=== PATIENT | male | born 1935 | race Caucasian/White ===

== ENCOUNTER → 2017-02-05 | Outpatient (CLI) | payer BC ==
[~2017-02-05] MED LIST: ASPEC325 PO; CRD30 PO; DILT120C68 PO; GLIP-197 PO; LISI40TA PO; LOSA100T65 PO; METO100T44 PO; METO50TA7 PO; MULT-506 PO; MULT-513 PO; OMEP40CA PO; OMEP40CA41 PO; PANT40TA PO; RANI150T3 PO; RIVA1TAB4 PO; SIMV40TA2 PO; SUCR5SUS PO
[2017-02-05 11:23] LABS: ALT/SGPT 24 U/L (12-78); BLOOD UREA NITROGEN 16 mg/dl (7-18); BUN/CREATININE RATIO 11.1 (10-20); CALCIUM 8.8 mg/dl (8.5-10.1); CARBON DIOXIDE 28 mmol/L (21-32); CHLORIDE 106 mmol/L (98-107); CHOLESTEROL 104 mg/dl (0-200); GLUCOSE 164 mg/dl (70-99); POTASSIUM 4.5 mmol/L (3.5-5.1); SODIUM 141 mmol/L (136-145)
[2017-02-05 11:33] LABS: ALB/GLOB RATIO 1.4 (0.9-2); ALKALINE PHOSPHATASE 65 U/L (45-117); AST/SGOT 12 U/L (15-37); CHOLESTEROL/HDL RATIO 2.9; HDL CHOLESTEROL 36 mg/dl; LDL CHOLESTEROL CALCULATED 27 mg/dl; TRIGLYCERIDES 205 mg/dl (0-150); VERY LOW DENSITY LIPOPROT CALC 41 mg/dl
[2017-02-05 11:36] LABS: ESTIMATED AVERAGE GLUCOSE 163 mg/dl; HA1C FLAG Normal (Normal)
[2017-02-05 11:36] LABS: RATIO 51.6 mcg/mg (0-30.0)
== END | disposition home or self-care (01) ==
LOC: C.LABBC 07:40
PROVIDERS: ATTEND Family Medicine
DX: E11.9 Type 2 diabetes mellitus without complications (principal); I10 Essential (primary) hypertension; I48.92 Unspecified atrial flutter; E78.5 Hyperlipidemia, unspecified

== ENCOUNTER 2017-02-10 12:04 | Inpatient (IN) | payer BC, OTHER ==
[~2017-02-10] VITALS: Ht 180.3 cm; Wt 82.2 kg
[~2017-02-10 12:04] MED LIST changes: -CRD30 PO; -DILT120C68 PO; -LOSA100T65 PO; -METO100T44 PO; -MULT-506 PO; -OMEP40CA41 PO; -PANT40TA PO; -SUCR5SUS PO
[2017-02-10] MEDS ORDERED: SODIUM CHLORIDE 0.9% 1000ML 1,000 ML IV STA (12:20)
[2017-02-10] MEDS ORDERED: SODIUM CHLORIDE 0.9% 500ML 500 ML IV STA (12:20)
[2017-02-10] MEDS ORDERED: FENTANYL CITRATE INJ 50 MCG/1 ML 2 ML VIAL IV STA ×2 (12:20→14:02)
[2017-02-10] MEDS ORDERED: ONDANSETRON INJ 2 MG/ML 2 ML VIAL IV STA ×2 (12:20→14:52)
[2017-02-10] MEDS ORDERED: OPTIRAY 320 IV PRN (12:30)
--- NOTE | 2017-02-10 13:05 | EMERGENCY ROOM VISIT NOTE ---
History Report prepared by Regi: Gillian Walters Under the Supervision of: Dr. Pinky Gonzalez M.D. First contact with patient: 12:15 Chief Complaint: ABDOMINAL PAIN Stated Complaint: ABD. PAIN SINCE 5 AM History of Present Illness The patient is a 81 year old male who presents to the Emergency Room with complaints of worsening epigastric abdominal pain beginning 7 hours prior to arrival. The patient states that he woke up with abdominal pain that felt like bloating and gas. He became very uncomfortable and nauseated. The patient notes he has been vomiting but only dry heaving. He has been on a carb free diet recently and does not know if this is the cause of him going to extreme with the diet. He notes loose stools in his colostomy but denies diarrhea. The patient is on Xarelto for atrial fibrillation. 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 Review of Systems See HPI for pertinent positives & negatives. A total of 10 systems reviewed and were otherwise negative. Past Medical & Surgical Medical Problems: (1) Atrial fibrillation (2) Bowel obstruction (3) Colon cancer Surgical Problems: (1) S/P appendectomy Family History Cancer Hypertension Social History Smoking Status: Former Smoker Smokeless Tobacco Use: No Marital Status: Housing Status: lives with family Occupation Status: retired Current/Historical Medications Scheduled Glipizide (Glipizide Er), 5 MG PO DAILY Losartan Potassium (Cozaar), 100 MG PO DAILY Metoprolol Succ (Toprol Xl) (Toprol-Xl), 100 MG PO DAILY Omeprazole (Prilosec), 40 MG PO DAILY Ranitidine Hcl (Zantac), 150 MG PO PM Rivaroxaban (Xarelto), 20 MG PO DAILY Simvastatin (Zocor), 40 MG PO QPM Allergies Coded Allergies: Tetanus Toxoid (Verified Allergy, Unknown, 02/10/17) Physical Exam Vital Signs Date Time Temp Pulse Resp B/P (MAP) Pulse Ox O2 Delivery O2 Flow Rate FiO2 02/10/17 14:09 81 17 140/98 99 02/10/17 12:37 87 02/10/17 12:11 36.7 122 20 157/115 97 Room Air Physical Exam Vital signs reviewed. General: Well-appearing male, in no significant distress. HEENT: No scleral icterus, PERRLA, neck supple. Atraumatic. Cardiovascular: Regular rate and rhythm, no extra sounds. Pulmonary: Clear to auscultation bilaterally, normal work of breathing. Abdomen: Soft, minimal tenderness, mild distention, positive bowel sounds, positive tympanic. The area surrounding the left colostomy is slightly distended. The colostomy is easily penetrated with a finger. There is no apparent stricture. There is stool in the ostomy bag. Musculoskeletal: Atraumatic, no peripheral edema. Neurologic: Patient awake alert and oriented x 3 Skin: Warm, dry, no rash Medical Decision & Procedures ER Provider Diagnostic Interpretation: CT results as stated below per my review and radiologist interpretation: ABDOMEN AND PELVIS CT WITH IV CONTRAST CT DOSE: 539.05 mGy.cm HISTORY: Bowel distention abd distension, colostomy, h/o rectal cancer TECHNIQUE: Multiaxial CT images of the abdomen and pelvis were performed following the use of intravenous contrast. COMPARISON STUDY: None. This severely compromises the motility of the exam FINDINGS: Mild bibasilar dependent atelectatic change. Heart is enlarged. Mild fatty infiltration of liver. Gallbladder is negative for distention. Small renal cysts. Prior partial sigmoid and rectal resection. Unremarkable postoperative changes to the presacral region. Distended loops of proximal to mid small bowel tapering to a normal caliber small bowel in the mid abdominal region. A well-defined obstructing mass is not seen. Differential considerations include possibility of metastatic disease, developing post treatment stricture, or nonspecific enteritis. Pancreas is unremarkable. There is partial fecal is elevation of the distended loops small bowel. Colonic pattern on a postoperative basis is most likely unremarkable. There is a small component of redundancy of the colon within the subcutaneous tissues deep to the ostomy site. This does not appear to be an obstructive finding. There is a 1.8 cm node anterior to the inferior vena cava transaxial image 48. Several small mesenteric nodes are present. IMPRESSION: 1. Findings of a rectal sigmoid resection and left anterior ostomy. 2. Components of the colon are seen to be redundant within the subcutaneous tissues deep to the ostomy but this does not appear to be an obstructive finding. 3. Findings consistent with developing mid small bowel obstruction with a smoothly tapered narrowing identified in the low central abdominal region. 4. Several scattered abdominal and retroperitoneal nodes measuring up to 1.8 cm. 5. Diagnostic considerations include a developing obstruction due to post therapeutic scarring/fibrosis, versus enteritis and/or metastatic change. Electronically signed by: Jason Khan M.D. 02/10/2017 2:35 PM Dictated Date/Time: 02/10/2017 2:29 PM Laboratory Results 02/10/17 12:45 Red Blood Count 5.50, Mean Corpuscular Volume 90.0, Mean Corpuscular Hemoglobin 31.8, Mean Corpuscular Hemoglobin Concent 35.4, Mean Platelet Volume 9.8, Neutrophils (%) (Auto) 86.1, Lymphocytes (%) (Auto) 7.2, Monocytes (%) (Auto) 5.5, Eosinophils (%) (Auto) 0.4, Basophils (%) (Auto) 0.3, Neutrophils # (Auto) 8.47, Lymphocytes # (Auto) 0.71, Monocytes # (Auto) 0.54, Eosinophils # (Auto) 0.04, Basophils # (Auto) 0.03 02/10/17 12:45 Test 02/10/17 12:45 02/10/17 13:30 02/10/17 14:14 White Blood Count 9.84 K/uL (4.8-10.8) Red Blood Count 5.50 M/uL (4.7-6.1) Hemoglobin 17.5 g/dL (14.0-18.0) Hematocrit 49.5 % (42-52) Mean Corpuscular Volume 90.0 fL (80-100) Mean Corpuscular Hemoglobin 31.8 pg (25-34) Mean Corpuscular Hemoglobin Concent 35.4 g/dl (32-36) Platelet Count 211 K/uL (130-400) Mean Platelet Volume 9.8 fL (7.4-10.4) Neutrophils (%) (Auto) 86.1 % Lymphocytes (%) (Auto) 7.2 % Monocytes (%) (Auto) 5.5 % Eosinophils (%) (Auto) 0.4 % Basophils (%) (Auto) 0.3 % Neutrophils # (Auto) 8.47 K/uL (1.4-6.5) Lymphocytes # (Auto) 0.71 K/uL (1.2-3.4) Monocytes # (Auto) 0.54 K/uL (0.11-0.59) Eosinophils # (Auto) 0.04 K/uL (0-0.5) Basophils # (Auto) 0.03 K/uL (0-0.2) RDW Standard Deviation 42.4 fL (36.4-46.3) RDW Coefficient of Variation 12.9 % (11.5-14.5) Immature Granulocyte % (Auto) 0.5 % Immature Granulocyte # (Auto) 0.05 K/uL (0.00-0.02) Anion Gap 10.0 mmol/L (3-11) Est Creatinine Clear Calc Drug Dose 39.9 ml/min Estimated GFR () 46.8 Estimated GFR (Non- 40.4 BUN/Creatinine Ratio 12.4 (10-20) Calcium Level 9.7 mg/dl (8.5-10.1) Magnesium Level 2.4 mg/dl (1.8-2.4) Total Bilirubin 1.5 mg/dl (0.2-1) Direct Bilirubin 0.3 mg/dl (0-0.2) Aspartate Amino Transf (AST/SGOT) 19 U/L (15-37) Alanine Aminotransferase (ALT/SGPT) 26 U/L (12-78) Alkaline Phosphatase 84 U/L (45-117) Total Protein 8.1 gm/dl (6.4-8.2) Albumin 4.8 gm/dl (3.4-5.0) Lipase 226 U/L (73-393) Urine Color YELLOW Urine Appearance CLEAR (CLEAR) Urine pH 7.0 (4.5-7.5) Urine Specific [place] 1.023 (1.000-1.030) Urine Protein 1+ (NEG) Urine Glucose (UA) 3+ (NEG) Urine Ketones 1+ (NEG) Urine Occult Blood NEG (NEG) Urine Nitrite NEG (NEG) Urine Bilirubin NEG (NEG) Urine Urobilinogen NEG (NEG) Urine Leukocyte Esterase NEG (NEG) Urine WBC (Auto) 0 /hpf (0-5) Urine RBC (Auto) 0-4 /hpf (0-4) Urine Hyaline Casts (Auto) 1-5 /lpf (0-5) Urine Epithelial Cells (Auto) 5-10 /lpf (0-5) Urine Bacteria (Auto) NEG (NEG) Bedside Glucose 200 mg/dl (70-99) Laboratory results per my review. Medications Administered Medications (Trade) Dose Ordered Sig/Oscar Route Start Time Stop Time Status Last Admin Dose Admin Sodium Chloride 500 ml @ 999 mls/hr Q31M STAT IV 02/10/17 12:20 02/10/17 12:50 DC 02/10/17 12:20 999 MLS/HR Sodium Chloride 1,000 ml @ 125 mls/hr Q8H STAT IV 02/10/17 12:20 02/10/17 20:19 02/10/17 12:20 125 MLS/HR Ondansetron HCl (Zofran Inj) 4 mg NOW STAT IV 02/10/17 12:20 02/10/17 12:23 DC 02/10/17 12:41 4 MG Fentanyl Citrate (Fentanyl Inj) 50 mcg NOW STAT IV 02/10/17 12:20 02/10/17 12:23 DC 02/10/17 12:41 50 MCG Fentanyl Citrate (Fentanyl Inj) 50 mcg NOW STAT IV 02/10/17 14:02 02/10/17 14:03 DC 02/10/17 14:11 50 MCG Morphine Sulfate (MoRPHine SULFATE INJ) 4 mg NOW STAT IV 02/10/17 14:52 02/10/17 14:58 DC 02/10/17 15:09 4 MG Ondansetron HCl (Zofran Inj) 4 mg NOW STAT IV 02/10/17 14:52 02/10/17 14:58 DC 02/10/17 15:09 4 MG ECG Indication: abdominal pain Rate (beats per minute): 80 Rhythm: atrial fibrillation Findings: RBBB, other (PVC va Abbarent complex, repolarization abnormalities) Comparison ECG Date: when compared to December 27, 2007 A fib is new (previously documented), criteria for RBBB is once again seen ED Course 1217: Past medical records reviewed. The patient was evaluated in room C5. A complete history and physical examination was performed. 1220: Fentanyl Inj 50 mcg IV, Zofran Inj 4 mg IV, Sodium Chloride 1,000 ml @ 125 mls/hr IV, Sodium Chloride 500 ml @ 999 mls/hr IV. 1402: [id number] Per Unit 6 units SC, Fentanyl Inj 50 mcg IV. 1452: Zofran Inj 4 mg IV, Morphine Sulfate Inj 4 mg IV. 1454: I reviewed the patient's case with Dr. Inder BELCHER. He will evaluate the patient for further management. 1457: Upon reevaluation, the patient is resting comfortably. I discussed laboratory and radiographic results with the patient. She verbalized agreement of the treatment plan. I spoke with Dr. Loving of the [facility] Hospitalist Service. The patient will be evaluated for further management and care. Medical Decision Differential Diagnosis include bowel obstruction, appendicitis, diverticulitis, viral illness, cholecystitis, colitis, UTI. Medication Reconciliation: I attest that I have personally reviewed the patient' s current medication list. Blood Pressure Screening: Patient was found to have an elevated blood pressure and was referred to their primary doctor for recheck and further treatment. This patient was evaluated and appeared to be in no significant distress. IV access was obtained and laboratory work was drawn. Patient was placed on the cardiac catheterization technician and found to be in a rate controlled atrial fibrillation, which is chronic for the patient. He was hydrated with normal saline solution and given several rounds of fentanyl for his pain as well as Zofran for nausea. CT scan of the abdomen and pelvis reveals a developing SBO. Patient's laboratory work reveals a creatinine of 1.7. IV hydration has been continued. Patient required IV morphine for additional pain. Insulin was initially ordered but held as his blood sugar on recheck was 200. The case has been discussed Dr. Wiggins the hospitalist service will evaluate the patient for further management. Patient is aware of the plan and agrees. Consults Time Called: [id number] Consulting Physician: Dr. Inder BELCHER Returned Call: [phone] I reviewed the patient's case with Dr. Inder BELCHER. He will evaluate the patient for further management. Impression Primary Impression: Small bowel obstruction Scribe Attestation The scribe's documentation has been prepared under my direction and personally reviewed by me in its entirety. I confirm that the note above accurately reflects all work, treatment, procedures, and medical decision making performed by me. Departure Information Dispostion Being Evaluated By Hospitalist Referrals Alfonso Ferreira D.O.Int.Med. (PCP)
[2017-02-10] MEDS ORDERED: LOSA100T65 PO (13:08)
[2017-02-10] MEDS ORDERED: OMEP40CA41 PO (13:08)
[2017-02-10 13:16] LABS: BASO % 0.3 %; BASO ABS # 0.03 K/uL (0-0.2); COMPLETE YES; EOS % 0.4 %; HEMATOCRIT 49.5 % (42-52); IG% 0.5 %; LYMPH % 7.2 %; LYMPH ABS # 0.71 K/uL (1.2-3.4); MEAN CORPUSCULAR HEMOGLOBIN 31.8 pg (25-34); MEAN CORPUSCULAR HGB CONC 35.4 g/dl (32-36); MEAN PLATELET VOLUME 9.8 fL (7.4-10.4); MONO % 5.5 %; NEUT % 86.1 %; PLATELET COUNT 211 K/uL (130-400); WHITE BLOOD COUNT 9.84 K/uL (4.8-10.8)
[2017-02-10 13:35] LABS: BUN/CREATININE RATIO 12.4 (10-20); CALCIUM 9.7 mg/dl (8.5-10.1); CREATININE 1.6 mg/dl (0.60-1.40); MAGNESIUM 2.4 mg/dl (1.8-2.4); POTASSIUM 4.3 mmol/L (3.5-5.1)
[2017-02-10] MEDS ORDERED: NovoLIN-R INSULIN PER UNIT CHARGE SC STA (14:02)
[2017-02-10 14:14] LABS: URINE APPEARANCE CLEAR (CLEAR); URINE BILIRUBIN NEG (NEG); URINE COLOR YELLOW; URINE NITRITE NEG (NEG); URINE SPECIFIC GRAVITY 1.023 (1.000-1.030); UROBILINOGEN NEG (NEG); ZZUR CULT IF INDIC CLEAN CATCH NO
[2017-02-10 14:19] LABS: MANUAL MICROSCOPIC REQUIRED? NO; REVIEW REQ? NO
--- NOTE | 2017-02-10 14:37 | DIAGNOSTIC IMAGING REPORT ---
ABDOMEN AND PELVIS CT WITH IV CONTRAST CT DOSE: 539.05 mGy.cm HISTORY: Bowel distention abd distension, colostomy, h/o rectal cancer TECHNIQUE: Multiaxial CT images of the abdomen and pelvis were performed following the use of intravenous contrast. COMPARISON STUDY: None. This severely compromises the motility of the exam FINDINGS: Mild bibasilar dependent atelectatic change. Heart is enlarged. Mild fatty infiltration of liver. Gallbladder is negative for distention. Small renal cysts. Prior partial sigmoid and rectal resection. Unremarkable postoperative changes to the presacral region. Distended loops of proximal to mid small bowel tapering to a normal caliber small bowel in the mid abdominal region. A well-defined obstructing mass is not seen. Differential considerations include possibility of metastatic disease, developing post treatment stricture, or nonspecific enteritis. Pancreas is unremarkable. There is partial fecal is elevation of the distended loops small bowel. Colonic pattern on a postoperative basis is most likely unremarkable. There is a small component of redundancy of the colon within the subcutaneous tissues deep to the ostomy site. This does not appear to be an obstructive finding. There is a 1.8 cm node anterior to the inferior vena cava transaxial image 48. Several small mesenteric nodes are present. IMPRESSION: 1. Findings of a rectal sigmoid resection and left anterior ostomy. 2. Components of the colon are seen to be redundant within the subcutaneous tissues deep to the ostomy but this does not appear to be an obstructive finding. 3. Findings consistent with developing mid small bowel obstruction with a smoothly tapered narrowing identified in the low central abdominal region. 4. Several scattered abdominal and retroperitoneal nodes measuring up to 1.8 cm. 5. Diagnostic considerations include a developing obstruction due to post therapeutic scarring/fibrosis, versus enteritis and/or metastatic change. Electronically signed by: Jason Khan M.D. 02/10/2017 2:35 PM Dictated Date/Time: 02/10/2017 2:29 PM
[2017-02-10] MEDS ORDERED: MoRPHine SULFATE 4 MG/ML 1 ML CARP\\VIAL IV STA (14:52)
[2017-02-10] MEDS ORDERED: MoRPHine SULFATE 2 MG/ML CARP IV PRN (15:45)
[2017-02-10] MEDS ORDERED: METOPROLOL TARTRATE 1 MG/ML VIAL IV PRN (15:45)
[2017-02-10] MEDS ORDERED: OXYCODONE HCL IR 5 MG TAB (IMMEDIATE RELEASE) PO PRN (15:45)
[2017-02-10] MEDS ORDERED: DEXTROSE 50% 50 ML SYR IV PRN (15:45)
[2017-02-10] MEDS ORDERED: GLUCOSE 10 TABS/TUBE PO PRN (15:45)
[2017-02-10] MEDS ORDERED: INSULIN ASPART 100 UNITS/ML 3 ML PEN SC SCH (16:00)
[2017-02-10] MEDS ORDERED: GLUCOSE 40% GEL 15 GM TUBE PO PRN (16:15)
[2017-02-10] MEDS ORDERED: HYDROmorphone INJ 0.5 MG/0.5 ML SYR IV PRN (16:15)
[2017-02-10] MEDS ORDERED: HYDROmorphone INJ 1 MG/ML SYR IV PRN (16:15)
[2017-02-10] MEDS ORDERED: GLUCAGON FOR INJ 1 MG VIAL SQ PRN (16:15)
--- NOTE | 2017-02-10 16:15 | History and Physical ---
History & Physical Date & Time of Service: Feb 10, 2017 at 15:15 Chief Complaint: Abd. Pain Since 5 Am Primary Care Physician: No Doctor, Assigned History of Present Illness Source: patient This is a 81-year-old male with past medical history of hypertension, A. fib on xarelto, hyperlipidemia, diabetes mellitus type 2, colon cancer status post resection and colostomy placement in 1978, remote pipe smoking history ~30 yrs ago x 20 years, who presents to the ER with complaints of severe abdominal pain which started at 0500 today. Patient reports he was up and tolerated breakfast this morning without much abdominal pain or nausea. His pain became worse prior to lunch and developed nausea, so took Pepto-Bismol then developed dry heaves and vomited x 1. He denies hematemesis. Pt does not his ostomy had loose outs this morning. Pain continued to worsen so presented to the ER. Patient reports having a colostomy placed by Dr. Paris ~37 years ago in 1978. He has had multiple revisions of this surgery. Patient also reports surgical history of a left inguinal hernia repair with mesh, and notes that he has a right inguinal hernia currently which has not been surgically repaired. The patient received Morphine 4 mg IV in the ER and reports his pain is improved but still "crampy". Of note the patient does drink 1 glass of red wine daily. He lives at home with his . He does not require supplemental O2 or anything for ambulation assistance. CT was reviewed showing rectosigmoid resection and left anterior ostomy. It appears that there is a mid small bowel obstruction and multiple scattered abdominal and retroperitoneal nodes. Family History Cancer Hypertension Social History Smoking Status: Former Smoker Smokeless Tobacco Use: No Alcohol Use: heavy (1 glass of red wine daily) Drug Use: none Marital Status: Occupational Status: retired Immunizations History of Influenza Vaccine: Yes Influenza Vaccine Date: Jun 24, 2007 History of Tetanus Vaccine?: No History of Pneumococcal: No History of Hepatitis B Vaccine: No Multi-Drug Resistant Organisms History of MDRO: No Allergies Coded Allergies: Tetanus Toxoid (Verified Allergy, Unknown, 02/10/17) Home Medications Scheduled Glipizide (Glipizide Er), 5 MG PO DAILY Losartan Potassium (Cozaar), 100 MG PO DAILY Metoprolol Succ (Toprol Xl) (Toprol-Xl), 100 MG PO DAILY Omeprazole (Prilosec), 40 MG PO DAILY Ranitidine Hcl (Zantac), 150 MG PO PM Rivaroxaban (Xarelto), 20 MG PO DAILY Simvastatin (Zocor), 40 MG PO QPM Review of Systems Constitutional: No fever, sweats or chills Eyes: No diplopia, no worsening or blurred vision ENT: normal hearing, no trouble swallowing Respiratory: No cough, sputum, dyspnea at rest or on exertion Cardiovascular: No chest pain, tightness or palpitations Abdomen: See history of present illness Musculoskeletal: No joint pain, calf pain, swelling Neurologic: No weakness, numbness/tingling, or balance problems Psychiatric: No anxiety or depression Skin: No rash or itch Physical Exam Vital Signs Date Time Temp Pulse Resp B/P (MAP) Pulse Ox O2 Delivery O2 Flow Rate FiO2 02/10/17 14:09 81 17 140/98 99 02/10/17 12:37 87 02/10/17 12:11 36.7 122 20 157/115 97 Room Air General: awake, alert, no apparent distress Head: Normocephalic, atraumatic ENT: PERRL, EOMI, no pharyngeal exudate, mucous membranes moist Chest: on room air, + minor expiratory wheeze, no rales or crackles. Cardiac: Irregularly irregular, no murmur, no JVD, normal peripheral pulses, good capillary refill Abdominal: LLQ colostomy in place, no stool in bag, abdomen appears distended around the area of the ostomy, positive abdominal pain with palpation around the umbilicus, + tympany to percussion. Extremities: Normal inspection, no peripheral edema or erythema, calfs nontender to palpation Psych: Normal mood and affect Neuro: AAO x 3, speech is clear, no peripheral sensory deficits Diagnostics Laboratory Results Results Past 24 Hours Test 02/10/17 12:45 02/10/17 13:30 02/10/17 14:14 Range/Units White Blood Count 9.84 4.8-10.8 K/uL Red Blood Count 5.50 4.7-6.1 M/uL Hemoglobin 17.5 14.0-18.0 g/dL Hematocrit 49.5 42-52 % Mean Corpuscular Volume 90.0 80-100 fL Mean Corpuscular Hemoglobin 31.8 25-34 pg Mean Corpuscular Hemoglobin Concent 35.4 32-36 g/dl Platelet Count 211 130-400 K/uL Mean Platelet Volume 9.8 7.4-10.4 fL Neutrophils (%) (Auto) 86.1 % Lymphocytes (%) (Auto) 7.2 % Monocytes (%) (Auto) 5.5 % Eosinophils (%) (Auto) 0.4 % Basophils (%) (Auto) 0.3 % Neutrophils # (Auto) 8.47 1.4-6.5 K/uL Lymphocytes # (Auto) 0.71 1.2-3.4 K/uL Monocytes # (Auto) 0.54 0.11-0.59 K/uL Eosinophils # (Auto) 0.04 0-0.5 K/uL Basophils # (Auto) 0.03 0-0.2 K/uL RDW Standard Deviation 42.4 36.4-46.3 fL RDW Coefficient of Variation 12.9 11.5-14.5 % Immature Granulocyte % (Auto) 0.5 % Immature Granulocyte # (Auto) 0.05 0.00-0.02 K/uL Sodium Level 134 136-145 mmol/L Potassium Level 4.3 3.5-5.1 mmol/L Chloride Level 101 98-107 mmol/L Carbon Dioxide Level 23 21-32 mmol/L Anion Gap 10.0 3-11 mmol/L Blood Urea Nitrogen 20 7-18 mg/dl Creatinine 1.60 0.60-1.40 mg/dl Est Creatinine Clear Calc Drug Dose 39.9 ml/min Estimated GFR () 46.8 Estimated GFR (Non- 40.4 BUN/Creatinine Ratio 12.4 10-20 Random Glucose 252 70-99 mg/dl Calcium Level 9.7 8.5-10.1 mg/dl Magnesium Level 2.4 1.8-2.4 mg/dl Total Bilirubin 1.5 0.2-1 mg/dl Direct Bilirubin 0.3 0-0.2 mg/dl Aspartate Amino Transf (AST/SGOT) 19 15-37 U/L Alanine Aminotransferase (ALT/SGPT) 26 12-78 U/L Alkaline Phosphatase 84 45-117 U/L Total Protein 8.1 6.4-8.2 gm/dl Albumin 4.8 3.4-5.0 gm/dl Lipase 226 73-393 U/L Urine Color YELLOW Urine Appearance CLEAR CLEAR Urine pH 7.0 4.5-7.5 Urine Specific [place] 1.023 1.000-1.030 Urine Protein 1+ NEG Urine Glucose (UA) 3+ NEG Urine Ketones 1+ NEG Urine Occult Blood NEG NEG Urine Nitrite NEG NEG Urine Bilirubin NEG NEG Urine Urobilinogen NEG NEG Urine Leukocyte Esterase NEG NEG Urine WBC (Auto) 0 0-5 /hpf Urine RBC (Auto) 0-4 0-4 /hpf Urine Hyaline Casts (Auto) 1-5 0-5 /lpf Urine Epithelial Cells (Auto) 5-10 0-5 /lpf Urine Bacteria (Auto) NEG NEG Bedside Glucose 200 70-99 mg/dl Diagnostic Radiology ABDOMEN AND PELVIS CT WITH IV CONTRAST CT DOSE: 539.05 mGy.cm HISTORY: Bowel distention abd distension, colostomy, h/o rectal cancer TECHNIQUE: Multiaxial CT images of the abdomen and pelvis were performed following the use of intravenous contrast. COMPARISON STUDY: None. This severely compromises the motility of the exam FINDINGS: Mild bibasilar dependent atelectatic change. Heart is enlarged. Mild fatty infiltration of liver. Gallbladder is negative for distention. Small renal cysts. Prior partial sigmoid and rectal resection. Unremarkable postoperative changes to the presacral region. Distended loops of proximal to mid small bowel tapering to a normal caliber small bowel in the mid abdominal region. A well-defined obstructing mass is not seen. Differential considerations include possibility of metastatic disease, developing post treatment stricture, or nonspecific enteritis. Pancreas is unremarkable. There is partial fecal is elevation of the distended loops small bowel. Colonic pattern on a postoperative basis is most likely unremarkable. There is a small component of redundancy of the colon within the subcutaneous tissues deep to the ostomy site. This does not appear to be an obstructive finding. There is a 1.8 cm node anterior to the inferior vena cava transaxial image 48. Several small mesenteric nodes are present. IMPRESSION: 1. Findings of a rectal sigmoid resection and left anterior ostomy. 2. Components of the colon are seen to be redundant within the subcutaneous tissues deep to the ostomy but this does not appear to be an obstructive finding. 3. Findings consistent with developing mid small bowel obstruction with a smoothly tapered narrowing identified in the low central abdominal region. 4. Several scattered abdominal and retroperitoneal nodes measuring up to 1.8 cm. 5. Diagnostic considerations include a developing obstruction due to post therapeutic scarring/fibrosis, versus enteritis and/or metastatic change. Electronically signed by: Jason Khan M.D. 02/10/2017 2:35 PM Dictated Date/Time: 02/10/2017 2:29 PM The status of this report is Signed. EKG Vent. rate 80 BPM AR interval * ms QRS duration 152 ms QT/QTc 412/475 ms P-R-T axes * 115 -22 Atrial fibrillation with premature ventricular or aberrantly conducted complexes Right bundle branch block T wave abnormality, consider inferior ischemia Abnormal ECG When compared with ECG of 26-JUN-2016 07:45, Atrial fibrillation has replaced Sinus rhythm Confirmed by ALBERT MCLEAN ([id number]) on 02/10/2017 3:19:52 PM Impression Assessment and Plan This is a 81-year-old male with past medical history of hypertension, A. fib on' s around toe, hyperlipidemia, diabetes mellitus type 2, colon cancer status post resection and colostomy placement, remote smoking history of type tobacco approximately 30 yrs ago x 20 years who presents to the ER with complaints of severe abdominal pain which started at 0500 today. Small bowel obstruction s/p colon mass resection and ostomy placement in 1978 - Admit to MedSurg - Consult with general surgery, Dr. Verdin was spoken to over the phone by the attending. - Nothing by mouth for now, will start maintenance fluids with NSS at 80mL/hr - Pt may require NGT to intermittent suction overnight if his symptoms do not improve or he continues to be nauseous. - No leukocytosis, and VSS. - Will switch meds to IV if possible - PT/OT consults Hypertension - Hold CURRICULUM COACH losartan and metoprolol succinate. Can resume if allowed po meds. - We will order IV Lopressor every 4 when necessary for HR > 120 Afib - Hold xarelto for possibility of surgical intervention CKD stage III - Chronic pts Cr.= 1.6, baseline appears to be ~ 1.4 - Hold nephrotoxins - Will place on IVFs. DM II - Hold CURRICULUM COACH glipizide, will place him on an insulin sliding scale with Accu- Cheks ACHS - Last Hgb A1C checked last week = 7.2 Hyperlipidemia -Continue simvastatin DVT Prophylaxis: Teds, SCDs, hold xarelto for possible surgical intervention CODE STATUS: DO NOT RESUSCITATE Disposition: Patient from home, lives with his , will await surgical eval, likely discharge home within 1-2 days PA Physician Supervision Note: I interviewed and examined the patient. Discussed with Dali Gardner PAC and agree with findings and plan as documented in the note. Any exceptions or clarifications are listed here: None This patient has a chronic colostomy since 1975 he presents with crampy abdominal pain and nausea with dry heaves, CT scan consistent with small bowel obstruction: Exam is concerning for parastomal hernia Vital signs are reviewed and stable Abdomen is with hyperactive bowel sounds A mounding of his abdomen near stomal exit tenderness examination at that point and tympany to examine his abdomen I personally contacted Dr. Verdin, general surgery, he evaluated the patient in the ER attempted to reduce the hernia was unsuccessful he did place an NG tube evaluated in the morning with a KUB and consider surgical correction if no resolution overnight and hydrate and control the patient's pain Documented By: Zhen Loving Level of Care Med/Surg Resuscitation Status DO NOT RESUSCITATE VTE Prophylaxis VTE Risk Assessment Done? Y/N: No Risk Level: Low Given or contraindicated: Other Anticoagulation (holding xarelto), T.E.D. Stockings, SCD's
[2017-02-10 16:47] VITALS: BP 148/91; PULSE 104; TEMP 37.1; O2SAT 92; Ht 180.3 cm; Wt 82.2 kg
[2017-02-10] MEDS ORDERED: LORAZEPAM 2 MG/ML 1 ML VIAL IV PRN (17:15)
[2017-02-10] MEDS ORDERED: NURSING VERBAL MED ORDER ONE ×2 (17:15→19:45)
--- NOTE | 2017-02-10 17:16 | Surgery Consultation ---
Consultation Date of Consultation: Feb 10, 2017. Attending Physician: History of Present Illness pt woke up this am with nausea, dry heaves and some aby-umbilical discomfort...had been feeling fine prior. has hx of colectomy with colostomy since the 1970s. pain has improved since he just vomitted some fluid for first time. Past Medical/Surgical History Medical Problems: (1) Small bowel obstruction Status: Acute Family History Cancer Hypertension Social History Smoking Status: Former Smoker Smokeless Tobacco Use: No Alcohol Use: heavy (1 glass of red wine daily) Drug Use: none Marital Status: Housing Status: lives with family Occupation Status: retired Allergies Coded Allergies: Tetanus Toxoid (Verified Allergy, Unknown, 02/10/17) Home Medications Scheduled Glipizide (Glipizide Er), 5 MG PO DAILY Losartan Potassium (Cozaar), 100 MG PO DAILY Metoprolol Succ (Toprol Xl) (Toprol-Xl), 100 MG PO DAILY Omeprazole (Prilosec), 40 MG PO DAILY Ranitidine Hcl (Zantac), 150 MG PO PM Rivaroxaban (Xarelto), 20 MG PO DAILY Simvastatin (Zocor), 40 MG PO QPM Current Inpatient Medications Current Inpatient Medications Medications (Trade) Dose Ordered Sig/Oscar Route Start Time Stop Time Status Last Admin Dose Admin Sodium Chloride 1,000 ml @ 125 mls/hr Q8H STAT IV 02/10/17 12:20 02/10/17 20:19 02/10/17 12:20 125 MLS/HR Ioversol (Optiray 320) 125 ml UD PRN IV 02/10/17 12:30 02/14/17 12:29 Ondansetron HCl (Zofran Inj) 4 mg Q6H PRN IV 02/10/17 15:45 03/12/17 15:44 Metoprolol Tartrate (Lopressor Iv) 5 mg Q4H PRN IV 02/10/17 15:45 03/12/17 15:44 UNV Insulin Aspart (novoLOG ASPART) SLIDING SCALE If C... ACHS SC 02/10/17 16:00 03/12/17 15:59 Glucose (Glucose Chew Tab) 4-8 Tablets 4 Tabl... UD PRN PO 02/10/17 15:45 03/12/17 15:44 Dextrose (Dextrose 50% 50ML Syringe) 25-50ML OF 50% DW IV FOR... UD PRN IV 02/10/17 15:45 03/12/17 15:44 Oxycodone HCl (Roxicodone Immediate Rel Tab) 5 mg Q4H PRN PO 02/10/17 15:45 02/24/17 15:44 Glucose (Glucose 40% Gel) 15-30 GRAMS 15 GRAMS... UD PRN PO 02/10/17 16:15 03/12/17 16:14 Glucagon (Glucagon Inj) 1 mg UD PRN SQ 02/10/17 16:15 03/12/17 16:14 Hydromorphone HCl (Dilaudid Inj) 0.5 mg Q2H PRN IV 02/10/17 16:15 02/24/17 16:14 Hydromorphone HCl (Dilaudid Inj) 1 mg Q4H PRN IV 02/10/17 16:15 02/24/17 16:14 Miscellaneous Information (Nursing Verbal Med Order) 1 ea ONE ONCE N/A 02/10/17 17:15 02/10/17 17:16 UNV Review of Systems Abdomen: + pain, + nausea, + vomiting Physical Exam Date Time Temp Pulse Resp B/P (MAP) Pulse Ox O2 Delivery O2 Flow Rate FiO2 02/10/17 16:10 90 20 153/95 96 Room Air 02/10/17 14:09 81 17 140/98 99 02/10/17 12:37 87 02/10/17 12:11 36.7 122 20 157/115 97 Room Air General Appearance: + mild distress Head: normocephalic, atraumatic Eyes: normal inspection, EOMI ENT: hearing grossly normal Neck: supple, no JVD Respiratory/Chest: no respiratory distress, no accessory muscle use Abdomen/GI: soft, + tenderness, + distended, + hernia, + pertinent finding ( digitilized stoma without success. also attempted placement of red rubber cath without success. stoma pink. minimal tenderness. + parastomal hernia. non- reducible) Neurologic/Psych: alert, oriented x 3 Skin: normal color, warm/dry Laboratory Results Last 24 Hours Test 02/10/17 12:45 02/10/17 13:30 02/10/17 14:14 White Blood Count 9.84 K/uL Red Blood Count 5.50 M/uL Hemoglobin 17.5 g/dL Hematocrit 49.5 % Mean Corpuscular Volume 90.0 fL Mean Corpuscular Hemoglobin 31.8 pg Mean Corpuscular Hemoglobin Concent 35.4 g/dl Platelet Count 211 K/uL Mean Platelet Volume 9.8 fL Neutrophils (%) (Auto) 86.1 % Lymphocytes (%) (Auto) 7.2 % Monocytes (%) (Auto) 5.5 % Eosinophils (%) (Auto) 0.4 % Basophils (%) (Auto) 0.3 % Neutrophils # (Auto) 8.47 K/uL Lymphocytes # (Auto) 0.71 K/uL Monocytes # (Auto) 0.54 K/uL Eosinophils # (Auto) 0.04 K/uL Basophils # (Auto) 0.03 K/uL RDW Standard Deviation 42.4 fL RDW Coefficient of Variation 12.9 % Immature Granulocyte % (Auto) 0.5 % Immature Granulocyte # (Auto) 0.05 K/uL Sodium Level 134 mmol/L Potassium Level 4.3 mmol/L Chloride Level 101 mmol/L Carbon Dioxide Level 23 mmol/L Anion Gap 10.0 mmol/L Blood Urea Nitrogen 20 mg/dl Creatinine 1.60 mg/dl Est Creatinine Clear Calc Drug Dose 39.9 ml/min Estimated GFR () 46.8 Estimated GFR (Non- 40.4 BUN/Creatinine Ratio 12.4 Random Glucose 252 mg/dl Calcium Level 9.7 mg/dl Magnesium Level 2.4 mg/dl Total Bilirubin 1.5 mg/dl Direct Bilirubin 0.3 mg/dl Aspartate Amino Transf (AST/SGOT) 19 U/L Alanine Aminotransferase (ALT/SGPT) 26 U/L Alkaline Phosphatase 84 U/L Total Protein 8.1 gm/dl Albumin 4.8 gm/dl Lipase 226 U/L Urine Color YELLOW Urine Appearance CLEAR Urine pH 7.0 Urine Specific [place] 1.023 Urine Protein 1+ Urine Glucose (UA) 3+ Urine Ketones 1+ Urine Occult Blood NEG Urine Nitrite NEG Urine Bilirubin NEG Urine Urobilinogen NEG Urine Leukocyte Esterase NEG Urine WBC (Auto) 0 /hpf Urine RBC (Auto) 0-4 /hpf Urine Hyaline Casts (Auto) 1-5 /lpf Urine Epithelial Cells (Auto) 5-10 /lpf Urine Bacteria (Auto) NEG Bedside Glucose 200 mg/dl Assessment & Plan SBO likely secondary to parastomal hernia clinically does not appear to have ischemia feeling somewhat better since he finally had some emesis attempted manual reduction without success. digitilized the stoma with finger and red rubber cath without success pt agreeable now to attempt NGT. discussed with nursing. give ativan and some dilaudid to help accomplish this IVF. repeat KUB in AM. if no considerable improvement may need OR for release SBO and repair parastomal hernia. not urgent at this point. abdomen minimally tender. will follow closely.
[2017-02-10] MEDS ORDERED: LORAZEPAM 2 MG/ML 1 ML VIAL ONE (17:26)
[2017-02-10] MEDS ORDERED: HydrALAZINE HCL 20 MG/ML VIAL IV PRN (18:00)
[2017-02-10] MEDS: INSULIN ASPART 100 UNITS/ML 3 ML PEN SC SCH ×2 (19:05→23:50)
[2017-02-10] MEDS: SODIUM CHLORIDE 0.9% 1000ML 1,000 ML IV SCH (19:58)
[2017-02-10] MEDS: METOPROLOL TARTRATE 25 MG TAB PO SCH (20:44)
[2017-02-10 22:45] VITALS: BP 164/98; PULSE 117; TEMP 36.6; O2SAT 93
[2017-02-10] MEDS: LORAZEPAM INJ 1 MG in SYRINGE 0.5 ML IV PRN (23:47)
[2017-02-11] VITALS (8 sets, daily range): BP systolic 102–134; BP diastolic 64–92; PULSE 90–133; TEMP 36.4–37.3; O2SAT 91–96
[2017-02-11] MEDS: INSULIN ASPART 100 UNITS/ML 3 ML PEN SC SCH ×4 (05:41→23:52)
[2017-02-11 06:40] LABS: BASO % 0.2 %; BASO ABS # 0.02 K/uL (0-0.2); COMPLETE YES; HEMATOCRIT 46.5 % (42-52); IG% 0.1 %; LYMPH % 5.2 %; MEAN CELL VOLUME 89.8 fL (80-100); MEAN CORPUSCULAR HEMOGLOBIN 30.7 pg (25-34); MEAN CORPUSCULAR HGB CONC 34.2 g/dl (32-36); MEAN PLATELET VOLUME 9.1 fL (7.4-10.4); MONO % 11.5 %; PLATELET COUNT 188 K/uL (130-400); RED BLOOD COUNT 5.18 M/uL (4.7-6.1); WHITE BLOOD COUNT 9.53 K/uL (4.8-10.8)
[2017-02-11 07:01] LABS: BUN/CREATININE RATIO 13.8 (10-20); CALCIUM 8.8 mg/dl (8.5-10.1); CREATININE 1.2 mg/dl (0.60-1.40); POTASSIUM 4.4 mmol/L (3.5-5.1)
[2017-02-11] MEDS: SODIUM CHLORIDE 0.9% 1000ML 1,000 ML IV SCH ×3 (07:55→18:46)
--- NOTE | 2017-02-11 08:26 | DIAGNOSTIC IMAGING REPORT ---
KUB CLINICAL HISTORY: Small bowel obstruction. FINDINGS: 2 AP, portable, supine abdominal radiographs are correlated with abdominal CT dated 02/10/2017. An enteric tube has been placed. The tip projects over the proximal stomach. The side holes are located above the diaphragm. There is persistent gaseous distention of the small bowel with loops measuring up to 4 cm. The appearance remains consistent with small bowel obstruction. Fecal retention is noted in the right colon. No evidence of intraperitoneal free air is seen on these supine images. Postoperative change is noted in the pelvis. Excreted contrast fills the bladder. The skeletal structures are osteopenic. A right hip arthroplasty is in place. Lumbosacral spondylosis is noted. The heart is enlarged and the lung bases are clear as visualized. IMPRESSION: 1. An enteric tube has been placed. The tip projects over the proximal stomach with the side holes above the diaphragm. This should be advanced. 2. There is evidence of persistent small bowel obstruction. Electronically signed by: Behzad Bradley M.D. 02/11/2017 8:24 AM Dictated Date/Time: 02/11/2017 8:22 AM
[2017-02-11] MEDS ORDERED: SODIUM CHLORIDE 0.9% 500ML 500 ML IV SCH (08:30)
[2017-02-11 09:14] LABS: INR 1.1 (0.9-1.1); PARTIAL THROMBOPLASTIN RATIO 1.2; PROTHROMBIN TIME (PATIENT) 11.9 SECONDS (9.0-12.0)
[2017-02-11] MEDS: METOPROLOL TARTRATE 25 MG TAB PO SCH ×2 (09:25→21:20)
[2017-02-11] MEDS ORDERED: NEOSTIGMINE METHYLSULFATE 5 MG/5 ML SYR ONE (09:43)
[2017-02-11] MEDS ORDERED: ROCURONIUM BROMIDE 10 MG/ML 5 ML VIAL ONE (09:43)
[2017-02-11] MEDS ORDERED: MIDAZOLAM HCL 1 MG/ML 2ML VIAL ONE (09:43)
[2017-02-11] MEDS ORDERED: PROPOFOL IV EMULSION 10 MG/ML 20 ML VIAL IV ONE (09:43)
[2017-02-11] MEDS ORDERED: ONDANSETRON INJ 2 MG/ML 2 ML VIAL ONE (09:43)
[2017-02-11] MEDS ORDERED: GLYCOPYRROLATE INJ 0.2 MG/ML VIAL ONE (09:43)
[2017-02-11] MEDS ORDERED: FENTANYL CITRATE INJ 50 MCG/1 ML 2 ML VIAL ONE (09:43)
[2017-02-11] MEDS ORDERED: DEXAMETHASONE SOD INJ 4 MG/ML VIAL ONE (09:43)
--- NOTE | 2017-02-11 09:55 | History & Physical Bridge Note ---
H&P Re-Evaluation Bridge Note: I have examined the patient, reviewed the History & Physical and in the interval since the performance of the History & Physical I have noted the following changes of clinical significance: No changes noted reviewed ct scan and examined pt appears to have small bowel obstruction in lower abd with transition point will plan exp discussed with pt since clinically pt have more abd pain
[2017-02-11] MEDS ORDERED: PROMETHAZINE HCL INJ 6.25 MG in SODIUM CHLORIDE 0.9% 50ML 50 ML IV PRN (11:00)
[2017-02-11] MEDS ORDERED: HYDROmorphone INJ 1 MG/ML SYR IV PRN (11:00)
[2017-02-11] MEDS ORDERED: ATROPINE SULFATE 0.1 MG/ML 5ML SYR IV PRN (11:00)
[2017-02-11] MEDS ORDERED: ONDANSETRON INJ 2 MG/ML 2 ML VIAL IV PRN (11:00)
[2017-02-11] MEDS ORDERED: EpHEDrine SULFATE INJ 50 MG/ML AMP IV PRN (11:00)
--- NOTE | 2017-02-11 11:30 | [facility] Operative Report ---
Operative Report Operative Date Feb 11, 2017. Pre-Operative Diagnosis Small bowel obstruction Post-Operative Diagnosis sbo secondary to adhesions Procedure(s) Performed exp lap lyses of adhesion closure small bowel enterotomy Surgeon Dr Cameron Residential Le[employer] Agent Surgeon(s) Baljeet Bob PA-C Estimated Blood Loss 30cc Findings distal jejunum adhesion to left lower quadrant causing near complete obstruction , enterotomy near to obstructing bands Specimens Culture #1 urine catheed for culture and sensitivity Drains 1/4 inch lise sub cut I attest to the content of the Intraoperative Record and any orders documented therein. Any exceptions are noted below.
[2017-02-11] MEDS: FENTANYL CITRATE INJ 50 MCG/1 ML 2 ML VIAL IV PRN ×4 (11:52→12:22)
[2017-02-11] MEDS ORDERED: DILTIAZEM BOLUS / DRIP IV STA (12:02)
[2017-02-11] MEDS ORDERED: DILTIAZEM HCL INJ 125 MG in DEXTROSE 5% 100ML IV PRN (12:15)
[2017-02-11] MEDS ORDERED: DILTIAZEM HCL IV ONE (12:15)
--- NOTE | 2017-02-11 12:23 | Hospitalist Progress Note ---
Hospitalist Progress Note Date of Service Feb 11, 2017. (Melba Martin ., PA-C) Subjective Pt evaluation today including: conversation w/ patient, conversation w/ family (Son- at bedside ), physical exam, chart review, lab review, review of studies, review of inpatient medication list Voiding: pond catheter in place Patient states he is feeling OK postop. Oriented x3, a little groggy. NG tube in place- currently NPO except meds. States he has "bad" acid reflux and concerned because he isn't getting his medications- resume Zantac and Protonix Pain is currently present, but well controlled. Patient denies any fever, chills, sweats, lightheadedness, dizziness, vision changes, CP, palpitations, edema, SOB, wheezing, cough, nausea, vomiting, diarrhea, urinary symptoms, melena, numbness/tingling, weakness, muscle/joint pain, anxiety/depression, active bleeding, or new skin discoloration/changes. (Melba Martin ., PA-C) Medications Current Inpatient Medications Medications (Trade) Dose Ordered Sig/Oscar Route Start Time Stop Time Status Last Admin Dose Admin Ioversol (Optiray 320) 125 ml UD PRN IV 02/10/17 12:30 02/14/17 12:29 Ondansetron HCl (Zofran Inj) 4 mg Q6H PRN IV 02/10/17 15:45 03/12/17 15:44 Glucose (Glucose Chew Tab) 4-8 Tablets 4 Tabl... UD PRN PO 02/10/17 15:45 03/12/17 15:44 Dextrose (Dextrose 50% 50ML Syringe) 25-50ML OF 50% DW IV FOR... UD PRN IV 02/10/17 15:45 03/12/17 15:44 Oxycodone HCl (Roxicodone Immediate Rel Tab) 5 mg Q4H PRN PO 02/10/17 15:45 02/24/17 15:44 Glucose (Glucose 40% Gel) 15-30 GRAMS 15 GRAMS... UD PRN PO 02/10/17 16:15 03/12/17 16:14 Glucagon (Glucagon Inj) 1 mg UD PRN SQ 02/10/17 16:15 03/12/17 16:14 Insulin Aspart (novoLOG ASPART) SLIDING SCALE If C... Q6 SC 02/10/17 18:00 03/12/17 17:59 02/11/17 05:41 1 UNITS Metoprolol Tartrate (Lopressor Tab) 25 mg BID PO 02/10/17 21:00 03/12/17 20:59 02/11/17 09:25 25 MG Hydralazine HCl (HydrALAZINE INJ) 10 mg Q4H PRN IV 02/10/17 18:00 03/12/17 17:59 02/10/17 23:47 10 MG Lorazepam 1 mg/ Syringe 1 ml @ 1 mls/min Q8H PRN IV 02/10/17 18:30 03/12/17 18:29 02/10/17 23:47 1 MLS/MIN Fentanyl Citrate (Fentanyl Inj) 50 mcg Q5M PRN IV 02/11/17 11:00 02/11/17 16:00 02/11/17 12:22 50 MCG Hydromorphone HCl (Dilaudid Inj) 0.5 mg Q5M PRN IV 02/11/17 11:00 02/11/17 16:00 Ondansetron HCl (Zofran Inj) 4 mg ONE PRN IV 02/11/17 11:00 02/11/17 16:00 Promethazine HCl 6.25 mg/Sodium Chloride 50.25 ml @ 202 mls/hr ONE PRN IV 02/11/17 11:00 02/11/17 16:00 Ephedrine Sulfate (EpHEDrine SULFATE INJ) 5 mg Q5M PRN IV 02/11/17 11:00 02/11/17 16:00 Atropine Sulfate (Atropine Sulfate 0.1MG/Ml Inj) 0.5 mg Q1M PRN IV 02/11/17 11:00 02/11/17 16:00 Cefoxitin Sodium 2000 mg/Dextrose 60 ml @ 100 mls/hr Q6H IV 02/11/17 19:00 02/12/17 18:59 Hydromorphone HCl (Dilaudid Inj) 1 mg Q1H PRN IV 02/11/17 11:45 02/25/17 11:44 02/11/17 13:43 1 MG Sodium Chloride 1,000 ml @ 150 mls/hr Q6H40M IV 02/11/17 12:00 03/13/17 11:59 02/11/17 13:42 150 MLS/HR Heparin Sodium (Porcine) (Heparin Sq 5000 Unit/0.5ml) 5,000 unit Q12 SQ 02/11/17 21:00 03/13/17 20:59 Diltiazem HCl 125 mg/Dextrose 125 ml @ 0 mls/hr Q0M PRN IV 02/11/17 12:15 02/11/17 17:15 02/11/17 12:26 10 MLS/HR (Melba Martin PA-C) Objective Vital Signs Date Time Temp Pulse Resp B/P (MAP) Pulse Ox O2 Delivery O2 Flow Rate FiO2 02/11/17 08:50 36.8 125 19 132/92 (105) 95 Room Air 02/11/17 07:30 Room Air 02/11/17 04:15 116 02/11/17 03:58 36.7 133 17 124/77 (93) 93 Room Air 02/10/17 23:15 Room Air 02/10/17 22:45 36.6 117 15 164/98 (120) 93 Room Air 02/10/17 20:00 Room Air 02/10/17 16:47 37.1 104 16 148/91 92 Room Air 02/10/17 16:10 90 20 153/95 96 Room Air 02/10/17 14:09 81 17 140/98 99 02/10/17 12:37 87 02/10/17 12:11 36.7 122 20 157/115 97 Room Air (Melba Martin PA-C) Physical Exam General Appearance: no apparent distress, + pertinent finding (OxyMask; NG tube ) Eyes: normal inspection, PERRL ENT: hearing grossly normal Neck: supple Respiratory/Chest: lungs clear, no respiratory distress, no accessory muscle use Cardiovascular: + irregularly irregular (rate controlled ) Abdomen: normal bowel sounds, + tenderness (around incision site), + pertinent finding (ostomy LLQ- no stool present ) Extremities: no pedal edema, no calf tenderness 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: alert, normal mood/affect, oriented x 3 Skin: normal color, warm/dry, no rash (Melba Martin PA-C) Laboratory Results Last 24 Hours Test 02/10/17 12:45 02/10/17 13:30 02/10/17 14:14 02/10/17 18:23 White Blood Count 9.84 K/uL Red Blood Count 5.50 M/uL Hemoglobin 17.5 g/dL Hematocrit 49.5 % Mean Corpuscular Volume 90.0 fL Mean Corpuscular Hemoglobin 31.8 pg Mean Corpuscular Hemoglobin Concent 35.4 g/dl Platelet Count 211 K/uL Mean Platelet Volume 9.8 fL Neutrophils (%) (Auto) 86.1 % Lymphocytes (%) (Auto) 7.2 % Monocytes (%) (Auto) 5.5 % Eosinophils (%) (Auto) 0.4 % Basophils (%) (Auto) 0.3 % Neutrophils # (Auto) 8.47 K/uL Lymphocytes # (Auto) 0.71 K/uL Monocytes # (Auto) 0.54 K/uL Eosinophils # (Auto) 0.04 K/uL Basophils # (Auto) 0.03 K/uL RDW Standard Deviation 42.4 fL RDW Coefficient of Variation 12.9 % Immature Granulocyte % (Auto) 0.5 % Immature Granulocyte # (Auto) 0.05 K/uL Sodium Level 134 mmol/L Potassium Level 4.3 mmol/L Chloride Level 101 mmol/L Carbon Dioxide Level 23 mmol/L Anion Gap 10.0 mmol/L Blood Urea Nitrogen 20 mg/dl Creatinine 1.60 mg/dl Est Creatinine Clear Calc Drug Dose 39.9 ml/min Estimated GFR () 46.8 Estimated GFR (Non- 40.4 BUN/Creatinine Ratio 12.4 Random Glucose 252 mg/dl Calcium Level 9.7 mg/dl Magnesium Level 2.4 mg/dl Total Bilirubin 1.5 mg/dl Direct Bilirubin 0.3 mg/dl Aspartate Amino Transf (AST/SGOT) 19 U/L Alanine Aminotransferase (ALT/SGPT) 26 U/L Alkaline Phosphatase 84 U/L Total Protein 8.1 gm/dl Albumin 4.8 gm/dl Lipase 226 U/L Urine Color YELLOW Urine Appearance CLEAR Urine pH 7.0 Urine Specific [place] 1.023 Urine Protein 1+ Urine Glucose (UA) 3+ Urine Ketones 1+ Urine Occult Blood NEG Urine Nitrite NEG Urine Bilirubin NEG Urine Urobilinogen NEG Urine Leukocyte Esterase NEG Urine WBC (Auto) 0 /hpf Urine RBC (Auto) 0-4 /hpf Urine Hyaline Casts (Auto) 1-5 /lpf Urine Epithelial Cells (Auto) 5-10 /lpf Urine Bacteria (Auto) NEG Bedside Glucose 200 mg/dl 177 mg/dl Test 02/10/17 18:34 02/10/17 23:39 02/11/17 05:37 02/11/17 06:24 Lactic Acid Level 1.2 mmol/L 1.3 mmol/L Bedside Glucose 182 mg/dl 184 mg/dl White Blood Count 9.53 K/uL Red Blood Count 5.18 M/uL Hemoglobin 15.9 g/dL Hematocrit 46.5 % Mean Corpuscular Volume 89.8 fL Mean Corpuscular Hemoglobin 30.7 pg Mean Corpuscular Hemoglobin Concent 34.2 g/dl Platelet Count 188 K/uL Mean Platelet Volume 9.1 fL Neutrophils (%) (Auto) 83.0 % Lymphocytes (%) (Auto) 5.2 % Monocytes (%) (Auto) 11.5 % Eosinophils (%) (Auto) 0.0 % Basophils (%) (Auto) 0.2 % Neutrophils # (Auto) 7.90 K/uL Lymphocytes # (Auto) 0.50 K/uL Monocytes # (Auto) 1.10 K/uL Eosinophils # (Auto) 0.00 K/uL Basophils # (Auto) 0.02 K/uL RDW Standard Deviation 42.7 fL RDW Coefficient of Variation 13.1 % Immature Granulocyte % (Auto) 0.1 % Immature Granulocyte # (Auto) 0.01 K/uL Sodium Level 138 mmol/L Potassium Level 4.4 mmol/L Chloride Level 107 mmol/L Carbon Dioxide Level 23 mmol/L Anion Gap 8.0 mmol/L Blood Urea Nitrogen 17 mg/dl Creatinine 1.20 mg/dl Est Creatinine Clear Calc Drug Dose 53.1 ml/min Estimated GFR () 66.3 Estimated GFR (Non- 57.2 BUN/Creatinine Ratio 13.8 Random Glucose 206 mg/dl Calcium Level 8.8 mg/dl Test 02/11/17 08:44 Prothrombin Time 11.9 SECONDS Prothromb Time International Ratio 1.1 Activated Partial Thromboplast Time 32.3 SECONDS Partial Thromboplastin Ratio 1.2 (Melba Martin, SENAITC) Assessment and Plan This is a 81-year-old male with past medical history of hypertension, A. fib on' s around toe, hyperlipidemia, diabetes mellitus type 2, colon cancer status post resection and colostomy placement, remote smoking history of type tobacco approximately 30 yrs ago x 20 years who presents to the ER with complaints of severe abdominal pain which started at 0500 today. Small bowel obstruction s/p colon mass resection and ostomy placement in 1978: - Admit to med/surg -- Transferred to tele postop for cardiac monitoring - NPO except meds prior to procedure and treated w/ IV NSS at 80mL/hr- advance diet per GI recommendations - NG tube placed at admission - Consulted General surgery, Dr. Verdin -- exp lap lyses of adhesion closure small bowel enterotomy on 02/11 - IV Cefoxitin - IV Dilaudid and Fentanyl PRN for pain control, Oxycodone PRN - 1 mg IV Ativan PRN anxiety Hypertension: - Held Losartan 100 mg daily and Metoprolol succinate 100 mg daily due to NPO- resume once tolerating PO intake - IV Hydralazine 10 mg q6 hrs PRN hypertension A. fib w/ RVR postop: - Held Xarelto for surgical intervention- resume SHANTELL once OK from surgical standpoint - IV Lopressor q4 hrs PRN for HR > 120 - Cardizem gtt started by surgical team CKD, stage III- STABLE: T2DM, ha1c 7.2%: - Held Glipizide 5 mg daily - Insulin sliding scale with Accu-Cheks ACHS Hyperlipidemia: Continue Simvastatin 40 mg HS GERD: Zantac 150 mg HS and Protonix 40 mg daily- resume Prilosec at discharge DVT Prophylaxis: TEDs/SCDs, Heparin SQ- added by surgical team Code Status: LEVEL V, DNR Disposition: From home, lives w/ - social worker health services consulted - PT/OT pending (Melba Martin, NANCI) I personally examined pt and verified all [place] points w Debbi Martin PA-C only real complaint is incisional pain and notes thathe's feeling a lot better than he was before. no cp no sob. notes he's been told that he has afib but otherwise his heart is strong. relates taht he stays active with golf and gardening, and feels he's doing well for his age all other ROS otherwise negative except for as above vitals noted nad mucous membranes dry, afib w sl tachycardia no distress no accessory muscles no tachypnea afib / RVR - dilt gtt, can augment with amiodarone if rates still uncontrolled as drip gets titrated up; fortunately no sx. likely was provoked by pain/ dehydration from SBO SBO - post op dehydration - ongoing IVF DVT proph - heparin SQ (Jay Riddle D.O.)
--- NOTE | 2017-02-11 13:29 | Anesthesiology Progress Note ---
Anesthesia Post Op Note Date & Time Feb 11, 2017 at 13:27 Vital Signs Pain Intensity: 5 Vital Signs Past 12 Hours Date Time Temp Pulse Resp B/P (MAP) Pulse Ox O2 Delivery O2 Flow Rate FiO2 02/11/17 13:06 37.0 02/11/17 13:04 94 16 92 02/11/17 13:04 91 16 02/11/17 13:01 115/73 02/11/17 12:59 90 17 02/11/17 12:59 93 17 93 02/11/17 12:58 96 18 93 02/11/17 12:58 100 18 02/11/17 12:56 109/75 02/11/17 12:53 88 16 93 02/11/17 12:53 94 16 02/11/17 12:51 114/70 02/11/17 12:48 91 16 93 02/11/17 12:48 92 16 02/11/17 12:47 87 16 93 02/11/17 12:47 90 16 02/11/17 12:46 119/73 02/11/17 12:42 90 20 93 02/11/17 12:42 92 20 02/11/17 12:41 111/70 02/11/17 12:37 97 19 02/11/17 12:37 95 19 91 02/11/17 12:36 113/79 02/11/17 12:32 110 15 94 02/11/17 12:32 110 15 02/11/17 12:31 91/69 02/11/17 12:30 111 16 02/11/17 12:30 107 16 94 02/11/17 12:26 89/69 02/11/17 12:25 109 18 94 02/11/17 12:25 103 18 02/11/17 12:21 122/86 02/11/17 12:20 126 22 95 02/11/17 12:20 122 22 02/11/17 12:16 126/82 02/11/17 12:15 122 24 02/11/17 12:15 134 24 97 02/11/17 12:11 109/87 02/11/17 12:10 127 22 02/11/17 12:10 128 22 97 02/11/17 12:06 145/83 02/11/17 12:05 114 19 98 02/11/17 12:05 119 19 02/11/17 12:01 151/96 02/11/17 12:00 114 21 02/11/17 12:00 102 21 96 02/11/17 11:56 157/107 02/11/17 11:55 126 22 95 02/11/17 11:55 124 22 02/11/17 11:52 145/105 02/11/17 11:50 123 21 96 02/11/17 11:50 119 21 02/11/17 11:47 150/94 02/11/17 11:45 113 21 99 02/11/17 11:45 110 21 02/11/17 11:40 129 23 02/11/17 11:40 37.0 151/118 95 Mask 10 02/11/17 11:40 121 23 151/118 96 02/11/17 08:50 36.8 125 19 132/92 (105) 95 Room Air 02/11/17 07:30 Room Air 02/11/17 04:15 116 02/11/17 03:58 36.7 133 17 124/77 (93) 93 Room Air Notes Mental Status: alert / awake / arousable, participated in evaluation Pt Amnestic to Procedure: Yes Nausea / Vomiting: adequately controlled Pain: adequately controlled Airway Patency, RR, SpO2: stable & adequate BP & HR: stable & adequate Hydration State: stable & adequate Anesthetic Complications: no major complications apparent Patient was in rapid AFib overnight with [id number]. Metorpolol may have been ineffective as given po. Rate controlled prior to induction with esmolol in the OR, and on wakeup the patient was still tachycardic, asymptomatic, with normal to high BP. A drip of cardizem was started and the patient was rate controlled to a rate of approximately 90. I have spoken with the hospitalist who will manage the patient, and have made arrangements for the patient to go to telemetry floor for continued rate management.
[2017-02-11] MEDS: HYDROmorphone INJ 1 MG/ML SYR IV PRN ×3 (13:43→19:58)
[2017-02-11] MEDS ORDERED: NURSING VERBAL MED ORDER ONE (18:30)
[2017-02-11] MEDS: CEFOXITIN IV 2,000 MG in DEXTROSE 5% 50ML 50 ML IV SCH (18:46)
[2017-02-11] MEDS: HEPARIN SOD 5000 UNIT/0.5 ML CARP SQ SCH (21:19)
[2017-02-11] MEDS: DILTIAZEM HCL INJ 125 MG in DEXTROSE 5% 100ML IV PRN (21:20)
[2017-02-11] MEDS: LORAZEPAM 2 MG/ML 1 ML VIAL IV PRN (21:55)
[2017-02-12] VITALS (7 sets, daily range): BP systolic 100–149; BP diastolic 61–84; PULSE 73–98; TEMP 36.4–37.2; O2SAT 92–93
[2017-02-12] MEDS: CEFOXITIN IV 2,000 MG in DEXTROSE 5% 50ML 50 ML IV SCH ×4 (00:06→13:19)
[2017-02-12] MEDS: SODIUM CHLORIDE 0.9% 1000ML 1,000 ML IV SCH ×4 (01:32→21:22)
[2017-02-12] MEDS: DILTIAZEM HCL INJ 125 MG in DEXTROSE 5% 100ML IV PRN (05:22)
[2017-02-12] MEDS: INSULIN ASPART 100 UNITS/ML 3 ML PEN SC SCH ×4 (06:12→23:45)
[2017-02-12 06:16] LABS: COMPLETE YES; HEMATOCRIT 39.2 % (42-52); IG% 0.2 %; LYMPH ABS # 0.46 K/uL (1.2-3.4); MEAN CELL VOLUME 92.5 fL (80-100); MEAN CORPUSCULAR HEMOGLOBIN 31.4 pg (25-34); MEAN CORPUSCULAR HGB CONC 33.9 g/dl (32-36); MEAN PLATELET VOLUME 9.6 fL (7.4-10.4); MONO % 22.4 %; NEUT % 66.4 %; PLATELET COUNT 186 K/uL (130-400); RED BLOOD COUNT 4.24 M/uL (4.7-6.1); WHITE BLOOD COUNT 4.19 K/uL (4.8-10.8)
[2017-02-12 06:20] LABS: BUN/CREATININE RATIO 13.7 (10-20); CALCIUM 7.9 mg/dl (8.5-10.1); CREATININE 1.7 mg/dl (0.60-1.40); POTASSIUM 4.2 mmol/L (3.5-5.1)
--- NOTE | 2017-02-12 07:42 | Surgery Progress Note ---
Surgery Progress Note Date of Service Feb 12, 2017. Subjective Post OP Day: 1 + pain controlled, No flatus, No nausea NG dislodged last night Objective Vital Signs: Date Time Temp Pulse Resp B/P (MAP) Pulse Ox O2 Delivery O2 Flow Rate FiO2 02/12/17 07:30 36.4 85 18 100/61 (74) 93 2.0 02/12/17 04:00 Nasal Cannula 2.0 02/12/17 03:57 37.2 92 22 112/72 (85) 93 Nasal Cannula 2.0 02/12/17 00:00 Nasal Cannula 2.0 02/11/17 23:50 37.1 95 22 102/64 (77) 93 Nasal Cannula 2.0 02/11/17 20:00 Nasal Cannula 2.0 02/11/17 18:56 37.3 98 26 123/76 (92) 91 Nasal Cannula 2.0 02/11/17 16:00 Nasal Cannula 2.0 02/11/17 15:34 36.5 117 20 132/79 (96) 95 Nasal Cannula 4.0 02/11/17 14:04 36.5 107 16 118/75 (89) 96 Oxymask 4.0 02/11/17 13:42 36.4 90 20 134/79 (97) 95 Nasal Cannula 4.0 02/11/17 13:06 37.0 02/11/17 13:04 94 16 92 02/11/17 13:04 91 16 02/11/17 13:01 115/73 02/11/17 12:59 90 17 02/11/17 12:59 93 17 93 02/11/17 12:58 96 18 93 02/11/17 12:58 100 18 02/11/17 12:56 109/75 02/11/17 12:53 88 16 93 02/11/17 12:53 94 16 02/11/17 12:51 114/70 02/11/17 12:48 91 16 93 02/11/17 12:48 92 16 02/11/17 12:47 87 16 93 02/11/17 12:47 90 16 02/11/17 12:46 119/73 02/11/17 12:42 90 20 93 02/11/17 12:42 92 20 02/11/17 12:41 111/70 02/11/17 12:37 97 19 02/11/17 12:37 95 19 91 02/11/17 12:36 113/79 02/11/17 12:32 110 15 94 02/11/17 12:32 110 15 02/11/17 12:31 91/69 02/11/17 12:30 111 16 02/11/17 12:30 107 16 94 02/11/17 12:26 89/69 02/11/17 12:25 109 18 94 02/11/17 12:25 103 18 02/11/17 12:21 122/86 02/11/17 12:20 126 22 95 02/11/17 12:20 122 22 02/11/17 12:16 126/82 02/11/17 12:15 122 24 02/11/17 12:15 134 24 97 02/11/17 12:11 109/87 02/11/17 12:10 127 22 02/11/17 12:10 128 22 97 02/11/17 12:06 145/83 02/11/17 12:05 114 19 98 02/11/17 12:05 119 19 02/11/17 12:01 151/96 02/11/17 12:00 114 21 02/11/17 12:00 102 21 96 02/11/17 11:56 157/107 02/11/17 11:55 126 22 95 02/11/17 11:55 124 22 02/11/17 11:52 145/105 02/11/17 11:50 123 21 96 02/11/17 11:50 119 21 02/11/17 11:47 150/94 02/11/17 11:45 113 21 99 02/11/17 11:45 110 21 02/11/17 11:40 129 23 02/11/17 11:40 37.0 151/118 95 Mask 10 02/11/17 11:40 121 23 151/118 96 02/11/17 08:50 36.8 125 19 132/92 (105) 95 Room Air Abdomen: soft, + distended (less) Incision(s): drainage (minimal lower lise area) Laboratory Results: Results Past 24 Hours Test 02/11/17 08:44 02/11/17 12:29 02/11/17 18:38 02/11/17 23:32 Range/Units Prothrombin Time 11.9 9.0-12.0 SECONDS Prothromb Time International Ratio 1.1 0.9-1.1 Activated Partial Thromboplast Time 32.3 21.0-31.0 SECONDS Partial Thromboplastin Ratio 1.2 Bedside Glucose 187 217 239 70-99 mg/dl Test 02/12/17 05:29 02/12/17 06:04 Range/Units White Blood Count 4.19 4.8-10.8 K/uL Red Blood Count 4.24 4.7-6.1 M/uL Hemoglobin 13.3 14.0-18.0 g/dL Hematocrit 39.2 42-52 % Mean Corpuscular Volume 92.5 80-100 fL Mean Corpuscular Hemoglobin 31.4 25-34 pg Mean Corpuscular Hemoglobin Concent 33.9 32-36 g/dl Platelet Count 186 130-400 K/uL Mean Platelet Volume 9.6 7.4-10.4 fL Neutrophils (%) (Auto) 66.4 % Lymphocytes (%) (Auto) 11.0 % Monocytes (%) (Auto) 22.4 % Eosinophils (%) (Auto) 0.0 % Basophils (%) (Auto) 0.0 % Neutrophils # (Auto) 2.78 1.4-6.5 K/uL Lymphocytes # (Auto) 0.46 1.2-3.4 K/uL Monocytes # (Auto) 0.94 0.11-0.59 K/uL Eosinophils # (Auto) 0.00 0-0.5 K/uL Basophils # (Auto) 0.00 0-0.2 K/uL RDW Standard Deviation 45.3 36.4-46.3 fL RDW Coefficient of Variation 13.5 11.5-14.5 % Immature Granulocyte % (Auto) 0.2 % Immature Granulocyte # (Auto) 0.01 0.00-0.02 K/uL Red Blood Cell Morphology Unremarkable Sodium Level 138 136-145 mmol/L Potassium Level 4.2 3.5-5.1 mmol/L Chloride Level 106 98-107 mmol/L Carbon Dioxide Level 23 21-32 mmol/L Anion Gap 9.0 3-11 mmol/L Blood Urea Nitrogen 23 7-18 mg/dl Creatinine 1.70 0.60-1.40 mg/dl Est Creatinine Clear Calc Drug Dose 40.7 ml/min Estimated GFR () 43.5 Estimated GFR (Non- 37.5 BUN/Creatinine Ratio 13.7 10-20 Random Glucose 232 70-99 mg/dl Calcium Level 7.9 8.5-10.1 mg/dl Bedside Glucose 211 70-99 mg/dl Microbiology Results 02/11/17 Urine Culture, Received Pending Assessment & Plan s/p ex lap, lysis of adhesions for SBO ok to leave NG out can have ice/sips ambulate HR controlled UOP marginal, Creatine up this AM, IVF at 165 total (150 NSS +15 cardizem), will monitor on Protonix, subQ heparin
[2017-02-12] MEDS: PANTOprazole SOD 40 MG TAB PO SCH (08:33)
[2017-02-12] MEDS: RANITIDINE HCL 150 MG TAB PO SCH (08:33)
[2017-02-12] MEDS: METOPROLOL TARTRATE 25 MG TAB PO SCH ×2 (08:33→21:17)
[2017-02-12] MEDS: HEPARIN SOD 5000 UNIT/0.5 ML CARP SQ SCH ×2 (08:34→21:18)
[2017-02-12] MEDS: HYDROmorphone INJ 1 MG/ML SYR IV PRN ×3 (09:42→21:42)
[2017-02-12] MEDS ORDERED: METOPROLOL TARTRATE 1 MG/ML VIAL IV PRN (11:00)
--- NOTE | 2017-02-12 11:06 | Hospitalist Progress Note ---
Hospitalist Progress Note Date of Service Feb 12, 2017. (Melba Martin ., PA-C) Subjective Pt evaluation today including: conversation w/ patient, physical exam, chart review, lab review, review of inpatient medication list Voiding: pond catheter in place (draining concentrated yellow urine ) Patient states he is feeling well. Abdominal pain around incision site is well controlled. Admits to grogginess- attributes to pain medications. Currently NPO except meds- tolerating PO medications. Request d/c of Pond- surgery would like to continue Pond throughout today due to little UO Patient denies any fever, chills, sweats, lightheadedness, dizziness, vision changes, CP, palpitations, edema, SOB, wheezing, cough, nausea, vomiting, diarrhea, urinary symptoms, melena, numbness/tingling, weakness, muscle/joint pain, anxiety/depression, active bleeding, or new skin discoloration/changes. (Melba Martin ., PA-C) Medications Current Inpatient Medications Medications (Trade) Dose Ordered Sig/Oscar Route Start Time Stop Time Status Last Admin Dose Admin Ioversol (Optiray 320) 125 ml UD PRN IV 02/10/17 12:30 02/14/17 12:29 Ondansetron HCl (Zofran Inj) 4 mg Q6H PRN IV 02/10/17 15:45 03/12/17 15:44 Glucose (Glucose Chew Tab) 4-8 Tablets 4 Tabl... UD PRN PO 02/10/17 15:45 03/12/17 15:44 Dextrose (Dextrose 50% 50ML Syringe) 25-50ML OF 50% DW IV FOR... UD PRN IV 02/10/17 15:45 03/12/17 15:44 Oxycodone HCl (Roxicodone Immediate Rel Tab) 5 mg Q4H PRN PO 02/10/17 15:45 02/24/17 15:44 Glucose (Glucose 40% Gel) 15-30 GRAMS 15 GRAMS... UD PRN PO 02/10/17 16:15 03/12/17 16:14 Glucagon (Glucagon Inj) 1 mg UD PRN SQ 02/10/17 16:15 03/12/17 16:14 Insulin Aspart (novoLOG ASPART) SLIDING SCALE If C... Q6 SC 02/10/17 18:00 03/12/17 17:59 02/12/17 06:12 2 UNITS Metoprolol Tartrate (Lopressor Tab) 25 mg BID PO 02/10/17 21:00 03/12/17 20:59 02/12/17 08:33 25 MG Hydralazine HCl (HydrALAZINE INJ) 10 mg Q4H PRN IV 02/10/17 18:00 03/12/17 17:59 02/10/17 23:47 10 MG Lorazepam 1 mg/ Syringe 1 ml @ 1 mls/min Q8H PRN IV 02/10/17 18:30 03/12/17 18:29 02/10/17 23:47 1 MLS/MIN Cefoxitin Sodium 2000 mg/Dextrose 60 ml @ 100 mls/hr Q6H IV 02/11/17 19:00 02/12/17 18:59 02/12/17 06:16 100 MLS/HR Hydromorphone HCl (Dilaudid Inj) 1 mg Q1H PRN IV 02/11/17 11:45 02/25/17 11:44 02/12/17 09:42 1 MG Sodium Chloride 1,000 ml @ 150 mls/hr Q6H40M IV 02/11/17 12:00 03/13/17 11:59 02/12/17 08:36 150 MLS/HR Heparin Sodium (Porcine) (Heparin Sq 5000 Unit/0.5ml) 5,000 unit Q12 SQ 02/11/17 21:00 03/13/17 20:59 02/12/17 08:34 5,000 UNIT Ranitidine HCl (zANTac TAB) 150 mg QAM PO 02/12/17 09:00 03/14/17 08:59 02/12/17 08:33 150 MG Pantoprazole Sodium (Protonix Tab) 40 mg QAM PO 02/12/17 09:00 03/14/17 08:59 02/12/17 08:33 40 MG Diltiazem HCl 125 mg/Dextrose 125 ml @ 10 mls/hr [id number] PRN IV 02/11/17 18:45 03/13/17 18:44 02/12/17 05:22 15 MLS/HR Lorazepam (Ativan Inj) 1 mg Q8H PRN IV 02/11/17 21:45 03/13/17 21:44 02/11/17 21:55 1 MG (Melba Martin, NANCI) Objective Vital Signs Date Time Temp Pulse Resp B/P (MAP) Pulse Ox O2 Delivery O2 Flow Rate FiO2 02/12/17 07:30 36.4 85 18 100/61 (74) 93 2.0 02/12/17 04:00 Nasal Cannula 2.0 02/12/17 03:57 37.2 92 22 112/72 (85) 93 Nasal Cannula 2.0 02/12/17 00:00 Nasal Cannula 2.0 02/11/17 23:50 37.1 95 22 102/64 (77) 93 Nasal Cannula 2.0 02/11/17 20:00 Nasal Cannula 2.0 02/11/17 18:56 37.3 98 26 123/76 (92) 91 Nasal Cannula 2.0 02/11/17 16:00 Nasal Cannula 2.0 02/11/17 15:34 36.5 117 20 132/79 (96) 95 Nasal Cannula 4.0 02/11/17 14:04 36.5 107 16 118/75 (89) 96 Oxymask 4.0 02/11/17 13:42 36.4 90 20 134/79 (97) 95 Nasal Cannula 4.0 02/11/17 13:06 37.0 02/11/17 13:04 94 16 92 02/11/17 13:04 91 16 02/11/17 13:01 115/73 02/11/17 12:59 90 17 02/11/17 12:59 93 17 93 02/11/17 12:58 96 18 93 02/11/17 12:58 100 18 02/11/17 12:56 109/75 02/11/17 12:53 88 16 93 02/11/17 12:53 94 16 02/11/17 12:51 114/70 02/11/17 12:48 91 16 93 02/11/17 12:48 92 16 02/11/17 12:47 87 16 93 02/11/17 12:47 90 16 02/11/17 12:46 119/73 02/11/17 12:42 90 20 93 02/11/17 12:42 92 20 02/11/17 12:41 111/70 02/11/17 12:37 97 19 02/11/17 12:37 95 19 91 02/11/17 12:36 113/79 02/11/17 12:32 110 15 94 02/11/17 12:32 110 15 02/11/17 12:31 91/69 02/11/17 12:30 111 16 02/11/17 12:30 107 16 94 02/11/17 12:26 89/69 02/11/17 12:25 109 18 94 02/11/17 12:25 103 18 02/11/17 12:21 122/86 02/11/17 12:20 126 22 95 02/11/17 12:20 122 22 02/11/17 12:16 126/82 02/11/17 12:15 122 24 02/11/17 12:15 134 24 97 02/11/17 12:11 109/87 02/11/17 12:10 127 22 02/11/17 12:10 128 22 97 02/11/17 12:06 145/83 02/11/17 12:05 114 19 98 02/11/17 12:05 119 19 02/11/17 12:01 151/96 02/11/17 12:00 114 21 02/11/17 12:00 102 21 96 02/11/17 11:56 157/107 02/11/17 11:55 126 22 95 02/11/17 11:55 124 22 02/11/17 11:52 145/105 02/11/17 11:50 123 21 96 02/11/17 11:50 119 21 02/11/17 11:47 150/94 02/11/17 11:45 113 21 99 02/11/17 11:45 110 21 02/11/17 11:40 129 23 02/11/17 11:40 37.0 151/118 95 Mask 10 02/11/17 11:40 121 23 151/118 96 (Melba Martin, SENAITC) Physical Exam General Appearance: no apparent distress, + pertinent finding (02 2L NC ) Eyes: normal inspection, PERRL ENT: hearing grossly normal Neck: supple Respiratory/Chest: lungs clear, no respiratory distress, no accessory muscle use, + pertinent finding (poor inspiratory effort ) Cardiovascular: + irregularly irregular (rate controlled ) Abdomen: normal bowel sounds, + tenderness (around incision site ), + pertinent finding (LLQ ostomy ) Extremities: no pedal edema, no calf tenderness 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: alert, normal mood/affect, oriented x 3 Skin: normal color, warm/dry, no rash (Melba Martin .NANCI) Laboratory Results Last 24 Hours Test 02/11/17 12:29 02/11/17 18:38 02/11/17 23:32 02/12/17 05:29 Bedside Glucose 187 mg/dl 217 mg/dl 239 mg/dl White Blood Count 4.19 K/uL Red Blood Count 4.24 M/uL Hemoglobin 13.3 g/dL Hematocrit 39.2 % Mean Corpuscular Volume 92.5 fL Mean Corpuscular Hemoglobin 31.4 pg Mean Corpuscular Hemoglobin Concent 33.9 g/dl Platelet Count 186 K/uL Mean Platelet Volume 9.6 fL Neutrophils (%) (Auto) 66.4 % Lymphocytes (%) (Auto) 11.0 % Monocytes (%) (Auto) 22.4 % Eosinophils (%) (Auto) 0.0 % Basophils (%) (Auto) 0.0 % Neutrophils # (Auto) 2.78 K/uL Lymphocytes # (Auto) 0.46 K/uL Monocytes # (Auto) 0.94 K/uL Eosinophils # (Auto) 0.00 K/uL Basophils # (Auto) 0.00 K/uL RDW Standard Deviation 45.3 fL RDW Coefficient of Variation 13.5 % Immature Granulocyte % (Auto) 0.2 % Immature Granulocyte # (Auto) 0.01 K/uL Red Blood Cell Morphology Unremarkable Sodium Level 138 mmol/L Potassium Level 4.2 mmol/L Chloride Level 106 mmol/L Carbon Dioxide Level 23 mmol/L Anion Gap 9.0 mmol/L Blood Urea Nitrogen 23 mg/dl Creatinine 1.70 mg/dl Est Creatinine Clear Calc Drug Dose 40.7 ml/min Estimated GFR () 43.5 Estimated GFR (Non- 37.5 BUN/Creatinine Ratio 13.7 Random Glucose 232 mg/dl Calcium Level 7.9 mg/dl Test 02/12/17 06:04 Bedside Glucose 211 mg/dl (Melba Martin PA-C) Assessment and Plan This is a 81-year-old male with past medical history of hypertension, A. fib on' s around toe, hyperlipidemia, diabetes mellitus type 2, colon cancer status post resection and colostomy placement, remote smoking history of type tobacco approximately 30 yrs ago x 20 years who presents to the ER with complaints of severe abdominal pain which started at 0500 today. Small bowel obstruction s/p colon mass resection and ostomy placement in 1978; s /p exp lap lyses of adhesion closure small bowel enterotomy on 02/11: - Admit to med/surg -- Transferred to tele postop due to a.fib w/ RVR postop- rate controlled overnight - NPO except meds prior to procedure and treated w/ IV NSS at 80mL/hr- advance diet per GI recommendations - NG tube placed at admission- pt pulled out overnight on 02/12, no complaints - IV Dilaudid and Fentanyl PRN for pain control, Oxycodone PRN -- Try to limit IV Dilaudid and use PO medications - 1 mg IV Ativan PRN anxiety - O2 protocol, wean as tolerated -- Poor inspiratory effort on exam; encouraged incentive spirometer - Follow CBC- H&H STABLE - General surgery consulted, appreciate recommendations -- Surgical management -- IV Cefoxitin per surgery Hypertension- CONTROLLED: - Held Losartan 100 mg daily at admission due to NPO status - IV Hydralazine 10 mg q6 hrs PRN hypertension A. fib w/ RVR postop- rate now controlled: - Xarelto 20 mg daily to be resumed on 02/13 per surgical team - IV Lopressor q4 hrs PRN for HR > 120 w/ hold parameters - Cardizem gtt started by surgical team -- Rate has been controlled overnight; tolerating Metoprolol 25 mg BID- will hold gtt and watch rate w/ PO medications NICOLLE on CKD, stage III: - Continue IVF - Hold nephrotoxic agents - Follow PRP T2DM, ha1c 7.2%: - Held Glipizide 5 mg daily - Insulin sliding scale with Accu-Cheks ACHS - Currently hyperglycemic while NPO, but acceptable- will likely need to start Lantus once tolerating PO intake Hyperlipidemia: Simvastatin 40 mg HS GERD: Zantac 150 mg HS and Protonix 40 mg daily- resume Prilosec at discharge DVT Prophylaxis: TEDs/SCDs, Heparin SQ- added by surgical team Code Status: LEVEL V, DNR Disposition: From home, lives w/ - social work faculty member consulted - PT/OT pending - Holding Cardizem gtt- if remains rate controlled this afternoon on PO medications, will transfer to med/surg (Melba Martin ., NANCI) I personally examined pt and verified all [place] mala Martin PA-C feeling pretty good overall just some incisional pain, getting out of bed OK thinks could void alright. no afib sx. rate controlled. vitals noted nad breathing unlabored no pallor or icterus SBO - now post op. pain controlled, diet advance by surgery afib - rate now controlled on PO meds. stable for med surg low UO - follow I&O but suspect all just relates to SBO and dehydration - continue IVF, Cr did bump a little corroborating this NICOLLE - IVFs DVT proph - resuming xarelto (Jay Riddle D.Araseli.)
[2017-02-12] MEDS ORDERED: SODIUM CHLORIDE 0.9% 500ML 500 ML IV SCH ×2 (11:45→12:45)
--- NOTE | 2017-02-12 11:45 | Progress Note ---
Progress Note Date of Service Feb 12, 2017. Progress Note Urine continues to be marginal (125 cc past 5 hours) will continue pond for today and give 500 cc NSS bolus can restart Xarelto tomorrow ambulate prn dressing changes seen with Dr. Cameron
[2017-02-12] MEDS ORDERED: NURSING VERBAL MED ORDER ONE (22:45)
[2017-02-12] MEDS ORDERED: SODIUM CHLORIDE 0.9% 500ML 500 ML IV ONE (23:00)
[2017-02-12 23:20] LABS: BUN/CREATININE RATIO 18.5 (10-20); CALCIUM 8.3 mg/dl (8.5-10.1); CREATININE 1.3 mg/dl (0.60-1.40); MAGNESIUM 2.1 mg/dl (1.8-2.4); POTASSIUM 4.2 mmol/L (3.5-5.1)
[2017-02-13] MEDS: LORAZEPAM INJ 1 MG in SYRINGE 0.5 ML IV PRN (00:34)
[2017-02-13] MEDS: ONDANSETRON INJ 2 MG/ML 2 ML VIAL IV PRN ×2 (02:07→15:34)
[2017-02-13 03:10] VITALS: BP 155/76; PULSE 110; O2SAT 91
[2017-02-13] MEDS: HYDROmorphone INJ 1 MG/ML SYR IV PRN ×4 (03:11→22:17)
[2017-02-13] MEDS ORDERED: NURSING VERBAL MED ORDER ONE (03:30)
[2017-02-13] MEDS ORDERED: CALCIUM CARBONATE 500 MG CHEWABLE PO PRN (03:45)
[2017-02-13] MEDS: RANITIDINE HCL 150 MG TAB PO SCH (03:55)
[2017-02-13] MEDS: SODIUM CHLORIDE 0.9% 1000ML 1,000 ML IV SCH ×3 (03:57→17:40)
[2017-02-13] MEDS: INSULIN ASPART 100 UNITS/ML 3 ML PEN SC SCH ×4 (06:00→23:56)
[2017-02-13 06:24] VITALS: PULSE 104
[2017-02-13 06:43] VITALS: BP 150/92; PULSE 112; TEMP 36.9; O2SAT 94
[2017-02-13 07:19] LABS: HEMATOCRIT 40.6 % (42-52); MEAN CELL VOLUME 93.5 fL (80-100); MEAN CORPUSCULAR HEMOGLOBIN 30.2 pg (25-34); MEAN CORPUSCULAR HGB CONC 32.3 g/dl (32-36); MEAN PLATELET VOLUME 9.7 fL (7.4-10.4); PLATELET COUNT 206 K/uL (130-400); RED BLOOD COUNT 4.34 M/uL (4.7-6.1); WHITE BLOOD COUNT 4.51 K/uL (4.8-10.8)
[2017-02-13] MEDS: PANTOprazole SOD 40 MG TAB PO SCH (07:50)
[2017-02-13 08:19] LABS: BASO % 0.2 %; BASO ABS # 0.01 K/uL (0-0.2); COMPLETE YES; EOS % 0.2 %; IG% 0.2 %; LYMPH % 14.2 %; LYMPH ABS # 0.64 K/uL (1.2-3.4); MONO % 23.7 %; NEUT % 61.5 %
[2017-02-13] MEDS ORDERED: RIVAROXABAN 20 MG TAB PO SCH (09:00)
[2017-02-13] MEDS ORDERED: ALUMINUM/MAGNESIUM SUSP 30 ML UDC PO STA (09:47)
--- NOTE | 2017-02-13 09:55 | Surgery Progress Note ---
Surgery Progress Note Date of Service Feb 13, 2017. Subjective Post OP Day: 2 + nausea, No bowel movement (no colostomy output as yet), No vomiting Objective Vital Signs: Date Time Temp Pulse Resp B/P (MAP) Pulse Ox O2 Delivery O2 Flow Rate FiO2 02/13/17 06:43 36.9 112 21 150/92 (111) 94 Room Air 02/13/17 06:24 104 02/13/17 03:10 110 20 155/76 (102) 91 Nasal Cannula 2.0 02/12/17 23:45 Nasal Cannula 02/12/17 23:07 37.1 98 16 119/82 (94) 93 Nasal Cannula 2.0 02/12/17 21:14 86 149/84 (105) 02/12/17 16:00 92 Nasal Cannula 3.0 02/12/17 16:00 37.2 86 16 122/68 (86) 92 Nasal Cannula 3.0 02/12/17 15:10 36.7 85 22 102/65 (77) 93 Nasal Cannula 3.0 02/12/17 12:00 Nasal Cannula 2.0 02/12/17 11:21 36.6 73 16 100/62 (75) 93 2.0 Abdomen: + abnormal bowel sounds (rare), + distended, + tenderness Incision(s): clean, dry, intact Laboratory Results: Results Past 24 Hours Test 02/12/17 11:14 02/12/17 18:05 02/12/17 22:48 02/12/17 23:33 Range/Units Bedside Glucose 185 151 163 70-99 mg/dl Sodium Level 139 136-145 mmol/L Potassium Level 4.2 3.5-5.1 mmol/L Chloride Level 110 98-107 mmol/L Carbon Dioxide Level 24 21-32 mmol/L Anion Gap 5.0 3-11 mmol/L Blood Urea Nitrogen 24 7-18 mg/dl Creatinine 1.30 0.60-1.40 mg/dl Est Creatinine Clear Calc Drug Dose 53.2 ml/min Estimated GFR () 60.1 Estimated GFR (Non- 51.9 BUN/Creatinine Ratio 18.5 10-20 Random Glucose 149 70-99 mg/dl Calcium Level 8.3 8.5-10.1 mg/dl Magnesium Level 2.1 1.8-2.4 mg/dl Test 02/13/17 06:21 7/1/17 06:31 Range/Units Bedside Glucose 153 70-99 mg/dl White Blood Count 4.51 4.8-10.8 K/uL Red Blood Count 4.34 4.7-6.1 M/uL Hemoglobin 13.1 14.0-18.0 g/dL Hematocrit 40.6 42-52 % Mean Corpuscular Volume 93.5 80-100 fL Mean Corpuscular Hemoglobin 30.2 25-34 pg Mean Corpuscular Hemoglobin Concent 32.3 32-36 g/dl Platelet Count 206 130-400 K/uL Mean Platelet Volume 9.7 7.4-10.4 fL Neutrophils (%) (Auto) 61.5 % Lymphocytes (%) (Auto) 14.2 % Monocytes (%) (Auto) 23.7 % Eosinophils (%) (Auto) 0.2 % Basophils (%) (Auto) 0.2 % Neutrophils # (Auto) 2.77 1.4-6.5 K/uL Lymphocytes # (Auto) 0.64 1.2-3.4 K/uL Monocytes # (Auto) 1.07 0.11-0.59 K/uL Eosinophils # (Auto) 0.01 0-0.5 K/uL Basophils # (Auto) 0.01 0-0.2 K/uL RDW Standard Deviation 46.5 36.4-46.3 fL RDW Coefficient of Variation 13.5 11.5-14.5 % Immature Granulocyte % (Auto) 0.2 % Immature Granulocyte # (Auto) 0.01 0.00-0.02 K/uL Assessment & Plan S/p exploratory laparotomy with RAYMUNDO for SBO Suspect ileus If nausea escalates or vomiting begins will need NGT WBC normal No peritonitis
[2017-02-13] MEDS ORDERED: ALUMINUM/MAGNESIUM SUSP 30 ML UDC PO PRN (10:00)
[2017-02-13] MEDS ORDERED: LIDOCAINE HCL 2% VISC SOLN 20 ML UDC PO PRN (10:00)
[2017-02-13] MEDS ORDERED: LIDOCAINE HCL 2% VISC SOLN 20 ML UDC PO ONE (10:00)
[2017-02-13] MEDS: METOPROLOL TARTRATE 50 MG TAB PO SCH ×2 (10:23→22:06)
[2017-02-13 15:00] VITALS: BP 149/94; PULSE 92; TEMP 36.7; O2SAT 93
--- NOTE | 2017-02-13 15:22 | Progress Note ---
Subjective Date of Service: Feb 13, 2017. Subjective Pt evaluation today including: conversation w/ patient, physical exam, chart review, lab review, conversation w/ principal consultant, review of inpatient medication list hiccups, heartburn. abdomen feels about the same - still some periincisional pain no flatus no bm. abdomen distended. d/w surgery - feels likely ileus - input appreciated. no other complaints HR noted Problem List Medical Problems: (1) Small bowel obstruction Status: Acute Review of Systems all other ROS otherwise negative except for as above Objective Vital Signs Date Time Temp Pulse Resp B/P (MAP) Pulse Ox O2 Delivery O2 Flow Rate FiO2 02/13/17 08:30 Room Air 02/13/17 06:43 36.9 112 21 150/92 (111) 94 Room Air 02/13/17 06:24 104 02/13/17 03:10 110 20 155/76 (102) 91 Nasal Cannula 2.0 02/12/17 23:45 Nasal Cannula 02/12/17 23:07 37.1 98 16 119/82 (94) 93 Nasal Cannula 2.0 02/12/17 21:14 86 149/84 (105) 02/12/17 16:00 92 Nasal Cannula 3.0 02/12/17 16:00 37.2 86 16 122/68 (86) 92 Nasal Cannula 3.0 Physical Exam General Appearance: + pertinent finding (appearing mildly uncomforable hiccuping) Eyes: EOMI ENT: hearing grossly normal Neck: trachea midline Respiratory/Chest: no respiratory distress, no accessory muscle use Abdomen: + pertinent finding (moderately distended, RLQ tenderness, remainder of abdomen distended but not rigid, not diffusely tender no guarding or rebound) Extremities: normal range of motion 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: 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, alert, normal mood/affect Skin: normal color, warm/dry Laboratory Results Last 24 Hours Test 02/12/17 18:05 02/12/17 22:48 02/12/17 23:33 02/13/17 06:21 Bedside Glucose 151 mg/dl 163 mg/dl 153 mg/dl Sodium Level 139 mmol/L Potassium Level 4.2 mmol/L Chloride Level 110 mmol/L Carbon Dioxide Level 24 mmol/L Anion Gap 5.0 mmol/L Blood Urea Nitrogen 24 mg/dl Creatinine 1.30 mg/dl Est Creatinine Clear Calc Drug Dose 53.2 ml/min Estimated GFR () 60.1 Estimated GFR (Non- 51.9 BUN/Creatinine Ratio 18.5 Random Glucose 149 mg/dl Calcium Level 8.3 mg/dl Magnesium Level 2.1 mg/dl Test 02/13/17 06:31 02/13/17 11:54 White Blood Count 4.51 K/uL Red Blood Count 4.34 M/uL Hemoglobin 13.1 g/dL Hematocrit 40.6 % Mean Corpuscular Volume 93.5 fL Mean Corpuscular Hemoglobin 30.2 pg Mean Corpuscular Hemoglobin Concent 32.3 g/dl Platelet Count 206 K/uL Mean Platelet Volume 9.7 fL Neutrophils (%) (Auto) 61.5 % Lymphocytes (%) (Auto) 14.2 % Monocytes (%) (Auto) 23.7 % Eosinophils (%) (Auto) 0.2 % Basophils (%) (Auto) 0.2 % Neutrophils # (Auto) 2.77 K/uL Lymphocytes # (Auto) 0.64 K/uL Monocytes # (Auto) 1.07 K/uL Eosinophils # (Auto) 0.01 K/uL Basophils # (Auto) 0.01 K/uL RDW Standard Deviation 46.5 fL RDW Coefficient of Variation 13.5 % Immature Granulocyte % (Auto) 0.2 % Immature Granulocyte # (Auto) 0.01 K/uL Bedside Glucose 158 mg/dl Assessment and Plan SBO - now post op. appears to have ileus. supportive care, hopefully won't worsen but may need NGT again afib - rate now reasonable on PO meds, will have to follow - if ileus precludes PO intake may have to move back to med/surg low UO - follow I&O but suspect all just relates to SBO and dehydration - continue IVF, Cr did bump a little corroborating this NICOLLE - IVFs - improving DVT proph - due to difficulties with PO w ileus - xarelto still on hold - heparin SQ for now
[2017-02-13 16:30] VITALS: O2SAT 95
[2017-02-13] MEDS: HEPARIN SOD 5000 UNIT/0.5 ML CARP SQ SCH (22:11)
[2017-02-13 22:51] VITALS: BP 148/69; PULSE 93; TEMP 36.3; O2SAT 91
[2017-02-14] MEDS: SODIUM CHLORIDE 0.9% 1000ML 1,000 ML IV SCH ×4 (00:09→20:44)
[2017-02-14] MEDS: HYDROmorphone INJ 1 MG/ML SYR IV PRN ×4 (00:58→20:38)
[2017-02-14] MEDS: INSULIN ASPART 100 UNITS/ML 3 ML PEN SC SCH ×3 (06:07→18:00)
[2017-02-14 06:38] LABS: HEMATOCRIT 38.9 % (42-52); MEAN CELL VOLUME 93.7 fL (80-100); MEAN CORPUSCULAR HEMOGLOBIN 30.8 pg (25-34); MEAN CORPUSCULAR HGB CONC 32.9 g/dl (32-36); MEAN PLATELET VOLUME 9.2 fL (7.4-10.4); PLATELET COUNT 202 K/uL (130-400); RED BLOOD COUNT 4.15 M/uL (4.7-6.1); WHITE BLOOD COUNT 4.81 K/uL (4.8-10.8)
[2017-02-14 06:50] VITALS: BP 151/84; PULSE 82; TEMP 36.5; O2SAT 92
[2017-02-14 07:56] LABS: BUN/CREATININE RATIO 19.5 (10-20); CALCIUM 8.2 mg/dl (8.5-10.1); CREATININE 1.2 mg/dl (0.60-1.40); POTASSIUM 4.2 mmol/L (3.5-5.1)
[2017-02-14] MEDS: LORAZEPAM INJ 1 MG in SYRINGE 0.5 ML IV PRN ×2 (07:57→16:15)
[2017-02-14] MEDS: RANITIDINE HCL 150 MG TAB PO SCH (10:06)
[2017-02-14] MEDS: METOPROLOL TARTRATE 50 MG TAB PO SCH ×2 (10:06→20:40)
[2017-02-14] MEDS: PANTOprazole SOD 40 MG TAB PO SCH (10:06)
[2017-02-14] MEDS: HEPARIN SOD 5000 UNIT/0.5 ML CARP SQ SCH ×2 (10:13→20:43)
--- NOTE | 2017-02-14 10:23 | Surgery Progress Note ---
Surgery Progress Note Date of Service Feb 14, 2017. Subjective Post OP Day: 3 Unchanged Still has hiccups Objective Vital Signs: Date Time Temp Pulse Resp B/P (MAP) Pulse Ox O2 Delivery O2 Flow Rate FiO2 02/14/17 06:50 36.5 82 16 151/84 (106) 92 Room Air 02/13/17 23:15 Room Air 02/13/17 22:51 36.3 93 16 148/69 (95) 91 Room Air 02/13/17 16:30 95 Room Air 02/13/17 15:00 36.7 92 17 149/94 (112) 93 Room Air Abdomen: + abnormal bowel sounds (very few sounds), + distended Laboratory Results: Results Past 24 Hours Test 02/13/17 11:54 02/13/17 18:00 02/13/17 23:47 02/14/17 05:59 Range/Units Bedside Glucose 158 176 155 169 70-99 mg/dl Test 02/14/17 06:12 Range/Units White Blood Count 4.81 4.8-10.8 K/uL Red Blood Count 4.15 4.7-6.1 M/uL Hemoglobin 12.8 14.0-18.0 g/dL Hematocrit 38.9 42-52 % Mean Corpuscular Volume 93.7 80-100 fL Mean Corpuscular Hemoglobin 30.8 25-34 pg Mean Corpuscular Hemoglobin Concent 32.9 32-36 g/dl RDW Standard Deviation 46.5 36.4-46.3 fL RDW Coefficient of Variation 13.4 11.5-14.5 % Platelet Count 202 130-400 K/uL Mean Platelet Volume 9.2 7.4-10.4 fL Sodium Level 141 136-145 mmol/L Potassium Level 4.2 3.5-5.1 mmol/L Chloride Level 108 98-107 mmol/L Carbon Dioxide Level 25 21-32 mmol/L Anion Gap 8.0 3-11 mmol/L Blood Urea Nitrogen 23 7-18 mg/dl Creatinine 1.20 0.60-1.40 mg/dl Est Creatinine Clear Calc Drug Dose 57.7 ml/min Estimated GFR () 66.3 Estimated GFR (Non- 57.2 BUN/Creatinine Ratio 19.5 10-20 Random Glucose 168 70-99 mg/dl Calcium Level 8.2 8.5-10.1 mg/dl Assessment & Plan S/P exploratory laparotomy with RAYMUNDO for SBO Ileus continues If nausea escalates or vomiting begins will need NGT WBC normal No peritonitis
[2017-02-14 16:07] VITALS: BP 161/98; PULSE 97; TEMP 36.8; O2SAT 91
[2017-02-14 16:30] VITALS: O2SAT 91
--- NOTE | 2017-02-14 16:59 | Progress Note ---
Subjective Date of Service: Feb 14, 2017. Subjective Pt evaluation today including: conversation w/ patient, physical exam, chart review, lab review, conversation w/ healthcare management consultant (saw at same time as general surgery), review of inpatient medication list feeling about the same - still distended, still pain, still hiccups, still no flatus or stool in ostomy bag. no other new complaints does note that dilauded and ativan at least make symptoms livable while situation ongoing all other ROS otherwise negative except for as above Problem List Medical Problems: (1) Small bowel obstruction Status: Acute Review of Systems all other ROS otherwise negative except for as above Objective Vital Signs Date Time Temp Pulse Resp B/P (MAP) Pulse Ox O2 Delivery O2 Flow Rate FiO2 02/14/17 16:07 36.8 97 16 161/98 (119) 91 Room Air 02/14/17 08:00 Room Air 02/14/17 06:50 36.5 82 16 151/84 (106) 92 Room Air 02/13/17 23:15 Room Air 02/13/17 22:51 36.3 93 16 148/69 (95) 91 Room Air Physical Exam General Appearance: no apparent distress Eyes: EOMI ENT: hearing grossly normal Neck: trachea midline Respiratory/Chest: no respiratory distress, no accessory muscle use Abdomen: soft, + distended (moderately distended hypoactive bowel sounds no gas or stool in bag, mildly tender mostly periincisional no diffuse tenderness no guarding/rebound/rigidity) 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: 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, alert, normal mood/affect Laboratory Results Last 24 Hours Test 02/13/17 18:00 02/13/17 23:47 02/14/17 05:59 02/14/17 06:12 Bedside Glucose 176 mg/dl 155 mg/dl 169 mg/dl White Blood Count 4.81 K/uL Red Blood Count 4.15 M/uL Hemoglobin 12.8 g/dL Hematocrit 38.9 % Mean Corpuscular Volume 93.7 fL Mean Corpuscular Hemoglobin 30.8 pg Mean Corpuscular Hemoglobin Concent 32.9 g/dl RDW Standard Deviation 46.5 fL RDW Coefficient of Variation 13.4 % Platelet Count 202 K/uL Mean Platelet Volume 9.2 fL Sodium Level 141 mmol/L Potassium Level 4.2 mmol/L Chloride Level 108 mmol/L Carbon Dioxide Level 25 mmol/L Anion Gap 8.0 mmol/L Blood Urea Nitrogen 23 mg/dl Creatinine 1.20 mg/dl Est Creatinine Clear Calc Drug Dose 57.7 ml/min Estimated GFR () 66.3 Estimated GFR (Non- 57.2 BUN/Creatinine Ratio 19.5 Random Glucose 168 mg/dl Calcium Level 8.2 mg/dl Test 02/14/17 11:51 Bedside Glucose 146 mg/dl Assessment and Plan SBO - now post op. appears to have ileus. supportive care, not improving yet. no electrolyte disturbances that appear to be provoking - so almost certainly all just post op ileus. with current meds pain is reasonably controlled. no need for TPN yet, continue to follow afib - rate now reasonable on PO meds, will have to follow - if ileus precludes PO intake of meds may have to move back to med/surg; resume xarelto once clearly not needing any future surgeries low UO - suspect all just relates to SBO and dehydration - continue IVF but can reduce to 100/hr NICOLLE - IVFs - improving creatinine - reduce fluids as above DVT proph - due to difficulties with PO w ileus - xarelto still on hold - heparin SQ for now
[2017-02-14 22:12] VITALS: BP 139/81; PULSE 96; TEMP 37; O2SAT 94
[2017-02-15] MEDS: HYDROmorphone INJ 1 MG/ML SYR IV PRN ×3 (00:23→16:52)
[2017-02-15] MEDS: SODIUM CHLORIDE 0.9% 1000ML 1,000 ML IV SCH ×2 (04:55→15:25)
[2017-02-15] MEDS: INSULIN ASPART 100 UNITS/ML 3 ML PEN SC SCH ×4 (05:51→17:59)
[2017-02-15 05:55] LABS: BUN/CREATININE RATIO 22.1 (10-20); CALCIUM 8.1 mg/dl (8.5-10.1); CREATININE 0.98 mg/dl (0.60-1.40); POTASSIUM 4.3 mmol/L (3.5-5.1)
[2017-02-15] MEDS: LORAZEPAM INJ 1 MG in SYRINGE 0.5 ML IV PRN (05:57)
[2017-02-15 07:16] VITALS: BP 153/99; PULSE 99; TEMP 36.8; O2SAT 95
[2017-02-15] MEDS ORDERED: COUGH DROP (SUGAR FREE) LOZ 24 LOZ/1 BOX PO PRN (07:30)
--- NOTE | 2017-02-15 07:36 | Surgery Progress Note ---
Surgery Progress Note Date of Service Feb 15, 2017. Subjective Post OP Day: 4 singultus for few days had ng tibe post op and pt pulled it out 24 hrs later Objective Vital Signs: Date Time Temp Pulse Resp B/P (MAP) Pulse Ox O2 Delivery O2 Flow Rate FiO2 02/15/17 07:16 36.8 99 17 153/99 (117) 95 Room Air 02/14/17 23:15 Room Air 02/14/17 22:12 37.0 96 16 139/81 (100) 94 Room Air 02/14/17 16:30 91 Room Air 02/14/17 16:07 36.8 97 16 161/98 (119) 91 Room Air 02/14/17 08:00 Room Air Abdomen: + distended (,tympanitic incision with minimal drainage from lise) Laboratory Results: Results Past 24 Hours Test 02/14/17 11:51 02/14/17 18:08 02/14/17 23:59 02/15/17 05:03 Range/Units Bedside Glucose 146 150 136 70-99 mg/dl Sodium Level 143 136-145 mmol/L Potassium Level 4.3 3.5-5.1 mmol/L Chloride Level 111 98-107 mmol/L Carbon Dioxide Level 24 21-32 mmol/L Anion Gap 8.0 3-11 mmol/L Blood Urea Nitrogen 22 7-18 mg/dl Creatinine 0.98 0.60-1.40 mg/dl Est Creatinine Clear Calc Drug Dose 70.6 ml/min Estimated GFR () 84.6 Estimated GFR (Non- 73.0 BUN/Creatinine Ratio 22.1 10-20 Random Glucose 157 70-99 mg/dl Calcium Level 8.1 8.5-10.1 mg/dl Test 02/15/17 05:49 Range/Units Bedside Glucose 150 70-99 mg/dl Assessment & Plan insert Ng tube may need pic line and hyper al if not better in 24 hrs
[2017-02-15 09:25] VITALS: BP 134/82; PULSE 92; TEMP 36.8; O2SAT 95
[2017-02-15] MEDS: HEPARIN SOD 5000 UNIT/0.5 ML CARP SQ SCH ×2 (09:37→21:45)
[2017-02-15] MEDS: RANITIDINE IV 50 MG in DEXTROSE 5% 100ML 100 ML IV SCH ×3 (09:38→23:42)
[2017-02-15] MEDS ORDERED: LEVALBUTEROL 0.63MG/3 ML NEB INH PRN (11:30)
[2017-02-15] MEDS: PANTOprazole INJ 40 MG in SYRINGE 0 ML IV SCH (11:38)
[2017-02-15] MEDS: METOPROLOL TARTRATE 1 MG/ML VIAL IV. SCH ×3 (11:38→23:43)
[2017-02-15 11:40] VITALS: BP 146/92; PULSE 97; TEMP 36.3; O2SAT 97
[2017-02-15 15:30] VITALS: BP 156/83; PULSE 100; TEMP 36.6; O2SAT 94
[2017-02-15 19:30] VITALS: BP 145/86; PULSE 102; TEMP 37; O2SAT 97
[2017-02-15 20:30] VITALS: O2SAT 97
[2017-02-15] MEDS: LORAZEPAM 2 MG/ML 1 ML VIAL IV PRN (23:43)
[2017-02-16 00:10] VITALS: BP 147/92; PULSE 110; TEMP 36.7; O2SAT 97
[2017-02-16] MEDS: SODIUM CHLORIDE 0.9% 1000ML 1,000 ML IV SCH ×2 (02:54→13:31)
[2017-02-16 04:00] VITALS: BP 144/93; PULSE 127; TEMP 36.4; O2SAT 94
[2017-02-16] MEDS: METOPROLOL TARTRATE 1 MG/ML VIAL IV. SCH (05:16)
[2017-02-16] MEDS: INSULIN ASPART 100 UNITS/ML 3 ML PEN SC SCH ×5 (06:00→20:55)
--- NOTE | 2017-02-16 06:24 | Surgery Progress Note ---
Surgery Progress Note Date of Service Feb 16, 2017. Subjective Post OP Day: 5 pulled ng tube out again no complaints this morning taking nothing for pain ileostomy with output abd softer will start clear liquids leave sub cut lise in for now Objective Vital Signs: Date Time Temp Pulse Resp B/P (MAP) Pulse Ox O2 Delivery O2 Flow Rate FiO2 02/16/17 05:16 110 147/92 02/16/17 04:00 Room Air 02/16/17 00:10 Room Air 02/16/17 00:10 36.7 110 18 147/92 (110) 97 Room Air 02/15/17 23:43 110 147/92 02/15/17 20:30 97 Room Air 02/15/17 19:30 37.0 102 18 145/86 (105) 97 Room Air 02/15/17 17:59 100 156/83 02/15/17 16:00 Room Air 02/15/17 15:30 36.6 100 24 156/83 (107) 94 Room Air 02/15/17 12:00 Room Air 02/15/17 11:40 36.3 97 20 146/92 (110) 97 Room Air 02/15/17 11:38 96 146/92 02/15/17 09:25 36.8 92 16 134/82 (99) 95 Room Air 02/15/17 07:16 36.8 99 17 153/99 (117) 95 Room Air General Appearance: no apparent distress Laboratory Results: Results Past 24 Hours Test 02/15/17 11:40 02/15/17 17:56 02/15/17 23:59 02/16/17 04:44 Range/Units Bedside Glucose 154 141 141 70-99 mg/dl Assessment & Plan insert Ng tube may need pic line and hyper al if not better in 24 hrs insert Ng tube may need pic line and hyper al if not better in 24 hrs
[2017-02-16 08:00] VITALS: BP 161/104; PULSE 101; TEMP 36.3; O2SAT 96
[2017-02-16 08:01] LABS: BASO % 0.3 %; BASO ABS # 0.02 K/uL (0-0.2); COMPLETE YES; EOS % 0.6 %; HEMATOCRIT 39.8 % (42-52); IG% 2.3 %; LYMPH % 7.5 %; LYMPH ABS # 0.59 K/uL (1.2-3.4); MEAN CELL VOLUME 90.9 fL (80-100); MEAN CORPUSCULAR HEMOGLOBIN 29.7 pg (25-34); MEAN CORPUSCULAR HGB CONC 32.7 g/dl (32-36); MEAN PLATELET VOLUME 8.8 fL (7.4-10.4); MONO % 13.5 %; NEUT % 75.8 %; PLATELET COUNT 222 K/uL (130-400); RED BLOOD COUNT 4.38 M/uL (4.7-6.1); WHITE BLOOD COUNT 7.83 K/uL (4.8-10.8)
[2017-02-16 08:46] LABS: BUN/CREATININE RATIO 15.8 (10-20); CALCIUM 8.4 mg/dl (8.5-10.1); CREATININE 0.96 mg/dl (0.60-1.40); PHOSPHORUS 1.6 mg/dl (2.5-4.9); POTASSIUM 3.3 mmol/L (3.5-5.1); PREALBUMIN 9.6 mg/dl (20-40)
[2017-02-16] MEDS: METOPROLOL TARTRATE 50 MG TAB PO SCH ×2 (08:49→20:56)
[2017-02-16] MEDS: RANITIDINE IV 50 MG in DEXTROSE 5% 100ML 100 ML IV SCH ×3 (08:49→23:38)
[2017-02-16] MEDS: HEPARIN SOD 5000 UNIT/0.5 ML CARP SQ SCH ×2 (09:06→20:55)
[2017-02-16] MEDS ORDERED: POTASSIUM PHOS 3 MMOL/1 ML INFUSION IV STA (09:26)
[2017-02-16] MEDS ORDERED: ACETAMINOPHEN 325 MG TAB PO PRN (09:45)
[2017-02-16] MEDS ORDERED: POTASSIUM PHOSPHATE INJ 15 MMOL in SODIUM CHLORIDE 0.9% 250ML 250 ML IV SCH (09:45)
[2017-02-16] MEDS ORDERED: POTASSIUM CHLR 10 MEQ / WTR 40 MEQ in PREMIXED WATER 100 ML IV SCH (09:45)
[2017-02-16] MEDS: PANTOprazole INJ 40 MG in SYRINGE 0 ML IV SCH (11:00)
[2017-02-16 12:11] VITALS: BP 162/89; PULSE 102; TEMP 36.4; O2SAT 99
[2017-02-16] MEDS: ONDANSETRON INJ 2 MG/ML 2 ML VIAL IV PRN (12:39)
[2017-02-16] MEDS: POTASSIUM CHLR 10 MEQ / WTR 10 MEQ in PREMIXED WATER 100 ML IV SCH ×4 (13:30→18:53)
[2017-02-16] MEDS ORDERED: NURSING VERBAL MED ORDER ONE ×2 (15:00→17:00)
[2017-02-16 16:04] VITALS: BP 153/99; PULSE 68; TEMP 36.8; O2SAT 96
--- NOTE | 2017-02-16 17:19 | Hospitalist Progress Note ---
Hospitalist Progress Note Date of Service Feb 15, 2017. Subjective Pt evaluation today including: conversation w/ patient, conversation w/ family (son) Note from 02/15/17 did not save in EMR--this is a note with DOS 02/15/17. Pt was having a lot more pain this AM and then much improved since NGT insertion. Starting to have some gas and stool in ostomy bag. Was transferred to [facility] [place] [facility] due to A-fib and need for IV lopressor as was NPO All Other Systems: Reviewed and Negative Objective Vital Signs Date Time Temp Pulse Resp B/P (MAP) Pulse Ox O2 Delivery O2 Flow Rate FiO2 02/16/17 16:04 36.8 68 22 153/99 (117) 96 Room Air 02/16/17 12:11 36.4 102 20 162/89 (113) 99 Room Air 02/16/17 12:00 Room Air 02/16/17 08:30 Room Air 02/16/17 08:00 36.3 101 20 161/104 (123) 96 Room Air 02/16/17 05:16 110 147/92 02/16/17 04:00 36.4 127 24 144/93 (110) 94 Room Air 02/16/17 04:00 Room Air 02/16/17 00:10 Room Air 02/16/17 00:10 36.7 110 18 147/92 (110) 97 Room Air 02/15/17 23:43 110 147/92 02/15/17 20:30 97 Room Air 02/15/17 19:30 37.0 102 18 145/86 (105) 97 Room Air 02/15/17 17:59 100 156/83 Physical Exam General Appearance: WD/WN, no apparent distress Eyes: normal inspection, sclerae normal ENT: hearing grossly normal Neck: trachea midline Respiratory/Chest: lungs clear, normal breath sounds, no respiratory distress, no accessory muscle use Cardiovascular: no edema, no gallop, no murmur, + irregularly irregular Abdomen: non tender, + abnormal bowel sounds (hypoactive), + distended (mild), + pertinent finding (ostomy with small amount gas and stool) Extremities: non-tender, no pedal edema, no calf tenderness 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: alert, normal mood/affect Skin: normal color, warm/dry, no rash Laboratory Results Last 24 Hours Test 02/15/17 17:56 02/15/17 23:59 02/16/17 06:08 02/16/17 07:41 Bedside Glucose 141 mg/dl 141 mg/dl 151 mg/dl White Blood Count 7.83 K/uL Red Blood Count 4.38 M/uL Hemoglobin 13.0 g/dL Hematocrit 39.8 % Mean Corpuscular Volume 90.9 fL Mean Corpuscular Hemoglobin 29.7 pg Mean Corpuscular Hemoglobin Concent 32.7 g/dl Platelet Count 222 K/uL Mean Platelet Volume 8.8 fL Neutrophils (%) (Auto) 75.8 % Lymphocytes (%) (Auto) 7.5 % Monocytes (%) (Auto) 13.5 % Eosinophils (%) (Auto) 0.6 % Basophils (%) (Auto) 0.3 % Neutrophils # (Auto) 5.93 K/uL Lymphocytes # (Auto) 0.59 K/uL Monocytes # (Auto) 1.06 K/uL Eosinophils # (Auto) 0.05 K/uL Basophils # (Auto) 0.02 K/uL RDW Standard Deviation 43.3 fL RDW Coefficient of Variation 13.0 % Immature Granulocyte % (Auto) 2.3 % Immature Granulocyte # (Auto) 0.18 K/uL Sodium Level 140 mmol/L Potassium Level 3.3 mmol/L Chloride Level 107 mmol/L Carbon Dioxide Level 21 mmol/L Anion Gap 12.0 mmol/L Blood Urea Nitrogen 15 mg/dl Creatinine 0.96 mg/dl Est Creatinine Clear Calc Drug Dose 72.3 ml/min Estimated GFR () 86.8 Estimated GFR (Non- 74.9 BUN/Creatinine Ratio 15.8 Random Glucose 161 mg/dl Calcium Level 8.4 mg/dl Phosphorus Level 1.6 mg/dl Magnesium Level 2.0 mg/dl Total Bilirubin 1.0 mg/dl Direct Bilirubin 0.3 mg/dl Aspartate Amino Transf (AST/SGOT) 14 U/L Alanine Aminotransferase (ALT/SGPT) 20 U/L Alkaline Phosphatase 50 U/L Total Protein 6.0 gm/dl Albumin 2.7 gm/dl Prealbumin 9.6 mg/dl Triglycerides Level 132 mg/dl Cholesterol Level 101 mg/dl HDL Cholesterol 34 mg/dl LDL Cholesterol, Calculated 41 mg/dl VLDL Cholesterol, Calculated 26 mg/dl Cholesterol/HDL Ratio 3.0 Test 02/16/17 11:15 02/16/17 16:40 Bedside Glucose 158 mg/dl 151 mg/dl Assessment and Plan Pt is a 81 yo male with a h/o colon CA and colostomy since 1978, here with SBO requiring RAYMUNDO. Now with post-op ileus. 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 Continues to have ileus, NGT replaced this AM and much improved. -continue supportive care -follow electrolytes and replace - no need for TPN yet but possibly tomorrow-check lipids, LFTs, phos, mag, PRP, prealbumin in AM -Appreciate Surgical management -continue NGT to LIS -continue pain meds prn Chronic afib - now that is NPO again, will give IV lopressor and keep on tele in case rates go high again -resume xarelto once clearly not needing any future surgeries -resume po metoprolol when taking po HTN, HL-stable -continue lopressor -continue to hold losartan and statin until taking po adequately DMII-on glipizide at home. Controlled with HgbA1C 7.3% here -continue SSI, accuchecks low UO - suspect all just relates to SBO and dehydration--resolved - continue IVF NICOLLE - IVFs - resolved GERD-change to IV Zantac and PPI while NPO DVT proph - due to difficulties with PO w ileus - xarelto still on hold - heparin SQ for now
--- NOTE | 2017-02-16 17:24 | Hospitalist Progress Note ---
Hospitalist Progress Note Date of Service Feb 16, 2017. Subjective Pt evaluation today including: conversation w/ patient Pt accidentally had NGT come out again last night. Today had 2 bites of jello and a few sips of broth fo rlunch, now no appetite for dinner. Is making gas and stool in colostomy bag, no N/V. Says if NGT has to go back in, he wants premedication. Pt reports feeling confused and groggy from pain and antianxiety meds. All Other Systems: Reviewed and Negative Objective Vital Signs Date Time Temp Pulse Resp B/P (MAP) Pulse Ox O2 Delivery O2 Flow Rate FiO2 02/16/17 16:04 36.8 68 22 153/99 (117) 96 Room Air 02/16/17 12:11 36.4 102 20 162/89 (113) 99 Room Air 02/16/17 12:00 Room Air 02/16/17 08:30 Room Air 02/16/17 08:00 36.3 101 20 161/104 (123) 96 Room Air 02/16/17 05:16 110 147/92 02/16/17 04:00 36.4 127 24 144/93 (110) 94 Room Air 02/16/17 04:00 Room Air 02/16/17 00:10 Room Air 02/16/17 00:10 36.7 110 18 147/92 (110) 97 Room Air 02/15/17 23:43 110 147/92 02/15/17 20:30 97 Room Air 02/15/17 19:30 37.0 102 18 145/86 (105) 97 Room Air 02/15/17 17:59 100 156/83 Physical Exam General Appearance: WD/WN, no apparent distress Eyes: normal inspection, sclerae normal ENT: hearing grossly normal Neck: trachea midline Respiratory/Chest: lungs clear, normal breath sounds, no respiratory distress, no accessory muscle use Cardiovascular: no edema, no gallop, no murmur, + irregularly irregular Abdomen: non tender, + abnormal bowel sounds (hypoactive and tympanic BS), + distended (mild-moderate, dressing in place) Extremities: non-tender, normal inspection, no pedal edema, no calf tenderness 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: alert, normal mood/affect Skin: normal color, warm/dry, no rash Laboratory Results Last 24 Hours Test 02/15/17 17:56 7/3/17 23:59 02/16/17 06:08 02/16/17 07:41 Bedside Glucose 141 mg/dl 141 mg/dl 151 mg/dl White Blood Count 7.83 K/uL Red Blood Count 4.38 M/uL Hemoglobin 13.0 g/dL Hematocrit 39.8 % Mean Corpuscular Volume 90.9 fL Mean Corpuscular Hemoglobin 29.7 pg Mean Corpuscular Hemoglobin Concent 32.7 g/dl Platelet Count 222 K/uL Mean Platelet Volume 8.8 fL Neutrophils (%) (Auto) 75.8 % Lymphocytes (%) (Auto) 7.5 % Monocytes (%) (Auto) 13.5 % Eosinophils (%) (Auto) 0.6 % Basophils (%) (Auto) 0.3 % Neutrophils # (Auto) 5.93 K/uL Lymphocytes # (Auto) 0.59 K/uL Monocytes # (Auto) 1.06 K/uL Eosinophils # (Auto) 0.05 K/uL Basophils # (Auto) 0.02 K/uL RDW Standard Deviation 43.3 fL RDW Coefficient of Variation 13.0 % Immature Granulocyte % (Auto) 2.3 % Immature Granulocyte # (Auto) 0.18 K/uL Sodium Level 140 mmol/L Potassium Level 3.3 mmol/L Chloride Level 107 mmol/L Carbon Dioxide Level 21 mmol/L Anion Gap 12.0 mmol/L Blood Urea Nitrogen 15 mg/dl Creatinine 0.96 mg/dl Est Creatinine Clear Calc Drug Dose 72.3 ml/min Estimated GFR () 86.8 Estimated GFR (Non- 74.9 BUN/Creatinine Ratio 15.8 Random Glucose 161 mg/dl Calcium Level 8.4 mg/dl Phosphorus Level 1.6 mg/dl Magnesium Level 2.0 mg/dl Total Bilirubin 1.0 mg/dl Direct Bilirubin 0.3 mg/dl Aspartate Amino Transf (AST/SGOT) 14 U/L Alanine Aminotransferase (ALT/SGPT) 20 U/L Alkaline Phosphatase 50 U/L Total Protein 6.0 gm/dl Albumin 2.7 gm/dl Prealbumin 9.6 mg/dl Triglycerides Level 132 mg/dl Cholesterol Level 101 mg/dl HDL Cholesterol 34 mg/dl LDL Cholesterol, Calculated 41 mg/dl VLDL Cholesterol, Calculated 26 mg/dl Cholesterol/HDL Ratio 3.0 Test 02/16/17 11:15 7/4/17 16:40 Bedside Glucose 158 mg/dl 151 mg/dl Assessment and Plan Pt is a 81 yo male with a h/o colon CA and colostomy since 1978, here with SBO requiring RAYMUNDO. Now with post-op ileus. 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 Continues to have ileus, NGT fell out again last night, now slightly worse again but still with gas and stool in ostomy. Prealbumin low at 9, lyte abnormalities today -continue supportive care -follow electrolytes and replace - no need for TPN yet but possibly tomorrow as not taking much clears diet today -Appreciate Surgical management -discussed replacing NGT to LIS this evening and can premedicate with Fentanyl if needed, if abd pain and distension worsening -continue pain meds prn but avoid benzos and opioids--> reduce dilaudid dose and try toradol prn Chronic afib - now that is NPO again, was on IV lopressor, rates with bursts to 170s at times, mostly in 80s -resume xarelto once clearly not needing any future surgeries -resume po metoprolol today HTN, HL-stable -continue metoprolol -continue to hold losartan and statin until taking po adequately DMII-on glipizide at home. Controlled with HgbA1C 7.3% here -continue SSI, accuchecks low UO - suspect all just relates to SBO and dehydration--resolved - continue IVF but change to D51/2NS + KCL 20 and reduce to 75 mls/hr NICOLLE - IVFs - resolved GERD-change to IV Zantac and PPI while NPO DVT proph - due to difficulties with PO w ileus - xarelto still on hold - heparin SQ for now
[2017-02-16] MEDS: D5W AND 1/2NSS + 20MEQ KCL 1,000 ML IV SCH (17:39)
[2017-02-16] MEDS ORDERED: HYDROmorphone INJ 0.5 MG/0.5 ML SYR IV PRN (17:45)
[2017-02-16 19:04] VITALS: BP 153/88; PULSE 87; TEMP 36.7; O2SAT 95
[2017-02-17] VITALS: BP 128/62; PULSE 88; TEMP 36.7; O2SAT 97
[2017-02-17] MEDS: ONDANSETRON INJ 2 MG/ML 2 ML VIAL IV PRN ×2 (03:44→11:02)
[2017-02-17] MEDS: KETOROLAC TROMETHAMINE 15 MG/ML VIAL IV. PRN ×2 (03:44→17:05)
[2017-02-17 04:03] VITALS: BP 128/57; PULSE 82; TEMP 36.8; O2SAT 96
--- NOTE | 2017-02-17 05:46 | Surgery Progress Note ---
Surgery Progress Note Date of Service Feb 17, 2017. Subjective Post OP Day: 6 + complaints, + bowel movement, + pain controlled Objective Vital Signs: Date Time Temp Pulse Resp B/P (MAP) Pulse Ox O2 Delivery O2 Flow Rate FiO2 02/17/17 04:03 36.8 82 20 128/57 (80) 96 Room Air 02/17/17 04:00 Room Air 02/17/17 00:00 36.7 88 22 128/62 (84) 97 Room Air 02/17/17 00:00 Room Air 02/16/17 20:00 Room Air 02/16/17 19:04 36.7 87 20 153/88 (109) 95 Room Air 02/16/17 16:04 36.8 68 22 153/99 (117) 96 Room Air 02/16/17 16:00 Room Air 02/16/17 12:11 36.4 102 20 162/89 (113) 99 Room Air 02/16/17 12:00 Room Air 02/16/17 08:30 Room Air 02/16/17 08:00 36.3 101 20 161/104 (123) 96 Room Air General Appearance: + obese Abdomen: non tender (slightly distended colostomy bag full semi formed stool, incision with expected drainage non bloody non odorous ) Laboratory Results: Results Past 24 Hours Test 02/16/17 06:08 02/16/17 07:41 02/16/17 11:15 02/16/17 16:40 Range/Units Bedside Glucose 151 158 151 70-99 mg/dl White Blood Count 7.83 4.8-10.8 K/uL Red Blood Count 4.38 4.7-6.1 M/uL Hemoglobin 13.0 14.0-18.0 g/dL Hematocrit 39.8 42-52 % Mean Corpuscular Volume 90.9 80-100 fL Mean Corpuscular Hemoglobin 29.7 25-34 pg Mean Corpuscular Hemoglobin Concent 32.7 32-36 g/dl Platelet Count 222 130-400 K/uL Mean Platelet Volume 8.8 7.4-10.4 fL Neutrophils (%) (Auto) 75.8 % Lymphocytes (%) (Auto) 7.5 % Monocytes (%) (Auto) 13.5 % Eosinophils (%) (Auto) 0.6 % Basophils (%) (Auto) 0.3 % Neutrophils # (Auto) 5.93 1.4-6.5 K/uL Lymphocytes # (Auto) 0.59 1.2-3.4 K/uL Monocytes # (Auto) 1.06 0.11-0.59 K/uL Eosinophils # (Auto) 0.05 0-0.5 K/uL Basophils # (Auto) 0.02 0-0.2 K/uL RDW Standard Deviation 43.3 36.4-46.3 fL RDW Coefficient of Variation 13.0 11.5-14.5 % Immature Granulocyte % (Auto) 2.3 % Immature Granulocyte # (Auto) 0.18 0.00-0.02 K/uL Sodium Level 140 136-145 mmol/L Potassium Level 3.3 3.5-5.1 mmol/L Chloride Level 107 98-107 mmol/L Carbon Dioxide Level 21 21-32 mmol/L Anion Gap 12.0 3-11 mmol/L Blood Urea Nitrogen 15 7-18 mg/dl Creatinine 0.96 0.60-1.40 mg/dl Est Creatinine Clear Calc Drug Dose 72.3 ml/min Estimated GFR () 86.8 Estimated GFR (Non- 74.9 BUN/Creatinine Ratio 15.8 10-20 Random Glucose 161 70-99 mg/dl Calcium Level 8.4 8.5-10.1 mg/dl Phosphorus Level 1.6 2.5-4.9 mg/dl Magnesium Level 2.0 1.8-2.4 mg/dl Total Bilirubin 1.0 0.2-1 mg/dl Direct Bilirubin 0.3 0-0.2 mg/dl Aspartate Amino Transf (AST/SGOT) 14 15-37 U/L Alanine Aminotransferase (ALT/SGPT) 20 12-78 U/L Alkaline Phosphatase 50 45-117 U/L Total Protein 6.0 6.4-8.2 gm/dl Albumin 2.7 3.4-5.0 gm/dl Prealbumin 9.6 20-40 mg/dl Triglycerides Level 132 0-150 mg/dl Cholesterol Level 101 0-200 mg/dl HDL Cholesterol 34 mg/dl LDL Cholesterol, Calculated 41 mg/dl VLDL Cholesterol, Calculated 26 mg/dl Cholesterol/HDL Ratio 3.0 Test 02/16/17 20:16 02/17/17 04:44 Range/Units Bedside Glucose 153 70-99 mg/dl Assessment & Plan insert Ng tube may need pic line and hyper al if not better in 24 hrs will irrigate incision with NSS and red rubber catheter BID increase diet slowly may transfer to reg floor when ok with medicine may shower full liquids insert Ng tube may need pic line and hyper al if not better in 24 hrs
[2017-02-17] MEDS ORDERED: OXYCODONE/ACETAMINOPHEN 5-325 TAB PO PRN (06:00)
[2017-02-17 07:46] VITALS: BP 143/89; PULSE 79; TEMP 36.5; O2SAT 95
[2017-02-17] MEDS: D5W AND 1/2NSS + 20MEQ KCL 1,000 ML IV SCH ×2 (07:56→21:03)
[2017-02-17] MEDS: METOPROLOL TARTRATE 50 MG TAB PO SCH ×2 (07:58→20:58)
[2017-02-17] MEDS: INSULIN ASPART 100 UNITS/ML 3 ML PEN SC SCH ×3 (08:04→17:01)
[2017-02-17] MEDS: HEPARIN SOD 5000 UNIT/0.5 ML CARP SQ SCH ×2 (08:05→21:09)
[2017-02-17 08:12] LABS: HEMATOCRIT 36.7 % (42-52); MEAN CELL VOLUME 89.3 fL (80-100); MEAN CORPUSCULAR HEMOGLOBIN 30.2 pg (25-34); MEAN CORPUSCULAR HGB CONC 33.8 g/dl (32-36); MEAN PLATELET VOLUME 8.6 fL (7.4-10.4); PLATELET COUNT 218 K/uL (130-400); RED BLOOD COUNT 4.11 M/uL (4.7-6.1); WHITE BLOOD COUNT 6.37 K/uL (4.8-10.8)
[2017-02-17 08:45] LABS: BUN/CREATININE RATIO 13.4 (10-20); CALCIUM 8.2 mg/dl (8.5-10.1); CREATININE 0.98 mg/dl (0.60-1.40); MAGNESIUM 1.9 mg/dl (1.8-2.4); PHOSPHORUS 1.8 mg/dl (2.5-4.9); POTASSIUM 3.7 mmol/L (3.5-5.1)
[2017-02-17] MEDS: PANTOprazole INJ 40 MG in SYRINGE 0 ML IV SCH (09:25)
[2017-02-17] MEDS: RANITIDINE IV 50 MG in DEXTROSE 5% 100ML 100 ML IV SCH ×2 (09:25→17:05)
[2017-02-17] MEDS ORDERED: POTASSIUM PHOS 3 MMOL/1 ML INFUSION IV STA (09:29)
[2017-02-17] MEDS ORDERED: POTASSIUM PHOSPHATE INJ 21 MMOL in SODIUM CHLORIDE 0.9% 500ML 500 ML IV ONE (09:45)
[2017-02-17] MEDS ORDERED: MAGNESIUM SULFATE 1GM / D5W 1 GM in PREMIXED IN D5W 100 ML IV ONE (09:45)
[2017-02-17 10:42] VITALS: BP 155/91; PULSE 84; TEMP 36.3; O2SAT 96
[2017-02-17] MEDS ORDERED: FENTANYL CITRATE INJ 50 MCG/1 ML 2 ML VIAL IV PRN (15:15)
--- NOTE | 2017-02-17 15:47 | Hospitalist Progress Note ---
Hospitalist Progress Note Date of Service Feb 17, 2017. Subjective Pt evaluation today including: conversation w/ patient, physical exam, lab review, review of inpatient medication list Pt tried to have clears today and has been vomiting, now abd very distended and very nauseated. Is pursed-lip breathing. Discussed case with Dr. Cameron and will replace NGT. Constitutional: No fever Respiratory: No shortness of breath (denies but is pursed-lip breathing) Cardiovascular: No chest pain Abdomen: + pain (not sharp, but very distended), + nausea, + vomiting Objective Vital Signs Date Time Temp Pulse Resp B/P (MAP) Pulse Ox O2 Delivery O2 Flow Rate FiO2 02/17/17 12:00 Room Air 02/17/17 10:42 36.3 84 20 155/91 (112) 96 Room Air 02/17/17 08:00 Room Air 02/17/17 07:46 36.5 79 20 143/89 (107) 95 Room Air 02/17/17 04:03 36.8 82 20 128/57 (80) 96 Room Air 02/17/17 04:00 Room Air 02/17/17 00:00 36.7 88 22 128/62 (84) 97 Room Air 02/17/17 00:00 Room Air 02/16/17 20:00 Room Air 02/16/17 19:04 36.7 87 20 153/88 (109) 95 Room Air 02/16/17 16:04 36.8 68 22 153/99 (117) 96 Room Air 02/16/17 16:00 Room Air Physical Exam General Appearance: WD/WN, + mild distress Eyes: normal inspection, sclerae normal ENT: hearing grossly normal Neck: trachea midline Respiratory/Chest: lungs clear, normal breath sounds Cardiovascular: no edema, no gallop, no murmur, + irregularly irregular Abdomen: normal bowel sounds (improved from yesterday), + distended (mod- severely distended), + pertinent finding (colostomy bag with gas and small amount stool) Extremities: non-tender, normal inspection, no pedal edema, no calf tenderness 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: alert, normal mood/affect, oriented x 3 Skin: normal color, warm/dry Laboratory Results Last 24 Hours Test 02/16/17 16:40 02/16/17 20:16 02/17/17 06:53 02/17/17 07:52 Bedside Glucose 151 mg/dl 153 mg/dl 157 mg/dl White Blood Count 6.37 K/uL Red Blood Count 4.11 M/uL Hemoglobin 12.4 g/dL Hematocrit 36.7 % Mean Corpuscular Volume 89.3 fL Mean Corpuscular Hemoglobin 30.2 pg Mean Corpuscular Hemoglobin Concent 33.8 g/dl RDW Standard Deviation 42.7 fL RDW Coefficient of Variation 13.0 % Platelet Count 218 K/uL Mean Platelet Volume 8.6 fL Sodium Level 138 mmol/L Potassium Level 3.7 mmol/L Chloride Level 106 mmol/L Carbon Dioxide Level 23 mmol/L Anion Gap 9.0 mmol/L Blood Urea Nitrogen 13 mg/dl Creatinine 0.98 mg/dl Est Creatinine Clear Calc Drug Dose 70.8 ml/min Estimated GFR () 84.6 Estimated GFR (Non- 73.0 BUN/Creatinine Ratio 13.4 Random Glucose 177 mg/dl Calcium Level 8.2 mg/dl Phosphorus Level 1.8 mg/dl Magnesium Level 1.9 mg/dl Test 02/17/17 11:44 Bedside Glucose 192 mg/dl Assessment and Plan Pt is a 81 yo male with a h/o colon CA and colostomy since 1978, here with SBO requiring RAYMUNDO. Now with post-op ileus. 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 , NGT has been placed and fallen out accidentally twice. Trial of clears today resulted in N/V and worsening abd distension despite gas and stool in bag. Prealbumin low at 9, lyte abnormalities today persist and replaced lytes -replace NGT now and premedicate with Fentanyl -check abd xray now -continue supportive care -follow electrolytes and replace - will plan for PICC line placement and TPN to start tomorrow -Appreciate Surgical management -continue pain meds prn but avoid benzos and opioids--> reduce dilaudid dose and try toradol prn Chronic afib - now that is NPO again, keep IV lopressofor prn use, rates improved now but if can't tolerate po metoprolol, give IV lopressor -resume xarelto once clearly not needing any future surgeries HTN, HL-stable -continue metoprolol -continue to hold losartan and statin until taking po adequately DMII-on glipizide at home. Controlled with HgbA1C 7.3% here -continue SSI, accuchecks low UO - suspect all just relates to SBO and dehydration--resolved - continue D51/2NS + KCL 20 and reduce to 75 mls/hr and stop after TPN starts NICOLLE - IVFs - resolved GERD-change to IV Zantac and PPI while NPO DVT proph - due to difficulties with PO w ileus - xarelto still on hold - heparin SQ for now
[2017-02-17 15:57] VITALS: BP 153/93; PULSE 125; TEMP 36.7; O2SAT 95
[2017-02-17] MEDS ORDERED: FENTANYL CITRATE INJ 50 MCG/1 ML 2 ML VIAL IV ONE (16:00)
--- NOTE | 2017-02-17 16:29 | Surgery Progress Note ---
Surgery Progress Note Date of Service Feb 17, 2017. Subjective Post OP Day: 6 + nausea, + vomiting increased abd distention this pt ng tube reinserted, wound probed with q tip proximal incision only fascia not intact no bowel contents felt will place abd bibder may need to be reexplored pending clinical progress for wound dehiscence( now best I can tell defect only size of q tip prox) Objective Vital Signs: Date Time Temp Pulse Resp B/P (MAP) Pulse Ox O2 Delivery O2 Flow Rate FiO2 02/17/17 15:57 36.7 125 22 153/93 (113) 95 Room Air 02/17/17 12:00 Room Air 02/17/17 10:42 36.3 84 20 155/91 (112) 96 Room Air 02/17/17 08:00 Room Air 02/17/17 07:46 36.5 79 20 143/89 (107) 95 Room Air 02/17/17 04:03 36.8 82 20 128/57 (80) 96 Room Air 02/17/17 04:00 Room Air 02/17/17 00:00 36.7 88 22 128/62 (84) 97 Room Air 02/17/17 00:00 Room Air 02/16/17 20:00 Room Air 02/16/17 19:04 36.7 87 20 153/88 (109) 95 Room Air Laboratory Results: Results Past 24 Hours Test 02/16/17 16:40 02/16/17 20:16 02/17/17 06:53 02/17/17 07:52 Range/Units Bedside Glucose 151 153 157 70-99 mg/dl White Blood Count 6.37 4.8-10.8 K/uL Red Blood Count 4.11 4.7-6.1 M/uL Hemoglobin 12.4 14.0-18.0 g/dL Hematocrit 36.7 42-52 % Mean Corpuscular Volume 89.3 80-100 fL Mean Corpuscular Hemoglobin 30.2 25-34 pg Mean Corpuscular Hemoglobin Concent 33.8 32-36 g/dl RDW Standard Deviation 42.7 36.4-46.3 fL RDW Coefficient of Variation 13.0 11.5-14.5 % Platelet Count 218 130-400 K/uL Mean Platelet Volume 8.6 7.4-10.4 fL Sodium Level 138 136-145 mmol/L Potassium Level 3.7 3.5-5.1 mmol/L Chloride Level 106 98-107 mmol/L Carbon Dioxide Level 23 21-32 mmol/L Anion Gap 9.0 3-11 mmol/L Blood Urea Nitrogen 13 7-18 mg/dl Creatinine 0.98 0.60-1.40 mg/dl Est Creatinine Clear Calc Drug Dose 70.8 ml/min Estimated GFR () 84.6 Estimated GFR (Non- 73.0 BUN/Creatinine Ratio 13.4 10-20 Random Glucose 177 70-99 mg/dl Calcium Level 8.2 8.5-10.1 mg/dl Phosphorus Level 1.8 2.5-4.9 mg/dl Magnesium Level 1.9 1.8-2.4 mg/dl Test 02/17/17 11:44 Range/Units Bedside Glucose 192 70-99 mg/dl Assessment & Plan insert Ng tube may need pic line and hyper al if not better in 24 hrs will irrigate incision with NSS and red rubber catheter BID increase diet slowly may transfer to reg floor when ok with medicine may shower insert Ng tube may need pic line and hyper al if not better in 24 hrs will irrigate incision with NSS and red rubber catheter BID increase diet slowly may transfer to reg floor when ok with medicine may shower
--- NOTE | 2017-02-17 17:09 | DIAGNOSTIC IMAGING REPORT ---
AP CHEST WITH ABDOMINAL SERIES CLINICAL HISTORY: Follow-up ileus. FINDINGS: An AP, portable, upright chest radiograph is compared to study dated 06/12/2016. The examination is degraded by patient rotation. An enteric tube is coiled in the distal esophagus. The heart is enlarged and there is atherosclerotic calcification of the thoracic aorta. The pulmonary vascular structures noncongested. There are layering pleural effusions with bibasilar consolidation. No pneumothorax is seen. The skeletal structures are osteopenic. The bony thorax is grossly intact. Supine and erect portable abdominal radiographs are compared to KUB dated 02/11/2017 and correlated with abdominal CT dated 02/10/2017. There are distended and gas-filled loops of small bowel. There is also mild gaseous distention of the colon. Skin clips project over the lower abdomen. Intraperitoneal free air is questioned on the upright view. There are no abnormal abdominal calcifications. The lumbosacral spine and bony pelvis appear intact. A right hip arthroplasty is in place. IMPRESSION: 1. An enteric tube is coiled in the distal esophagus. Repositioning is indicated. 2. Cardiomegaly without radiographic evidence of congestive failure. 3. Layering pleural effusions with bibasilar consolidation. This likely represent atelectasis, and these are new from 02/10/2017. 4. There are skin clips projecting over the pelvis. Additionally, there are numerous distended and gas-filled loops of small bowel. There is also mild gaseous distention of the colon. Given the evidence of recent surgery this likely represents ileus. Small bowel obstruction could have a similar appearance. Clinical correlation will be required. 5. Suspect intraperitoneal free air below the diaphragm. This is nonspecific in the setting recent surgery. If confirmation is required a decubitus view could be obtained. Electronically signed by: Behzad Bradley M.D. 02/17/2017 5:07 PM Dictated Date/Time: 02/17/2017 5:02 PM
[2017-02-17] MEDS ORDERED: LIDOCAINE HCL 2% JELLY 30 ML TUBE EXT ONE (18:04)
--- NOTE | 2017-02-17 18:45 | Procedure Note ---
Procedure Note Date of Service Feb 17, 2017. Procedure Note NG placement: At the request of the hospitalist due to prior NG dislodgement, I placed an 18 Fr NG into the left nare and secured the tube at 76 cm. 500 mL of bilious fluid was drained. A KUB is pending. The patient tolerated the procedure well. Cetacaine spray was applied topically to the posterior pharynx and 4% lidocaine instilled into the Left nare.
--- NOTE | 2017-02-17 19:18 | DIAGNOSTIC IMAGING REPORT ---
KUB CLINICAL HISTORY: Nasogastric tube placement. COMPARISON STUDY: Abdominal series performed earlier today. FINDINGS: The tip of the nasogastric tube projects over the gastroesophageal junction. The tube could be advanced 6 cm. Gaseous distention of small bowel is again noted within visualized portions of the abdomen. IMPRESSION: Tip of nasogastric tube projects over the gastroesophageal junction. The tube could be advanced 6 cm. Electronically signed by: Sami Tinajero M.D. 02/17/2017 7:16 PM Dictated Date/Time: 02/17/2017 7:15 PM
[2017-02-17] MEDS ORDERED: NURSING VERBAL MED ORDER ONE ×3 (20:00→21:30)
[2017-02-17 20:03] VITALS: BP 162/98; PULSE 136; TEMP 36.5; O2SAT 95
[2017-02-17] MEDS: METOPROLOL TARTRATE 1 MG/ML VIAL IV PRN (21:03)
[2017-02-17] MEDS ORDERED: DILTIAZEM BOLUS / DRIP IV STA (21:24)
[2017-02-17] MEDS ORDERED: OXYMETAZOLINE HCL 0.05% NA SPR 15 ML BTL NAE PRN (21:30)
[2017-02-17] MEDS ORDERED: DILTIAZEM HCL 5 MG/ML 5 ML VIAL IV SCH (21:30)
[2017-02-17] MEDS: DILTIAZEM HCL INJ 125 MG in DEXTROSE 5% 100ML IV PRN (21:59)
[2017-02-18] VITALS (7 sets, daily range): BP systolic 132–164; BP diastolic 67–88; PULSE 65–110; TEMP 36.2–36.7; O2SAT 92–95
[2017-02-18] MEDS ORDERED: NURSING VERBAL MED ORDER ONE
[2017-02-18] MEDS: RANITIDINE IV 50 MG in DEXTROSE 5% 100ML 100 ML IV SCH ×3 (00:18→15:49)
[2017-02-18] MEDS: INSULIN ASPART 100 UNITS/ML 3 ML PEN SC SCH ×4 (00:27→18:03)
--- NOTE | 2017-02-18 06:29 | Surgery Progress Note ---
Surgery Progress Note Date of Service Feb 18, 2017. Subjective Post OP Day: 7 Ng tube insertwed by me last Pm curled distal esophagus, Dr Aponte got involved and repositioned it but xray showed distal esophagus, Dr Patel come in and advanced it, pt feels much better this am colostomy with good output, Ng drainage taiwo 1500 since insertion Objective Vital Signs: Date Time Temp Pulse Resp B/P (MAP) Pulse Ox O2 Delivery O2 Flow Rate FiO2 02/18/17 04:00 36.4 108 22 137/88 (104) 95 Room Air 02/18/17 04:00 Room Air 02/18/17 00:00 36.3 105 22 148/85 (106) 95 Room Air 02/17/17 23:59 Room Air 02/17/17 21:03 150 168/86 02/17/17 20:03 36.5 136 21 162/98 (119) 95 Room Air 02/17/17 20:00 Room Air 02/17/17 16:00 Room Air 02/17/17 15:57 36.7 125 22 153/93 (113) 95 Room Air 02/17/17 12:00 Room Air 02/17/17 10:42 36.3 84 20 155/91 (112) 96 Room Air 02/17/17 08:00 Room Air 02/17/17 07:46 36.5 79 20 143/89 (107) 95 Room Air General Appearance: no apparent distress (alert coherent without complaints) Abdomen: + pertinent finding (softer but still bit distende,colostomy bag just emptied, fascia probed with q tip appears intact minimal drainage from incision) Laboratory Results: Results Past 24 Hours Test 02/17/17 06:53 02/17/17 07:52 02/17/17 11:44 02/17/17 18:31 Range/Units Bedside Glucose 157 192 216 70-99 mg/dl White Blood Count 6.37 4.8-10.8 K/uL Red Blood Count 4.11 4.7-6.1 M/uL Hemoglobin 12.4 14.0-18.0 g/dL Hematocrit 36.7 42-52 % Mean Corpuscular Volume 89.3 80-100 fL Mean Corpuscular Hemoglobin 30.2 25-34 pg Mean Corpuscular Hemoglobin Concent 33.8 32-36 g/dl RDW Standard Deviation 42.7 36.4-46.3 fL RDW Coefficient of Variation 13.0 11.5-14.5 % Platelet Count 218 130-400 K/uL Mean Platelet Volume 8.6 7.4-10.4 fL Sodium Level 138 136-145 mmol/L Potassium Level 3.7 3.5-5.1 mmol/L Chloride Level 106 98-107 mmol/L Carbon Dioxide Level 23 21-32 mmol/L Anion Gap 9.0 3-11 mmol/L Blood Urea Nitrogen 13 7-18 mg/dl Creatinine 0.98 0.60-1.40 mg/dl Est Creatinine Clear Calc Drug Dose 70.8 ml/min Estimated GFR () 84.6 Estimated GFR (Non- 73.0 BUN/Creatinine Ratio 13.4 10-20 Random Glucose 177 70-99 mg/dl Calcium Level 8.2 8.5-10.1 mg/dl Phosphorus Level 1.8 2.5-4.9 mg/dl Magnesium Level 1.9 1.8-2.4 mg/dl Test 02/18/17 00:24 02/18/17 04:44 Range/Units Bedside Glucose 246 70-99 mg/dl Assessment & Plan insert Ng tube may need pic line and hyper al if not better in 24 hrs will irrigate incision with NSS and red rubber catheter BID increase diet slowly may transfer to reg floor when ok with medicine may shower insert Ng tube may need pic line and hyper al if not better in 24 hrs will irrigate incision with NSS and red rubber catheter BID increase diet slowly may transfer to reg floor when ok with medicine may shower 02/18/2017 pic line and hyper al to be started today continue with ng tube decompression continue with abd binder watch for wound problems
[2017-02-18] MEDS: DILTIAZEM HCL INJ 125 MG in DEXTROSE 5% 100ML IV PRN ×3 (06:44→21:41)
[2017-02-18 07:07] LABS: BASO % 0.3 %; BASO ABS # 0.03 K/uL (0-0.2); COMPLETE YES; EOS % 0.6 %; IG% 1.4 %; LYMPH % 4.2 %; LYMPH ABS # 0.43 K/uL (1.2-3.4); MEAN CELL VOLUME 89.3 fL (80-100); MEAN CORPUSCULAR HEMOGLOBIN 29.9 pg (25-34); MEAN CORPUSCULAR HGB CONC 33.5 g/dl (32-36); MEAN PLATELET VOLUME 8.9 fL (7.4-10.4); MONO % 7.9 %; NEUT % 85.6 %; PLATELET COUNT 231 K/uL (130-400); RED BLOOD COUNT 4.48 M/uL (4.7-6.1); WHITE BLOOD COUNT 10.26 K/uL (4.8-10.8)
[2017-02-18 07:34] LABS: BUN/CREATININE RATIO 9.6 (10-20); CALCIUM 8.5 mg/dl (8.5-10.1); POTASSIUM 3.6 mmol/L (3.5-5.1)
[2017-02-18 07:37] LABS: PHOSPHORUS 2.1 mg/dl (2.5-4.9)
[2017-02-18] MEDS: METOPROLOL TARTRATE 50 MG TAB PO SCH ×2 (08:29→20:36)
[2017-02-18] MEDS: D5W AND 1/2NSS + 20MEQ KCL 1,000 ML IV SCH (08:29)
[2017-02-18] MEDS: HEPARIN SOD 5000 UNIT/0.5 ML CARP SQ SCH ×2 (08:30→20:39)
[2017-02-18] MEDS: PANTOprazole INJ 40 MG in SYRINGE 0 ML IV SCH (08:31)
--- NOTE | 2017-02-18 08:42 | DIAGNOSTIC IMAGING REPORT ---
CHEST ONE VIEW PORTABLE HISTORY: 81-year-old male presents status post right PICC placement. Atrial fibrillation. COMPARISON: Chest radiograph 06/12/2016. TECHNIQUE: Portable upright AP view of the chest. FINDINGS: There has been interval placement of a right-sided PICC which loops upon itself with distal tip near the right brachiocephalic SVC confluence. No postprocedural pneumothorax identified. Multiple slender leads overlie the chest. Cardiac silhouette is upper limits of normal. There is atherosclerosis of the aorta. There is mild right hemidiaphragmatic elevation with hazy right basilar opacities. No large pneumothorax. Lungs are hypoinflated. Bones appear grossly intact. IMPRESSION: 1. Malpositioned right-sided PICC loops upon itself with distal tip terminating near the right brachiocephalic SVC confluence. Repositioning with follow-up imaging is recommended. 2. Hypoinflated lungs with probable right basilar atelectasis. Electronically signed by: Mayco Rodriguez 02/18/2017 8:41 AM Dictated Date/Time: 02/18/2017 8:36 AM
[2017-02-18] MEDS ORDERED: PIPERACILL/TAZOBAC CONSULT ACTIVE PRN (08:45)
[2017-02-18] MEDS ORDERED: PIPERACILL/TAZOBAC IV 3.375 GM in DEXTROSE 5% 100ML 100 ML IV SCH (09:00)
--- NOTE | 2017-02-18 09:09 | DIAGNOSTIC IMAGING REPORT ---
CHEST ONE VIEW PORTABLE CLINICAL HISTORY: pic placement right arm line position COMPARISON STUDY: 02/18/2017 8:20 AM FINDINGS: Central catheter in good positions in the superior vena cava. No evidence for tube coiling. No evidence pneumothorax. IMPRESSION: PICC catheter in good position in the superior vena cava Electronically signed by: Jason Khan M.D. 02/18/2017 9:08 AM Dictated Date/Time: 02/18/2017 9:07 AM
[2017-02-18] MEDS ORDERED: TPN/PPN CONSULT PHARMACY PRN (09:45)
--- NOTE | 2017-02-18 11:57 | Hospitalist Progress Note ---
Hospitalist Progress Note Date of Service Feb 18, 2017. Subjective Pt evaluation today including: conversation w/ patient Voiding: no voiding problems Pt had very rough day yesterday and I spent over 2 hours with him and multiple attempts to get NGT back into place. had epistaxis from trauma, then NGT continued to coil in his esophagus and in back of throat, gurgling on blood gtt from nose. Had fecal material in emesis, then drained 1250 mL from NGT of brown liquid after Dr. Colmenares got tube int position. Also had ALEXANDRA to the 160s-170s during whole process Feeling much better today overall but very weak. PICC placed today Constitutional: No fever Eyes: No problem reported ENT: + nasal symptoms (congestion and pain) Respiratory: No shortness of breath Cardiovascular: No chest pain All Other Systems: Reviewed and Negative Objective Vital Signs Date Time Temp Pulse Resp B/P (MAP) Pulse Ox O2 Delivery O2 Flow Rate FiO2 02/18/17 08:27 36.6 94 16 164/67 (99) 94 Room Air 02/18/17 08:00 Room Air 02/18/17 04:00 36.4 108 22 137/88 (104) 95 Room Air 02/18/17 04:00 Room Air 02/18/17 00:00 36.3 105 22 148/85 (106) 95 Room Air 02/17/17 23:59 Room Air 02/17/17 21:03 150 168/86 02/17/17 20:03 36.5 136 21 162/98 (119) 95 Room Air 02/17/17 20:00 Room Air 02/17/17 16:00 Room Air 02/17/17 15:57 36.7 125 22 153/93 (113) 95 Room Air 02/17/17 12:00 Room Air Physical Exam General Appearance: no apparent distress (sitting in chair) Eyes: normal inspection, sclerae normal ENT: hearing grossly normal, + pertinent finding (NGT in place) Neck: trachea midline Respiratory/Chest: no respiratory distress, no accessory muscle use, + crackles (at bases) Cardiovascular: no edema, no gallop, no murmur, + irregularly irregular Abdomen: normal bowel sounds, non tender, + distended (mild, much improved from previous, colostomy bag with air and stool) Extremities: non-tender, normal inspection, no calf tenderness 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: alert, normal mood/affect, oriented x 3 Skin: normal color, warm/dry, no rash Laboratory Results Last 24 Hours Test 02/17/17 18:31 02/18/17 00:24 02/18/17 05:56 02/18/17 06:49 Bedside Glucose 216 mg/dl 246 mg/dl 217 mg/dl White Blood Count 10.26 K/uL Red Blood Count 4.48 M/uL Hemoglobin 13.4 g/dL Hematocrit 40.0 % Mean Corpuscular Volume 89.3 fL Mean Corpuscular Hemoglobin 29.9 pg Mean Corpuscular Hemoglobin Concent 33.5 g/dl Platelet Count 231 K/uL Mean Platelet Volume 8.9 fL Neutrophils (%) (Auto) 85.6 % Lymphocytes (%) (Auto) 4.2 % Monocytes (%) (Auto) 7.9 % Eosinophils (%) (Auto) 0.6 % Basophils (%) (Auto) 0.3 % Neutrophils # (Auto) 8.79 K/uL Lymphocytes # (Auto) 0.43 K/uL Monocytes # (Auto) 0.81 K/uL Eosinophils # (Auto) 0.06 K/uL Basophils # (Auto) 0.03 K/uL RDW Standard Deviation 42.8 fL RDW Coefficient of Variation 13.3 % Immature Granulocyte % (Auto) 1.4 % Immature Granulocyte # (Auto) 0.14 K/uL Sodium Level 135 mmol/L Potassium Level 3.6 mmol/L Chloride Level 104 mmol/L Carbon Dioxide Level 23 mmol/L Anion Gap 8.0 mmol/L Blood Urea Nitrogen 10 mg/dl Creatinine 1.00 mg/dl Est Creatinine Clear Calc Drug Dose 69.6 ml/min Estimated GFR () 82.6 Estimated GFR (Non- 71.3 BUN/Creatinine Ratio 9.6 Random Glucose 234 mg/dl Calcium Level 8.5 mg/dl Phosphorus Level 2.1 mg/dl Magnesium Level 2.0 mg/dl Total Bilirubin 0.8 mg/dl Direct Bilirubin 0.3 mg/dl Aspartate Amino Transf (AST/SGOT) 24 U/L Alanine Aminotransferase (ALT/SGPT) 41 U/L Alkaline Phosphatase 56 U/L Total Protein 5.6 gm/dl Albumin 2.5 gm/dl Assessment and Plan Pt is a 81 yo male with a h/o colon CA and colostomy since 1978, here with SBO requiring RAYMUNDO. Now with post-op ileus. 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 , NGT has been placed and fallen out accidentally twice. Trial of clears on 02/17 resulted in N/V and worsening abd distension despite gas and stool in bag. Took numerous attempts and nasal trauma to get NGT back into place over a 6 hour period on 02/17, finally successful and had drainage of 1250 mL brown liquid Prealbumin low at 9, lyte abnormalities NPO for 1 week now AAS with some possible free air under diaphragm but expected given recent surgery Improved today with NGT in place -continue NGT to LIS -continue supportive care -follow electrolytes and replace - PICC line placed and TPN to start tonight -Appreciate Surgical management -continue pain meds prn but avoid benzos and opioids -toradol prn Chronic afib - now that is NPO again, rates went very high during NGT placement problems to the 170s, improved on dilt gtt -continue diltiazem gtt -restart po metoprolol when taking po -resume xarelto once clearly not needing any future surgeries HTN, HL-stable -continue dilt gtt -restart metoprolol when taking po -continue to hold losartan and statin until taking po adequately DMII-on glipizide at home. Controlled with HgbA1C 7.3% here -continue SSI, accuchecks low UO - suspect all just relates to SBO and dehydration--resolved - continue D51/2NS + KCL 20 and reduce to 75 mls/hr and stop after TPN starts NICOLLE - IVFs - resolved GERD-change to IV Zantac and PPI while NPO DVT proph - due to difficulties with PO w ileus - xarelto still on hold - heparin SQ for now Dispo-continue tele while on dilt gtt
[2017-02-18] MEDS ORDERED: DEXTROSE 10% 1,000 ML IV PRN (13:09)
[2017-02-18] MEDS: PIPERACILL/TAZOBAC IV 3.375 GM in DEXTROSE 5% 100ML 100 ML IV SCH ×2 (13:40→20:40)
--- NOTE | 2017-02-18 14:52 | DIAGNOSTIC IMAGING REPORT ---
KUB HISTORY:81 yearsMal[age] NG placement. COMPARISON: KUB radiograph 02/17/2017. TECHNIQUE: Portal supine abdominal radiograph. FINDINGS: Dilated loops of small bowel are again seen within the mid and left abdomen measuring up to 5.1 cm transversely which appears similar from comparison. No gross pneumoperitoneum on this supine view. Enteric tube loops within the stomach with distal tip in the region of the proximal gastric body or fundus. Surgical sander are seen overlying the midline abdomen. Right hip arthroplasty noted. Degenerative changes are seen throughout the spine without definite fracture. IMPRESSION: 1. Looped enteric tube terminates to the left of midline, likely within the proximal gastric body or fundus. 2. Persistent dilated loops of small bowel suggest ongoing obstruction. The above report was generated using voice recognition software. It may contain grammatical, syntax or spelling errors. Electronically signed by: Mayco Rodriguez 02/18/2017 2:50 PM Dictated Date/Time: 02/18/2017 2:48 PM
[2017-02-18] MEDS ORDERED: SODIUM CHLORIDE 0.65% NA SOLN 45 ML (OCEAN) ONE (14:57)
[2017-02-18] MEDS ORDERED: CUSTOM CENTRAL PN 1 BAG IV SCH (16:00)
[2017-02-19] VITALS (7 sets, daily range): BP systolic 105–155; BP diastolic 71–91; PULSE 74–116; TEMP 36.2–36.7; O2SAT 92–95
[2017-02-19] MEDS: RANITIDINE IV 50 MG in DEXTROSE 5% 100ML 100 ML IV SCH ×4 (00:21→23:36)
[2017-02-19] MEDS: INSULIN ASPART 100 UNITS/ML 3 ML PEN SC SCH ×4 (00:24→23:40)
[2017-02-19 04:50] LABS: HEMATOCRIT 37.3 % (42-52); MEAN CELL VOLUME 88.6 fL (80-100); MEAN CORPUSCULAR HEMOGLOBIN 29.9 pg (25-34); MEAN CORPUSCULAR HGB CONC 33.8 g/dl (32-36); MEAN PLATELET VOLUME 9.1 fL (7.4-10.4); PLATELET COUNT 247 K/uL (130-400); RED BLOOD COUNT 4.21 M/uL (4.7-6.1); WHITE BLOOD COUNT 9.97 K/uL (4.8-10.8)
[2017-02-19 05:14] LABS: BASO % 0.1 %; BASO ABS # 0.01 K/uL (0-0.2); COMPLETE YES; DOHLE BODIES 1+; ECHINOCYTES 1+; EOS % 1.1 %; IG% 1.1 %; LYMPH % 6.3 %; LYMPH ABS # 0.63 K/uL (1.2-3.4); NEUT % 83.4 %
[2017-02-19 05:15] LABS: BUN/CREATININE RATIO 11.5 (10-20); CALCIUM 7.9 mg/dl (8.5-10.1); CREATININE 0.96 mg/dl (0.60-1.40); PHOSPHORUS 2.3 mg/dl (2.5-4.9); POTASSIUM 3.4 mmol/L (3.5-5.1)
[2017-02-19] MEDS: PIPERACILL/TAZOBAC IV 3.375 GM in DEXTROSE 5% 100ML 100 ML IV SCH ×3 (05:43→22:25)
[2017-02-19] MEDS: DILTIAZEM HCL INJ 125 MG in DEXTROSE 5% 100ML IV PRN ×3 (05:44→22:32)
[2017-02-19] MEDS: PANTOprazole INJ 40 MG in SYRINGE 0 ML IV SCH (08:01)
[2017-02-19] MEDS: METOPROLOL TARTRATE 50 MG TAB PO SCH ×2 (08:01→21:01)
[2017-02-19] MEDS: HEPARIN SOD 5000 UNIT/0.5 ML CARP SQ SCH ×2 (08:03→21:03)
--- NOTE | 2017-02-19 08:47 | Surgery Progress Note ---
Surgery Progress Note Date of Service Feb 19, 2017. Subjective Post OP Day: 8 colostomy with good output feels better Objective Vital Signs: Date Time Temp Pulse Resp B/P (MAP) Pulse Ox O2 Delivery O2 Flow Rate FiO2 02/19/17 08:10 36.2 101 18 147/71 (96) 92 Room Air 02/19/17 04:39 36.5 79 20 105/78 (87) 92 Room Air 02/19/17 04:00 92 Room Air 02/19/17 00:01 92 Room Air 02/18/17 23:48 36.7 65 22 142/83 (102) 92 Room Air 02/18/17 20:00 Room Air 02/18/17 19:31 36.2 110 19 155/75 (101) 93 02/18/17 16:00 Room Air 02/18/17 15:16 36.6 96 20 151/78 (102) 92 Room Air 02/18/17 12:05 36.4 76 19 132/74 (93) 95 Room Air 02/18/17 12:00 Room Air Abdomen: + pertinent finding (softer incision probed with q tip fascia appears intact no cellulitis ng tube in place) Laboratory Results: Results Past 24 Hours Test 02/18/17 11:58 02/18/17 16:04 02/18/17 17:56 02/18/17 23:59 Range/Units Bedside Glucose 251 243 242 235 70-99 mg/dl Test 02/19/17 04:20 02/19/17 05:46 Range/Units White Blood Count 9.97 4.8-10.8 K/uL Red Blood Count 4.21 4.7-6.1 M/uL Hemoglobin 12.6 14.0-18.0 g/dL Hematocrit 37.3 42-52 % Mean Corpuscular Volume 88.6 80-100 fL Mean Corpuscular Hemoglobin 29.9 25-34 pg Mean Corpuscular Hemoglobin Concent 33.8 32-36 g/dl Platelet Count 247 130-400 K/uL Mean Platelet Volume 9.1 7.4-10.4 fL Neutrophils (%) (Auto) 83.4 % Lymphocytes (%) (Auto) 6.3 % Monocytes (%) (Auto) 8.0 % Eosinophils (%) (Auto) 1.1 % Basophils (%) (Auto) 0.1 % Neutrophils # (Auto) 8.31 1.4-6.5 K/uL Lymphocytes # (Auto) 0.63 1.2-3.4 K/uL Monocytes # (Auto) 0.80 0.11-0.59 K/uL Eosinophils # (Auto) 0.11 0-0.5 K/uL Basophils # (Auto) 0.01 0-0.2 K/uL RDW Standard Deviation 42.4 36.4-46.3 fL RDW Coefficient of Variation 13.1 11.5-14.5 % Immature Granulocyte % (Auto) 1.1 % Immature Granulocyte # (Auto) 0.11 0.00-0.02 K/uL Dohle Bodies 1+ Echinocytes 1+ Sodium Level 136 136-145 mmol/L Potassium Level 3.4 3.5-5.1 mmol/L Chloride Level 104 98-107 mmol/L Carbon Dioxide Level 26 21-32 mmol/L Anion Gap 6.0 3-11 mmol/L Blood Urea Nitrogen 11 7-18 mg/dl Creatinine 0.96 0.60-1.40 mg/dl Est Creatinine Clear Calc Drug Dose 72.5 ml/min Estimated GFR () 86.8 Estimated GFR (Non- 74.9 BUN/Creatinine Ratio 11.5 10-20 Random Glucose 227 70-99 mg/dl Calcium Level 7.9 8.5-10.1 mg/dl Phosphorus Level 2.3 2.5-4.9 mg/dl Magnesium Level 2.0 1.8-2.4 mg/dl Albumin 2.2 3.4-5.0 gm/dl Triglycerides Level 128 0-150 mg/dl Bedside Glucose 219 70-99 mg/dl Assessment & Plan 02/19/2017 continue hyperal and ng tube decom xray shoes excess in stomach but will leave as is since working insert Ng tube may need pic line and hyper al if not better in 24 hrs will irrigate incision with NSS and red rubber catheter BID increase diet slowly may transfer to reg floor when ok with medicine may shower 02/18/2017 pic line and hyper al to be started today continue with ng tube decompression continue with abd binder watch for wound problems
--- NOTE | 2017-02-19 13:05 | Clinical Documentation Query ---
QUERY 1 OF [address] JENKINS, In your clinical opinion is this patient being managed for: ( x ) protein-calorie malnutrition ( ) Other explanation of clinical findings (Please Explain) ( ) Unable to determine (Please Define) ( ) Need to Discuss ( ) Not Agree The medical record reflects the following clinical findings, treatment, and risk factors. Clinical Indicators:81 yo male presenting with a small bowel obstruction requiring an exp lap, lysis of adhesions. Has been NPO since admission on 02/10. Had Clear liq diet x approx 24 hours. Developed an ileus, has required an NGT Treatment: PICC line, dietary consult, initiation of TPN Risk Factors: SBO, ileus QUERY 2 OF 2 The diagnosis of postoperative ileus is noted in the clinical record. This patient presented with a small bowel obstruction and required an exp lap and lysis of adhesions. For accurate coding of this diagnosis, please document one of the following options. In your clinical opinion is this patient being managed for: ( x ) ileus is a complication of surgery ( ) ileus is not a complication of surgery Please clarify and document your clinical opinion in the progress notes and discharge summary. Terms such as "probable", "suspected", "likely", "questionable", "possible", or "still to be ruled out" are acceptable. IF IN AGREEMENT, YOU MUST DOCUMENT ABOVE DIAGNOSTIC STATEMENT IN DAILY PROGRESS NOTES AND DISCHARGE SUMMARY. This document is not part of the patient's record. Thank You, Mary Jane Garcia, JAMA [phone]
[2017-02-19] MEDS ORDERED: CUSTOM CENTRAL PN 1 BAG IV SCH (16:00)
[2017-02-19] MEDS ORDERED: FUROSEMIDE 40 MG/4 ML VIAL ONE (17:45)
[2017-02-19] MEDS ORDERED: FUROSEMIDE INJ 40 MG in SYRINGE 0 ML IV STA (17:50)
--- NOTE | 2017-02-19 18:11 | Hospitalist Progress Note ---
Hospitalist Progress Note Date of Service Feb 19, 2017. Subjective Pt evaluation today including: conversation w/ patient, conversation w/ family , review of inpatient medication list Voiding: no voiding problems Pt still with a lot of secretions in throat, spitting it up, no SOB. He has noticed his scrotum is very swollen and legs swollen today, feeling stiff. He is +13L overall for his hospital stay assuming I/Os are accurate. He is also having a hard time sleeping and a lot of discomfort in his nose due to the NGT All Other Systems: Reviewed and Negative Objective Vital Signs Date Time Temp Pulse Resp B/P (MAP) Pulse Ox O2 Delivery O2 Flow Rate FiO2 02/19/17 16:45 Room Air 02/19/17 15:25 36.7 85 20 147/75 (99) 95 Room Air 02/19/17 12:00 Room Air 02/19/17 11:57 36.3 74 18 155/76 (102) 94 Room Air 02/19/17 08:10 36.2 101 18 147/71 (96) 92 Room Air 02/19/17 08:00 Room Air 02/19/17 04:39 36.5 79 20 105/78 (87) 92 Room Air 02/19/17 04:00 92 Room Air 02/19/17 00:01 92 Room Air 02/18/17 23:48 36.7 65 22 142/83 (102) 92 Room Air 02/18/17 20:00 Room Air 02/18/17 19:31 36.2 110 19 155/75 (101) 93 Physical Exam General Appearance: WD/WN, no apparent distress Eyes: normal inspection, sclerae normal, + pertinent finding (NGT in place) ENT: hearing grossly normal, + pertinent finding (erythema in posterior OP) Neck: trachea midline Respiratory/Chest: no respiratory distress, no accessory muscle use, + crackles (very coarse at bases and middle lung ness bilat, +wheezing in lower lung ness) Cardiovascular: + tachycardia (mild), + irregularly irregular, + pertinent finding (2-3+ pitting edema in legs to knees, 1+ in thighs and scrotum with edema as well) Abdomen: soft (with abd binder in place, colostomy bag with gas in it, no stool or liquid, nontender) Extremities: no calf tenderness, + swelling (as above) 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: alert, normal mood/affect, oriented x 3 Skin: normal color, warm/dry, no rash Laboratory Results Last 24 Hours Test 02/18/17 17:56 02/18/17 23:59 02/19/17 04:20 02/19/17 05:46 Bedside Glucose 242 mg/dl 235 mg/dl 219 mg/dl White Blood Count 9.97 K/uL Red Blood Count 4.21 M/uL Hemoglobin 12.6 g/dL Hematocrit 37.3 % Mean Corpuscular Volume 88.6 fL Mean Corpuscular Hemoglobin 29.9 pg Mean Corpuscular Hemoglobin Concent 33.8 g/dl Platelet Count 247 K/uL Mean Platelet Volume 9.1 fL Neutrophils (%) (Auto) 83.4 % Lymphocytes (%) (Auto) 6.3 % Monocytes (%) (Auto) 8.0 % Eosinophils (%) (Auto) 1.1 % Basophils (%) (Auto) 0.1 % Neutrophils # (Auto) 8.31 K/uL Lymphocytes # (Auto) 0.63 K/uL Monocytes # (Auto) 0.80 K/uL Eosinophils # (Auto) 0.11 K/uL Basophils # (Auto) 0.01 K/uL RDW Standard Deviation 42.4 fL RDW Coefficient of Variation 13.1 % Immature Granulocyte % (Auto) 1.1 % Immature Granulocyte # (Auto) 0.11 K/uL Dohle Bodies 1+ Echinocytes 1+ Sodium Level 136 mmol/L Potassium Level 3.4 mmol/L Chloride Level 104 mmol/L Carbon Dioxide Level 26 mmol/L Anion Gap 6.0 mmol/L Blood Urea Nitrogen 11 mg/dl Creatinine 0.96 mg/dl Est Creatinine Clear Calc Drug Dose 72.5 ml/min Estimated GFR () 86.8 Estimated GFR (Non- 74.9 BUN/Creatinine Ratio 11.5 Random Glucose 227 mg/dl Calcium Level 7.9 mg/dl Phosphorus Level 2.3 mg/dl Magnesium Level 2.0 mg/dl Albumin 2.2 gm/dl Triglycerides Level 128 mg/dl Test 02/19/17 14:15 Bedside Glucose 235 mg/dl Assessment and Plan Pt is a 81 yo male with a h/o colon CA and colostomy since 1978, here with SBO requiring RAYMUNDO. Now with post-op ileus. 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 , NGT has been placed and fallen out accidentally twice. Trial of clears on 02/17 resulted in N/V and worsening abd distension despite gas and stool in bag. Took numerous attempts and nasal trauma to get NGT back into place over a 6 hour period on 02/17, finally successful and had drainage of 1250 mL brown liquid- drainage has slowed down significantly Prealbumin low at 9, lyte abnormalities, started TPN on 02/18 and improved lytes AAS with some possible free air under diaphragm but expected given recent surgery Ileus seems to be resolving but would NOT remove NGT until absolutely sure ileus resolved given great difficulty in placing it -continue NGT to LIS -continue supportive care -follow electrolytes and replace in TPN and separately as needed - PICC line placed and continue TPN -Appreciate Surgical management -continue pain meds prn but avoid benzos and opioids Acute on chronic diastolic CHF- now +13L this stay and with significant rales on exam, LE edema, scrotal edema. This may actually be contributing to the frothy secretions in his throat--> ?pulm edema? Last ECHO 2008 with diastolic dysfunction only, normal EF -lasix 40mg IV x 1 now and then 40mg IV qAM -replace K+ as needed, there is 60 meq in TPN tonight -check routine ECHO Chronic afib - now that is NPO again, rates went very high during NGT placement problems to the 170s, improved on dilt gtt now -continue diltiazem gtt -restart po metoprolol when taking po and then can stop dilt -resume xarelto once clearly not needing any future surgeries and when takin gpo, otherwise can do Heparin gtt when ok with Surgery-still not quite ready to start AC given ongoing ileus HTN, HL-stable -continue dilt gtt -restart metoprolol when taking po -continue to hold losartan and statin until taking po adequately DMII-on glipizide at home. Controlled with HgbA1C 7.3% here -continue SSI, accuchecks low UO - suspect all just relates to SBO and dehydration--resolved - stopped IVFs and now diuresing -follow lithograph designer with diuresis NICOLLE - IVFs - resolved GERD-change to IV Zantac and PPI while NPO DVT proph - due to difficulties with PO w ileus - xarelto still on hold - heparin SQ for now Dispo-continue tele while on dilt gtt
[2017-02-19] MEDS ORDERED: DiphenhydrAMINE HCL 50 MG/ML VIAL IV PRN (21:00)
[2017-02-20] VITALS (8 sets, daily range): BP systolic 113–151; BP diastolic 71–93; PULSE 74–102; TEMP 36.2–36.7; O2SAT 92–96
[2017-02-20] MEDS: INSULIN ASPART 100 UNITS/ML 3 ML PEN SC SCH ×4 (00:11→18:08)
[2017-02-20] MEDS: DILTIAZEM HCL INJ 125 MG in DEXTROSE 5% 100ML IV PRN ×2 (06:09→20:15)
[2017-02-20] MEDS: PIPERACILL/TAZOBAC IV 3.375 GM in DEXTROSE 5% 100ML 100 ML IV SCH ×3 (06:11→21:45)
[2017-02-20 06:27] LABS: HEMATOCRIT 35.2 % (42-52); MEAN CELL VOLUME 88.7 fL (80-100); MEAN CORPUSCULAR HGB CONC 34.9 g/dl (32-36); MEAN PLATELET VOLUME 8.9 fL (7.4-10.4); PLATELET COUNT 247 K/uL (130-400); RED BLOOD COUNT 3.97 M/uL (4.7-6.1); WHITE BLOOD COUNT 8.65 K/uL (4.8-10.8)
[2017-02-20 06:56] LABS: BUN/CREATININE RATIO 14.1 (10-20); CALCIUM 8.2 mg/dl (8.5-10.1); CREATININE 0.95 mg/dl (0.60-1.40); PHOSPHORUS 2.5 mg/dl (2.5-4.9); POTASSIUM 3.2 mmol/L (3.5-5.1)
[2017-02-20] MEDS: PANTOprazole INJ 40 MG in SYRINGE 0 ML IV SCH (08:06)
[2017-02-20] MEDS: HEPARIN SOD 5000 UNIT/0.5 ML CARP SQ SCH ×2 (08:06→20:16)
[2017-02-20] MEDS: RANITIDINE IV 50 MG in DEXTROSE 5% 100ML 100 ML IV SCH ×2 (08:07→15:49)
[2017-02-20] MEDS: FUROSEMIDE INJ 40 MG in SYRINGE 0 ML IV SCH (08:07)
--- NOTE | 2017-02-20 08:07 | Surgery Progress Note ---
Surgery Progress Note Date of Service Feb 20, 2017. Subjective Post OP Day: 9th feeling better Objective Vital Signs: Date Time Temp Pulse Resp B/P (MAP) Pulse Ox O2 Delivery O2 Flow Rate FiO2 02/20/17 07:58 36.7 102 18 151/79 (103) 92 Room Air 02/20/17 04:00 94 Room Air 02/20/17 03:36 36.7 74 20 127/75 (92) 94 Room Air 02/20/17 00:01 Room Air 02/20/17 00:00 36.5 81 20 113/71 (85) 93 Room Air 02/19/17 20:00 Room Air 02/19/17 19:40 36.5 116 20 148/91 (110) 94 Room Air 02/19/17 16:45 Room Air 02/19/17 15:25 36.7 85 20 147/75 (99) 95 Room Air 02/19/17 12:00 Room Air 02/19/17 11:57 36.3 74 18 155/76 (102) 94 Room Air 02/19/17 08:10 36.2 101 18 147/71 (96) 92 Room Air Physical Exam: nasogastric drainage (pulled out again but at 50 cm alon( advanced to 65)) General Appearance: no apparent distress Head: normocephalic Abdomen: + pertinent finding (less distended incision intact fascia intact colostomy with output) Laboratory Results: Results Past 24 Hours Test 02/19/17 14:15 02/19/17 20:25 02/19/17 23:50 02/20/17 06:02 Range/Units Bedside Glucose 235 241 248 209 70-99 mg/dl Test 02/20/17 06:04 Range/Units White Blood Count 8.65 4.8-10.8 K/uL Red Blood Count 3.97 4.7-6.1 M/uL Hemoglobin 12.3 14.0-18.0 g/dL Hematocrit 35.2 42-52 % Mean Corpuscular Volume 88.7 80-100 fL Mean Corpuscular Hemoglobin 31.0 25-34 pg Mean Corpuscular Hemoglobin Concent 34.9 32-36 g/dl RDW Standard Deviation 42.1 36.4-46.3 fL RDW Coefficient of Variation 13.1 11.5-14.5 % Platelet Count 247 130-400 K/uL Mean Platelet Volume 8.9 7.4-10.4 fL Sodium Level 139 136-145 mmol/L Potassium Level 3.2 3.5-5.1 mmol/L Chloride Level 104 98-107 mmol/L Carbon Dioxide Level 25 21-32 mmol/L Anion Gap 10.0 3-11 mmol/L Blood Urea Nitrogen 13 7-18 mg/dl Creatinine 0.95 0.60-1.40 mg/dl Est Creatinine Clear Calc Drug Dose 73.3 ml/min Estimated GFR () 87.9 Estimated GFR (Non- 75.8 BUN/Creatinine Ratio 14.1 10-20 Random Glucose 227 70-99 mg/dl Calcium Level 8.2 8.5-10.1 mg/dl Phosphorus Level 2.5 2.5-4.9 mg/dl Magnesium Level 2.0 1.8-2.4 mg/dl Albumin 2.3 3.4-5.0 gm/dl Assessment & Plan continue with hyper al for now do not clamp ng tube repeat kub in am
[2017-02-20] MEDS: METOPROLOL TARTRATE 50 MG TAB PO SCH ×2 (08:08→20:16)
--- NOTE | 2017-02-20 08:10 | DIAGNOSTIC IMAGING REPORT ---
CHEST ONE VIEW PORTABLE CLINICAL HISTORY: NGT in place, Cough, CHF, Pulm Edema? COMPARISON STUDY: 02/18/2017 FINDINGS: There is a right-sided PICC catheter and nasogastric tube. The cardiac and mediastinal contours remain stable. There is blunting of both lateral costophrenic angles. There are persistent right basal airspace opacities, atelectatic versus inflammatory. There is no current evidence of congestive failure IMPRESSION: 1. Stable right basilar airspace opacities, atelectatic versus inflammatory 2. Blunting of both lateral costophrenic angle suggesting small effusions 3. No current evidence of congestive heart failure. Electronically signed by: Dionicio Montes De Oca M.D. 02/20/2017 8:08 AM Dictated Date/Time: 02/20/2017 8:06 AM
--- NOTE | 2017-02-20 09:31 | ECHOCARDIOGRAM REPORT ---
*NOTICE TO RECEIVING LIBERTARIAN AGENCY This information is strictly Confidential and protected under [place] law. [place] law prohibits you from making any further disclosure of this information unless further disclosure is expressly permitted by the written consent of the person to whom it pertains or is authorized by law. A general authorization for the release of medical or other information is not sufficient for this purpose. Hospital accepts no responsibility if the information is made available to any other person, INCLUDING THE PATIENT. Interpretation Summary * Name: YOEL RAMACHANDRAN Study Date: 02/20/2017 06:51 AM BP: 127/75 mmHg * Patient Location: C.2T\S\E222\S\1 HR: 88 * : 1935 (M/d/yyyy) Gender: Male Height: 71 in * Age: 81 yrs Ethnicity: CA Weight: 207 lb * Ordering Physician: Analilia Martinez * Referring Physician: Self, Referred * Performed By: Stew Vaughn RCS * * Reason For Study: CHF * BSA: 2.1 m2 * -- Conclusions -- * The left ventricle is mildly dilated. * There is normal left ventricular wall thickness. * Ejection Fraction = 60-65%. * Left ventricular systolic function is normal. * I can not exclude hypokinesis of the distal anterior and distal anterolateral moore. * The RV is dilated with normal RV function. * The left atrium is severely dilated. * The right atrium is severely dilated. * Aortic valve sclerosis mild, without significant aortic valvular stenosis. * There is moderate mitral regurgitation. * PA pressure 40 mm/hg * Diastolic dysfunction, Grade II, consistent with elevated left atrial pressure. Procedure Details * Left Ventricle The left ventricle is mildly dilated. There is normal left ventricular wall thickness. Ejection Fraction = 60-65%. Left ventricular systolic function is normal. I can not exclude hypokinesis of the distal anterior and distal anterolateral moore. * Right Ventricle The RV is dilated with normal RV function. * Atria The left atrium is severely dilated. The right atrium is severely dilated. * Mitral Valve There is moderate mitral annular calcification. There is moderate mitral regurgitation. * Tricuspid Valve The tricuspid valve is not well visualized, but is grossly normal. There is mild tricuspid regurgitation. PA pressure 40 mm/hg * Aortic Valve Aortic valve sclerosis mild, without significant aortic valvular stenosis. No aortic regurgitation is present. * Pulmonic Valve The pulmonic valve is not well visualized. * Great Vessels The aortic root is normal size. There is aortic root sclerosis/calcification. * Pericardium/Pleural There is no pericardial effusion. * Great Vessels Normal inferior vena cava size and collapsability with sniff indicates a normal right atrial pressure of 3 mmHg * Left Ventricular Diastolic Function Diastolic dysfunction, Grade II, consistent with elevated left atrial pressure. * * MMode 2D Measurements and Calculations * IVSd 0.93 cm * * LVIDd 5.7 cm * LVIDs 3.7 cm * LVPWd 1.2 cm * * IVS/LVPW 0.79 * FS 35.5 % * EDV(Teich) 158.1 ml * ESV(Teich) 56.4 ml * EF(Teich) 64.3 % * * EDV(cubed) 182.2 ml * ESV(cubed) 48.8 ml * EF(cubed) 73.2 % * * LV mass(C)d 241.3 grams * LV mass(C)dI 112.8 grams/m\S\2 * * SV(Teich) 101.6 ml * SI(Teich) 47.5 ml/m\S\2 * SV(cubed) 133.4 ml * SI(cubed) 62.3 ml/m\S\2 * * Ao root diam 3.4 cm * Ao root area 8.9 cm\S\2 * * LVOT diam 2.2 cm * LVOT area 3.8 cm\S\2 * * LVAd ap4 31.6 cm\S\2 * LVLd ap4 8.2 cm * EDV(MOD-sp4) 101.2 ml * EDV(sp4-el) 103.8 ml * LVAs ap4 16.8 cm\S\2 * LVLs ap4 6.6 cm * ESV(MOD-sp4) 38.7 ml * ESV(sp4-el) 36.3 ml * EF(MOD-sp4) 61.8 % * EF(sp4-el) 65.0 % * * LVAd ap2 30.5 cm\S\2 * LVLd ap2 8.1 cm * EDV(MOD-sp2) 93.8 ml * EDV(sp2-el) 96.7 ml * LVAs ap2 18.3 cm\S\2 * LVLs ap2 6.9 cm * ESV(MOD-sp2) 44.1 ml * ESV(sp2-el) 41.5 ml * EF(MOD-sp2) 53.0 % * EF(sp2-el) 57.1 % * * LVLd %diff -0.55 % * EDV(MOD-bp) 98.4 ml * LVLs %diff 4.6 % * ESV(MOD-bp) 41.9 ml * EF(MOD-bp) 57.4 % * * SV(MOD-sp4) 62.5 ml * SI(MOD-sp4) 29.2 ml/m\S\2 * * SV(MOD-sp2) 49.7 ml * SI(MOD-sp2) 23.2 ml/m\S\2 * * SV(MOD-bp) 56.5 ml * SI(MOD-bp) 26.4 ml/m\S\2 * * SV(sp4-el) 67.5 ml * SI(sp4-el) 31.6 ml/m\S\2 * * SV(sp2-el) 55.2 ml * SI(sp2-el) 25.8 ml/m\S\2 * * * Doppler Measurements and Calculations * MV dec time 0.19 sec * * Ao V2 max 147.2 cm/sec * Ao max PG 8.7 mmHg * Ao max PG (full) 5.6 mmHg * DEB(V,A) 2.2 cm\S\2 * DEB(V,D) 2.2 cm\S\2 * * LV V1 max PG 3.0 mmHg * * LV V1 max 86.1 cm/sec * *
[2017-02-20] MEDS ORDERED: NURSING VERBAL MED ORDER ONE ×2 (10:30)
[2017-02-20] MEDS: POTASSIUM CHLR 10MEQ / WTR IV SCH ×4 (10:57→14:27)
[2017-02-20] MEDS ORDERED: CUSTOM CENTRAL PN 1 BAG IV SCH (16:00)
--- NOTE | 2017-02-20 21:51 | Progress Note ---
Subjective Date of Service: Feb 20, 2017. Subjective Pt evaluation today including: conversation w/ patient, conversation w/ family , physical exam, chart review, lab review, review of studies, conversation w/ outreach consultant, review of inpatient medication list Pain: no pain reported Voiding: pond catheter in place Pt is seen and examined by me. Pt states he feels much better today swelling mprove in the testicular area as well as bilateral legs Pt son is present in the room. Pt sates he is passing gas and some liquid stool in the colostomy. NGT is intact. Pt denies Cp, ob, dizziness, palpitation, fever, chills, rigors and sweats. Problem List Medical Problems: (1) Small bowel obstruction Status: Acute Review of Systems All Other Systems: Reviewed and Negative Medications Medications (Trade) Dose Ordered Sig/Oscar Route Start Time Stop Time Status Last Admin Dose Admin Furosemide 40 mg/ Syringe 4 ml @ 4 mls/min QAM IV 02/20/17 09:00 03/22/17 08:59 02/20/17 08:07 4 MLS/MIN Potassium Chloride 10 meq/ Prmx 100 ml @ 100 mls/hr Q1H IV 02/20/17 10:30 02/20/17 14:29 DC 02/20/17 14:27 100 MLS/HR Nutrition (Parenteral) 0 ml @ 0 mls/hr TODAY@1600 IV 02/20/17 16:00 02/21/17 15:59 02/20/17 15:54 76.3 MLS/HR Objective Vital Signs Date Time Temp Pulse Resp B/P (MAP) Pulse Ox O2 Delivery O2 Flow Rate FiO2 02/20/17 19:29 36.2 94 20 144/93 (110) 96 Room Air 02/20/17 16:00 Room Air 02/20/17 16:00 36.7 93 18 136/84 (101) 94 Room Air 02/20/17 12:00 Room Air 02/20/17 11:30 36.6 74 16 133/74 (93) 95 Room Air 02/20/17 08:00 Room Air 02/20/17 07:58 36.7 102 18 151/79 (103) 92 Room Air 02/20/17 04:00 94 Room Air 02/20/17 03:36 36.7 74 20 127/75 (92) 94 Room Air 02/20/17 00:01 Room Air 02/20/17 00:00 36.5 81 20 113/71 (85) 93 Room Air Physical Exam Comments: General Appearance: WD/WN, no apparent distress Eyes: normal inspection, sclerae normal, + pertinent finding (NGT in place) ENT: hearing grossly normal, + pertinent finding (erythema in posterior OP) Neck: trachea midline Respiratory/Chest: no respiratory distress, no accessory muscle use, + crackles (very coarse at bases and middle lung ness bilat, +wheezing in lower lung ness) Cardiovascular: + tachycardia (mild), + irregularly irregular, + pertinent finding (2-3+ pitting edema in legs to knees, 1+ in thighs and scrotum with edema as well) Abdomen: soft (with abd binder in place, colostomy bag with gas in it, no stool or liquid, nontender) Extremities: no calf tenderness, + swelling (as above) 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: alert, normal mood/affect, oriented x 3 Skin: normal color, warm/dry, no rash Laboratory Results Last 24 Hours Test 02/19/17 23:50 02/20/17 06:02 02/20/17 06:04 02/20/17 11:56 Bedside Glucose 248 mg/dl 209 mg/dl 251 mg/dl White Blood Count 8.65 K/uL Red Blood Count 3.97 M/uL Hemoglobin 12.3 g/dL Hematocrit 35.2 % Mean Corpuscular Volume 88.7 fL Mean Corpuscular Hemoglobin 31.0 pg Mean Corpuscular Hemoglobin Concent 34.9 g/dl RDW Standard Deviation 42.1 fL RDW Coefficient of Variation 13.1 % Platelet Count 247 K/uL Mean Platelet Volume 8.9 fL Sodium Level 139 mmol/L Potassium Level 3.2 mmol/L Chloride Level 104 mmol/L Carbon Dioxide Level 25 mmol/L Anion Gap 10.0 mmol/L Blood Urea Nitrogen 13 mg/dl Creatinine 0.95 mg/dl Est Creatinine Clear Calc Drug Dose 73.3 ml/min Estimated GFR () 87.9 Estimated GFR (Non- 75.8 BUN/Creatinine Ratio 14.1 Random Glucose 227 mg/dl Calcium Level 8.2 mg/dl Phosphorus Level 2.5 mg/dl Magnesium Level 2.0 mg/dl Albumin 2.3 gm/dl Test 02/20/17 17:57 Bedside Glucose 219 mg/dl Assessment and Plan Pt is a 81 yo male with a h/o colon CA and colostomy since 1978, here with SBO requiring RAYMUNDO. Now with post-op ileus. 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 , NGT has been placed and fallen out accidentally multiple time. Trial of clears on 02/17 resulted in N/V and worsening abd distension despite gas and stool in bag. Took numerous attempts and nasal trauma to get NGT back into place over a 6 hour period on 02/17, finally successful and had drainage of 1250 mL brown liquid- drainage has slowed down significantly as of today Prealbumin low at 9, lyte abnormalities, started TPN on 02/18 and continue for now , per surgery no oral feeding. Added potassium to TPN. AAS with some possible free air under diaphragm but expected given recent surgery Ileus seems to be resolving but would NOT remove NGT until absolutely sure ileus resolved given great difficulty in placing it - continue NGT to LIS - continue supportive care - follow electrolytes and replace in TPN and separately as needed - PICC line placed and continue TPN -Appreciate Surgical management -continue pain meds prn but avoid benzos and opioids Acute on chronic diastolic CHF- now +13L this stay and with significant rales on exam, LE edema, scrotal edema. This may actually be contributing to the frothy secretions in his throat--> ?pulm edema? Last ECHO 2008 with diastolic dysfunction only, normal EF -lasix 40mg IV x 1 now and then 40mg IV qAM -replace K+ as needed, 2D-ECHO * The left ventricle is mildly dilated. * There is normal left ventricular wall thickness. * Ejection Fraction = 60-65%. * Left ventricular systolic function is normal. * I can not exclude hypokinesis of the distal anterior and distal anterolateral moore. * The RV is dilated with normal RV function. * The left atrium is severely dilated. * The right atrium is severely dilated. * Aortic valve sclerosis mild, without significant aortic valvular stenosis. * There is moderate mitral regurgitation. * PA pressure 40 mm/hg Diastolic dysfunction, Grade II, consistent with elevated left atrial pressure Chronic afib - now that is NPO again, rates went very high during NGT placement problems to the 170s, improved on dilt gtt now -continue diltiazem gtt -restart po metoprolol when taking po and then can stop dilt -resume xarelto once clearly not needing any future surgeries and when taking po, otherwise can do Heparin gtt when ok with Surgery-still not quite ready to start AC given ongoing ileus HTN, HL-stable -continue dilt gtt -restart metoprolol when taking po -continue to hold losartan and statin until taking po adequately DMII-on glipizide at home. 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
[2017-02-21] VITALS (11 sets, daily range): BP systolic 118–153; BP diastolic 52–89; PULSE 68–104; TEMP 36.2–36.6; O2SAT 93–96
[2017-02-21] MEDS: RANITIDINE IV 50 MG in DEXTROSE 5% 100ML 100 ML IV SCH ×3 (00:13→15:57)
[2017-02-21] MEDS: INSULIN ASPART 100 UNITS/ML 3 ML PEN SC SCH ×4 (00:18→18:17)
[2017-02-21 04:47] LABS: BUN/CREATININE RATIO 19.2 (10-20); CALCIUM 8.3 mg/dl (8.5-10.1); CREATININE 0.9 mg/dl (0.60-1.40); MAGNESIUM 1.9 mg/dl (1.8-2.4); POTASSIUM 3.5 mmol/L (3.5-5.1)
[2017-02-21] MEDS: PIPERACILL/TAZOBAC IV 3.375 GM in DEXTROSE 5% 100ML 100 ML IV SCH ×3 (06:09→23:06)
--- NOTE | 2017-02-21 07:58 | Surgery Progress Note ---
Surgery Progress Note Date of Service Feb 21, 2017. Subjective Post OP Day: 11 th pod s/p lyses of adhesion closure enterotomy feels much better no pain colostomy working ng output dec immobilizing fluids lab noted Objective Vital Signs: Date Time Temp Pulse Resp B/P (MAP) Pulse Ox O2 Delivery O2 Flow Rate FiO2 02/21/17 07:50 36.2 104 16 130/52 (78) 95 Room Air 02/21/17 04:00 Room Air 02/21/17 03:48 36.5 82 20 153/83 (106) 96 Room Air 02/20/17 23:59 Room Air 02/20/17 23:54 36.2 90 18 149/91 (110) 95 Room Air 02/20/17 20:00 Room Air 02/20/17 19:29 36.2 94 20 144/93 (110) 96 Room Air 02/20/17 16:00 Room Air 02/20/17 16:00 36.7 93 18 136/84 (101) 94 Room Air 02/20/17 12:00 Room Air 02/20/17 11:30 36.6 74 16 133/74 (93) 95 Room Air 02/20/17 08:00 Room Air 02/20/17 07:58 36.7 102 18 151/79 (103) 92 Room Air General Appearance: no apparent distress Respiratory/Chest: lungs clear Abdomen: non tender, soft Incision(s): clean, dry Laboratory Results: Results Past 24 Hours Test 02/20/17 11:56 02/20/17 17:57 02/20/17 23:50 02/21/17 04:07 Range/Units Bedside Glucose 251 219 188 70-99 mg/dl Sodium Level 138 136-145 mmol/L Potassium Level 3.5 3.5-5.1 mmol/L Chloride Level 105 98-107 mmol/L Carbon Dioxide Level 28 21-32 mmol/L Anion Gap 5.0 3-11 mmol/L Blood Urea Nitrogen 17 7-18 mg/dl Creatinine 0.90 0.60-1.40 mg/dl Est Creatinine Clear Calc Drug Dose 77.4 ml/min Estimated GFR () 93.8 Estimated GFR (Non- 80.9 BUN/Creatinine Ratio 19.2 10-20 Random Glucose 174 70-99 mg/dl Calcium Level 8.3 8.5-10.1 mg/dl Phosphorus Level 3.0 2.5-4.9 mg/dl Magnesium Level 1.9 1.8-2.4 mg/dl Test 02/21/17 05:38 Range/Units Bedside Glucose 178 70-99 mg/dl Assessment & Plan 02/21/17 will dc ng tube check kub start H2O intake suspect pt has resolved his ileus and will go slow with starting oral intake 02/20/17 continue with hyper al for now do not clamp ng tube repeat kub in am continue with hyper al for now do not clamp ng tube repeat kub in am
[2017-02-21] MEDS: FUROSEMIDE INJ 40 MG in SYRINGE 0 ML IV SCH (08:24)
[2017-02-21] MEDS: METOPROLOL TARTRATE 50 MG TAB PO SCH ×2 (08:24→21:53)
[2017-02-21] MEDS: HEPARIN SOD 5000 UNIT/0.5 ML CARP SQ SCH ×2 (08:36→21:55)
--- NOTE | 2017-02-21 09:16 | DIAGNOSTIC IMAGING REPORT ---
PA CHEST WITH ABDOMINAL SERIES CLINICAL HISTORY: Follow-up bowel obstruction. FINDINGS: A PA chest radiograph is compared to study dated 02/20/2017. The examination is degraded by patient rotation. A right PICC line is unchanged in position. The heart is enlarged and there is atherosclerotic calcification of the thoracic aorta. The pulmonary vasculature is noncongested. There are trace pleural effusions with bibasilar atelectasis. No pneumothorax is seen. The skeletal structures are osteopenic. The bony thorax is grossly intact. Supine and erect abdominal radiographs are compared to study dated 02/17/2017 and correlated with abdominal CT dated 02/10/2017. An enteric tube projects over the proximal stomach. Skin clips project over the pelvis. There are distended and gas-filled loops of small bowel, which appears modestly improved from 02/17/2017. Gas is present within the colon. Skin clips project over the lower abdomen. No intraperitoneal free air is seen. There are no abnormal abdominal calcifications. The lumbosacral spine and bony pelvis appear intact. A right hip arthroplasty is in place. IMPRESSION: 1. Cardiomegaly without radiographic evidence of congestive failure. 2. Small pleural effusions with bibasilar atelectasis. 3. There are mildly distended and gas-filled loops of small bowel which appears modestly improved from previous. This likely represents ileus given recent surgery. Clinical correlation will be required. Electronically signed by: Behzad Bradley M.D. 02/21/2017 9:15 AM Dictated Date/Time: 02/21/2017 9:10 AM
--- NOTE | 2017-02-21 10:19 | Progress Note ---
Subjective Date of Service: Feb 21, 2017. Subjective Pt evaluation today including: conversation w/ patient, physical exam, chart review, lab review, review of inpatient medication list Pain: no pain reported PO Intake: NPo for now, however we will start h2o and liquis as per surgery Voiding: no voiding problems, no incontinence Pt denies cp, sob, dizziness, palpitation , and LOC. Pt states he feel much better. Pt has liquid stool start to formed in colostomy bag.Pt denies fever, chills, rigors and sweats.Pt c/o of fatigue and denies any motor weakness any limbs. Pt denies blurry vision and headache. Problem List Medical Problems: (1) Small bowel obstruction Status: Acute Review of Systems All Other Systems: Reviewed and Negative Medications Medications (Trade) Dose Ordered Sig/Oscar Route Start Time Stop Time Status Last Admin Dose Admin Potassium Chloride 10 meq/ Prmx 100 ml @ 100 mls/hr Q1H IV 02/20/17 10:30 02/20/17 14:29 DC 02/20/17 14:27 100 MLS/HR Nutrition (Parenteral) 0 ml @ 0 mls/hr TODAY@1600 IV 02/20/17 16:00 02/21/17 15:59 02/20/17 15:54 76.3 MLS/HR Objective Vital Signs Date Time Temp Pulse Resp B/P (MAP) Pulse Ox O2 Delivery O2 Flow Rate FiO2 02/21/17 07:50 36.2 104 16 130/52 (78) 95 Room Air 02/21/17 04:00 Room Air 02/21/17 03:48 36.5 82 20 153/83 (106) 96 Room Air 02/20/17 23:59 Room Air 02/20/17 23:54 36.2 90 18 149/91 (110) 95 Room Air 02/20/17 20:00 Room Air 02/20/17 19:29 36.2 94 20 144/93 (110) 96 Room Air 02/20/17 16:00 Room Air 02/20/17 16:00 36.7 93 18 136/84 (101) 94 Room Air 02/20/17 12:00 Room Air 02/20/17 11:30 36.6 74 16 133/74 (93) 95 Room Air Physical Exam Comments: General Appearance: WD/WN, no apparent distress Eyes: normal inspection, sclerae normal, + pertinent finding (NGT in place) ENT: hearing grossly normal, + pertinent finding (erythema in posterior OP) Neck: trachea midline Respiratory/Chest: no respiratory distress, no accessory muscle use, +wheezing in right lower as well as upper lung ness) Cardiovascular: + tachycardia (mild), + irregularly irregular, + pertinent finding (trace pitting edema in legs and feet, thighs and scrotum edema improved ) Abdomen: soft (with abd binder in place, colostomy bag with stool which is liquid, nontender) Extremities: no calf tenderness, + swelling (as above) 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: alert, normal mood/affect, oriented x 3 Skin: normal color, warm/dry, no rash Laboratory Results Last 24 Hours Test 02/20/17 11:56 02/20/17 17:57 02/20/17 23:50 02/21/17 04:07 Bedside Glucose 251 mg/dl 219 mg/dl 188 mg/dl Sodium Level 138 mmol/L Potassium Level 3.5 mmol/L Chloride Level 105 mmol/L Carbon Dioxide Level 28 mmol/L Anion Gap 5.0 mmol/L Blood Urea Nitrogen 17 mg/dl Creatinine 0.90 mg/dl Est Creatinine Clear Calc Drug Dose 77.4 ml/min Estimated GFR () 93.8 Estimated GFR (Non- 80.9 BUN/Creatinine Ratio 19.2 Random Glucose 174 mg/dl Calcium Level 8.3 mg/dl Phosphorus Level 3.0 mg/dl Magnesium Level 1.9 mg/dl Test 02/21/17 05:38 Bedside Glucose 178 mg/dl Assessment and Plan Pt is a 81 yo male with a h/o colon CA and colostomy since 1978, here with SBO requiring RAYMUNDO. Now with post-op ileus. 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 , NGT has been placed and fallen out accidentally multiple time. Trial of clears on 02/17 resulted in N/V and worsening abd distension despite gas and stool in bag. Took numerous attempts and nasal trauma to get NGT back into place over a 6 hour period on 02/17, finally successful and had drainage of 1250 mL brown liquid- drainage has slowed down significantly as of today Prealbumin low at 9, lyte abnormalities, started TPN on 02/18 and continue for now , per surgery no oral feeding. Added potassium to TPN. AAS with some possible free air under diaphragm but expected given recent surgery Ileus seems to be resolving but would NOT remove NGT until absolutely sure ileus resolved given great difficulty in placing it - will DC NGT today, introduce H2o first and than clear liquid diet. KUB showed improved ileus which correlates with clinical findings. - follow electrolytes and replace in TPN and separately as needed - PICC line placed and continue TPN - Appreciate Surgical management - continue pain meds prn but avoid benzos and opioids as well as antihistamines Acute on chronic diastolic CHF- now +13L this stay and with significant rales on exam, LE edema, scrotal edema. This may actually be contributing to the frothy secretions in his throat--> ?pulm edema? Last ECHO 2008 with diastolic dysfunction only, normal EF -lasix 40mg IV x 1 now and then 40mg IV qAM -replace K+ as needed, 2D-ECHO * The left ventricle is mildly dilated. * There is normal left ventricular wall thickness. * Ejection Fraction = 60-65%. * Left ventricular systolic function is normal. * I can not exclude hypokinesis of the distal anterior and distal anterolateral moore. * The RV is dilated with normal RV function. * The left atrium is severely dilated. * The right atrium is severely dilated. * Aortic valve sclerosis mild, without significant aortic valvular stenosis. * There is moderate mitral regurgitation. * PA pressure 40 mm/hg Diastolic dysfunction, Grade II, consistent with elevated left atrial pressure -Chronic afib - now that is NPO again, rates went very high during NGT placement problems to the 170s, improved on dilt gtt now -continue diltiazem gtt, however try to titrate, which was unsuccessful and went back up on 10mg/hr secondary to Rapid rate. -cardiology input appreciated -restart po metoprolol when taking po and then can stop dilt -resume xarelto once clearly not needing any future surgeries and when taking po , otherwise can do Heparin gtt when ok with Surgery-still not quite ready to start AC given ongoing ileus HTN, HL-stable -continue dilt gtt -restart metoprolol when taking po -continue to hold losartan and statin until taking po adequately DMII-on glipizide at home. 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
[2017-02-21 10:46] LABS: BASO % 0.3 %; BASO ABS # 0.03 K/uL (0-0.2); COMPLETE YES; EOS % 2.8 %; HEMATOCRIT 38.7 % (42-52); IG% 1.1 %; LYMPH % 7.6 %; LYMPH ABS # 0.86 K/uL (1.2-3.4); MEAN CORPUSCULAR HEMOGLOBIN 31.5 pg (25-34); MEAN CORPUSCULAR HGB CONC 35.4 g/dl (32-36); MEAN PLATELET VOLUME 8.8 fL (7.4-10.4); MONO % 7.2 %; PLATELET COUNT 290 K/uL (130-400); RED BLOOD COUNT 4.35 M/uL (4.7-6.1); WHITE BLOOD COUNT 11.27 K/uL (4.8-10.8)
--- NOTE | 2017-02-21 11:17 | Cardiology Consultation ---
Cardiology Consultation Date of Consultation: Feb 21, 2017. Requesting Physician: Geovanna Attending Physician: Bee for Dr Patel who is the primary veterinary medical officer Pt evaluation today including: conversation w/ patient, chart review, lab review, review of studies History of Present Illness This is a very pleasant 81-year-old gentleman who was admitted to [facility] on 02/10/2017 with small bowel obstruction. His EKG upon admission revealed atrial flutter with a controlled ventricular response and a chronic right bundle branch block. With his small bowel obstruction he ultimately needed to go to the operating room for lysis of adhesions. He remained on beta blockers with reasonable rate control. Yesterday he had increasing abdominal symptoms and nausea. An NG tube was attempted to be placed. According to the patient took 10 separate tries in order to pass the NG tube. With that he had atrial fibrillation with a rapid ventricular response that has remained more difficult to control. He was placed on a diltiazem drip currently at 10 mg per hour with adequate rate control. Additionally he is remained on metoprolol 50 mg twice a day The NG tube has currently been removed. He will be starting clear liquids today. He is unaware of any palpitations or fluttering wall currently in atrial fibrillation. He describes some mild shortness of breath but does not appear to be visibly dyspneic. He has some mild abdominal distention and he has lower extremity edema. He notes the lower extremity edema is significantly improved compared to the immediate postoperative period. He denies any chest pain chest pressure chest heaviness. He has a lightheadedness dizziness presyncope syncope. He denies any fevers or chills or sweats. He notes with narcotics and anesthesia he had hallucinations and vivid nightmares. Those episodes have resolved. He has been followed chronically for his paroxysmal atrial fibrillation and paroxysmal atrial flutter. In the past he has had increasing shortness of breath associated with periods of atrial flutter and ultimately underwent a cardioversion in May 2016. He has remained on metoprolol and several toe since the procedure. The rest of the complete review of systems is otherwise negative Past Medical/Surgical History (1) Small bowel obstruction (2) Colon cancer (3) Atrial fibrillation 1. Paroxysmal atrial fibrillation and paroxysmal atrial flutter 2. External cardioversion 06/24 2016 3. Chronic right bundle-branch block 4. Dyspnea on exertion associated with atrial flutter 5. Hypertension 6. Diabetes mellitus type 2 7. Hyperlipidemia 8. Chronic anticoagulation with Xarelto Family History Cancer Hypertension Social History Smoking Status: Former Smoker History of Alcohol Use: Yes (1-2 GLASSES OF WINE DAILY) Review of Systems Respiratory: No shortness of breath Cardiac: No chest pain All Other Systems: Reviewed and Negative Allergies Coded Allergies: Tetanus Toxoid (Verified Allergy, Unknown, 02/10/17) Medications Current Inpatient Medications Medications (Trade) Dose Ordered Sig/Oscar Route Start Time Stop Time Status Last Admin Dose Admin Ondansetron HCl (Zofran Inj) 4 mg Q6H PRN IV 02/10/17 15:45 03/12/17 15:44 02/17/17 11:02 4 MG Glucose (Glucose Chew Tab) 4-8 Tablets 4 Tabl... UD PRN PO 02/10/17 15:45 03/12/17 15:44 Dextrose (Dextrose 50% 50ML Syringe) 25-50ML OF 50% DW IV FOR... UD PRN IV 02/10/17 15:45 03/12/17 15:44 Glucose (Glucose 40% Gel) 15-30 GRAMS 15 GRAMS... UD PRN PO 02/10/17 16:15 03/12/17 16:14 Glucagon (Glucagon Inj) 1 mg UD PRN SQ 02/10/17 16:15 03/12/17 16:14 Hydralazine HCl (HydrALAZINE INJ) 10 mg Q4H PRN IV 02/10/17 18:00 03/12/17 17:59 02/10/17 23:47 10 MG Lorazepam (Ativan Inj) 1 mg Q8H PRN IV 02/11/17 21:45 03/13/17 21:44 02/15/17 23:43 1 MG Calcium Carbonate (Tums Chew Tab) 1,000 mg QID PRN PO 02/13/17 03:45 03/15/17 03:44 02/13/17 07:50 1,000 MG Al Hydroxide/Mg Hydroxide (Maalox Susp) 30 ml Q6H PRN PO 02/13/17 10:00 03/15/17 09:59 02/17/17 13:57 30 ML Lidocaine HCl (Viscous Lidocaine 2% Soln) 20 ml Q6 PRN PO 02/13/17 10:00 03/15/17 09:59 Heparin Sodium (Porcine) (Heparin Sq 5000 Unit/0.5ml) 5,000 unit Q12 SQ 02/13/17 21:00 03/15/17 20:59 02/21/17 08:36 5,000 UNIT Menthol (Nice Berkley) 1 berkley PRN PRN PO 02/15/17 07:30 03/17/17 07:29 Pantoprazole Sodium 40 mg/ Syringe 10 ml @ 5 mls/min DAILY@11 IV 02/15/17 11:00 03/17/17 10:59 02/20/17 08:06 5 MLS/MIN Ranitidine HCl 50 mg/Dextrose 102 ml @ 200 mls/hr Q8H IV 02/15/17 08:00 03/17/17 07:59 02/21/17 09:33 200 MLS/HR Levalbuterol (Xopenex 0.63 Mg/ 3 Ml Neb) 0.63 mg Q6R PRN INH 02/15/17 11:30 03/17/17 11:29 Metoprolol Tartrate (Lopressor Iv) 5 mg Q6 PRN IV 02/16/17 08:00 03/17/17 11:59 02/17/17 21:03 5 MG Metoprolol Tartrate (Lopressor Tab) 50 mg BID PO 02/16/17 09:00 03/18/17 08:59 02/21/17 08:24 50 MG Acetaminophen (Tylenol Tab) 650 mg Q6H PRN PO 02/16/17 09:45 03/18/17 09:44 02/16/17 10:31 650 MG Oxycodone/ Acetaminophen (Percocet 5-325mg Tab) 1 tab Q4H PRN PO 02/17/17 06:00 03/03/17 05:59 Fentanyl Citrate (Fentanyl Inj) 50 mcg Q1H PRN IV 02/17/17 15:15 03/03/17 15:14 Insulin Aspart (novoLOG ASPART) SLIDING SCALE If C... Q6 SC 02/18/17 00:00 03/20/17 00:00 02/21/17 06:08 2 UNITS Oxymetazoline HCl (Afrin 0.05% Nasal [place]) 2 sprays Q12H PRN SUNG 02/17/17 21:30 03/19/17 21:29 02/18/17 14:14 2 SPRAYS Piperacillin Sod/ Tazobactam Sod 3.375 gm/Dextrose 115 ml @ 28.75 mls/ hr Q8H IV 02/18/17 14:00 02/28/17 13:59 02/21/17 06:09 28.75 MLS/HR Heparin Sodium (Porcine) (Heparin 10 Unit/ ml 5 ml Flush) 5 ml PRN PRN FLUSH 02/18/17 08:30 03/20/17 08:29 Piperacillin Sod/ Tazobactam Sod (Consult) 1 ea UD PRN N/A 02/18/17 08:45 03/20/17 08:44 Miscellaneous Information (Pharmacy Tpn/ Ppn Consult Active) 1 ea UD PRN N/A 02/18/17 09:45 03/20/17 09:44 Dextrose 1,000 ml @ 0 mls/hr Q0M PRN IV 02/18/17 13:09 03/20/17 13:08 Diphenhydramine HCl (Benadryl Inj) 12.5 mg HS PRN IV 02/19/17 21:00 03/21/17 20:59 02/19/17 23:05 12.5 MG Furosemide 40 mg/ Syringe 4 ml @ 4 mls/min QAM IV 02/20/17 09:00 03/22/17 08:59 02/21/17 08:24 4 MLS/MIN Nutrition (Parenteral) 0 ml @ 0 mls/hr TODAY@1600 IV 02/20/17 16:00 02/21/17 15:59 02/20/17 15:54 76.3 MLS/HR Nutrition (Parenteral) 0 ml @ 0 mls/hr TODAY@1600 IV 02/21/17 16:00 02/22/17 15:59 Physical Exam Vital Signs Past 12 Hours Date Time Temp Pulse Resp B/P (MAP) Pulse Ox O2 Delivery O2 Flow Rate FiO2 02/21/17 08:01 95 Room Air 02/21/17 07:50 36.2 104 16 130/52 (78) 95 Room Air 02/21/17 04:00 Room Air 02/21/17 03:48 36.5 82 20 153/83 (106) 96 Room Air 02/20/17 23:59 Room Air 02/20/17 23:54 36.2 90 18 149/91 (110) 95 Room Air Constitutional: General Apperance: heathly-appearing, well-nourished Level of Distress: acutely ill Psychiatric: Mental Status: active & alert, normal mood Lungs: Respiratory effort: no dyspnea Auscultation: no wheezing, no rales/crackles, no rhonchi, decreased breath sounds (orozco b/l) Cardiovascular: Heart Auscultation: no murmurs, no rubs, irregular rate rhythm Abdomen: Bowel Sounds: diminished Inspection & Palpation: soft, distended (mild diffude tenderness) Extremities: edema Data Laboratory Results: Last 24 Hours Test 02/20/17 11:56 02/20/17 17:57 02/20/17 23:50 02/21/17 04:07 Bedside Glucose 251 mg/dl 219 mg/dl 188 mg/dl Sodium Level 138 mmol/L Potassium Level 3.5 mmol/L Chloride Level 105 mmol/L Carbon Dioxide Level 28 mmol/L Anion Gap 5.0 mmol/L Blood Urea Nitrogen 17 mg/dl Creatinine 0.90 mg/dl Est Creatinine Clear Calc Drug Dose 77.4 ml/min Estimated GFR () 93.8 Estimated GFR (Non- 80.9 BUN/Creatinine Ratio 19.2 Random Glucose 174 mg/dl Calcium Level 8.3 mg/dl Phosphorus Level 3.0 mg/dl Magnesium Level 1.9 mg/dl Test 02/21/17 05:38 02/21/17 10:36 Bedside Glucose 178 mg/dl White Blood Count 11.27 K/uL Red Blood Count 4.35 M/uL Hemoglobin 13.7 g/dL Hematocrit 38.7 % Mean Corpuscular Volume 89.0 fL Mean Corpuscular Hemoglobin 31.5 pg Mean Corpuscular Hemoglobin Concent 35.4 g/dl Platelet Count 290 K/uL Mean Platelet Volume 8.8 fL Neutrophils (%) (Auto) 81.0 % Lymphocytes (%) (Auto) 7.6 % Monocytes (%) (Auto) 7.2 % Eosinophils (%) (Auto) 2.8 % Basophils (%) (Auto) 0.3 % Neutrophils # (Auto) 9.13 K/uL Lymphocytes # (Auto) 0.86 K/uL Monocytes # (Auto) 0.81 K/uL Eosinophils # (Auto) 0.32 K/uL Basophils # (Auto) 0.03 K/uL RDW Standard Deviation 43.0 fL RDW Coefficient of Variation 13.1 % Immature Granulocyte % (Auto) 1.1 % Immature Granulocyte # (Auto) 0.12 K/uL Imaging: Obstruction series reviewed EKG: EKG in 02/17/2017 atrial fibrillation with rapid ventricular response right bundle-branch block and left posterior fascicular block EKG from admission atrial flutter with a controlled ventricular response 80 bpm PVCs right bundle-branch block left posterior fascicular block echo: Echocardiogram normal LV size and function, dilated right ventricle normal RV function, severe biatrial enlargement, type II diastolic dysfunction, Assessment & Plan 1. Paroxysmal atrial fibrillation and paroxysmal atrial flutter 2. External cardioversion 06/24 2016 3. Chronic right bundle-branch block 4. Dyspnea on exertion associated with atrial flutter 5. Hypertension 6. Diabetes mellitus type 2 7. Hyperlipidemia 8. Chronic anticoagulation with Xarelto 9. Volume overloaded next 10. Status post lysis of adhesions for small bowel obstruction this admission I would continue with the diltiazem drip to control his heart rate. He can continue with oral beta blockers although given the swelling he has likely abdominal swelling he has he may not be absorbing oral beta blockers very well. As his heart rate improves the diltiazem drip can be titrated down. At this point I would not reinitiate his Xarelto until his medical status is more stable. His LV and RV function appear normal. He has severe biatrial enlargement which is not surprising given his years of paroxysmal atrial arrhythmias. As he continues to recover we will have to make an assessment as to whether he remains dyspneic with his atrial flutter. Based on his symptoms with appropriate anticoagulation one could then consider cardioversion if necessary with the potential need for antiarrhythmics I would continue with gentle diuresis given his volume overload. I would be careful to not over diuresis him and allow him to equilibrate on his own. Dr. Patel will return tomorrow as the patient follows with him as an outpatient.
[2017-02-21] MEDS ORDERED: NURSING VERBAL MED ORDER ONE (11:30)
[2017-02-21] MEDS ORDERED: POTASSIUM CHLORIDE 20 MEQ TABCR PO ONE (11:45)
[2017-02-21] MEDS: PANTOprazole INJ 40 MG in SYRINGE 0 ML IV SCH (11:55)
[2017-02-21] MEDS ORDERED: CUSTOM CENTRAL PN 1 BAG IV SCH (16:00)
[2017-02-22] VITALS (10 sets, daily range): BP systolic 122–147; BP diastolic 73–93; PULSE 79–93; TEMP 36.3–36.8; O2SAT 78–97
[2017-02-22] MEDS: RANITIDINE IV 50 MG in DEXTROSE 5% 100ML 100 ML IV SCH ×2 (00:16→08:00)
[2017-02-22] MEDS: INSULIN ASPART 100 UNITS/ML 3 ML PEN SC SCH ×5 (00:18→21:15)
[2017-02-22 04:46] LABS: BUN/CREATININE RATIO 25.2 (10-20); CALCIUM 8.2 mg/dl (8.5-10.1); MAGNESIUM 1.8 mg/dl (1.8-2.4); PHOSPHORUS 3.3 mg/dl (2.5-4.9); POTASSIUM 3.9 mmol/L (3.5-5.1)
[2017-02-22] MEDS: PIPERACILL/TAZOBAC IV 3.375 GM in DEXTROSE 5% 100ML 100 ML IV SCH ×3 (06:20→21:26)
--- NOTE | 2017-02-22 07:39 | Surgery Progress Note ---
Surgery Progress Note Date of Service Feb 22, 2017. Subjective Post OP Day: 11 colostomy working, tolerating clears, no nausea Objective Vital Signs: Date Time Temp Pulse Resp B/P (MAP) Pulse Ox O2 Delivery O2 Flow Rate FiO2 02/22/17 07:25 36.6 90 20 147/75 (99) 97 Room Air 02/22/17 04:00 Room Air 02/22/17 03:00 36.3 79 18 144/73 (96) 94 Room Air 02/21/17 23:59 Room Air 02/21/17 23:31 36.4 68 18 119/74 (89) 93 Room Air 02/21/17 20:00 95 Room Air 02/21/17 19:53 36.6 85 20 143/83 (103) 95 Room Air 02/21/17 16:31 95 Room Air 02/21/17 15:37 36.5 85 20 131/84 (100) 96 Room Air 02/21/17 12:19 95 Room Air 02/21/17 11:46 80 96 02/21/17 11:42 36.3 81 18 135/89 (104) 94 Room Air 02/21/17 08:01 95 Room Air 02/21/17 07:50 36.2 104 16 130/52 (78) 95 Room Air Abdomen: soft Incision(s): drainage (scant, serous) Laboratory Results: Results Past 24 Hours Test 02/21/17 10:36 02/21/17 11:45 02/21/17 16:00 02/21/17 17:56 Range/Units White Blood Count 11.27 4.8-10.8 K/uL Red Blood Count 4.35 4.7-6.1 M/uL Hemoglobin 13.7 14.0-18.0 g/dL Hematocrit 38.7 42-52 % Mean Corpuscular Volume 89.0 80-100 fL Mean Corpuscular Hemoglobin 31.5 25-34 pg Mean Corpuscular Hemoglobin Concent 35.4 32-36 g/dl Platelet Count 290 130-400 K/uL Mean Platelet Volume 8.8 7.4-10.4 fL Neutrophils (%) (Auto) 81.0 % Lymphocytes (%) (Auto) 7.6 % Monocytes (%) (Auto) 7.2 % Eosinophils (%) (Auto) 2.8 % Basophils (%) (Auto) 0.3 % Neutrophils # (Auto) 9.13 1.4-6.5 K/uL Lymphocytes # (Auto) 0.86 1.2-3.4 K/uL Monocytes # (Auto) 0.81 0.11-0.59 K/uL Eosinophils # (Auto) 0.32 0-0.5 K/uL Basophils # (Auto) 0.03 0-0.2 K/uL RDW Standard Deviation 43.0 36.4-46.3 fL RDW Coefficient of Variation 13.1 11.5-14.5 % Immature Granulocyte % (Auto) 1.1 % Immature Granulocyte # (Auto) 0.12 0.00-0.02 K/uL Bedside Glucose 231 184 243 70-99 mg/dl Test 02/21/17 23:29 02/22/17 03:58 02/22/17 05:44 Range/Units Bedside Glucose 181 160 70-99 mg/dl Sodium Level 138 136-145 mmol/L Potassium Level 3.9 3.5-5.1 mmol/L Chloride Level 105 98-107 mmol/L Carbon Dioxide Level 28 21-32 mmol/L Anion Gap 5.0 3-11 mmol/L Blood Urea Nitrogen 25 7-18 mg/dl Creatinine 1.00 0.60-1.40 mg/dl Est Creatinine Clear Calc Drug Dose 63.8 ml/min Estimated GFR () 82.6 Estimated GFR (Non- 71.3 BUN/Creatinine Ratio 25.2 10-20 Random Glucose 172 70-99 mg/dl Calcium Level 8.2 8.5-10.1 mg/dl Phosphorus Level 3.3 2.5-4.9 mg/dl Magnesium Level 1.8 1.8-2.4 mg/dl Assessment & Plan s/p ex lap, lysis of adhesions for SBO, post op ileus ok to advance to full liquids cont TPN consider regular diet tomorrow ambulating seen with Dr. Cameron
[2017-02-22] MEDS: HEPARIN SOD 5000 UNIT/0.5 ML CARP SQ SCH ×2 (09:00→21:15)
[2017-02-22] MEDS: METOPROLOL TARTRATE 50 MG TAB PO SCH ×2 (09:00→21:11)
[2017-02-22] MEDS: FUROSEMIDE INJ 40 MG in SYRINGE 0 ML IV SCH (09:00)
[2017-02-22] MEDS: PANTOprazole INJ 40 MG in SYRINGE 0 ML IV SCH (11:50)
--- NOTE | 2017-02-22 14:07 | Hospitalist Progress Note ---
Hospitalist Progress Note Date of Service Feb 22, 2017. (Jennifer Oates .NANCI) Subjective Pt evaluation today including: conversation w/ patient, physical exam, chart review, lab review, review of inpatient medication list Pain: None PO Intake: Tolerating full liquid diet Voiding: no voiding problems Patient reports feeling well. He was able to tolerate a full liquid diet well without any issues. He has a mild, non-productive cough. He does note some intermittent wheezing but is otherwise feeling well. He states he feels somewhat fatigued but denies weakness. The patient denies fevers, chills, sweats, chest pain, palpitations, claudication, shortness of breath, nausea, vomiting, abdominal pain, dysuria, hematuria, urinary retention, paralysis, weakness, numbness and tingling. Additional Comments: See HPI for pertinent positives and negatives. All other systems reviewed and negative. (Jennifer Oates PA-C) Objective Vital Signs Date Time Temp Pulse Resp B/P (MAP) Pulse Ox O2 Delivery O2 Flow Rate FiO2 02/22/17 12:41 95 Room Air 02/22/17 11:15 36.7 80 18 124/89 (101) 94 Room Air 02/22/17 08:31 95 Room Air 02/22/17 07:25 36.6 90 20 147/75 (99) 97 Room Air 02/22/17 04:00 Room Air 02/22/17 03:00 36.3 79 18 144/73 (96) 94 Room Air 02/21/17 23:59 Room Air 02/21/17 23:31 36.4 68 18 119/74 (89) 93 Room Air 02/21/17 20:00 95 Room Air 02/21/17 19:53 36.6 85 20 143/83 (103) 95 Room Air 02/21/17 16:31 95 Room Air 02/21/17 15:37 36.5 85 20 131/84 (100) 96 Room Air (Jennifer Oates PA-C) Physical Exam Notes: General appearance: Well-developed, well-nourished, no apparent distress Head: Normocephalic, atraumatic Eyes: Normal inspection, PERRL, EOMI ENT: Normal ENT inspection, hearing grossly normal, pharynx normal Neck: Supple, no JVD, trachea midline Respiratory/Chest: +Decreased breath sounds. Lungs clear to auscultation, no respiratory distress Cardiovascular: +Irregularly irregular, tachycardic. No gallop, no murmur Abdomen/GI: +Colostomy LLQ. Incision site lower abdomen with serosanguineous drainage. Normal bowel sounds, non-tender, soft Extremities/Musculoskeletal: Normal inspection, no calf tenderness, no pedal edema Neurological/Psych: Alert, normal mood/affect, oriented x 3 Skin: Normal color, warm/dry, no rash (Jennifer Oates ., PA-C) Laboratory Results Last 24 Hours Test 02/21/17 16:00 02/21/17 17:56 02/21/17 23:29 02/22/17 03:58 Bedside Glucose 184 mg/dl 243 mg/dl 181 mg/dl Sodium Level 138 mmol/L Potassium Level 3.9 mmol/L Chloride Level 105 mmol/L Carbon Dioxide Level 28 mmol/L Anion Gap 5.0 mmol/L Blood Urea Nitrogen 25 mg/dl Creatinine 1.00 mg/dl Est Creatinine Clear Calc Drug Dose 63.8 ml/min Estimated GFR () 82.6 Estimated GFR (Non- 71.3 BUN/Creatinine Ratio 25.2 Random Glucose 172 mg/dl Calcium Level 8.2 mg/dl Phosphorus Level 3.3 mg/dl Magnesium Level 1.8 mg/dl Test 02/22/17 05:44 02/22/17 11:21 Bedside Glucose 160 mg/dl 176 mg/dl (Jennifer Oates ., PA-C) Assessment and Plan 81 y/o male with a history of colon CA and colostomy since 1978, chronic diastolic CHF, chronic a-fib, HTN and DM II who presents with SBO requiring RAYMUNDO. 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 POD #11 -Admit to telemetry. Pt in a-fib overnight. Diltiazem drip stopped, and pt HR went up to 140s. HR back down to 80s after morning Lopressor dose, now 100s- 120s -General surgery consulted, appreciate recs: advance to full liquid diet. Continue TPN. If tolerates, can consider advancing to regular diet tomorrow. -NGT d/c'd -TPN started 02/18 due low prealbumin and electrolyte abnormalities. PICC line in place -Chest/abdomen x-ray 02/21 shows improvement of ileus Acute on chronic diastolic CHF--stable/improving -Pt had over 13L gain during this stay -U/O 3425 with net balance -1331 total on 02/21 -Continue Lasix 40 mg IV qd -Echo: * The left ventricle is mildly dilated. * There is normal left ventricular wall thickness. * Ejection Fraction = 60-65%. * Left ventricular systolic function is normal. * I can not exclude hypokinesis of the distal anterior and distal anterolateral moore. * The RV is dilated with normal RV function. * The left atrium is severely dilated. * The right atrium is severely dilated. * Aortic valve sclerosis mild, without significant aortic valvular stenosis. * There is moderate mitral regurgitation. * PA pressure 40 mm/hg Diastolic dysfunction, Grade II, consistent with elevated left atrial pressure Chronic a-fib with RVR--improving -Appreciate cardiology recs -Diltiazem drip stopped overnight -Continue Lopressor 50 mg PO BID for now -Resume Xarelto when okay with surgery and cardio HTN, HLD--stable -Continue Lopressor as above -Continue to hold losartan for now while on IV Lasix as BP is adequately controlled DM II--Last HgbA1c was 7.3 on 02/05/17 -Hold glipizide -Insulin sliding scale -Check BSGs q ac and qhs GERD -Convert Zantac and Protonix back to PO DVT prophylaxis -Heparin 5000 units SC q12h until Xarelto resumed -SCDs Dispo -Plan for [facility] when medically stable, will need insurance authorization (Jennifer Oates ., PA-C) I agree with PA assessment and plan and have seen and examined pt myself Labs and vitals reviewed No abd pain TOlerating TPN Can advance diet if improving Post op ileus improving POD#1 Appreciate surg recs (Carlos Gillis D.O.)
[2017-02-22] MEDS: METOPROLOL TARTRATE 1 MG/ML VIAL IV PRN (14:46)
--- NOTE | 2017-02-22 15:58 | Cardiology Follow-Up ---
Subjective Date of Service: Feb 22, 2017. Pt evaluation today including: conversation w/ patient, physical exam, chart review, lab review, review of studies, review of inpatient medication list History of Present Illness Mr. Morin is a pleasant 81 year old white male with a history of Paroxysmal Atrial Fibrillation / Paroxysmal Atrial Flutter s/p elective electrical cardioversion 06/24/2016, Chronic RBBB, Hypertension, Dyslipidemia, Type 2 Diabetes Mellitus, and Colon Cancer who presented acutely to [facility] ER on 2016 with an acute small bowel obstruction for which he underwent exploratory laparotomy with lysis of adhesions and closure of small bowel enterotomy. He continues to recover from this surgery and is being maintained on IVF's, TPN, and he is on IV antibiotics. Patient was noted to be in Atrial Flutter with a controlled V-rate on admission. His Xarelto has been held due to surgery and tenuous medical status - - but he has been receiving SQ Heparin. As the patient became more ill -- his Ventricular rate increased. Additionally he received copious IVF's and at one point he had a > 12 L positive fluid balance and developed cough and edema. He has subsequently had a brisk diuresis and his body weight is below his typical body weight. Patient remains in A-Fib / Flutter currently and his resting V-rate is reasonably well controlled but he becomes very tachycardic with any activity or exertion. He still has some LE edema, but otherwise is feeling "good". Patient denies any chest pain, heaviness, tightness, or pressure. He denies any SOB, JIMENEZ , orthopnea, or pnd. No palpitations, syncope, or near syncope. Patient denies any signs / symptoms of stroke or mini-stroke. Social History Smoking Status: Former Smoker History of Alcohol Use: Yes (1-2 GLASSES OF WINE DAILY) Review of Systems Respiratory: No shortness of breath Cardiac: No chest pain Patient has been passing flatus. He denies any nausea or vomiting. Surgical pain is controlled. Medications Current Inpatient Medications Medications (Trade) Dose Ordered Sig/Oscar Route Start Time Stop Time Status Last Admin Dose Admin Ondansetron HCl (Zofran Inj) 4 mg Q6H PRN IV 02/10/17 15:45 03/12/17 15:44 02/17/17 11:02 4 MG Glucose (Glucose Chew Tab) 4-8 Tablets 4 Tabl... UD PRN PO 02/10/17 15:45 03/12/17 15:44 Dextrose (Dextrose 50% 50ML Syringe) 25-50ML OF 50% DW IV FOR... UD PRN IV 02/10/17 15:45 03/12/17 15:44 Glucose (Glucose 40% Gel) 15-30 GRAMS 15 GRAMS... UD PRN PO 02/10/17 16:15 03/12/17 16:14 Glucagon (Glucagon Inj) 1 mg UD PRN SQ 02/10/17 16:15 03/12/17 16:14 Hydralazine HCl (HydrALAZINE INJ) 10 mg Q4H PRN IV 02/10/17 18:00 03/12/17 17:59 02/10/17 23:47 10 MG Lorazepam (Ativan Inj) 1 mg Q8H PRN IV 02/11/17 21:45 03/13/17 21:44 02/15/17 23:43 1 MG Calcium Carbonate (Tums Chew Tab) 1,000 mg QID PRN PO 02/13/17 03:45 03/15/17 03:44 02/13/17 07:50 1,000 MG Al Hydroxide/Mg Hydroxide (Maalox Susp) 30 ml Q6H PRN PO 02/13/17 10:00 03/15/17 09:59 02/17/17 13:57 30 ML Lidocaine HCl (Viscous Lidocaine 2% Soln) 20 ml Q6 PRN PO 02/13/17 10:00 03/15/17 09:59 Heparin Sodium (Porcine) (Heparin Sq 5000 Unit/0.5ml) 5,000 unit Q12 SQ 02/13/17 21:00 03/15/17 20:59 02/22/17 09:00 5,000 UNIT Menthol (Nice Berkley) 1 berkley PRN PRN PO 02/15/17 07:30 03/17/17 07:29 Levalbuterol (Xopenex 0.63 Mg/ 3 Ml Neb) 0.63 mg Q6R PRN INH 02/15/17 11:30 03/17/17 11:29 Metoprolol Tartrate (Lopressor Iv) 5 mg Q6 PRN IV 02/16/17 08:00 03/17/17 11:59 02/22/17 14:46 5 MG Metoprolol Tartrate (Lopressor Tab) 50 mg BID PO 02/16/17 09:00 03/18/17 08:59 02/22/17 09:00 50 MG Acetaminophen (Tylenol Tab) 650 mg Q6H PRN PO 02/16/17 09:45 03/18/17 09:44 02/16/17 10:31 650 MG Oxycodone/ Acetaminophen (Percocet 5-325mg Tab) 1 tab Q4H PRN PO 02/17/17 06:00 03/03/17 05:59 Fentanyl Citrate (Fentanyl Inj) 50 mcg Q1H PRN IV 02/17/17 15:15 03/03/17 15:14 Insulin Aspart (novoLOG ASPART) SLIDING SCALE If C... Q6 SC 02/18/17 00:00 03/20/17 00:00 02/22/17 11:55 6 UNITS Oxymetazoline HCl (Afrin 0.05% Nasal [place]) 2 sprays Q12H PRN SUNG 02/17/17 21:30 03/19/17 21:29 02/18/17 14:14 2 SPRAYS Diltiazem HCl 125 mg/Dextrose 125 ml @ 0 mls/hr Q0M PRN IV 02/17/17 21:30 03/19/17 23:59 02/20/17 20:15 5 MLS/HR Piperacillin Sod/ Tazobactam Sod 3.375 gm/Dextrose 115 ml @ 28.75 mls/ hr Q8H IV 02/18/17 14:00 02/28/17 13:59 02/22/17 13:30 28.75 MLS/HR Heparin Sodium (Porcine) (Heparin 10 Unit/ ml 5 ml Flush) 5 ml PRN PRN FLUSH 02/18/17 08:30 03/20/17 08:29 Piperacillin Sod/ Tazobactam Sod (Consult) 1 ea UD PRN N/A 02/18/17 08:45 03/20/17 08:44 Miscellaneous Information (Pharmacy Tpn/ Ppn Consult Active) 1 ea UD PRN N/A 02/18/17 09:45 03/20/17 09:44 Dextrose 1,000 ml @ 0 mls/hr Q0M PRN IV 02/18/17 13:09 03/20/17 13:08 Diphenhydramine HCl (Benadryl Inj) 12.5 mg HS PRN IV 02/19/17 21:00 03/21/17 20:59 02/19/17 23:05 12.5 MG Furosemide 40 mg/ Syringe 4 ml @ 4 mls/min QAM IV 02/20/17 09:00 03/22/17 08:59 02/22/17 09:00 4 MLS/MIN Nutrition (Parenteral) 0 ml @ 0 mls/hr TODAY@1600 IV 02/21/17 16:00 02/22/17 15:59 02/21/17 15:58 0 MLS/HR Nutrition (Parenteral) 0 ml @ 0 mls/hr TODAY@1600 IV 02/22/17 16:00 02/23/17 15:59 Ranitidine HCl (zANTac TAB) 150 mg HS PO 02/22/17 21:00 03/24/17 20:59 Pantoprazole Sodium (Protonix Tab) 40 mg QAM PO 02/23/17 09:00 03/25/17 08:59 Objective Vital Signs Past 12 Hours Date Time Temp Pulse Resp B/P (MAP) Pulse Ox O2 Delivery O2 Flow Rate FiO2 02/22/17 14:46 144 133/78 02/22/17 14:44 84 78 02/22/17 12:41 95 Room Air 02/22/17 11:15 36.7 80 18 124/89 (101) 94 Room Air 02/22/17 08:31 95 Room Air 02/22/17 07:25 36.6 90 20 147/75 (99) 97 Room Air 02/22/17 04:00 Room Air Last Recorded Weight-Kilograms: 85.100 Intake & Output 8-Hour Column 02/22/17 02/23/17 02/23/17 16:00 00:00 08:00 Intake Total 1357 ml Output Total 3200 ml Balance -1843 ml 24-Hour Column 02/23/17 08:00 Intake Total 1357 ml Output Total 3200 ml Balance -1843 ml Physical Exam General: Patient in no acute distress. HEENT: Head is atraumatic, normocephalic. EOMs intact. Sclerae anicteric. Facies symmetric. No perioral cyanosis. Neck: No thyromegaly, adenopathy, or JVD. Carotid upstrokes +2 bilaterally without bruits. JVP is elevated approximately 1[address] to the angle of the jaw. Chest and Lungs: Decreased breath sounds in bilateral bases, scattered wheezes , occasional crackles toward lower lung ness. CVS: S1 and S2 are iregular, tachycardic at a rate of 100 to 110 bpm. No murmurs, gallops, or rubs. PMI is nondisplaced. No lifts, heaves, or thrills. No abdominal aortic or renal bruits. Abdominal Exam: Bowel sounds present. Extremities: No clubbing or cyanosis. +1 pitting edema over distal pretibuial surface, ankles, and feet. Intact posterior tibial and radial pulses bilaterally. Neurologic Exam: Patient is awake, alert, and oriented. Pleasant and cooperative. Answers questions appropriately. Speech is clear. Normal movement in all 4 extremities. Gait pattern not assessed. Data Laboratory Results: Last 24 Hours Test 02/21/17 16:00 02/21/17 17:56 02/21/17 23:29 02/22/17 03:58 Bedside Glucose 184 mg/dl 243 mg/dl 181 mg/dl Sodium Level 138 mmol/L Potassium Level 3.9 mmol/L Chloride Level 105 mmol/L Carbon Dioxide Level 28 mmol/L Anion Gap 5.0 mmol/L Blood Urea Nitrogen 25 mg/dl Creatinine 1.00 mg/dl Est Creatinine Clear Calc Drug Dose 63.8 ml/min Estimated GFR () 82.6 Estimated GFR (Non- 71.3 BUN/Creatinine Ratio 25.2 Random Glucose 172 mg/dl Calcium Level 8.2 mg/dl Phosphorus Level 3.3 mg/dl Magnesium Level 1.8 mg/dl Test 02/22/17 05:44 02/22/17 11:21 Bedside Glucose 160 mg/dl 176 mg/dl Imaging: CXR 02/21/2017 -- Cardiomegaly without evidence of pulmonary edema, small B/L pleural effusions. EKG: Telemetry reviewed: A-Flutter / A-Fib with intermittent RVR , rates up to 170 bpm. ECHOCARDIOGRAM: -- Normal LV size and systolic function. -- Severe bi-atrial enlargement. -- Grade 2 LV Diastolic Dysfunction. -- Dilated RV with normal RV systolic function. Assessment and Plan 1. Paroxysmal Atrial Flutter / Paroxysmal Atrial Fibrillation with intermittent RVR: -- Increase Lopressor to 100 mg po bid. -- Continue Diltiazem drip for now. -- IV Lopressor 5 mg prn for tachycardia. -- Resume Xarelto 20 mg daily when okay with surgeon. -- After being adequately anticoagulated for at least 3 and 1/2 weeks we will arrange an outpatient electrical cardioversion. -- With severe bi-atrial enlargement - may need to consider anti-arrhythmic therapy (Sotalol would be a reasonable option) -- Consider Digoxin if V-rate elevations persist. -- Keep serum K+ and Mg++ levels in the normal range. 2. Iatrogenic Hypervolemia / LV Diastolic Dysfunction: -- Goal is to slow HR and maximize LV diastolic filling time. -- Negative chronotropic medications as above. -- Continue IV Lasix. -- Monitor daily I&O's, body weights. Attending note: I reviewed the documentation above by EVERTON Nunez PA-C. I personally saw and examined the patient. Patient presented with atrial fibrillation. I believe believe this is the most accurate diagnosis of his atrial arrhythmia. He seems to have had some difficulty with rate control recently, but has not been overtly symptomatic. I would agree with the recommendation to continue his metoprolol. I suspect that as he normalizes his volume status rate control will become easier. Unclear whether he would benefit from cardioversion as he likely has longstanding persistent atrial fibrillation. He is not currently anticoagulated to facilitate cardioversion, but this could be entertained if his rates continue to be difficult to control despite aggressive rate control measures. I would continue with his oral beta blockade and diuresis. Will continue to follow during this hospitalization and consider additional measures as required. kaelyn you for asking us to see this patient in consultation -- we will continue to follow.
[2017-02-22] MEDS ORDERED: CUSTOM CENTRAL PN 1 BAG IV SCH (16:00)
[2017-02-22] MEDS ORDERED: NURSING VERBAL MED ORDER ONE ×2 (17:00→18:00)
[2017-02-22] MEDS ORDERED: METOPROLOL TARTRATE 50 MG TAB PO ONE (18:15)
[2017-02-22] MEDS: METOPROLOL TARTRATE 100 MG TAB PO SCH (21:00)
[2017-02-22] MEDS: RANITIDINE HCL 150 MG TAB PO SCH (21:12)
[2017-02-23] VITALS (9 sets, daily range): BP systolic 118–132; BP diastolic 65–89; PULSE 80–112; TEMP 36.4–36.9; O2SAT 92–96
[2017-02-23 05:00] LABS: HEMATOCRIT 40.4 % (42-52); MEAN CELL VOLUME 89.6 fL (80-100); MEAN CORPUSCULAR HEMOGLOBIN 29.9 pg (25-34); MEAN CORPUSCULAR HGB CONC 33.4 g/dl (32-36); MEAN PLATELET VOLUME 8.7 fL (7.4-10.4); PLATELET COUNT 321 K/uL (130-400); RED BLOOD COUNT 4.51 M/uL (4.7-6.1); WHITE BLOOD COUNT 9.48 K/uL (4.8-10.8)
[2017-02-23 05:22] LABS: BUN/CREATININE RATIO 24.5 (10-20); CALCIUM 8.4 mg/dl (8.5-10.1); CREATININE 1.1 mg/dl (0.60-1.40); POTASSIUM 4.2 mmol/L (3.5-5.1)
--- NOTE | 2017-02-23 05:59 | Surgery Progress Note ---
Surgery Progress Note Date of Service Feb 23, 2017. Subjective feels well no pain belly soft good output per ostomy Objective Vital Signs: Date Time Temp Pulse Resp B/P (MAP) Pulse Ox O2 Delivery O2 Flow Rate FiO2 02/23/17 04:22 36.5 112 18 127/79 (95) 96 Room Air 02/23/17 04:00 Room Air 02/23/17 00:06 36.9 80 18 122/77 (92) 95 Room Air 02/22/17 23:59 Room Air 02/22/17 20:00 95 Room Air 02/22/17 19:12 36.8 93 22 130/84 (99) 95 Room Air 02/22/17 16:00 96 Room Air 02/22/17 15:16 36.7 85 23 133/79 (97) 96 Room Air 02/22/17 14:46 144 133/78 02/22/17 14:44 84 78 02/22/17 12:41 95 Room Air 02/22/17 11:15 36.7 80 18 124/89 (101) 94 Room Air 02/22/17 08:31 95 Room Air 02/22/17 07:25 36.6 90 20 147/75 (99) 97 Room Air General Appearance: WD/WN, no apparent distress Abdomen: + pertinent finding (soft no loc tenderness) Incision(s): clean (minimal drainage from lise site) Laboratory Results: Results Past 24 Hours Test 02/22/17 11:21 02/22/17 16:08 02/22/17 20:12 02/23/17 04:49 Range/Units Bedside Glucose 176 138 263 70-99 mg/dl White Blood Count 9.48 4.8-10.8 K/uL Red Blood Count 4.51 4.7-6.1 M/uL Hemoglobin 13.5 14.0-18.0 g/dL Hematocrit 40.4 42-52 % Mean Corpuscular Volume 89.6 80-100 fL Mean Corpuscular Hemoglobin 29.9 25-34 pg Mean Corpuscular Hemoglobin Concent 33.4 32-36 g/dl RDW Standard Deviation 42.6 36.4-46.3 fL RDW Coefficient of Variation 13.0 11.5-14.5 % Platelet Count 321 130-400 K/uL Mean Platelet Volume 8.7 7.4-10.4 fL Sodium Level 137 136-145 mmol/L Potassium Level 4.2 3.5-5.1 mmol/L Chloride Level 105 98-107 mmol/L Carbon Dioxide Level 27 21-32 mmol/L Anion Gap 5.0 3-11 mmol/L Blood Urea Nitrogen 27 7-18 mg/dl Creatinine 1.10 0.60-1.40 mg/dl Est Creatinine Clear Calc Drug Dose 58.0 ml/min Estimated GFR () 73.6 Estimated GFR (Non- 63.5 BUN/Creatinine Ratio 24.5 10-20 Random Glucose 178 70-99 mg/dl Calcium Level 8.4 8.5-10.1 mg/dl Assessment & Plan 02/23/17 plan increase diet d/c hyper al keep here for today may go to reg floor if ok with medical service 02/21/17 will dc ng tube check kub start H2O intake suspect pt has resolved his ileus and will go slow with starting oral intake 02/20/17 continue with hyper al for now do not clamp ng tube repeat kub in am 02/21/17 will dc ng tube check kub start H2O intake suspect pt has resolved his ileus and will go slow with starting oral intake 02/20/17 continue with hyper al for now do not clamp ng tube repeat kub in am
[2017-02-23] MEDS: PIPERACILL/TAZOBAC IV 3.375 GM in DEXTROSE 5% 100ML 100 ML IV SCH ×3 (06:01→21:13)
[2017-02-23] MEDS: METOPROLOL TARTRATE 100 MG TAB PO SCH (07:06)
[2017-02-23] MEDS: PANTOprazole SOD 40 MG TAB PO SCH (07:07)
[2017-02-23] MEDS: FUROSEMIDE INJ 40 MG in SYRINGE 0 ML IV SCH (07:54)
[2017-02-23] MEDS: HEPARIN SOD 5000 UNIT/0.5 ML CARP SQ SCH (08:00)
[2017-02-23] MEDS: INSULIN ASPART 100 UNITS/ML 3 ML PEN SC SCH ×4 (08:00→21:16)
--- NOTE | 2017-02-23 09:28 | Cardiology Follow-Up ---
Subjective Date of Service: Feb 23, 2017. Pt evaluation today including: conversation w/ patient, physical exam, chart review, lab review, review of studies History of Present Illness Patient reports feeling well today. Denies any significant abdominal discomfort. He did tolerate a normal diet this morning. He was ambulatory yesterday without symptoms even at high heart rates. He has been ambulatory around his room this morning but not extensively. He denied any significant dizziness, lightheadedness or dyspnea. Social History Smoking Status: Former Smoker History of Alcohol Use: Yes (1-2 GLASSES OF WINE DAILY) Review of Systems Respiratory: + see HPI, No shortness of breath Cardiac: No chest pain Patient has been passing flatus. He denies any nausea or vomiting. Surgical pain is controlled. Objective Vital Signs Past 12 Hours Date Time Temp Pulse Resp B/P (MAP) Pulse Ox O2 Delivery O2 Flow Rate FiO2 02/23/17 07:36 36.7 92 18 132/89 (103) 94 Room Air 02/23/17 04:22 36.5 112 18 127/79 (95) 96 Room Air 02/23/17 04:00 Room Air 02/23/17 00:06 36.9 80 18 122/77 (92) 95 Room Air 02/22/17 23:59 Room Air Last Recorded Weight-Kilograms: 82.100 Physical Exam General: Patient in no acute distress. HEENT: Head is atraumatic, normocephalic. EOMs intact. Sclerae anicteric. Facies symmetric. No perioral cyanosis. Neck: No thyromegaly, adenopathy, or JVD. Carotid upstrokes +2 bilaterally without bruits. JVP is elevated approximately 1/[address] to the angle of the jaw. Chest and Lungs: Decreased breath sounds in bilateral bases, scattered wheezes , occasional crackles toward lower lung ness. CVS: S1 and S2 are iregular, tachycardic at a rate of 100 to 110 bpm. No murmurs, gallops, or rubs. PMI is nondisplaced. No lifts, heaves, or thrills. No abdominal aortic or renal bruits. Abdominal Exam: Bowel sounds present. Extremities: No clubbing or cyanosis. +1 pitting edema over distal pretibuial surface, ankles, and feet. Intact posterior tibial and radial pulses bilaterally. Neurologic Exam: Patient is awake, alert, and oriented. Pleasant and cooperative. Answers questions appropriately. Speech is clear. Normal movement in all 4 extremities. Gait pattern not assessed. Data Laboratory Results: Last 24 Hours Test 02/22/17 11:21 02/22/17 16:08 02/22/17 20:12 02/23/17 04:49 Bedside Glucose 176 mg/dl 138 mg/dl 263 mg/dl White Blood Count 9.48 K/uL Red Blood Count 4.51 M/uL Hemoglobin 13.5 g/dL Hematocrit 40.4 % Mean Corpuscular Volume 89.6 fL Mean Corpuscular Hemoglobin 29.9 pg Mean Corpuscular Hemoglobin Concent 33.4 g/dl RDW Standard Deviation 42.6 fL RDW Coefficient of Variation 13.0 % Platelet Count 321 K/uL Mean Platelet Volume 8.7 fL Sodium Level 137 mmol/L Potassium Level 4.2 mmol/L Chloride Level 105 mmol/L Carbon Dioxide Level 27 mmol/L Anion Gap 5.0 mmol/L Blood Urea Nitrogen 27 mg/dl Creatinine 1.10 mg/dl Est Creatinine Clear Calc Drug Dose 58.0 ml/min Estimated GFR () 73.6 Estimated GFR (Non- 63.5 BUN/Creatinine Ratio 24.5 Random Glucose 178 mg/dl Calcium Level 8.4 mg/dl Test 02/23/17 07:07 Bedside Glucose 192 mg/dl Imaging: EKG: Telemetry reviewed: Atrial fibrillation with a controlled ventricular response this morning Assessment and Plan 1. Atrial fibrillation: The patient's overall rate control appears to have improved on a higher dose of metoprolol. He has not been ambulatory today but we will monitor his rates when he is up and about later. He had adequate control on a lower dose at the time of admission and I would expect him to have good control of his arrhythmia at the time of discharge with a single agent. Continue to titrate this as required. He should be restarted on his Xarelto when cleared by the surgical service. 2. Volume status: Patient continues to have an aggressive diuresis. His current weight is lower than the admission weight. I would caution the use of continued intravenous diuretics as he may encounter an element of hypovolemia. This may drive his heart rate higher
--- NOTE | 2017-02-23 10:15 | Hospitalist Progress Note ---
Hospitalist Progress Note Date of Service Feb 23, 2017. Subjective Pt evaluation today including: conversation w/ patient, physical exam, chart review, lab review, conversation w/ quality improvement consultant (spoke with Dr. Patel and Dr. Cameron), review of inpatient medication list Pain: None PO Intake: Tolerating low fiber diet Voiding: no voiding problems Patient reports feeling well. He does reports some fatigue and states he hasn' t been sleeping very well in the hospital. He also still complains of a non- productive cough that has remained unchanged from yesterday. He denies wheezing today. He was able to tolerate a low fiber diet this morning without difficulty. The patient denies fevers, chills, sweats, chest pain, palpitations , claudication, wheezing, shortness of breath, nausea, vomiting, abdominal pain , dysuria, hematuria, urinary retention, paralysis, weakness, numbness and tingling. Additional Comments: See HPI for pertinent positives and negatives. All other systems reviewed and negative. Objective Vital Signs Date Time Temp Pulse Resp B/P (MAP) Pulse Ox O2 Delivery O2 Flow Rate FiO2 02/23/17 07:36 36.7 92 18 132/89 (103) 94 Room Air 02/23/17 04:22 36.5 112 18 127/79 (95) 96 Room Air 02/23/17 04:00 Room Air 02/23/17 00:06 36.9 80 18 122/77 (92) 95 Room Air 02/22/17 23:59 Room Air 02/22/17 20:00 95 Room Air 02/22/17 19:12 36.8 93 22 130/84 (99) 95 Room Air 02/22/17 16:00 96 Room Air 02/22/17 15:16 36.7 85 23 133/79 (97) 96 Room Air 02/22/17 14:46 144 133/78 02/22/17 14:44 84 78 02/22/17 12:41 95 Room Air 02/22/17 11:15 36.7 80 18 124/89 (101) 94 Room Air Physical Exam Notes: General appearance: Well-developed, well-nourished, no apparent distress Head: Normocephalic, atraumatic Eyes: Normal inspection, PERRL, EOMI ENT: Normal ENT inspection, hearing grossly normal, pharynx normal Neck: Supple, no JVD, trachea midline Respiratory/Chest: Lungs clear to auscultation, normal breath sounds, no respiratory distress Cardiovascular: +Irregularly irregular, rate controlled. No gallop, no murmur Abdomen/GI: +Colostomy LLQ. Incision w/sander suprapubic area with serosanguineous drainage. Normal bowel sounds, non-tender, soft Extremities/Musculoskeletal: +Trace pitting edema. Normal inspection, no calf tenderness Neurological/Psych: Alert, normal mood/affect, oriented x 3 Skin: Normal color, warm/dry, no rash Laboratory Results Last 24 Hours Test 02/22/17 11:21 02/22/17 16:08 02/22/17 20:12 02/23/17 04:49 Bedside Glucose 176 mg/dl 138 mg/dl 263 mg/dl White Blood Count 9.48 K/uL Red Blood Count 4.51 M/uL Hemoglobin 13.5 g/dL Hematocrit 40.4 % Mean Corpuscular Volume 89.6 fL Mean Corpuscular Hemoglobin 29.9 pg Mean Corpuscular Hemoglobin Concent 33.4 g/dl RDW Standard Deviation 42.6 fL RDW Coefficient of Variation 13.0 % Platelet Count 321 K/uL Mean Platelet Volume 8.7 fL Sodium Level 137 mmol/L Potassium Level 4.2 mmol/L Chloride Level 105 mmol/L Carbon Dioxide Level 27 mmol/L Anion Gap 5.0 mmol/L Blood Urea Nitrogen 27 mg/dl Creatinine 1.10 mg/dl Est Creatinine Clear Calc Drug Dose 58.0 ml/min Estimated GFR () 73.6 Estimated GFR (Non- 63.5 BUN/Creatinine Ratio 24.5 Random Glucose 178 mg/dl Calcium Level 8.4 mg/dl Test 02/23/17 07:07 Bedside Glucose 192 mg/dl Assessment and Plan 81 y/o male with a history of colon CA and colostomy since 1978, chronic diastolic CHF, chronic a-fib, HTN and DM II who presents with SBO requiring RAYMUNDO. 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 POD #11 -Admit to telemetry. Pt in a-fib overnight with HR mostly in 90s to low 100s. HR up to 180s in 3p-11p shift. -General surgery consulted, appreciate recs: advance to low fiber diet, keep one more day. D/C TPN. -NGT d/c'd -TPN started 02/18 due low prealbumin and electrolyte abnormalities. D/C'd on -Chest/abdomen x-ray 02/21 shows improvement of ileus Acute on chronic diastolic CHF--stable/improving -Pt had over 13L gain during this stay -U/O 4375 with net balance -1941 total on 02/22 -Switch to Lasix 40 mg PO -Echo: * The left ventricle is mildly dilated. * There is normal left ventricular wall thickness. * Ejection Fraction = 60-65%. * Left ventricular systolic function is normal. * I can not exclude hypokinesis of the distal anterior and distal anterolateral moore. * The RV is dilated with normal RV function. * The left atrium is severely dilated. * The right atrium is severely dilated. * Aortic valve sclerosis mild, without significant aortic valvular stenosis. * There is moderate mitral regurgitation. * PA pressure 40 mm/hg Diastolic dysfunction, Grade II, consistent with elevated left atrial pressure Chronic a-fib with RVR--improving -Appreciate cardiology recs: increase Lopressor to 100 mg PO BID. Caution with aggressive IV diuresis as may result in hypovolemia and worsening of HR. -Lopressor increased to 100 mg PO BID. Pt did not tolerate 100 mg tablets, reporting increased shortness of breath and anxiety -Change to Lopressor 50 mg PO TID after speaking to Dr. Patel. -Resume Xarelto 20 mg PO qd, spoke with Dr. Cameron HTN, HLD--stable -Continue Lopressor as above -Continue to hold losartan for now while on IV Lasix as BP is adequately controlled DM II--Last HgbA1c was 7.3 on 02/05/17 -Hold glipizide -Insulin sliding scale -Check BSGs q ac and qhs GERD -Convert Zantac and Protonix back to PO DVT prophylaxis -Xarelto -SCDs Dispo -New PT evals recommend returning home with home health services
[2017-02-23] MEDS: METOPROLOL TARTRATE 50 MG TAB PO SCH ×2 (15:04→21:16)
[2017-02-23] MEDS ORDERED: RIVAROXABAN 20 MG TAB PO ONE (16:00)
[2017-02-23] MEDS: RANITIDINE HCL 150 MG TAB PO SCH (21:16)
[2017-02-24] VITALS (7 sets, daily range): BP systolic 104–147; BP diastolic 59–82; PULSE 86–107; TEMP 36.3–36.5; O2SAT 93–98
[2017-02-24] MEDS: PIPERACILL/TAZOBAC IV 3.375 GM in DEXTROSE 5% 100ML 100 ML IV SCH ×2 (05:43→13:49)
[2017-02-24 05:46] LABS: HEMATOCRIT 41.1 % (42-52); MEAN CELL VOLUME 90.7 fL (80-100); MEAN CORPUSCULAR HEMOGLOBIN 30.9 pg (25-34); MEAN CORPUSCULAR HGB CONC 34.1 g/dl (32-36); MEAN PLATELET VOLUME 9.7 fL (7.4-10.4); PLATELET COUNT 338 K/uL (130-400); RED BLOOD COUNT 4.53 M/uL (4.7-6.1); WHITE BLOOD COUNT 9.48 K/uL (4.8-10.8)
[2017-02-24 06:16] LABS: BUN/CREATININE RATIO 22.1 (10-20); CALCIUM 8.3 mg/dl (8.5-10.1); CREATININE 1.2 mg/dl (0.60-1.40)
--- NOTE | 2017-02-24 06:55 | Surgery Progress Note ---
Surgery Progress Note Date of Service Feb 24, 2017. Subjective feels fine,tolerating diet colostomy working no nausea nothing for pain Objective Vital Signs: Date Time Temp Pulse Resp B/P (MAP) Pulse Ox O2 Delivery O2 Flow Rate FiO2 02/24/17 04:26 36.4 91 18 122/82 (95) 95 Room Air 02/24/17 04:00 Room Air 02/24/17 00:12 36.3 86 18 111/77 (88) 97 Nasal Cannula 1.0 02/23/17 23:59 Room Air 02/23/17 20:19 36.4 85 20 121/65 (83) 92 Room Air 02/23/17 20:00 Room Air 02/23/17 16:00 Room Air 02/23/17 15:07 36.5 80 22 119/77 (91) 94 Room Air 02/23/17 13:23 36.6 82 20 125/76 (92) 95 02/23/17 12:08 95 Room Air 02/23/17 10:54 36.5 90 18 118/82 (94) 96 Room Air 02/23/17 08:01 95 Room Air 02/23/17 07:36 36.7 92 18 132/89 (103) 94 Room Air Abdomen: + pertinent finding (soft incision fine intact without drainage) Laboratory Results: Results Past 24 Hours Test 02/23/17 07:07 02/23/17 11:11 02/23/17 16:34 02/23/17 20:40 Range/Units Bedside Glucose 192 213 204 202 70-99 mg/dl Test 02/24/17 04:52 Range/Units White Blood Count 9.48 4.8-10.8 K/uL Red Blood Count 4.53 4.7-6.1 M/uL Hemoglobin 14.0 14.0-18.0 g/dL Hematocrit 41.1 42-52 % Mean Corpuscular Volume 90.7 80-100 fL Mean Corpuscular Hemoglobin 30.9 25-34 pg Mean Corpuscular Hemoglobin Concent 34.1 32-36 g/dl RDW Standard Deviation 44.3 36.4-46.3 fL RDW Coefficient of Variation 13.3 11.5-14.5 % Platelet Count 338 130-400 K/uL Mean Platelet Volume 9.7 7.4-10.4 fL Sodium Level 138 136-145 mmol/L Potassium Level 4.0 3.5-5.1 mmol/L Chloride Level 102 98-107 mmol/L Carbon Dioxide Level 28 21-32 mmol/L Anion Gap 8.0 3-11 mmol/L Blood Urea Nitrogen 26 7-18 mg/dl Creatinine 1.20 0.60-1.40 mg/dl Est Creatinine Clear Calc Drug Dose 53.2 ml/min Estimated GFR () 66.3 Estimated GFR (Non- 57.2 BUN/Creatinine Ratio 22.1 10-20 Random Glucose 198 70-99 mg/dl Calcium Level 8.3 8.5-10.1 mg/dl Assessment & Plan 02/23/17 plan increase diet d/c hyper al keep here for today may go to reg floor if ok with medical service 02/21/17 will dc ng tube check kub start H2O intake suspect pt has resolved his ileus and will go slow with starting oral intake 02/20/17 continue with hyper al for now do not clamp ng tube repeat kub in am 02/24/17 plan d/c if ok with medical service no need for antibiotics f/u office 1 week no lifting greater than 10 lbs may shower and drive no need for rx analgesics 02/23/17 plan increase diet d/c hyper al keep here for today may go to reg floor if ok with medical service 02/21/17 will dc ng tube check kub start H2O intake suspect pt has resolved his ileus and will go slow with starting oral intake 02/20/17 continue with hyper al for now do not clamp ng tube repeat kub in am
[2017-02-24] MEDS: METOPROLOL TARTRATE 50 MG TAB PO SCH (07:46)
[2017-02-24] MEDS: PANTOprazole SOD 40 MG TAB PO SCH (07:46)
[2017-02-24] MEDS: INSULIN ASPART 100 UNITS/ML 3 ML PEN SC SCH ×2 (07:50→12:20)
[2017-02-24] MEDS ORDERED: FUROSEMIDE 40 MG TAB PO SCH (09:00)
--- NOTE | 2017-02-24 09:39 | Cardiology Follow-Up ---
Subjective Date of Service: Feb 24, 2017. Pt evaluation today including: conversation w/ patient, physical exam, chart review, conversation w/ attending History of Present Illness This morning the patient complains primarily of overnight insomnia and hallucinations. He has has not had very restful sleep since his operation. He is somewhat frustrated with his inability to sleep, the associated fatigue and hallucinations. He was ambulatory to some degree yesterday. He was noted to have high heart rates. He denies any sense of palpitations. He has not had any significant dizziness or lightheadedness. He had a element of mild dyspnea. Social History Smoking Status: Former Smoker History of Alcohol Use: Yes (1-2 GLASSES OF WINE DAILY) Review of Systems Respiratory: + see HPI, No shortness of breath Cardiac: No chest pain Patient has been passing flatus. He denies any nausea or vomiting. Surgical pain is controlled. Objective Vital Signs Past 12 Hours Date Time Temp Pulse Resp B/P (MAP) Pulse Ox O2 Delivery O2 Flow Rate FiO2 02/24/17 08:30 95 Room Air 02/24/17 07:40 36.4 105 18 147/77 (100) 98 Room Air 02/24/17 04:26 36.4 91 18 122/82 (95) 95 Room Air 02/24/17 04:00 Room Air 02/24/17 00:12 36.3 86 18 111/77 (88) 97 Nasal Cannula 1.0 02/23/17 23:59 Room Air Last Recorded Weight-Kilograms: 82.200 Physical Exam General: Patient in no acute distress. HEENT: Head is atraumatic, normocephalic. EOMs intact. Sclerae anicteric. Facies symmetric. No perioral cyanosis. Neck: No thyromegaly, adenopathy, or JVD. Carotid upstrokes +2 bilaterally without bruits. JVP is elevated approximately [address] the angle of the jaw. Chest and Lungs: Decreased breath sounds in bilateral bases, scattered wheezes , occasional crackles toward lower lung ness. CVS: S1 and S2 are iregular, tachycardic at a rate of 100 to 110 bpm. No murmurs, gallops, or rubs. PMI is nondisplaced. No lifts, heaves, or thrills. No abdominal aortic or renal bruits. Abdominal Exam: Bowel sounds present. Extremities: No clubbing or cyanosis. +1 pitting edema over distal pretibuial surface, ankles, and feet. Intact posterior tibial and radial pulses bilaterally. Neurologic Exam: Patient is awake, alert, and oriented. Pleasant and cooperative. Answers questions appropriately. Speech is clear. Normal movement in all 4 extremities. Gait pattern not assessed. Data Laboratory Results: Last 24 Hours Test 02/23/17 11:11 02/23/17 16:34 02/23/17 20:40 02/24/17 04:52 Bedside Glucose 213 mg/dl 204 mg/dl 202 mg/dl White Blood Count 9.48 K/uL Red Blood Count 4.53 M/uL Hemoglobin 14.0 g/dL Hematocrit 41.1 % Mean Corpuscular Volume 90.7 fL Mean Corpuscular Hemoglobin 30.9 pg Mean Corpuscular Hemoglobin Concent 34.1 g/dl RDW Standard Deviation 44.3 fL RDW Coefficient of Variation 13.3 % Platelet Count 338 K/uL Mean Platelet Volume 9.7 fL Sodium Level 138 mmol/L Potassium Level 4.0 mmol/L Chloride Level 102 mmol/L Carbon Dioxide Level 28 mmol/L Anion Gap 8.0 mmol/L Blood Urea Nitrogen 26 mg/dl Creatinine 1.20 mg/dl Est Creatinine Clear Calc Drug Dose 53.2 ml/min Estimated GFR () 66.3 Estimated GFR (Non- 57.2 BUN/Creatinine Ratio 22.1 Random Glucose 198 mg/dl Calcium Level 8.3 mg/dl Test 02/24/17 06:50 Bedside Glucose 183 mg/dl Imaging: EKG: Telemetry reviewed: At rest heart rates 80s to 90s. With activity heart rate up to 150. Assessment and Plan 1. Atrial fibrillation: Patient continues to have high heart rates primarily with activity or agitation. This is despite escalating doses of beta-nadine. And may continue to be some contribution from changes in his volume status and his recent surgery. He may also have an element of deconditioning after being in the hospital for over 2 weeks. Fortunately, he is not symptomatic from the high heart rates. I think we can try more aggressive rate control with the addition of a calcium channel nadine. He is known to have preserved LV systolic function would likely tolerate this well given his current vital signs. He also seems to do better assisted on metoprolol succinate. I would advocate a change to metoprolol succinate 100 milligrams daily with initiation of low-dose diltiazem scheduled 3 times daily. He should continue on Xarelto indefinitely. I suspect that as the patient gets home, gets more rest and resumed his usual activity which may actually see improvement in the heart rates in the absence of additional rate control measures.
[2017-02-24] MEDS: DILTIAZEM HCL 30 MG TAB PO SCH ×2 (10:21→13:50)
[2017-02-24] MEDS ORDERED: METOPROLOL SUCC 50MG EXT REL TAB PO SCH (12:00)
[2017-02-24] MEDS ORDERED: CRD30 PO (12:02)
--- NOTE | 2017-02-24 12:23 | Discharge Instructions ---
Discharge Instructions Date of Service Feb 24, 2017. Admission Reason for Admission: Bowel Obstruction Discharge Discharge Diagnosis / Problem: Small bowel obstruction, atrial fibrillation w/ rapid ventricular response Discharge Goals Goal(s): Decrease discomfort, Improve function, Diagnostic testing, Therapeutic intervention Activity Recommendations Activity Limitations: as noted below Lifting Limitations: no more than 10 pounds Exercise/Sports Limitations: as tolerated Shower/Bathe: no limitations Driving or Machine Use: may resume driving when nighttime delirium resolves . Instructions / Follow-Up Instructions / Follow-Up You were admitted to the hospital with a small bowel obstruction that was caused by adhesions that had formed. A nasogastric tube was placed at admission to help alleviate the obstruction, and you then underwent a surgical procedure to lyse the adhesions causing the obstruction. You unfortunately developed a post operative ileus which eventually required re-insertion of the nasogastric tube and institution of parenteral nutrition. The ileus also did eventually resolve, and the nasogastric tube was removed again. Your diet was slowly advanced, which you tolerated well without any further postoperative complications. During your hospital stay, you did develop atrial fibrillation with rapid ventricular response, in which your heart rate was very rapid and difficult to control. Your metoprolol dose was initially increased in an attempt to better control your heart rate, and you were eventually placed on an IV drip of another medication called diltiazem. The diltiazem did help to better control you rate. The IV drip was stopped, and we attempted to control your rate with metoprolol alone once again. Dr. Patel, your legal word processor, was also following your case. It was decided to discharge you back on your home dose of metoprolol and add a low dose of diltiazem to take as well to help control your rate. You will need close follow up with cardiology to ensure proper rate control, and Dr. Patel can further adjust your medications as needed as an outpatient. Once leaving the hospital and getting some more sleep, you may also find improvement in your heart rate. Recommendations: *Per Dr. Cameron, you may shower and drive; however I would recommend that you do not drive again until your nighttime delirium/hallucinations have resolved. *Do not lift more than 10 pounds. *You may take over the counter Tylenol as needed for pain. Medications: *Please take diltiazem 30 mg by mouth three times a day in addition to your metoprolol succinate ER 100 mg daily. *STOP losartan for now, as your blood pressure has become borderline low with the addition of the diltiazem. When following up with your primary care provider and cardiology, this medication may be restarted at a later date. *Continue your other home medications as prescribed. Follow up: *You have been scheduled for a follow up appointment with Paola Gillespie PA-C on March 03 at 11:00 am regarding your hospitalization and changes to your medications. *Someone will be in touch with you in regards to your rescheduled colonoscopy. *You will need to follow up with Dr. Patel within a week regarding your atrial fibrillation. *You will also need to follow up with Dr. Cameron in about a week to have your sander removed. Please seek medical attention if you experience fevers, chills, sweats, dizziness/lightheadedness, loss of consciousness, chest pain, shortness of breath, nausea, vomiting, numbness, tingling, or if you are unable to pass stool. Current Hospital Diet Patient's current hospital diet: Low Fiber Diet Discharge Diet Recommended Diet: Low Fiber Diet Procedures Procedures Performed: Exploratory Laparotomy, Lysis of Adhesions, Small Bowel Enterotomy Closure Pending Studies Studies pending at discharge: no Laboratory Results Hemoglobin A1c Test 02/05/17 07:43 Range/Units Estimated Average Glucose 163 mg/dl Hemoglobin A1c 7.3 H 4.5-5.6 % Lipid Panel Test 02/16/17 07:41 02/19/17 04:20 Range/Units Triglycerides Level 132 128 0-150 mg/dl Cholesterol Level 101 0-200 mg/dl HDL Cholesterol 34 mg/dl Cholesterol/HDL Ratio 3.0 LDL Cholesterol, Calculated 41 mg/dl Medical Emergencies . Who to Call and When: Medical Emergencies: If at any time you feel your situation is an emergency, please call 911 immediately. . Non-Emergent Contact Non-Emergency issues call your: Primary Care Provider, Procedure Rn, Surgeon Call Non-Emergent contact if: you have a fever, your pain is not controlled, your pain is worsening, your pain is unusual for you, wound has increased drainage, wound has increased redness, wound has increased pain, you have any medication questions . Past History Medical & Surgical History: (1) Small bowel obstruction (2) Atrial fibrillation . "Provider Documentation" section prepared by Jennifer Oates. . VTE Core Measure Inpt VTE Proph given/why not?: Other Anticoagulation (Xarelto), T.EDada Stockings, SCD's
--- NOTE | 2017-02-24 14:54 | Discharge Summary ---
Discharge Summary Date of Service Feb 24, 2017. (Jennifer Oates, NANCI) Discharge Summary Admission Date: Feb 10, 2017 at 15:52 Discharge Date: Feb 24, 2017 Discharge Disposition: Home with services Principal Diagnosis: Small bowel obstruction, atrial fibrillation with RVR Immunizations: Have You Had Influenza Vaccine: Yes Influenza Vaccine Date: Jun 24, 2007 History of Tetanus Vaccine?: No History of Pneumococcal: No History of Hepatitis B Vaccine: No Procedures: Operative Report Operative Date Feb 11, 2017. Pre-Operative Diagnosis Small bowel obstruction Post-Operative Diagnosis sbo secondary to adhesions Procedure(s) Performed exp lap lyses of adhesion closure small bowel enterotomy Surgeon Dr Cameron Forest Fire Equipment Operator Surgeon(s) Baljeet Bob PA-C Estimated Blood Loss 30cc Findings distal jejunum adhesion to left lower quadrant causing near complete obstruction , enterotomy near to obstructing bands Specimens Culture #1 urine catheed for culture and sensitivity Drains 1/4 inch lise sub cut I attest to the content of the Intraoperative Record and any orders documented therein. Any exceptions are noted below. Procedure Note Date of Service Feb 17, 2017. Procedure Note NG placement: At the request of the hospitalist due to prior NG dislodgement, I placed an 18 Fr NG into the left nare and secured the tube at 76 cm. 500 mL of bilious fluid was drained. A KUB is pending. The patient tolerated the procedure well. Cetacaine spray was applied topically to the posterior pharynx and 4% lidocaine instilled into the Left nare. Echo: Interpretation Summary * Name: YOEL RAMACHANDRAN Study Date: 02/20/2017 06:51 AM BP: 127/75 mmHg * Patient Location: [facility]S\\1 HR: 88 * : 1935 (M/d/yyyy) Gender: Male Height: 71 in * Age: 81 yrs Ethnicity: CA Weight: 207 lb * Ordering Physician: Analilia Martinez * Referring Physician: Self, Referred * Performed By: Stew Vaughn RCS * * Reason For Study: CHF * BSA: 2.1 m2 * -- Conclusions -- * The left ventricle is mildly dilated. * There is normal left ventricular wall thickness. * Ejection Fraction = 60-65%. * Left ventricular systolic function is normal. * I can not exclude hypokinesis of the distal anterior and distal anterolateral moore. * The RV is dilated with normal RV function. * The left atrium is severely dilated. * The right atrium is severely dilated. * Aortic valve sclerosis mild, without significant aortic valvular stenosis. * There is moderate mitral regurgitation. * PA pressure 40 mm/hg * Diastolic dysfunction, Grade II, consistent with elevated left atrial pressure. Procedure Details * Left Ventricle The left ventricle is mildly dilated. There is normal left ventricular wall thickness. Ejection Fraction = 60-65%. Left ventricular systolic function is normal. I can not exclude hypokinesis of the distal anterior and distal anterolateral moore. * Right Ventricle The RV is dilated with normal RV function. * Atria The left atrium is severely dilated. The right atrium is severely dilated. * Mitral Valve There is moderate mitral annular calcification. There is moderate mitral regurgitation. * Tricuspid Valve The tricuspid valve is not well visualized, but is grossly normal. There is mild tricuspid regurgitation. PA pressure 40 mm/hg * Aortic Valve Aortic valve sclerosis mild, without significant aortic valvular stenosis. No aortic regurgitation is present. * Pulmonic Valve The pulmonic valve is not well visualized. * Great Vessels The aortic root is normal size. There is aortic root sclerosis/calcification. * Pericardium/Pleural There is no pericardial effusion. * Great Vessels Normal inferior vena cava size and collapsability with sniff indicates a normal right atrial pressure of 3 mmHg * Left Ventricular Diastolic Function Diastolic dysfunction, Grade II, consistent with elevated left atrial pressure. Consultations: General surgery--Dr. Cameron Cardiology--Dr. Patel (Jennifer Oates ., PA-C) Medication Reconciliation New Medications: Diltiazem HCl (Diltiazem HCl) 30 Mg Tab 30 MG PO TID for 30 Days, #90 TAB Take 1 tablet by mouth three times a day. Continued Medications: Glipizide (Glipizide Er) 5 Mg Tab 5 MG PO DAILY Metoprolol Succ (Toprol Xl) (Toprol-Xl) 50 Mg Tabcr 100 MG PO DAILY, 0 Refills Omeprazole (Prilosec) 40 Mg Cap 40 MG PO DAILY, CAP Ranitidine Hcl (Zantac) 150 Mg Tab 150 MG PO PM, TAB Rivaroxaban (Xarelto) 20 Mg Tab 20 MG PO DAILY, TAB Simvastatin (Zocor) 40 Mg Tab 40 MG PO QPM, 0 Refills Discontinued Medications: Losartan Potassium (Cozaar) 100 Mg Tab 100 MG PO DAILY, TAB Referrals At Discharge Follow up Referrals: Flat Bed Knitter Referral - First Available with Tad Patel MD Surgery Referral - Within 1 Week with Antonio Cameron M.D. Discharge Exam Patient reports having a "bad night" last night. He admits to have trouble sleeping throughout the entire hospital stay, and states that after the surgery he had been having hallucinations at nighttime. More recently he is no longer having hallucinations but seems to be having very vivid dreams after which he wakes up feeling confused and disoriented. The delirium resolves quickly after waking up. He attributes this to sleep deprivation/fatigue as he has not been sleeping well at all in the 2 weeks he has been hospitalized. The patient states that is tolerating a PO diet well and denies any abdominal pain, nausea, or vomiting. He is able to ambulate well without dyspnea on exertion or chest pain and denies any palpitations. He still complains of a mild non-productive cough. The patient denies fevers, chills, sweats, chest pain, palpitations, claudication, wheezing, shortness of breath, nausea, vomiting, abdominal pain, dysuria, hematuria, urinary retention, paralysis, weakness, numbness and tingling. Review of Systems: Constitutional: + fatigue, No fever, No chills, No sweats Eyes: No worsening of vision, No eye pain, No diplopia ENT: No hearing loss, No sore throat, No trouble swallowing Respiratory: + cough, No sputum, No wheezing, No shortness of breath Cardiovascular: No chest pain, No claudication, No palpitations Abdomen: No pain, No nausea, No vomiting Musculoskeletal: No joint pain, No muscle pain, No swelling Genitourinary - Male: No hematuria, No dysuria, No urinary retention Neurologic: + problem reported (nighttime delirium), No paralysis, No weakness, No numbness/tingling Integumentary: No rash, No itch, No color change Physical Exam: General Appearance: WD/WN, no apparent distress Eyes: normal inspection, PERRL, EOMI ENT: normal ENT inspection, hearing grossly normal, pharynx normal Neck: supple, no JVD, trachea midline Respiratory/Chest: lungs clear, normal breath sounds, no respiratory distress Cardiovascular: no gallop, no murmur, + tachycardia, + irregularly irregular Abdomen / GI: normal bowel sounds, non tender, soft, + pertinent finding ( colostomy LLQ. Incision suprapubic area with some minimal serosanguineous drainage) Extremities: normal inspection, no calf tenderness, no pedal edema 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: alert, normal mood/affect, oriented x 3 Skin: normal color, warm/dry, no rash (Jennifer Oates ., PA-C) Hospital Course 81 y/o male with a history of colon CA and colostomy since 1978, chronic diastolic CHF, chronic a-fib, HTN and DM II who presents with SBO requiring RAYMUNDO. 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 POD #13 -Admit to telemetry. Pt in a-fib overnight with HR mostly in 90s to 110s. HR up to 150s-160s with activity this morning -General surgery consulted, appreciate recs: can discontinue abx. Clear for discharge from surgical standpoint. Follow up in 1 week. No lifting over 10 pounds. May shower and drive. Tylenol prn for pain. -NGT d/c'd -TPN started 02/18 due low prealbumin and electrolyte abnormalities. D/C'd on . D/C PICC line -Chest/abdomen x-ray 02/21 shows improvement of ileus Acute on chronic diastolic CHF--resolved -Pt had over 13L gain during this stay -U/O 3450 with net balance -1691 total on 02/23 -Switch to Lasix 40 mg PO 02/23. D/c Lasix on discharge -Echo: * The left ventricle is mildly dilated. * There is normal left ventricular wall thickness. * Ejection Fraction = 60-65%. * Left ventricular systolic function is normal. * I can not exclude hypokinesis of the distal anterior and distal anterolateral moore. * The RV is dilated with normal RV function. * The left atrium is severely dilated. * The right atrium is severely dilated. * Aortic valve sclerosis mild, without significant aortic valvular stenosis. * There is moderate mitral regurgitation. * PA pressure 40 mm/hg Diastolic dysfunction, Grade II, consistent with elevated left atrial pressure Chronic a-fib with RVR--improving -Appreciate cardiology recs: switch Lopressor to metoprolol succinate 100 mg PO qd, add diltiazem 30 mg PO TID -Resume home Toprol 100 mg PO qd -Add diltiazem 30 mg PO TID. Pt observed for several hours after first dose of diltiazem prior to discharge, tolerated well -Resume Xarelto 20 mg PO qd, spoke with Dr. Cameron HTN, HLD--stable -Continue Lopressor as above -Continue to hold losartan as BP is low normal after addition of diltiazem. May possibly resume later as outpt DM II--Last HgbA1c was 7.3 on 02/05/17 -Hold glipizide, resume on discharge -Insulin sliding scale -Check BSGs q ac and qhs GERD -Convert Zantac and Protonix back to PO DVT prophylaxis -Xarelto -SCDs Dispo -New PT evals recommend returning home with home health services. Pt does not want outpt PT, but agreeable to home health to help monitor his medications, HR and BP Total Time Spent: Greater than 30 minutes This includes examination of the patient, discharge planning, medication reconciliation, and communication with other providers. (Jennifer Oates ., PA-C) I agree with PA assessment and plan and have seen and examined pt myself Resting comfortably in bed Labs and vitals reviewed No acute incidents overnight Tolerating new dose of metoprolol in addition to diltiazem Tolerating diet OK for DC home (Carlos Gillis, D.OIke) Discharge Instructions Please refer to the electronic Patient Visit Report (Discharge Instructions) for additional information. (Jennifer Oates ., PA-C) Additional Copies To Paola Gillespie P.A.
[2017-02-24] MEDS ORDERED: LIDOCAINE 4% W/AFRIN NASAL SOLN 4ML ONE (15:44)
[2017-02-24] MEDS ORDERED: BENZOCAIN/TETRACA/BUTAM SPRAY 200 APPLN/20 GM SPRY EXT ONE (15:44)
[2017-02-24] MEDS ORDERED: RIVAROXABAN 20 MG TAB PO SCH (16:45)
--- NOTE | 2017-03-08 08:55 | OPERATIVE REPORT ---
DATE OF OPERATION: 02/11/2017 PREOPERATIVE DIAGNOSIS: Small bowel obstruction. POSTOPERATIVE DIAGNOSIS: Same secondary to adhesions. PROCEDURES: Exploratory lap, lysis of adhesions and small bowel enterotomy closure. SURGEON: Antonio Cameron MD DESCRIPTION OF PROCEDURE: The patient was brought into the operating room theater. Deleon catheter had been inserted. The abdomen was prepped with Betadine scrubbing solution and properly draped. Systemic antibiotics were given. The colostomy site bag was removed and we had prepped and flushed it off the operative field. At this point, we made a midline incision deepened through subcutaneous tissue through the old scar. The incision was mostly infraumbilically. Once we entered the abdomen, we were met with significant adhesions of which we took down and identified the dilated small bowel proximally. We followed it down and it seemed to have a really tight adhesive band nearly completely obstructing in its mid portion of between the jejunum and ileum. Once we had noted this, there was a small enterotomy that we had closed with interrupted 3-0 silk sutures. This seemed to be the only area of obstruction since distal to this adhesive band, the rest of the bowel was decompressed. There was no evidence that there was any hernia that of significance obstruction around the colostomy site. The area was then checked for hemostasis and appeared satisfactory. We closed with interrupted #1 PDS [id number] and then we basically closed the subcutaneous tissue over a Tania drain, a quarter inch and sander for skin edges. Dressing was applied. The procedure was tolerated well by the patient and was taken to recovery room in good condition. I attest to the content of the Intraoperative Record and any orders documented therein. Any exception s are noted below.
[2017-04-08] MEDS ORDERED: PANT40TA PO (11:49)
[2017-04-08] MEDS ORDERED: MULT-506 PO (11:49)
[2017-04-08] MEDS ORDERED: CRD30 PO (11:49)
[2017-04-08] MEDS ORDERED: SUCR5SUS PO (11:49)
[2017-04-08] MEDS ORDERED: METO1TAB69 PO (11:49)
--- NOTE | 2017-05-07 12:32 | EDITING REQUIRED CODING QUERY ---
Dear Dr. Gillis, Your help is needed for correct coding of this account; please clarify if the patients Post-operative Ileus was: (X ) expected out of the surgery ( ) unexpected complication from the surgery ( )other please specify Thank you for your time. Ann Marie Mackenzie, RETORT FURNACE OPERATOR
== END 2017-02-24 15:45 | disposition home health service (06) | DRG 335 ==
LOC: C.EDB 12:06 → C.MSW 15:52 → ENRESERV 16:19 → C.2T 02-11 11:50 → ENRESERV 02-11 12:09 → C.MSW 02-12 14:39 → ENRESERV 02-12 14:59 → C.2T 02-15 09:37
PROVIDERS: ADMIT Internal Medicine; ATTEND Hospitalist
PROC: 0DNW4ZZ Release Peritoneum, Percutaneous Endoscopic Approach (ICD-10-PCS; principal; 2017-02-17)
PROC: 0D9670Z Drainage of Stomach with Drainage Device, Via Natural or Artificial Opening (ICD-10-PCS; 2017-02-18)
PROC: 02HV33Z Insertion of Infusion Device into Superior Vena Cava, Percutaneous Approach (ICD-10-PCS; 2017-02-18)
DX: K56.5 Intestinal adhesions [bands] with obstruction (postinfection) (principal); I50.33 Acute on chronic diastolic (congestive) heart failure; I48.92 Unspecified atrial flutter; N17.9 Acute kidney failure, unspecified; I13.0 Hypertensive heart and chronic kidney disease with heart failure and stage 1 through stage 4 chronic kidney disease, or unspecified chronic kidney disease; I48.91 Unspecified atrial fibrillation; K21.9 Gastro-esophageal reflux disease without esophagitis; N18.3 Chronic kidney disease, stage 3 (moderate); E66.9 Obesity, unspecified; E86.0 Dehydration; K56.7 Ileus, unspecified; E78.00 Pure hypercholesterolemia, unspecified; K44.9 Diaphragmatic hernia without obstruction or gangrene; E11.22 Type 2 diabetes mellitus with diabetic chronic kidney disease; E87.70 Fluid overload, unspecified; I45.19 Other right bundle-branch block; Z66 Do not resuscitate; Z87.891 Personal history of nicotine dependence; Z85.038 Personal history of other malignant neoplasm of large intestine; Z93.3 Colostomy status; Z68.25 Body mass index [BMI] 25.0-25.9, adult; Z79.899 Other long term (current) drug therapy; Z79.84 Long term (current) use of oral hypoglycemic drugs; Z79.01 Long term (current) use of anticoagulants

== ENCOUNTER → 2017-02-26 | Outpatient (CLI) | payer BC ==
[~2017-02-26] MED LIST changes: -ASPEC325 PO; +CRD30 PO; +DILT120C68 PO; -LISI40TA PO; +METO1TAB69 PO; +MULT-506 PO; -MULT-513 PO; -OMEP40CA PO; +OMEP40CA41 PO; +PANT40TA PO; +SUCR5SUS PO
--- NOTE | 2017-02-26 13:49 | DIAGNOSTIC IMAGING REPORT ---
RIGHT LOWER EXTREMITY VENOUS DOPPLER CLINICAL HISTORY: Right knee pain and numbness. COMPARISON STUDY: No previous studies for comparison. TECHNIQUE: Sonography of the deep venous system of the right lower extremity was performed. Compression and augmentation were evaluated. FINDINGS: The right common femoral, superficial femoral and popliteal veins were compressible. Augmentation was normal. Flow was shown within the deep calf vessels. IMPRESSION: No evidence of deep venous thrombus within the right lower extremity. Electronically signed by: Sami Tinajero M.D. 02/26/2017 1:47 PM Dictated Date/Time: 02/26/2017 1:47 PM
--- NOTE | 2017-03-04 12:58 | CODING QUERY MEDICAL NECESSITY ---
SUPPORTING DIAGNOSIS NEEDED A supporting diagnosis is required for the test/procedure performed on this patient in order for us to be reimbursed by the patient's insurance. Please provide a supporting diagnosis for the following test/procedure listed below next to the test name along with your signature. *If there is no additional diagnosis for this patient that would support the following test/procedure please document that below next to the test/procedure. Test(s)/Procedure(s) that require a supporting diagnosis: * US VENOUS UNIL LWR EXT DOPPLER DIAGNOSIS: Provider Signature: Date: Thank you Roshni Bryant [employer] Once completed, please kindly fax back to [phone] For questions please call [phone]
== END | disposition home or self-care (01) ==
PROVIDERS: ATTEND Internal Medicine
DX: M25.561 Pain in right knee (principal); R20.0 Anesthesia of skin

== ENCOUNTER → 2017-03-15 | Outpatient (CLI) | payer BC | END | disposition home or self-care (01) | LOC: C.RDSM 16:04 | PROVIDERS: ATTEND Physical Medicine & Rehabilitation Sports Medicine | DX: Z47.1 Aftercare following joint replacement surgery (principal); Z96.641 Presence of right artificial hip joint; M51.26 Other intervertebral disc displacement, lumbar region; M79.651 Pain in right thigh; M25.561 Pain in right knee ==

== ENCOUNTER 2017-05-19 17:59 | Emergency (ER) | payer BC ==
[~2017-05-19] VITALS: Ht 180.3 cm; Wt 85.0 kg
[~2017-05-19 17:59] MED LIST changes: -DILT120C68 PO; -METO50TA7 PO; -OMEP40CA41 PO
[2017-05-19 18:23] VITALS: TEMP 36.4; Ht 180.3 cm; Wt 85.0 kg
[2017-05-19] MEDS ORDERED: ONDANSETRON INJ 2 MG/ML 2 ML VIAL IV STA (19:19)
[2017-05-19] MEDS ORDERED: SODIUM CHLORIDE 0.9% 1000ML 1,000 ML IV STA (19:19)
--- NOTE | 2017-05-19 20:11 | DIAGNOSTIC IMAGING REPORT ---
ABD/PELVIS NO IV OR ORAL CONT HISTORY: 81 years-old Male ABDOMINAL PAIN/GI acute generalized abdominal pain. Initial exam. COMPARISON: CT abdomen and pelvis 02/10/2017 TECHNIQUE: Multiple axial CT images of the abdomen and pelvis were obtained without contrast. A dose lowering technique was used consistent with the principals of NATACHA. FINDINGS: Mild subpleural bibasilar reticulation within the lung bases suggest areas of pleural-parenchymal scarring. There is no pneumoperitoneum identified. Imaged inferior cardiac chambers are moderately enlarged with coronary arterial calcifications. The liver, spleen, gallbladder and adrenal glands are unremarkable. There is moderate diffuse pancreatic atrophy. Low attenuating lesions of the kidneys bilaterally suggests cysts, largest of which involves the superior pole left kidney, 2.5 cm. No renal calculi or hydronephrosis. The ureters and urinary bladder are unremarkable. The structures are somewhat subvisualized secondary to streak artifact from right hip arthroplasty. There is moderate atherosclerotic plaquing of the abdominal aorta. Pericaval 1.4 x 1.5 cm lymph node seen on image 232 of series 3 is unchanged from comparison study, again nonspecific. No new adenopathy is identified. Small sliding-type hiatal hernia. Small duodenal diverticulum. Multiple loops of small bowel throughout the central and lower abdomen are dilated with air-fluid levels measuring up to proximal 3.5 cm. Several loops demonstrate fecal material. Interloop edema is noted within the lower abdomen and pelvis with mild free fluid within the dependent pelvis. Tapering collapsed loops of small bowel are seen within the right lower quadrant. The distalmost ileum is collapsed. The findings appear to be similar to mildly progressed from comparison study dated 02/10/2017. The appendix appears normal. Colonic diverticulosis without diverticulitis. Air-fluid levels are seen within the cecum and ascending colon. Postsurgical changes are again seen compatible with rectosigmoid resection and left lower quadrant colostomy. Fat filled peristomal hernia is noted. Soft tissues are unremarkable. Bones appear to be intact. Right hip arthroplasty noted. Severe intervertebral disc space narrowing and facet arthropathy at L5-S1. IMPRESSION: 1. Persistent dilated loops of small bowel throughout the mid and lower abdomen with air-fluid levels, fecalized loops and tapered collapsed distal small bowel appears similar to slightly progressed from comparison study 02/10/2017, suspicious for low-grade small bowel obstruction. Follow-up study with a small bowel follow-through may be beneficial. 2. No pneumoperitoneum. 3. Postsurgical changes of prior rectosigmoid resection and left lower quadrant diverting colostomy. 4. Unchanged nonspecific enlarged pericaval lymph node without new adenopathy identified. Attention at follow-up recommended. 5. Colonic diverticulosis without diverticulitis. 6. Small sliding-type hiatal hernia. The above report was generated using voice recognition software. It may contain grammatical, syntax or spelling errors. Electronically signed by: Mayco Rodriguez M.D. 05/19/2017 8:10 PM Dictated Date/Time: 05/19/2017 7:59 PM
[2017-05-19 20:19] LABS: BASO % 0.3 %; BASO ABS # 0.03 K/uL (0-0.2); COMPLETE YES; EOS % 0.8 %; HEMATOCRIT 43.6 % (42-52); IG% 0.2 %; LYMPH % 7.4 %; LYMPH ABS # 0.76 K/uL (1.2-3.4); MEAN CELL VOLUME 87.6 fL (80-100); MEAN CORPUSCULAR HEMOGLOBIN 29.9 pg (25-34); MEAN CORPUSCULAR HGB CONC 34.2 g/dl (32-36); MEAN PLATELET VOLUME 9.2 fL (7.4-10.4); MONO % 8.8 %; NEUT % 82.5 %; PLATELET COUNT 181 K/uL (130-400); RED BLOOD COUNT 4.98 M/uL (4.7-6.1); WHITE BLOOD COUNT 10.26 K/uL (4.8-10.8)
[2017-05-19] MEDS ORDERED: DILT120C68 PO (20:25)
--- NOTE | 2017-05-19 20:34 | DIAGNOSTIC IMAGING REPORT ---
CHEST ONE VIEW PORTABLE HISTORY: 81 years-old Male ABDOMINAL PAIN/GI acute generalized abdominal pain COMPARISON: Acute abdominal series radiographs 02/21/2017 TECHNIQUE: Portable upright AP view of the chest FINDINGS: Cardiac silhouette is upper limits of normal. There is atherosclerosis of the aorta. No pneumothorax, pleural effusion or focal airspace consolidation. No overt pulmonary edema. The bones appear grossly intact. IMPRESSION: No acute cardiopulmonary process. The above report was generated using voice recognition software. It may contain grammatical, syntax or spelling errors. Electronically signed by: Mayco Rodriguez M.D. 05/19/2017 8:33 PM Dictated Date/Time: 05/19/2017 8:32 PM
[2017-05-19 20:36] LABS: BUN/CREATININE RATIO 7.9 (10-20); CALCIUM 9.5 mg/dl (8.5-10.1); CREATININE 1.4 mg/dl (0.60-1.40); POTASSIUM 4.1 mmol/L (3.5-5.1)
[2017-05-19 20:50] LABS: INR 1.2 (0.9-1.1); PARTIAL THROMBOPLASTIN RATIO 1.5; PROTHROMBIN TIME (PATIENT) 13.4 SECONDS (9.0-12.0)
[2017-05-19 21:04] LABS: URINE APPEARANCE CLEAR (CLEAR); URINE BILIRUBIN NEG (NEG); URINE COLOR YELLOW; URINE EPITHELIAL CELL AUTO 0-5 /lpf (0-5); URINE NITRITE NEG (NEG); URINE PH 8.5 (4.5-7.5); URINE SPECIFIC GRAVITY 1.012 (1.000-1.030); UROBILINOGEN NEG (NEG); ZZUR CULT IF INDIC CLEAN CATCH NO
[2017-05-19 21:05] LABS: MANUAL MICROSCOPIC REQUIRED? NO; REVIEW REQ? NO; SULFASALICYLIC ACID NEG (NEG)
--- NOTE | 2017-05-19 21:08 | EMERGENCY ROOM VISIT NOTE ---
History Report prepared by eRgi: Talat Brown Under the Supervision of: Dr. Barak King D.O. First contact with patient: 19:15 Chief Complaint: GI ASSESSMENT Stated Complaint: POSSIBLE BLOCKAGE OF BOWEL Nursing Triage Summary: Patient has history of bowel obstruction with resection in January of this year. Today having abd pain states colostomy is not functioning and he is having nausea. History of Present Illness The patient is a 81 year old male with a history of a bowel obstruction with resection in January who presents to the Emergency Room with complaints of persistent abdominal pain that started last night. He says that his resection was performed by Dr. Cameron, and he had multiple complications that caused him to be in the ICU for 2 weeks. He states that he has been recovering well from the operation, but last night, he started having abdominal pain. The patient says that he made the mistake of eating ángel slaw and beans for dinner last night, which causes him to have a lot of gas. The patient notes that he has a colostomy from a cancer operation many years ago, and for the past 2 hours , he feels that nothing is going through the colostomy. He adds that every few minutes, he gets a bad pain in his abdomen that feels like a contraction. The patient says that he has been dry heaving with nausea today, and vomited once. Source of History: patient Onset: Last night Position: abdomen Quality: other (pain - contraction-like ) Timing: other (persistent) Associated Symptoms: + nausea, + vomiting (and dry heaving) Note: Associated symptoms: Feels like colostomy not functioning right for past 2 hours. Review of Systems See HPI for pertinent positives & negatives. A total of 10 systems reviewed and were otherwise negative. Past Medical & Surgical Medical Problems: (1) Atrial fibrillation (2) Atrial fibrillation with RVR (3) Bowel obstruction (4) Colon cancer Surgical Problems: (1) S/P appendectomy Family History Cancer Hypertension Social History Smoking Status: Never Smoker Drug Use: none Marital Status: Housing Status: lives with family Occupation Status: retired Current/Historical Medications Scheduled Diltiazem Hcl Ext Rel (Tiazac), 120 MG PO DAILY Glipizide (Glipizide Er), 5 MG PO QAM Metoprolol Succ (Toprol Xl) (Toprol-Xl ), 100 MG PO QAM Multivitamin (Multivitamin), 1 TAB PO HS Pantoprazole (Protonix), 40 MG PO QAM Ranitidine Hcl (Zantac), 150 MG PO HS Rivaroxaban (Xarelto), 20 MG PO QAM Simvastatin (Zocor), 40 MG PO QPM Allergies Coded Allergies: Hydromorphone (Verified Allergy, Unknown, HALLUCINATIONS, 05/19/17) Lorazepam (Verified Allergy, Unknown, HALLUCINATIONS, 05/19/17) Tetanus Toxoid (Verified Allergy, Unknown, BLISTERS AND EYES SWELLING, 05/19/17) WAS GIVEN HORSE-SERUM TYPE TETANUS Physical Exam Vital Signs Date Time Temp Pulse Resp B/P (MAP) Pulse Ox O2 Delivery O2 Flow Rate FiO2 05/19/17 20:21 83 20 138/93 99 Room Air 05/19/17 18:23 36.4 99 18 153/83 95 Room Air Physical Exam CONSTITUTIONAL/VITAL SIGNS: Reviewed / noted above. GENERAL: Non-toxic in appearance. INTEGUMENTARY: Warm, dry, and [place]. HEAD: Normocephalic. EYES: without scleral icterus or trauma. ENT/OROPHARYNX: clear and moist. LYMPHADENOPATHY/NECK: Is supple without lymphadenopathy or meningismus. RESPIRATORY: Lungs clear and equal. CARDIOVASCULAR: Regular rate and rhythm. GI/ABDOMEN: Tenderness to palpation to left abdominal region in both the upper and lower quadrants. Colostomy noted with stool in the bag. EXTREMITIES: Warm and well perfused. BACK: No CVA tenderness. NEUROLOGICAL: Intact without focal deficits. PSYCHIATRIC: normal affect. MUSCULOSKELETAL: Normally developed with good muscle tone. Medical Decision & Procedures ER Provider Diagnostic Interpretation: Radiology results as stated below per my review and radiologist interpretation: ABD/PELVIS NO IV OR ORAL CONT HISTORY: 81 years-old Male ABDOMINAL PAIN/GI acute generalized abdominal pain. Initial exam. COMPARISON: CT abdomen and pelvis 02/10/2017 TECHNIQUE: Multiple axial CT images of the abdomen and pelvis were obtained without contrast. A dose lowering technique was used consistent with the principals of DEIONRA. FINDINGS: Mild subpleural bibasilar reticulation within the lung bases suggest areas of pleural-parenchymal scarring. There is no pneumoperitoneum identified. Imaged inferior cardiac chambers are moderately enlarged with coronary arterial calcifications. The liver, spleen, gallbladder and adrenal glands are unremarkable. There is moderate diffuse pancreatic atrophy. Low attenuating lesions of the kidneys bilaterally suggests cysts, largest of which involves the superior pole left kidney, 2.5 cm. No renal calculi or hydronephrosis. The ureters and urinary bladder are unremarkable. The structures are somewhat subvisualized secondary to streak artifact from right hip arthroplasty. There is moderate atherosclerotic plaquing of the abdominal aorta. Pericaval 1.4 x 1.5 cm lymph node seen on image 232 of series 3 is unchanged from comparison study, again nonspecific. No new adenopathy is identified. Small sliding-type hiatal hernia. Small duodenal diverticulum. Multiple loops of small bowel throughout the central and lower abdomen are dilated with air-fluid levels measuring up to proximal 3.5 cm. Several loops demonstrate fecal material. Interloop edema is noted within the lower abdomen and pelvis with mild free fluid within the dependent pelvis. Tapering collapsed loops of small bowel are seen within the right lower quadrant. The distalmost ileum is collapsed. The findings appear to be similar to mildly progressed from comparison study dated 02/10/2017. The appendix appears normal. Colonic diverticulosis without diverticulitis. Air-fluid levels are seen within the cecum and ascending colon. Postsurgical changes are again seen compatible with rectosigmoid resection and left lower quadrant colostomy. Fat filled peristomal hernia is noted. Soft tissues are unremarkable. Bones appear to be intact. Right hip arthroplasty noted. Severe intervertebral disc space narrowing and facet arthropathy at L5-S1. IMPRESSION: 1. Persistent dilated loops of small bowel throughout the mid and lower abdomen with air-fluid levels, fecalized loops and tapered collapsed distal small bowel appears similar to slightly progressed from comparison study 02/10/2017, suspicious for low-grade small bowel obstruction. Follow-up study with a small bowel follow-through may be beneficial. 2. No pneumoperitoneum. 3. Postsurgical changes of prior rectosigmoid resection and left lower quadrant diverting colostomy. 4. Unchanged nonspecific enlarged pericaval lymph node without new adenopathy identified. Attention at follow-up recommended. 5. Colonic diverticulosis without diverticulitis. 6. Small sliding-type hiatal hernia. The above report was generated using voice recognition software. It may contain grammatical, syntax or spelling errors. Electronically signed by: Mayco Rodriguez M.D. 05/19/2017 8:10 PM Dictated Date/Time: 05/19/2017 7:59 PM Chest x-ray:per my interpretation is negative for acute disease Laboratory Results 05/19/17 20:05 Red Blood Count 4.98, Mean Corpuscular Volume 87.6, Mean Corpuscular Hemoglobin 29.9, Mean Corpuscular Hemoglobin Concent 34.2, Mean Platelet Volume 9.2, Neutrophils (%) (Auto) 82.5, Lymphocytes (%) (Auto) 7.4, Monocytes (%) (Auto) 8.8, Eosinophils (%) (Auto) 0.8, Basophils (%) (Auto) 0.3, Neutrophils # (Auto) 8.47, Lymphocytes # (Auto) 0.76, Monocytes # (Auto) 0.90, Eosinophils # (Auto) 0.08, Basophils # (Auto) 0.03 05/19/17 20:05 Test 05/19/17 20:05 05/19/17 20:45 White Blood Count 10.26 K/uL (4.8-10.8) Red Blood Count 4.98 M/uL (4.7-6.1) Hemoglobin 14.9 g/dL (14.0-18.0) Hematocrit 43.6 % (42-52) Mean Corpuscular Volume 87.6 fL (80-100) Mean Corpuscular Hemoglobin 29.9 pg (25-34) Mean Corpuscular Hemoglobin Concent 34.2 g/dl (32-36) Platelet Count 181 K/uL (130-400) Mean Platelet Volume 9.2 fL (7.4-10.4) Neutrophils (%) (Auto) 82.5 % Lymphocytes (%) (Auto) 7.4 % Monocytes (%) (Auto) 8.8 % Eosinophils (%) (Auto) 0.8 % Basophils (%) (Auto) 0.3 % Neutrophils # (Auto) 8.47 K/uL (1.4-6.5) Lymphocytes # (Auto) 0.76 K/uL (1.2-3.4) Monocytes # (Auto) 0.90 K/uL (0.11-0.59) Eosinophils # (Auto) 0.08 K/uL (0-0.5) Basophils # (Auto) 0.03 K/uL (0-0.2) RDW Standard Deviation 45.1 fL (36.4-46.3) RDW Coefficient of Variation 14.3 % (11.5-14.5) Immature Granulocyte % (Auto) 0.2 % Immature Granulocyte # (Auto) 0.02 K/uL (0.00-0.02) Prothrombin Time 13.4 SECONDS (9.0-12.0) Prothromb Time International Ratio 1.2 (0.9-1.1) Activated Partial Thromboplast Time 38.3 SECONDS (21.0-31.0) Partial Thromboplastin Ratio 1.5 Anion Gap 8.0 mmol/L (3-11) Est Creatinine Clear Calc Drug Dose 45.5 ml/min Estimated GFR () 55.0 Estimated GFR (Non- 47.5 BUN/Creatinine Ratio 7.9 (10-20) Calcium Level 9.5 mg/dl (8.5-10.1) Total Bilirubin 1.0 mg/dl (0.2-1) Direct Bilirubin 0.2 mg/dl (0-0.2) Aspartate Amino Transf (AST/SGOT) 18 U/L (15-37) Alanine Aminotransferase (ALT/SGPT) 23 U/L (12-78) Alkaline Phosphatase 81 U/L (45-117) Total Protein 7.2 gm/dl (6.4-8.2) Albumin 4.0 gm/dl (3.4-5.0) Lipase 124 U/L (73-393) Laboratory results as stated above per my review. Medications Administered Medications (Trade) Dose Ordered Sig/Oscar Route Start Time Stop Time Status Last Admin Dose Admin Sodium Chloride 1,000 ml @ 999 mls/hr Q1H1M STAT IV 05/19/17 19:19 05/19/17 20:19 DC 05/19/17 20:06 999 MLS/HR Ondansetron HCl (Zofran Inj) 4 mg NOW STAT IV 05/19/17 19:19 05/19/17 19:21 DC 05/19/17 20:06 4 MG ED Course 1917: Previous medical records were reviewed. The patient was evaluated in room A4B. A complete history and physical examination was performed. 1918: Ordered Zofran Inj 4 mg IV, NSS 1000 ml @ 999 mls/hr IV. Medical Decision Differential considered: pancreatitis, hepatitis, or acute cholecystitis, AAA, UTI, pyelonephritis, kidney stones, appendicitis, diverticulitis, shingles, bowel obstruction mesenteric ischemia, intussusception,hernia, testicular torsion. This is a 81-year-old male who presents to the ED with a chief complaint of concerns for small bowel obstruction. The patient states that over the past 2 hours he has had decreased output from his colostomy as well as some crampy abdominal pain that comes in waves. The patient had one episode of vomiting tonight. The patient denies any other significant symptoms. He reports a history of colostomy. The patient's exam is noted above. He has a colostomy in place. There is some tenderness to palpation of the abdomen in the left upper and lower quadrants. There is stool in the colostomy and there appears to be some air. A CT scan of the abdomen pelvis was noted above. CBC, complete metabolic panel was unremarkable. Lipase is negative. The patient was told the results. He did not want pain medication. He was given IV fluids. He states that his bowels seem to be moving a little better now and his pain seems to be subsiding. He is getting some gas in his colostomy bag. The patient was advised of the findings on the CT scan. Because his symptoms seem to be improving in his bowels appear to be moving, he was given the option of either being observed overnight for going home to see how things go. He elected to go home. He will follow-up with his surgeon, Dr. Izaguirre in 1-2 days for recheck. He will return if his symptoms worsen. Medication Reconcilliation Current Medication List: was personally reviewed by me Blood Pressure Screening Patient's blood pressure: Elevated blood pressure Blood pressure disposition: Elevated BP felt to be situational Impression Primary Impression: Partial small bowel obstruction Scribe Attestation The scribe's documentation has been prepared under my direction and personally reviewed by me in its entirety. I confirm that the note above accurately reflects all work, treatment, procedures, and medical decision making performed by me. Departure Information Dispostion Home / Self-Care Referrals No Doctor, Assigned (PCP) Antonio Cameron M.D. Patient Instructions My [facility] Additional Instructions Return for increased pain, vomiting, fevers, no output of air or stool into her colostomy bag. Follow up with Dr. Cameron for recheck in 1-2 days. Drink plenty of fluids.
[2017-05-19 21:49] VITALS: BP 133/89; PULSE 76; O2SAT 96
== END 2017-05-19 21:50 | disposition home or self-care (01) ==
LOC: C.EDB 18:00 → C.EDA 21:50
DX: K56.600 Partial intestinal obstruction, unspecified as to cause (principal); Z90.49 Acquired absence of other specified parts of digestive tract; Z93.3 Colostomy status; I48.91 Unspecified atrial fibrillation; Z85.038 Personal history of other malignant neoplasm of large intestine; Z80.9 Family history of malignant neoplasm, unspecified; Z82.49 Family history of ischemic heart disease and other diseases of the circulatory system; Z79.899 Other long term (current) drug therapy

== ENCOUNTER → 2017-05-25 | Outpatient (CLI) | payer BC ==
[~2017-05-25] MED LIST changes: -CRD30 PO; +DILT120C68 PO; -SUCR5SUS PO
--- NOTE | 2017-05-25 09:19 | DIAGNOSTIC IMAGING REPORT ---
ULTRASOUND RIGHT UPPER QUADRANT ABDOMEN CLINICAL HISTORY: Right upper quadrant abdominal pain. COMPARISON STUDY: Abdominal CT dated 05/19/2017. TECHNIQUE: Real-time, grayscale, and color flow sonography of the right upper quadrant of the abdomen was performed. Images are reviewed in the transverse and longitudinal planes. FINDINGS: Liver: The liver is top normal in size and normal in echotexture. There is no intrahepatic biliary ductal dilatation. The main portal vein is patent. Gallbladder: A 3 mm gallbladder polyp is incidentally noted. The gallbladder is otherwise normal in appearance. No gallstones are identified. There is no gallbladder wall thickening or pericholecystic fluid. A sonographic Funez's sign is reportedly absent. The common bile duct measures up to 0.4 cm in diameter. Pancreas: Visualized portions of the pancreatic head and body are normal in appearance. Right kidney: Survey images of the right kidney demonstrate cortical atrophy. There is no hydronephrosis. A 1.1 cm cyst is incidentally noted. Ascites: None. IMPRESSION: No acute sonographic abnormality is identified in the right upper quadrant. No gallstones are seen. Electronically signed by: Behzad Bradley M.D. 05/25/2017 9:17 AM Dictated Date/Time: 05/25/2017 9:16 AM
== END | disposition home or self-care (01) ==
LOC: C.ULTR 07:47
PROVIDERS: ATTEND Physician Assistant
DX: R10.9 Unspecified abdominal pain (principal)

== ENCOUNTER → 2017-05-28 | Outpatient (CLI) | payer BC ==
[2017-05-28 11:43] LABS: ESTIMATED AVERAGE GLUCOSE 140 mg/dl; HA1C FLAG Normal (Normal)
== END | disposition home or self-care (01) ==
LOC: C.LABBC 07:54
PROVIDERS: ATTEND Physician Assistant Medical
DX: E11.9 Type 2 diabetes mellitus without complications (principal)

== ENCOUNTER → 2017-12-14 | Outpatient (CLI) | payer BC ==
[~2017-12-14] MED LIST changes: +METO100T44 PO; -METO1TAB69 PO
[2017-12-14 11:15] LABS: HEMOGLOBIN A1C 7.5 % (4.5-5.6)
[2017-12-14 11:41] LABS: ALBUMIN 3.9 gm/dl (3.4-5.0); ALT/SGPT 24 U/L (12-78); AST/SGOT 16 U/L (15-37); BLOOD UREA NITROGEN 18 mg/dl (7-18); CALCIUM 8.9 mg/dl (8.5-10.1); CARBON DIOXIDE 28 mmol/L (21-32); CREATININE 1.39 mg/dl (0.60-1.40); GLUCOSE 174 mg/dl (70-99); POTASSIUM 4.3 mmol/L (3.5-5.1); SODIUM 137 mmol/L (136-145)
[2017-12-14 11:43] LABS: ALKALINE PHOSPHATASE 70 U/L (45-117); CHOLESTEROL 106 mg/dl (0-200); LDL CHOLESTEROL CALCULATED 26 mg/dl
== END | disposition home or self-care (01) ==
LOC: C.LABBC 07:32
PROVIDERS: ATTEND Physician Assistant Medical
DX: I10 Essential (primary) hypertension (principal); E11.9 Type 2 diabetes mellitus without complications

== ENCOUNTER → 2017-12-27 | Outpatient (CLI) | payer BC ==
[~2017-12-27] MED LIST changes: -MULT-506 PO
--- NOTE | 2017-12-27 11:38 | DIAGNOSTIC IMAGING REPORT ---
CHEST 2 VIEWS ROUTINE CLINICAL HISTORY: Cough. COMPARISON STUDY: Chest radiograph May 19, 2017. FINDINGS: There is no pneumothorax or pleural effusion. Pulmonary vascularity is normal. Mild left lower lung opacity is present. Mild cardiomegaly is noted without evidence for pulmonary edema. IMPRESSION: Minimal left lower lung opacity. Atelectasis is favored however a small focus of pneumonia could appear similar. Radiographic follow up is recommended to ensure resolution. Electronically signed by: Sami Tinajero M.D. 12/27/2017 11:37 AM Dictated Date/Time: 12/27/2017 11:35 AM
== END | disposition home or self-care (01) ==
LOC: C.RADBC 11:09
PROVIDERS: ATTEND Nurse Practitioner Adult Health
DX: R05 Cough (principal); R09.89 Other specified symptoms and signs involving the circulatory and respiratory systems

== ENCOUNTER 2018-02-27 21:44 | Inpatient (IN) | payer BC, OTHER ==
[~2018-02-27] VITALS: Ht 177.8 cm; Wt 84.8 kg
[2018-02-27] MEDS ORDERED: SODIUM CHLORIDE 0.9% 1000ML 1,000 ML IV SCH (21:58)
--- NOTE | 2018-02-27 22:06 | DIAGNOSTIC IMAGING REPORT ---
HEAD WITHOUT CONTRAST (CT) CT DOSE: 601.98 mGy.cm HISTORY: Mental status change Stroke TECHNIQUE: Multiaxial CT images of the head were performed without the use of intravenous contrast. A dose lowering technique was utilized adhering to the principles of ALARA. Comparison: None. Findings: The paranasal sinuses and mastoid air cells are clear. The calvarium and skull base are intact. The ventricles and sulci are within normal limits. There is no mass, hematoma, midline shift, or acute infarct. Mild age-related chronic small vessel change Impression: No acute intracranial abnormality. The above report was generated using voice recognition software. It may contain grammatical, syntax or spelling errors. Electronically signed by: Jason Khan M.D. 02/27/2018 10:05 PM Dictated Date/Time: 02/27/2018 10:04 PM
[2018-02-27 22:13] LABS: BASO % 0.4 %; BASO ABS # 0.04 K/uL (0-0.2); EOS % 1.3 %; EOS ABS # 0.12 K/uL (0-0.5); HEMATOCRIT 44.9 % (42-52); HEMOGLOBIN 15.6 g/dL (14.0-18.0); IG# 0.04 K/uL (0.00-0.02); LYMPH % 16.9 %; LYMPH ABS # 1.54 K/uL (1.2-3.4); MEAN CELL VOLUME 86.5 fL (80-100); MEAN CORPUSCULAR HEMOGLOBIN 30.1 pg (25-34); MEAN CORPUSCULAR HGB CONC 34.7 g/dl (32-36); MEAN PLATELET VOLUME 9.8 fL (7.4-10.4); MONO % 9.6 %; MONO ABS # 0.88 K/uL (0.11-0.59); NEUT % 71.4 %; PLATELET COUNT 176 K/uL (130-400); RED CELL DISTRIBUTION WIDTH CV 13.5 % (11.5-14.5); RED CELL DISTRIBUTION WIDTH SD 42.5 fL (36.4-46.3); WHITE BLOOD COUNT 9.12 K/uL (4.8-10.8)
--- NOTE | 2018-02-27 22:16 | DIAGNOSTIC IMAGING REPORT ---
CHEST ONE VIEW PORTABLE CLINICAL HISTORY: Stroke mental status change COMPARISON STUDY: 01/26/2018 FINDINGS: Mild stable cardiomegaly. The diaphragms are smooth. The lungs are clear. IMPRESSION: No acute process. The above report was generated using voice recognition software. It may contain grammatical, syntax or spelling errors. Electronically signed by: Jason Khan M.D. 02/27/2018 10:15 PM Dictated Date/Time: 02/27/2018 10:14 PM
[2018-02-27 22:25] LABS: PTT PATIENT 27.1 SECONDS (21.0-31.0)
[2018-02-27] MEDS ORDERED: FRCT/ PO (22:25)
[2018-02-27] MEDS ORDERED: OPTIRAY 320 IV PRN (22:30)
[2018-02-27 22:36] LABS: BLOOD UREA NITROGEN 16 mg/dl (7-18); CALCIUM 9.4 mg/dl (8.5-10.1); CARBON DIOXIDE 26 mmol/L (21-32); CKMB 1.1 ng/ml (0.5-3.6); CREATININE 1.73 mg/dl (0.60-1.40); GLUCOSE 197 mg/dl (70-99); POTASSIUM 4.3 mmol/L (3.5-5.1); SODIUM 138 mmol/L (136-145)
[2018-02-28] VITALS (8 sets, daily range): BP systolic 130–159; BP diastolic 80–99; PULSE 79–97; TEMP 36.4–37.2; O2SAT 95–100; Ht 177.8 cm; Wt 84.8 kg
[2018-02-28] MEDS ORDERED: ASPIRIN 324 MG CHEW PO STA (00:50)
--- NOTE | 2018-02-28 01:32 | EMERGENCY ROOM VISIT NOTE ---
History Report prepared by Regi: Kelvin Ortega Under the Supervision of: Dr. Jay Rojas D.O. First contact with patient: 21:51 Chief Complaint: STROKE SYMPTOMS Stated Complaint: CONFUSION, BABBLING, ARM NUMBNESS History of Present Illness The patient is an 82 year old male who presents to the Emergency Room with complaints of stroke-like symptoms. The patient's son at bedside notes that his mother states the patient started to exhibit "garbled speech" at around 1800, 3 hours and 50 minutes prior to arrival. The patient's son notes that the speech confusion worsened as they drove to the emergency department. The patient is complaining of a headache at this time. he denies headache, change in vision, fevers, chest pain, shortness of breath, nausea, vomiting, diarrhea, pain with urination. Source of History: patient, family Onset: 3 hrs 50 minutes CRITICAL CARE TRANSPORT NURSE Position: head Quality: ache, other (garbble speech) Timing: worsening Associated Symptoms: + headache, No chest pain, No SOB, No nausea, No vomiting Review of Systems See HPI for pertinent positives & negatives. A total of 10 systems reviewed and were otherwise negative. Past Medical & Surgical Medical Problems: (1) Atrial fibrillation (2) Atrial fibrillation with RVR (3) Bowel obstruction (4) Colon cancer Surgical Problems: (1) S/P appendectomy Family History Cancer Hypertension Social History Smoking Status: Former Smoker Drug Use: none Marital Status: Housing Status: lives with family Occupation Status: retired Current/Historical Medications Scheduled Diltiazem Hcl Ext Rel (Tiazac), 120 MG PO DAILY Glipizide (Glipizide Er), 5 MG PO QAM Metoprolol Succ (Toprol Xl) (Toprol-Xl ), 100 MG PO QAM Pantoprazole (Protonix), 40 MG PO QAM Ranitidine Hcl (Zantac), 150 MG PO HS Rivaroxaban (Xarelto), 20 MG PO QAM Simvastatin (Zocor), 40 MG PO QPM Scheduled PRN Acetamin/Butalbital/Caffeine (Fioricet), 1 TAB PO UD PRN for Migraine Allergies Coded Allergies: Hydromorphone (Verified Allergy, Unknown, HALLUCINATIONS, 12/22/17) Lorazepam (Verified Allergy, Unknown, HALLUCINATIONS, 12/22/17) Tetanus Toxoid (Verified Allergy, Unknown, BLISTERS AND EYES SWELLING, 12/22) WAS GIVEN HORSE-SERUM TYPE TETANUS Physical Exam Vital Signs Date Time Temp Pulse Resp B/P (MAP) Pulse Ox O2 Delivery O2 Flow Rate FiO2 02/28/18 01:17 94 20 144/95 98 Room Air 02/27/18 23:40 94 20 172/105 98 Room Air 02/27/18 22:35 85 22 155/99 96 Room Air 02/27/18 22:15 81 32 149/113 96 Room Air 02/27/18 22:06 95 02/27/18 21:49 96 Room Air 02/27/18 21:46 36.6 97 32 165/102 99 Room Air Physical Exam GENERAL: Sitting up in bed, anxious, disheveled, non-toxic EYE EXAM: normal conjunctiva. PERRL and EOM's intact. OROPHARYNX: no exudate, no erythema, lips, buccal mucosa, and tongue normal and mucous membranes are moist NECK: supple, no nuchal rigidity, no adenopathy, non-tender LUNGS: Clear to auscultation. Normal chest wall mechanics HEART: no murmurs, S1 normal and S2 normal ABDOMEN: abdomen soft, non-tender, normo-active bowel sounds, no masses, no rebound or guarding. BACK: Back is symmetrical on inspection and there is no deformity, no midline tenderness, no CVA tenderness. SKIN: no rashes and no bruising UPPER EXTREMITIES: upper extremities are grossly normal. LOWER EXTREMITIES: No pitting edema. NEURO EXAM: Alert intermittently following commands, cranial nerves II-XII intact, no weakness of arms, no weakness of legs. No drift. Gross sensation intact. Awake and alert. Word finding and stuttering. Medical Decision & Procedures ER Provider Diagnostic Interpretation: Radiology results as stated below per my review and the radiologist's interpretation: CHEST ONE VIEW PORTABLE CLINICAL HISTORY: Stroke mental status change COMPARISON STUDY: 01/26/2018 FINDINGS: Mild stable cardiomegaly. The diaphragms are smooth. The lungs are clear. IMPRESSION: No acute process. The above report was generated using voice recognition software. It may contain grammatical, syntax or spelling errors. Electronically signed by: Jason Khan M.D. 02/27/2018 10:15 PM Dictated Date/Time: 02/27/2018 10:14 PM HEAD WITHOUT CONTRAST (CT) CT DOSE: 601.98 mGy.cm HISTORY: Mental status change Stroke TECHNIQUE: Multiaxial CT images of the head were performed without the use of intravenous contrast. A dose lowering technique was utilized adhering to the principles of ALARA. Comparison: None. Findings: The paranasal sinuses and mastoid air cells are clear. The calvarium and skull base are intact. The ventricles and sulci are within normal limits. There is no mass, hematoma, midline shift, or acute infarct. Mild age-related chronic small vessel change Impression: No acute intracranial abnormality. The above report was generated using voice recognition software. It may contain grammatical, syntax or spelling errors. Electronically signed by: Jason Khan M.D. 02/27/2018 10:05 PM Dictated Date/Time: 02/27/2018 10:04 PM CTA HEAD: No evidence for intracranial arterial occlusion or high-grade stenosis stenosis. No visualized aneurysm. Radiologist: Guillermo Hennessy MD CTA NECK: No evidence for arterial occlusion or significant stenosis. Linear filling defect along the periphery of the right proximal internal carotid artery which could represent intimal flap of a short segment dissection. No significant luminal narrowing. No evidence for vertebral dissection. Aortic ectasia, caliber approximately 3.5 cm at the arch. Radiologist: Guillermo Hennessy MD. Laboratory Results 02/27/18 22:00 Red Blood Count 5.19, Mean Corpuscular Volume 86.5, Mean Corpuscular Hemoglobin 30.1, Mean Corpuscular Hemoglobin Concent 34.7, Mean Platelet Volume 9.8, Neutrophils (%) (Auto) 71.4, Lymphocytes (%) (Auto) 16.9, Monocytes (%) (Auto) 9.6, Eosinophils (%) (Auto) 1.3, Basophils (%) (Auto) 0.4, Neutrophils # (Auto) 6.50, Lymphocytes # (Auto) 1.54, Monocytes # (Auto) 0.88, Eosinophils # (Auto) 0.12, Basophils # (Auto) 0.04 02/27/18 22:00 Test 02/27/18 21:56 02/27/18 22:00 Bedside Glucose 184 mg/dl (70-99) White Blood Count 9.12 K/uL (4.8-10.8) Red Blood Count 5.19 M/uL (4.7-6.1) Hemoglobin 15.6 g/dL (14.0-18.0) Hematocrit 44.9 % (42-52) Mean Corpuscular Volume 86.5 fL (80-100) Mean Corpuscular Hemoglobin 30.1 pg (25-34) Mean Corpuscular Hemoglobin Concent 34.7 g/dl (32-36) Platelet Count 176 K/uL (130-400) Mean Platelet Volume 9.8 fL (7.4-10.4) Neutrophils (%) (Auto) 71.4 % Lymphocytes (%) (Auto) 16.9 % Monocytes (%) (Auto) 9.6 % Eosinophils (%) (Auto) 1.3 % Basophils (%) (Auto) 0.4 % Neutrophils # (Auto) 6.50 K/uL (1.4-6.5) Lymphocytes # (Auto) 1.54 K/uL (1.2-3.4) Monocytes # (Auto) 0.88 K/uL (0.11-0.59) Eosinophils # (Auto) 0.12 K/uL (0-0.5) Basophils # (Auto) 0.04 K/uL (0-0.2) RDW Standard Deviation 42.5 fL (36.4-46.3) RDW Coefficient of Variation 13.5 % (11.5-14.5) Immature Granulocyte % (Auto) 0.4 % Immature Granulocyte # (Auto) 0.04 K/uL (0.00-0.02) Prothrombin Time 10.7 SECONDS (9.0-12.0) Prothromb Time International Ratio 1.0 (0.9-1.1) Activated Partial Thromboplast Time 27.1 SECONDS (21.0-31.0) Partial Thromboplastin Ratio 1.0 Anion Gap 7.0 mmol/L (3-11) Est Creatinine Clear Calc Drug Dose 35.2 ml/min Estimated GFR () 42.3 Estimated GFR (Non- 36.5 BUN/Creatinine Ratio 9.2 (10-20) Calcium Level 9.4 mg/dl (8.5-10.1) Magnesium Level 2.3 mg/dl (1.8-2.4) Total Creatine Kinase 65 U/L (39-308) Creatine Kinase MB 1.1 ng/ml (0.5-3.6) Creatine Kinase MB Ratio 1.7 (0-3.0) Troponin I < 0.015 ng/ml (0-0.045) Laboratory results per my review. Medications Administered Medications (Trade) Dose Ordered Sig/Oscar Route Start Time Stop Time Status Last Admin Dose Admin Sodium Chloride 1,000 ml @ 50 mls/hr Q20H IV 02/27/18 21:58 03/29/18 21:57 02/27/18 22:15 50 MLS/HR Aspirin (Aspirin Chew) 324 mg NOW STAT PO 02/28/18 00:50 02/28/18 00:52 DC 02/28/18 01:16 324 MG ECG Per My Interpretation Indication: altered mental status (stroke-like sx) Rate (beats per minute): 108 Rhythm: atrial fibrillation (with RVR) Findings: RBBB Comparison ECG Date: 02/17/2017 Change: no significant change ED Course ED COURSE: Vital signs were reviewed and showed hypertensive vitals. The patients medical record was reviewed The above diagnostic studies were performed and reviewed. ED treatments and interventions as stated above. 2151: The patient was evaluated in room B1. A complete history and physical examination was performed. 2218: I discussed the case with Dr. Bazzi - Neurology. He states do not administer TPA. 2158: Ordered Sodium Chloride 1000 mL @ 50 mL/hr IV. 2320: I confirmed with the family that the patient has no contrast allergy at this time. 0044: [facility] suggests full dose aspirin and admitting the patient to medicine. 0052: I discussed the case with Dr. Richar Murray [facility]. He will evaluate for further intervention. []: Upon reevaluation, the patient is []. I discussed my findings with the [ patient] and [] understands and agrees with the treatment plan. Based on the patients age, coexisting illnesses, exam and lab findings the decision to treat as an [inpatient][outpatient] was made. The patient remained stable while under my care. [The patient appeared well at the time of discharge.] [The patient will be evaluated for further management.] Medical Decision Differential Diagnosis includes but is not limited to ischemic Stroke, hemorrhagic stroke, bells palsy, mass, neoplasm, migraine headache, seizure, subarachnoid hemorrhage, TIA, and transient global amnesia. Patient is an 82-year-old male that presents to ER for slurred speech and stuttering which started at 6 PM tonight. He presented around 10 PM. He has clear aphasia. He is otherwise neurologically intact. CT head was negative. Stroke alert was called. He is on a 10 A inhibitor. Discussed with Dr. Alicja beach who recommended CTAs and he is clearly not a candidate for TPA at this time. CTA of the neck shows questionable small carotid dissection. This was discussed with [place] neurology via telephone. They recommended a full dose aspirin currently and adding an additional 81 mg daily from thereon after. He is already on simvastatin. Discussed with her hospitalist who was agreeable to admitting the patient with the stroke and dissection. Patient is otherwise neurologically intact and appears to be slightly improving. Medication Reconcilliation Current Medication List: was personally reviewed by me Blood Pressure Screening Patient's blood pressure: Elevated blood pressure Blood pressure disposition: Elevated BP felt to be situational Consults Time Called: 2214 Consulting Physician: Dr. Bazzi - Neurology Returned Call: [phone] I discussed the case with Dr. [place]. He states do not administer TPA. Additional Consults: Time Called: 33 Consulted Physician: [facility] Returned Call: 44 Additional Comments: [facility] Neurology suggests full dose aspirin and admitting the patient to medicine. Time Called: 51 Consulted Physician: Dr. Richar BELCHER Returned Call: 51 Additional Comments: I discussed the case with Dr. Richar BELCHER. He will evaluate for further intervention. Impression Primary Impression: CVA (cerebral vascular accident) Additional Impressions: Stroke Carotid artery dissection Scribe Attestation The scribe's documentation has been prepared under my direction and personally reviewed by me in its entirety. I confirm that the note above accurately reflects all work, treatment, procedures, and medical decision making performed by me. Departure Information Dispostion Being Evaluated By Hospitalist Referrals Meli Pruett ., MELONIE (PCP) Patient Instructions My [facility] Stroke History Time Last Known Well 1800 3 hours and 50 minutes CRITICAL CARE TRANSPORT NURSE Stroke t-PA Criteria Reviewed Does NOT meet criteria for t-PA Reason t-PA Not Given Treatment not indicated Problem Qualifiers Primary Impression: CVA (cerebral vascular accident) CVA mechanism: unspecified Qualified Codes: I63.9 - Cerebral infarction, unspecified Additional Impressions: Stroke CVA mechanism: unspecified Qualified Codes: I63.9 - Cerebral infarction, unspecified
[2018-02-28] MEDS ORDERED: ALUMINUM/MAGNESIUM/SIMETH (MAALOX MAX) 30 ML UDC PO PRN (02:30)
[2018-02-28] MEDS ORDERED: POLYETHYLENE (MIRALAX) 17 GM PACK PO PRN (02:30)
[2018-02-28] MEDS ORDERED: MAGNESIUM HYDROXIDE SUSP 30 ML UDC PO PRN (02:30)
[2018-02-28] MEDS ORDERED: ONDANSETRON INJ 2 MG/ML 2 ML VIAL IV PRN (02:30)
[2018-02-28] MEDS ORDERED: ACETAMINOPHEN 325 MG TAB PO PRN (02:30)
[2018-02-28] MEDS ORDERED: NITROGLYCERIN 0.4 MG SL PER TAB CHARGE SL PRN (02:30)
[2018-02-28] MEDS ORDERED: PHARMACIST DISCHARGE MED REC CONSULT PRN (02:30)
--- NOTE | 2018-02-28 02:50 | History and Physical ---
History & Physical Date & Time of Service: Feb 28, 2018 at 02:49 Chief Complaint: Confusion, Babbling, Arm Numbness Primary Care Physician: Meli Pruett CRNP History of Present Illness Source: patient 82 year old male who presents with stroke-like symptoms. History is per chart due to lack of family present during patient's aphasia. PER ED note, patient' s son reports the patient had "garbled speech" at around 6 PM. This continued through to his arrival int the ED. The patient also reports headache. ED Physician discussed case with Dr. Helm neurology. CTA of the neck shows possible small carotid dissection. This was discussed with [place] neurology via telephone. He Per Neurology recommendation, he was given Aspirin Past Medical/Surgical History Medical Problems: (1) Atrial fibrillation (2) Atrial fibrillation with RVR (3) Bowel obstruction (4) Colon cancer (5) Partial small bowel obstruction (6) Small bowel obstruction Surgical Problems: (1) S/P appendectomy PastMedHx: HTN Afib ( on xarelto) HLD T2DM Colon cancer (s/p resection ) GERD SurgHx: Left inguinal hernia repair Family History Cancer Hypertension Social History Smoking Status: Former Smoker Smokeless Tobacco Use: No Alcohol Use: none Drug Use: none Marital Status: Housing status: lives with family Occupational Status: retired Immunizations History of Influenza Vaccine: Yes Influenza Vaccine Date: Jun 24, 2007 History of Tetanus Vaccine?: No History of Pneumococcal: No History of Hepatitis B Vaccine: No Allergies Coded Allergies: Hydromorphone (Verified Allergy, Unknown, HALLUCINATIONS, 12/22/17) Lorazepam (Verified Allergy, Unknown, HALLUCINATIONS, 12/22/17) Tetanus Toxoid (Verified Allergy, Unknown, BLISTERS AND EYES SWELLING, 12/22) WAS GIVEN HORSE-SERUM TYPE TETANUS Home Medications Scheduled Aspirin (Aspirin), 81 MG PO QAM Diltiazem Hcl Ext Rel (Tiazac), 120 MG PO DAILY Glipizide (Glipizide Er), 5 MG PO QAM Metoprolol Succ (Toprol Xl) (Toprol-Xl ), 100 MG PO QAM Pantoprazole (Protonix), 40 MG PO QAM Ranitidine Hcl (Zantac), 150 MG PO HS Rivaroxaban (Xarelto), 20 MG PO QAM Simvastatin (Zocor), 40 MG PO QPM Scheduled PRN Acetamin/Butalbital/Caffeine (Fioricet), 1 TAB PO UD PRN for Migraine Review of Systems could not assess due to aphasia Physical Exam Vital Signs Date Time Temp Pulse Resp B/P (MAP) Pulse Ox O2 Delivery O2 Flow Rate FiO2 02/28/18 02:07 80 02/28/18 01:17 94 20 144/95 98 Room Air 02/27/18 23:40 94 20 172/105 98 Room Air 02/27/18 22:35 85 22 155/99 96 Room Air 02/27/18 22:15 81 32 149/113 96 Room Air 02/27/18 22:06 95 02/27/18 21:49 96 Room Air 02/27/18 21:46 36.6 97 32 165/102 99 Room Air GENERAL: alert, no distress, non-toxic EYE EXAM: normal conjunctiva, PERRL and EOM's grossly intact OROPHARYNX: no exudate, no erythema, lips, buccal mucosa, and tongue normal and mucous membranes are moist NECK: supple, no nuchal rigidity, no adenopathy, non-tender LUNGS: Clear to auscultation. Normal chest wall mechanics HEART: no murmurs, S1 normal and S2 normal ABDOMEN: abdomen soft, non-tender, normo-active bowel sounds, no masses, no rebound or guarding. BACK: Back is symmetrical on inspection and there is no deformity SKIN: no rashes and no bruising UPPER EXTREMITIES: upper extremities are grossly normal. LOWER EXTREMITIES: No pitting edema. NEURO EXAM: Aphasic, cranial nerves II-XII s intact, normal speech, no weakness of arms, no weakness of legs. Diagnostics Laboratory Results Results Past 24 Hours Test 02/27/18 21:56 02/27/18 22:00 02/28/18 02:30 Range/Units Bedside Glucose 184 70-99 mg/dl White Blood Count 9.12 4.8-10.8 K/uL Red Blood Count 5.19 4.7-6.1 M/uL Hemoglobin 15.6 14.0-18.0 g/dL Hematocrit 44.9 42-52 % Mean Corpuscular Volume 86.5 80-100 fL Mean Corpuscular Hemoglobin 30.1 25-34 pg Mean Corpuscular Hemoglobin Concent 34.7 32-36 g/dl Platelet Count 176 130-400 K/uL Mean Platelet Volume 9.8 7.4-10.4 fL Neutrophils (%) (Auto) 71.4 % Lymphocytes (%) (Auto) 16.9 % Monocytes (%) (Auto) 9.6 % Eosinophils (%) (Auto) 1.3 % Basophils (%) (Auto) 0.4 % Neutrophils # (Auto) 6.50 1.4-6.5 K/uL Lymphocytes # (Auto) 1.54 1.2-3.4 K/uL Monocytes # (Auto) 0.88 0.11-0.59 K/uL Eosinophils # (Auto) 0.12 0-0.5 K/uL Basophils # (Auto) 0.04 0-0.2 K/uL RDW Standard Deviation 42.5 36.4-46.3 fL RDW Coefficient of Variation 13.5 11.5-14.5 % Immature Granulocyte % (Auto) 0.4 % Immature Granulocyte # (Auto) 0.04 0.00-0.02 K/uL Prothrombin Time 10.7 9.0-12.0 SECONDS Prothromb Time International Ratio 1.0 0.9-1.1 Activated Partial Thromboplast Time 27.1 21.0-31.0 SECONDS Partial Thromboplastin Ratio 1.0 Sodium Level 138 136-145 mmol/L Potassium Level 4.3 3.5-5.1 mmol/L Chloride Level 105 98-107 mmol/L Carbon Dioxide Level 26 21-32 mmol/L Anion Gap 7.0 3-11 mmol/L Blood Urea Nitrogen 16 7-18 mg/dl Creatinine 1.73 0.60-1.40 mg/dl Est Creatinine Clear Calc Drug Dose 35.2 ml/min Estimated GFR () 42.3 Estimated GFR (Non- 36.5 BUN/Creatinine Ratio 9.2 10-20 Random Glucose 197 70-99 mg/dl Calcium Level 9.4 8.5-10.1 mg/dl Magnesium Level 2.3 1.8-2.4 mg/dl Total Creatine Kinase 65 39-308 U/L Creatine Kinase MB 1.1 0.5-3.6 ng/ml Creatine Kinase MB Ratio 1.7 0-3.0 Troponin I < 0.015 0-0.045 ng/ml Diagnostic Radiology HEAD WITHOUT CONTRAST (CT) CT DOSE: 601.98 mGy.cm HISTORY: Mental status change Stroke TECHNIQUE: Multiaxial CT images of the head were performed without the use of intravenous contrast. A dose lowering technique was utilized adhering to the principles of ALARA. Comparison: None. Findings: The paranasal sinuses and mastoid air cells are clear. The calvarium and skull base are intact. The ventricles and sulci are within normal limits. There is no mass, hematoma, midline shift, or acute infarct. Mild age-related chronic small vessel change Impression: No acute intracranial abnormality. CHEST ONE VIEW PORTABLE CLINICAL HISTORY: Stroke mental status change COMPARISON STUDY: 01/26/2018 FINDINGS: Mild stable cardiomegaly. The diaphragms are smooth. The lungs are clear. IMPRESSION: No acute process. The above report was generated using voice recognition software. It may contain grammatical, syntax or spelling errors. Electronically signed by: Jason Khan M.D. 02/27/2018 10:15 PM Dictated Date/Time: 02/27/2018 10:14 PM Impression Assessment and Plan 82 yo M with PMHx of HTN, Afib ( on Xarelto), HLD, T2DM, Colon cancer (s/p resection ') presenting with acute aphasia episode Aphasia - likely secondary to CVA - CT Head negative , - CTA head, neck showed possible carotid dissection thought unclear - Stroke alert called, ED Physician Discussed with Dr. Helm (Neurology) - MRI Brain ordered, F/u to confirm CVA - Consider Vascular surgery if carotid dissection suspected HTN - Holding antihypertensives(Metoprolol) given possible CVA - allow for permissive hypertension Afib - hold Metoprolol, Xarelto given possible carotid dissection T2DM - Glipizide held - ISS GERD - Ranitidine, Protonix DVT PPX - SCD Code status: Full Resuscitation PT OT Attending addendum: I have physically seen this patient, have supervised the medical residents activities, and agree with the H&P unless as otherwise noted. Assessment and Plan: Aphasia/CVA/hypertension/atrial fibrillation-- The patient will be admitted to telemetry for serial cardiac enzymes, serial EKG's, cardiac rhythm monitoring and a 2-D echocardiogram with Dopplers. CT head negative. CTA head neck questioned possible carotid dissection. Stroke alert called with [facility] [place]. MRI brain without contrast for follow-up. For now hold metoprolol and Xarelto. If anticoagulation to continue place on heparin. TIA admission plan protocol. Consult PT/OT/social media content specialist/neurology. Diabetes mellitus-- Hold glipizide. Place on Accu-Cheks before meals and at bedtime with NovoLog coverage per scale. Remainder of orders and notations as above Resuscitation Status VTE Prophylaxis Will order VTE Prophylaxis: Yes Note Total Time: Critical Care 30 - 74 minutes Resident Tracking Resident Involvement: Resident Care Provided Care Provided: Adult Hospital Medicine
[2018-02-28] MEDS ORDERED: GLUCAGON FOR INJ 1 MG VIAL IM PRN (03:45)
[2018-02-28] MEDS ORDERED: GLUCOSE 40% GEL 15 GM TUBE PO PRN (03:45)
[2018-02-28] MEDS ORDERED: CARBOHYDRATES FOR HYPOGLYCEMIA PO PRN (03:45)
[2018-02-28] MEDS ORDERED: GLUCOSE 10 TABS/TUBE PO PRN (03:45)
[2018-02-28] MEDS ORDERED: DEXTROSE 50% 50 ML SYR IV PRN (03:45)
[2018-02-28] MEDS ORDERED: INSULIN ASPART 100 UNITS/ML 3 ML PEN SC SCH (06:00)
--- NOTE | 2018-02-28 06:57 | DIAGNOSTIC IMAGING REPORT ---
CT ANGIOGRAPHY OF THE NECK WITH CONTRAST CLINICAL HISTORY: Stroke symptoms. Arm numbness. Confusion. Speech difficulty. COMPARISON STUDY: No previous studies for comparison. Technique: CT angiography of the carotid and vertebral arteries was obtained using [employer] 320 IV and 3D reconstruction on an independent workstation. NASCET criteria was utilized. A dose lowering technique was utilized adhering to the principles of ALARA. Findings: The bilateral common carotid, internal carotid and vertebral arteries are patent. There is no significant stenosis within these vessels. There is no significant atherosclerotic plaque. There is a apparent linear filling defect within the proximal right internal carotid artery shown on image [id number]. Otherwise, the vessels within the neck are within normal limits. There is no cervical lymphadenopathy. No suspicious osseous lesions are noted. The CTA of the head will be reported separately. IMPRESSION: 1. Apparent linear filling defect within the proximal right internal carotid artery. Although this could be artifactual, an intimal flap/short segment dissection is favored. 2. No stenosis within the major vessels of the neck. No significant atherosclerotic plaque. Electronically signed by: Sami Tinajero M.D. 02/28/2018 6:56 AM Dictated Date/Time: 02/28/2018 6:47 AM
--- NOTE | 2018-02-28 07:12 | DIAGNOSTIC IMAGING REPORT ---
HEAD CTA HISTORY: Mental status change. Stroke symptoms. TECHNIQUE: Multiaxial CT images of the head were performed after the intravenous administration of contrast to evaluate the major cerebral vessels. Maximum intensity projection images were also obtained. A dose lowering technique was utilized adhering to the principles of ALARA. COMPARISON: Head CT 02/27/2018. FINDINGS: There is no mass, hematoma, midline shift, or acute infarct. Visualized intracranial internal carotid arteries, distal vertebral arteries, and basilar artery are widely patent. There is no significant stenosis, occlusion, or aneurysm seen within the bilateral ACAs, MCAs, or outpatient case manager. IMPRESSION: No significant stenosis, occlusion, or aneurysm within the [place]. Electronically signed by: Guillermo Mccollum M.D. 02/28/2018 7:11 AM Dictated Date/Time: 02/28/2018 7:06 AM
[2018-02-28] MEDS: ASPIRIN 81 MG ECTAB PO SCH (08:16)
[2018-02-28] MEDS: PANTOprazole SOD 40 MG TAB PO SCH (08:16)
[2018-02-28] MEDS ORDERED: RIVAROXABAN 10 MG TAB PO SCH (09:00)
[2018-02-28] MEDS ORDERED: ASPIRIN 81 MG ECTAB PO SCH (09:00)
--- NOTE | 2018-02-28 09:08 | Neurology Consultation ---
Neurology Consultation Date of Consultation: Feb 28, 2018. Attending Physician: Ashish العراقي MD, PhD Primary Care Physician: Meli Pruett CRNP Reason for Consultation: Stroke History of Present Illness Source: patient, hospital records The patient is an 82-year-old male with a chief complaint of garbled speech that began acutely yesterday evening at around 6 p.m., about 3 and half hours prior to arrival in the emergency department. The symptoms worsened en route to the emergency department. He complains of experiencing an associated headache and blurry vision around the time of symptom onset as well, although denies any associated weakness or sensory loss. His headaches and vision disturbance have resolved. His speech difficulty has significantly improved although he continues to be aware of some subtle difficulty with word finding and speech fluency. The patient denies a past medical history of stroke or TIA. However, he does report a history of migraine with aura that began in his 20s or 30s. He has not experienced a migrainous episode in several years, however. Past medical history notable for atrial fibrillation for which he is currently taking Xarelto. He is also prescribed metoprolol and diltiazem. Past medical history also notable for hypertension, type 2 diabetes mellitus, hyperlipidemia, and colon cancer. A tele Stroke consultation was obtained in the emergency department. TPA was not administered. Patient was given full dose aspirin. I reviewed the images as well as the radiologist's interpretation of the CT of the head completed in the emergency department. This study reveals mild age related chronic small vessel ischemic disease. No evidence of hemorrhage or acute process. CT angiography of the head and neck have also been completed. CTA of the head is unremarkable. CTA of the neck reveals a proximal right carotid linear filling defect suggestive of an intimal flap verses a short segment dissection. Electrocardiogram reveals a heart rate of 108 beats per minute, atrial fibrillation with rapid ventricular response. 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 Smoking Status: Former smoker Drug Use: none Marital Status: Housing Status: lives with family Occupation Status: retired Allergies Coded Allergies: Hydromorphone (Verified Allergy, Unknown, HALLUCINATIONS, 12/22/17) Lorazepam (Verified Allergy, Unknown, HALLUCINATIONS, 12/22/17) Tetanus Toxoid (Verified Allergy, Unknown, BLISTERS AND EYES SWELLING, 12/22) WAS GIVEN HORSE-SERUM TYPE TETANUS Current Inpatient Medications Current Inpatient Medications Medications (Trade) Dose Ordered Sig/Oscar Route Start Time Stop Time Status Last Admin Dose Admin Ioversol (Optiray 320) 100 ml UD PRN IV 02/27/18 22:30 03/03/18 22:29 Acetaminophen (Tylenol Tab) 650 mg Q4H PRN PO 02/28/18 02:30 03/30/18 02:29 Al Hydrox/Mg Hydrox/Simethicone (Maalox Max Susp) 15 ml Q4H PRN PO 02/28/18 02:30 03/30/18 02:29 Magnesium Hydroxide (Milk Of Magnesia Susp) 30 ml Q12H PRN PO 02/28/18 02:30 03/30/18 02:29 Ondansetron HCl (Zofran Inj) 4 mg Q6H PRN IV 02/28/18 02:30 03/30/18 02:29 Nitroglycerin (Nitrostat Tab) 0.4 mg UD PRN SL 02/28/18 02:30 03/30/18 02:29 Aspirin (Ecotrin Tab) 81 mg QAM PO 02/28/18 09:00 03/30/18 08:59 02/28/18 08:16 81 MG Polyethylene (Miralax Powder Packet) 17 gm DAILY PRN PO 02/28/18 02:30 03/30/18 02:29 Miscellaneous Information (Pharmacist Discharge Med Rec Consult) 1 ea UD PRN N/A 02/28/18 02:30 03/30/18 02:29 Pantoprazole Sodium (Protonix Tab) 40 mg QAM PO 02/28/18 09:00 03/30/18 08:59 02/28/18 08:16 40 MG Ranitidine HCl (zANTac TAB) 150 mg HS PO 02/28/18 21:00 03/30/18 20:59 Simvastatin (Zocor Tab) 40 mg QPM PO 02/28/18 21:00 03/30/18 20:59 Insulin Aspart (novoLOG ASPART) SLIDING SCALE G... Q6 SC 02/28/18 06:00 03/30/18 05:59 Glucose (Glucose 40% Gel) 15-30 GRAMS 15 GRAMS... UD PRN PO 02/28/18 03:45 03/30/18 03:44 Glucose (Glucose Chew Tab) 4-8 Tablets 4 Tabl... UD PRN PO 02/28/18 03:45 03/30/18 03:44 Dextrose (Dextrose 50% 50ML Syringe) 25-50ML 25ML FOR ... UD PRN IV 02/28/18 03:45 03/30/18 03:44 Glucagon (Glucagon Inj) 1 mg UD PRN IM 02/28/18 03:45 03/30/18 03:44 Carbohydrates (Carbohydrates For Hypoglycemia) 15-30 GRAMS 15 grams if BSG 54-69... UD PRN PO 02/28/18 03:45 03/30/18 03:44 Review of Systems Constitutional: No fever chills Eyes: Transient blurry vision as per HPI. Currently no vision loss or diplopia ENT: No vertigo or hearing loss Cardiovascular: No chest pain or palpitations Respiratory: No cough or shortness of breath Neurological: As per history of present illness Musculoskeletal: No myalgia Skin: No rash A full 10 point review of systems was obtained from this patient with pertinent positives and negatives described in history of present illness and otherwise listed above. All remaining systems were reviewed and are negative. Physical Exam Vital Signs (Past 24 Hrs): Date Time Temp Pulse Resp B/P (MAP) Pulse Ox O2 Delivery O2 Flow Rate FiO2 02/28/18 07:30 37.0 81 16 130/88 (102) 97 Room Air 02/28/18 03:32 37.2 85 18 159/99 (119) 96 Room Air 02/28/18 03:10 37.2 85 18 159/99 Room Air 02/28/18 02:59 77 20 145/90 98 Room Air 02/28/18 02:07 80 02/28/18 01:17 94 20 144/95 98 Room Air 02/27/18 23:40 94 20 172/105 98 Room Air 02/27/18 22:35 85 22 155/99 96 Room Air 02/27/18 22:15 81 32 149/113 96 Room Air 02/27/18 22:06 95 02/27/18 21:49 96 Room Air 02/27/18 21:46 36.6 97 32 165/102 99 Room Air The patient is a well-developed elderly male. He is lying comfortably in bed. The patient is alert and fully oriented. Recent and remote memory intact. Attention and concentration normal. Patient does exhibit some speech hesitancy. He has mild difficulty with object naming, in particular small parts of objects such as the tip of the pen and clip. He also exhibited subtle difficulty with repetition and reading had lines from the newspaper out loud with. He made a few word substitutions and paraphasic errors. Speech comprehension is intact. Patient exhibits an age-appropriate fund of knowledge a normal vocabulary. Visual ness full to confrontation. Visual acuity normal. Pupils equal round react to light and accommodation. Eye movements normal. There is no nystagmus. Facial sensation intact. There is normal facial symmetry and strength. Hearing intact to finger rub bilaterally. Palate elevates to midline. Shoulder shrug intact. Tongue protrudes to midline. Sensation intact to all modalities in all 4 limbs. Deep tendon reflexes intact and symmetrical for the arms and legs bilaterally. Plantar responses downgoing bilaterally. There is no dysmetria with [id number] or heel to patino bilaterally. Ophthalmoscopic examination reveals normal-appearing optic discs and posterior segments. No papilledema or hemorrhages. Carotid pulses normal bilaterally, no bruits to auscultation. Gait and station not tested due to safety concerns. Patient exhibits normal muscle strength and tone for all 4 limbs. No atrophy. No abnormal movements observed. Laboratory Results Past 24 Hours: Test 02/27/18 22:00 02/27/18 22:12 02/28/18 05:44 02/28/18 07:16 RDW Standard Deviation 42.5 fL (36.4-46.3) RDW Coefficient of Variation 13.5 % (11.5-14.5) White Blood Count 9.12 K/uL (4.8-10.8) Red Blood Count 5.19 M/uL (4.7-6.1) Hemoglobin 15.6 g/dL (14.0-18.0) Hematocrit 44.9 % (42-52) Mean Corpuscular Volume 86.5 fL (80-100) Mean Corpuscular Hemoglobin 30.1 pg (25-34) Mean Corpuscular Hemoglobin Concent 34.7 g/dl (32-36) Platelet Count 176 K/uL (130-400) Mean Platelet Volume 9.8 fL (7.4-10.4) Neutrophils (%) (Auto) 71.4 % Lymphocytes (%) (Auto) 16.9 % Monocytes (%) (Auto) 9.6 % Eosinophils (%) (Auto) 1.3 % Basophils (%) (Auto) 0.4 % Neutrophils # (Auto) 6.50 K/uL (1.4-6.5) Lymphocytes # (Auto) 1.54 K/uL (1.2-3.4) Monocytes # (Auto) 0.88 K/uL (0.11-0.59) Eosinophils # (Auto) 0.12 K/uL (0-0.5) Basophils # (Auto) 0.04 K/uL (0-0.2) Immature Granulocyte % (Auto) 0.4 % Immature Granulocyte # (Auto) 0.04 K/uL (0.00-0.02) Prothrombin Time 10.7 SECONDS (9.0-12.0) Prothromb Time International Ratio 1.0 (0.9-1.1) Activated Partial Thromboplast Time 27.1 SECONDS (21.0-31.0) Partial Thromboplastin Ratio 1.0 Est Creatinine Clear Calc Drug Dose 35.2 ml/min Magnesium Level 2.3 mg/dl (1.8-2.4) Total Creatine Kinase 65 U/L (39-308) Creatine Kinase MB 1.1 ng/ml (0.5-3.6) Creatine Kinase MB Ratio 1.7 (0-3.0) Troponin I < 0.015 ng/ml (0-0.045) Bedside Glucose 136 mg/dl (70-99) Impression Suspected small left hemispheric stroke resulting in aphasia which has considerably improved this morning. No associated hemiparesis. Etiology not entirely clear although cardioembolism would seem probable in light of this patient's history of atrial fibrillation with rapid ventricular response, in spite of reported compliance with Xarelto. The small intimal flap versus short segment dissection of the proximal right carotid would not likely be clinically significant as aphasia typically localizes to the left cerebral hemisphere. Complex migraine phenomena also possible but probably unlikely. Plan Agree with aspirin 81 milligrams per day. Patient should also continue with Xarelto as well in light of his history of atrial fibrillation. Agree with MRI of the brain. Carotid dissections are typically managed conservatively with either antiplatelet or anticoagulant medication to reduce risk of artery to artery embolism. Additional imaging of the carotids will likely be recommended by vascular surgery as I see that a consultation has been ordered. Gradually reintroducing this patient's antihypertensive regimen would be reasonable. I will review the results of the brain MRI when available and make further recommendations at that time if necessary. This patient will probably need some speech therapy to address his improving aphasia. Please contact me if I may be of further assistance.
[2018-02-28 09:15] LABS: HEMOGLOBIN A1C 7.5 % (4.5-5.6)
[2018-02-28 09:51] LABS: HEMATOCRIT 42.4 % (42-52); HEMOGLOBIN 14.5 g/dL (14.0-18.0); MEAN CORPUSCULAR HEMOGLOBIN 29.4 pg (25-34); MEAN PLATELET VOLUME 9.4 fL (7.4-10.4); PLATELET COUNT 169 K/uL (130-400); RED CELL DISTRIBUTION WIDTH CV 13.7 % (11.5-14.5); RED CELL DISTRIBUTION WIDTH SD 42.7 fL (36.4-46.3); WHITE BLOOD COUNT 9.11 K/uL (4.8-10.8)
[2018-02-28 10:08] LABS: MEAN CORPUSCULAR HGB CONC 34.2 g/dl (32-36)
[2018-02-28 10:24] LABS: CALCIUM 8.3 mg/dl (8.5-10.1); CREATININE 1.41 mg/dl (0.60-1.40); POTASSIUM 3.8 mmol/L (3.5-5.1)
--- NOTE | 2018-02-28 11:34 | Progress Note ---
Progress Note Date of Service Feb 28, 2018. Progress Note Patient admitted after midnight, seen and examined by me this morning. Patient reports feeling improved. He is still having some trouble with his speech and word finding, but feels this is much improved from admission. He states that at the onset of his aphasia, he had bilateral tingling in his hands , but this is now resolved today. He does have some intermittent shortness of breath but denies chest pain. The patient denies fevers, chills, sweats, chest pain, palpitations, claudication, cough, wheezing, nausea, vomiting, abdominal pain, dysuria, hematuria, urinary retention, paralysis, weakness, numbness and tingling. Heart rhythm is irregularly irregular but rate controlled. Patient has colostomy in [facility], currently no output. Abdomen very mildly tender around his ostomy. Patient still with mild aphasia but there is no facial droop or slurred speech. Patient has 5/5 motor strength in all extremities and no sensation deficits. No dysmetria, no pronator drift. Pt is alert and oriented. Physical exam otherwise unremarkable. A/P: Aphasia, likely due to CVA -MRI brain pending -Head CT negative -Head CTA negative -Neck CTA with possible intimal flap/short segment dissection of right internal carotid artery -Consult vascular surgery, appreciate recs -Neurology consulted, appreciate recs: Would recommend resuming Xarelto as carotid dissections usually treated conservatively and with antiplatelet or anticoagulation to prevent emboli. Can gradually reintroduce antihypertensive regimen. Further recommendations following MRI results. -Resume Xarelto -Lipid panel WNL -HgbA1c 7.5 on 02/27 -PT/OT, speech therapy -Diet ordered
--- NOTE | 2018-02-28 11:36 | ECHOCARDIOGRAM REPORT ---
*NOTICE TO RECEIVING LIBERTARIAN AGENCY This information is strictly Confidential and protected under [place] law. [place] law prohibits you from making any further disclosure of this information unless further disclosure is expressly permitted by the written consent of the person to whom it pertains or is authorized by law. A general authorization for the release of medical or other information is not sufficient for this purpose. Hospital accepts no responsibility if the information is made available to any other person, INCLUDING THE PATIENT. DATE: 02/28/2017 Interpretation Summary * Conclusions -- * Left ventricular systolic function is normal. * Regional wall motion abnormalities cannot be excluded due to limited visualization. * The right ventricle is mildly dilated. * The left atrium is severely dilated. * The right atrium is moderate to severely dilated. * There is mild to moderate mitral regurgitation. * There is mild to moderate tricuspid regurgitation. * Right ventricular systolic pressure is normal. * Compared to a study from 2017, there is minimal change Procedure Details * A complete two-dimensional transthoracic echocardiogram was performed (2D, M-mode, Doppler and color flow Doppler). * A saline contrast injection was performed to assess for cardiac shunting. * The injection was performed through an intravenous line in the left arm. * The attending nurse who injected the saline contrast was Walter Huerta RN. * A total of 20 cc of agitated saline was given. Left Ventricle * The left ventricle is normal in size. * There is normal left ventricular wall thickness. * Ejection Fraction = 55-60%. * Left ventricular systolic function is normal. * Regional wall motion abnormalities cannot be excluded due to limited visualization. * Mild hypokinesis of the apical anterolateral segement Right Ventricle * The right ventricle is mildly dilated. * The right ventricular systolic function is normal. * The right ventricular systolic function is normal as assessed by tricuspid annular plane systolic excursion (TAPSE) (normal >1.5 cm). Atria * The left atrium is severely dilated. * The right atrium is moderate to severely dilated. Mitral Valve * The mitral valve is grossly normal. * There is mild to moderate mitral regurgitation. Tricuspid Valve * The tricuspid valve is not well visualized, but is grossly normal. * There is mild to moderate tricuspid regurgitation. * Right ventricular systolic pressure is normal. Aortic Valve * The aortic valve is normal in structure and function. * The aortic valve is trileaflet. * No hemodynamically significant valvular aortic stenosis. * There is no significant aortic regurgitation. Pulmonic Valve * The pulmonic valve is not well seen, but is grossly normal. * Trace pulmonic valvular regurgitation. Great Vessels * The aortic root is normal size. Pericardium/Pleural * There is no pericardial effusion. MMode 2D Measurements and Calculations IVSd 1.0 cm IVSs 1.3 cm LVIDd 3.5 cm LVIDs 2.2 cm LVPWd 1.1 cm LVPWs 1.3 cm IVS/LVPW 0.90 FS 36.3 % EDV(Teich) 50.7 ml ESV(Teich) 16.7 ml EF(Teich) 67.1 % EDV(cubed) 42.7 ml ESV(cubed) 11.0 ml EF(cubed) 74.2 % % IVS thick 25.3 % % LVPW thick 16.8 % LV mass(C)d 114.4 grams LV mass(C)dI 56.6 grams/m\S\2 LV mass(C)s 84.5 grams LV mass(C)sI 41.8 grams/m\S\2 SV(Teich) 34.0 ml SI(Teich) 16.9 ml/m\S\2 SV(cubed) 31.7 ml SI(cubed) 15.7 ml/m\S\2 Ao root diam 3.6 cm Ao root area 10.1 cm\S\2 ACS 1.8 cm LA dimension 4.3 cm asc Aorta Diam 3.3 cm LA/Ao 1.2 EDV(MOD-sp4) 81.0 ml ESV(MOD-sp4) 35.0 ml EF(MOD-sp4) 56.8 % EDV(MOD-sp2) 85.0 ml ESV(MOD-sp2) 38.0 ml EF(MOD-sp2) 55.3 % SV(MOD-sp4) 46.0 ml SI(MOD-sp4) 22.8 ml/m\S\2 SV(MOD-sp2) 47.0 ml SI(MOD-sp2) 23.3 ml/m\S\2 Doppler Measurements and Calculations MV E max kailee 92.1 cm/sec MV A max kailee 33.6 cm/sec MV E/A 2.7 MV P1/2t max kailee 114.5 cm/sec MV P1/2t 57.8 msec MVA(P1/2t) 3.8 cm\S\2 MV dec slope 580.6 cm/sec\S\2 MV dec time 0.21 sec Ao V2 max 102.1 cm/sec Ao max PG 4.2 mmHg Ao max PG (full) 2.2 mmHg LV V1 max PG 2.0 mmHg LV V1 max 70.0 cm/sec PA V2 max 65.9 cm/sec PA max PG 1.8 mmHg PI max kailee 175.4 cm/sec PI max PG 12.3 mmHg PI dec slope 86.1 cm/sec\S\2 PI P1/2t 596.7 msec TR max kailee 231.6 cm/sec
--- NOTE | 2018-02-28 11:41 | Surgery Consultation ---
Consultation Date of Service Feb 28, 2018. Chief Complaint possible carotid dissection R History of Present Illness The patient is a 82 year old male with hx of a fib on xarelto, GERD, DMII, admitted with TIA/CVA, seen in consultation today for possible R carotid dissection noted on CTA. Pt states aphasia and R hand and foot numbness began last evening around 1800, and has resolved presently. States mild problem with word finding remains(not noticable on exam). Admits associated WHITFIELD, but is improved. Did have some R eye blurry vision as well, but states this was similar to migraines he used to experience in past. Denies vision changes now, fever, chills, recent illness, cough, chest pain, SOB, abd pain, N/V, rest pain , claudication, other complaints. Of note, pt did take last dose of xarelto on Wednesday in preparation for a colonoscopy that was scheduled today. CTA neck demonstrates possible R internal artery short segment dissection vs artifact vs tortuous vessel vs plaque. L ICA widely patent. Vitals Vital Signs Past 12 Hours Date Time Temp Pulse Resp B/P (MAP) Pulse Ox O2 Delivery O2 Flow Rate FiO2 02/28/18 11:00 36.5 79 16 146/95 (112) 96 Room Air 02/28/18 08:00 Room Air 02/28/18 07:30 37.0 81 16 130/88 (102) 97 Room Air 02/28/18 03:32 37.2 85 18 159/99 (119) 96 Room Air 02/28/18 03:10 37.2 85 18 159/99 Room Air 02/28/18 02:59 77 20 145/90 98 Room Air 02/28/18 02:07 80 02/28/18 01:17 94 20 144/95 98 Room Air 02/27/18 23:40 94 20 172/105 98 Room Air Allergies Coded Allergies: Hydromorphone (Verified Allergy, Unknown, HALLUCINATIONS, 12/22/17) Lorazepam (Verified Allergy, Unknown, HALLUCINATIONS, 12/22/17) Tetanus Toxoid (Verified Allergy, Unknown, BLISTERS AND EYES SWELLING, 12/22) WAS GIVEN HORSE-SERUM TYPE TETANUS Home Medications Scheduled Diltiazem Hcl Ext Rel (Tiazac), 120 MG PO DAILY Glipizide (Glipizide Er), 5 MG PO QAM Metoprolol Succ (Toprol Xl) (Toprol-Xl ), 100 MG PO QAM Pantoprazole (Protonix), 40 MG PO QAM Ranitidine Hcl (Zantac), 150 MG PO HS Rivaroxaban (Xarelto), 20 MG PO QAM Simvastatin (Zocor), 40 MG PO QPM Scheduled PRN Acetamin/Butalbital/Caffeine (Fioricet), 1 TAB PO UD PRN for Migraine Problem List Medical Problems: (1) Atrial fibrillation (2) Atrial fibrillation with RVR (3) Bowel obstruction (4) Colon cancer Surgical Problems: (1) S/P appendectomy Surgical / Medical History Hx Cardiac Surgery: Yes (CARDIOVERSION X2) Hx Abdominal Surgery: Yes (BOWEL BLOCKAGE REPAIR, HERNIA REPAIR) Hx Cancer Surgery: Yes (COLON RESECTION WITH COLOSTOMY, MOHS FOR BCC) Hx Thoracic Surgery: No Hx Orthopedic: Yes (RT YAZ) Hx Urinary Tract Surgery: Yes (VASECTOMY) Past Medical/Surgical History: Diabetes, Other (a fib) Family History Cancer Hypertension Social History Smoking Status: Former Smoker Hx Tobacco Use In Past Year?: No (quit 20 years ago ) Hx Alcohol Use - Type & Amnt: Yes (2 GLASSES RED WINE DAILY) Hx Substance Use -Type & Amnt: No Review of Systems Constitutional: No chills, No fever Skin: No change in color Eyes: + visual changes (resolved) ENMT: No sore throat Respiratory: No cough, No JIMENEZ, No hemoptysis Cardiovascular: No chest pain, No palpitations, No syncope, No edema, No intermittent claudication Gastrointestinal: No abdominal pain, No nausea, No vomiting Neurologic: + numbness, + tingling, No dizziness, No weakness, No headache Physical Exam Constitutional: General Apperance: heathly-appearing, well-nourished, well-developed Level of Distress: NAD Psychiatric: Mental Status: active & alert, normal mood, normal affect Orientation: oriented except where noted, to time, to place, to person Memory: recent memory normal, remote memory normal Head: normocephalic, atraumatic Eyes: EOM: EOMI ENMT: normal ENT inspection, hearing grossly normal Neck: supple, trachea midline Lungs: Respiratory effort: no dyspnea Auscultation: breath sounds normal, no rales/crackles, no rhonchi Cardiovascular: Apical Impulse: not displaced Heart Auscultation: no rubs, no gallops, pertinent finding (irregular) Peripheral Pulses: Pulses: full and equal, in all extremities except if noted Bruits: none appreciated Carotid Pulse: normal on the left, normal on the right Brachial Pulses: normal on the left, normal on the right Radial Pulse: normal on the left, normal on the right Femoral Pulse: normal on the left, normal on the right Posterior Tibialis Pulse: decreased on the left, decreased on the right Dorsalis Pedis Pulse: decreased on the left, decreased on the right Abdomen: Bowel Sounds: normal Inspection & Palpation: soft, non-distended, no tenderness, guarding & rebound Musculoskeletal: normal strength (5/5 throughout), normal tone Extremities: Upper Right: no cyanosis, no edema, no varicosities Upper Left: no cyanosis, no edema, no varicosities Lower Right: no cyanosis, no edema, no varicosities Lower Left: no cyanosis, no edema, no varicosities Neurologic: Cranial Nerves: grossly intact Sensation: grossly intact Assessment and Plan ASSESSMENT and PLAN: Possible R ICA dissection L hemispheric TIA Pt discussed with Dr Jones, recommends MRA neck to better eval R ICA. Discussed with pt and family, they are agreeable. Reassured pt that his sx would be associated with a L hemispheric event and not likely associated with any R ICA abnormality.
[2018-02-28] MEDS: INSULIN ASPART 100 UNITS/ML 3 ML PEN SC SCH ×3 (11:44→21:07)
[2018-02-28] MEDS ORDERED: GADAVIST IV PRN (20:45)
[2018-02-28] MEDS ORDERED: RANITIDINE HCL 150 MG TAB PO SCH (21:00)
[2018-02-28] MEDS ORDERED: SIMVASTATIN 40 MG TAB PO SCH (21:00)
--- NOTE | 2018-02-28 21:10 | DIAGNOSTIC IMAGING REPORT ---
BRAIN COMBO CLINICAL HISTORY: 82 years-old Male presenting with Stroke, episode of confusion yesterday, overnight right arm numbness radiating into the hand, history of migraine, symptoms now resolved. TECHNIQUE: Multisequence, multiplanar MR imaging of the brain was performed before and after the administration of intravenous contrast. IV contrast: 8 mL of Gadavist. COMPARISON: Noncontrast CT head from 02/27/2018. FINDINGS: Localizer images: Unremarkable. Proportional ventricular and sulcal prominence, likely age-related parenchymal volume loss. Minimal periventricular and subcortical white matter T2/FLAIR hyperintensity, nonspecific but likely indicative of chronic small vessel ischemic change. No mass effect or midline shift. No restricted diffusion to suggest acute ischemia. No hemorrhage. No extra-axial fluid collection. T2 skull base flow voids preserved. Tortuosity of the cavernous segments of the internal carotid arteries noted bilaterally. No abnormal parenchymal enhancement. Bone marrow signal intensity within the calvarium within normal limits. 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 Bilateral lytton lenses are absent. IMPRESSION: 1. No acute intracranial pathology. No abnormal enhancement. Electronically signed by: Pollo Ochoa M.D. 02/28/2018 9:08 PM Dictated Date/Time: 02/28/2018 9:04 PM
--- NOTE | 2018-02-28 21:23 | DIAGNOSTIC IMAGING REPORT ---
MRA NECK COMBO CLINICAL HISTORY: 82 years-old Male presenting with history of confusion yesterday, overnight right arm numbness radiating into the hand, history of migraines, symptoms now resolved. TECHNIQUE: MR angiography of the neck was performed before and after the administration of intravenous contrast. 3-D volumetric and/or maximum intensity projection (MIP) images were subsequently reconstructed for review. IV contrast: 8 mL of Gadavist. Stenosis measurements were based on NASCET-like criteria. COMPARISON: CTA neck from 02/27/2018. FINDINGS: Localizer images: Unremarkable. Aortic arch: Atherosclerosis of the three-vessel aortic arch. Innominate artery: Patent. Right common carotid artery: Patent. Right internal and external carotid arteries: Redemonstration of the short segment irregularity of the proximal internal carotid artery. The length of this abnormality measures 5 mm (series 1701 image 28; series 13 image 33). This abnormality is identical to the abnormality seen on yesterday's CTA. The right external carotid artery is patent. Left common carotid artery: Patent. Left internal and external carotid arteries: Left carotid bifurcation patent. Left internal and external carotid arteries widely patent. Left subclavian artery: Patent. Vertebral arteries: Left dominant vertebral artery. Origins and courses of the bilateral vertebral arteries patent. Other: Limited intracranial evaluation within normal limits. Soft tissues of the neck normal allowing for the phase of contrast. IMPRESSION: 1. 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 No change since yesterday's CTA. Electronically signed by: Pollo Ochoa M.D. 02/28/2018 9:22 PM Dictated Date/Time: 02/28/2018 9:12 PM
[2018-03-01 03:45] VITALS: BP 137/67; PULSE 81; TEMP 36.6; O2SAT 97
[2018-03-01 06:10] VITALS: BP 145/91; PULSE 88; TEMP 36.4; O2SAT 98
[2018-03-01 06:43] LABS: BASO % 0.9 %; BASO ABS # 0.05 K/uL (0-0.2); EOS % 1.8 %; HEMATOCRIT 42.4 % (42-52); HEMOGLOBIN 14.5 g/dL (14.0-18.0); IG# 0.02 K/uL (0.00-0.02); LYMPH % 17.8 %; LYMPH ABS # 0.99 K/uL (1.2-3.4); MEAN CELL VOLUME 86.4 fL (80-100); MEAN CORPUSCULAR HEMOGLOBIN 29.5 pg (25-34); MEAN CORPUSCULAR HGB CONC 34.2 g/dl (32-36); MEAN PLATELET VOLUME 9.2 fL (7.4-10.4); MONO % 12.6 %; NEUT % 66.5 %; NEUT ABS # 3.69 K/uL (1.4-6.5); PLATELET COUNT 137 K/uL (130-400); RED CELL DISTRIBUTION WIDTH CV 13.7 % (11.5-14.5); RED CELL DISTRIBUTION WIDTH SD 42.6 fL (36.4-46.3); WHITE BLOOD COUNT 5.55 K/uL (4.8-10.8)
[2018-03-01 07:18] LABS: CALCIUM 8.4 mg/dl (8.5-10.1); CREATININE 1.32 mg/dl (0.60-1.40); POTASSIUM 4.3 mmol/L (3.5-5.1)
--- NOTE | 2018-03-01 07:31 | Clinical Documentation Query ---
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 Admission BUN and creatinine were 16 mg/dl and 1.73 mg/dl with improvement to 13 mg/dl and 1.41 mg/dl with IVF. No documentation regarding these abnormalities. Creatinine of 1.73 mg/dl the highest in our historical EMR. As appropriate, consider documentation as suggested below. Thank you. In your clinical opinion is this patient being managed for: ( x) NICOLLE on CKD stage 3 ( ) Not Agree ( ) Other explanation of clinical findings (No explanation is considered a No Response) ( ) Unable to determine ( ) Need to Discuss (Phone CDS or qliq) (No discussion is considered a No Response) The medical record reflects the following clinical findings, treatment, and risk factors. Clinical Indicators: As above Treatment: IVF, serial chemistries Risk Factors: Age, poor intake Please clarify and document your clinical opinion in the progress notes and discharge summary. Terms such as "probable", "suspected", "likely", "questionable", "possible", or "still to be ruled out" are acceptable. IF IN AGREEMENT, YOU MUST DOCUMENT ABOVE DIAGNOSTIC STATEMENT IN DAILY PROGRESS NOTES AND DISCHARGE SUMMARY. This document is not part of the patient's record. Thank You, Romulo Isaac RN [phone]
--- NOTE | 2018-03-01 07:32 | Clinical Documentation Query ---
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 Admission BUN and creatinine were 16 mg/dl and 1.73 mg/dl with improvement to 13 mg/dl and 1.41 mg/dl with IVF. No documentation regarding these abnormalities. Creatinine of 1.73 mg/dl the highest in our historical EMR. As appropriate, consider documentation as suggested below. Thank you. In your clinical opinion is this patient being managed for: ( x ) NICOLLE on CKD stage 3 ( ) Not Agree ( ) Other explanation of clinical findings (No explanation is considered a No Response) ( ) Unable to determine ( ) Need to Discuss (Phone CDS or qliq) (No discussion is considered a No Response) The medical record reflects the following clinical findings, treatment, and risk factors. Clinical Indicators: As above Treatment: IVF, serial chemistries Risk Factors: Age, poor intake Please clarify and document your clinical opinion in the progress notes and discharge summary. Terms such as "probable", "suspected", "likely", "questionable", "possible", or "still to be ruled out" are acceptable. IF IN AGREEMENT, YOU MUST DOCUMENT ABOVE DIAGNOSTIC STATEMENT IN DAILY PROGRESS NOTES AND DISCHARGE SUMMARY. This document is not part of the patient's record. Thank You, Romulo Isaac RN [phone]
--- NOTE | 2018-03-01 08:24 | Neurology Progress Notes ---
Neurology Progress Note Date of Service Mar 01, 2018. Subjective Follow-up for stroke-like episode/TIA The patient is an 82-year-old male who presented with an episode of aphasia. He has a history of atrial fibrillation and had been taking Xarelto although reportedly held this medication for 1 day in anticipation of a colonoscopy. He did have some mild residual aphasia yesterday morning although indicates that his speech continues to improve. No associated weakness or sensory loss. Of note, this patient has a past medical history of infrequent complex migraine. He does recall having a similar presentation in the past. Initial evaluation including CT angiography of the head and neck revealed a very small dissection of the proximal right internal carotid artery. This finding was confirmed on a follow-up MRA of the neck completed yesterday. An MRI of the brain was also performed. This study was negative for acute or subacute stroke. I reviewed the images as well as the radiologist's interpretation of both of these tests. The patient currently denies headache, vision loss, weakness, or problems with balance or walking. Objective Date Time Temp Pulse Resp B/P (MAP) Pulse Ox O2 Delivery O2 Flow Rate FiO2 03/01/18 06:10 36.4 88 24 145/91 (109) 98 Room Air 03/01/18 03:45 36.6 81 18 137/67 (90) 97 Room Air 02/28/18 23:51 36.4 97 22 150/80 (103) 95 Room Air 02/28/18 20:55 36.5 97 18 145/92 (109) 100 Room Air 02/28/18 20:00 Room Air 02/28/18 15:42 36.9 89 18 132/86 (101) 96 Room Air 02/28/18 11:00 36.5 79 16 146/95 (112) 96 Room Air Last 24 Hours Test 02/28/18 09:39 02/28/18 11:11 02/28/18 16:19 02/28/18 21:04 White Blood Count 9.11 K/uL Red Blood Count 4.93 M/uL Hemoglobin 14.5 g/dL Hematocrit 42.4 % Mean Corpuscular Volume 86.0 fL Mean Corpuscular Hemoglobin 29.4 pg Mean Corpuscular Hemoglobin Concent 34.2 g/dl RDW Standard Deviation 42.7 fL RDW Coefficient of Variation 13.7 % Platelet Count 169 K/uL Mean Platelet Volume 9.4 fL Sodium Level 138 mmol/L Potassium Level 3.8 mmol/L Chloride Level 106 mmol/L Carbon Dioxide Level 24 mmol/L Anion Gap 8.0 mmol/L Blood Urea Nitrogen 13 mg/dl Creatinine 1.41 mg/dl Est Creatinine Clear Calc Drug Dose 43.1 ml/min Estimated GFR () 54.1 Estimated GFR (Non- 46.7 BUN/Creatinine Ratio 8.9 Random Glucose 136 mg/dl Calcium Level 8.3 mg/dl Triglycerides Level 144 mg/dl Cholesterol Level 96 mg/dl HDL Cholesterol 44 mg/dl LDL Cholesterol, Calculated 23 mg/dl VLDL Cholesterol, Calculated 29 mg/dl Cholesterol/HDL Ratio 2.2 Bedside Glucose 136 mg/dl 110 mg/dl 188 mg/dl Test 03/01/18 06:34 White Blood Count 5.55 K/uL Red Blood Count 4.91 M/uL Hemoglobin 14.5 g/dL Hematocrit 42.4 % Mean Corpuscular Volume 86.4 fL Mean Corpuscular Hemoglobin 29.5 pg Mean Corpuscular Hemoglobin Concent 34.2 g/dl Platelet Count 137 K/uL Mean Platelet Volume 9.2 fL Neutrophils (%) (Auto) 66.5 % Lymphocytes (%) (Auto) 17.8 % Monocytes (%) (Auto) 12.6 % Eosinophils (%) (Auto) 1.8 % Basophils (%) (Auto) 0.9 % Neutrophils # (Auto) 3.69 K/uL Lymphocytes # (Auto) 0.99 K/uL Monocytes # (Auto) 0.70 K/uL Eosinophils # (Auto) 0.10 K/uL Basophils # (Auto) 0.05 K/uL RDW Standard Deviation 42.6 fL RDW Coefficient of Variation 13.7 % Immature Granulocyte % (Auto) 0.4 % Immature Granulocyte # (Auto) 0.02 K/uL Sodium Level 138 mmol/L Potassium Level 4.3 mmol/L Chloride Level 106 mmol/L Carbon Dioxide Level 25 mmol/L Anion Gap 7.0 mmol/L Blood Urea Nitrogen 14 mg/dl Creatinine 1.32 mg/dl Est Creatinine Clear Calc Drug Dose 46.1 ml/min Estimated GFR () 58.6 Estimated GFR (Non- 50.6 BUN/Creatinine Ratio 10.6 Random Glucose 154 mg/dl Calcium Level 8.4 mg/dl Exam: The patient is alert and fully oriented. He is pleasant and cooperative. Attention and concentration are normal. He is able to name objects and repeat phrases without difficulty. No problems with finger naming, discriminating left from right, and following commands. No problems with simple calculations. Visual ness full to confrontation. Pupils equal round reactive to light and accommodation. Eye movements normal. There is normal facial symmetry and strength. Tongue and palate move well and are midline. There is no pronator drift. There is no ataxia with [id number] or heel to patino. Strength full in all 4 limbs. Current Inpatient Medications Medications (Trade) Dose Ordered Sig/Oscar Route Start Time Stop Time Status Last Admin Dose Admin Ioversol (Optiray 320) 100 ml UD PRN IV 02/27/18 22:30 03/03/18 22:29 Acetaminophen (Tylenol Tab) 650 mg Q4H PRN PO 02/28/18 02:30 03/30/18 02:29 Al Hydrox/Mg Hydrox/Simethicone (Maalox Max Susp) 15 ml Q4H PRN PO 02/28/18 02:30 03/30/18 02:29 Magnesium Hydroxide (Milk Of Magnesia Susp) 30 ml Q12H PRN PO 02/28/18 02:30 03/30/18 02:29 Ondansetron HCl (Zofran Inj) 4 mg Q6H PRN IV 02/28/18 02:30 03/30/18 02:29 Nitroglycerin (Nitrostat Tab) 0.4 mg UD PRN SL 02/28/18 02:30 03/30/18 02:29 Aspirin (Ecotrin Tab) 81 mg QAM PO 02/28/18 09:00 03/30/18 08:59 02/28/18 08:16 81 MG Polyethylene (Miralax Powder Packet) 17 gm DAILY PRN PO 02/28/18 02:30 03/30/18 02:29 Miscellaneous Information (Pharmacist Discharge Med Rec Consult) 1 ea UD PRN N/A 02/28/18 02:30 03/30/18 02:29 Pantoprazole Sodium (Protonix Tab) 40 mg QAM PO 02/28/18 09:00 03/30/18 08:59 02/28/18 08:16 40 MG Ranitidine HCl (zANTac TAB) 150 mg HS PO 02/28/18 21:00 03/30/18 20:59 02/28/18 20:58 150 MG Simvastatin (Zocor Tab) 40 mg QPM PO 02/28/18 21:00 03/30/18 20:59 02/28/18 20:58 40 MG Glucose (Glucose 40% Gel) 15-30 GRAMS 15 GRAMS... UD PRN PO 02/28/18 03:45 03/30/18 03:44 Glucose (Glucose Chew Tab) 4-8 Tablets 4 Tabl... UD PRN PO 02/28/18 03:45 03/30/18 03:44 Dextrose (Dextrose 50% 50ML Syringe) 25-50ML 25ML FOR ... UD PRN IV 02/28/18 03:45 03/30/18 03:44 Glucagon (Glucagon Inj) 1 mg UD PRN IM 02/28/18 03:45 03/30/18 03:44 Carbohydrates (Carbohydrates For Hypoglycemia) 15-30 GRAMS 15 grams if BSG 54-69... UD PRN PO 02/28/18 03:45 03/30/18 03:44 Insulin Aspart (novoLOG ASPART) SLIDING SCALE G... ACHS SC 02/28/18 11:00 03/30/18 10:59 02/28/18 21:07 1 UNITS Rivaroxaban (Xarelto Tab) 20 mg DAILY PO 03/01/18 09:00 03/31/18 08:59 Gadobutrol (Gadavist) 8 mmol UD PRN IV 02/28/18 20:45 03/04/18 20:44 Impression Probable TIA localizing to the left cerebral hemisphere and presenting with transient aphasia, currently resolved. No associated weakness. Differential diagnosis would also include complex migraine in this patient. Incidental, short segment, proximal right internal carotid artery dissection. Plan Continue Xarelto and aspirin 81 milligrams per day. This patient does not appear to have any specific rehabilitation needs at this time. Continue medical management of hypertension and diabetes mellitus. Patient will need to delay his colonoscopy given the recent neurologic event. Outpatient follow-up with gastroenterology. No further immediate neurological recommendations.
[2018-03-01] MEDS ORDERED: RIVAROXABAN 20 MG TAB PO SCH (09:00)
[2018-03-01] MEDS: ASPIRIN 81 MG ECTAB PO SCH (09:22)
[2018-03-01] MEDS: PANTOprazole SOD 40 MG TAB PO SCH (09:22)
[2018-03-01] MEDS: INSULIN ASPART 100 UNITS/ML 3 ML PEN SC SCH ×2 (09:24→11:57)
--- NOTE | 2018-03-01 12:21 | Progress Note ---
Progress Note Date of Service Mar 01, 2018. Progress Note Pt's MRA reviewed by Dr Jones, does see a small, focal dissection of R ICA, has not worsened. No indications for vascular intervention at this time. Per pt , his sx are resolved. Pt reassured that his L hemispheric sx are unrelated. Advised pt that Dr Jones recommends pt have a f/u in office with a carotid US in 6 months for monitoring. Pt expresses understanding. Please call if needed.
[2018-03-01] MEDS ORDERED: ASPI-461 PO (12:46)
--- NOTE | 2018-03-01 12:56 | Discharge Instructions ---
Discharge Instructions Date of Service Mar 01, 2018. Admission Reason for Admission: Stroke Discharge Discharge Diagnosis / Problem: Transient ischemic attack vs complex migraine Discharge Goals Goal(s): Decrease discomfort, Improve function, Diagnostic testing, Therapeutic intervention Activity Recommendations Activity Limitations: resume your previous activity (as tolerated) . Instructions / Follow-Up Instructions / Follow-Up You were admitted to the hospital with difficulty speaking and word finding, as well as tingling in your hands that was concerning for a possible stroke, especially given that you were off your Xarelto for a few days in preparation for a colonoscopy. Your work up included imaging of the head, neck and brain as well as an ultrasound of your heart and evaluation by neurology. The MRI of your brain was negative for a stroke. As your symptoms have already resolved, this may represent either a transient ischemic attack (TIA) or "mini stroke", or could be a complex migraine. Imaging of your neck was concerning for a small tear in your right internal carotid artery. You were evaluated by vascular surgery who did not recommend any intervention at this time, but they did recommend a follow up ultrasound in 6 months. As your neurological symptoms are resolved and you are not showing any deficits, you are now medically stable for discharge. Medications: *Please take aspirin 81 mg daily as recommended by neurology. This has been sent electronically to your pharmacy. Take this in addition to your Xarelto. *Continue your home medications as prescribed. Follow up: *You will be scheduled to follow up with your primary care provider. *Dr. Jones's office (vascular surgery) will be in contact with you to schedule a follow up outpatient visit, as well as to schedule your follow up neck ultrasound in 6 months. Please seek medical attention if you experience fevers, chills, sweats, dizziness/lightheadedness, loss of consciousness, vision changes, difficulty speaking, confusion, sudden/severe neck pain or neck trauma, chest pain, shortness of breath, nausea, vomiting, motor weakness, numbness or tingling. Activation of Emergency Medical System: Call 911, immediately, if you experience any of the following: Warning Signs and Symptoms of Stroke: * Sudden numbness or weakness of the face, arm or leg, especially on one side of the body * Sudden confusion, trouble speaking or understanding * Sudden trouble seeing in one or both eyes * Sudden trouble walking, dizziness, loss of balance or coordination * Sudden severe headache with no cause Do not delay calling 911 if you experience any warning signs or symptoms of a stroke. Delay in seeking medical attention may affect what treatments can be given to you. Risk Factors for Stroke: You can reduce your chances of stroke by working with your medical provider to adopt a healthy lifestyle. Some specific ways to lower your chance of stroke are: * If you are a smoker, now is the time to stop smoking cigarettes * If you are diabetic, improve the control of your blood sugars * Avoid excessive amounts of alcohol * Control high blood pressure * Lose weight if you are overweight * Be sure to lead an active lifestyle * Eat a healthy diet low in salt, cholesterol and fat You should know about other risk factors for stroke that you are unable to control. These include: * Age 55 years or older * Male gender * Certain racial groups: , or / * Family History of Stroke, Mini stroke or Heart Attack * Sickle Cell Disease Follow Up: It is important for you to keep your follow up appointments with your medical provider. Current Hospital Diet Patient's current hospital diet: AHA Diet (Heart Healthy) Discharge Diet Recommended Diet: AHA Diet (Heart Healthy), Diabetes Type 2 Diet Pending Studies Studies pending at discharge: no Laboratory Results Hemoglobin A1c Test 02/27/18 22:12 Range/Units Estimated Average Glucose 169 mg/dl Hemoglobin A1c 7.5 H 4.5-5.6 % Lipid Panel Test 02/28/18 09:39 Range/Units Triglycerides Level 144 0-150 mg/dl Cholesterol Level 96 0-200 mg/dl HDL Cholesterol 44 mg/dl Cholesterol/HDL Ratio 2.2 LDL Cholesterol, Calculated 23 mg/dl Medical Emergencies . Who to Call and When: Medical Emergencies: If at any time you feel your situation is an emergency, please call 911 immediately. . Non-Emergent Contact Non-Emergency issues call your: Primary Care Provider, Surgeon (vascular surgery) Call Non-Emergent contact if: you have a fever, you have any medication questions . Past History Medical & Surgical History: (1) TIA (transient ischemic attack) . "Provider Documentation" section prepared by Jennifer Oates. .
--- NOTE | 2018-03-01 13:28 | Discharge Summary ---
Discharge Summary Date of Service Mar 01, 2018. Discharge Summary Admission Date: Feb 28, 2018 at 02:44 Discharge Date: Mar 01, 2018 Discharge Disposition: Home Principal Diagnosis: TIA, transient aphasia Problems/Secondary Diagnoses: A-fib, HTN, HLD, DM II, h/o colon cancer s/p resection and colostomy 1979, migraines, gout, neuropathy, GERD Immunizations: Have You Had Influenza Vaccine: Yes Influenza Vaccine Date: Jun 24, 2007 History of Tetanus Vaccine?: No History of Pneumococcal: No History of Hepatitis B Vaccine: No Procedures: BRAIN COMBO IMPRESSION: 1. No acute intracranial pathology. No abnormal enhancement. CT ANGIOGRAPHY OF THE NECK WITH CONTRAST IMPRESSION: 1. Apparent linear filling defect within the proximal right internal carotid artery. Although this could be artifactual, an intimal flap/short segment dissection is favored. 2. No stenosis within the major vessels of the neck. No significant atherosclerotic plaque. MRA NECK COMBO IMPRESSION: 1. 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 No change since yesterday's CTA. Echocardiogram: Interpretation Summary * Conclusions -- * Left ventricular systolic function is normal. * Regional wall motion abnormalities cannot be excluded due to limited visualization. * The right ventricle is mildly dilated. * The left atrium is severely dilated. * The right atrium is moderate to severely dilated. * There is mild to moderate mitral regurgitation. * There is mild to moderate tricuspid regurgitation. * Right ventricular systolic pressure is normal. * Compared to a study from 2017, there is minimal change Procedure Details * A complete two-dimensional transthoracic echocardiogram was performed ( 2D, M-mode, Doppler and color flow Doppler). * A saline contrast injection was performed to assess for cardiac shunting. * The injection was performed through an intravenous line in the left arm. * The attending nurse who injected the saline contrast was Walter Huerta RN. * A total of 20 cc of agitated saline was given. Left Ventricle * The left ventricle is normal in size. * There is normal left ventricular wall thickness. * Ejection Fraction = 55-60%. * Left ventricular systolic function is normal. * Regional wall motion abnormalities cannot be excluded due to limited visualization. * Mild hypokinesis of the apical anterolateral segement Right Ventricle * The right ventricle is mildly dilated. * The right ventricular systolic function is normal. * The right ventricular systolic function is normal as assessed by tricuspid annular plane systolic excursion (TAPSE) (normal >1.5 cm). Atria * The left atrium is severely dilated. * The right atrium is moderate to severely dilated. Mitral Valve * The mitral valve is grossly normal. * There is mild to moderate mitral regurgitation. Tricuspid Valve * The tricuspid valve is not well visualized, but is grossly normal. * There is mild to moderate tricuspid regurgitation. * Right ventricular systolic pressure is normal. Aortic Valve * The aortic valve is normal in structure and function. * The aortic valve is trileaflet. * No hemodynamically significant valvular aortic stenosis. * There is no significant aortic regurgitation. Pulmonic Valve * The pulmonic valve is not well seen, but is grossly normal. * Trace pulmonic valvular regurgitation. Great Vessels * The aortic root is normal size. Pericardium/Pleural * There is no pericardial effusion. Consultations: Neurology Vascular surgery Medication Reconciliation New Medications: Aspirin (Aspirin) 81 Mg Tab 81 MG PO QAM for 30 Days, #30 TAB Continued Medications: Acetamin/Butalbital/Caffeine (Fioricet) 1 Ea Tab 1 TAB PO UD PRN for Migraine, TAB Diltiazem Hcl Ext Rel (Tiazac) 120 Mg Capcr 120 MG PO DAILY, CAP Glipizide (Glipizide Er) 5 Mg Tab 5 MG PO QAM Metoprolol Succ (Toprol Xl) (Toprol-Xl ) 100 Mg Tabcr 100 MG PO QAM Pantoprazole (Protonix) 40 Mg Tab 40 MG PO QAM Ranitidine Hcl (Zantac) 150 Mg Tab 150 MG PO HS Rivaroxaban (Xarelto) 20 Mg Tab 20 MG PO QAM Simvastatin (Zocor) 40 Mg Tab 40 MG PO QPM Discharge Exam The patient reports feeling much better. His aphasia has resolved and he has had no further recurrence of numbness or tingling. The patient does note that about 30 years ago he had neurological symptoms that had been initially concerning for a stroke had then resolved, and this was contributed to a complex migraine. He states he has had a mild 2/10 headache for the last 2 days , but denies anything that feels like his usual migraines. The patient denies fevers, chills, sweats, chest pain, palpitations, claudication, cough, wheezing , shortness of breath, nausea, vomiting, abdominal pain, dysuria, hematuria, urinary retention, paralysis, weakness, numbness and tingling. Constitutional: No fever, No chills, No sweats Eyes: No worsening of vision, No eye pain, No diplopia ENT: No hearing loss, No nasal symptoms, No trouble swallowing Respiratory: No cough, No wheezing, No shortness of breath Cardiovascular: No chest pain, No claudication, No palpitations Abdomen: No pain, No nausea, No vomiting Musculoskeletal: No joint pain, No muscle pain, No swelling Genitourinary - Male: No dysuria, No urinary retention, No hematuria Neurologic: No paralysis, No weakness, No numbness/tingling Integumentary: No rash, No itch, No color change General appearance: Well-developed, well-nourished, no apparent distress Head: Normocephalic, atraumatic Eyes: Normal inspection, PERRL, EOMI ENT: Normal ENT inspection, hearing grossly normal, pharynx normal Neck: Supple, no JVD, trachea midline Respiratory/Chest: Lungs clear to auscultation, normal breath sounds, no respiratory distress Cardiovascular: +Irregularly irregular, rate controlled. No gallop, no murmur Abdomen/GI: +Colostomy LLQ. Normal bowel sounds, non-tender, soft Extremities/Musculoskeletal: Normal inspection, no calf tenderness, no pedal edema Neurological/Psych: +Aphasia resolved. Alert, normal mood/affect, oriented x 3 Skin: Normal color, warm/dry, no rash Hospital Course 82 y/o male with a history of a-fib on Xarelto, HTN, HLD, DM II, h/o colon cancer s/p resection and colostomy (1978), migraines, gout, neuropathy, and GERD who presents to the ED with aphasia and hand tingling. Transient aphasia--resolved. Due to TIA vs complex migraine -Admitted to telemetry. No acute events overnight. Pt in rate controlled a- fib with HR 80s to low 100s. -Head CT negative -Head CTA negative -Neck CTA with possible intimal flap/short segment dissection of right internal carotid artery -Brain MRI negative for stroke -Echo shows EF 55-60%. Hypokinesis of apical anterolateral segment. Cannot exclude further WMA due to limited visualization. Left atrium severely dilated. Mild to moderate mitral regurgitation. -Neurology consulted, appreciate recs: Probable TIA but differential diagnosis also includes complex migraine. Continue Xarelto and ASA 81 mg. Continue medical management of hypertension and diabetes mellitus. Patient will need to delay his colonoscopy given the recent neurologic event. Outpatient follow-up with gastroenterology. -Pt has remote history of previous complex migraine vs possible TIA -Pt had also stopped Xarelto on 02/26 due to colonoscopy that had been scheduled for this week (canceled) -Pt started on ASA 81 mg PO qd due to concern for CVA, will continue at discharge -Continue Xarelto, statin -Lipid panel WNL -HgbA1c 7.5 on 02/27 -PT/OT, speech therapy--no needs identified, ok to return to home as pt is at baseline functioning ?Right internal carotid artery dissection -MRA neck shows unchanged short segment suspected dissection in the proximal right internal carotid artery, unchanged from previous CTA. This may be chronic. -Vascular surgery consulted, appreciate recs: Spoke to Susan Dominique. No intervention necessary at this time, but will follow up as outpatient and recommend f/u ultrasound in 6 months -Dr. Jones's office will contact pt regarding follow up appt/ultrasound NICOLLE on CKD stage III--resolved -Creatinine back to baseline A-fib, HTN--stable, a-fib rate controlled -Continue diltiazem 120 mg PO qd, Toprol XL 100 mg PO qd, Xarelto 20 mg PO qd HLD--stable, well controlled -Continue Zocor 40 mg PO qd DM II--HgbA1c 7.5 here -Glipizide held while inpt, can resume at discharge -Insulin sliding scale -Check BSGs q ac and qhs H/o colon cancer s/p resection and colostomy--noted -Pt will need to f/u with GI regarding rescheduling colonoscopy Migraines--pt states only mild 2/10 headache starting 2 days ago. States only gets about 1 migraine/year now -Continue Fioricet prn -Possible previous complex migraine about 30 years ago GERD -Continue Protonix 40 mg PO qam and Zantac 150 mg PO hs DVT prophylaxis -Xarelto Code Status -Level I, FULL RESUSCITATION STATUS Total Time Spent: Greater than 30 minutes This includes examination of the patient, discharge planning, medication reconciliation, and communication with other providers. Discharge Instructions Please refer to the electronic Patient Visit Report (Discharge Instructions) for additional information. Follow-Up PCP GI Vascular surgery Additional Copies To Meli Pruett ., [employer]
[2018-03-01 13:40] VITALS: BP 145/91; PULSE 88; TEMP 36.4; O2SAT 98
== END 2018-03-01 15:00 | disposition home or self-care (01) | DRG 102 ==
LOC: C.EDB 21:46 → C.2T 02-28 02:44 → ENRESERV 02-28 02:54
PROVIDERS: ADMIT Hospitalist; ATTEND Hospitalist
DX: G43.109 Migraine with aura, not intractable, without status migrainosus (principal); I77.71 Dissection of carotid artery; G45.9 Transient cerebral ischemic attack, unspecified; R29.701 NIHSS score 1; I48.91 Unspecified atrial fibrillation; E11.22 Type 2 diabetes mellitus with diabetic chronic kidney disease; I13.10 Hypertensive heart and chronic kidney disease without heart failure, with stage 1 through stage 4 chronic kidney disease, or unspecified chronic kidney disease; N18.3 Chronic kidney disease, stage 3 (moderate); K21.9 Gastro-esophageal reflux disease without esophagitis; E11.40 Type 2 diabetes mellitus with diabetic neuropathy, unspecified; Z79.899 Other long term (current) drug therapy; Z79.01 Long term (current) use of anticoagulants; Z79.84 Long term (current) use of oral hypoglycemic drugs; Z85.038 Personal history of other malignant neoplasm of large intestine; Z87.891 Personal history of nicotine dependence; Z88.5 Allergy status to narcotic agent; Z88.8 Allergy status to other drugs, medicaments and biological substances; Z88.7 Allergy status to serum and vaccine; Z82.49 Family history of ischemic heart disease and other diseases of the circulatory system

== ENCOUNTER 2019-01-15 19:45 | Inpatient (IN) ==
[2019-01-15 20:04] LABS: Base Excess VBG -0.6 mEq/L; HCO3 VBG 21 mmol/L; Oxygen Saturation VBG < 60.0 %; PCO2 VBG 28 mmHg (38-50); PO2 VBG 25 mmHg
[2019-01-15] MEDS ORDERED: SODIUM CHLORIDE 0.9% 1000ML 500 ML IV ONE (20:04)
[2019-01-15 20:08] LABS: Basophils # (auto) 0.05 K/uL (0-0.2); Basophils % (auto) 0.6 %; Eosinophils # (auto) 0.06 K/uL (0-0.5); Eosinophils % (auto) 0.8 %; Hematocrit (blood only) 38.1 % (42-52); Hemoglobin 12.6 g/dL (14.0-18.0); Immature Granulocytes # (auto) 0.02 K/uL (0.00-0.02); Immature Granulocytes % (auto) 0.3 %; Lymphocytes # (auto) 1.05 K/uL (1.2-3.4); Lymphocytes % (auto) 13.3 %; Mean Corpuscular Hgb Conc 33.1 g/dL (32-36); Mean Corpuscular Volume 80.5 fL (80-100); Mean Platelet Volume 8.9 fL (7.4-10.4); Monocytes # (auto) 0.73 K/uL (0.11-0.59); Monocytes % (auto) 9.2 %; Neutrophils % (auto) 75.8 %; Platelet Count 204 K/uL (130-400); RDW Coefficient of Variation 14.1 % (11.5-14.5); RDW Standard Deviation 41.3 fL (36.4-46.3); Red Blood Count 4.73 M/uL (4.7-6.1); White Blood Count 7.91 K/uL (4.8-10.8)
[2019-01-15 20:12] LABS: iSTAT Creatinine 1.4 mg/dl (0.6-1.3); iSTAT Hemoglobin 12.9 g/dl (14.0-18.0); iSTAT Ionized Calcium 1.14 mmol/l (1.12-1.32); iSTAT Potassium 4.4 mEq/L (3.3-5.0)
[2019-01-15] MEDS ORDERED: OPTIRAY 320 125ml IV PRN (20:13)
[2019-01-15 20:24] LABS: Alanine Aminotransferase 17 U/L (12-78); Albumin Level 3.9 gm/dl (3.4-5.0); Aspartate Aminotransferase 14 U/L (15-37); BUN Creatinine Ratio 12.1 (10-20); Blood Urea Nitrogen 19 mg/dl (7-18); Calcium 9.3 mg/dl (8.5-10.1); Carbon Dioxide 24 mmol/L (21-32); Chloride 105 mmol/L (98-107); Creatinine Clr Calc Pharmacy 40.7 ml/min; Est GFR (African American) 47.9; Est GFR (Non-African American) 41.4; Glucose 144 mg/dl (70-99); Potassium 4.3 mmol/L (3.5-5.1); Sodium 140 mmol/L (136-145)
--- NOTE | 2019-01-15 20:24 | CT Scan Report ---
UNENHANCED CT OF THE BRAIN; CT ANGIOGRAM OF THE BRAIN; CT ANGIOGRAM OF THE NECK CLINICAL HISTORY: Headache. Dysarthria. Aphasia. COMPARISON STUDY: CT of the brain, CT angiogram of the brain, and CT angiogram of the neck dated 02/13. TECHNIQUE: Unenhanced axial CT scan of the brain is performed. Subsequently, following the IV adminis tration of 115 of [address] 320, CT angiogram of the head and neck was performed from the aortic arch t o the vertex. Images are reviewed in the axial, sagittal, and coronal planes. 3-D MIPS images are cre ated and assessed. IV contrast was administered without complication. All measurements were calculate d based on NASCET criteria. A dose lowering technique was utilized adhering to the principles of ALA RA. CT DOSE: 1290.61 mGy.cm FINDINGS: Brain parenchyma: There is age-related involutional change noting minimal subcortical and periventric ular microangiopathic disease. There is no hemorrhage, mass effect, or evidence of acute territorial ischemia by CT criteria. There is no evidence of enhancing mass lesion on the angiogram phase images. The ventricles, sulci, and cisterns are prominent secondary to involutional change. Arredondo-white matte r differentiation is preserved. No extra-axial fluid collection is seen. Thoracic aorta: Visualized portions of the thoracic aorta are normal in caliber. The aortic arch demo nstrates standard 3-vessel anatomy. Right carotid arterial system: The right common carotid artery is widely patent, as are the right int ernal and external carotid arteries. A small focal dissection is again questioned the proximal right internal carotid artery on image #[id number]. Left carotid arterial system: The left common carotid artery is widely patent, as are the left risk management internship al and external carotid arteries. Vertebral arteries: The vertebral arteries are widely patent bilaterally and codominant in the neck. Subclavian arteries: Widely patent bilaterally. Intracranial vasculature: There is atherosclerotic calcification of the cavernous carotid and vertebr al arteries. The internal carotid arteries are patent at the skull base, as are the anterior and midd le cerebral arteries bilaterally. The vertebrobasilar system and posterior cerebral arteries are wide ly patent. The left vertebral artery is dominant. There is no aneurysm, high-grade stenosis, or focal vessel cut off seen throughout the intracranial circulation. Jugular veins: Widely patent bilaterally. Dural sinuses: Patent. Lung apices: Partially visualized upper lobe lung parenchyma appears clear. Soft tissues: The visualized pharyngeal soft tissues are normal in appearance noting angiographic pha se technique. The oropharyngeal airway appears widely patent. The salivary and thyroid glands are nor mal in appearance. No cervical lymphadenopathy is seen. Skeletal structures: The skeletal structures are osteopenic. The calvarium appears intact. The cervic al spine is maintained noting multilevel spondylosis. Orbits: The bony orbits are intact. There are bilateral ocular lens implants. Sinuses and mastoids: The paranasal sinuses are clear. There is a small right mastoid effusion. The l eft mastoid air cells are well pneumatized. IMPRESSION: 1. There is no hemorrhage, mass effect, or evidence of acute territorial ischemia by CT criteria. 2. Unremarkable CT angiogram of the brain. 3. 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 This i s unchanged from 02/27/2018. 4. Otherwise unremarkable CT angiogram of the neck. Electronically signed by: Behzad Bradley M.D. 01/15/2019 8:22 PM
[2019-01-15 20:25] LABS: Partial Thromboplastin Ratio 0.9; Partial Thromboplastin Time 24.2 Seconds (21.0-31.0); Prothrombin Time 10.5 Seconds (9.0-12.0)
[2019-01-15 20:29] LABS: Albumin Globulin Ratio 1.2 (0.9-2); Alkaline Phosphatase 72 U/L (45-117); Globulin 3.3 gm/dl (2.5-4.0); Total Protein 7.2 gm/dl (6.4-8.2); Troponin I < 0.015 ng/ml (0-0.045)
--- NOTE | 2019-01-15 20:55 | XRay Report ---
SINGLE VIEW CHEST CLINICAL HISTORY: Change in mental status. FINDINGS: An AP, portable, upright chest radiograph is compared to study dated 02/27/2018. The examina tion is degraded by portable technique and patient rotation. The heart is enlarged and there is athe rosclerotic calcification of the thoracic aorta. The pulmonary vasculature is noncongested. Chronic i nterstitial thickening is similar to previous. No airspace consolidation or large pleural effusion is identified. No pneumothorax is seen. The skeletal structures are osteopenic. The bony thorax is tino sly intact. IMPRESSION: Cardiomegaly with no acute cardiopulmonary abnormality. Electronically signed by: Behzad Bradley M.D. 01/15/2019 8:54 PM
[2019-01-15 21:08] LABS: Appearance Urine Clear (Clear); Bilirubin Urine Negative (Negative); Blood Urine Negative (Negative); Color Urine Yellow; Glucose Urine UA Negative (Negative); Ketones Urine 1+ (Negative); Leukocyte Esterase Urine Negative (Negative); Nitrite Urine Negative (Negative); Protein Urine Negative (Negative); Specific Gravity Urine 1.023 (1.000-1.030); Urobilinogen Urine Negative (Negative)
[2019-01-15 21:13] LABS: Phosphorus 2.1 mg/dl (2.5-4.9)
[2019-01-15 21:26] LABS: T4 Free Thyroxine 0.95 ng/dl (0.8-1.6)
--- NOTE | 2019-01-15 22:07 | Emergency Department Note ---
Entered by Molly Caldwell acting as a scribe for Ac Espinoza MD History of Present Illness General Chief complaint: Shortness of Breath/Dyspnea Stated complaint: CONFUSION, CVA SX Time Seen by Provider: 01/15/19 19:46 Source: patient Limitations: no limitations History of Present Illness Onset (ago): hour(s) (2.5) Location: head Severity: similar to prior episodes Pain Consistency: + constant Current Pain Intensity: 0 Quality: + other (neurological symptoms) Associated symptoms: + confusion and + other ("difficulty getting his words out" ); no chest pain and no shortness of breath The patient is an 83 year old male who presents to the ED complaining of constant neurological symptoms that began FOUNDER. The patient's , at bedside, states that she noticed he was confused while working on the computer by himself at 15:30. She states that he was normal before then. The son, at bedside, states that he believes his father became confused around 17:30. The patient reports that this is similar to the symptoms that he experienced the last time he stopped taking his Xarelto. His son reports that the patient's last episode wasn't definitive, but it is thought to be a "tear in the artery of his neck." The patient states that he has been off of his Xarelto for 2 days for a colonoscopy. He complains of "feeling like a Buzzard's crotch." The patient complains of confusion and "difficulty getting his words out." He denies any chest pain, SOB, and pain. The patient states that he is not on oxygen normally. He notes a history of smoking cigarettes, but he states that he quit over 30 years go. The patient denies any history of asthma, COPD, and cardiac stent placement. He notes a history of A-fib. Home Medications Home Medications Medication Instructions Recorded Confirmed Type diltiazem HCl 120 mg PO QPM 12/29/18 01/15/19 History glipizide 5 mg PO QAM 12/29/18 01/15/19 History metformin 500 mg PO QDD 12/29/18 01/15/19 History metoprolol succinate 100 mg PO QAM 12/29/18 01/15/19 History pantoprazole 40 mg PO QAM 12/29/18 01/15/19 History rivaroxaban [Xarelto] 20 mg PO QAM 12/29/18 01/15/19 History simvastatin 40 mg PO PM 12/29/18 01/15/19 History Allergies Allergy/AdvReac Type Severity Reaction Status Date / Time hydromorphone Allergy Intermediate HALLUCINATI Verified 01/15/19 20:14 ONS lorazepam Allergy Intermediate HALLUCINATI Verified 01/15/19 20:14 ONS tetanus toxoid, adsorbed Allergy Intermediate BLISTERS Verified 01/15/19 20:14 AND EYES SWELLING Past Med/Surg History Medical History Atrial fibrillation follows with Dr. Patel Basal cell carcinoma (BCC) of face Basal cell carcinoma, arm Diabetes mellitus, type 2 Hiatal hernia History of anesthesia reaction had hallucination when having tonsils removed History of colon cancer 1979 History of yellow fever Hyperlipidemia Hypertension Migraine On anticoagulant therapy xarelto daily Osteoarthritis Squamous cell carcinoma skin of arm Surgical History History of bowel resection for colon cancer History of cardioversion x2 History of colonoscopy History of colostomy History of esophagogastroduodenoscopy (EGD) History of phacoemulsification of cataract of both eyes with intraocular lens implantation History of root canal procedure History of tonsillectomy and adenoidectomy History of total right hip replacement History of wisdom tooth extraction Hx of abdominal surgery bowel obstruction Hx of vasectomy Status post Mohs surgery for basal cell carcinoma Family History Father Family history of diabetes mellitus Other No family history of adverse response to anesthesia Social History Preferred Language: Dominican Communication Ability: Effective 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 and A total of 10 systems reviewed and were otherwise negative Physical Exam Vital Signs Vital Signs - 24 hr 01/15/19 19:47 01/15/19 19:51 01/15/19 19:52 Temperature 36.8 C Temperature Source Oral Sepsis Recent Fever Within 48 Hours No Sepsis New/Unexplained Change in Mental Status No Sepsis Action Taken by Nursing No Action Required Pulse Rate 103 H Pulse Rate from SpO2 Sensor Respiratory Rate 28 H Respiratory Depth Normal Respiratory Pattern Tachypnea Blood Pressure 165/91 H Blood Pressure Mean 115 Pulse Oximetry 100 100 Oxygen Delivery Method Nasal Cannula Nasal Cannula Oxygen Flow Rate 2 2 01/15/19 20:15 01/15/19 20:29 01/15/19 20:30 Temperature Temperature Source Sepsis Recent Fever Within 48 Hours Sepsis New/Unexplained Change in Mental Status Sepsis Action Taken by Nursing Pulse Rate 84 86 93 H Pulse Rate from SpO2 Sensor 102 H 90 Respiratory Rate 21 24 33 H Respiratory Depth Respiratory Pattern Blood Pressure 166/94 H Blood Pressure Mean 118 Pulse Oximetry 85 L 95 Oxygen Delivery Method Oxygen Flow Rate 01/15/19 20:31 01/15/19 20:45 01/15/19 20:46 Temperature Temperature Source Sepsis Recent Fever Within 48 Hours Sepsis New/Unexplained Change in Mental Status Sepsis Action Taken by Nursing Pulse Rate 90 102 H 95 H Pulse Rate from SpO2 Sensor 88 Respiratory Rate 23 23 20 Respiratory Depth Respiratory Pattern Blood Pressure 162/92 H 162/114 H Blood Pressure Mean 115 130 Pulse Oximetry 92 Oxygen Delivery Method Oxygen Flow Rate 01/15/19 21:01 01/15/19 21:31 01/15/19 21:46 Temperature Temperature Source Sepsis Recent Fever Within 48 Hours Sepsis New/Unexplained Change in Mental Status Sepsis Action Taken by Nursing Pulse Rate 84 82 122 H Pulse Rate from SpO2 Sensor 86 Respiratory Rate 18 20 24 Respiratory Depth Respiratory Pattern Blood Pressure 173/89 H 158/86 H Blood Pressure Mean 117 110 Pulse Oximetry 97 Oxygen Delivery Method Oxygen Flow Rate 01/15/19 22:00 01/15/19 22:19 01/15/19 22:48 Temperature Temperature Source Sepsis Recent Fever Within 48 Hours Sepsis New/Unexplained Change in Mental Status Sepsis Action Taken by Nursing Pulse Rate 88 103 H 94 H Pulse Rate from SpO2 Sensor Respiratory Rate 21 22 20 Respiratory Depth Respiratory Pattern Blood Pressure 161/97 H 136/71 146/100 H Blood Pressure Mean 118 92 115 Pulse Oximetry Oxygen Delivery Method Oxygen Flow Rate GENERAL: Awake, alert, fatigued-appearing, in no distress HENT: Normocephalic, atraumatic. Oropharynx with dry mucous membranes and otherwise unremarkable. EYES: Normal conjunctiva. Sclera non-icteric. NECK: Supple. No nuchal rigidity. FROM. No JVD. RESPIRATORY: CTAB. CARDIAC: Regular rate, irregular rhythm. Extremities warm and well perfused. Pulses equal. ABDOMEN: Soft, non-distended. No tenderness to palpation. No rebound or guarding. No masses. RECTAL: Deferred. MUSCULOSKELETAL: Chest examination reveals no tenderness. The back is symmetrical on inspection without obvious abnormality. There is no CVA tenderness to palpation. No joint edema. LOWER EXTREMITIES: Calves are equal size bilaterally and non-tender. No edema. No discoloration. NEURO: Normal sensorium. No sensory or motor deficits noted. Severe aphasia. No dysarthria. 5/5 strength and SILT x4 extremities. SKIN: No rash or jaundice noted. Course 1946: The patient was evaluated in room B01. A complete history and physical ex am was performed. The patient denied any recent bleeding, abnormal kidney function, or abnormal blood tests. 2015: I spoke with Dr. Bazzi, [facility] neurology, about the patient's case. 2018: I spoke with the patient's , at bedside, and she stated that she noticed that he was confused while working on the computer at 15:30. She states that he was normal before then. 2019: I updated Dr. Bazzi about the new last well known time. 2053: I spoke with Dr. Mcqueen, [facility] hospitalist, about the patients case. He will further evaluate the patient. Consultations Consultation #1: I spoke with Dr. Bazzi, [facility] neurology, about the patient's case. Time: 20:15 Consultation #2: I spoke with Dr. Mcqueen, [facility] hospitalist, about the patients case. He will further evaluate the patient. Time: 20:54 Administered Medications Heparin Sodium/Dextrose (Heparin Sodium/Dextrose) 25,000 units in 500 mls @ 18 mls/hr IV .Q24H RACHEL; Protocol Stop: 02/14/19 22:44 Last Admin: 01/15/19 22:57 Dose: Not Given Documented by: [id number] Potassium Chloride/Sodium Chloride (Normal Saline W/20 Meq Kcl) 20 meq in 1,000 mls @ 100 mls/hr IV .Q10H RACHEL Stop: 02/15/19 00:10 Last Admin: 01/16/19 00:54 Dose: 100 mls/hr Documented by: [id number] Ioversol (Optiray 320 125ml) 115 ml IV ONCE PRN PRN Reason: Interaction Checking Stop: 01/19/19 20:12 Last Admin: 01/15/19 20:13 Dose: 115 ml Documented by: [id number] Metoprolol Tartrate (Lopressor) 5 mg IV Q4 RACHEL Stop: 02/15/19 00:10 Last Admin: 01/16/19 05:02 Dose: 5 mg Documented by: [id number] Admin: 01/16/19 00:55 Dose: 5 mg Documented by: [id number] Discontinued Medications Heparin Sodium/Dextrose (Heparin Sodium/Dextrose) Confirm Administered Dose 25,000 units IV .STK-MED ONE Stop: 01/15/19 22:37 Last Admin: 01/15/19 22:52 Dose: 900 units Documented by: [id number] Cosigned by: [id number] Sodium Chloride (Nss 1000ml) 500 mls @ 999 mls/hr IV .Q31M ONE Stop: 01/15/19 20:34 Last Infusion: 01/15/19 21:15 Dose: 0 mls/hr Documented by: [id number] Admin: 01/15/19 20:47 Dose: 999 mls/hr Documented by: [id number] Medical Decision Making Differential Diagnosis Differential includes acute coronary syndrome, myocardial infarction, CVA, TIA, anemia, infection, pneumonia, UTI, pyelonephritis, poor nutrition, dehydration, electrolyte disturbance,hypoglycemia. Medical Records Attestation: I reviewed the patient's medical records. Home Medications Current Medication List: was personally reviewed by me Laboratory Data Attestation: I reviewed the patient's lab results. Result diagrams: 01/15/19 19:59 01/15/19 19:59 Lab Results 01/15/19 01/15/19 01/15/19 Range/Units 19:51 19:54 19:54 WBC (4.8-10.8) K/uL RBC (4.7-6.1) M/uL Hgb (14.0-18.0) g/dL POC Hgb (14.0-18.0) g/dl Hct (42-52) % POC Hct (42-52) % MCV (80-100) fL MCH (25-34) pg MCHC (32-36) g/dL RDW Std Deviation (36.4-46.3) fL RDW Coeff of Parisa (11.5-14.5) % Plt Count (130-400) K/uL MPV (7.4-10.4) fL Immature Gran % (Auto) % Neut % (Auto) % Lymph % (Auto) % Whitman % (Auto) % Eos % (Auto) % Baso % (Auto) % Immature Gran # (Auto) (0.00-0.02) K/uL Neut # (Auto) (1.4-6.5) K/uL Lymph # (Auto) (1.2-3.4) K/uL Whitman # (Auto) (0.11-0.59) K/uL Eos # (Auto) (0-0.5) K/uL Baso # (Auto) (0-0.2) K/uL PT (9.0-12.0) Seconds INR (0.9-1.1) APTT (21.0-31.0) Seconds PTT Ratio VBG pH 7.50 H (7.36-7.41) VBG pCO2 28 L (38-50) mmHg VBG pO2 25 mmHg VBG HCO3 21 mmol/L VBG O2 Saturation < 60.0 % VBG Base Excess -0.6 mEq/L Barometric Pressure 727.0 mm/Hg POC Sodium (135-144) mEq/L Sodium (136-145) mmol/L POC Potassium (3.3-5.0) mEq/L Potassium (3.5-5.1) mmol/L POC Chloride (101-112) mEq/L Chloride (98-107) mmol/L Carbon Dioxide (21-32) mmol/L POC Total CO2 (24-31) mEq/l Anion Gap (3-11) POC Anion Gap (16-25) mmol/L POC BUN (7-18) mg/dl BUN (7-18) mg/dl Creatinine (0.6-1.4) mg/dl POC Creatinine (0.6-1.3) mg/dl Est Cr Clr Drug Dosing ml/min Est GFR ( Amer) Est GFR (Non-Af Amer) BUN/Creatinine Ratio (10-20) Glucose (70-99) mg/dl POC Glucose 145 H (70-99) POC Glucose (other) (70-99) mg/dl Lactate 2.3 H* (0.4-2.0) mmol/L Calcium (8.5-10.1) mg/dl POC Ioniz Calcium Rochelle (1.12-1.32) mmol/l Phosphorus (2.5-4.9) mg/dl Magnesium (1.8-2.4) mg/dl Total Bilirubin (0.2-1) mg/dl AST (15-37) U/L ALT (12-78) U/L Alkaline Phosphatase (45-117) U/L POC Troponin I (0-0.045) ng/ml Troponin I (0-0.045) ng/ml Total Protein (6.4-8.2) gm/dl Albumin (3.4-5.0) gm/dl Globulin (2.5-4.0) gm/dl Albumin/Globulin Ratio (0.9-2) TSH (0.300-4.500) uIu/ml Free T4 (0.8-1.6) ng/dl Urine Color Urine Appearance (Clear) Urine pH (4.5-7.5) Ur Specific [place] (1.000-1.030) Urine Protein (Negative) Urine Glucose (UA) (Negative) Urine Ketones (Negative) Urine Blood (Negative) Urine Nitrite (Negative) Urine Bilirubin (Negative) Urine Urobilinogen (Negative) Ur Leukocyte Esterase (Negative) Blood Type Antibody Screen 01/15/19 01/15/19 01/15/19 Range/Units 19:57 19:58 19:59 WBC 7.91 (4.8-10.8) K/uL RBC 4.73 (4.7-6.1) M/uL Hgb 12.6 L (14.0-18.0) g/dL POC Hgb 12.9 L (14.0-18.0) g/dl Hct 38.1 L (42-52) % POC Hct 38 L (42-52) % MCV 80.5 (80-100) fL MCH 26.6 (25-34) pg MCHC 33.1 (32-36) g/dL RDW Std Deviation 41.3 (36.4-46.3) fL RDW Coeff of Parisa 14.1 (11.5-14.5) % Plt Count 204 (130-400) K/uL MPV 8.9 (7.4-10.4) fL Immature Gran % (Auto) 0.3 % Neut % (Auto) 75.8 % Lymph % (Auto) 13.3 % Whitman % (Auto) 9.2 % Eos % (Auto) 0.8 % Baso % (Auto) 0.6 % Immature Gran # (Auto) 0.02 (0.00-0.02) K/uL Neut # (Auto) 6.00 (1.4-6.5) K/uL Lymph # (Auto) 1.05 L (1.2-3.4) K/uL Whitman # (Auto) 0.73 H (0.11-0.59) K/uL Eos # (Auto) 0.06 (0-0.5) K/uL Baso # (Auto) 0.05 (0-0.2) K/uL PT (9.0-12.0) Seconds INR (0.9-1.1) APTT (21.0-31.0) Seconds PTT Ratio VBG pH (7.36-7.41) VBG pCO2 (38-50) mmHg VBG pO2 mmHg VBG HCO3 mmol/L VBG O2 Saturation % VBG Base Excess mEq/L Barometric Pressure mm/Hg POC Sodium 138 (135-144) mEq/L Sodium (136-145) mmol/L POC Potassium 4.4 (3.3-5.0) mEq/L Potassium (3.5-5.1) mmol/L POC Chloride 104 (101-112) mEq/L Chloride (98-107) mmol/L Carbon Dioxide (21-32) mmol/L POC Total CO2 21 L (24-31) mEq/l Anion Gap (3-11) POC Anion Gap 19.0 (16-25) mmol/L POC BUN 18 (7-18) mg/dl BUN (7-18) mg/dl Creatinine (0.6-1.4) mg/dl POC Creatinine 1.4 H (0.6-1.3) mg/dl Est Cr Clr Drug Dosing ml/min Est GFR ( Amer) Est GFR (Non-Af Amer) BUN/Creatinine Ratio (10-20) Glucose (70-99) mg/dl POC Glucose (70-99) POC Glucose (other) 148 H (70-99) mg/dl Lactate (0.4-2.0) mmol/L Calcium (8.5-10.1) mg/dl POC Ioniz Calcium Rochelle 1.14 (1.12-1.32) mmol/l Phosphorus (2.5-4.9) mg/dl Magnesium (1.8-2.4) mg/dl Total Bilirubin (0.2-1) mg/dl AST (15-37) U/L ALT (12-78) U/L Alkaline Phosphatase (45-117) U/L POC Troponin I < 0.03 (0-0.045) ng/ml Troponin I (0-0.045) ng/ml Total Protein (6.4-8.2) gm/dl Albumin (3.4-5.0) gm/dl Globulin (2.5-4.0) gm/dl Albumin/Globulin Ratio (0.9-2) TSH (0.300-4.500) uIu/ml Free T4 (0.8-1.6) ng/dl Urine Color Urine Appearance (Clear) Urine pH (4.5-7.5) Ur Specific [place] (1.000-1.030) Urine Protein (Negative) Urine Glucose (UA) (Negative) Urine Ketones (Negative) Urine Blood (Negative) Urine Nitrite (Negative) Urine Bilirubin (Negative) Urine Urobilinogen (Negative) Ur Leukocyte Esterase (Negative) Blood Type Antibody Screen 01/15/19 01/15/19 01/15/19 Range/Units 19:59 19:59 19:59 WBC (4.8-10.8) K/uL RBC (4.7-6.1) M/uL Hgb (14.0-18.0) g/dL POC Hgb (14.0-18.0) g/dl Hct (42-52) % POC Hct (42-52) % MCV (80-100) fL MCH (25-34) pg MCHC (32-36) g/dL RDW Std Deviation (36.4-46.3) fL RDW Coeff of Parisa (11.5-14.5) % Plt Count (130-400) K/uL MPV (7.4-10.4) fL Immature Gran % (Auto) % Neut % (Auto) % Lymph % (Auto) % Whitman % (Auto) % Eos % (Auto) % Baso % (Auto) % Immature Gran # (Auto) (0.00-0.02) K/uL Neut # (Auto) (1.4-6.5) K/uL Lymph # (Auto) (1.2-3.4) K/uL Whitman # (Auto) (0.11-0.59) K/uL Eos # (Auto) (0-0.5) K/uL Baso # (Auto) (0-0.2) K/uL PT 10.5 (9.0-12.0) Seconds INR 1.0 (0.9-1.1) APTT 24.2 (21.0-31.0) Seconds PTT Ratio 0.9 VBG pH (7.36-7.41) VBG pCO2 (38-50) mmHg VBG pO2 mmHg VBG HCO3 mmol/L VBG O2 Saturation % VBG Base Excess mEq/L Barometric Pressure mm/Hg POC Sodium (135-144) mEq/L Sodium 140 (136-145) mmol/L POC Potassium (3.3-5.0) mEq/L Potassium 4.3 (3.5-5.1) mmol/L POC Chloride (101-112) mEq/L Chloride 105 (98-107) mmol/L Carbon Dioxide 24 (21-32) mmol/L POC Total CO2 (24-31) mEq/l Anion Gap 11.0 (3-11) POC Anion Gap (16-25) mmol/L POC BUN (7-18) mg/dl BUN 19 H (7-18) mg/dl Creatinine 1.55 H (0.6-1.4) mg/dl POC Creatinine (0.6-1.3) mg/dl Est Cr Clr Drug Dosing 40.7 ml/min Est GFR ( Amer) 47.9 Est GFR (Non-Af Amer) 41.4 BUN/Creatinine Ratio 12.1 (10-20) Glucose 144 H (70-99) mg/dl POC Glucose (70-99) POC Glucose (other) (70-99) mg/dl Lactate (0.4-2.0) mmol/L Calcium 9.3 (8.5-10.1) mg/dl POC Ioniz Calcium Rochelle (1.12-1.32) mmol/l Phosphorus (2.5-4.9) mg/dl Magnesium 2.0 (1.8-2.4) mg/dl Total Bilirubin 1.0 (0.2-1) mg/dl AST 14 L (15-37) U/L ALT 17 (12-78) U/L Alkaline Phosphatase 72 (45-117) U/L POC Troponin I (0-0.045) ng/ml Troponin I < 0.015 (0-0.045) ng/ml Total Protein 7.2 (6.4-8.2) gm/dl Albumin 3.9 (3.4-5.0) gm/dl Globulin 3.3 (2.5-4.0) gm/dl Albumin/Globulin Ratio 1.2 (0.9-2) TSH (0.300-4.500) uIu/ml Free T4 (0.8-1.6) ng/dl Urine Color Urine Appearance (Clear) Urine pH (4.5-7.5) Ur Specific [place] (1.000-1.030) Urine Protein (Negative) Urine Glucose (UA) (Negative) Urine Ketones (Negative) Urine Blood (Negative) Urine Nitrite (Negative) Urine Bilirubin (Negative) Urine Urobilinogen (Negative) Ur Leukocyte Esterase (Negative) Blood Type A Positive Antibody Screen NEGATIVE 01/15/19 01/15/19 Range/Units 20:50 20:51 WBC (4.8-10.8) K/uL RBC (4.7-6.1) M/uL Hgb (14.0-18.0) g/dL POC Hgb (14.0-18.0) g/dl Hct (42-52) % POC Hct (42-52) % MCV (80-100) fL MCH (25-34) pg MCHC (32-36) g/dL RDW Std Deviation (36.4-46.3) fL RDW Coeff of Parisa (11.5-14.5) % Plt Count (130-400) K/uL MPV (7.4-10.4) fL Immature Gran % (Auto) % Neut % (Auto) % Lymph % (Auto) % Whitman % (Auto) % Eos % (Auto) % Baso % (Auto) % Immature Gran # (Auto) (0.00-0.02) K/uL Neut # (Auto) (1.4-6.5) K/uL Lymph # (Auto) (1.2-3.4) K/uL Whitman # (Auto) (0.11-0.59) K/uL Eos # (Auto) (0-0.5) K/uL Baso # (Auto) (0-0.2) K/uL PT (9.0-12.0) Seconds INR (0.9-1.1) APTT (21.0-31.0) Seconds PTT Ratio VBG pH (7.36-7.41) VBG pCO2 (38-50) mmHg VBG pO2 mmHg VBG HCO3 mmol/L VBG O2 Saturation % VBG Base Excess mEq/L Barometric Pressure mm/Hg POC Sodium (135-144) mEq/L Sodium (136-145) mmol/L POC Potassium (3.3-5.0) mEq/L Potassium (3.5-5.1) mmol/L POC Chloride (101-112) mEq/L Chloride (98-107) mmol/L Carbon Dioxide (21-32) mmol/L POC Total CO2 (24-31) mEq/l Anion Gap (3-11) POC Anion Gap (16-25) mmol/L POC BUN (7-18) mg/dl BUN (7-18) mg/dl Creatinine (0.6-1.4) mg/dl POC Creatinine (0.6-1.3) mg/dl Est Cr Clr Drug Dosing ml/min Est GFR ( Amer) Est GFR (Non-Af Amer) BUN/Creatinine Ratio (10-20) Glucose (70-99) mg/dl POC Glucose (70-99) POC Glucose (other) (70-99) mg/dl Lactate (0.4-2.0) mmol/L Calcium (8.5-10.1) mg/dl POC Ioniz Calcium Rochelle (1.12-1.32) mmol/l Phosphorus 2.1 L (2.5-4.9) mg/dl Magnesium (1.8-2.4) mg/dl Total Bilirubin (0.2-1) mg/dl AST (15-37) U/L ALT (12-78) U/L Alkaline Phosphatase (45-117) U/L POC Troponin I (0-0.045) ng/ml Troponin I (0-0.045) ng/ml Total Protein (6.4-8.2) gm/dl Albumin (3.4-5.0) gm/dl Globulin (2.5-4.0) gm/dl Albumin/Globulin Ratio (0.9-2) TSH 4.990 H (0.300-4.500) uIu/ml Free T4 0.95 (0.8-1.6) ng/dl Urine Color Yellow Urine Appearance Clear (Clear) Urine pH 8.0 H (4.5-7.5) Ur Specific [place] 1.023 (1.000-1.030) Urine Protein Negative (Negative) Urine Glucose (UA) Negative (Negative) Urine Ketones 1+ H (Negative) Urine Blood Negative (Negative) Urine Nitrite Negative (Negative) Urine Bilirubin Negative (Negative) Urine Urobilinogen Negative (Negative) Ur Leukocyte Esterase Negative (Negative) Blood Type Antibody Screen Imaging Data Radiologist's Impression: Radiology results as stated below per my review and the radiologist's interpretation: UNENHANCED CT OF THE BRAIN; CT ANGIOGRAM OF THE BRAIN; CT ANGIOGRAM OF THE NECK CLINICAL HISTORY: Headache. Dysarthria. Aphasia. COMPARISON STUDY: CT of the brain, CT angiogram of the brain, and CT angiogram of the neck dated 02/27/2018. TECHNIQUE: Unenhanced axial CT scan of the brain is performed. Subsequently, following the IV administration of 115 of Optiray 320, CT angiogram of the head and neck was performed from the aortic arch to the vertex. Images are reviewed in the axial, sagittal, and coronal planes. 3-D MIPS images are created and assessed. IV contrast was administered without complication. All measurements were calculated based on NASCET criteria. A dose lowering technique was utilized adhering to the principles of ALARA. CT DOSE: 1290.61 mGy.cm FINDINGS: Brain parenchyma: There is age-related involutional change noting minimal subcortical and periventricular microangiopathic disease. There is no hemorrhage, mass effect, or evidence of acute territorial ischemia by CT criteria. There is no evidence of enhancing mass lesion on the angiogram phase images. The ventricles, sulci, and cisterns are prominent secondary to involutional change. Arredondo-white matter differentiation is preserved. No extra- axial fluid collection is seen. Thoracic aorta: Visualized portions of the thoracic aorta are normal in caliber. The aortic arch demonstrates standard 3-vessel anatomy. Right carotid arterial system: The right common carotid artery is widely patent, as are the right internal and external carotid arteries. A small focal dissection is again questioned the proximal right internal carotid artery on image #[id number]. Left carotid arterial system: The left common carotid artery is widely patent, as are the left internal and external carotid arteries. Vertebral arteries: The vertebral arteries are widely patent bilaterally and codominant in the neck. Subclavian arteries: Widely patent bilaterally. Intracranial vasculature: There is atherosclerotic calcification of the cavernous carotid and vertebral arteries. The internal carotid arteries are patent at the skull base, as are the anterior and middle cerebral arteries bilaterally. The vertebrobasilar system and posterior cerebral arteries are widely patent. The left vertebral artery is dominant. There is no aneurysm, high-grade stenosis, or focal vessel cut off seen throughout the intracranial circulation. Jugular veins: Widely patent bilaterally. Dural sinuses: Patent. Lung apices: Partially visualized upper lobe lung parenchyma appears clear. Soft tissues: The visualized pharyngeal soft tissues are normal in appearance noting angiographic phase technique. The oropharyngeal airway appears widely patent. The salivary and thyroid glands are normal in appearance. No cervical lymphadenopathy is seen. Skeletal structures: The skeletal structures are osteopenic. The calvarium appears intact. The cervical spine is maintained noting multilevel spondylosis. Orbits: The bony orbits are intact. There are bilateral ocular lens implants. Sinuses and mastoids: The paranasal sinuses are clear. There is a small right mastoid effusion. The left mastoid air cells are well pneumatized. IMPRESSION: 1. There is no hemorrhage, mass effect, or evidence of acute territorial ischemia by CT criteria. 2. Unremarkable CT angiogram of the brain. 3. 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 This is unchanged from 02/27/2018. 4. Otherwise unremarkable CT angiogram of the neck. Electronically signed by: Behzad Bradley M.D. 01/15/2019 8:22 PM SINGLE VIEW CHEST CLINICAL HISTORY: Change in mental status. FINDINGS: An AP, portable, upright chest radiograph is compared to study dated 02/27/2018. The examination is degraded by portable technique and patient rotation. The heart is enlarged and there is atherosclerotic calcification of the thoracic aorta. The pulmonary vasculature is noncongested. Chronic interstitial thickening is similar to previous. No airspace consolidation or large pleural effusion is identified. No pneumothorax is seen. The skeletal structures are osteopenic. The bony thorax is grossly intact. IMPRESSION: Cardiomegaly with no acute cardiopulmonary abnormality. Electronically signed by: Behzad Bradley M.D. 01/15/2019 8:54 PM ECG Data Attestation: I personally reviewed and interpreted this ECG as follows: Indication: other (neurological symptoms) Rate (beats per minute): 109 Rhythm: atrial fibrillation (with RVR) Findings: + other (ST and T wave abnormalities, no over ischemia) and + RBBB Comparison ECG Date: from (02/27/2018) Change: no significant change Blood Pressure Blood Pressure Findings: Elevated blood pressure Blood Pressure Disposition: further management by hospitalist STEPHANIE Narrative The patient is a pleasant 83 y/o gentleman with a pmhx of complex migraine, TIA, chronic carotid dissection, afib on xarelto, remote colon cancer s/p colectomy/colostomy who presents to the emergency department with episode of confusion and difficulty with speech in the setting of having stopped his Xarelto for the past 2 days in preparation for outpatient colonoscopy per HPI. Fingerstick glucose within normal limits. Establishing last known well was unclear however initial report was symptoms were noticed at 5:30 PM but later it was identified that the patient was noticed to be confused at 330 when he was working at the computer and was seen by his . Prior to 330 the patient was working alone on his computer and so definitive last known well is unclear. Of note, patient had a similar episode to this under similar circumstances in 2018 when he had stopped his Xarelto in preparation for a colonoscopy. Diagnosis from that episode was unclear given his MRI was negative but suspected TIA versus complex migraine. The patient's chronic carotid dissection was observed at that time as well. On arrival the patient is fatigued appearing but in NAD, AFVSS. On exam the patient has severe aphasia unable to name simple objects such as watch or clock and repeatedly calls them "a pen" despite given the patient multiple attempts. EKG demonstrates A. fib with ST and T wave ab normalities that are similar to his prior EKG. Chest x-ray negative. WBC and platelets wnl. H/H is similar to prior value. Creatinine 1.55 slightly increased from recent but within prior range of values. Lactate 2.3 however chemistry without acidosis. Phosphorus 2.1 and otherwise LFTs and electrolytes unremarkable. Troponin negative. UA negative for infection but 1+ ketones c/w patient's clinically dry appearance. Given the patient's initial unclear last known well stroke alert was activated and CTA was probably obtained though given his low NIH score of 2 symptoms it appeared to be resolving unlikely to be a TPA candidate. Case was discussed [place]. Bazzi, [facility] who evaluated the patient via tele-stroke monitor. Given the patient last normal ultimately was outside the window and is improving symptoms with low NIH score the patient was not a TPA candidate. Moreover the patient's CTA did not show any findings to indicate intervention. Recommend that if plan is to continue with colonoscopy that heparin could be initiated without bolus and stopped 5 hours prior to procedure. Otherwise, recommends admission for MRI and additional monitoring. Case was discussed with Dr. Mcqueen, [facility] [place], who evaluate the patient for admission. Impression & Plan Aphasia Discharge Plan Visit Data *Final* Discharge Date/Time: 01/15/19 23:15 Chief Complaint: Shortness of Breath/Dyspnea Stated Complaint: CONFUSION, CVA SX ED Provider: Ac Espinoza Discharge Problem: Aphasia Patient Disposition: Admitted As Inpatient Discharge Instructions Interventions: ED Discharge Assessment Last Done: 01/15/19 23:15 The scribe's documentation has been prepared under my direction and personally reviewed by me in its entirety. I confirm that the note above accurately reflects all work, treatment, procedures, and medical decision making performed by me.
[2019-01-15] MEDS ORDERED: Heparin IV Low Dose *NO* Bolus ONE (22:31)
[2019-01-15] MEDS ORDERED: HEPARIN 25000 UNIT/500 ML D5W IV ONE (22:36)
[2019-01-15] MEDS: Heparin Adult LOW DOSE Wt-Based Dextrose 5% 25,000 units/500 mL IV SCH ×2 (22:57→23:45)
[2019-01-16] MEDS ORDERED: GLUCAGON FOR INJ 1 MG VIAL SQ PRN (00:11)
[2019-01-16] MEDS ORDERED: CARBOHYDRATES FOR HYPOGLYCEMIA PO PRN (00:11)
[2019-01-16] MEDS ORDERED: GLUCOSE 10 TABS/TUBE PO PRN (00:11)
[2019-01-16] MEDS ORDERED: ONDANSETRON INJ 2 MG/ML 2 ML VIAL IV PRN (00:11)
[2019-01-16] MEDS ORDERED: PHARMACIST DISCHARGE MED REC CONSULT PRN (00:11)
[2019-01-16] MEDS ORDERED: GLUCOSE 40% GEL 15 GM TUBE PO PRN (00:11)
[2019-01-16] MEDS ORDERED: DEXTROSE 50% 50 ML SYRINGE IV PRN (00:11)
[2019-01-16] MEDS: NSS + 20MEQ KCL 20 MEQ/1,000 ML BAG IV SCH ×2 (00:54→11:40)
[2019-01-16] MEDS: METOPROLOL TARTRATE 1 MG/ML VIAL IV SCH ×3 (00:55→07:34)
--- NOTE | 2019-01-16 03:51 | History & Physical Report ---
Date of Service January 16, 2019 Was seen and admitted on January 15, 2019 Assessment & Plan (1) TIA (transient ischemic attack): (2) Aphasia: Present on Admission?: Yes (3) Atrial fibrillation: Atrial fibrillation/hypertension continue diltiazem 120 mg p.o. in the evening, and metoprolol succinate 100 mg p.o. every morning. Patient has been on Xarelto chronically for anticoagulation for stroke prevention. Per his history, this is the second year in a row where the patient has had neurologic symptoms when the Xarelto has been held. Xarelto will be held at this time. We will place patient on heparin IV low-dose without bolus overnight, and have patient seen by his mortgage loan closer Dr. Patel, his clinical rehabilitation specialist and neurology. Nurses do report, that the stroke neurology recommendation from was for the same plan. It can be determined tomorrow whether the patient should continue that plans to undergo colonoscopy. He will be continued on heparin infusion as noted in the meantime for flexibility of discontinuing effect at shorter interval if needed. Present on Admission?: Yes (4) Hypertension: See above Present on Admission?: Yes (5) Diabetes mellitus: Hold metformin 500 mg p.o. daily and glipizide 5 [address] every morning Place on Accu-Cheks before meals and at bedtime with NovoLog coverage per scale Present on Admission?: Yes (6) Hyperlipidemia: Continue simvastatin 40 mg p.o. in evening. Check a fasting lipid panel. (7) Colon cancer: The patient has been undergoing more rigorous colonoscopies due to his history of colon cancer. As noted above, will have cardiology, GI and neurology further discuss risk- benefit ratio with patient. Present on Admission?: Yes History of Present Illness Chief Complaint: The patient presents to the emergency department with confusion that was noted by family members earlier in the day prior to arrival. Primary Care Provider: MELONIE Ceja The patient is an 83-year-old male who presents emergency department with confusion and difficulty getting his words out, the began around 330 this afternoon prior to arrival. Patient had stopped his Xarelto for a colonoscopy was to be done tomorrow, and he notes that he had similar symptoms develop last year at this time when he was asked to stop Xarelto for colonoscopy at that time as well. Symptoms last year did completely resolve but he reports that they took several weeks. He did come into the emergency department as a stroke alert, and it was determined that the patient was not a TPA candidate due to time of onset. His son who is with him now, reports that the patient symptoms are significantly improving, but not yet gotten back to baseline. Allergies Allergy/AdvReac Type Severity Reaction Status Date / Time hydromorphone Allergy Intermediate HALLUCINATI Verified 01/15/19 20:14 ONS lorazepam Allergy Intermediate HALLUCINATI Verified 01/15/19 20:14 ONS tetanus toxoid, adsorbed Allergy Intermediate BLISTERS Verified 01/15/19 20:14 AND EYES SWELLING Home Medications Home Medications Medication Instructions Recorded Confirmed Type diltiazem HCl 120 mg PO QPM 12/29/18 01/15/19 History glipizide 5 mg PO QAM 12/29/18 01/15/19 History metformin 500 mg PO QDD 12/29/18 01/15/19 History metoprolol succinate 100 mg PO QAM 12/29/18 01/15/19 History pantoprazole 40 mg PO QAM 12/29/18 01/15/19 History rivaroxaban [Xarelto] 20 mg PO QAM 12/29/18 01/15/19 History simvastatin 40 mg PO PM 12/29/18 01/15/19 History Past Med/Surg History Medical History Atrial fibrillation follows with Dr. Patel Basal cell carcinoma (BCC) of face Basal cell carcinoma, arm Diabetes mellitus, type 2 Hiatal hernia History of anesthesia reaction had hallucination when having tonsils removed History of colon cancer 1978 History of yellow fever Hyperlipidemia Hypertension Migraine On anticoagulant therapy xarelto daily Osteoarthritis Squamous cell carcinoma skin of arm Surgical History History of bowel resection for colon cancer History of cardioversion x2 History of colonoscopy History of colostomy History of esophagogastroduodenoscopy (EGD) History of phacoemulsification of cataract of both eyes with intraocular lens implantation History of root canal procedure History of tonsillectomy and adenoidectomy History of total right hip replacement History of wisdom tooth extraction Hx of abdominal surgery bowel obstruction Hx of vasectomy Status post Mohs surgery for basal cell carcinoma Family History Father Family history of diabetes mellitus Other No family history of adverse response to anesthesia Social History Preferred Language: Tuvaluan Communication Ability: Effective Supervisor [place] Department Required: No Beliefs That Will Affect Care: None Current Living Situation: Spouse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 That Helps Us Care for You: No Feels Safe at Home: Yes Safety Concerns: Feels Safe At This Time Smoking Status: Former smoker Do You Dip or Chew Tobacco: No Second Hand Exposure: Yes ( smoked) Hx Alcohol Use: Yes Alcohol type: wine Hx Substance Use: No Review of Systems Review of Systems: The patient denies chest pain, palpitations, shortness of breath, dyspnea on exertion, cough, lower extremity swelling, sore throat, fevers, chills, sweats, weight change, nausea, vomiting, diarrhea , constipation, abdominal pain, pelvic pain, blood in urine or stool, dysuria, urinary frequency or urgency, loss of consciousness, rash, abnormal bruising or bleeding, imbalance, focal weakness, numbness or tingling in arms or legs, generalized arthralgias or myalgias, back or neck pain, or night sweats. The review of systems is otherwise negative other than for that already noted above, and at least 10 systems have been reviewed. Physical Exam Physical Exam: The patient is awake, alert and oriented 3, well developed and well nourished, normocephalic and atraumatic, lying in bed and in no acute distress. HEENT--PERRL, EOMI, mucous membranes and oropharynx dry. Neck--supple. No JVD. No bruits. Thyroid normal, trachea midline, no adenopathy. Heart--normal S1 and S2. No murmurs, rubs or gallops. Lungs--clear bilaterally, no respiratory distress, no accessory muscle use. Abdomen--normal bowel sounds and soft. Nontender. Nondistended, no hernias or masses, no organomegaly. Extremities--no cyanosis or clubbing. No edema. There are good distal pulses b/l. Dermatologic--normal skin turgor, normal color, no abnormal lymph nodes, no rash. Neurologic--cranial nerves II through XII grossly intact. Rheumatologic--normal range of motion. Psychiatric--normal affect. Results & Data Vital Signs (Past 12 Hours) Vital Signs Temp Pulse Pulse Resp BP BP BP 01/16/19 00:55 97 H 01/16/19 00:39 87 125/79 01/15/19 23:35 98.4 F 85 18 151/88 H 01/15/19 22:48 94 H 20 146/100 H 01/15/19 22:19 103 H 22 136/71 01/15/19 22:00 88 21 161/97 H 01/15/19 21:46 122 H 24 01/15/19 21:31 82 20 158/86 H 01/15/19 21:01 84 18 173/89 H 01/15/19 20:46 95 H 20 162/114 H 01/15/19 20:45 102 H 23 01/15/19 20:31 90 23 162/92 H 01/15/19 20:30 93 H 33 H 01/15/19 20:29 86 24 01/15/19 20:15 84 21 166/94 H 01/15/19 19:52 01/15/19 19:51 165/91 H 01/15/19 19:47 98.2 F 103 H 28 H Pulse Ox 01/16/19 00:55 01/16/19 00:39 01/15/19 23:35 95 01/15/19 22:48 01/15/19 22:19 01/15/19 22:00 01/15/19 21:46 01/15/19 21:31 01/15/19 21:01 97 01/15/19 20:46 01/15/19 20:45 01/15/19 20:31 92 01/15/19 20:30 95 01/15/19 20:29 85 L 01/15/19 20:15 01/15/19 19:52 100 01/15/19 19:51 01/15/19 19:47 100 Laboratory Results Laboratory Results WBC 7.91 K/uL (4.8-10.8) 01/15/19 19:59 RBC 4.73 M/uL (4.7-6.1) 01/15/19 19:59 Hgb 12.6 g/dL (14.0-18.0) L 01/15/19 19:59 POC Hgb 12.9 g/dl (14.0-18.0) L 01/15/19 19:58 Hct 38.1 % (42-52) L 01/15/19 19:59 POC Hct 38 % (42-52) L 01/15/19 19:58 MCV 80.5 fL (80-100) 01/15/19 19:59 MCH 26.6 pg (25-34) 01/15/19 19:59 MCHC 33.1 g/dL (32-36) 01/15/19 19:59 RDW Std Deviation 41.3 fL (36.4-46.3) 01/15/19:59 RDW Coeff of Parisa 14.1 % (11.5-14.5) 01/15/19:59 Plt Count 204 K/uL (130-400) 01/15/19 19: MPV 8.9 fL (7.4-10.4) 01/15/19 19:59 Immature Gran % (Auto) 0.3 % 01/15/19 19:59 Neut % (Auto) 75.8 % 01/15/19 19:59 Lymph % (Auto) 13.3 % 01/15/19 19:59 Hardy % (Auto) 9.2 % 01/15/19 19:59 Eos % (Auto) 0.8 % 01/15/19 19:59 Baso % (Auto) 0.6 % 01/15/19 19:59 Immature Gran # (Auto) 0.02 K/uL (0.00-0.02) 01/15/19:59 Neut # (Auto) 6.00 K/uL (1.4-6.5) 01/15/19 19:59 Lymph # (Auto) 1.05 K/uL (1.2-3.4) L 01/15/19 19:59 Hardy # (Auto) 0.73 K/uL (0.11-0.59) H 01/15/19 19:59 Eos # (Auto) 0.06 K/uL (0-0.5) 01/15/19 19:59 Baso # (Auto) 0.05 K/uL (0-0.2) 01/15/19 19:59 PT 10.5 Seconds (9.0-12.0) 01/15/19 19:59 INR 1.0 (0.9-1.1) 01/15/19 19:59 APTT 24.2 Seconds (21.0-31.0) 01/15/19 19:59 PTT Ratio 0.9 01/15/19 19:59 VBG pH 7.50 (7.36-7.41) H 01/15/19 19:54 VBG pCO2 28 mmHg (38-50) L 01/15/19 19:54 VBG pO2 25 mmHg 01/15/19 19:54 VBG HCO3 21 mmol/L 01/15/19 19:54 VBG O2 Saturation < 60.0 % 01/15/19 19:54 VBG Base Excess -0.6 mEq/L 01/15/19 19:54 Barometric Pressure 727.0 mm/Hg 01/15/19 19:54 POC Sodium 138 mEq/L (135-144) 01/15/19 19:58 Sodium 140 mmol/L (136-145) 01/15/19 19:59 POC Potassium 4.4 mEq/L (3.3-5.0) 01/15/19 19:58 Potassium 4.3 mmol/L (3.5-5.1) 01/15/19 19:59 POC Chloride 104 mEq/L (101-112) 01/15/19 19:58 Chloride 105 mmol/L (98-107) 01/15/19 19:59 Carbon Dioxide 24 mmol/L (21-32) 01/15/19 19:59 POC Total CO2 21 mEq/l (24-31) L 01/15/19 19:58 11.0 (3-11) 01/15/19 19:59 POC Anion Gap 19.0 mmol/L (16-25) 01/15/19 19:58 POC BUN 18 mg/dl (7-18) 01/15/19 19:58 BUN 19 mg/dl (7-18) H 01/15/19 19:59 1.55 mg/dl (0.6-1.4) H 01/15/19 19:59 POC Creatinine 1.4 mg/dl (0.6-1.3) H 01/15/19 19:58 Est Cr Clr Drug Dosing 40.7 ml/min 01/15/19 19:59 Est GFR ( Amer) 47.9 01/15/19 19:59 Est GFR (Non-Af Amer) 41.4 01/15/19 19:59 12.1 (10-20) 01/15/19 19:59 Glucose 144 mg/dl (70-99) H 01/15/19 19:59 POC Glucose 145 (70-99) H 01/15/19 19:51 POC Glucose (other) 148 mg/dl (70-99) H 01/15/19 19:58 2.3 mmol/L (0.4-2.0) H* 01/15/19 19:54 Calcium 9.3 mg/dl (8.5-10.1) 01/15/19 19:59 POC Ioniz Calcium Rochelle 1.14 mmol/l (1.12-1.32) 01/15/19 19:58 Phosphorus 2.1 mg/dl (2.5-4.9) L 01/15/19 20:51 Magnesium 2.0 mg/dl (1.8-2.4) 01/15/19 19:59 1.0 mg/dl (0.2-1) 01/15/19 19:59 AST 14 U/L (15-37) L 01/15/19 19:59 ALT 17 U/L (12-78) 01/15/19 19:59 72 U/L (45-117) 01/15/19 19:59 POC Troponin I < 0.03 ng/ml (0-0.045) 01/15/19 19:57 < 0.015 ng/ml (0-0.045) 01/15/19 19:59 7.2 gm/dl (6.4-8.2) 01/15/19 19:59 3.9 gm/dl (3.4-5.0) 01/15/19 19:59 3.3 gm/dl (2.5-4.0) 01/15/19 19:59 1.2 (0.9-2) 01/15/19 19:59 TSH 4.990 uIu/ml (0.300-4.500) H 01/15/19 20:51 Free T4 0.95 ng/dl (0.8-1.6) 01/15/19 20:51 Yellow 01/15/19 20:50 Clear (Clear) 01/15/19 20:50 8.0 (4.5-7.5) H 01/15/19 20:50 Ur Specific Bowie 1.023 (1.000-1.030) 01/15/19 20:50 Negative (Negative) 01/15/19 20:50 Negative (Negative) 01/15/19 20:50 1+ (Negative) H 01/15/19 20:50 Negative (Negative) 01/15/19 20:50 Negative (Negative) 01/15/19 20:50 Negative (Negative) 01/15/19 20:50 Negative (Negative) 01/15/19 20:50 Ur Leukocyte Esterase Negative (Negative) 01/15/19 20:50 Blood Type A Positive 01/15/19 19:59 Antibody Screen NEGATIVE 01/15/19 19:59 Diagnostic Findings [place], [place] [phone] CT Scan Report Patient: YOEL RAMACHANDRAN Date: 01/15/19 MR#: [id number]: [address] [facility] Acct ID:[id number]: Date: 1935[facility] Zip: [place] [address] Age: 83Location: ED Sex: M Room/Bed: Att Phy: Diagnosis: CONFUSION, CVA SX Mackenzie Phy: Meli Vergara CRNPService Date: 01/15/19 Fam Phy: Interpreting Phy: Behzad Bradley MD Admit Phy: Ordering Phy: Ac Espinoza M.D. cc: ~ UNENHANCED CT OF THE BRAIN; CT ANGIOGRAM OF THE BRAIN; CT ANGIOGRAM OF THE NECK CLINICAL HISTORY: Headache. Dysarthria. Aphasia. COMPARISON STUDY: CT of the brain, CT angiogram of the brain, and CT angiogram of the neck dated 02/27/2018. TECHNIQUE: Unenhanced axial CT scan of the brain is performed. Subsequently, following the IV administration of 115 of Optiray 320, CT angiogram of the head and neck was performed from the aortic arch to the vertex. Images are reviewed in the axial, sagittal, and coronal planes. 3-D MIPS images are created and assessed. IV contrast was administered without complication. All measurements were calculated based on NASCET criteria. A dose lowering technique was utilized adhering to the principles of ALARA. CT DOSE: 1290.61 mGy.cm FINDINGS: Brain parenchyma: There is age-related involutional change noting minimal subcortical and periventricular microangiopathic disease. There is no hemorrhage, mass effect, or evidence of acute territorial ischemia by CT criteria. There is no evidence of enhancing mass lesion on the angiogram phase images. The ventricles, sulci, and cisterns are prominent secondary to involutional change. Arredondo-white matter differentiation is preserved. No extra- axial fluid collection is seen. Thoracic aorta: Visualized portions of the thoracic aorta are normal in caliber. The aortic arch demonstrates standard 3-vessel anatomy. Right carotid arterial system: The right common carotid artery is widely patent, as are the right internal and external carotid arteries. A small focal dissection is again questioned the proximal right internal carotid artery on image #[id number]. Left carotid arterial system: The left common carotid artery is widely patent, as are the left internal and external carotid arteries. Vertebral arteries: The vertebral arteries are widely patent bilaterally and codominant in the neck. Subclavian arteries: Widely patent bilaterally. Intracranial vasculature: There is atherosclerotic calcification of the cavernous carotid and vertebral arteries. The internal carotid arteries are patent at the skull base, as are the anterior and middle cerebral arteries bilaterally. The vertebrobasilar system and posterior cerebral arteries are widely patent. The left vertebral artery is dominant. There is no aneurysm, high-grade stenosis, or focal vessel cut off seen throughout the intracranial circulation. Jugular veins: Widely patent bilaterally. Dural sinuses: Patent. Lung apices: Partially visualized upper lobe lung parenchyma appears clear. Soft tissues: The visualized pharyngeal soft tissues are normal in appearance noting angiographic phase technique. The oropharyngeal airway appears widely patent. The salivary and thyroid glands are normal in appearance. No cervical lymphadenopathy is seen. Skeletal structures: The skeletal structures are osteopenic. The calvarium appears intact. The cervical spine is maintained noting multilevel spondylosis. Orbits: The bony orbits are intact. There are bilateral ocular lens implants. Sinuses and mastoids: The paranasal sinuses are clear. There is a small right mastoid effusion. The left mastoid air cells are well pneumatized. IMPRESSION: 1. There is no hemorrhage, mass effect, or evidence of acute territorial ischemia by CT criteria. 2. Unremarkable CT angiogram of the brain. 3. 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 This is unchanged from 02/27/2018. 4. Otherwise unremarkable CT angiogram of the neck. Electronically signed by: Behzad Bradley M.D. 01/15/2019 8:22 PM Dictated: 01/15/192007 Transcribed: 01/15/192016 [facility], [place] [phone] XRay Report Patient: YOEL RAMACHANDRAN Date: 01/15/19 MR#: [id number]: [address] [facility] Acct ID:[id number]: Date: 1935City [facility] [address] Age: 83Location: ED Sex: M Room/Bed: Att Phy: Diagnosis: CONFUSION, CVA SX [place]enzie Phy: Meli Vergara CRNPService Date: 01/15/19 Fam Phy: Interpreting Phy: Behzad Bradley MD Admit Phy: Ordering Phy: Ac Espinoza M.D. cc: ~ SINGLE VIEW CHEST CLINICAL HISTORY: Change in mental status. FINDINGS: An AP, portable, upright chest radiograph is compared to study dated 02/27/2018. The examination is degraded by portable technique and patient rot ation. The heart is enlarged and there is atherosclerotic calcification of the thoracic aorta. The pulmonary vasculature is noncongested. Chronic interstitial thickening is similar to previous. No airspace consolidation or large pleural effusion is identified. No pneumothorax is seen. The skeletal structures are osteopenic. The bony thorax is grossly intact. IMPRESSION: Cardiomegaly with no acute cardiopulmonary abnormality. Electronically signed by: Behzad Bradley M.D. 01/15/2019 8:54 PM Dictated: 01/15/192052 Transcribed: 01/15/192052 Code Status & VTE Plan Code Status Full code VTE Prophylaxis Plan VTE Prophylaxis will be ordered: Yes
[2019-01-16 06:21] LABS: Basophils # (auto) 0.02 K/uL (0-0.2); Basophils % (auto) 0.3 %; Eosinophils # (auto) 0.01 K/uL (0-0.5); Eosinophils % (auto) 0.2 %; Hematocrit (blood only) 33.5 % (42-52); Hemoglobin 11.1 g/dL (14.0-18.0); Immature Granulocytes # (auto) 0.01 K/uL (0.00-0.02); Immature Granulocytes % (auto) 0.2 %; Lymphocytes # (auto) 1.22 K/uL (1.2-3.4); Lymphocytes % (auto) 19.1 %; Mean Corpuscular Hgb Conc 33.1 g/dL (32-36); Mean Corpuscular Volume 80.3 fL (80-100); Mean Platelet Volume 8.7 fL (7.4-10.4); Monocytes # (auto) 0.71 K/uL (0.11-0.59); Monocytes % (auto) 11.1 %; Neutrophils # (auto) 4.42 K/uL (1.4-6.5); Neutrophils % (auto) 69.1 %; Platelet Count 179 K/uL (130-400); RDW Coefficient of Variation 14.5 % (11.5-14.5); RDW Standard Deviation 42.4 fL (36.4-46.3); Red Blood Count 4.17 M/uL (4.7-6.1); White Blood Count 6.39 K/uL (4.8-10.8)
[2019-01-16 06:37] LABS: INR 1.1 (0.9-1.1); Partial Thromboplastin Ratio 1.3; Partial Thromboplastin Time 34.4 Seconds (21.0-31.0); Prothrombin Time 11.1 Seconds (9.0-12.0)
[2019-01-16 06:42] LABS: Estimated Average Glucose 169 mg/dl; Hemoglobin A1C 7.5 % (4.5-5.6)
[2019-01-16 06:56] LABS: Albumin Level 3.6 gm/dl (3.4-5.0); BUN Creatinine Ratio 12.3 (10-20); Calcium 8.1 mg/dl (8.5-10.1); Creatinine Clr Calc Pharmacy 43.7 ml/min; Est GFR (African American) 55.7; Potassium 3.8 mmol/L (3.5-5.1)
[2019-01-16 06:59] LABS: Albumin Globulin Ratio 1.4 (0.9-2); Bilirubin,Total 0.9 mg/dl (0.2-1); Globulin 2.5 gm/dl (2.5-4.0); Total Protein 6.1 gm/dl (6.4-8.2)
[2019-01-16] MEDS ORDERED: HEPARIN IV BOLUS 4,500 UNITS in SYRINGE 0 ML IV ONE (07:00)
--- NOTE | 2019-01-16 07:21 | Magnetic Resonance Report ---
MR brain wo con HISTORY: 83 years-old Male TIA acutely altered mental status with confusion COMPARISON: MRI the brain 02/28/2018 TECHNIQUE: Multiplanar multisequence MRI of the brain was obtained without the use of IV contrast. FINDINGS: Manufacturing Machine Operator localizer images demonstrate no gross extracranial abnormality. There is no restricted diffusio n to suggest acute or subacute infarction. Mildly motion degraded exam. Midline structures including the corpus callosum, brainstem, optic chiasm, pineal and pituitary glands appear unremarkable on the sagittal T1 series. No cerebellar tonsillar herniation. Degenerative changes noted about the imaged c ervical spine. Age-related involutional changes. Mild to moderate T2/FLAIR hyperintensities about the subcortical an d periventricular white matter are suggestive of chronic microvascular ischemic disease. No acute int racranial hemorrhage, midline shift, abnormal extra-axial collections, hydrocephalus or intracranial mass. Major flow voids at the level the skull base appear patent. Trace right mastoid effusion. Left mastoid air cells are clear. Mild mucosal thickening of the ethmoid air cells. Hypoplasia of the fron nima sinuses. Skull, soft tissues and orbits are unremarkable. Prior bilateral cataract repair. IMPRESSION: 1. No acute intracranial abnormality. 2. Age-related involutional changes with chronic microvascular ischemic disease. 3. Trace right mastoid effusion. The above report was generated using voice recognition software. It may contain grammatical, syntax o r spelling errors. Electronically signed by: Mayco Rodriguez M.D. 01/16/2019 7:19 AM
[2019-01-16] MEDS: INSULIN ASPART 100 UNITS/ML 3 ML PEN SC SCH ×2 (07:33→12:01)
--- NOTE | 2019-01-16 09:00 | Neurology Consultation ---
Date of Consultation January 16, 2019 Assessment & Plan (1) Aphasia: Patient had an episode of expressive aphasia accompanied by some blurry vision without headache. This was associated with the discontinuation of Xarelto 3 days prior to admission. Clinically he is back to baseline and has no focal neurologic deficits, speech problems, meningeal signs, or encephalopathy. Certainly I cannot exclude a TIA, but there was no evidence of acute CVA on MRI. Overall, I suspect this is vasospasm/migraine phenomenon explaining his symptoms. I do not have a good explanation as to the timing as Xarelto should not affect the frequency or severity of migraines. There is no evidence to suggest new thromboembolic cerebral vascular disease. The episode prior to admission is very similar to the episode in February of 2018 under similar circumstances. There was concern in February of 2018 of a right carotid dissection. There is no evidence of carotid dissection currently and the change seen on CT angiography is identical to that seen in February of 2018 is likely artifact versus some irregularity of the lumen. (2) Classic migraine: Patient has a history of classic migraine headaches. These have resolved but he still gets vasospastic events. I note that he has had mild vasospasm/aura daily for the last 3 days prior to admission. I am uncertain how this connects to the discontinuation of Xarelto, however. (3) Atrial fibrillation: Patient has chronic atrial fibrillation/flutter. He needs to be anticoagulated and this will be restarted when able. Heparin will be used a bridge. (4) Hypertension: Patient has a history of hypertension. It was somewhat elevated on admission but has spontaneously come down. Hypertension could trigger vasospasm and migraine as well. Recommendations: 1. Control blood pressure as you are doing. 2. Continue heparin bridge and obtain colonoscopy. Then he can go back on Xarelto. 3. Control glucose. 4. This patient given his age and condition, as well as very low total cholesterol, is not a high-dose statin candidate. Cholesterol can be managed with diet and exercise. 5. Increase activity as able. 6. Note elevated TSH. Consider levothyroxine. 7. I see no need for additional neurologic testing or treatment at this time. Please contact me if I can be of further assistance on this case. Overall, I spent a total of 85 minutes with this case, including review of records, review of MRI films, direct evaluation the patient at bedside, and discussion of the case with the patient at bedside as well as Dr. Patel and Dr. Juan blanchard including differential diagnosis and treatment options. History of Present Illness Reason for Consultation: Patient is a 83-year-old was asked to see the request of Dr. Mcqueen, for neurologic consultation regarding TIA versus other Requesting Physician: Dr. Mcqueen Attending Physician: Analilia Martinez MD History of Present Illness Patient has a longstanding history of atrial fibrillation, hypertension, dyslipidemia, and type 2 diabetes for 10 or more years. He has a longstanding history of migraine headaches starting in his 20s becoming severe in his 30s and 40s and fading away in his 50s. He would have a classic aura followed by migraine. In recent years, he would have episodes of blurry vision, numbness of his right arm, and speech problems (difficulty getting words out) lasting up to 2 hours and then resolving. He typically would have very minimal or no headache with these spells. In February of 2018 he discontinued Xarelto (for an upcoming colonoscopy procedure) and 2-3 days later had an episode of blurry vision and difficulty getting words out/garbled speech for 24-36 hours. He had a minimal headache with this at charly es. He could understand well but could not get the words out correctly. At that time, an MRI of the brain showed no acute CVA. He was seen by Dr. Castro consultation and was felt that he had had a migraine headache. Interestingly, CT angiography showed a possible right carotid dissection. He was put on aspirin and back on Xarelto. Clinically he has symptoms resolved and he was back to baseline. In July of 2018, he saw a vascular surgeon who did follow-up studies and felt that there was no dissection. Aspirin was discontinued. Patient did very well up until recently. Three days ago he discontinued Xarelto for an upcoming colonoscopy procedure. For 3 days in a row he noticed episodes of blurry vision left greater than right side possibly some word-finding difficulties. He would go in lay down and within 15 minutes this would resolve. He had minimal to no headache with these events (before, during, or after). Sometime in the afternoon of January 15, working on his computer, he became confused. He was not understanding what he was doing on the computer and he noticed this. He felt the beginning of this was around 230 in the afternoon. According to his chart, his wondered if the onset was around 330 and his son around 530. He was having blurry vision off to the left. He lay down in his eyes improved but his speech problem was noted any could not get words out. He knew what he wanted to say and thought he was speaking correctly but apparently was garbled and not same correct words. He had no headache or pain. He had no numbness or tingling of the limbs, and no incontinence. He arrived at the emergency room at 1947 hours with a temperature 36.8, pulse 103, respiratory rate 28, blood pressure 165/91, and O2 saturation 100 percent. He was described as having no focal neurologic deficits but he could not get words out and was felt to be aphasic. CT scan of the head was unremarkable with no acute changes. CT angiography of the head was unremarkable. CT angiography of the neck showed the same lesion in the right carotid as in February of 2018 but was unchanged. This is likely artifact versus a small intimal irregularity which is stable. CBC showed mild anemia. Chem profile initially showed some mild dehydration this was normal with subsequent labs this morning. Urinalysis was unremarkable. TSH was elevated at 4.99 Total cholesterol was 91, triglycerides 105 MRI of the brain showed no acute stroke. There was mild diffuse old small vessel ischemia and generalized atrophy similar to the previous study of February 2018. I reviewed these films. This morning, the patient is at baseline with no speech or vision problems, no headache, confusion, weakness, or numbness. Allergies Allergy/AdvReac Type Severity Reaction Status Date / Time hydromorphone Allergy Intermediate HALLUCINATI Verified 01/15/19 20:14 ONS lorazepam Allergy Intermediate HALLUCINATI Verified 01/15/19 20:14 ONS tetanus toxoid, adsorbed Allergy Intermediate BLISTERS Verified 01/15/19 20:14 AND EYES SWELLING Home Medications Home Medications Medication Instructions Recorded Confirmed Type diltiazem HCl 120 mg PO QPM 12/29/18 01/15/19 History glipizide 5 mg PO QAM 12/29/18 01/15/19 History metformin 500 mg PO QDD 12/29/18 01/15/19 History metoprolol succinate 100 mg PO QAM 12/29/18 01/15/19 History pantoprazole 40 mg PO QAM 12/29/18 01/15/19 History rivaroxaban [Xarelto] 20 mg PO QAM 12/29/18 01/15/19 History simvastatin 40 mg PO PM 12/29/18 01/15/19 History Patient History Medical History Atrial fibrillation follows with Dr. Patel Basal cell carcinoma (BCC) of face Basal cell carcinoma, arm Diabetes mellitus, type 2 Hiatal hernia History of anesthesia reaction had hallucination when having tonsils removed History of colon cancer 1978 History of yellow fever Hyperlipidemia Hypertension Migraine On anticoagulant therapy xarelto daily Osteoarthritis Squamous cell carcinoma skin of arm Surgical History History of bowel resection for colon cancer History of cardioversion x2 History of colonoscopy History of colostomy History of esophagogastroduodenoscopy (EGD) History of phacoemulsification of cataract of both eyes with intraocular lens implantation History of root canal procedure History of tonsillectomy and adenoidectomy History of total right hip replacement History of wisdom tooth extraction Hx of abdominal surgery bowel obstruction Hx of vasectomy Status post Mohs surgery for basal cell carcinoma Family History Father , age 91 Family history of diabetes mellitus Hypertension Mother , age 64 metastatic breast cancer Breast cancer Other No family history of adverse response to anesthesia Social History Preferred Language: Liberian Communication Ability: Effective Employee Relations Manager Required: No Beliefs That Will Affect Care: None Current Living Situation: Spouse current occupational 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, [employer]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 That Helps Us Care for You: No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 Feels Safe at Home: Yes Safety Concerns: Feels Safe At This Time Smoking Status: Former smoker Do You Dip or Chew Tobacco: No Second Hand Exposure: Yes ( smoked) Hx Alcohol Use: Yes Alcohol type: wine Hx Substance Use: No Review of Systems Constitutional: no fever, no fatigue and no weakness Eyes: no diplopia, no eye pain, no loss of peripheral vision and no worsening vision Ear, Nose, Mouth, Throat: no ear pain, no tinnitus, no hearing loss and no dysphagia Respiratory: no cough and no dyspnea Cardiovascular: no chest pain, no dyspnea and no palpitations Gastrointestinal: no abdominal pain, no nausea and no vomiting Genitourinary: no dysuria, no urinary frequency and no urinary incontinence Musculoskeletal: no back pain, no neck pain, no radicular pain, no myalgia, no muscle weakness and no muscle atrophy Integumentary: no rash and no lesions Neurologic: no gait abnormality, no falls, no localized weakness, no generalized weakness, no tingling, no numbness, no tremor(s), no abnormal movements, no dizziness, no headache(s), no abnormal speech, no behavioral changes, no confusion and no memory loss Psychiatric: no depression, no abnormal sleep pattern, no anxiety, no difficulty concentrating, no confusion and no hallucinations Endocrine: no fatigue and no flushing Hematologic / Lymphatic: no easy bleeding and no easy bruising Allergy / Immunological: no urticaria Physical Exam Physical Exam: The patient is right-handed. The patient is awake, alert, and attentive. Speech is normal without any aphasia or dysarthria. Mentation and thought processes are intact, with full orientation and normal fund of knowledge. Attention and concentration are normal. Mood and affect are normal and appropriate. General appearance and grooming are normal. Short and long-term memory are intact. The discs are sharp with positive venous pulsations bilaterally. There are no exudates, hemorrhages, or blood vessel changes seen. Pupils are 3 mm bilaterally and reactive to light. Extraocular eye muscles are intact without nystagmus. Visual acuity and visual ness seem normal grossly to confrontation. There are no deficits to sensation in the face in all 3 distributions of the fifth cranial nerve bilaterally. Corneal reflexes are positive bilaterally. Facial strength and symmetry was normal bilaterally. Hearing seems intact grossly to voice and finger rub bilaterally. Palate moves well without asymmetry. There is normal sternocleidomastoid and trapezius (shoulder shrug) strength bilaterally. Tongue is midline with good strength bilaterally. Neck has a full range of motion without discomfort. There are no cervical bruits bilaterally. There are no cranial or ocular bruits. Heart is without murmur. There is a regular rhythm and rate. Cervical, thoracic, and lumbar spine are nontender to palpation. Gait is was not tested but stance sitting up in bed is normal With outstretched arms there is no drift. There are no resting, postural, or action tremors. There is no ataxia with finger to nose testing. There is good facility in the hands. No other abnormal involuntary movements are noted. Motor strength is 5/5 diffusely in the arms bilaterally including deltoids, biceps, triceps, brachioradialis, wrist flexors and extensors, environmental officer, and intrinsic hand muscles. Motor strength is 5/5 diffusely in the legs bilaterally including hip flexors, quadriceps, hamstrings, gastrocnemius, tibialis anterior, tibialis posterior, and Peroneii muscles bilaterally. Toe extensors are normal and there is good bulk in the extensor digitorum brevis muscles bilaterally. The limbs have good tone without rigidity or spasticity. There is no atrophy noted in the muscles. Muscle bulk is normal, there is no tenderness to palpation, no myotonia to percussion, and no fasciculations seen. Sensory examination is intact to touch and pin throughout all 4 limbs diffusely. Vibratory and position sense testing is normal bilaterally as well. There is normal sensation to temperature. Reflexes are 1/4 in the biceps, triceps, brachioradialis, quadriceps, and Achilles tendons bilaterally. Toes are downgoing with plantar stimulation bilaterally. Peripheral pulses are present and of normal quality distally in all 4 limbs. There is no peripheral edema noted in the limbs. Results & Data Vital Signs (Past 12 Hours) Vital Signs Temp Pulse Pulse Resp BP BP BP 01/16/19 07:34 79 118/73 01/16/19 07:14 36.6 C 79 18 118/73 01/16/19 05:02 37.4 C 87 22 135/74 01/16/19 00:55 97 H 01/16/19 00:39 87 125/79 01/15/19 23:35 36.9 C 85 18 151/88 H 01/15/19 22:48 94 H 20 146/100 H 01/15/19 22:19 103 H 22 136/71 01/15/19 22:00 88 21 161/97 H 01/15/19 21:46 122 H 24 01/15/19 21:31 82 20 158/86 H 01/15/19 21:01 84 18 173/89 H Pulse Ox 01/16/19 07:34 01/16/19 07:14 01/16/19 05:02 97 01/16/19 00:55 01/16/19 00:39 01/15/19 23:35 95 01/15/19 22:48 01/15/19 22:19 01/15/19 22:00 01/15/19 21:46 01/15/19 21:31 01/15/19 21:01 97 Diagnostic Findings MR brain wo con HISTORY: 83 years-old Male TIA acutely altered mental status with confusion COMPARISON: MRI the brain 02/28/2018 TECHNIQUE: Multiplanar multisequence MRI of the brain was obtained without the use of IV contrast. FINDINGS: Medical Records Coder localizer images demonstrate no gross extracranial abnormality. There is no restricted diffusion to suggest acute or subacute infarction. Mildly motion degraded exam. Midline structures including the corpus callosum, brainstem, optic chiasm, pineal and pituitary glands appear unremarkable on the sagittal T1 series. No cerebellar tonsillar herniation. Degenerative changes noted about the imaged cervical spine. Age-related involutional changes. Mild to moderate T2/FLAIR hyperintensities about the subcortical and periventricular white matter are suggestive of chronic microvascular ischemic disease. No acute intracranial hemorrhage, midline shift, abnormal extra-axial collections, hydrocephalus or intracranial mass. Major flow voids at the level the skull base appear patent. Trace right mastoid effusion. Left mastoid air cells are clear. Mild mucosal thickening of the ethmoid air cells. Hypoplasia of the frontal sinuses. Skull, soft tissues and orbits are unremarkable. Prior bilateral cataract repair. IMPRESSION: 1. No acute intracranial abnormality. 2. Age-related involutional changes with chronic microvascular ischemic disease. 3. Trace right mastoid effusion. The above report was generated using voice recognition software. It may contain grammatical, syntax or spelling errors. Electronically signed by: Mayco Rodriguez M.D. 01/16/2019 7:19 AM
--- NOTE | 2019-01-16 10:12 | Gastrointestinal Consultation ---
Date of Consultation January 16, 2019 Assessment & Plan (1) Aphasia: (2) Colon cancer: Patient is a pleasant 83 year-old male with a remote history of colon cancer as well as colon polyps admitted with TIA symptoms while off Xarelto in preparation of colonoscopy. Dr. Power and Dr. Martinez discussed this patient. I also discussed with the patient and son the risks vs benefits of colonoscopy. All parties are in agreement with not performing and invasive GI evaluation given the potential neurologic concerns. Will consider a CT a/p with PO and IV contrast for surveillance. The timing of this testing to be determined. We will follow the patient's clinical course and make further recommendations as appropriate. Supervising Physician Co-Signing Physician Notes Agree with MELONIE Walters as above Abd: Soft, NT CT Scan reviewed, and looks unremarkable. Patient is in agreement with not proceeding with colonoscopy. The risk of being off anticoagulation outweighs the benefit of proceeding with colonoscopy. He is to contact our office if he develops any symptoms, as he is currently asymptomatic from a GI standpoint. History of Present Illness Reason for Consultation: TIA symptoms prior to colonoscopy Requesting Physician: Dr. Martinez Attending Physician: Analilia Martinez MD History of Present Illness Patient is a pleasant 83 year-old male with a history of rectal cancer diagnosed in 1978 as well as colon polyps and GERD admitted with symptoms of aphasia and confusion which prompted ER evaluation. Patient was scheduled for a surveillance colonoscopy today and had been off Xarelto for two days prior to the onset of his neurologic symptoms. Patient has had complete resolution of symptoms at this point. Dr. Zarate of neurology and has considered TIA vs vasospasm or migraine as an explanation to his acute mental status changes. Brain MRI excluded any true CVA. The role of the patient's held Xarelto is unclear. He did not consume a bowel preparation last evening. Tolerating a regular diet now. Denies any chest pain, palpitations, shortness of breath, JIMENEZ, abdominal pain, melena or hematochezia. Patient reports a normal stool from his colostomy this morning. Allergies Allergy/AdvReac Type Severity Reaction Status Date / Time hydromorphone Allergy Intermediate HALLUCINATI Verified 01/15/19 20:14 ONS lorazepam Allergy Intermediate HALLUCINATI Verified 01/15/19 20:14 ONS tetanus toxoid, adsorbed Allergy Intermediate BLISTERS Verified 01/15/19 20:14 AND EYES SWELLING Home Medications Home Medications Medication Instructions Recorded Confirmed Type diltiazem HCl 120 mg PO QPM 12/29/18 01/15/19 History glipizide 5 mg PO QAM 12/29/18 01/15/19 History metoprolol succinate 100 mg PO QAM 12/29/18 01/15/19 History pantoprazole 40 mg PO QAM 12/29/18 01/15/19 History rivaroxaban [Xarelto] 20 mg PO QAM 12/29/18 01/15/19 History simvastatin 40 mg PO PM 12/29/18 01/15/19 History metformin 500 mg PO QDD #0 tab 01/16/19 01/15/19 Rx Patient History Medical History Atrial fibrillation follows with Dr. Patel Basal cell carcinoma (BCC) of face Basal cell carcinoma, arm Diabetes mellitus, type 2 Hiatal hernia History of anesthesia reaction had hallucination when having tonsils removed History of colon cancer 1979 History of yellow fever Hyperlipidemia Hypertension Migraine On anticoagulant therapy xarelto daily Osteoarthritis Squamous cell carcinoma skin of arm Surgical History History of bowel resection for colon cancer History of cardioversion x2 History of colonoscopy History of colostomy History of esophagogastroduodenoscopy (EGD) History of phacoemulsification of cataract of both eyes with intraocular lens implantation History of root canal procedure History of tonsillectomy and adenoidectomy History of total right hip replacement History of wisdom tooth extraction Hx of abdominal surgery bowel obstruction Hx of vasectomy Status post Mohs surgery for basal cell carcinoma Family History Father , age 91 Family history of diabetes mellitus Hypertension Mother , age 64 metastatic breast cancer Breast cancer Other No family history of adverse response to anesthesia Social History Preferred Language: Occitan Communication Ability: Effective Beliefs That Will Affect Care: None Current Living Situation: Spouse current occupational 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[employer], [employer]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 Feels Safe at Home: Yes Smoking Status: Former smoker Second Hand Exposure: Yes ( smoked) Hx Alcohol Use: Yes Alcohol type: wine Hx Substance Use: No Review of Systems Review of Systems: All systems reviewed & are unremarkable except as noted in HPI & below Physical Exam Constitutional: WD/WN, vitals as above Eyes: EOM intact bilaterally Neck: normal appearance Respiratory: normal respiratory effort, lungs clear to auscultation Cardiovascular: Rate/Rhythm: regular rate and regular rhythm Gastrointestinal (Abdomen): Inspection/Auscultation: normal bowel sounds Percussion/Palpation: abdomen soft; abdomen nontender colostomy LLQ Musculoskeletal: Gait: normal gait Skin: no rashes, warm and dry Neurologic: speech normal Psychiatric: A+Ox3, euthymic affect Results & Data Vital Signs (Past 12 Hours) Vital Signs Temp Pulse Pulse Resp BP BP BP 01/16/19 07:34 79 118/73 01/16/19 07:14 36.6 C 79 18 118/73 01/16/19 05:02 37.4 C 87 22 135/74 01/16/19 00:55 97 H 01/16/19 00:39 87 125/79 01/15/19 23:35 36.9 C 85 18 151/88 H 01/15/19 22:48 94 H 20 146/100 H 01/15/19 22:19 103 H 22 136/71 Pulse Ox 01/16/19 07:34 01/16/19 07:14 01/16/19 05:02 97 01/16/19 00:55 01/16/19 00:39 01/15/19 23:35 95 01/15/19 22:48 01/15/19 22:19 Laboratory Results Abnormal lab results 01/15/19 01/15/19 01/15/19 Range/Units 19:51 19:54 19:54 RBC (4.7-6.1) M/uL Hgb (14.0-18.0) g/dL POC Hgb (14.0-18.0) g/dl Hct (42-52) % POC Hct (42-52) % Lymph # (Auto) (1.2-3.4) K/uL [place] # (Auto) (0.11-0.59) K/uL APTT (21.0-31.0) Seconds VBG pH 7.50 H (7.36-7.41) VBG pCO2 28 L (38-50) mmHg POC Total CO2 (24-31) mEq/l BUN (7-18) mg/dl Creatinine (0.6-1.4) mg/dl POC Creatinine (0.6-1.3) mg/dl Glucose (70-99) mg/dl POC Glucose 145 H (70-99) POC Glucose (other) (70-99) mg/dl Hemoglobin A1c (4.5-5.6) % Lactate 2.3 H* (0.4-2.0) mmol/L Calcium (8.5-10.1) mg/dl Phosphorus (2.5-4.9) mg/dl AST (15-37) U/L Total Protein (6.4-8.2) gm/dl TSH (0.300-4.500) uIu/ml Urine pH (4.5-7.5) Urine Ketones (Negative) 01/15/19 01/15/19 01/15/19 Range/Units 19:58 19:59 19:59 RBC (4.7-6.1) M/uL Hgb 12.6 L (14.0-18.0) g/dL POC Hgb 12.9 L (14.0-18.0) g/dl Hct 38.1 L (42-52) % POC Hct 38 L (42-52) % Lymph # (Auto) 1.05 L (1.2-3.4) K/uL [place] # (Auto) 0.73 H (0.11-0.59) K/uL APTT (21.0-31.0) Seconds VBG pH (7.36-7.41) VBG pCO2 (38-50) mmHg POC Total CO2 21 L (24-31) mEq/l BUN 19 H (7-18) mg/dl Creatinine 1.55 H (0.6-1.4) mg/dl POC Creatinine 1.4 H (0.6-1.3) mg/dl Glucose 144 H (70-99) mg/dl POC Glucose (70-99) POC Glucose (other) 148 H (70-99) mg/dl Hemoglobin A1c (4.5-5.6) % Lactate (0.4-2.0) mmol/L Calcium (8.5-10.1) mg/dl Phosphorus (2.5-4.9) mg/dl AST 14 L (15-37) U/L Total Protein (6.4-8.2) gm/dl TSH (0.300-4.500) uIu/ml Urine pH (4.5-7.5) Urine Ketones (Negative) 01/15/19 01/15/19 01/16/19 Range/Units 20:50 20:51 05:56 RBC 4.17 L (4.7-6.1) M/uL Hgb 11.1 L (14.0-18.0) g/dL POC Hgb (14.0-18.0) g/dl Hct 33.5 L (42-52) % POC Hct (42-52) % Lymph # (Auto) (1.2-3.4) K/uL [place] # (Auto) 0.71 H (0.11-0.59) K/uL APTT (21.0-31.0) Seconds VBG pH (7.36-7.41) VBG pCO2 (38-50) mmHg POC Total CO2 (24-31) mEq/l BUN (7-18) mg/dl Creatinine (0.6-1.4) mg/dl POC Creatinine (0.6-1.3) mg/dl Glucose (70-99) mg/dl POC Glucose (70-99) POC Glucose (other) (70-99) mg/dl Hemoglobin A1c (4.5-5.6) % Lactate (0.4-2.0) mmol/L Calcium (8.5-10.1) mg/dl Phosphorus 2.1 L (2.5-4.9) mg/dl AST (15-37) U/L Total Protein (6.4-8.2) gm/dl TSH 4.990 H (0.300-4.500) uIu/ml Urine pH 8.0 H (4.5-7.5) Urine Ketones 1+ H (Negative) 01/16/19 01/16/19 01/16/19 Range/Units 05:56 05:56 05:56 RBC (4.7-6.1) M/uL Hgb (14.0-18.0) g/dL POC Hgb (14.0-18.0) g/dl Hct (42-52) % POC Hct (42-52) % Lymph # (Auto) (1.2-3.4) K/uL [place] # (Auto) (0.11-0.59) K/uL APTT 34.4 H (21.0-31.0) Seconds VBG pH (7.36-7.41) VBG pCO2 (38-50) mmHg POC Total CO2 (24-31) mEq/l BUN (7-18) mg/dl Creatinine (0.6-1.4) mg/dl POC Creatinine (0.6-1.3) mg/dl Glucose (70-99) mg/dl POC Glucose (70-99) POC Glucose (other) (70-99) mg/dl Hemoglobin A1c 7.5 H (4.5-5.6) % Lactate (0.4-2.0) mmol/L Calcium 8.1 L (8.5-10.1) mg/dl Phosphorus (2.5-4.9) mg/dl AST 14 L (15-37) U/L Total Protein 6.1 L (6.4-8.2) gm/dl TSH (0.300-4.500) uIu/ml Urine pH (4.5-7.5) Urine Ketones (Negative)
[2019-01-16] MEDS ORDERED: METOPROLOL SUCC 50MG EXT REL TAB PO SCH (11:00)
[2019-01-16] MEDS ORDERED: PANTOprazole 40 MG TAB PO SCH (11:00)
[2019-01-16] MEDS ORDERED: RIVAROXABAN 15 MG TAB PO SCH (11:30)
[2019-01-16] MEDS ORDERED: IOVERSOL 100ml IV PRN (13:28)
--- NOTE | 2019-01-16 14:17 | CT Scan Report ---
CT SCAN OF THE ABDOMEN AND PELVIS WITH IV CONTRAST CLINICAL HISTORY: Colon cancer surveillance. COMPARISON STUDY: Abdominal CT dated 05/19/2017. TECHNIQUE: Following the IV administration of 93 cc of Optiray 320, CT scan of the abdomen and pelvi s is performed from the lung bases to the proximal femora. Images are reviewed in the axial, sagittal , and coronal planes. IV contrast was administered without complication. Oral contrast was utilized. A dose lowering technique was utilized adhering to the principles of ALARA. CT DOSE: 574.08 mGy.cm FINDINGS: Lung bases: The heart is enlarged and without pericardial effusion. The coronary arteries are densely calcified. There is bibasilar scarring/atelectasis. There are trace pleural effusions. No airspace c onsolidation is seen typical for pneumonia. There is a small hiatal hernia. Liver: The contrast-enhanced liver is normal in size, contour, and attenuation. There is no intrahepa tic biliary ductal dilatation. The hepatic veins and portal veins are patent. Gallbladder: Unremarkable. Spleen: Normal in size and attenuation. Pancreas: The pancreas is moderately atrophic and grossly unremarkable. Adrenal glands: Unremarkable. Kidneys: The contrast enhanced kidneys are atrophic and without hydronephrosis. The kidneys enhance s ymmetrically. Renal cysts measure up to 2.9 cm. Additional subcentimeter cortical hypodensities also likely represent cysts but are too small for definitive characterization. Small parapelvic cysts are noted on the left. Abdominal vasculature: There is advanced atherosclerotic calcification and mild ectasia of the abdomi nal aorta. Bowel: There are postoperative changes from rectosigmoid resection with a diverting left lower quadra nt colostomy. There is a small parastomal hernia. No bowel obstruction is seen. Fecal retention is no blanca in the right colon. There is mild to moderate diverticulosis of the right colon without CT eviden ce of acute diverticulitis. Enteric contrast reaches the distal small bowel. The appendix is well-vi sualized and normal. There is a duodenal diverticulum. Peritoneum: There is no intraperitoneal free air or abdominal ascites. A 2.1 cm lobulated simple appe aring cystic structure is again seen in the right retroperitoneal space below the duodenum on image # [id number]. This is unchanged from previous and likely represents a small lymphangioma or inclusion cyst. Lymphadenopathy: None. Pelvic viscera: Evaluation of the pelvis is directed by streak artifact from a right hip arthroplasty . The prostate gland is not identified and presumed surgically absent. The bladder is filled with exc reted IV contrast. The bladder wall is thickened and trabeculated indicating chronic outlet obstructi on. There is a small fat-containing right inguinal hernia. Surgical clips are noted in the presacral region. Skeletal structures: The skeletal structures are osteopenic. There is moderate lumbosacral spondylosi s. No lytic or blastic lesions are seen. A right hip arthroplasty is in place. Arthritic change is no blanca in the left hip. IMPRESSION: 1. There is no evidence of metastatic disease in the abdomen or pelvis. 2. There are postoperative changes from rectosigmoid colon resection with left lower quadrant colosto my. No bowel obstruction is seen. 3. Cardiomegaly and trace pleural effusions. 4. There is mild to moderate diverticulosis of the right colon without CT evidence of acute diverticu litis. 5. 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 6. Additional findings as above. Electronically signed by: Behzad Bradley M.D. 01/16/2019 2:16 PM
--- NOTE | 2019-01-16 16:08 | Discharge Summary ---
Date of Service January 16, 2019 Admission HPI Per Admitting Provider The patient is an 83-year-old male who presents emergency department with confusion and difficulty getting his words out, the began around 330 this afternoon prior to arrival. Patient had stopped his Xarelto for a colonoscopy was to be done tomorrow, and he notes that he had similar symptoms develop last year at this time when he was asked to stop Xarelto for colonoscopy at that time as well. Symptoms last year did completely resolve but he reports that they took several weeks. He did come into the emergency department as a stroke alert, and it was determined that the patient was not a TPA candidate due to time of onset. His son who is with him now, reports that the patient symptoms are significantly improving, but not yet gotten back to baseline. Principal Diagnosis Complex migraine Discharge Exam Constitutional WD/WN, vitals as above Eyes PERRL, conjunctivae normal, anicteric sclerae ENMT external ear and nose normal, oropharynx normal Neck trachea midline, no thyromegaly Respiratory normal respiratory effort, lungs clear to auscultation Cardiovascular Rate/Rhythm: regular rate and + irregularly irregular Gastrointestinal (Abdomen) normal bowel sounds, soft, nontender, no hepatosplenomegaly Musculoskeletal Extremities: extremities normal to inspection; no cyanosis and no clubbing Skin no rashes, warm and dry Neurologic moves all extremities and awake; no focal motor deficits Speech / Cognition: no expressive aphasia Motor/Sensory: no tremor Cranial Nerves: EOM intact bilaterally Psychiatric A+Ox3, euthymic affect Discharge Data Allergies Allergy/AdvReac Type Severity Reaction Status Date / Time hydromorphone Allergy Intermediate HALLUCINATI Verified 01/17/19 12:08 ONS lorazepam Allergy Intermediate HALLUCINATI Verified 01/17/19 12:08 ONS tetanus toxoid, adsorbed Allergy Intermediate BLISTERS Verified 01/17/19 12:08 AND EYES SWELLING Consultations 01/15/19 20:54 ED Decision to Admit Stat 01/16/19 00:11 Consult Case Management - Discharge Planning Routine Consult Case Management - Discharge Planning Routine Consult Neurology Routine 01/16/19 08:31 Consult Cardiology Routine 01/16/19 09:17 Consult Gastroenterology Routine Ordered Studies 01/15/19 19:54 CT angio head w con Stat CT angio neck with con Stat CT head/brain wo con Stat 01/16/19 00:11 MR brain wo con Routine 01/16/19 10:48 CT abd pelvis oral and IV con Routine CXR ECHO Hospital Course (1) Aphasia: Presented with expressive aphasia for a few hours and intermittent visual aura x 3 days Work up for TIA/CVA all negative MRI brain negative, CTA head and neck with 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 So difficult to say if was related He was converted back to his usual dose of Xarelto and the heparin gtt was st opped prior to discharge (2) Classic migraine: as above, long history, now does not get the headache portion -advised routine sleep, meals, etc. for migraine prevention (3) Atrial fibrillation: Permanent Atrial fibrillation -continue diltiazem 120 mg p.o. in the evening, and metoprolol succinate 100 mg p.o. every morning. Patient has been on Xarelto chronically for anticoagulation for stroke prevention. Appreciate Cardiology consultation-does not think he would be likely to have an embolic event with being off Xarelto for this brief of a period of time -stable to continue usual doses of other meds (4) Hypertension: Controlled -continue home meds (5) Diabetes mellitus: Held home meds of metformin 500 mg p.o. daily and glipizide 5 mg p.o. every morning -gave NovoLog coverage per scale while here -can restart home meds with exception of metformin being held for one more day due to dye load (6) Hyperlipidemia: Continue simvastatin 40 mg p.o. in evening. (7) Colon cancer: The patient has been undergoing more rigorous colonoscopies due to his history of colon cancer. Appreciate GI consultation-recommended not doing a colonoscopy given acute medical issue Instead, had CT abd/pel with po/IV contrast and had no evidence of CA-this will suffice for his screenin gpurposes as per GI -f/u with GI routinely as outpt (8) Mitral regurgitation: moderate, seen on ECHO this admission Follow as outpt (9) DVT prophylaxis: heparin gtt, converted back to home Xarelto Dispo-stable for dc to home Total Time Total Time Spent Total Time Spent (In Minutes): >30 min Total Time Includes: Examination of the Patient, Discharge Planning, Medication Reconciliation and Communication With Other Providers (Neurology, GI, Cardiology) Discharge Plan Discharge Items Patient Disposition: Home - Self-Care Reason For Visit: TIA, DYSARTHRIA Discharge Diagnosis: Complex migraine Condition: Good Discharge Goals: Diagnostic testing and Learn about illness Activity: Resume your previous activity Lifting: Gradually increase as tolerated Bathing: No limitations Exercise/Sports: Gradually increase as tolerated Driving/Machine Use: No limitations Non-emergency contact: Primary Care Provider Call non-emergency contact if: you have any medication questions and your symptoms worsen Follow-up/Referrals: Meli Vergara CRNP [Primary Care Provider] - 01/19/19 11:00 am (A follow up appointment has been made for you with MELONIE Pulliam on January 19 at 11:00am.) Diet: Heart Healthy Addtl Provider Instructions: You were admitted for speech issues and had a work up for stroke. Your brain MRI did NOT show a stroke. The Neurologist thinks you had a complex migraine and NOT a stroke. You were restarted on your Xarelto and should continue this. You had a CT scan of the abdomen and pelvis instead of a colonoscopy and this was read as negative for any kind of cancer. Please follow up with your PCP as scheduled for you. Prescriptions: Continued metformin 500 mg Tablet Extended Release 24 Hr 500 mg PO QDD Qty: 0 RF: 0 No Action diltiazem HCl 120 mg tablet extended release 24 hr 120 mg PO QPM Qty: 30 RF: 5 glipizide 5 mg tablet extended release 24hr 5 mg PO QAM Qty: 30 RF: 5 metoprolol succinate 100 mg tablet extended release 24 hr 100 mg PO QAM Qty: 30 RF: 5 pantoprazole 40 mg tablet,delayed release (DR/EC) 40 mg PO QAM Qty: 30 RF: 5 Xarelto 20 mg tablet 20 mg PO QAM Qty: 30 RF: 5 simvastatin 40 mg tablet 40 mg PO PM Qty: 30 RF: 5 Stand-Alone Forms: My [employer]/Other Patient Handouts: Hypertension Control, Diabetes Type 2 Coping, Headaches Migraine and Tension, Migraine Stages Tx, Migraine Headache Triggers Prevent Discharge Orders: Discharge Order (Routine); Ordered 01/16/19 Ordered By: Analilia Martinez Admission Data Admit Date/Time: 01/15/19 22:49 Attending Provider: Analilia Martinez Admit Provider: Jluis Mcqueen Primary Care Provider: Meli Vergara I Other Providers: Addi Patel ; Jacky Power ; Nish Zarate III Service: Telemetry Other Interventions: Discharge Summary Assessment (RN) Last Done: 01/16/19 16:20 Pending Studies at Discharge: No DC Date/Time DO NOT enter until pt leaves facility: 01/16/19 17:13
--- NOTE | 2019-01-16 17:04 | Cardiology Consultation ---
Date of Consultation January 16, 2019 Assessment & Plan (1) Atrial fibrillation: Patient has history of permanent atrial fibrillation for which he has not been symptomatic. Generally speaking he has good rate control on his outpatient regimen to consist of metoprolol and diltiazem. He is on chronic anticoagulation and should remain on chronic anticoagulation. This was interrupted temporarily in order to facilitate a colonoscopy which currently has been deferred. It is unclear whether he suffered an embolic event. The current thinking is that this is less likely to have been an embolic event more likely to be related to migraines. The risk of an embolic event immediately after stopping Xarelto is exceedingly low. He began have symptoms almost immediately after stopping the medication. It seems to be restarted on the Xarelto. For any additional episode which requires interruption of his anticoagulation we could consider bridging or at the very least minimizing the period in which he stops his anticoagulation. This is not likely required to Burger to concerns over embolic phenomena, but I think the patient would be very hesitant to discontinue anticoagulation again given 2 episodes which occurred under similar circumstances History of Present Illness Reason for Consultation: Possible stroke Requesting Physician: Tony Attending Physician: Analilia Martinez MD History of Present Illness The patient is a 3-year-old gentleman with a history of permanent atrial fibrillation who was admitted to the hospital for visual disturbance and expressive aphasia. Patient has a history of similar symptoms dating back to July of 2018. At that time there was some concern that he suffered a TIA. However, there was no definitive infarct on MRI scanning and there was some debate regarding whether this could been an atypical migraine. Patient does have a long history of migraines and more recently has been having brief episodes of ocular symptoms. The patient also has a history of colon cancer and was scheduled for routine surveillance colonoscopy. In order to facilitate colonoscopy and possible biopsy the patient discontinued his Xarelto approximately 3 days ago. He states that on the day after he stopped his Xarelto he began to feel poorly. The following day he felt even worse. He characterizes primarily as some ocular disturbance, fatigue and eventual difficulty with word finding. His son felt that he should contact EMS and based on the symptoms he was brought to the hospital for further evaluation. Currently he is feeling well. He states that all the symptoms have resolved entirely. Allergies Allergy/AdvReac Type Severity Reaction Status Date / Time hydromorphone Allergy Intermediate HALLUCINATI Verified 01/15/19 20:14 ONS lorazepam Allergy Intermediate HALLUCINATI Verified 01/15/19 20:14 ONS tetanus toxoid, adsorbed Allergy Intermediate BLISTERS Verified 01/15/19 20:14 AND EYES SWELLING Home Medications Home Medications Medication Instructions Recorded Confirmed Type Xarelto 20 mg PO QAM 12/29/18 01/15/19 History diltiazem HCl 120 mg PO QPM 12/29/18 01/15/19 History glipizide 5 mg PO QAM 12/29/18 01/15/19 History metoprolol succinate 100 mg PO QAM 12/29/18 01/15/19 History pantoprazole 40 mg PO QAM 12/29/18 01/15/19 History simvastatin 40 mg PO PM 12/29/18 01/15/19 History metformin 500 mg PO QDD #0 tab 01/16/19 01/15/19 Rx Patient History Medical History Atrial fibrillation follows with Dr. Patel Basal cell carcinoma (BCC) of face Basal cell carcinoma, arm Diabetes mellitus, type 2 Hiatal hernia History of anesthesia reaction had hallucination when having tonsils removed History of colon cancer 1979 History of yellow fever Hyperlipidemia Hypertension Migraine On anticoagulant therapy xarelto daily Osteoarthritis Squamous cell carcinoma skin of arm Surgical History History of bowel resection for colon cancer History of cardioversion x2 History of colonoscopy History of colostomy History of esophagogastroduodenoscopy (EGD) History of phacoemulsification of cataract of both eyes with intraocular lens implantation History of root canal procedure History of tonsillectomy and adenoidectomy History of total right hip replacement History of wisdom tooth extraction Hx of abdominal surgery bowel obstruction Hx of vasectomy Status post Mohs surgery for basal cell carcinoma Family History Father , age 91 Family history of diabetes mellitus Hypertension Mother , age 64 metastatic breast cancer Breast cancer Other No family history of adverse response to anesthesia Social History Preferred Language: Belgian Communication Ability: Effective Beliefs That Will Affect Care: None Current Living Situation: Spouse current occupational 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 No recent abdominal complaints. Physical Exam Physical Exam: The patient is alert and oriented. Mood and affect appeared normal. He answered all questions appropriately. HEENT: Pupils are equal and reactive to light and accommodation. Extraocular movements are intact. The sclerae are anicteric. Neuro: Cranial nerves intact Neck: Patient's neck is supple. There is no evidence of jugular venous distention. The thyroid is not enlarged. Extremities: There was no evidence of hypoperfusion. There is no cyanosis or clubbing. There is no edema. Skin: I did not appreciate any rashes on examination today. Results & Data Vital Signs (Past 12 Hours) Vital Signs Temp Pulse Pulse Resp BP BP BP 01/16/19 16:20 36.5 C 77 18 134/82 126/73 01/16/19 15:30 36.5 C 77 18 126/73 01/16/19 10:53 36.6 C 104 H 23 134/82 01/16/19 09:47 01/16/19 07:34 79 118/73 01/16/19 07:14 36.6 C 79 18 118/73 01/16/19 05:02 37.4 C 87 22 135/74 Pulse Ox 01/16/19 16:20 96 01/16/19 15:30 96 01/16/19 10:53 96 01/16/19 09:47 97 01/16/19 07:34 01/16/19 07:14 01/16/19 05:02 97 Laboratory Results Abnormal Lab Results 01/15/19 01/15/19 01/15/19 19:51 19:54 19:54 WBC RBC Hgb POC Hgb Hct POC Hct MCV MCH MCHC RDW Std Deviation RDW Coeff of [place] Plt Count MPV Immature Gran % (Auto) Neut % (Auto) Lymph % (Auto) [place] % (Auto) Eos % (Auto) Baso % (Auto) Immature Gran # (Auto) Neut # (Auto) Lymph # (Auto) [place] # (Auto) Eos # (Auto) Baso # (Auto) PT INR APTT PTT Ratio VBG pH 7.50 H VBG pCO2 28 L VBG pO2 25 VBG HCO3 21 VBG O2 Saturation < 60.0 VBG Base Excess -0.6 Barometric Pressure 727.0 POC Sodium Sodium POC Potassium Potassium POC Chloride Chloride Carbon Dioxide POC Total CO2 Anion Gap POC Anion Gap POC BUN BUN Creatinine POC Creatinine Est Cr Clr Drug Dosing Est GFR ( Amer) Est GFR (Non-Af Amer) BUN/Creatinine Ratio Glucose POC Glucose 145 H POC Glucose (other) Estimat Average Glucose Hemoglobin A1c Lactate 2.3 H* Calcium POC Ioniz Calcium [place] Phosphorus Magnesium Total Bilirubin AST ALT Alkaline Phosphatase POC Troponin I Troponin I Total Protein Albumin Globulin Albumin/Globulin Ratio Triglycerides Cholesterol LDL Cholesterol, Calc VLDL Cholesterol, Calc HDL Cholesterol Cholesterol/HDL Ratio TSH Free T4 Urine Color Urine Appearance Urine pH Ur Specific [place] Urine Protein Urine Glucose (UA) Urine Ketones Urine Blood Urine Nitrite Urine Bilirubin Urine Urobilinogen Ur Leukocyte Esterase Blood Type Antibody Screen 01/15/19 01/15/19 01/15/19 19:57 19:58 19:59 WBC 7.91 RBC 4.73 Hgb 12.6 L POC Hgb 12.9 L Hct 38.1 L POC Hct 38 L MCV 80.5 MCH 26.6 MCHC 33.1 RDW Std Deviation 41.3 RDW Coeff of [place] 14.1 Plt Count 204 MPV 8.9 Immature Gran % (Auto) 0.3 Neut % (Auto) 75.8 Lymph % (Auto) 13.3 [place] % (Auto) 9.2 Eos % (Auto) 0.8 Baso % (Auto) 0.6 Immature Gran # (Auto) 0.02 Neut # (Auto) 6.00 Lymph # (Auto) 1.05 L [place] # (Auto) 0.73 H Eos # (Auto) 0.06 Baso # (Auto) 0.05 PT INR APTT PTT Ratio VBG pH VBG pCO2 VBG pO2 VBG HCO3 VBG O2 Saturation VBG Base Excess Barometric Pressure POC Sodium 138 Sodium POC Potassium 4.4 Potassium POC Chloride 104 Chloride Carbon Dioxide POC Total CO2 21 L Anion Gap POC Anion Gap 19.0 POC BUN 18 BUN Creatinine POC Creatinine 1.4 H Est Cr Clr Drug Dosing Est GFR ( Amer) Est GFR (Non-Af Amer) BUN/Creatinine Ratio Glucose POC Glucose POC Glucose (other) 148 H Estimat Average Glucose Hemoglobin A1c Lactate Calcium POC Ioniz Calcium [place] 1.14 Phosphorus Magnesium Total Bilirubin AST ALT Alkaline Phosphatase POC Troponin I < 0.03 Troponin I Total Protein Albumin Globulin Albumin/Globulin Ratio Triglycerides Cholesterol LDL Cholesterol, Calc VLDL Cholesterol, Calc HDL Cholesterol Cholesterol/HDL Ratio TSH Free T4 Urine Color Urine Appearance Urine pH Ur Specific [place] Urine Protein Urine Glucose (UA) Urine Ketones Urine Blood Urine Nitrite Urine Bilirubin Urine Urobilinogen Ur Leukocyte Esterase Blood Type Antibody Screen 01/15/19 01/15/19 01/15/19 19:59 19:59 19:59 WBC RBC Hgb POC Hgb Hct POC Hct MCV MCH MCHC RDW Std Deviation RDW Coeff of [place] Plt Count MPV Immature Gran % (Auto) Neut % (Auto) Lymph % (Auto) [place] % (Auto) Eos % (Auto) Baso % (Auto) Immature Gran # (Auto) Neut # (Auto) Lymph # (Auto) [place] # (Auto) Eos # (Auto) Baso # (Auto) PT 10.5 INR 1.0 APTT 24.2 PTT Ratio 0.9 VBG pH VBG pCO2 VBG pO2 VBG HCO3 VBG O2 Saturation VBG Base Excess Barometric Pressure POC Sodium Sodium 140 POC Potassium Potassium 4.3 POC Chloride Chloride 105 Carbon Dioxide 24 POC Total CO2 Anion Gap 11.0 POC Anion Gap POC BUN BUN 19 H Creatinine 1.55 H POC Creatinine Est Cr Clr Drug Dosing 40.7 Est GFR ( Amer) 47.9 Est GFR (Non-Af Amer) 41.4 BUN/Creatinine Ratio 12.1 Glucose 144 H POC Glucose POC Glucose (other) Estimat Average Glucose Hemoglobin A1c Lactate Calcium 9.3 POC Ioniz Calcium [place] Phosphorus Magnesium 2.0 Total Bilirubin 1.0 AST 14 L ALT 17 Alkaline Phosphatase 72 POC Troponin I Troponin I < 0.015 Total Protein 7.2 Albumin 3.9 Globulin 3.3 Albumin/Globulin Ratio 1.2 Triglycerides Cholesterol LDL Cholesterol, Calc VLDL Cholesterol, Calc HDL Cholesterol Cholesterol/HDL Ratio TSH Free T4 Urine Color Urine Appearance Urine pH Ur Specific [place] Urine Protein Urine Glucose (UA) Urine Ketones Urine Blood Urine Nitrite Urine Bilirubin Urine Urobilinogen Ur Leukocyte Esterase Blood Type A Positive Antibody Screen NEGATIVE 01/15/19 01/15/19 01/16/19 20:50 20:51 05:56 WBC 6.39 RBC 4.17 L Hgb 11.1 L POC Hgb Hct 33.5 L POC Hct MCV 80.3 MCH 26.6 MCHC 33.1 RDW Std Deviation 42.4 RDW Coeff of [place] 14.5 Plt Count 179 MPV 8.7 Immature Gran % (Auto) 0.2 Neut % (Auto) 69.1 Lymph % (Auto) 19.1 [place] % (Auto) 11.1 Eos % (Auto) 0.2 Baso % (Auto) 0.3 Immature Gran # (Auto) 0.01 Neut # (Auto) 4.42 Lymph # (Auto) 1.22 [place] # (Auto) 0.71 H Eos # (Auto) 0.01 Baso # (Auto) 0.02 PT INR APTT PTT Ratio VBG pH VBG pCO2 VBG pO2 VBG HCO3 VBG O2 Saturation VBG Base Excess Barometric Pressure POC Sodium Sodium POC Potassium Potassium POC Chloride Chloride Carbon Dioxide POC Total CO2 Anion Gap POC Anion Gap POC BUN BUN Creatinine POC Creatinine Est Cr Clr Drug Dosing Est GFR ( Amer) Est GFR (Non-Af Amer) BUN/Creatinine Ratio Glucose POC Glucose POC Glucose (other) Estimat Average Glucose Hemoglobin A1c Lactate Calcium POC Ioniz Calcium [place] Phosphorus 2.1 L Magnesium Total Bilirubin AST ALT Alkaline Phosphatase POC Troponin I Troponin I Total Protein Albumin Globulin Albumin/Globulin Ratio Triglycerides Cholesterol LDL Cholesterol, Calc VLDL Cholesterol, Calc HDL Cholesterol Cholesterol/HDL Ratio TSH 4.990 H Free T4 0.95 Urine Color Yellow Urine Appearance Clear Urine pH 8.0 H Ur Specific [place] 1.023 Urine Protein Negative Urine Glucose (UA) Negative Urine Ketones 1+ H Urine Blood Negative Urine Nitrite Negative Urine Bilirubin Negative Urine Urobilinogen Negative Ur Leukocyte Esterase Negative Blood Type Antibody Screen 01/16/19 01/16/19 01/16/19 05:56 05:56 05:56 WBC RBC Hgb POC Hgb Hct POC Hct MCV MCH MCHC RDW Std Deviation RDW Coeff of [place] Plt Count MPV Immature Gran % (Auto) Neut % (Auto) Lymph % (Auto) [place] % (Auto) Eos % (Auto) Baso % (Auto) Immature Gran # (Auto) Neut # (Auto) Lymph # (Auto) [place] # (Auto) Eos # (Auto) Baso # (Auto) PT 11.1 INR 1.1 APTT 34.4 H PTT Ratio 1.3 VBG pH VBG pCO2 VBG pO2 VBG HCO3 VBG O2 Saturation VBG Base Excess Barometric Pressure POC Sodium Sodium 137 POC Potassium Potassium 3.8 POC Chloride Chloride 107 Carbon Dioxide 21 POC Total CO2 Anion Gap 9.0 POC Anion Gap POC BUN BUN 17 Creatinine 1.37 POC Creatinine Est Cr Clr Drug Dosing 43.7 Est GFR ( Amer) 55.7 Est GFR (Non-Af Amer) 48.0 BUN/Creatinine Ratio 12.3 Glucose 95 POC Glucose POC Glucose (other) Estimat Average Glucose 169 Hemoglobin A1c 7.5 H Lactate Calcium 8.1 L POC Ioniz Calcium [place] Phosphorus Magnesium Total Bilirubin 0.9 AST 14 L ALT 15 Alkaline Phosphatase 62 POC Troponin I Troponin I Total Protein 6.1 L Albumin 3.6 Globulin 2.5 Albumin/Globulin Ratio 1.4 Triglycerides 105 Cholesterol 91 LDL Cholesterol, Calc 32 VLDL Cholesterol, Calc 21 HDL Cholesterol 38 Cholesterol/HDL Ratio 2 TSH Free T4 Urine Color Urine Appearance Urine pH Ur Specific [place] Urine Protein Urine Glucose (UA) Urine Ketones Urine Blood Urine Nitrite Urine Bilirubin Urine Urobilinogen Ur Leukocyte Esterase Blood Type Antibody Screen 01/16/19 01/16/19 07:18 11:00 WBC RBC Hgb POC Hgb Hct POC Hct MCV MCH MCHC RDW Std Deviation RDW Coeff of [place] Plt Count MPV Immature Gran % (Auto) Neut % (Auto) Lymph % (Auto) [place] % (Auto) Eos % (Auto) Baso % (Auto) Immature Gran # (Auto) Neut # (Auto) Lymph # (Auto) [place] # (Auto) Eos # (Auto) Baso # (Auto) PT INR APTT PTT Ratio VBG pH VBG pCO2 VBG pO2 VBG HCO3 VBG O2 Saturation VBG Base Excess Barometric Pressure POC Sodium Sodium POC Potassium Potassium POC Chloride Chloride Carbon Dioxide POC Total CO2 Anion Gap POC Anion Gap POC BUN BUN Creatinine POC Creatinine Est Cr Clr Drug Dosing Est GFR ( Amer) Est GFR (Non-Af Amer) BUN/Creatinine Ratio Glucose POC Glucose 94 104 H POC Glucose (other) Estimat Average Glucose Hemoglobin A1c Lactate Calcium POC Ioniz Calcium [place] Phosphorus Magnesium Total Bilirubin AST ALT Alkaline Phosphatase POC Troponin I Troponin I Total Protein Albumin Globulin Albumin/Globulin Ratio Triglycerides Cholesterol LDL Cholesterol, Calc VLDL Cholesterol, Calc HDL Cholesterol Cholesterol/HDL Ratio TSH Free T4 Urine Color Urine Appearance Urine pH Ur Specific [place] Urine Protein Urine Glucose (UA) Urine Ketones Urine Blood Urine Nitrite Urine Bilirubin Urine Urobilinogen Ur Leukocyte Esterase Blood Type Antibody Screen Diagnostic Findings CT scan of the time admission every any acute intracranial process ECG Additional Comments: Atrial fibrillation with controlled ventricular rate
[2019-01-16] MEDS ORDERED: SIMVASTATIN 40 MG TAB PO SCH (21:00)
[2019-01-16] MEDS ORDERED: dilTIAZem HCL 120 MG CAPCR PO SCH (21:00)
--- NOTE | 2019-01-27 09:15 | Coding Query ---
To promote full compliance with coding requirements relating to patient care, provider participation is requested in all cases of printing gray cloth tender uncertainty. Please assist us with the question(s) below: Coding Question: On the discharge summary, TIA was listed under hospital course but Complex Migraine was documented as the discharge diagnosis. Please clarify if the patient was treated for a TIA during his stay or ruled-out. Thanks so much for your help with this! TIA ( ) Diagnosed and POA ( ) Diagnosed and not POA ( x ) Ruled out ( ) Other (please specify) MTDD
== END 2019-01-16 17:13 | disposition home or self-care (01) | DRG 103 ==
LOC: ED 19:45 → SUATTDRO 22:49 → 2E 22:49
DX: Z79.84 Long term (current) use of oral hypoglycemic drugs; Z79.01 Long term (current) use of anticoagulants; E11.9 Type 2 diabetes mellitus without complications; Z85.038 Personal history of other malignant neoplasm of large intestine; E78.5 Hyperlipidemia, unspecified; R47.01 Aphasia; Z79.899 Other long term (current) drug therapy; G43.109 Migraine with aura, not intractable, without status migrainosus; I10 Essential (primary) hypertension; I48.91 Unspecified atrial fibrillation

== ENCOUNTER 2020-06-14 16:07 | Observation (INO) ==
[2020-06-14] MEDS ORDERED: ONDANSETRON INJ 2 MG/ML 2 ML VIAL IV STA (16:36)
[2020-06-14] MEDS ORDERED: LORazepam 0.25 MG/0.5 ML VIAL IV STA (16:40)
--- NOTE | 2020-06-14 16:48 | Emergency Department Note ---
History of Present Illness General Chief Complaint: Abdominal Pain Stated Complaint: Abdominal Pain, not able to eat Time Seen by Provider: 06/14/20 16:21 History of Present Illness Provider Complaint: abdominal pain Onset (ago): 1 day(s) Pain Consistency: constant Location: diffuse Severity: similar to previous episodes (Similar to previous SBO's) Quality: + sharp Relieved By: + nothing Exacerbated By: + eating Context: + history of similar episodes (Similar to previous SBO's. States he ate chocolate covered almonds last night and states when he eats knots he frequently gets SBOS.) Associated Symptoms: + nausea and + vomiting (3 episodes); no diarrhea, no fever, no chills, no constipation, no dysuria, no hematemesis, no hematochezia, no melena, no hematuria and no chest pain Patient states he had a colostomy done 40 years ago. He states 3 to 4 years ago he had to have a surgery done by Dr. Redd Canela for small bowel obstruction. He states since then he has had 3-4 small bowel obstructions. He states his small bowel obstructions usually happen after he eats something wrong such as knots. Patient reports he ate chocolate covered almonds last night. He states he has had decreased flatus, decreased stool from his colostomy bag, and increasing abdominal pain similar to his previous small bowel obstructions. Patient states there is no bilious vomiting or coffee-ground emesis. Patient is on Xarelto. Patient states he wants to avoid surgery unless absolutely n ecessary. He states he has had trouble with NG tube in the past having removed them multiple times having hallucinations after receiving Dilaudid. Home Medications Home Medications Medication Instructions Recorded Confirmed Type rivaroxaban 20 mg tablet 20 mg PO QAM #90 tab 09/15/19 06/14/20 Rx cyanocobalamin (vitamin B-12) 1,000 mcg IM MONTHLY #4 ml 01/01/20 06/14/20 Rx 1,000 mcg/mL injection solution metoprolol succinate 100 mg 100 mg PO QAM #30 tab 01/01/20 06/14/20 Rx tablet,extended release 24 hr simvastatin 40 mg tablet 40 mg PO PM #30 tab 01/02/20 06/14/20 Rx famotidine 20 mg tablet 20 mg PO DAILY #90 tab 01/03/20 06/14/20 Rx glipizide 5 mg tablet, extended 5 mg PO QAM #90 tab 01/22/20 06/14/20 Rx release 24 hr metformin 500 mg tablet,extended 500 mg PO DAILY #90 tab 02/20/20 06/14/20 Rx release 24 hr diltiazem HCl 120 mg 120 mg PO QPM #90 tab 03/28/20 06/14/20 Rx tablet,extended release 24 hr ferrous sulfate 325 mg PO DAILY 06/14/20 06/14/20 History menthol-colloidal oatmeal [Eucerin 1 ea TOPICAL UD PRN 06/14/20 06/14/20 History Calming Itch-Relief] pantoprazole 40 mg PO BID 06/14/20 06/14/20 History Allergies Allergy/AdvReac Type Severity Reaction Status Date / Time hydromorphone Allergy Intermediate HALLUCINATI Verified 06/14/20 13:36 ONS lorazepam Allergy Intermediate HALLUCINATI Verified 06/14/20 13:36 ONS tetanus toxoid, adsorbed Allergy Intermediate BLISTERS Verified 06/14/20 13:36 AND EYES SWELLING Past Med/Surg History Medical History Atrial fibrillation follows with Dr. Patel B12 deficiency Basal cell carcinoma (BCC) of face Classic migraine Diabetes mellitus, type 2 Hiatal hernia History of anesthesia reaction had hallucination when having tonsils removed History of colon cancer 1979 History of yellow fever Hyperlipidemia Hypertension Mitral regurgitation On anticoagulant therapy xarelto daily Osteoarthritis Squamous cell carcinoma skin of arm Surgical History H/O hernia repair History of bowel resection for colon cancer History of cardioversion x2 History of colonoscopy History of colostomy History of esophagogastroduodenoscopy (EGD) History of phacoemulsification of cataract of both eyes with intraocular lens implantation History of root canal procedure History of tonsillectomy and adenoidectomy History of total right hip replacement History of wisdom tooth extraction Hx of abdominal surgery bowel obstruction Hx of vasectomy Status post Mohs surgery for basal cell carcinoma Family History Father , age 91 Hypertension Diabetes Mother , age 64 metastatic breast cancer Breast cancer Ovarian cancer Brother Colorectal cancer Other Coronary heart disease No family history of adverse response to anesthesia Denies family history of Prostate cancer Crohn's disease Inflammatory bowel disease Social History Smoking Status: Never smoker Second Hand Exposure: Yes ( smoked); Hx Alcohol Use: No Hx Substance Use: No Preferred Language: Amharic Communication Ability: Effective Visual Impairment: No Limitations Hearing Ability: Normal [employer] [place] Required: No Beliefs That Will Affect Care: None marital status: Current Living Situation: Spouse current occupational 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 Feels Safe at Home: Yes Physical Activity Frequency: 3-4 Times per Week Seatbelt Use: always Sunscreen Use: Yes Assistive Devices: None Review of Systems A total of 10 systems reviewed and were otherwise negative Physical Exam Vital Signs: Vital Signs - 24 hr 06/14/20 16:18 06/14/20 18:31 Temperature 36.5 C Temperature Source Oral Pulse Rate 58 L Pulse Rate [Right Finger] 77 Pulse Rhythm Regular Pulse Strength Normal Respiratory Rate 20 16 Blood Pressure 148/76 H Blood Pressure [Ri ght Arm] 121/90 Blood Pressure Ros n 100 Blood Pressure Ros n [Right Arm] 100 Blood Pressure Pos ition Sitting Pulse Oximetry 98 98 Sepsis Recent Feve r Within 48 Hours No Sepsis New/Unexpla ined Change in Men nima Status No Sepsis Action Take n by Nursing No Action Required Physical Exam: Physical Exam GENERAL: He is oriented to person, place, and time. He appears well-developed and well-nourished. He does not appear distressed. HENT: Exam performed. - Head: Normocephalic and atraumatic. - Right Ear: External ear normal. No mastoid tenderness. - Left Ear: External ear normal. No mastoid tenderness. - Mouth/Throat: The oropharynx is clear and moist. No trismus in the jaw. No dental abscesses or uvula swelling. No oropharyngeal exudate or tonsillar abscesses. EYES: Conjunctivae and EOM are normal. Pupils are equal, round, and reactive to light. Right eye exhibits no discharge. Left eye exhibits no discharge. No scleral icterus. NECK: Normal range of motion. Neck supple. No JVD present. No spinous process tenderness present. No carotid bruit present. No rigidity. No tracheal deviation and normal range of motion present. No Brudzinski's sign and no Kernig's sign noted. CV: Normal rate, regular rhythm, normal heart sounds and intact distal pulses. There is no peripheral edema. Palpable radial pulses bue. PULM/CHEST: Effort normal and breath sounds normal. No respiratory distress. No stridor. He has no wheezes. He has no rales. - Chest Wall: He exhibits no tenderness. ABD: The abdomen is soft. Colostomy bag present. Bowel sounds are normal. He has no distension. No mass is present. There diffuse tenderness to palpation. There is no rebound, no guarding, no Funez's sign and no tenderness at McBurney 's point. Rovsig negative. MUSC/SKEL: Normal range of motion. There is no peripheral edema, tenderness or deformity. LYMPH: No cervical adenopathy. NEURO: He is alert and oriented to person, place, and time. He has normal strength. No cranial nerve deficit or sensory deficit. Coordination and gait n ormal. GCS eye subscore is 4. GCS verbal subscore is 5. GCS motor subscore is 6. Cerebellar tests wnl. SKIN: Skin is warm and dry. He is not diaphoretic. PSYCH: He has a normal mood and affect. Behavior is normal. Judgment and thought content normal. Course Course 1621: The patient was evaluated in room B5. A complete history and physical exam was performed. EMR reviewed. Patient had an x-ray done outpatient today which showed developing bowel obstruction in the left upper quadrant. I did discuss with the patient and son at bedside. We will attempt NG tube and plan on admitting the patient to the hospital. Patient states he will try to get receive an NG tube but states he is not happy about receiving 1. He did ask for an antianxiety medication be given prior to NG tube placement. Patient has a listed allergy to Ativan causing hallucinations but the patient states it was more from the Dilaudid and less from the Ativan. Patient is okay with a small dose of Ativan. Patient be given Ativan 0.25 mg IV push. [facility] the [facility] who states he will evaluate the pat ient for admission. Both he and I feel there is no need for CT of the abdomen at this time given the patient has a long history of bowel obstructions and his x-ray done earlier today does show bowel obstruction. Administered Medications Sodium Chloride (Nss 1000ml) 1,000 mls @ 125 mls/hr IV .Q8H RACHEL Stop: 07/14/20 16:44 Last Admin: 06/14/20 17:06 Dose: 125 mls/hr Documented by: [id number] Discontinued Medications Lorazepam (Ativan) 0.25 mg in 0.5 mls @ 0.5 mls/min IV NOW STA Stop: 06/14/20 16:41 Last Admin: 06/14/20 17:06 Dose: 0.5 mls/min Documented by: [id number] Ondansetron HCl (Ondansetron Inj 2 Mg/Ml 2 Ml Vial) 4 mg IV NOW STA Stop: 06/14/20 16:37 Last Admin: 06/14/20 17:06 Dose: 4 mg Documented by: [id number] Medical Decision Making Laboratory Data Result diagrams: 06/14/20 16:41 06/14/20 16:41 Lab Results 06/14/20 06/14/20 Range/Units 16:41 16:41 WBC 10.32 (4.8-10.8) K/uL RBC 5.06 (4.7-6.1) M/uL Hgb 15.8 (14.0-18.0) g/dL Hct 45.6 (42-52) % MCV 90.1 (80-100) fL MCH 31.2 (25-34) pg MCHC 34.6 (32-36) g/dL RDW Std Deviation 43.5 (36.4-46.3) fL RDW Coeff of [place] 13.4 (11.5-14.5) % Plt Count 225 (130-400) K/uL MPV 9.8 (7.4-10.4) fL Immature Gran % (Auto) 0.3 % Neut % (Auto) 79.6 % Lymph % (Auto) 9.4 % [place] % (Auto) 10.3 % Eos % (Auto) 0.2 % Baso % (Auto) 0.2 % Neut # (Auto) 8.22 H (1.4-6.5) K/uL Lymph # (Auto) 0.97 L (1.2-3.4) K/uL [place] # (Auto) 1.06 H (0.11-0.59) K/uL Eos # (Auto) 0.02 (0-0.5) K/uL Baso # (Auto) 0.02 (0-0.2) K/uL Immature Gran # (Auto) 0.03 H (0.00-0.02) K/uL Sodium 136 (136-145) mmol/L Potassium 4.7 (3.5-5.1) mmol/L Chloride 105 (98-107) mmol/L Carbon Dioxide 25 (21-32) mmol/L Anion Gap 6.0 (3-11) BUN 18 (7-18) mg/dl Creatinine 1.65 H (0.6-1.4) mg/dl Est Cr Clr Drug Dosing 35.6 ml/min Est GFR ( Amer) 44.1 Est GFR (Non-Af Amer) 38.1 BUN/Creatinine Ratio 11.1 (10-20) Glucose 246 H (70-99) mg/dl Calcium 9.1 (8.5-10.1) mg/dl Total Bilirubin 1.0 (0.2-1) mg/dl Direct Bilirubin 0.3 H (0-0.2) mg/dl AST 12 L (15-37) U/L ALT 18 (12-78) U/L Alkaline Phosphatase 83 (45-117) U/L Total Protein 7.3 (6.4-8.2) gm/dl Albumin 3.9 (3.4-5.0) gm/dl Lipase 114 (73-393) U/L Specimen Hemolysis MDM Narrative The patient was evaluated in room B5. A complete history and physical exam was performed. EMR reviewed. Patient had an x-ray done outpatient today which showed developing bowel obstruction in the left upper quadrant. I did discuss with the patient and son at bedside. We will attempt NG tube and plan on admitting the patient to the hospital. Patient states he will try to get receive an NG tube but states he is not happy about receiving 1. He did ask for an antianxiety medication be given prior to NG tube placement. Patient has a listed allergy to Ativan causing hallucinations but the patient states it was more from the Dilaudid and less from the Ativan. Patient is okay with a small dose of Ativan. Patient be given Ativan 0.25 mg IV push. Discussed the case with Dr. [facility] hospitalist who states he will evaluate the pa tient for admission. Both he and I feel there is no need for CT of the abdomen at this time given the patient has a long history of bowel obstructions and his x-ray done earlier today does show bowel obstruction. Impression & Plan Small bowel obstruction Discharge Plan Visit Data Chief Complaint: Abdominal Pain Stated Complaint: Abdominal Pain, not able to eat ED Provider: Rigo Tinsley Discharge Problem: Small bowel obstruction Patient Disposition: Admitted As Inpatient Forms Stand Alone Forms: My [facility] Prescriptions Prescriptions: No Action Xarelto 20 mg tablet 20 mg PO QAM Qty: 90 RF: 3 metoprolol succinate 100 mg tablet extended release 24 hr 100 mg PO QAM Qty: 30 RF: 5 cyanocobalamin (vitamin B-12) 1,000 mcg/mL solution 1,000 mcg IM MONTHLY Qty: 4 RF: 0 simvastatin 40 mg tablet 40 mg PO PM Qty: 30 RF: 5 famotidine [Pepcid] 20 mg tablet 20 mg PO DAILY Qty: 90 RF: 1 glipizide 5 mg tablet extended release 24hr 5 mg PO QAM Qty: 90 RF: 3 metformin 500 mg tablet extended release 24 hr 500 mg PO DAILY Qty: 90 RF: 3 diltiazem HCl 120 mg tablet extended release 24 hr 120 mg PO QPM Qty: 90 RF: 3 ferrous sulfate 325 mg (65 mg iron) Capsule, Extended Release 325 mg PO DAILY RF: 0 Eucerin Calming Itch-Relief 0.1 % Lotion 1 ea TOPICAL UD PRN (Reason: Itching) RF: 0 pantoprazole 40 mg tablet,delayed release (DR/EC) 40 mg PO BID RF: 0 Referrals Referrals: Romulo Barker DO [Primary Care Provider] -
[2020-06-14 17:06] LABS: Basophils # (auto) 0.02 K/uL (0-0.2); Basophils % (auto) 0.2 %; Eosinophils # (auto) 0.02 K/uL (0-0.5); Eosinophils % (auto) 0.2 %; Hematocrit (blood only) 45.6 % (42-52); Hemoglobin 15.8 g/dL (14.0-18.0); Immature Granulocytes # (auto) 0.03 K/uL (0.00-0.02); Immature Granulocytes % (auto) 0.3 %; Lymphocytes # (auto) 0.97 K/uL (1.2-3.4); Lymphocytes % (auto) 9.4 %; Mean Corpuscular Hemoglobin 31.2 pg (25-34); Mean Corpuscular Hgb Conc 34.6 g/dL (32-36); Mean Corpuscular Volume 90.1 fL (80-100); Mean Platelet Volume 9.8 fL (7.4-10.4); Monocytes # (auto) 1.06 K/uL (0.11-0.59); Monocytes % (auto) 10.3 %; Neutrophils # (auto) 8.22 K/uL (1.4-6.5); Neutrophils % (auto) 79.6 %; Platelet Count 225 K/uL (130-400); RDW Coefficient of Variation 13.4 % (11.5-14.5); RDW Standard Deviation 43.5 fL (36.4-46.3); Red Blood Count 5.06 M/uL (4.7-6.1); White Blood Count 10.32 K/uL (4.8-10.8)
[2020-06-14] MEDS: SODIUM CHLORIDE 0.9% 1000ML 1,000 ML IV SCH (17:06)
[2020-06-14 17:29] LABS: Albumin Level 3.9 gm/dl (3.4-5.0); BUN Creatinine Ratio 11.1 (10-20); Bilirubin Direct 0.3 mg/dl (0-0.2); Calcium 9.1 mg/dl (8.5-10.1); Creatinine Clr Calc Pharmacy 35.6 ml/min; Est GFR (African American) 44.1; Est GFR (Non-African American) 38.1; Potassium 4.7 mmol/L (3.5-5.1); Total Protein 7.3 gm/dl (6.4-8.2)
--- NOTE | 2020-06-14 18:31 | History & Physical Report ---
Date of Service June 14, 2020 Assessment & Plan (1) Small bowel obstruction: Suspected clinically and on abdominal x-ray; no need for CT scan unless he was to symptomatically get worse. Unable to place NG tube in ER. Given nausea and vomiting have vastly improved no need to reattempt this. NPO EXCEPT MEDS. Ok to take diltiazem and metoprolol for rate control in atrial fibrillation but will convert other medications to IV. NSS @ 125 ml/hr (2) Atrial fibrillation: Continue diltiazem ER 120 mg every afternoon and metoprolol succinate 100 mg every morning for rate control Initially hold Xarelto however this can likely be restarted in the morning if he is stable at the time. (3) Diabetes mellitus, type 2: HbA1c 7.2 [03/04]. Will repeat with a.m. labs. Hold glipizide and Metformin. 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 Consider restarting Xarelto as above in a.m. Admission and Anticipated Discharge Date Admission Date: 06/14/2020 History of Present Illness Chief Complaint: Abdominal pain, nausea, vomiting. Primary Care Provider: Romulo Barker DO Amilcar Morin is an 84-year-old male who presents to the ER with abdominal pain, nausea, vomiting and diarrhea output from his colostomy yesterday. He was seen by his gastroenterology office today with concerns for small bowel obstruction given significant history of this (2 prior surgeries no relieve obstructions from adhesions per patient recollection). Seen by Dr Lopez as an outpatient. Outpatient abdominal x-ray was concerning for distended and gas filled loops of small bowel in left upper quadrant concerning for developing obstruction. In the ER CBC was relatively unremarkable, electrolytes WNL, creatinine 1.65 above baseline 1.31, glucose 246, otherwise labs relatively unremarkable. The patient reports his abdominal pain is improved since coming to the ER, he is having normal output in his colostomy bag today, no current nausea or vomiting after ondansetron and lorazepam given in the ER. NG tube was attempted in the ER however unsuccessful. Allergies Allergy/AdvReac Type Severity Reaction Status Date / Time hydromorphone Allergy Intermediate HALLUCINATI Verified 06/14/20 13:36 ONS lorazepam Allergy Intermediate HALLUCINATI Verified 06/14/20 13:36 ONS tetanus toxoid, adsorbed Allergy Intermediate BLISTERS Verified 06/14/20 13:36 AND EYES SWELLING Home Medications Home Medications Medication Instructions Recorded Confirmed Type rivaroxaban 20 mg tablet 20 mg PO QAM #90 tab 09/15/19 06/14/20 Rx cyanocobalamin (vitamin B-12) 1,000 mcg IM MONTHLY #4 ml 01/01/20 06/14/20 Rx 1,000 mcg/mL injection solution metoprolol succinate 100 mg 100 mg PO QAM #30 tab 01/01/20 06/14/20 Rx tablet,extended release 24 hr simvastatin 40 mg tablet 40 mg PO PM #30 tab 01/02/20 06/14/20 Rx famotidine 20 mg tablet 20 mg PO DAILY #90 tab 01/03/20 06/14/20 Rx glipizide 5 mg tablet, extended 5 mg PO QAM #90 tab 01/22/20 06/14/20 Rx release 24 hr metformin 500 mg tablet,extended 500 mg PO DAILY #90 tab 02/20/20 06/14/20 Rx release 24 hr diltiazem HCl 120 mg 120 mg PO QPM #90 tab 03/28/20 06/14/20 Rx tablet,extended release 24 hr ferrous sulfate 325 mg PO DAILY 06/14/20 06/14/20 History menthol-colloidal oatmeal [Eucerin 1 ea TOPICAL UD PRN 06/14/20 06/14/20 History Calming Itch-Relief] pantoprazole 40 mg PO BID 06/14/20 06/14/20 History Past Med/Surg History Medical History Atrial fibrillation follows with Dr. Patel B12 deficiency Basal cell carcinoma (BCC) of face Classic migraine Diabetes mellitus, type 2 Hiatal hernia History of anesthesia reaction had hallucination when having tonsils removed History of colon cancer 1978 History of yellow fever Hyperlipidemia Hypertension Mitral regurgitation On anticoagulant therapy xarelto daily Osteoarthritis Squamous cell carcinoma skin of arm Surgical History H/O hernia repair History of bowel resection for colon cancer History of cardioversion x2 History of colonoscopy History of colostomy History of esophagogastroduodenoscopy (EGD) History of phacoemulsification of cataract of both eyes with intraocular lens implantation History of root canal procedure History of tonsillectomy and adenoidectomy History of total right hip replacement History of wisdom tooth extraction Hx of abdominal surgery bowel obstruction Hx of vasectomy Status post Mohs surgery for basal cell carcinoma Family History Father , age 91 Hypertension Diabetes Mother , age 64 metastatic breast cancer Breast cancer Ovarian cancer Brother Colorectal cancer Other Coronary heart disease No family history of adverse response to anesthesia Denies family history of Prostate cancer Crohn's disease Inflammatory bowel disease Social History Smoking Status: Never smoker Second Hand Exposure: Yes ( smoked); Hx Alcohol Use: No Hx Substance Use: No Preferred Language: Faroese Communication Ability: Effective Visual Impairment: No Limitations Hearing Ability: Normal [employer] Faculty Member Required: No Beliefs That Will Affect Care: None marital status: Current Living Situation: Alone 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 occupational 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[employer]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 That Helps Us Care for You: No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 Feels Safe at Home: Yes Safety Concerns: Feels Safe At This Time Physical Activity Frequency: 3-4 Times per Week Seatbelt Use: always Sunscreen Use: Yes Assistive Devices: None Assistive Devices Comment: glasses only for driving at night Review of Systems Review of Systems: All systems reviewed & are unremarkable except as noted in HPI & below Physical Exam Constitutional: well developed and well nourished; no acute distress Eyes: + anicteric sclerae; normal pupil size ENMT: Ears: no external ear abnormality Nose: no external nose abnormality Neck: trachea midline, no thyromegaly Respiratory: normal respiratory effort, lungs clear to auscultation Cardiovascular: Rate/Rhythm: regular rate and + irregularly irregular Heart Sounds: no murmur Extremities: normal capillary refill; no calf tenderness and no pedal edema Gastrointestinal (Abdomen): Inspection/Auscultation: normal bowel sounds; + abdomen abnormal to inspection (Colostomy bag in place with soft brown/green stool) Percussion/Palpation: + abdomen tender (Generalized abdominal tenderness most pronounced inferior to colostomy) and abdomen soft; no guarding and abdomen not rigid Musculoskeletal: no cyanosis or clubbing, extremities motor strength 5/5 Skin: no rashes, warm and dry Neurologic: moves all extremities and awake; not confused Psychiatric: A+Ox3, euthymic affect Genitourinary: no CVA tenderness Results & Data Results & Data ([facility]) Vital Signs (Past 12 Hours) Vital Signs Temp Pulse Resp BP Pulse Ox 06/14/20 16:18 36.5 C 58 L 20 148/76 H 98 Diagnostic Findings PA CHEST WITH ABDOMINAL SERIES IMPRESSION: 1. Cardiomegaly with no acute cardiopulmonary abnormality. 2. There are distended and gas-filled loops of small bowel left upper quadrant. Correlate clinically for evidence of developing obstruction. Consider short-term radiographic follow-up for reassessment. Code Status & VTE Plan Code Status Full as discussed with the patient VTE Prophylaxis Plan VTE Prophylaxis will be ordered: Yes PG Care Time/CCT Total # of Minutes Spent Total Time Spent with Patient: Total time spent is greater than 50% in coordination of care (as documented) at patient's floor/unit and/or counseling patient: Coding Level of Care Code 68779 Initial Inpt Care Lvl 2 Diagnoses Small bowel obstruction K56.609 Atrial fibrillation I48.91 Diabetes mellitus, type [address] Z93.3 Hypertension I10 DVT prophylaxis Z29.9
[2020-06-14] MEDS ORDERED: GLUCOSE 40% GEL 15 GM TUBE PO PRN (20:10)
[2020-06-14] MEDS ORDERED: ONDANSETRON INJ 2 MG/ML 2 ML VIAL IV PRN (20:10)
[2020-06-14] MEDS ORDERED: CARBOHYDRATES FOR HYPOGLYCEMIA PO PRN (20:10)
[2020-06-14] MEDS ORDERED: DEXTROSE 50% 50 ML SYRINGE IV PRN (20:10)
[2020-06-14] MEDS ORDERED: GLUCAGON FOR INJ 1 MG VIAL SQ PRN (20:10)
[2020-06-14] MEDS ORDERED: GLUCOSE 10 TABS/TUBE PO PRN (20:10)
[2020-06-14] MEDS ORDERED: fentaNYL citrate 100 MCG/2 ML VIAL IV PRN (20:10)
[2020-06-14] MEDS ORDERED: PROMETHAZINE HCL 6.25 MG in SODIUM CHLORIDE 0.9% 50 ML IV PRN (21:16)
--- NOTE | 2020-06-14 21:51 | Surgery Consultation ---
Date of Consultation June 14, 2020 Assessment & Plan (1) Small bowel obstruction: -as pt. has not vomited since 3 am this morning, will continue conservative measures with NPO status and IVF for hydration -I informed him that if N/V ensues he will require NGT for decompression (this was attempted in ED and was not successful) -will repeat KUB in am to assess bowel gas pattern -if pt. does not improved clinically in next 24-48 hours, will consider CT scan of the abdomen with oral contrast History of Present Illness Attending Physician: Richard Campbell MD History of Present Illness 84 year old male presented to the ED due to abdominal pain as well as N/V that started yesterday. He notes no provocative factors and feels his pain improved slightly after vomiting. He reports a hx. of colorectal cancer over 40 years ago, for which he had a resection and colostomy. He has since had SBO on 3-4 occasions. About 4-5 years ago he required surgery for one of his SBOs, but the most recent 2 times were successfully treated in a conservative manner. In the ED, he had an obstruction series that showed concern for a possible SBO. Since admission, he notes he has been having gas and stool passage from his colostomy. He was in no distress at the time of my exam. Allergies Allergy/AdvReac Type Severity Reaction Status Date / Time hydromorphone Allergy Intermediate HALLUCINATI Verified 06/14/20 13:36 ONS lorazepam Allergy Intermediate HALLUCINATI Verified 06/14/20 13:36 ONS tetanus toxoid, adsorbed Allergy Intermediate BLISTERS Verified 06/14/20 13:36 AND EYES SWELLING Home Medications Home Medications Medication Instructions Recorded Confirmed Type rivaroxaban 20 mg tablet 20 mg PO QAM #90 tab 09/15/19 06/14/20 Rx cyanocobalamin (vitamin B-12) 1,000 mcg IM MONTHLY #4 ml 01/01/20 06/14/20 Rx 1,000 mcg/mL injection solution metoprolol succinate 100 mg 100 mg PO QAM #30 tab 01/01/20 06/14/20 Rx tablet,extended release 24 hr simvastatin 40 mg tablet 40 mg PO PM #30 tab 01/02/20 06/14/20 Rx famotidine 20 mg tablet 20 mg PO DAILY #90 tab 01/03/20 06/14/20 Rx glipizide 5 mg tablet, extended 5 mg PO QAM #90 tab 01/22/20 06/14/20 Rx release 24 hr metformin 500 mg tablet,extended 500 mg PO DAILY #90 tab 02/20/20 06/14/20 Rx release 24 hr diltiazem HCl 120 mg 120 mg PO QPM #90 tab 03/28/20 06/14/20 Rx tablet,extended release 24 hr ferrous sulfate 325 mg PO DAILY 06/14/20 06/14/20 History menthol-colloidal oatmeal [Eucerin 1 ea TOPICAL UD PRN 06/14/20 06/14/20 History Calming Itch-Relief] pantoprazole 40 mg PO BID 06/14/20 06/14/20 History Patient History Medical History Atrial fibrillation follows with Dr. Patel B12 deficiency Basal cell carcinoma (BCC) of face Classic migraine Diabetes mellitus, type 2 Hiatal hernia History of anesthesia reaction had hallucination when having tonsils removed History of colon cancer 1979 History of yellow fever Hyperlipidemia Hypertension Mitral regurgitation On anticoagulant therapy xarelto daily Osteoarthritis Squamous cell carcinoma skin of arm Surgical History H/O hernia repair History of bowel resection for colon cancer History of cardioversion x2 History of colonoscopy History of colostomy History of esophagogastroduodenoscopy (EGD) History of phacoemulsification of cataract of both eyes with intraocular lens implantation History of root canal procedure History of tonsillectomy and adenoidectomy History of total right hip replacement History of wisdom tooth extraction Hx of abdominal surgery bowel obstruction Hx of vasectomy Status post Mohs surgery for basal cell carcinoma Family History Father , age 91 Hypertension Diabetes Mother , age 64 metastatic breast cancer Breast cancer Ovarian cancer Brother Colorectal cancer Other Coronary heart disease No family history of adverse response to anesthesia Denies family history of Prostate cancer Crohn's disease Inflammatory bowel disease Social History Smoking Status: Never smoker Second Hand Exposure: Yes ( smoked); Hx Alcohol Use: No Hx Substance Use: No Preferred Language: Hebrew Communication Ability: Effective Visual Impairment: No Limitations Hearing Ability: Normal Sql Report Writer Required: No Beliefs That Will Affect Care: None marital status: Current Living Situation: Alone current occupational 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[employer], [employer]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 That Helps Us Care for You: No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 Feels Safe at Home: Yes Safety Concerns: Feels Safe At This Time Physical Activity Frequency: 3-4 Times per Week Seatbelt Use: always Sunscreen Use: Yes Assistive Devices: None Assistive Devices Comment: glasses only for driving at night Review of Systems Constitutional: no fever and no chills Eyes: no diplopia Ear, Nose, Mouth, Throat: no ear pain Respiratory: no cough and no dyspnea Cardiovascular: no chest pain Gastrointestinal: + abdominal pain, + nausea and + vomiting Genitourinary: no dysuria Musculoskeletal: no back pain Integumentary: no rash Neurologic: no localized weakness Physical Exam Constitutional: well developed and well nourished; no acute distress Eyes: no conjunctival abnormality ENMT: Ears: no hearing impairment Respiratory: normal respiratory effort, lungs clear to auscultation Cardiovascular: Rate/Rhythm: regular rate and regular rhythm Vessels: posterior tibial pulses present Gastrointestinal (Abdomen): Inspection/Auscultation: + hypoactive bowel sounds Percussion/Palpation: abdomen soft; abdomen nontender minimal distention noted; colostomy in LLQ is pink and viable; brown stool and gas noted in collection bag Musculoskeletal: no calf pain Skin: no rashes, warm and dry Neurologic: moves all extremities Results & Data ([facility]) Vital Signs (Past 12 Hours) Vital Signs Temp Pulse Pulse Resp BP BP BP 06/14/20 20:12 36.9 C 87 16 138/87 06/14/20 19:40 72 19 143/88 H 06/14/20 18:31 77 16 121/90 06/14/20 16:18 36.5 C 58 L 20 148/76 H Pulse Ox 06/14/20 20:12 96 06/14/20 19:40 98 06/14/20 18:31 98 06/14/20 16:18 98 PG Care Time/CCT Total # of Minutes Spent Total Time Spent with Patient: Total time spent is greater than 50% in coordin ation of care (as documented) at patient's floor/unit and/or counseling patient: Coding Level of Care Code 32932 Inpt Consult Level 4 Diagnoses Small bowel obstruction K56.609
[2020-06-14] MEDS: ACETAMINOPHEN 1,000 MG/100 ML VIAL IV SCH (22:19)
[2020-06-14] MEDS: dilTIAZem HCL 120 MG CAPCR PO SCH (22:20)
[2020-06-14] MEDS: SIMVASTATIN 40 MG TAB PO SCH (22:20)
[2020-06-14] MEDS: PANTOprazole 40 MG in SYRINGE 0 ML IV SCH (22:21)
[2020-06-14] MEDS: INSULIN GLARGINE SOLOSTAR 100 UNITS/ML 3 ML PEN SC SCH (22:26)
[2020-06-14] MEDS: INSULIN ASPART 100 UNITS/ML 3 ML PEN SC SCH (22:26)
[2020-06-15] MEDS: SODIUM CHLORIDE 0.9% 1000ML 1,000 ML IV SCH ×3 (01:00→16:40)
[2020-06-15] MEDS: ACETAMINOPHEN 1,000 MG/100 ML VIAL IV SCH ×3 (05:37→23:16)
--- NOTE | 2020-06-15 06:46 | Surgery Progress Note ---
Date of Service June 15, 2020 Assessment & Plan (1) Small bowel obstruction: -pt. has clinically improved with conservative measures -will repeat KUB this am to assess bowel gas pattern -may consider a trial of clears later today as above. feeling much better. no pain or nausea today. xray looks better. will start clears...sould try full liquids later today Admission and Anticipated Discharge Date Admission Date: June 14, 2020 Subjective Pt. denies N/V or worsening pain since my visit last night. He notes small amount of stool but considerable amount of gas in collection bag. Physical Exam Constitutional: well developed and well nourished; no acute distress Respiratory: normal respiratory effort; no respiratory distress and no labored breathing Gastrointestinal (Abdomen): Percussion/Palpation: abdomen soft; abdomen nontender ostomy is pink and viable; small amount of stool in bag Results & Data ([facility]) Vital Signs (Past 12 Hours) Vital Signs Temp Pulse Pulse Resp BP BP Pulse Ox 06/14/20 23:50 36.3 C L 87 18 135/84 96 06/14/20 20:12 36.9 C 87 16 138/87 96 06/14/20 19:40 72 19 143/88 H 98 PG Care Time/CCT Total # of Minutes Spent Total Time Spent with Patient: Total time spent is greater than 50% in coordination of care (as documented) at patient's floor/unit and/or counseling patient: Coding Level of Care Code 61129 Subseq Hosp Care Lvl 1 Diagnoses Small bowel obstruction K56.609
--- NOTE | 2020-06-15 07:19 | XRay Report ---
KUB CLINICAL HISTORY: Small bowel obstruction. FINDINGS: 2 AP, portable, supine abdominal radiographs are compared to study dated 06/14/2020 and cor related with abdominal CT dated 01/16/2019. There is a nonobstructed abdominal bowel gas pattern. Diste nded loops of small bowel seen on yesterday's examination have resolved. [id number] fecal reten tion is seen throughout the colon. There are no abnormal abdominal calcifications. Surgical clips are seen in the pelvis. The skeletal structures are osteopenic and appear intact. Lumbosacral spondylosi s is observed. A right hip arthroplasty is in place. IMPRESSION: Nonobstructed abdominal bowel gas pattern. Distended loops of small bowel seen yesterday have resolved. Electronically signed by: Behzad Bradley M.D. 06/15/2020 7:18 AM
[2020-06-15] MEDS: INSULIN ASPART 100 UNITS/ML 3 ML PEN SC SCH ×4 (08:30→20:22)
[2020-06-15] MEDS: PANTOprazole 40 MG in SYRINGE 0 ML IV SCH ×2 (08:57→20:21)
[2020-06-15] MEDS: METOPROLOL SUCC 50MG EXT REL TAB PO SCH (08:57)
[2020-06-15 10:19] LABS: Basophils # (auto) 0.01 K/uL (0-0.2); Basophils % (auto) 0.2 %; Eosinophils # (auto) 0.12 K/uL (0-0.5); Eosinophils % (auto) 1.9 %; Hematocrit (blood only) 40.7 % (42-52); Hemoglobin 13.8 g/dL (14.0-18.0); Immature Granulocytes # (auto) 0.02 K/uL (0.00-0.02); Immature Granulocytes % (auto) 0.3 %; Lymphocytes # (auto) 1.07 K/uL (1.2-3.4); Lymphocytes % (auto) 17.3 %; Mean Corpuscular Hemoglobin 31.1 pg (25-34); Mean Corpuscular Hgb Conc 33.9 g/dL (32-36); Mean Corpuscular Volume 91.7 fL (80-100); Mean Platelet Volume 9.4 fL (7.4-10.4); Monocytes # (auto) 0.54 K/uL (0.11-0.59); Monocytes % (auto) 8.7 %; Neutrophils # (auto) 4.44 K/uL (1.4-6.5); Neutrophils % (auto) 71.6 %; Platelet Count 164 K/uL (130-400); RDW Coefficient of Variation 13.6 % (11.5-14.5); RDW Standard Deviation 45.2 fL (36.4-46.3); Red Blood Count 4.44 M/uL (4.7-6.1)
[2020-06-15 10:44] LABS: Estimated Average Glucose 171 mg/dl; Hemoglobin A1C 7.6 % (4.5-5.6)
[2020-06-15 11:25] LABS: BUN Creatinine Ratio 12.6 (10-20); Calcium 8.2 mg/dl (8.5-10.1); Creatinine Clr Calc Pharmacy 46.3 ml/min; Est GFR (African American) 60.6; Est GFR (Non-African American) 52.3; Potassium 3.9 mmol/L (3.5-5.1)
[2020-06-15] MEDS: INSULIN GLARGINE SOLOSTAR 100 UNITS/ML 3 ML PEN SC SCH ×2 (12:07→20:21)
[2020-06-15] MEDS: FAMOTIDINE 20 MG in SYRINGE 3 ML IV SCH (12:07)
--- NOTE | 2020-06-15 14:19 | Gastrointestinal Consultation ---
Date of Consultation June 15, 2020 Assessment & Plan (1) Small bowel obstruction: (2) Abdominal discomfort: resolving SBO as shown on KUB today Recs: --continue to advance diet as tolerated --supportive care, replete lytes prn --can follow up in the GI office in 1-2 weeks Thank you for allowing me to participate in the care of this patient History of Present Illness Attending Physician: Duke Severino 84 yo male who presented with abd pains, nausea and vomiting, concerns for bowel obstruction. KUB on admission showed possible developing SBO. His pain improved while hospitalized and this morning is currently having good output from his colostomy bag. Repeat KUB today shows resolving SBO. Had some clear liquids with some mild discomfort today. Otherwise no significant issues. VSS, no fevers. labs reviewed. Allergies Allergy/AdvReac Type Severity Reaction Status Date / Time hydromorphone Allergy Intermediate HALLUCINATI Verified 06/14/20 13:36 ONS lorazepam Allergy Intermediate HALLUCINATI Verified 06/14/20 13:36 ONS tetanus toxoid, adsorbed Allergy Intermediate BLISTERS Verified 06/14/20 13:36 AND EYES SWELLING Home Medications Home Medications Medication Instructions Recorded Confirmed Type rivaroxaban 20 mg tablet 20 mg PO QAM #90 tab 09/15/19 06/14/20 Rx cyanocobalamin (vitamin B-12) 1,000 mcg IM MONTHLY #4 ml 01/01/20 06/14/20 Rx 1,000 mcg/mL injection solution metoprolol succinate 100 mg 100 mg PO QAM #30 tab 01/01/20 06/14/20 Rx tablet,extended release 24 hr simvastatin 40 mg tablet 40 mg PO PM #30 tab 01/02/20 06/14/20 Rx famotidine 20 mg tablet 20 mg PO DAILY #90 tab 01/03/20 06/14/20 Rx glipizide 5 mg tablet, extended 5 mg PO QAM #90 tab 01/22/20 06/14/20 Rx release 24 hr metformin 500 mg tablet,extended 500 mg PO DAILY #90 tab 02/20/20 06/14/20 Rx release 24 hr diltiazem HCl 120 mg 120 mg PO QPM #90 tab 03/28/20 06/14/20 Rx tablet,extended release 24 hr ferrous sulfate 325 mg PO DAILY 10/30/20 10/30/20 History menthol-colloidal oatmeal [Eucerin 1 ea TOPICAL UD PRN 06/14/20 06/14/20 History Calming Itch-Relief] pantoprazole 40 mg PO BID 06/14/20 06/14/20 History Patient History Medical History Atrial fibrillation follows with Dr. Patel B12 deficiency Basal cell carcinoma (BCC) of face Classic migraine Diabetes mellitus, type 2 Hiatal hernia History of anesthesia reaction had hallucination when having tonsils removed History of colon cancer 1978 History of yellow fever Hyperlipidemia Hypertension Mitral regurgitation On anticoagulant therapy xarelto daily Osteoarthritis Squamous cell carcinoma skin of arm Surgical History H/O hernia repair History of bowel resection for colon cancer History of cardioversion x2 History of colonoscopy History of colostomy History of esophagogastroduodenoscopy (EGD) History of phacoemulsification of cataract of both eyes with intraocular lens implantation History of root canal procedure History of tonsillectomy and adenoidectomy History of total right hip replacement History of wisdom tooth extraction Hx of abdominal surgery bowel obstruction Hx of vasectomy Status post Mohs surgery for basal cell carcinoma Family History Father , age 91 Hypertension Diabetes Mother , age 64 metastatic breast cancer Breast cancer Ovarian cancer Brother Colorectal cancer Other Coronary heart disease No family history of adverse response to anesthesia Denies family history of Prostate cancer Crohn's disease Inflammatory bowel disease Social History Smoking Status: Never smoker Second Hand Exposure: Yes ( smoked); Hx Alcohol Use: No Hx Substance Use: No Preferred Language: Polish Communication Ability: Effective Visual Impairment: No Limitations Hearing Ability: Normal Tools Developer Required: No Beliefs That Will Affect Care: None marital status: Current Living Situation: Alone 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 occupational 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[employer], [employer]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 That Helps Us Care for You: No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 Feels Safe at Home: Yes Safety Concerns: Feels Safe At This Time Physical Activity Frequency: 3-4 Times per Week Seatbelt Use: always Sunscreen Use: Yes Assistive Devices: None Assistive Devices Comment: glasses only for driving at night Review of Systems Constitutional: no fever, no chills and no weight loss Eyes: as per Subjective / HPI Ear, Nose, Mouth, Throat: as per Subjective / HPI Respiratory: no dyspnea and no dyspnea on exertion Cardiovascular: no chest pain and no palpitations Gastrointestinal: as per Subjective / HPI Musculoskeletal: no joint pain and no swelling Integumentary: no rash and no lesions Neurologic: no numbness and no paresthesia Psychiatric: no depression and no anxiety Endocrine: no fatigue Hematologic / Lymphatic: no easy bleeding and no easy bruising Physical Exam Constitutional: WD/WN, vitals as above Eyes: EOM intact bilaterally Neck: normal visual inspection Respiratory: normal respiratory effort, lungs clear to auscultation Cardiovascular: RRR, no murmur, no edema Gastrointestinal (Abdomen): Inspection/Auscultation: abdomen normal to inspection; abdomen not distended Percussion/Palpation: abdomen soft; abdomen nontender and no hepatosplenomegaly Musculoskeletal: Extremities: no cyanosis Gait: normal gait Skin: no rashes, warm and dry Neurologic: moves all extremities Psychiatric: A+Ox3, euthymic affect Results & Data ([facility]) Vital Signs (Past 12 Hours) Vital Signs Temp Pulse Resp BP Pulse Ox 06/15/20 07:44 36.4 C L 70 16 125/71 96 PG Care Time/CCT Total # of Minutes Spent Total Time Spent with Patient: Total time spent is greater than 50% in coordination of care (as documented) at patient's floor/unit and/or counseling patient: Coding Level of Care Code 75812 Initial Inpt Care Lvl 3 Diagnoses Small bowel obstruction K56.609 Abdominal discomfort R10.9
--- NOTE | 2020-06-15 16:31 | Hospitalist Progress Note ---
Date of Service June 15, 2020 Assessment & Plan (1) Small bowel obstruction: Patient with history of obstruction or consistently over the last 5 years This time KUB today shows loops of bowel that were concerned yesterday were resolved Patient still has gas-filled appearance Diet advanced to clear liquids today and tolerating well. Will move to full liquid diet this afternoon Patient now with stool in colostomy bag Continue to follow (2) History of colon cancer: Colon resection initially in 1978 secondary to adenocarcinoma Several years ago the patient also had resection with colostomy with Dr. Anand Cameron At that time patient was told by Dr. Cameron that he most likely would have recurrent bowel obstruction because of the amount of adhesions No recurrence of malignancy Outpatient management (3) Nausea and vomiting: Resolved (4) Colostomy in place: Ostomy box present. No need for ostomy nurse at this time Appears sealed with stool in bag (5) Diabetes mellitus, type 2: Glipizide and Metformin at home Sliding scale insulin while inpatient with basal Lantus Hemoglobin A1c is 7.6 Further outpatient management (6) Atrial fibrillation: Continue diltiazem and Toprol-XL Ectopic beats noted. Rate controlled in the 70s Continue anticoagulation with rivaroxaban (7) Iron deficiency: Continue ferrous sulfate Hemoglobin 13.8 (8) Hypertension: Hemodynamically stable Continue amlodipine and Toprol-XL Follow vital signs per protocol (9) Transient ischemic attack (TIA): No residual effects Continue aspirin Patient anticoagulated for atrial fibrillation with rivaroxaban (10) Peripheral neuropathy: Seems to be controlled No outpatient gabapentin prescribed Follow expectantly Suspect secondary to diabetes mellitus type 2 as above (11) DVT prophylaxis: Anticoagulated for atrial fibrillation with rivaroxaban Ambulate as tolerated in hallways Encouraged activity with patient during my visit. Admission and Anticipated Discharge Date Admission Date: June 14, 2020 Subjective Attending: Dr. Severino Mr. Morin is a very pleasant 84-year-old male who hails from [place] and looks younger than his stated age. He had adenocarcinoma of the colon 37 years ago and had a colostomy at that time. He continues with a colostomy due to the resection of the sigmoid colon. He presented with a small bowel obstruction and states that he gets an obstruction approximately once a year for the last 5 years. Usually, it will resolve on its own. At the time of my examination patient was feeling better and had no abdominal pain. There was formed soft stool in his colostomy bag. He is just beginning to advance his diet with a clear liquid diet and tolerating that well. He denies any fever or chills. He has no further nausea or vomiting or abdominal pain. Overall, he is feeling improved. Review of Systems Review of Systems: All systems reviewed & are unremarkable except as noted in Subjective Physical Exam Physical Exam: GENERAL : No acute distress EYES: No icterus, gaze conjugate NOSE: No evidence of epistaxis MOUTH: No lesions or candidiasis NECK: Supple LUNGS: CTA B/L, no wheezes, rales or rhonchi HEART: Regular, rate controlled ABDOMEN: Minimal tenderness to abdominal palpation. There is no guarding. Colostomy bag is in place with no leakage around the seal. There is soft formed stool that is brown with no evidence of bleeding or mucus. The os is retracted and not protruding. Colostomy looks intact and well. EXTREMITIES: No LE edema, pedal pulses intact NEURO: A&OX3 Results & Data Results & Data ([facility]) Vital Signs (Past 12 Hours) Vital Signs Temp Pulse Resp BP Pulse Ox 06/15/20 14:29 36.4 C L 75 16 127/69 96 06/15/20 07:44 36.4 C L 70 16 125/71 96 Laboratory Results 06/15/20 09:50 06/15/20 09:50 Diagnostic Findings KUB CLINICAL HISTORY: Small bowel obstruction. FINDINGS: 2 AP, portable, supine abdominal radiographs are compared to study dated 06/14/2020 and correlated with abdominal CT dated 01/16/2019. There is a nonobstructed abdominal bowel gas pattern. Distended loops of small bowel seen on yesterday's examination have resolved. [id number]-[id number] fecal retention is seen throughout the colon. There are no abnormal abdominal calcifications. Surgical clips are seen in the pelvis. The skeletal structures are osteopenic and appear intact. Lumbosacral spondylosis is observed. A right hip arthroplasty is in place. IMPRESSION: Nonobstructed abdominal bowel gas pattern. Distended loops of small bowel seen yesterday have resolved. Electronically signed by: Behzad Bradley M.D. 06/15/2020 7:18 AM PG Care Time/CCT Total # of Minutes Spent Total Time Spent with Patient: Total time spent is greater than 50% in coordination of care (as documented) at patient's floor/unit and/or counseling patient: 35 minutes including chart review and discussion with patient and attending Coding Level of Care Code 50216 Subseq Hosp Care Lvl 2 Diagnoses Small bowel obstruction K56.609 History of colon cancer Z85.038 Nausea and vomiting R11.[address] Z93.3 Diabetes mellitus, type 2 E11.9 Atrial fibrillation I48.91 Iron deficiency E61.1 Hypertension I10 Transient ischemic attack (TIA) G45.9 Peripheral neuropathy G62.9 DVT prophylaxis Z29.9 Time Spent (min) 35
[2020-06-15] MEDS: SIMVASTATIN 40 MG TAB PO SCH (20:20)
[2020-06-15] MEDS: dilTIAZem HCL 120 MG CAPCR PO SCH (20:20)
[2020-06-16] MEDS: SODIUM CHLORIDE 0.9% 1000ML 1,000 ML IV SCH (00:42)
[2020-06-16] MEDS: ACETAMINOPHEN 1,000 MG/100 ML VIAL IV SCH (01:15)
--- NOTE | 2020-06-16 06:21 | Surgery Progress Note ---
Date of Service June 16, 2020 Assessment & Plan (1) Small bowel obstruction: -pt. continues to clinically improve with conservative measures -will advance diet furhter today and if tolerated can be d/c hoe from surgery standpoint as above. feeling well. large bm through stoma. no pain. no nausea. will advance diet. d/c planning y Admission and Anticipated Discharge Date Admission Date: June 14, 2020 Subjective Pt. reports large BM with large passage of gas as well. No N/V with full liquids. He denies worsening abdominal pain. Physical Exam Constitutional: well developed and well nourished; no acute distress Gastrointestinal (Abdomen): Percussion/Palpation: abdomen soft; abdomen nontender ostomy is pink and viable; large amount of stool in collection bag (mostly liquid) Results & Data ([facility]) Vital Signs (Past 12 Hours) Vital Signs Temp Pulse Resp BP Pulse Ox 06/15/20 23:10 36.3 C L 65 18 134/83 99 06/15/20 20:25 79 145/82 H PG Care Time/CCT Total # of Minutes Spent Total Time Spent with Patient: Total time spent is greater than 50% in coordination of care (as documented) at patient's floor/unit and/or counseling patient: Coding Level of Care Code 82198 Subseq Hosp Care Lvl 2 Diagnoses Small bowel obstruction K56.609
[2020-06-16 07:41] VITALS: PULSE 84; TEMP 97.9; O2SAT 96
[2020-06-16] MEDS ORDERED: FERROUS SULFATE 325 MG TAB PO SCH (09:00)
[2020-06-16] MEDS ORDERED: RIVAROXABAN 20 MG TAB PO SCH (09:00)
[2020-06-16] MEDS: INSULIN ASPART 100 UNITS/ML 3 ML PEN SC SCH (09:44)
[2020-06-16] MEDS: METOPROLOL SUCC 50MG EXT REL TAB PO SCH (09:46)
[2020-06-16] MEDS: PANTOprazole 40 MG in SYRINGE 0 ML IV SCH (09:46)
[2020-06-16] MEDS: INSULIN GLARGINE SOLOSTAR 100 UNITS/ML 3 ML PEN SC SCH (09:46)
[2020-06-16] MEDS: FAMOTIDINE 20 MG in SYRINGE 3 ML IV SCH (09:46)
--- NOTE | 2020-06-16 12:29 | Discharge Summary ---
Date of Service June 16, 2020 Admission HPI Per Admitting Provider Amilcar Morin is an 84-year-old male who presents to the ER with abdominal pain, nausea, vomiting and diarrhea output from his colostomy yesterday. He was seen by his gastroenterology office today with concerns for small bowel obstruction given significant history of this (2 prior surgeries no relieve obstructions from adhesions per patient recollection). Seen by Dr Lopez as an outpatient. Outpatient abdominal x-ray was concerning for distended and gas filled loops of small bowel in left upper quadrant concerning for developing obstruction. In the ER CBC was relatively unremarkable, electrolytes WNL, creatinine 1.65 above baseline 1.31, glucose 246, otherwise labs relatively unremarkable. The patient reports his abdominal pain is improved since coming to the ER, he is having normal output in his colostomy bag today, no current nausea or vomiting after ondansetron and lorazepam given in the ER. NG tube was attempted in the ER however unsuccessful. Admission Exam Per Admitting Provider See H&P Principal Diagnosis Small Bowel Obstruction Discharge Exam Temp Pulse Resp BP Pulse Ox 36.6 C 84 16 151/89 H 96 06/16/20 07:39 06/16/20 07:39 06/16/20 07:39 06/16/20 07:39 06/16/20 07:39 Patient is afebrile. He is hypertensive at 151/89, but is asymptomatic. Constitutional average body habitus; no acute distress ENMT Ears: no hearing impairment Neck normal visual inspection Respiratory normal respiratory effort, lungs clear to auscultation Cardiovascular RRR, no murmur, no edema Gastrointestinal (Abdomen) Inspection/Auscultation: normal bowel sounds Percussion/Palpation: abdomen soft; abdomen nontender Ostomy erythematous and viable Psychiatric A+Ox3, euthymic affect Discharge Data Allergies Allergy/AdvReac Type Severity Reaction Status Date / Time hydromorphone Allergy Intermediate HALLUCINATI Verified 06/14/20 13:36 ONS lorazepam Allergy Intermediate HALLUCINATI Verified 06/14/20 13:36 ONS tetanus toxoid, adsorbed Allergy Intermediate BLISTERS Verified 06/14/20 13:36 AND EYES SWELLING Consultations 06/14/20 16:41 ED Decision to Admit Stat 06/14/20 20:10 Consult General Surgery Routine 06/16/20 11:26 Consult [facility] transit manager Routine Hospital Course (1) Small bowel obstruction: Recurrent SBO. Now resolved. Patient is tolerating a soft diet this morning. Denies n/v. He reports normal stool output filling his colostomy bag earlier today. (2) History of colon cancer: Hx of colon resection in 1978 secondary to adenocarcinoma and repeat resection with colostomy with Dr. Cameron several years ago. (3) Nausea and vomiting: Resolved. (4) Colostomy in place: [place] and viable with output resumed to normal. (5) Diabetes mellitus, type 2: Resume Glipizide and Metformin at home. Last HgbA1C noted to be 7.6% (6) Hypertension: Last BP of 151/89. Patient is asymptomatic and hemodynamically stable. Continue diltiazem and Toprol XL upon discharge. (7) Transient ischemic attack (TIA): Patient with hx of TIA and migraines. Patient developed confusion with a headache overnight. ? migraine vs sundowning. Symptoms resolved with Tylenol shortly. The patient does have a history of A-fib for which he takes Xarelto. Patient states he has multiple episodes similar to this over the past several years which he feels are often related to migraine headaches or when he is NPO for colonoscopy. He has seen Dr. Zarate in the past for this issue, and reports he has been evaluated for CVA in the past. Symptoms have completely resolved, and the patient is requesting referral to neurology upon discharge for further evaluation. He would like to be discharged home today. The patient does live with his , and son feels comfortable taking him home at this time. (8) DVT prophylaxis: Currently anticoagulated with rivaroxaban. (9) Iron deficiency: Continue ferrous sulfate. Total Time Total Time Spent Total Time Spent (In Minutes): >30 minutes Total Time Includes: Examination of the Patient, Discharge Planning, Medication Reconciliation and Communication With Other Providers Discharge Plan Discharge Items Patient Disposition: Home - Self-Care Reason For Visit: SMALL BOWEL OBSTRUCTION Discharge Diagnosis: Small Bowel Obstruction Activity: Resume your previous activity Lifting: Gradually increase as tolerated Bathing: No limitations Sexual Activity: After one week Exercise/Sports: Gradually increase as tolerated Driving/Machine Use: No limitations Weightbearing: Full weightbearing Non-emergency contact: Primary Care Provider Call non-emergency contact if: your symptoms worsen, your pain is worsening and you have a fever Follow-up/Referrals: Nish Zarate MD [Physician] - 08/21/20 10:45 am (An appointment has been made for you with Dr. Alcazar on August 21 at 10:45. This is the first available appt.) Romulo Barker DO [Primary Care Provider] - 06/25/20 11:00 am Diet: Carb Consistent or DM2 Addtl Attending Provider Instructions: Follow-up with Primary care in 1 week. Follow-up with [facility] in 1-2 weeks. Pending Studies at Discharge: No Stand-Alone Forms: [facility] Medications and DC Order Prescriptions: Continued Xarelto 20 mg tablet 20 mg PO QAM Qty: 90 RF: 3 metoprolol succinate 100 mg tablet extended release 24 hr 100 mg PO QAM Qty: 30 RF: 5 cyanocobalamin (vitamin B-12) 1,000 mcg/mL solution 1,000 mcg IM MONTHLY Qty: 4 RF: 0 simvastatin 40 mg tablet 40 mg PO PM Qty: 30 RF: 5 famotidine [Pepcid] 20 mg tablet 20 mg PO DAILY Qty: 90 RF: 1 glipizide 5 mg tablet extended release 24hr 5 mg PO QAM Qty: 90 RF: 3 metformin 500 mg tablet extended release 24 hr 500 mg PO DAILY Qty: 90 RF: 3 diltiazem HCl 120 mg tablet extended release 24 hr 120 mg PO QPM Qty: 90 RF: 3 ferrous sulfate 325 mg (65 mg iron) Capsule, Extended Release 325 mg PO DAILY RF: 0 Eucerin Calming Itch-Relief 0.1 % Lotion 1 ea TOPICAL UD PRN (Reason: Itching) RF: 0 pantoprazole 40 mg tablet,delayed release (DR/EC) 40 mg PO BID RF: 0 Discharge Orders: Discharge Order (Routine); Ordered 06/16/20 Ordered By: Whitney Garcia/Other Patient Handouts: Small Bowel Obstruction, High Blood Sugar (Hyperglycemia), Hypoglycemia (Low Blood Sugar), Managing Type 2 Diabetes Admission Data Admit Date/Time: 06/14/20 18:28 Attending Provider: Duke Severino Admit Provider: Richard Campbell Primary Care Provider: Romulo Barker Other Providers: Richard Campbell ; Talat Verdin Other Interventions: Discharge Summary Assessment (RN) Last Done: 06/16/20 13:06 Supervising Physician Co-Signing Physician Notes Patient is seen and examined at bedside. During face to face encounter, obtained a history of today's symptoms and physical examination. I reviewed above note and agree with it. I discussed discharge plan with patient and [facility] Kietr. Patient is here for a SBO, and this has resolved. Ok for discharge. Will resume colostomy bag. Discharge instructions below. Coding Level of Care Code Established Pt D/C Day Management >30 mins Patient Type Established Medical Decision Making Moderate Complexity Diagnoses Small bowel obstruction K56.609 History of colon cancer Z85.038 Nausea and vomiting R11.[address] Z93.3 Diabetes mellitus, type 2 E11.9 Hypertension I10 Transient ischemic attack (TIA) G45.9 DVT prophylaxis Z29.9 Iron deficiency E61.1 Time Spent (min) 60
[2020-06-16 13:08] VITALS: BP 121/90
== END 2020-06-16 13:58 | disposition home or self-care (01) ==
LOC: ED 16:07 → 3N 18:28 → INTOOBSV 18:28 → SUATTDRO 18:28 → 3N 19:40

== ENCOUNTER 2022-05-28 08:17 | Observation (INO) ==
--- NOTE | 2022-05-28 08:40 | Emergency Department Note ---
Impression & Plan Expressive aphasia ADMIT ED Provider Note HPI: The patient is an 86-year-old male with history of atrial fibrillation, currently on anticoagulation with Xarelto, presents the emergency department with a chief complaint of slurred speech and expressive aphasia type symptoms since 8:30 PM (approximately 12 hours ago). The symptoms were noted by the patient's , he presents this morning with his son at the bedside through triage with continued symptoms of expressive aphasia and slurred speech. He does not have any other focal deficits. Patient's son states that he does have a history of atypical migraine headaches and he has had similar symptoms in the past associated with migraine. On arrival here to the ED the patient slightly tachycardic but otherwise hemodynamically stable, he is saturating well on room air, he is able to follow most of my commands appropriately but he is unable to speak coherently back to me and seems to be suffering from some expressive aphasia. ROS: -Neuro: Speech problems *10 point review systems was conducted and is otherwise negative unless stated above *Outpatient medications and allergy history reviewed PE: General: Alert HEENT: Normocephalic, trachea midline Eyes: Extraocular eye movement is intact, no scleral erythema Pulmonary: Clear to auscultation bilaterally, no wheezing Cardio: Regular rate and rhythm GI: Abdomen is soft, nontender : No suprapubic tenderness MSK: No evidence of trauma or malformation of the extremities, no edema Skin: No evidence of rash Neuro: Alert, there is no drift of the upper extremities or lower extremities with testing against gravity, equal bilateral knit tubing dyer strength, symmetrical facial movements are appreciated, patient is noted to have apparent expressive aphasia Psychiatric: Cooperative dyer and washer: - An order was placed for continuous cardiac monitoring - Patient was noted to be in atrial fibrillation with a rate of 105 EKG: Rate: 109 Rhythm: Atrial fibrillation Intervals: QTC 517 ms, QRS 146 ms, CA indeterminate ST changes: No ST elevation Time: 0841 NIH STROKE SCALE: 1A: Level of consciousness Alert; keenly responsive 0 1B: Ask month and age Aphasic +2 1C: 'Blink eyes' & 'squeeze hands' Performs both tasks 0 2: Horizontal extraocular movements Normal 0 3: Visual ness No visual loss 0 4: Facial palsy Normal symmetry 0 5A: Left arm motor drift No drift for 10 seconds 0 5B: Right arm motor drift No drift for 10 seconds 0 6A: Left leg motor drift No drift for 5 seconds 0 6B: Right leg motor drift No drift for 5 seconds 0 7: Limb Ataxia 0 -patient unable to follow instructions for ataxia testing 8: Sensation Normal; no sensory loss 0 9: Language/aphasia Severe aphasia: fragmentary expression, inference needed, cannot identify materials +2 10: Dysarthria Mild-moderate dysarthria: slurring but can be understood +1 11: Extinction/inattention No abnormality 0 TOTAL NIH SCORE =5 Interventions provided in ED: - Medical Decision Making: Patient presented to the emergency department with symptoms of dysarthria and expressive aphasia. Stroke alert was initiated from triage as the patient arrived by private vehicle. Patient's symptoms were noted to have onset 12 hours prior to arrival therefore he was not considered a candidate for tnK. On arrival to the ED the patient is stable and alert, he does exhibit issues with expressive aphasia on my examination. Otherwise no focal deficits are noted. IV was established, patient was placed on oil driller, patient was initially taken immediately to CT imaging without contrast that does not show any evidence of intracranial bleeding. 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 I discussed all the above with on-call stroke neurology at [facility], Dr. Benítez, who did review imaging and assessed the patient via telestroke cart, and at this time recommending aspirin be given and the patient can be admitted for secondary stroke work-up and MRI. He is in agreement that the patient likely had an ischemic stroke which likely occurred last evening when his symptoms began. Lab work otherwise shows evidence of hyperglycemia, slight reduction in serum bicarbonate level to 19, however the patient is not acidotic on VBG and actually is slightly alkalotic. Low suspicion for DKA. Chest x-ray does not show any e vidence of infection/pneumonia. Lab work is otherwise without critical findings. I discussed the above findings with the patient and his son at the bedside, they are in agreement for admission and for further management, case was discussed with the on-call hospitalist for [facility] and the patient was admitted in stable condition for further care. Diagnosis: 1. Strokelike episode 2. Expressive aphasia 3. Hyperglycemia Disposition: Admission Jason Bialas, DO Emergency Medicine Past Med/Surg History Medical History Atrial fibrillation B12 deficiency Basal cell carcinoma (BCC) of face Classic migraine Diabetes mellitus, type 2 Hiatal hernia History of anesthesia reaction History of yellow fever Hyperlipidemia Hypertension Hypothyroidism Mitral regurgitation On anticoagulant therapy Osteoarthritis Rotator cuff tear Small bowel obstruction Squamous cell carcinoma skin of arm Transient ischemic attack (TIA) Surgical History H/O hernia repair History of bowel resection History of cardioversion History of colonoscopy History of colostomy History of esophagogastroduodenoscopy (EGD) History of phacoemulsification of cataract of both eyes with intraocular lens implantation History of root canal procedure History of tonsillectomy and adenoidectomy History of total right hip replacement History of wisdom tooth extraction Hx of abdominal surgery Hx of vasectomy Status post Mohs surgery for basal cell carcinoma Family History Father Hypertension Diabetes Mother Breast cancer Ovarian cancer Brother Colorectal cancer Other Coronary heart disease No family history of adverse response to anesthesia Denies family history of Prostate cancer Crohn's disease Myocardial infarction Lung cancer Inflammatory bowel disease Social History Smoking Status: Former smoker Tobacco Type: Pipe Age Started Using Tobacco: 22; Age Quit Using Tobacco: 52; Second Hand Exposure: No ( smoked); Hx Alcohol Use: No Hx Substance Use: No Preferred Language: Macedonian Communication Ability: Effective Visual Impairment: Diminished Hearing Ability: Normal Tubular Stock Glass Bulb Machine Former Required: No Beliefs That Will Affect Care: None marital status: Current Living Situation: Spouse current occupational 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, [employer] How many Children do You have: 1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 Feels Safe at Home: Yes Childhood Exposure to Second-Hand Smoke: Yes (father smoked in home ) caffeine: Yes (drinks coffee daily about half a cup ) Dental Care, Regularly: Yes Physical Activity Frequency: 3-4 Times per Week Physical Activity Frequency Comment: 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 Seatbelt Use: always Sunscreen Use: No (says he does cover up well ) Do you think of yourself as: straight/heterosexual Assistive Devices: Glasses Allergies Allergies Allergy/AdvReac Type Severity Reaction Status Date / Time tetanus toxoid, adsorbed Allergy Intermediate BLISTERS Verified 05/28/22 10:56 AND EYES SWELLING hydromorphone AdvReac Intermediate HALLUCINATI Verified 05/28/22 10:56 ONS lorazepam AdvReac Intermediate HALLUCINATI Verified 05/28/22 10:56 ONS Home Meds Home Medications Medication Instructions Recorded Confirmed mecobalamin (vitamin B12) 1,000 1,000 mcg PO QPM 07/23/20 05/28/22 mcg chewable tablet cholecalciferol (vitamin D3) 50 50 mcg PO QAM 12/10/20 05/28/22 mcg (2,000 unit) capsule cvafpxpx-vji-kzcoz acid 300 1 tab PO QAM 12/10/20 05/28/22 mcg-lycopene 600 mcg-lutein 300 mcg tablet (Centrum Silver Men) aluminum hydrox-magnesium carb 95 15 ml PO DAILY PRN 05/27/22 05/28/22 mg-358 mg/15 mL oral suspension HEARTBURN/INDIGESTION (Gaviscon) wheat dextrin 3 gram/3.5 gram oral 1.5 g PO DAILY 05/27/22 05/28/22 powder packet (Benefiber Clear Sugar Free(dextrin)) Previous Rx's Medication Instructions Recorded pantoprazole 40 mg tablet,delayed 40 mg PO DAILY #90 tabs 10/22/21 release rivaroxaban 20 mg tablet (Xarelto) 20 mg PO QAM #90 tabs 12/01/21 levothyroxine 50 mcg tablet 50 mcg PO QAM #90 tabs 12/18/21 simvastatin 40 mg tablet 40 mg PO PM #30 tabs 12/26/21 glipizide 2.5 mg tablet, extended 2.5 mg PO QAM #90 tabs 01/21/22 release 24 hr glipizide 5 mg tablet, extended 5 mg PO QAM #90 tabs 01/22/22 release 24 hr metformin 500 mg tablet,extended 500 mg PO QPM #90 tabs 03/23/22 release 24 hr metoprolol succinate 100 mg 100 mg PO QAM #30 tabs 03/30/22 tablet,extended release 24 hr diltiazem HCl 120 mg 120 mg PO DAILY #90 caps 04/02/22 capsule,extended release 24 hr (Cartia XT) lisinopril 2.5 mg tablet 2.5 mg PO DAILY #90 tabs 04/22/22 empagliflozin 10 mg tablet 10 mg PO DAILY #30 tabs 04/28/22 (Jardiance) prednisone 10 mg tablets in a dose 10 mg PO .COMPLEX #21 ea 05/27/22 pack Results & Data (ED) Vital Signs Vital Signs - 24 hr 05/28/22 08:23 05/28/22 08:36 05/28/22 08:48 Temperature 36.4 C L Temperature Source Temporal Artery Scan Pulse Rate 122 H Pulse Rate [Apical] 118 H Pulse Rate from SpO2 Sensor Respiratory Rate 24 29 H Blood Pressure 148/94 H Blood Pressure [Right Arm] 140/110 H Blood Pressure Mean 112 Blood Pressure Mean [Right Arm] 120 Blood Pressure Position [Right Arm] Right Lateral Pulse Oximetry 100 Oxygen Delivery Method Room Air Room Air Room Air Sepsis Recent Fever Within 48 Hours No Sepsis New/Unexplained Change in Mental Status N/A Sepsis Action Taken by Nursing No Action Required 05/28/22 08:48 05/28/22 08:59 05/28/22 08:47 Temperature Temperature Source Pulse Rate 101 H Pulse Rate [Apical] Pulse Rate from SpO2 Sensor 102 H Respiratory Rate Blood Pressure Blood Pressure [Right Arm] Blood Pressure Mean Blood Pressure Mean [Right Arm] Blood Pressure Position [Right Arm] Pulse Oximetry 99 98 Oxygen Delivery Method Room Air Room Air Room Air Sepsis Recent Fever Within 48 Hours Sepsis New/Unexplained Change in Mental Status Sepsis Action Taken by Nursing 05/28/22 08:48 05/28/22 08:48 05/28/22 09:00 Temperature Temperature Source Pulse Rate 88 Pulse Rate [Apical] Pulse Rate from SpO2 Sensor 98 H Respiratory Rate 33 H Blood Pressure 146/94 H 139/92 Blood Pressure [Right Arm] Blood Pressure Mean 111 107 Blood Pressure Mean [Right Arm] Blood Pressure Position [Right Arm] Pulse Oximetry 99 Oxygen Delivery Method Room Air Sepsis Recent Fever Within 48 Hours Sepsis New/Unexplained Change in Mental Status Sepsis Action Taken by Nursing 05/28/22 09:00 05/28/22 09:15 05/28/22 09:15 Temperature Temperature Source Pulse Rate 94 H 86 Pulse Rate [Apical] Pulse Rate from SpO2 Sensor 100 H 86 Respiratory Rate 25 H 31 H Blood Pressure 130/99 Blood Pressure [Right Arm] Blood Pressure Mean 109 Blood Pressure Mean [Right Arm] Blood Pressure Position [Right Arm] Pulse Oximetry 97 100 Oxygen Delivery Method Room Air Room Air Sepsis Recent Fever Within 48 Hours Sepsis New/Unexplained Change in Mental Status Sepsis Action Taken by Nursing 05/28/22 09:30 05/28/22 09:30 05/28/22 09:45 Temperature Temperature Source Pulse Rate 84 Pulse Rate [Apical] Pulse Rate from SpO2 Sensor 75 Respiratory Rate 23 Blood Pressure 132/84 142/106 H Blood Pressure [Right Arm] Blood Pressure Mean 100 118 Blood Pressure Mean [Right Arm] Blood Pressure Position [Right Arm] Pulse Oximetry 99 Oxygen Delivery Method Room Air Sepsis Recent Fever Within 48 Hours Sepsis New/Unexplained Change in Mental Status Sepsis Action Taken by Nursing 05/28/22 09:45 05/28/22 10:00 05/28/22 10:00 Temperature Temperature Source Pulse Rate 98 H 93 H Pulse Rate [Apical] Pulse Rate from SpO2 Sensor 100 H 84 Respiratory Rate 16 26 H Blood Pressure 132/75 Blood Pressure [Right Arm] Blood Pressure Mean 94 Blood Pressure Mean [Right Arm] Blood Pressure Position [Right Arm] Pulse Oximetry 96 100 Oxygen Delivery Method Room Air Sepsis Recent Fever Within 48 Hours Sepsis New/Unexplained Change in Mental Status Sepsis Action Taken by Nursing 05/28/22 10:15 05/28/22 10:15 05/28/22 10:30 Temperature Temperature Source Pulse Rate 85 Pulse Rate [Apical] Pulse Rate from SpO2 Sensor 85 Respiratory Rate 17 Blood Pressure 141/86 H 136/84 Blood Pressure [Right Arm] Blood Pressure Mean 104 101 Blood Pressure Mean [Right Arm] Blood Pressure Position [Right Arm] Pulse Oximetry 100 Oxygen Delivery Method Sepsis Recent Fever Within 48 Hours Sepsis New/Unexplained Change in Mental Status Sepsis Action Taken by Nursing 05/28/22 10:30 Temperature Temperature Source Pulse Rate 77 Pulse Rate [Apical] Pulse Rate from SpO2 Sensor 79 Respiratory Rate 23 Blood Pressure Blood Pressure [Right Arm] Blood Pressure Mean Blood Pressure Mean [Right Arm] Blood Pressure Position [Right Arm] Pulse Oximetry 98 Oxygen Delivery Method Room Air Sepsis Recent Fever Within 48 Hours Sepsis New/Unexplained Change in Mental Status Sepsis Action Taken by Nursing Laboratory Data Result diagrams: 05/28/22 08:34 05/28/22 08:34 Lab Results 05/28/22 05/28/22 05/28/22 Range/Units 08:34 08:34 08:34 WBC 10.68 (4.8-10.8) K/ul RBC 5.06 (4.63-6.08) M/uL Hgb 13.1 L (14.0-18.0) g/dl POC Hgb (14.0-18.0) g/dl Hct 41.8 (40.1-51.0) % POC Hct (42-52) % MCV 82.6 (80.0-100.0) fL MCH 25.9 (25.0-34.0) pg MCHC 31.3 L (32.0-36.0) g/dL RDW Std Deviation 47.8 H (36.4-46.3) fL RDW Coeff of Parisa 16.1 H (11.5-14.5) % Plt Count 246 (130-400) K/uL MPV 9.3 L (9.4-12.4) fL PT 12.1 H (9.0-12.0) Seconds INR 1.1 (0.9-1.1) APTT 32.9 H (21.0-31.0) Seconds PTT Ratio 1.2 VBG pH (7.36-7.41) VBG pCO2 (38-50) mmHg VBG pO2 mmHg VBG HCO3 mmol/L VBG O2 Saturation % VBG Base Excess mEq/L POC Sodium (135-144) mmol/L Sodium 139 (136-145) mmol/L POC Potassium (3.3-5.0) mmol/L Potassium 4.7 (3.5-5.1) mmol/L POC Chloride (101-112) mmol/L Chloride 103 (98-107) mmol/L Carbon Dioxide 19 L (21-32) mmol/L POC Total CO2 (24-31) mmol/L Anion Gap 17 H (3-11) POC Anion Gap (16-25) mmol/L POC BUN (7-18) mg/dl BUN 19 (6-23) mg/dl Creatinine 1.45 H (0.6-1.4) mg/dl POC Creatinine (0.6-1.3) mg/dl Est Cr Clr Drug Dosing 39.2 ml/min Est GFR ( Amer) 50.9 ml/min Est GFR (Non-Af Amer) 43.9 ml/min BUN/Creatinine Ratio 13.1 (10-20) Glucose 238 H (70-99(Fasting)) mg/dl POC Glucose (70-99) mg/dl POC Glucose (other) (70-99) mg/dl Calcium 10.3 H (8.5-10.1) mg/dl POC Ioniz Calcium Rochelle (1.12-1.32) mmol/l Magnesium 2.2 (1.7-2.4) mg/dl Total Bilirubin 1.3 H (0.2-1.0) mg/dl AST 16 (13-39) U/L ALT 14 (7-52) U/L Alkaline Phosphatase 63 (34-104) U/L Total Protein 8.0 (6.0-8.3) gm/dl Albumin 4.9 (3.4-5.0) gm/dl Globulin 3.1 (2.5-4.0) gm/dl Albumin/Globulin Ratio 1.6 (0.9-2) SARS-CoV-2, RNA, NAAT (NEGATIVE) 05/28/22 05/28/22 05/28/22 Range/Units 08:34 08:49 09:27 WBC (4.8-10.8) K/ul RBC (4.63-6.08) M/uL Hgb (14.0-18.0) g/dl POC Hgb 14.6 (14.0-18.0) g/dl Hct (40.1-51.0) % POC Hct 43 (42-52) % MCV (80.0-100.0) fL MCH (25.0-34.0) pg MCHC (32.0-36.0) g/dL RDW Std Deviation (36.4-46.3) fL RDW Coeff of Parisa (11.5-14.5) % Plt Count (130-400) K/uL MPV (9.4-12.4) fL PT (9.0-12.0) Seconds INR (0.9-1.1) APTT (21.0-31.0) Seconds PTT Ratio VBG pH 7.51 H (7.36-7.41) VBG pCO2 24 L (38-50) mmHg VBG pO2 30 mmHg VBG HCO3 19 mmol/L VBG O2 Saturation < 60.0 % VBG Base Excess -2.1 mEq/L POC Sodium 139 (135-144) mmol/L Sodium (136-145) mmol/L POC Potassium 4.7 (3.3-5.0) mmol/L Potassium (3.5-5.1) mmol/L POC Chloride 107 (101-112) mmol/L Chloride (98-107) mmol/L Carbon Dioxide (21-32) mmol/L POC Total CO2 17 L (24-31) mmol/L Anion Gap (3-11) POC Anion Gap 21.0 (16-25) mmol/L POC BUN 18 (7-18) mg/dl BUN (6-23) mg/dl Creatinine (0.6-1.4) mg/dl POC Creatinine 1.3 (0.6-1.3) mg/dl Est Cr Clr Drug Dosing ml/min Est GFR ( Amer) ml/min Est GFR (Non-Af Amer) ml/min BUN/Creatinine Ratio (10-20) Glucose (70-99(Fasting)) mg/dl POC Glucose 260 H (70-99) mg/dl POC Glucose (other) 251 H (70-99) mg/dl Calcium (8.5-10.1) mg/dl POC Ioniz Calcium Rochelle 1.20 (1.12-1.32) mmol/l Magnesium (1.7-2.4) mg/dl Total Bilirubin (0.2-1.0) mg/dl AST (13-39) U/L ALT (7-52) U/L Alkaline Phosphatase (34-104) U/L Total Protein (6.0-8.3) gm/dl Albumin (3.4-5.0) gm/dl Globulin (2.5-4.0) gm/dl Albumin/Globulin Ratio (0.9-2) SARS-CoV-2, RNA, NAAT (NEGATIVE) 05/28/22 Range/Units 10:01 WBC (4.8-10.8) K/ul RBC (4.63-6.08) M/uL Hgb (14.0-18.0) g/dl POC Hgb (14.0-18.0) g/dl Hct (40.1-51.0) % POC Hct (42-52) % MCV (80.0-100.0) fL MCH (25.0-34.0) pg MCHC (32.0-36.0) g/dL RDW Std Deviation (36.4-46.3) fL RDW Coeff of Parisa (11.5-14.5) % Plt Count (130-400) K/uL MPV (9.4-12.4) fL PT (9.0-12.0) Seconds INR (0.9-1.1) APTT (21.0-31.0) Seconds PTT Ratio VBG pH (7.36-7.41) VBG pCO2 (38-50) mmHg VBG pO2 mmHg VBG HCO3 mmol/L VBG O2 Saturation % VBG Base Excess mEq/L POC Sodium (135-144) mmol/L Sodium (136-145) mmol/L POC Potassium (3.3-5.0) mmol/L Potassium (3.5-5.1) mmol/L POC Chloride (101-112) mmol/L Chloride (98-107) mmol/L Carbon Dioxide (21-32) mmol/L POC Total CO2 (24-31) mmol/L Anion Gap (3-11) POC Anion Gap (16-25) mmol/L POC BUN (7-18) mg/dl BUN (6-23) mg/dl Creatinine (0.6-1.4) mg/dl POC Creatinine (0.6-1.3) mg/dl Est Cr Clr Drug Dosing ml/min Est GFR ( Amer) ml/min Est GFR (Non-Af Amer) ml/min BUN/Creatinine Ratio (10-20) Glucose (70-99(Fasting)) mg/dl POC Glucose (70-99) mg/dl POC Glucose (other) (70-99) mg/dl Calcium (8.5-10.1) mg/dl POC Ioniz Calcium Rochelle (1.12-1.32) mmol/l Magnesium (1.7-2.4) mg/dl Total Bilirubin (0.2-1.0) mg/dl AST (13-39) U/L ALT (7-52) U/L Alkaline Phosphatase (34-104) U/L Total Protein (6.0-8.3) gm/dl Albumin (3.4-5.0) gm/dl Globulin (2.5-4.0) gm/dl Albumin/Globulin Ratio (0.9-2) SARS-CoV-2, RNA, NAAT NEGATIVE (NEGATIVE) Administered Medications Discontinued Medications Ioversol (Optiray 320 500ml) 120 ml IV ONCE ONE Stop: 05/28/22 09:11 Last Admin: 05/28/22 09:10 Dose: 120 ml Documented By: MAXIMILIAN Imaging Data Radiologist's Impression: Head CT 05/28/22 08:30 CT OF THE HEAD WITHOUT CONTRAST CLINICAL HISTORY: Stroke alert. COMPARISON STUDY: MRI of the brain July 08, 2020. Head CT and CTA of the head January 15, 2019. CT DOSE: 691.05 mGy.cm TECHNIQUE: Helical axial images of the head were obtained without IV contrast. Automated exposure control was utilized for the study. A dose lowering technique was utilized adhering to the principles of ALARA. FINDINGS: No acute intracranial hemorrhage, midline shift or mass effect is p resent. White matter hypodensities are unchanged and favor small vessel disease. The ventricular system is unremarkable. The basal cisterns are patent. No extra- axial collections are present. There are no findings to suggest acute dural sinus thrombosis or acute territorial infarct. No significant calvarial abnormalities are present. Trace fluid within the right mastoid air cells is unchanged. IMPRESSION: No acute intracranial findings. ACT 112: Negative or not required by law. Electronically signed by: Sami Tinajero M.D. 05/28/2022 9:13 AM Head CTA 05/28/22 08:59 CTA ANGIOGRAPHY OF THE HEAD CLINICAL HISTORY: Expressive aphasia. COMPARISON STUDY: CTA of the head January 15, 2019. TECHNIQUE: Helical axial images of the head were obtained following uneventful intravenous administration of 120 cc of Optiray. Sagittal and coronal reconstructions were viewed as well as maximal intensity projections on an independent 3-D workstation. Automated exposure control was utilized for the study. A dose lowering technique was utilized adhering to the principles of ALARA. CT DOSE: 615.76 mGy.cm FINDINGS: Please note that the neck CTA will be reported separately. Moderate plaque is noted within the bilateral cavernous carotids without stenosis. No intracranial aneurysm. The right M1, M2, A1 and A2 segments are patent. The left A1 and A2 segments are patent. Left M1 segment is patent. Irregularity with suspected multifocal stenoses of a sylvian branch of the left middle cerebral artery is noted. This is new since CT of January 15, 2019 impression on axial image 136 of 266. There may be a short segment occlusion with distal reconstitution. This vessel is diminutive. Otherwise, intracranial vessels appear unchanged. Posterior circulation is intact. IMPRESSION: 1. Diminutive irregular sylvian branch of the left middle cerebral artery, a new finding since CTA of January 15, 2019. Severe stenosis versus short segment occlusion with distal reconstitution. The findings could be correlated with evidence for a left MCA territory infarct. 2. Otherwise, no change in appearance of the intracranial vessels. ACT 112: Negative or not required by law. Electronically signed by: Sami Tinajero M.D. 05/28/2022 10:01 AM Neck CTA 05/28/22 09:00 NECK CTA HISTORY: Speech and memory difficulty. Assess for stroke. TECHNIQUE: Multiaxial CT images of the neck were performed following the intravenous administration of contrast to evaluate the major cervical vessels. Maximum intensity projection images were also obtained. All measurements were calculated based on NASCET criteria. A dose lowering technique was utilized adhering to the principles of ALARA. COMPARISON STUDY: Neck CTA 01/15/2019. FINDINGS: The aortic arch and proximal great vessels are widely patent. There is no significant stenosis or occlusion identified within the bilateral common carotid, internal carotid, or vertebral arteries. 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 IMPRESSION: 1. No significant stenosis or occlusion within the carotid or vertebral arteries. 2. 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 ACT 112: Negative or not required by law. Electronically signed by: Guillermo Mccollum M.D. 05/28/2022 9:38 AM Chest X-Ray 05/28/22 10:00 XR chest 1V portable HISTORY: Stroke symptoms. COMPARISON: Chest and abdominal series 06/14/2020. FINDINGS: No pneumothorax. The heart is mildly enlarged. There is progressive interstitial/vascular thickening consistent with mild pulmonary edema. Right basilar linear densities favor subsegmental atelectasis. Otherwise, no focal lung consolidations to suggest a pneumonia. Trace bilateral pleural effusions are noted. IMPRESSION: Cardiomegaly with mild interstitial pulmonary edema and trace bilateral pleural effusions. ACT 112: Negative or not required by law. Electronically signed by: Guillermo Mccollum M.D. 05/28/2022 10:27 AM Discharge Plan Visit Data Chief Complaint: Stroke/CVA Symptoms Stated Complaint: STROKE SYMPTOMS, SLURRED SPEECH, BALANCE, ED Provider: Jason Dee Discharge Problem: Expressive aphasia Patient Disposition: Admitted As Inpatient Forms Stand Alone Forms: My [facility] Prescriptions Prescriptions: No Action Xarelto 20 mg tablet 20 mg PO QAM Qty: 90 3RF simvastatin 40 mg tablet 40 mg PO PM Qty: 30 5RF glipizide 2.5 mg tablet extended release 24 hr 2.5 mg PO QAM Qty: 90 3RF glipizide 5 mg tablet extended release 24 hr 5 mg PO QAM Qty: 90 3RF metformin 500 mg tablet extended release 24 hr 500 mg PO QPM Qty: 90 3RF metoprolol succinate 100 mg tablet extended release 24 hr 100 mg PO QAM Qty: 30 5RF diltiazem HCl [Cartia XT] 120 mg capsule,extended release 24hr 120 mg PO DAILY Qty: 90 3RF lisinopril 2.5 mg tablet 2.5 mg PO DAILY Qty: 90 3RF Jardiance 10 mg tablet 10 mg PO DAILY Qty: 30 2RF pantoprazole 40 mg tablet,delayed release (DR/EC) 40 mg PO DAILY Qty: 90 3RF Benefiber Clear SF (dextrin) 3 gram/3.5 gram powder in packet 1.5 g PO DAILY Rx Instructions: mix into at least 4 oz water or juice before administering mecobalamin (vitamin B12) 1,000 mcg tablet,chewable 1,000 mcg PO QPM Centrum Silver Men 300-600-300 mcg tablet 1 tab PO QAM cholecalciferol (vitamin D3) 50 mcg (2,000 unit) capsule 50 mcg PO QAM levothyroxine 50 mcg tablet 50 mcg PO QAM Qty: 90 1RF Gaviscon 95-358 mg/15 mL suspension 15 ml PO DAILY PRN (Reason: HEARTBURN/INDIGESTION) prednisone 10 mg tablets,dose pack 10 mg PO .COMPLEX Qty: 21 0RF Rx Instructions: STARTED 05/27/22; 10 mg PO as directed; Referrals Referrals: Romulo Barker DO [Primary Care Provider] -
[2022-05-28 08:50] LABS: Hematocrit (blood only) 41.8 % (40.1-51.0); Hemoglobin 13.1 g/dl (14.0-18.0); Mean Corpuscular Hemoglobin 25.9 pg (25.0-34.0); Mean Corpuscular Hgb Conc 31.3 g/dL (32.0-36.0); Mean Corpuscular Volume 82.6 fL (80.0-100.0); Mean Platelet Volume 9.3 fL (9.4-12.4); Platelet Count 246 K/uL (130-400); RDW Coefficient of Variation 16.1 % (11.5-14.5); RDW Standard Deviation 47.8 fL (36.4-46.3); Red Blood Count 5.06 M/uL (4.63-6.08); White Blood Count 10.68 K/ul (4.8-10.8)
[2022-05-28 09:01] LABS: iSTAT Creatinine 1.3 mg/dl (0.6-1.3); iSTAT Hemoglobin 14.6 g/dl (14.0-18.0); iSTAT Ionized Calcium 1.2 mmol/l (1.12-1.32); iSTAT Potassium 4.7 mmol/L (3.3-5.0)
[2022-05-28 09:04] LABS: INR 1.1 (0.9-1.1); Partial Thromboplastin Ratio 1.2; Partial Thromboplastin Time 32.9 Seconds (21.0-31.0); Prothrombin Time 12.1 Seconds (9.0-12.0)
[2022-05-28] MEDS ORDERED: OPTIRAY 320 500ml IV ONE (09:10)
[2022-05-28 09:12] LABS: Albumin Globulin Ratio 1.6 (0.9-2); Albumin Level 4.9 gm/dl (3.4-5.0); BUN Creatinine Ratio 13.1 (10-20); Bilirubin,Total 1.3 mg/dl (0.2-1.0); Calcium 10.3 mg/dl (8.5-10.1); Creatinine Clr Calc Pharmacy 39.2 ml/min; Est GFR (African American) 50.9 ml/min; Est GFR (Non-African American) 43.9 ml/min; Globulin 3.1 gm/dl (2.5-4.0); Magnesium 2.2 mg/dl (1.7-2.4); Potassium 4.7 mmol/L (3.5-5.1)
--- NOTE | 2022-05-28 09:14 | CT Scan Report ---
CT OF THE HEAD WITHOUT CONTRAST CLINICAL HISTORY: Stroke alert. COMPARISON STUDY: MRI of the brain July 08, 2020. Head CT and CTA of the head January 15, 2019. CT DOSE: 691.05 mGy.cm TECHNIQUE: Helical axial images of the head were obtained without IV contrast. Automated exposure con trol was utilized for the study. A dose lowering technique was utilized adhering to the principles o f ALARA. FINDINGS: No acute intracranial hemorrhage, midline shift or mass effect is present. White matter hyp odensities are unchanged and favor small vessel disease. The ventricular system is unremarkable. The basal cisterns are patent. No extra-axial collections are present. There are no findings to suggest a cute dural sinus thrombosis or acute territorial infarct. No significant calvarial abnormalities are present. Trace fluid within the right mastoid air cells is unchanged. IMPRESSION: No acute intracranial findings. ACT 112: Negative or not required by law. Electronically signed by: Sami Tinajero M.D. 05/28/2022 9:13 AM
--- NOTE | 2022-05-28 09:40 | CT Scan Report ---
NECK CTA HISTORY: Speech and memory difficulty. Assess for stroke. TECHNIQUE: Multiaxial CT images of the neck were performed following the intravenous administration o f contrast to evaluate the major cervical vessels. Maximum intensity projection images were also obta ined. All measurements were calculated based on NASCET criteria. A dose lowering technique was utili zed adhering to the principles of ALARA. COMPARISON STUDY: Neck CTA 01/15/2019. FINDINGS: The aortic arch and proximal great vessels are widely patent. There is no significant sten osis or occlusion identified within the bilateral common carotid, internal carotid, or vertebral tiara endy. 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 IMPRESSION: 1. No significant stenosis or occlusion within the carotid or vertebral arteries. 2. 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 ACT 112: Negative or not required by law. Electronically signed by: Guillermo Mccollum M.D. 05/28/2022 9:38 AM
[2022-05-28 09:44] LABS: Base Excess VBG -2.1 mEq/L; HCO3 VBG 19 mmol/L; Oxygen Saturation VBG < 60.0 %; PCO2 VBG 24 mmHg (38-50); PO2 VBG 30 mmHg; pH VBG 7.51 (7.36-7.41)
--- NOTE | 2022-05-28 10:02 | CT Scan Report ---
CTA ANGIOGRAPHY OF THE HEAD CLINICAL HISTORY: Expressive aphasia. COMPARISON STUDY: CTA of the head January 15, 2019. TECHNIQUE: Helical axial images of the head were obtained following uneventful intravenous administr ation of 120 cc of Optiray. Sagittal and coronal reconstructions were viewed as well as maximal inten sity projections on an independent 3-D workstation. Automated exposure control was utilized for the study. A dose lowering technique was utilized adhering to the principles of ALARA. CT DOSE: 615.76 mGy.cm FINDINGS: Please note that the neck CTA will be reported separately. Moderate plaque is noted within the bilateral cavernous carotids without stenosis. No intracranial aneurysm. The right M1, M2, A1 and A2 segments are patent. The left A1 and A2 segments are patent. Left M1 segment is patent. Irregular ity with suspected multifocal stenoses of a sylvian branch of the left middle cerebral artery is note d. This is new since CT of January 15, 2019 impression on axial image 136 of 266. There may be a short se gment occlusion with distal reconstitution. This vessel is diminutive. Otherwise, intracranial vessel s appear unchanged. Posterior circulation is intact. IMPRESSION: 1. Diminutive irregular sylvian branch of the left middle cerebral artery, a new finding since CTA of January 15, 2019. Severe stenosis versus short segment occlusion with distal reconstitution. The finding s could be correlated with evidence for a left MCA territory infarct. 2. Otherwise, no change in appearance of the intracranial vessels. ACT 112: Negative or not required by law. Electronically signed by: Sami Tinajero M.D. 05/28/2022 10:01 AM
--- NOTE | 2022-05-28 10:28 | XRay Report ---
XR chest 1V portable HISTORY: Stroke symptoms. COMPARISON: Chest and abdominal series 06/14/2020. FINDINGS: No pneumothorax. The heart is mildly enlarged. There is progressive interstitial/vascular t hickening consistent with mild pulmonary edema. Right basilar linear densities favor subsegmental ate lectasis. Otherwise, no focal lung consolidations to suggest a pneumonia. Trace bilateral pleural eff usions are noted. IMPRESSION: Cardiomegaly with mild interstitial pulmonary edema and trace bilateral pleural effusions. ACT 112: Negative or not required by law. Electronically signed by: Guillermo Mccollum M.D. 05/28/2022 10:27 AM
--- NOTE | 2022-05-28 10:37 | History & Physical Report ---
Date of Service May 28, 2022 Assessment & Plan (1) Expressive aphasia: Plan: - As above. Speech to eval and treat. (2) Respiratory alkalosis: Plan: - VBG: pH 7.51, CO2 24, bicarb 19. AG 17. - Patient transiently tachycardic on arrival afib 120s, but no hypoxic on RA. - No reent ingestions of chemicals. Feels his appetite is good, eats 3 meals/day. Unlikely starvation ketosis. Per son, patient was breathing normally at home, however in route to hospital got very anxious and respiratory rate did increase. This is very typical for him when he comes to hospitals. Therefore, likely anxiety driving respiratory alkalosis. - We will recheck a BMP. Serum osm and lactate were added onto labs drawn. (3) Atrial fibrillation: Plan: - Remains in afib in ED. HR < 110. - Continue Xarelto, no missed doses. - Continue metoprolol, diltiazem. (4) Diabetes mellitus, type 2: Plan: - Hold home oral agents. - Weight bases basal/bolus + accounting for PO steroid use for gout flare: Lantus 14 u BID, SSI with CF 30, CR 9. - A1c in AM. (5) CKD (chronic kidney disease): Plan: - Cr 1.45, at baseline. - Renally dose medications as able, avoid nephrotoxins. - Monitor on BMP. (6) Hypertension: Plan: - Continue lisinopril. (7) Anemia: Plan: - Hgb 13.1, stable and at baseline. - Monitor. (8) Hyperlipidemia: Plan: - Continue simvastatin 0 qHS, lipid panel in AM as part of stroke w/u. (9) Hypothyroidism: Plan: - Continue Synthroid. (10) B12 deficiency: Plan: - Continue B12 supplementation. (11) GERD (gastroesophageal reflux disease): Plan: - Continue Protonix, Gaviscon. (12) Gout: Plan: -Acute flare, started on oral prednisone yesterday. (13) Classic migraine: Plan: - History of such with aphasia as presenting symptom, however no headache today. Symptoms more likely due to acute CVA. Plan - OBS on med/tele. - SCDs, continue Xarelto for VTE ppx/afib. - DNR/DNI. History of Present Illness Chief Complaint: slurred speech since last evening Primary Care Provider: Romulo Barker DO Amilcar Morin is an 86-year-old male with past medical history significant for atrial fibrillation, hypertension, DM2, hyperlipidemia, hypothyroidism, atypical migraine headaches, GERD, B12 deficiency, and gout flare he is who presents today with slurred speech. Beginning last evening around 8:30 PM, patient's noticed his speech was very slurred and that he was having difficulty expressing himself. Of note, patient does have a history of migraines and this is typically how he presents with such but does not feel like he has a migraine today. He has no other deficits, denies numbness/tingling/weakness to any extremities, visual changes, headache, nausea, vomiting. He is able to interpret information and tries to answer questions appropriately but has difficulty beyond one word answers. No other complaints, no missed doses of medications. He reports a history of mini strokes and believes he may have had a major stroke before. Again, history limited due to expressive aphasia. Patient arrived via private vehicle and was made a stroke alert upon arrival. Head CT is unremarkable, head CT shows an irregular sylvian branch of the left MCA which is new finding compared to CTA from 2019. There is severe stenosis versus short segment occlusion with distal reconstitution which may be correlated with left MCA infarct. Otherwise no change in intracranial vessels. 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 Labs otherwise significant for bicarb 19, AG 17, glucose 268. Creatinine is elevated at 1.45, compared to recent labs over the past year and a half, this seems to be about his baseline. His T bili is mildly elevated at 1.3. Allergies Allergy/AdvReac Type Severity Reaction Status Date / Time tetanus toxoid, adsorbed Allergy Intermediate BLISTERS Verified 05/28/22 10:56 AND EYES SWELLING hydromorphone AdvReac Intermediate HALLUCINATI Verified 05/28/22 10:56 ONS lorazepam AdvReac Intermediate HALLUCINATI Verified 05/28/22 10:56 ONS Home Medications Medication Instructions Recorded Confirmed Type mecobalamin (vitamin B12) 1,000 1,000 mcg PO QPM 07/23/20 05/28/22 History mcg chewable tablet cholecalciferol (vitamin D3) 50 50 mcg PO QAM 12/10/20 05/28/22 History mcg (2,000 unit) capsule wgwlfyiz-xaf-caxfp acid 300 1 tab PO QAM 12/10/20 05/28/22 History mcg-lycopene 600 mcg-lutein 300 mcg tablet (Centrum Silver Men) pantoprazole 40 mg tablet,delayed 40 mg PO DAILY #90 tabs 10/22/21 05/28/22 Rx release rivaroxaban 20 mg tablet (Xarelto) 20 mg PO QAM #90 tabs 12/01/21 05/28/22 Rx levothyroxine 50 mcg tablet 50 mcg PO QAM #90 tabs 12/18/21 05/28/22 Rx simvastatin 40 mg tablet 40 mg PO PM #30 tabs 12/26/21 05/28/22 Rx glipizide 2.5 mg tablet, extended 2.5 mg PO QAM #90 tabs 01/21/22 05/28/22 Rx release 24 hr glipizide 5 mg tablet, extended 5 mg PO QAM #90 tabs 01/22/22 05/28/22 Rx release 24 hr metformin 500 mg tablet,extended 500 mg PO QPM #90 tabs 03/23/22 05/28/22 Rx release 24 hr metoprolol succinate 100 mg 100 mg PO QAM #30 tabs 03/30/22 05/28/22 Rx tablet,extended release 24 hr diltiazem HCl 120 mg 120 mg PO DAILY #90 caps 04/02/22 05/28/22 Rx capsule,extended release 24 hr (Cartia XT) lisinopril 2.5 mg tablet 2.5 mg PO DAILY #90 tabs 04/22/22 05/28/22 Rx empagliflozin 10 mg tablet 10 mg PO DAILY #30 tabs 04/28/22 05/28/22 Rx (Jardiance) aluminum hydrox-magnesium carb 95 15 ml PO DAILY PRN 05/27/22 05/28/22 History mg-358 mg/15 mL oral suspension HEARTBURN/INDIGESTION (Gaviscon) prednisone 10 mg tablets in a dose 10 mg PO .COMPLEX #21 ea 05/27/22 05/28/22 Rx pack wheat dextrin 3 gram/3.5 gram oral 1.5 g PO DAILY 05/27/22 05/28/22 History powder packet (Benefiber Clear Sugar Free(dextrin)) Past Med/Surg History Medical History Atrial fibrillation B12 deficiency Basal cell carcinoma (BCC) of face Classic migraine Diabetes mellitus, type 2 Hiatal hernia History of anesthesia reaction History of yellow fever Hyperlipidemia Hypertension Hypothyroidism Mitral regurgitation On anticoagulant therapy Osteoarthritis Rotator cuff tear Small bowel obstruction Squamous cell carcinoma skin of arm Transient ischemic attack (TIA) Surgical History H/O hernia repair History of bowel resection History of cardioversion History of colonoscopy History of colostomy History of esophagogastroduodenoscopy (EGD) History of phacoemulsification of cataract of both eyes with intraocular lens implantation History of root canal procedure History of tonsillectomy and adenoidectomy History of total right hip replacement History of wisdom tooth extraction Hx of abdominal surgery Hx of vasectomy Status post Mohs surgery for basal cell carcinoma Family History Father Hypertension Diabetes Mother Breast cancer Ovarian cancer Brother Colorectal cancer Other Coronary heart disease No family history of adverse response to anesthesia Denies family history of Prostate cancer Crohn's disease Myocardial infarction Lung cancer Inflammatory bowel disease Social History Smoking Status: Unknown if ever smoked Tobacco Type: Pipe Age Started Using Tobacco: 22; Age Quit Using Tobacco: 52; Second Hand Exposure: No; Do You Dip or Chew Tobacco: No; Tobacco Cessation Education Requested by Patient: No Hx Alcohol Use: No Hx Substance Use: No Preferred Language: Thai Communication Ability: Effective Visual Impairment: Diminished Hearing Ability: Normal Photo Mask Pattern Generator Required: No Beliefs That Will Affect Care: None marital status: Current Living Situation: Spouse current occupational 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[employer], [employer] How many Children do You have: 1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 Feels Safe at Home: Yes Safety Concerns: Feels Safe At This Time Childhood Exposure to Second-Hand Smoke: Yes (father smoked in home ) caffeine: Yes (drinks coffee daily about half a cup ) Dental Care, Regularly: Yes Physical Activity Frequency: 3-4 Times per Week Physical Activity Frequency Comment: 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 Seatbelt Use: always Sunscreen Use: No (says he does cover up well ) Do you think of yourself as: straight/heterosexual Assistive Devices: Glasses Review of Systems Review of Systems: Constitutional: No fever/chills, weakness, fatigue, myalgias, anorexia, night sweats Eyes: No diplopia, no worsening or blurred vision ENT: normal hearing, no trouble swallowing Respiratory: No cough, sputum, dyspnea at rest or on exertion Cardiovascular: No chest pain, tightness or palpitations Abdomen: No pain, nausea, vomiting, diarrhea or constipation : Denies dysuria, hematuria, increased urgency/frequency, urinary retention Musculoskeletal: No joint pain, calf pain, swelling Neurologic: difficulty speaking since 8PM last night; No weakness, numbness/tingling, or balance problems Psychiatric: No anxiety or depression Skin: No rash or itch Physical Exam Physical Exam: General: awake, alert, no apparent distress Head: Normocephalic, atraumatic ENT: PERRL, EOMI, no pharyngeal exudate, mucous membranes moist Chest: Clear to auscultation, on room air, no adventitious breath sounds Cardiac: irregularly irregular rhythm, borderline tachycardic, no murmur, no JVD, normal peripheral pulses, good capillary refill Abdominal: NABS x 4 quadrants, soft, nontender to palpation, no rebound, guarding or tenderness Extremities: Normal inspection, no peripheral edema or erythema, calfs nontender to palpation Psych: Normal mood and affect Neuro: speech is clear but nonsensical and consistent with expressive aphasia; AAO x 3, strength intact bilaterally and rated 5/5, no motor deficits, speech is clear, no peripheral sensory deficits Skin: no rash or erythema Results & Data Results & Data ([facility]) Vital Signs (Past 12 Hours) Vital Signs Temp Pulse Pulse Resp BP BP Pulse Ox 05/28/22 10:15 85 17 100 05/28/22 10:15 141/86 H 05/28/22 10:00 93 H 26 H 100 05/28/22 10:00 132/75 05/28/22 09:45 98 H 16 96 05/28/22 09:45 142/106 H 05/28/22 09:30 84 23 99 05/28/22 09:30 132/84 05/28/22 09:15 86 31 H 100 05/28/22 09:15 130/99 05/28/22 09:00 94 H 25 H 97 05/28/22 09:00 139/92 05/28/22 08:48 88 33 H 99 05/28/22 08:48 146/94 H 05/28/22 08:47 101 H 98 05/28/22 08:59 05/28/22 08:48 99 05/28/22 08:48 05/28/22 08:36 118 H 29 H 140/110 H 05/28/22 08:23 36.4 C L 122 H 24 148/94 H 100 O2 Del Method 05/28/22 10:15 05/28/22 10:15 05/28/22 10:00 05/28/22 10:00 05/28/22 09:45 Room Air 05/28/22 09:45 05/28/22 09:30 Room Air 05/28/22 09:30 05/28/22 09:15 Room Air 05/28/22 09:15 05/28/22 09:00 Room Air 05/28/22 09:00 05/28/22 08:48 Room Air 05/28/22 08:48 05/28/22 08:47 Room Air 05/28/22 08:59 Room Air 05/28/22 08:48 Room Air 05/28/22 08:48 Room Air 05/28/22 08:36 Room Air 05/28/22 08:23 Room Air Laboratory Results Abnormal lab results 05/28/22 05/28/22 05/28/22 Range/Units 08:34 08:34 08:34 Hgb 13.1 L (14.0-18.0) g/dl MCHC 31.3 L (32.0-36.0) g/dL RDW Std Deviation 47.8 H (36.4-46.3) fL RDW Coeff of Parisa 16.1 H (11.5-14.5) % MPV 9.3 L (9.4-12.4) fL PT 12.1 H (9.0-12.0) Seconds APTT 32.9 H (21.0-31.0) Seconds VBG pH (7.36-7.41) VBG pCO2 (38-50) mmHg Carbon Dioxide 19 L (21-32) mmol/L POC Total CO2 (24-31) mmol/L Anion Gap 17 H (3-11) Creatinine 1.45 H (0.6-1.4) mg/dl Glucose 238 H (70-99(Fasting)) mg/dl POC Glucose (70-99) mg/dl POC Glucose (other) (70-99) mg/dl Calcium 10.3 H (8.5-10.1) mg/dl Total Bilirubin 1.3 H (0.2-1.0) mg/dl 05/28/22 05/28/22 05/28/22 Range/Units 08:34 08:49 09:27 Hgb (14.0-18.0) g/dl MCHC (32.0-36.0) g/dL RDW Std Deviation (36.4-46.3) fL RDW Coeff of Parisa (11.5-14.5) % MPV (9.4-12.4) fL PT (9.0-12.0) Seconds APTT (21.0-31.0) Seconds VBG pH 7.51 H (7.36-7.41) VBG pCO2 24 L (38-50) mmHg Carbon Dioxide (21-32) mmol/L POC Total CO2 17 L (24-31) mmol/L Anion Gap (3-11) Creatinine (0.6-1.4) mg/dl Glucose (70-99(Fasting)) mg/dl POC Glucose 260 H (70-99) mg/dl POC Glucose (other) 251 H (70-99) mg/dl Calcium (8.5-10.1) mg/dl Total Bilirubin (0.2-1.0) mg/dl Diagnostic Findings Head CT 05/28/22 08:30 CT OF THE HEAD WITHOUT CONTRAST CLINICAL HISTORY: Stroke alert. COMPARISON STUDY: MRI of the brain July 08, 2020. Head CT and CTA of the head January 15, 2019. CT DOSE: 691.05 mGy.cm TECHNIQUE: Helical axial images of the head were obtained without IV contrast. Automated exposure control was utilized for the study. A dose lowering technique was utilized adhering to the principles of ALARA. FINDINGS: No acute intracranial hemorrhage, midline shift or mass effect is present. White matter hypodensities are unchanged and favor small vessel disease. The ventricular system is unremarkable. The basal cisterns are patent. No extra-axial collections are present. There are no findings to suggest acute dural sinus thrombosis or acute territorial infarct. No significant calvarial abnormalities are present. Trace fluid within the right mastoid air cells is unchanged. IMPRESSION: No acute intracranial findings. ACT 112: Negative or not required by law. Electronically signed by: Sami Tinajero M.D. 05/28/2022 9:13 AM Head CTA 05/28/22 08:59 CTA ANGIOGRAPHY OF THE HEAD CLINICAL HISTORY: Expressive aphasia. COMPARISON STUDY: CTA of the head January 15, 2019. TECHNIQUE: Helical axial images of the head were obtained following uneventful intravenous administration of 120 cc of Optiray. Sagittal and coronal reconstructions were viewed as well as maximal intensity projections on an independent 3-D workstation. Automated exposure control was utilized for the study. A dose lowering technique was utilized adhering to the principles of ALARA. CT DOSE: 615.76 mGy.cm FINDINGS: Please note that the neck CTA will be reported separately. Moderate plaque is noted within the bilateral cavernous carotids without stenosis. No intracranial aneurysm. The right M1, M2, A1 and A2 segments are patent. The left A1 and A2 segments are patent. Left M1 segment is patent. Irregularity with suspected multifocal stenoses of a sylvian branch of the left middle cerebral artery is noted. This is new since CT of January 15, 2019 impression on axial image 136 of 266. There may be a short segment occlusion with distal reconstitution. This vessel is diminutive. Otherwise, intracranial vessels appear unchanged. Posterior circulation is intact. IMPRESSION: 1. Diminutive irregular sylvian branch of the left middle cerebral artery, a new finding since CTA of January 15, 2019. Severe stenosis versus short segment occlusion with distal reconstitution. The findings could be correlated with evidence for a left MCA territory infarct. 2. Otherwise, no change in appearance of the intracranial vessels. ACT 112: Negative or not required by law. Electronically signed by: Sami Tinajero M.D. 05/28/2022 10:01 AM Neck CTA 05/28/22 09:00 NECK CTA HISTORY: Speech and memory difficulty. Assess for stroke. TECHNIQUE: Multiaxial CT images of the neck were performed following the intravenous administration of contrast to evaluate the major cervical vessels. Maximum intensity projection images were also obtained. All measurements were calculated based on NASCET criteria. A dose lowering technique was utilized adhering to the principles of ALARA. COMPARISON STUDY: Neck CTA 01/15/2019. FINDINGS: The aortic arch and proximal great vessels are widely patent. There is no significant stenosis or occlusion identified within the bilateral common carotid, internal carotid, or vertebral arteries. 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 IMPRESSION: 1. No significant stenosis or occlusion within the carotid or vertebral arteries. 2. 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 ACT 112: Negative or not required by law. Electronically signed by: Guillermo Mccollum M.D. 05/28/2022 9:38 AM Chest X-Ray 05/28/22 10:00 XR chest 1V portable HISTORY: Stroke symptoms. COMPARISON: Chest and abdominal series 06/14/2020. FINDINGS: No pneumothorax. The heart is mildly enlarged. There is progressive interstitial/vascular thickening consistent with mild pulmonary edema. Right basilar linear densities favor subsegmental atelectasis. Otherwise, no focal lung consolidations to suggest a pneumonia. Trace bilateral pleural effusions are noted. IMPRESSION: Cardiomegaly with mild interstitial pulmonary edema and trace bilateral pleural effusions. ACT 112: Negative or not required by law. Electronically signed by: Guillermo Mccollum M.D. 05/28/2022 10:27 AM ECG Additional Comments: Atrial fibrillation with rapid ventricular response with premature ventricular or aberrantly conducted complexes Indeterminate axis Right bundle branch block Cannot rule out Inferior infarct , age undetermined Abnormal ECG When compared with ECG of 16-JAN-2019 07:08, QRS axis Shifted left. Code Status & VTE Plan Code Status DNR/DNI. Supervising Physician Co-Signing Physician Notes Patient seen and examined, chart reviewed, case discussed with Clarisa Emery PA-C and I agree with the assessment and plan as above except as otherwise noted Labs and images reviewed Amilcar Morin is an 86-year-old male with past medical history of atrial fibrillation on Xarelto, hypertension, anemia, peripheral neuropathy, hypothyroidism, mitral regurgitation, vitamin B12 deficiency, gout, migraine, and CHLOE who presented with expressive aphasia and dysarthria which began evening prior to ER evaluation but which persisted overnight prompting his family to have him brought to the ER for stroke evaluation. Last known normal was prior to 2030 hrs. 05/27/2022,12+ hours prior to evaluation. TNKase not indicated based on last known normal. irir, clear at bedside. +expressive aphasia at bedside. ER lab review: No leukocytosis, hemoglobin 13.1 (baseline ~12.714), INR 1.1, VB.51, PCO2 24, PO2 30, HCO3 19 consistent with respiratory alkalosis Sodium 139, potassium 4.7, CO2 19, anion gap 17 Creatinine baseline 1.31.5, admitting creatinine 1.45 BSG 238 on admission T bili 1.3, no transaminitis Increased AG: Appears volume overloaded not contracted on CXR and clinically, no hyponatremia, albumin 4.9/normal. Alkalosis? Respiratory with underlying secondary metabolic, respiratory rate is 17 at bedside. Dysarthria, expressive aphasia - Hx of migraines, deferred initial eval - No receptive aphasia, no focal deficits other than expressive aphasia. - Dr. Sergio Martinez Telestroke: Load with aspirin, obtain MRI, CThead: No acute findings CTAHead:1. Diminutive irregular sylvian branch of the left middle cerebral artery, a new finding since CTA of January 15, 2019. Severe stenosis versus short segment occlusion with distal reconstitution. The findings could be correlated with evidence for a left MCA territory infarct. 2. Otherwise, no change in appearance of the intracranial vessels. CTA-Neck: 1. No significant stenosis or occlusion within the carotid or vertebral arteries. 2. 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 - CXR: Cardiomegaly with mild interstitial pulmonary edema, trace bilateral pleural effusions A. 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 Lisinopril 2.5 temporarily held? Previously azotemia versus NICOLLE Continue diltiazem 120 mg daily Hyperlipidemia Continue simvastatin 40 mg Lipid panel pending, based on results recommending switching to either atorvastatin 40 mg or 80 mg Hypothyroidism TSH/T4 pending Continue home Synthroid 50 mcg daily PG Care Time/CCT Total # of Minutes Spent Total Time Spent with Patient: Total time spent is greater than 50% in coordination of care (as documented) at patient's floor/unit and/or counseling patient: Coding Level of Care Code INT OBSERVATION CARE 70M LVL 3 Diagnoses Expressive aphasia R47.01 Respiratory alkalosis E87.3 Atrial fibrillation I48.91 Diabetes mellitus, type 2 E11.9 CKD (chronic kidney disease) N18.9 Hypertension I10 Anemia D64.9 Hyperlipidemia E78.5 Hypothyroidism E03.9 B12 deficiency E53.8 GERD (gastroesophageal reflux disease) K21.9 Gout M10.9 Classic migraine G43.109
[2022-05-28] MEDS ORDERED: ASPIRIN CHEW 324 MG PO STA (10:43)
[2022-05-28] MEDS ORDERED: POLYETHYLENE (MIRALAX) 17 GM PACK PO PRN (13:11)
[2022-05-28] MEDS ORDERED: DEXTROSE 50% 50 ML SYRINGE IV PRN (13:11)
[2022-05-28] MEDS ORDERED: ALUMINUM/MAGNESIUM SUSP 30 ML UDC PO PRN (13:11)
[2022-05-28] MEDS ORDERED: GLUCOSE 40% GEL 15 GM TUBE PO PRN (13:11)
[2022-05-28] MEDS ORDERED: DC ALL PREVIOUSLY ORDERED DIABETES MEDS ONE (13:11)
[2022-05-28] MEDS ORDERED: GLUCOSE 10 TAB/TUBE PO PRN (13:11)
[2022-05-28] MEDS ORDERED: CARBOHYDRATES FOR HYPOGLYCEMIA PO PRN (13:11)
[2022-05-28] MEDS ORDERED: PHARMACIST DISCHARGE MED REC CONSULT PRN (13:11)
[2022-05-28] MEDS ORDERED: ACETAMINOPHEN 325 MG TAB PO PRN (13:11)
[2022-05-28] MEDS ORDERED: GLUCAGON FOR INJ 1 MG VIAL SQ PRN (13:11)
[2022-05-28] MEDS ORDERED: ONDANSETRON INJ 2 MG/ML 2 ML VIAL IV PRN (13:11)
[2022-05-28 13:37] LABS: Calcium 9.3 mg/dl (8.5-10.1); Creatinine Clr Calc Pharmacy 43.3 ml/min; Est GFR (African American) 57.5 ml/min; Est GFR (Non-African American) 49.6 ml/min; Potassium 3.8 mmol/L (3.5-5.1)
[2022-05-28] MEDS: INSULIN ASPART PER UNIT SC SCH ×2 (14:13→18:22)
--- NOTE | 2022-05-28 16:28 | Magnetic Resonance Report ---
MR brain wo con HISTORY: 86 years-old Male CVA acute strokelike symptoms with altered mental status COMPARISON: Head CT 05/28/2022, brain MRI 06/07/2020. TECHNIQUE: Multiplanar multisequence MRI of the brain was obtained without the use of IV contrast. FINDINGS: Pilot Can Router localizer images demonstrate no gross extracranial abnormality. The study is motion degraded. T here is an ill-defined area of restricted diffusion within the left parietal lobe measuring 3.2 x 3.1 cm on images 15 and 16 of series 4. This demonstrates mildly decreased signal on the ADC map with mi ldly increased T2/FLAIR signal. No additional areas of restricted diffusion identified. The midline s tructures appear unremarkable. Partially empty sella. Degenerative changes of the imaged cervical spi ne. Low-lying cerebellar tonsils. There is no acute intracranial hemorrhage, midline shift, abnormal extra-axial collection, abscess le ss or intracranial mass identified. Involutional changes. Mild T2/FLAIR hyperintense foci throughout the white matter suggest chronic microvascular ischemic disease. Cerebral venous sinuses and major arterial flow voids appear to be patent. Small right mastoid effusi on. Minimal mucosal thickening of the paranasal sinuses. Prior bilateral lens repair. The skull and s oft tissues are unremarkable. IMPRESSION: 1. Acute left parietal lobe infarct measures 3.2 x 3.1 cm. 2. No acute intracranial hemorrhage or midline shift. 3. Involutional changes with mild chronic microvascular ischemic disease. ACT 112: Negative or not required by law. The above report was generated using voice recognition software. It may contain grammatical, syntax o r spelling errors. Electronically signed by: Frederic Rodriguez M.D. 05/28/2022 4:27 PM
[2022-05-28] MEDS ORDERED: FUROSEMIDE 40 MG/4 ML VIAL IV ONE (17:21)
--- NOTE | 2022-05-28 17:24 | XCELERA ---
[id number]
--- NOTE | 2022-05-28 17:32 | XRay Report ---
XR chest 1V portable CLINICAL HISTORY: Shortness of Breath TECHNIQUE: Single frontal radiograph of the chest was obtained. Comparison: Comparison is made to chest radiograph 05/28/2022 FINDINGS: No lines and tubes are seen. Cardiomegaly is noted. Prominence and cephalization of the vasculature i s seen. No evidence of pleural effusion or pneumothorax. IMPRESSION: Mild pulmonary edema. ACT 112: Negative or not required by law. Electronically signed by: Colby Domingeuz M.D. 05/28/2022 5:31 PM
[2022-05-28] MEDS: RIVAROXABAN 15 MG TAB PO SCH (18:21)
--- NOTE | 2022-05-28 18:41 | Neurology Consultation ---
Date of Consultation May 28, 2022 Assessment & Plan (1) CVA (cerebral vascular accident): Impression: The patient has been suffering from aphasia since last night. He was not a candidate for thrombolytic treatment as he was outside of treatment window. He has chronic atrial fibrillation on Xarelto for anticoagulation and he has been compliant. Plan/recommendations: We will keep the patient on Xarelto for anticoagulation. Apparently, anticoagulation will decrease the risk of stroke but even on anticoagulation, cardioembolic stroke risk higher than normal population. Has the patient is already on prednisone, we will not add antiplatelet medication to treatment. The patient will continue using statin as before. Goal LDL level is lower than 70. Outpatient speech therapy. Blood pressure controlled. Goal blood pressure is lower than 130/80. There is no indication for permissive hypertension anymore. Management of diabetes mellitus. If the patient stays stable, then he can be discharged home tomorrow. Follow-up with neurology clinic in a month. I will inform Dr. Shearer's office for an appointment. (2) CKD (chronic kidney disease): (3) Atrial fibrillation: Impression: The patient has long history of atrial fibrillation. Rate is well controlled. [id number] score is high and the patient will continue to be on anticoagulation for stroke prevention. (4) Hypertension: As seen above. (5) Peripheral neuropathy: (6) Hyperlipidemia: As seen above. (7) Diabetes mellitus, type 2: Plan Thank you for the consultation. History of Present Illness Reason for Consultation: CVA Requesting Physician: Pollo Villegas MD Attending Physician: Pollo Villegas MD History of Present Illness The patient is a 86-year-old gentleman, who began having speech disturbance yesterday evening, and presented emergency department this morning, due to persistent symptoms. Code stroke was activated, and the patient had a head CT, CT angiography of head and neck,which showed no acute pathology or hemodynamically significant stenosis, other than diminutive irregular sylvian branch of the left middle cerebral artery which was a new finding since CT angiography of January 2019. Teleneurology was consulted for acute stroke evaluation. Apparently, the patient was not a candidate for thrombolytic treatment because of being outside of treatment window. The patient was given a dose of aspirin and was admitted to hospital. Brain MRI showed left posterior middle cerebral artery territory acute ischemic stroke. The patient has long history of atrial fibrillation on Xarelto for anticoagulation. He reports that he has been compliant. He has been also on statin and his prior serum lipids levels were normal with LDL lower than 70. Echocardiogram was completed today, which showed biatrial enlargement, without intracardiac thrombus. Ejection fraction was normal. Since last night, his speech has been slightly improved. He still has significant mixed type aphasia. He has history of atypical migraine attacks with associated neurological symptoms, but he has not had any similar migraine attack recently. The patient denies any sensorimotor symptoms. His cognitive functioning has not been altered. I have reviewed the patient's chart including imaging studies and visualized them personally. I have discussed the case with the patient and family and answered their questions in detail. Allergies Allergy/AdvReac Type Severity Reaction Status Date / Time tetanus toxoid, adsorbed Allergy Intermediate BLISTERS Verified 05/28/22 10:56 AND EYES SWELLING hydromorphone AdvReac Intermediate HALLUCINATI Verified 05/28/22 10:56 ONS lorazepam AdvReac Intermediate HALLUCINATI Verified 05/28/22 10:56 ONS Home Medications Medication Instructions Recorded Confirmed Type mecobalamin (vitamin B12) 1,000 1,000 mcg PO QPM 07/23/20 05/28/22 History mcg chewable tablet cholecalciferol (vitamin D3) 50 50 mcg PO QAM 12/10/20 05/28/22 History mcg (2,000 unit) capsule [id number] acid 300 1 tab PO QAM 12/10/20 05/28/22 History mcg-lycopene 600 mcg-lutein 300 mcg tablet (Centrum Silver Men) pantoprazole 40 mg tablet,delayed 40 mg PO DAILY #90 tabs 10/22/21 05/28/22 Rx release rivaroxaban 20 mg tablet (Xarelto) 20 mg PO QAM #90 tabs 12/01/21 05/28/22 Rx levothyroxine 50 mcg tablet 50 mcg PO QAM #90 tabs 12/18/21 05/28/22 Rx simvastatin 40 mg tablet 40 mg PO PM #30 tabs 12/26/21 05/28/22 Rx glipizide 2.5 mg tablet, extended 2.5 mg PO QAM #90 tabs 01/21/22 05/28/22 Rx release 24 hr glipizide 5 mg tablet, extended 5 mg PO QAM #90 tabs 01/22/22 05/28/22 Rx release 24 hr metformin 500 mg tablet,extended 500 mg PO QPM #90 tabs 03/23/22 05/28/22 Rx release 24 hr metoprolol succinate 100 mg 100 mg PO QAM #30 tabs 03/30/22 05/28/22 Rx tablet,extended release 24 hr diltiazem HCl 120 mg 120 mg PO DAILY #90 caps 04/02/22 05/28/22 Rx capsule,extended release 24 hr (Cartia XT) lisinopril 2.5 mg tablet 2.5 mg PO DAILY #90 tabs 04/22/22 05/28/22 Rx empagliflozin 10 mg tablet 10 mg PO DAILY #30 tabs 04/28/22 05/28/22 Rx (Jardiance) aluminum hydrox-magnesium carb 95 15 ml PO DAILY PRN 05/27/22 05/28/22 History mg-358 mg/15 mL oral suspension HEARTBURN/INDIGESTION (Gaviscon) prednisone 10 mg tablets in a dose 10 mg PO .COMPLEX #21 ea 05/27/22 05/28/22 Rx pack wheat dextrin 3 gram/3.5 gram oral 1.5 g PO DAILY 05/27/22 05/28/22 History powder packet (Benefiber Clear Sugar Free(dextrin)) Patient History Medical History Atrial fibrillation follows with Dr. Patel B12 deficiency Basal cell carcinoma (BCC) of face Classic migraine Diabetes mellitus, type 2 Hiatal hernia History of anesthesia reaction had hallucination when having tonsils removed History of yellow fever Hyperlipidemia Hypertension Hypothyroidism Mitral regurgitation On anticoagulant therapy xarelto daily Osteoarthritis Rotator cuff tear Per MRI 02/2020. Followed by orthopedics. Declined operative management. Small bowel obstruction Squamous cell carcinoma skin of arm Transient ischemic attack (TIA) Surgical History H/O hernia repair History of bowel resection for colon cancer History of cardioversion x2 History of colonoscopy History of colostomy History of esophagogastroduodenoscopy (EGD) 06/2021 Hiatal hernia small, gastritis History of phacoemulsification of cataract of both eyes with intraocular lens implantation History of root canal procedure History of tonsillectomy and adenoidectomy History of total right hip replacement History of wisdom tooth extraction Hx of abdominal surgery bowel obstruction Hx of vasectomy Status post Mohs surgery for basal cell carcinoma Family History Father , age 91 Hypertension Diabetes Mother , age 64 metastatic breast cancer Breast cancer Ovarian cancer Brother Colorectal cancer Other Coronary heart disease No family history of adverse response to anesthesia Denies family history of Prostate cancer Crohn's disease Myocardial infarction Lung cancer Inflammatory bowel disease Social History Smoking Status: Unknown if ever smoked Tobacco Type: Pipe Age Started Using Tobacco: 22; Age Quit Using Tobacco: 52; Second Hand Exposure: No; Do You Dip or Chew Tobacco: No; Tobacco Cessation Education Requested by Patient: No Hx Alcohol Use: No Hx Substance Use: No Preferred Language: Guatemalan Communication Ability: Effective Visual Impairment: Diminished Hearing Ability: Normal Online Communications Manager Required: No Beliefs That Will Affect Care: None marital status: Current Living Situation: Spouse current occupational 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[employer], [employer] How many Children do You have: 1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 Feels Safe at Home: Yes Safety Concerns: Feels Safe At This Time Childhood Exposure to Second-Hand Smoke: Yes (father smoked in home ) caffeine: Yes (drinks coffee daily about half a cup ) Dental Care, Regularly: Yes Physical Activity Frequency: 3-4 Times per Week Physical Activity Frequency Comment: 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 HENT: Normal exam with inspection. CV: Hearth rhythm is irregularly irregular.. Neck: Supple, no carotid bruits. Lungs: Non-labored and comfortable breathing. Abdomen: Soft, non-tender, non-distended. Skin: No rash or ecchymosis. Extremities: No edema or cyanosis NEUROLOGICAL EXAMINATION: Mental Status: Alert and oriented to place, person and time. Cranial Nerves: II-XII are intact. No nystagmus. Funduscopy: Normal looking optic discs. Motor: 5/5 in all extremities without asymmetry. Tone: Normal without spasticity or rigidity. Sensory: Intact to all sensory modalities except some decreased sensation in feet. Coordination: No dysmetria with FTN testing. Speech: Aphasic, mixt type. Gait: Normal. No ataxia or abnormal walking pattern. Musculoskeletal: Normal muscle bulk, no atrophy. Results & Data ([facility]) Vital Signs (Past 12 Hours) Vital Signs Temp Pulse Pulse Resp BP BP Pulse Ox 05/28/22 15:23 36.8 C 60 18 131/75 99 05/28/22 13:30 36.6 C 77 16 139/79 98 05/28/22 11:15 98 H 18 97 05/28/22 11:00 86 24 123/79 100 05/28/22 10:47 96 H 27 H 148/90 H 99 05/28/22 10:30 77 23 98 05/28/22 10:30 136/84 05/28/22 10:15 85 17 100 05/28/22 10:15 141/86 H 05/28/22 10:00 93 H 26 H 100 05/28/22 10:00 132/75 05/28/22 09:45 98 H 16 96 05/28/22 09:45 142/106 H 05/28/22 09:30 84 23 99 05/28/22 09:30 132/84 05/28/22 09:15 86 31 H 100 05/28/22 09:15 130/99 05/28/22 09:00 94 H 25 H 97 05/28/22 09:00 139/92 05/28/22 08:48 88 33 H 99 05/28/22 08:48 146/94 H 05/28/22 08:47 101 H 98 05/28/22 08:59 05/28/22 08:48 99 05/28/22 08:48 05/28/22 08:36 118 H 29 H 140/110 H 05/28/22 08:23 36.4 C L 122 H 24 148/94 H 100 O2 Del Method 05/28/22 15:23 Room Air 05/28/22 13:30 05/28/22 11:15 Room Air 05/28/22 11:00 Room Air 05/28/22 10:47 Room Air 05/28/22 10:30 Room Air 05/28/22 10:30 05/28/22 10:15 05/28/22 10:15 05/28/22 10:00 05/28/22 10:00 05/28/22 09:45 Room Air 05/28/22 09:45 05/28/22 09:30 Room Air 05/28/22 09:30 05/28/22 09:15 Room Air 05/28/22 09:15 05/28/22 09:00 Room Air 05/28/22 09:00 05/28/22 08:48 Room Air 05/28/22 08:48 05/28/22 08:47 Room Air 05/28/22 08:59 Room Air 05/28/22 08:48 Room Air 05/28/22 08:48 Room Air 05/28/22 08:36 Room Air 05/28/22 08:23 Room Air Laboratory Results Laboratory Results - last 24 hr 05/28/22 05/28/22 05/28/22 08:34 08:34 08:34 WBC 10.68 RBC 5.06 Hgb 13.1 L POC Hgb Hct 41.8 POC Hct MCV 82.6 MCH 25.9 MCHC 31.3 L RDW Std Deviation 47.8 H RDW Coeff of Parisa 16.1 H Plt Count 246 MPV 9.3 L PT 12.1 H INR 1.1 APTT 32.9 H PTT Ratio 1.2 VBG pH VBG pCO2 VBG pO2 VBG HCO3 VBG O2 Saturation VBG Base Excess POC Sodium Sodium 139 POC Potassium Potassium 4.7 POC Chloride Chloride 103 Carbon Dioxide 19 L POC Total CO2 Anion Gap 17 H POC Anion Gap POC BUN BUN 19 Creatinine 1.45 H POC Creatinine Est Cr Clr Drug Dosing 39.2 Est GFR ( Amer) 50.9 Est GFR (Non-Af Amer) 43.9 BUN/Creatinine Ratio 13.1 Glucose 238 H POC Glucose POC Glucose (other) Osmolality Lactate Calcium 10.3 H POC Ioniz Calcium Rochelle Magnesium 2.2 Total Bilirubin 1.3 H AST 16 ALT 14 Alkaline Phosphatase 63 Total Protein 8.0 Albumin 4.9 Globulin 3.1 Albumin/Globulin Ratio 1.6 SARS-CoV-2, RNA, NAAT 05/28/22 05/28/22 05/28/22 08:34 08:49 09:27 WBC RBC Hgb POC Hgb 14.6 Hct POC Hct 43 MCV MCH MCHC RDW Std Deviation RDW Coeff of Parisa Plt Count MPV PT INR APTT PTT Ratio VBG pH 7.51 H VBG pCO2 24 L VBG pO2 30 VBG HCO3 19 VBG O2 Saturation < 60.0 VBG Base Excess -2.1 POC Sodium 139 Sodium POC Potassium 4.7 Potassium POC Chloride 107 Chloride Carbon Dioxide POC Total CO2 17 L Anion Gap POC Anion Gap 21.0 POC BUN 18 BUN Creatinine POC Creatinine 1.3 Est Cr Clr Drug Dosing Est GFR ( Amer) Est GFR (Non-Af Amer) BUN/Creatinine Ratio Glucose POC Glucose 260 H POC Glucose (other) 251 H Osmolality Lactate Calcium POC Ioniz Calcium Rochelle 1.20 Magnesium Total Bilirubin AST ALT Alkaline Phosphatase Total Protein Albumin Globulin Albumin/Globulin Ratio SARS-CoV-2, RNA, NAAT 05/28/22 05/28/22 05/28/22 10:01 11:10 11:10 WBC RBC Hgb POC Hgb Hct POC Hct MCV MCH MCHC RDW Std Deviation RDW Coeff of Parisa Plt Count MPV PT INR APTT PTT Ratio VBG pH VBG pCO2 VBG pO2 VBG HCO3 VBG O2 Saturation VBG Base Excess POC Sodium Sodium POC Potassium Potassium POC Chloride Chloride Carbon Dioxide POC Total CO2 Anion Gap POC Anion Gap POC BUN BUN Creatinine POC Creatinine Est Cr Clr Drug Dosing Est GFR ( Amer) Est GFR (Non-Af Amer) BUN/Creatinine Ratio Glucose POC Glucose POC Glucose (other) Osmolality 295 Lactate 2.0 Calcium POC Ioniz Calcium Rochelle Magnesium Total Bilirubin AST ALT Alkaline Phosphatase Total Protein Albumin Globulin Albumin/Globulin Ratio SARS-CoV-2, RNA, NAAT NEGATIVE 05/28/22 05/28/22 05/28/22 12:42 14:31 18:20 WBC RBC Hgb POC Hgb Hct POC Hct MCV MCH MCHC RDW Std Deviation RDW Coeff of Parisa Plt Count MPV PT INR APTT PTT Ratio VBG pH VBG pCO2 VBG pO2 VBG HCO3 VBG O2 Saturation VBG Base Excess POC Sodium Sodium 138 POC Potassium Potassium 3.8 POC Chloride Chloride 106 Carbon Dioxide 20 L POC Total CO2 Anion Gap 12 H POC Anion Gap POC BUN BUN 21 Creatinine 1.31 POC Creatinine Est Cr Clr Drug Dosing 43.3 Est GFR ( Amer) 57.5 Est GFR (Non-Af Amer) 49.6 BUN/Creatinine Ratio 16.0 Glucose 164 H POC Glucose 144 H 113 H POC Glucose (other) Osmolality Lactate Calcium 9.3 POC Ioniz Calcium Rochelle Magnesium Total Bilirubin AST ALT Alkaline Phosphatase Total Protein Albumin Globulin Albumin/Globulin Ratio SARS-CoV-2, RNA, NAAT Diagnostic Findings Head CT 05/28/22 08:30 CT OF THE HEAD WITHOUT CONTRAST CLINICAL HISTORY: Stroke alert. COMPARISON STUDY: MRI of the brain July 08, 2020. Head CT and CTA of the head January 15, 2019. CT DOSE: 691.05 mGy.cm TECHNIQUE: Helical axial images of the head were obtained without IV contrast. Automated exposure control was utilized for the study. A dose lowering technique was utilized adhering to the principles of ALARA. FINDINGS: No acute intracranial hemorrhage, midline shift or mass effect is present. White matter hypodensities are unchanged and favor small vessel disease. The ventricular system is unremarkable. The basal cisterns are patent. No extra-axial collections are present. There are no findings to suggest acute dural sinus thrombosis or acute territorial infarct. No significant calvarial abnormalities are present. Trace fluid within the right mastoid air cells is unchanged. IMPRESSION: No acute intracranial findings. ACT 112: Negative or not required by law. Electronically signed by: Sami Tinajero M.D. 05/28/2022 9:13 AM Head CTA 05/28/22 08:59 CTA ANGIOGRAPHY OF THE HEAD CLINICAL HISTORY: Expressive aphasia. COMPARISON STUDY: CTA of the head January 15, 2019. TECHNIQUE: Helical axial images of the head were obtained following uneventful intravenous administration of 120 cc of Optiray. Sagittal and coronal r econstructions were viewed as well as maximal intensity projections on an independent 3-D workstation. Automated exposure control was utilized for the study. A dose lowering technique was utilized adhering to the principles of ALARA. CT DOSE: 615.76 mGy.cm FINDINGS: Please note that the neck CTA will be reported separately. Moderate plaque is noted within the bilateral cavernous carotids without stenosis. No intracranial aneurysm. The right M1, M2, A1 and A2 segments are patent. The left A1 and A2 segments are patent. Left M1 segment is patent. Irregularity with suspected multifocal stenoses of a sylvian branch of the left middle cerebral artery is noted. This is new since CT of January 15, 2019 impression on axial image 136 of 266. There may be a short segment occlusion with distal reconstitution. This vessel is diminutive. Otherwise, intracranial vessels appear unchanged. Posterior circulation is intact. IMPRESSION: 1. Diminutive irregular sylvian branch of the left middle cerebral artery, a new finding since CTA of January 15, 2019. Severe stenosis versus short segment occlusion with distal reconstitution. The findings could be correlated with evidence for a left MCA territory infarct. 2. Otherwise, no change in appearance of the intracranial vessels. ACT 112: Negative or not required by law. Electronically signed by: Sami Tinajero M.D. 05/28/2022 10:01 AM Neck CTA 05/28/22 09:00 NECK CTA HISTORY: Speech and memory difficulty. Assess for stroke. TECHNIQUE: Multiaxial CT images of the neck were performed following the intravenous administration of contrast to evaluate the major cervical vessels. Maximum intensity projection images were also obtained. All measurements were calculated based on NASCET criteria. A dose lowering technique was utilized adhering to the principles of ALARA. COMPARISON STUDY: Neck CTA 01/15/2019. FINDINGS: The aortic arch and proximal great vessels are widely patent. There is no significant stenosis or occlusion identified within the bilateral common carotid, internal carotid, or vertebral arteries. 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 IMPRESSION: 1. No significant stenosis or occlusion within the carotid or vertebral arteries. 2. Stable focal short segment chronic dissection within the proximal right inte rnal carotid artery. ACT 112: Negative or not required by law. Electronically signed by: Guillermo Mccollum M.D. 05/28/2022 9:38 AM Chest X-Ray 05/28/22 10:00 XR chest 1V portable HISTORY: Stroke symptoms. COMPARISON: Chest and abdominal series 06/14/2020. FINDINGS: No pneumothorax. The heart is mildly enlarged. There is progressive interstitial/vascular thickening consistent with mild pulmonary edema. Right basilar linear densities favor subsegmental atelectasis. Otherwise, no focal lung consolidations to suggest a pneumonia. Trace bilateral pleural effusions are noted. IMPRESSION: Cardiomegaly with mild interstitial pulmonary edema and trace bilateral pleural effusions. ACT 112: Negative or not required by law. Electronically signed by: Guillermo Mccollum M.D. 05/28/2022 10:27 AM Brain MRI 05/28/22 13:11 MR brain wo con HISTORY: 86 years-old Male CVA acute strokelike symptoms with altered mental status COMPARISON: Head CT 05/28/2022, brain MRI 06/07/2020. TECHNIQUE: Multiplanar multisequence MRI of the brain was obtained without the use of IV contrast. FINDINGS: Inorganic Chemistry Teacher localizer images demonstrate no gross extracranial abnormality. The study is motion degraded. There is an ill-defined area of restricted diffusion within the left parietal lobe measuring 3.2 x 3.1 cm on images 15 and 16 of series 4. This demonstrates mildly decreased signal on the ADC map with mildly increased T2/FLAIR signal. No additional areas of restricted diffusion identified. The midline structures appear unremarkable. Partially empty sella. Degenerative changes of the imaged cervical spine. Low-lying cerebellar tonsils. There is no acute intracranial hemorrhage, midline shift, abnormal extra-axial collection, abscess less or intracranial mass identified. Involutional changes. Mild T2/FLAIR hyperintense foci throughout the white matter suggest chronic microvascular ischemic disease. Cerebral venous sinuses and major arterial flow voids appear to be patent. Small right mastoid effusion. Minimal mucosal thickening of the paranasal sinuses. Prior bilateral lens repair. The skull and soft tissues are unremarkable. IMPRESSION: 1. Acute left parietal lobe infarct measures 3.2 x 3.1 cm. 2. No acute intracranial hemorrhage or midline shift. 3. Involutional changes with mild chronic microvascular ischemic disease. ACT 112: Negative or not required by law. The above report was generated using voice recognition software. It may contain grammatical, syntax or spelling errors. Electronically signed by: Frederic Rodriguez M.D. 05/28/2022 4:27 PM Chest X-Ray 05/28/22 16:52 XR chest 1V portable CLINICAL HISTORY: Shortness of Breath TECHNIQUE: Single frontal radiograph of the chest was obtained. Comparison: Comparison is made to chest radiograph 05/28/2022 FINDINGS: No lines and tubes are seen. Cardiomegaly is noted. Prominence and cephalization of the vasculature is seen. No evidence of pleural effusion or pneumothorax. IMPRESSION: Mild pulmonary edema. ACT 112: Negative or not required by law. Electronically signed by: Colby Dominguez M.D. 05/28/2022 5:31 PM
[2022-05-28] MEDS ORDERED: LANTUS PER UNIT CHARGE SQ SCH (21:00)
[2022-05-28] MEDS ORDERED: SIMVASTATIN 40 MG TAB PO SCH (21:00)
[2022-05-28] MEDS ORDERED: CYANOCOBALAMIN (B-12) 500 MCG TABLET PO SCH (21:00)
[2022-05-28 23:36] LABS: Appearance Urine Clear (Clear); Bacteria Urine Automated Negative (Negative); Bilirubin Urine Negative (Negative); Blood Urine 2+ (Negative); Color Urine Yellow; Epithelial Cell Urine Auto 0-5 /lpf (0-5); Glucose Urine UA 2+ (Negative); Ketones Urine Trace (Negative); Leukocyte Esterase Urine Negative (Negative); Nitrite Urine Negative (Negative); Protein Urine Negative (Negative); Specific Gravity Urine 1.011 (1.000-1.030); Urobilinogen Urine Negative (Negative); WBC Urine Automated 0 /hpf (0-5); pH Urine 5.5 (4.5-7.5)
--- NOTE | 2022-05-28 23:57 | Communication Note ---
Date of Service: May 28, 2022 Notified by night RN patient was having higher respiratory rate to 28, blowing respirations, complaint of mild shortness of breath and anxious, coarse crackles in LLL, no peripheral edema, NIHSS score 7 w/ expressive and receptive aphasia and limb ataxia, saturating 96% RA. I evaluated and spoke with patient at bedside, at the time of my evaluation an hour later patient was resting comfortably in bed. Difficult to ascertain HPI however patient able to answer yes/no questions; he denied feeling like he had fluid in his lungs, cough, sputum production, or leg edema; he stated he had some increased respirations earlier that may have been due to anxiety although at the time of evaluation he denied difficulty breathing. Has some difficulty falling asleep due to noise from room and outside. On exam patient laying in bed comfortably not in any acute distress, no increased work of breathing, irregular pulse/rhythm, lungs clear to auscultation bilaterally, no peripheral edema at extremities. Most likely secondary to anxiety, less likely fluid overload. Continue to monitor breathing and vitals. Lowered insulin glargine to 7 units BID from 14U BID while NPO. Resident Activity Tracking Resident Involvement: Resident Care Provided Care Provided: Adult Hospital Medicine
[2022-05-29] MEDS: INSULIN ASPART PER UNIT SC SCH ×3 (00:28→12:12)
--- NOTE | 2022-05-29 05:51 | Electrocardiogram Report ---
Test Reason : Blood Pressure : / mmHG Vent. Rate : 109 BPM Atrial Rate : 110 BPM P-R Int : 000 ms QRS Dur : 146 ms QT Int : 384 ms P-R-T Axes : 000 -66 -16 degrees QTc Int : 517 ms Atrial fibrillation with rapid ventricular response with premature ventricular or aberrantly conducte d complexes Indeterminate axis Right bundle branch block Cannot rule out Inferior infarct , age undetermined Abnormal ECG When compared with ECG of 16-JAN-2019 07:08, QRS axis Shifted left Confirmed by Lior Lee ([id number]) on 05/29/2022 5:51:11 AM Referred By: REFERRED SELF Confirmed By:Lior Lee
[2022-05-29] MEDS ORDERED: LEVOTHYROXINE SODIUM 50 MCG TABLET PO SCH (06:30)
[2022-05-29 07:42] LABS: Basophils # (auto) 0.05 K/uL (0-0.2); Basophils % (auto) 0.5 %; Eosinophils # (auto) 0.03 K/uL (0-0.50); Eosinophils % (auto) 0.3 %; Hematocrit (blood only) 35.8 % (40.1-51.0); Hemoglobin 11.6 g/dl (14.0-18.0); Immature Granulocytes # (auto) 0.05 K/uL (0.00-0.02); Immature Granulocytes % (auto) 0.5 %; Lymphocytes # (auto) 1.53 K/uL (1.2-3.4); Lymphocytes % (auto) 13.8 %; Mean Corpuscular Hgb Conc 32.4 g/dL (32.0-36.0); Mean Corpuscular Volume 80.1 fL (80.0-100.0); Mean Platelet Volume 9.1 fL (9.4-12.4); Neutrophils # (auto) 8.44 K/uL (1.4-6.5); Neutrophils % (auto) 75.9 %; Platelet Count 225 K/uL (130-400); RDW Coefficient of Variation 16.3 % (11.5-14.5); RDW Standard Deviation 46.7 fL (36.4-46.3); Red Blood Count 4.47 M/uL (4.63-6.08)
[2022-05-29 08:11] LABS: BUN Creatinine Ratio 19.3 (10-20); Calcium 9.1 mg/dl (8.5-10.1); Chol HDL Ratio 2.3 (0-5); Creatinine Clr Calc Pharmacy 42.1 ml/min; Est GFR (African American) 55.5 ml/min; Est GFR (Non-African American) 47.9 ml/min; Potassium 3.5 mmol/L (3.5-5.1)
[2022-05-29 08:41] LABS: Estimated Average Glucose 163 mg/dl; Hemoglobin A1C 7.3 % (4.5-5.6)
[2022-05-29] MEDS ORDERED: predniSONE 10 MG TABLET PO SCH (09:00)
[2022-05-29] MEDS ORDERED: PANTOprazole 40 MG TAB PO SCH (09:00)
[2022-05-29] MEDS ORDERED: dilTIAZem HCL 120 MG CAPCR PO SCH (09:00)
[2022-05-29] MEDS ORDERED: [UNRECOGNIZED DRUG - OTHER] PO SCH (09:00)
[2022-05-29] MEDS ORDERED: lisinopril 2.5 MG TAB PO SCH (09:00)
[2022-05-29] MEDS ORDERED: CHOLECALCIFEROL 1,000 UNITS 25 MCG TAB PO SCH (09:00)
[2022-05-29] MEDS ORDERED: LANTUS PER UNIT CHARGE SQ SCH (09:00)
[2022-05-29] MEDS ORDERED: WHEAT DEXTRIN PO SCH (09:00)
[2022-05-29] MEDS ORDERED: FUROSEMIDE INJ 20 MG/2 ML VIAL IV SCH (09:00)
[2022-05-29] MEDS ORDERED: METOPROLOL SUCC 50MG EXT REL TAB PO SCH (09:00)
[2022-05-29] MEDS ORDERED: STROKE PATIENT DISCHARGE STA (13:13)
[2022-05-29] MEDS: RIVAROXABAN 15 MG TAB PO SCH (13:52)
--- NOTE | 2022-05-29 14:23 | Pharmacy Report ---
Pharmacist Stroke Counseling - Date of Service May 29, 2022 - Scope: Pharmacy has been consulted to provide medication discharge counseling for this patient admitted with ischemic stroke as per the Pharmacist Discharge Counseling for Stroke Patients Protocol. - Medications on Discharge: Home Medications Medication Instructions Recorded Confirmed mecobalamin (vitamin B12) 1,000 1,000 mcg PO QPM 07/23/20 05/28/22 mcg chewable tablet cholecalciferol (vitamin D3) 50 50 mcg PO QAM 12/10/20 05/28/22 mcg (2,000 unit) capsule gmnaescf-fwc-xqpvl acid 300 1 tab PO QAM 12/10/20 05/28/22 mcg-lycopene 600 mcg-lutein 300 mcg tablet (Centrum Silver Men) aluminum hydrox-magnesium carb 95 15 ml PO DAILY PRN 05/27/22 05/28/22 mg-358 mg/15 mL oral suspension HEARTBURN/INDIGESTION (Gaviscon) wheat dextrin 3 gram/3.5 gram oral 1.5 g PO DAILY 05/27/22 05/28/22 powder packet (Benefiber Clear Sugar Free(dextrin)) New Rx's Medication Instructions Recorded pantoprazole 40 mg tablet,delayed 40 mg PO DAILY #90 tabs 10/22/21 release rivaroxaban 20 mg tablet (Xarelto) 20 mg PO QAM #90 tabs 12/01/21 levothyroxine 50 mcg tablet 50 mcg PO QAM #90 tabs 12/18/21 simvastatin 40 mg tablet 40 mg PO PM #30 tabs 12/26/21 glipizide 2.5 mg tablet, extended 2.5 mg PO QAM #90 tabs 01/21/22 release 24 hr glipizide 5 mg tablet, extended 5 mg PO QAM #90 tabs 01/22/22 release 24 hr metformin 500 mg tablet,extended 500 mg PO QPM #90 tabs 03/23/22 release 24 hr metoprolol succinate 100 mg 100 mg PO QAM #30 tabs 03/30/22 tablet,extended release 24 hr diltiazem HCl 120 mg 120 mg PO DAILY #90 caps 04/02/22 capsule,extended release 24 hr (Cartia XT) lisinopril 2.5 mg tablet 2.5 mg PO DAILY #90 tabs 04/22/22 empagliflozin 10 mg tablet 10 mg PO DAILY #30 tabs 04/28/22 (Jardiance) prednisone 10 mg tablets in a dose 10 mg PO .COMPLEX #21 ea 05/27/22 pack aspirin 81 mg tablet,delayed 81 mg PO DAILY #30 tabs 05/29/22 release (Adult Low Dose Aspirin) - Action: The above medications, specifically ones for stroke treatment/prophylaxis, have been reviewed in detail with the patient and/or patient bank representative(s) prior to discharge. This includes indication, common adverse reactions, drug interactions, and medication administration. Medication counseling has been employed using the teach-back method to ensure understanding. - Outcome: The patient bank representative (family member) have demonstrated understanding of the medications. Additional comments: Spoke with patient and family member today. Reviewed new medication to prevent stroke- Aspirin and previous meds- Zocor and Xarelto. Discussed why they are being used and common side effects in great detail. Reviewed how to use the medications, what to do if doses are missed, common drug interactions, common side effects, what to watch out for while using the medications. Family member verbalized understanding. Thank you for allowing pharmacy to be involved in the care of this patient. Please call [phone] with any additional questions
--- NOTE | 2022-05-29 16:36 | Discharge Summary ---
Date of Service May 29, 2022 Admission HPI Per Admitting Provider Amilcar Morin is an 86-year-old male with past medical history significant for atrial fibrillation, hypertension, DM2, hyperlipidemia, hypothyroidism, atypical migraine headaches, GERD, B12 deficiency, and gout flare he is who presents today with slurred speech. Beginning last evening around 8:30 PM, patient's noticed his speech was very slurred and that he was having difficulty expressing himself. Of note, patient does have a history of migraines and this is typically how he presents with such but does not feel like he has a migraine today. He has no other deficits, denies numbness/tingling/weakness to any extremities, visual changes, headache, nausea, vomiting. He is able to interpret information and tries to answer questions appropriately but has difficulty beyond one word answers. No other complaints, no missed doses of medications. He reports a history of mini strokes and believes he may have had a major stroke before. Again, history limited due to expressive aphasia. Patient arrived via private vehicle and was made a stroke alert upon arrival. Head CT is unremarkable, head CT shows an irregular sylvian branch of the left MCA which is new finding compared to CTA from 2019. There is severe stenosis versus short segment occlusion with distal reconstitution which may be correlated with left MCA infarct. Otherwise no change in intracranial vessels. 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 Labs otherwise significant for bicarb 19, AG 17, glucose 268. Creatinine is elevated at 1.45, compared to recent labs over the past year and a half, this seems to be about his baseline. His T bili is mildly elevated at 1.3. Principal Diagnosis Left parietal stroke Discharge Exam General: awake, alert, no apparent distress Head: Normocephalic, atraumatic ENT: PERRL, EOMI, no pharyngeal exudate, mucous membranes moist Chest: Clear to auscultation, on room air, no adventitious breath sounds Cardiac: irregularly irregular rhythm, borderline tachycardic, no murmur, no JVD, normal peripheral pulses, good capillary refill Abdominal: NABS x 4 quadrants, soft, nontender to palpation, no rebound, guarding or tenderness Extremities: Normal inspection, no peripheral edema or erythema, calfs nontender to palpation Psych: Normal mood and affect Neuro: speech is clear but has some word-finding issues. Skin: no rash or erythema Discharge Data Allergies Allergy/AdvReac Type Severity Reaction Status Date / Time tetanus toxoid, adsorbed Allergy Intermediate BLISTERS Verified 05/28/22 10:56 AND EYES SWELLING hydromorphone AdvReac Intermediate HALLUCINATI Verified 05/28/22 10:56 ONS lorazepam AdvReac Intermediate HALLUCINATI Verified 05/28/22 10:56 ONS Consultations 05/28/22 10:37 ED Decision to Admit Stat 05/28/22 13:11 Consult Neurology Routine Ordered Studies 05/28/22 08:30 CT head/brain wo con Stat 05/28/22 08:59 CT angio head w con Stat 05/28/22 09:00 CT angio neck with con Stat 05/28/22 13:11 MR brain wo con Routine Hospital Course (1) Expressive aphasia: MRI brain showed "Acute left parietal lobe infarct measures 3.2 x 3.1 cm." despite being consistently on his anticoagulation for his afib. CTA head showed it was likely in MCA territory. - Continue Xarelto - Add ASA 81 mg daily per neurology (discussed on day of discharge as his prednisone course for gout will be short, so do not feel it is a contraindication). - Optimize blood sugars (A1c was 7.3%), so some room to improve. - Optimize blood pressure with PCP --> Discharged with [facility] prescription. Will take to [facility] on Wednesday for evaluation and treatment. (2) Respiratory alkalosis: VBG: pH 7.51, CO2 24, bicarb 19. AG 17. Patient transiently tachycardic on arrival afib 120s, but no hypoxic on RA. - Due to hyperventilation from panic attack. Resolved by discharge. (3) Atrial fibrillation: - Remains in afib in ED. HR < 110. - Continue Xarelto, no missed doses. - Continue metoprolol, diltiazem. (4) Diabetes mellitus, type 2: - Hold home oral agents. - Weight bases basal/bolus + accounting for PO steroid use for gout flare: Lantus 14 u BID, SSI with CF 30, CR 9. (5) CKD (chronic kidney disease): - Cr 1.45, at baseline. - Renally dose medications as able, avoid nephrotoxins. - Stable. (6) Hypertension: - Continue lisinopril. (7) Anemia: - Hgb 13.1, stable and at baseline. - Monitor. (8) Hyperlipidemia: - Continue simvastatin 0 qHS, lipid panel in AM as part of stroke w/u showed LDL of 24. No adjustment needed. (9) Hypothyroidism: - Continue Synthroid. (10) B12 deficiency: - Continue B12 supplementation. (11) GERD (gastroesophageal reflux disease): - Continue Protonix, Gaviscon. (12) Gout: -Acute flare, started on oral prednisone prior to admission. Toe was much better by discharge. Finish steroid course as planned. (13) Classic migraine: - History of such with aphasia as presenting symptom, however no headache today. Symptoms more likely due to acute CVA. Plan - OBS on med/tele. - SCDs, continue Xarelto for VTE ppx/afib. - DNR/DNI. Total Time Total Time Spent Total Time Spent (In Minutes): 34 Discharge Plan Discharge Items Patient Disposition: Home - Home Health Services Reason For Visit: TIA VS CVA Discharge Diagnosis: Left MCA stroke Activity: Resume your previous activity Non-emergency contact: Primary Care Provider and Neurologist Call non-emergency contact if: your symptoms worsen Follow-up/Referrals: Zuleyka Saenz MD [Physician] - (Please see Dr. Saenz in 1-2 weeks. Please call their office to schedule this appointment.) Romulo Barker, [Primary Care Provider] - 06/05/22 2:45 pm Diet: Carb Consistent or DM2 and Heart Healthy Addtl Attending Provider Instructions: Mr. Morin, You were admitted to the hospital with a stroke. This presented similar to some of your migraines (with trouble speaking), but on testing with the MRI, there is clearly a stroke there, so we are unfortunately confident that this occurred. Your speech is clearly the most effected issue; however, it seems to be improving fairly quickly which is great! We have written a script for you to help get outpatient speech therapy. I recommended [facility] as I know they work with stroke very often, but anywhere close to home would be fine. (I have no financial ties to [facility], so this is just my recommendation as where I would go.) To help prevent strokes, we are going to start you on aspirin as well. This is will help reduce the risk of further strokes, but does raise your risk of bleeding. Particularly, I would like you to take an acid-blocking medication (pantoprazole) every day to be sure you do not end up with a stomach ulcer. Pending Studies at Discharge: No Stand-Alone Forms: Medications to Prevent Stroke, My [facility], Smoking Cessation Medications and DC Order Prescriptions: New aspirin [Adult Low Dose Aspirin] 81 mg tablet,delayed release (DR/EC) 81 mg PO DAILY Qty: 30 0RF Continued Xarelto 20 mg tablet 20 mg PO QAM Qty: 90 3RF simvastatin 40 mg tablet 40 mg PO PM Qty: 30 5RF glipizide 2.5 mg tablet extended release 24 hr 2.5 mg PO QAM Qty: 90 3RF glipizide 5 mg tablet extended release 24 hr 5 mg PO QAM Qty: 90 3RF metformin 500 mg tablet extended release 24 hr 500 mg PO QPM Qty: 90 3RF metoprolol succinate 100 mg tablet extended release 24 hr 100 mg PO QAM Qty: 30 5RF diltiazem HCl [Cartia XT] 120 mg capsule,extended release 24hr 120 mg PO DAILY Qty: 90 3RF lisinopril 2.5 mg tablet 2.5 mg PO DAILY Qty: 90 3RF Jardiance 10 mg tablet 10 mg PO DAILY Qty: 30 2RF pantoprazole 40 mg tablet,delayed release (DR/EC) 40 mg PO DAILY Qty: 90 3RF Benefiber Clear SF (dextrin) 3 gram/3.5 gram powder in packet 1.5 g PO DAILY Rx Instructions: mix into at least 4 oz water or juice before administering mecobalamin (vitamin B12) 1,000 mcg tablet,chewable 1,000 mcg PO QPM Centrum Silver Men 300-600-300 mcg tablet 1 tab PO QAM cholecalciferol (vitamin D3) 50 mcg (2,000 unit) capsule 50 mcg PO QAM levothyroxine 50 mcg tablet 50 mcg PO QAM Qty: 90 1RF Gaviscon 95-358 mg/15 mL suspension 15 ml PO DAILY PRN (Reason: HEARTBURN/INDIGESTION) prednisone 10 mg tablets,dose pack 10 mg PO .COMPLEX Qty: 21 0RF Rx Instructions: STARTED 05/27/22; 10 mg PO as directed; Discharge Orders: Discharge Order (Routine); Ordered 05/29/22 Ordered By: Anil Garcia/Other Patient Handouts: Managing Type 2 Diabetes Admission Data Admit Date/Time: 05/28/22 10:47 Attending Provider: Anil Streeter Admit Provider: Clarisa Emery Primary Care Provider: Romulo Barker Other Providers: Pollo Villegas ; Tomy Briscoe Other Interventions: Discharge Summary Assessment (RN) Last Done: 05/29/22 14:00 Coding Level of Care Code 45733 OBS Care - Discharge Diagnoses Expressive aphasia R47.01 Respiratory alkalosis E87.3 Atrial fibrillation I48.91 Diabetes mellitus, type 2 E11.9 CKD (chronic kidney disease) N18.9 Hypertension I10 Anemia D64.9 Hyperlipidemia E78.5 Hypothyroidism E03.9 B12 deficiency E53.8 GERD (gastroesophageal reflux disease) K21.9 Gout M10.9 Classic migraine G43.109
== END 2022-05-29 14:02 | disposition home health service (06) ==
LOC: 2N 08:17 → ED 08:17 → SUATTDRO 10:47 → 2N 12:35
DX: I12.9 Hypertensive chronic kidney disease with stage 1 through stage 4 chronic kidney disease, or unspecified chronic kidney disease; N18.9 Chronic kidney disease, unspecified; Z79.84 Long term (current) use of oral hypoglycemic drugs; Z79.01 Long term (current) use of anticoagulants; E87.3 Alkalosis; R47.01 Aphasia; I48.91 Unspecified atrial fibrillation; E03.9 Hypothyroidism, unspecified; E78.5 Hyperlipidemia, unspecified; I63.9 Cerebral infarction, unspecified; Z79.899 Other long term (current) drug therapy; M10.9 Gout, unspecified; Z88.5 Allergy status to narcotic agent; K21.9 Gastro-esophageal reflux disease without esophagitis; Z88.7 Allergy status to serum and vaccine; D64.9 Anemia, unspecified; E11.22 Type 2 diabetes mellitus with diabetic chronic kidney disease; Z88.8 Allergy status to other drugs, medicaments and biological substances; E53.8 Deficiency of other specified B group vitamins

== ENCOUNTER 2022-06-30 03:36 | Inpatient (IN) ==
[2022-06-30] MEDS ORDERED: ONDANSETRON 4 MG OD TAB ONE (03:52)
[2022-06-30 04:10] LABS: Hematocrit (blood only) 42.1 % (40.1-51.0); Hemoglobin 13.5 g/dl (14.0-18.0); Mean Corpuscular Hemoglobin 26.1 pg (25.0-34.0); Mean Corpuscular Hgb Conc 32.1 g/dL (32.0-36.0); Mean Corpuscular Volume 81.4 fL (80.0-100.0); Mean Platelet Volume 8.8 fL (9.4-12.4); Nucleated RBC # (auto) 0.02 K/uL (0-0); Nucleated RBC % (auto) 0.1 %; Platelet Count 421 K/uL (130-400); RDW Coefficient of Variation 15.9 % (11.5-14.5); RDW Standard Deviation 46.9 fL (36.4-46.3); Red Blood Count 5.17 M/uL (4.63-6.08); White Blood Count 24.51 K/ul (4.8-10.8)
[2022-06-30] MEDS ORDERED: diphenhydrAMINE 50 MG/ML VIAL IV STA (04:22)
[2022-06-30] MEDS ORDERED: METOCLOPRAMIDE HCL INJ 5 MG/ML 2 ML VIAL IV ONE (04:22)
[2022-06-30] MEDS ORDERED: ACETAMINOPHEN 1,000 MG/100 ML VIAL IV STA (04:23)
[2022-06-30] MEDS: SODIUM CHLORIDE 0.9% 1000ML 1,000 ML IV SCH ×2 (04:29→11:03)
[2022-06-30 04:33] LABS: Basophils # (auto) 0.05 K/uL (0-0.2); Basophils % (auto) 0.2 %; Immature Granulocytes # (auto) 0.36 K/uL (0.00-0.02); Immature Granulocytes % (auto) 1.5 %; Lymphocytes # (auto) 1.23 K/uL (1.2-3.4); Monocytes % (auto) 4.5 %; Neutrophils # (auto) 21.77 K/uL (1.4-6.5); Neutrophils % (auto) 88.8 %
[2022-06-30 04:56] LABS: Albumin Globulin Ratio 1.5 (0.9-2); Albumin Level 4.7 gm/dl (3.4-5.0); BUN Creatinine Ratio 18.9 (10-20); Bilirubin,Total 0.8 mg/dl (0.2-1.0); Calcium 9.9 mg/dl (8.5-10.1); Creatinine Clr Calc Pharmacy 39.6 ml/min; Est GFR (African American) 49.6 ml/min; Est GFR (Non-African American) 42.8 ml/min; Globulin 3.1 gm/dl (2.5-4.0); Magnesium 2.4 mg/dl (1.7-2.4); Potassium 4.5 mmol/L (3.5-5.1); Total Protein 7.8 gm/dl (6.0-8.3)
[2022-06-30] MEDS ORDERED: NovoLIN-R INSULIN PER UNIT CHARGE SC STA (05:00)
--- NOTE | 2022-06-30 05:16 | Emergency Department Note ---
History of Present Illness General Chief complaint: GI Assessment Stated complaint: PROBLEM WITH BOWELS,HX STROKE Time Seen by Provider: 06/30/22 03:51 Source: patient and family Mode of arrival: ambulatory Limitations: no limitations History of Present Illness Provider complaint: Abdominal pain, nausea, vomiting, diarrhea Maximum Pain Intensity: 0 This is an 86-year-old male presents emergency department due to abdominal pain, nausea and vomiting, and diarrhea. Patient concerned as he has prior history of bowel obstructions. Patient has had colostomy since his early 40s as part of tr eatment for colon cancer. Patient states he began noticing diarrhea the other night but thought it was from the recent initiation of antibiotics for presumed infection as diagnosed by his PCP. He states within the last 24 hours he developed some vague central abdominal pain next to his stoma, and then this evening began having nausea and vomiting starting around 10 PM. He denies any blood in the emesis or blood in his stools. He states he is not passing gas and has a general sense of bloating. Patient did recently have a stroke, and does have some mild dysarthria which family states has been residual since the stroke. No other known sick contacts. No coming fevers or chills. Home Medications Medication Instructions Recorded Confirmed Type mecobalamin (vitamin B12) 1,000 1,000 mcg PO QPM 07/23/20 06/26/22 History mcg chewable tablet cholecalciferol (vitamin D3) 50 50 mcg PO QAM 12/10/20 06/26/22 History mcg (2,000 unit) capsule qlnqwjkz-hfu-pnzsy acid 300 1 tab PO QAM 12/10/20 06/26/22 History mcg-lycopene 600 mcg-lutein 300 mcg tablet (Centrum Silver Men) pantoprazole 40 mg tablet,delayed 40 mg PO DAILY #90 tabs 10/22/21 06/26/22 Rx release rivaroxaban 20 mg tablet (Xarelto) 20 mg PO QAM #90 tabs 12/01/21 06/26/22 Rx glipizide 2.5 mg tablet, extended 2.5 mg PO QAM #90 tabs 01/21/22 06/26/22 Rx release 24 hr metformin 500 mg tablet,extended 500 mg PO QPM #90 tabs 03/23/22 06/26/22 Rx release 24 hr diltiazem HCl 120 mg 120 mg PO DAILY #90 caps 04/02/22 06/26/22 Rx capsule,extended release 24 hr (Cartia XT) lisinopril 2.5 mg tablet 2.5 mg PO DAILY #90 tabs 04/22/22 06/26/22 Rx empagliflozin 10 mg tablet 10 mg PO DAILY #30 tabs 04/28/22 06/26/22 Rx (Jardiance) aluminum hydrox-magnesium carb 95 15 ml PO DAILY PRN 05/27/22 06/26/22 History mg-358 mg/15 mL oral suspension HEARTBURN/INDIGESTION (Gaviscon) wheat dextrin 3 gram/3.5 gram oral 1.5 g PO DAILY 05/27/22 06/26/22 History powder packet (Benefiber Clear Sugar Free(dextrin)) aspirin 81 mg tablet,delayed 81 mg PO DAILY #30 tabs 05/29/22 06/26/22 Rx release (Adult Low Dose Aspirin) levothyroxine 50 mcg tablet 50 mcg PO QAM #90 tabs 06/19/22 06/26/22 Rx glipizide 5 mg tablet, extended 5 mg PO QAM #90 tabs 06/26/22 06/26/22 Rx release 24 hr levofloxacin 750 mg tablet 750 mg PO Q48H #4 tabs 06/26/22 Rx methylprednisolone 4 mg tablets in 4 mg PO .as directed #21 ea 06/26/22 Rx a dose pack metoprolol succinate 100 mg 100 mg PO QAM #90 tabs 06/26/22 06/26/22 Rx tablet,extended release 24 hr simvastatin 40 mg tablet 40 mg PO PM #90 tabs 06/26/22 06/26/22 Rx Allergies Allergy/AdvReac Type Severity Reaction Status Date / Time tetanus toxoid, adsorbed Allergy Intermediate BLISTERS Verified 06/26/22 09:27 AND EYES SWELLING hydromorphone AdvReac Intermediate HALLUCINATI Verified 06/26/22 09:27 ONS lorazepam AdvReac Intermediate HALLUCINATI Verified 06/26/22 09:27 ONS Past Med/Surg History Medical History Anemia Atrial fibrillation follows with Dr. 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 Followed by orthopedics. Declined operative management. Small bowel obstruction Squamous cell carcinoma skin of arm Transient ischemic attack (TIA) Surgical History H/O hernia repair History of bowel resection for colon cancer History of cardioversion x2 History of colonoscopy History of colostomy History of esophagogastroduodenoscopy (EGD) 06/2021 Hiatal hernia small, gastritis History of phacoemulsification of cataract of both eyes with intraocular lens implantation History of root canal procedure History of tonsillectomy and adenoidectomy History of total right hip replacement History of wisdom tooth extraction Hx of abdominal surgery bowel obstruction Hx of vasectomy Status post Mohs surgery for basal cell carcinoma Family History Father , age 91 Hypertension Diabetes Mother , age 64 metastatic breast cancer Breast cancer Ovarian cancer Brother Colorectal cancer Other Coronary heart disease No family history of adverse response to anesthesia Denies family history of Prostate cancer Crohn's disease Myocardial infarction Lung cancer Inflammatory bowel disease Social History Smoking Status: Former smoker Tobacco Type: Pipe Age Started Using Tobacco: 22; Age Quit Using Tobacco: 52; Second Hand Exposure: No; Do You Dip or Chew Tobacco: No; Tobacco Cessation Education Requested by Patient: No Hx Alcohol Use: No Hx Substance Use: No Preferred Language: Tajik Communication Ability: Effective Visual Impairment: Diminished Hearing Ability: Normal Webbing Supervisor Required: No Beliefs That Will Affect Care: None marital status: Current Living Situation: Spouse current occupational 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[employer], [employer] How many Children do You have: 1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 That Helps Us Care for You: No other: Retired 2001 Feels Safe at Home: Yes Safety Concerns: Feels Safe At This Time Childhood Exposure to Second-Hand Smoke: Yes (father smoked in home ) caffeine: Yes (drinks coffee daily about half a cup ) Dental Care, Regularly: Yes Physical Activity Frequency: 3-4 Times per Week Physical Activity Frequency Comment: 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 Seatbelt Use: always Sunscreen Use: No (says he does cover up well ) Do you think of yourself as: straight/heterosexual Assistive Devices: Cane Review of Systems A total of 10 systems reviewed and were otherwise negative All systems reviewed & are unremarkable except as noted in HPI & below Physical Exam Vital Signs Vital Signs - 24 hr 06/30/22 03:38 06/30/22 05:36 Temperature 36.5 C Temperature Source Temporal Artery Scan Pulse Rate 69 Pulse Rate [Radial] 80 Pulse Rhythm [Radial] Regular Pulse Strength [Radial] Normal Respiratory Rate 24 20 Respiratory Effort / Characteristics Non-Labored Spontaneous Non-Labored Spontaneous Respiratory Depth Normal Normal Respiratory Pattern Regular Blood Pressure 125/70 Blood Pressure [Left Arm] 130/78 Blood Pressure Mean 88 Blood Pressure Mean [Left Arm] 95 Blood Pressure Position [Left Arm] Lying Pulse Oximetry 99 98 Oxygen Delivery Method Room Air Room Air Sepsis New/Unexplained Change in Mental Status N/A Sepsis Action Taken by Nursing No Action Required GENERAL: alert, unwell appearing, well nourished, no distress, non-toxic EYE EXAM: normal conjunctiva, PERRL and EOM's grossly intact OROPHARYNX: no exudate, no erythema, lips, buccal mucosa, and tongue normal and mucous membranes are moist NECK: supple, no nuchal rigidity, no adenopathy, non-tender LUNGS: Clear to auscultation. Normal chest wall mechanics, no w/r/r HEART: no murmurs, S1 normal and S2 normal ABDOMEN: abdomen soft, hypoactive bowel sounds, no rebound or guarding. Mild discomfort with palpation in the periumbilical region, left mid abdominal colostomy noted with small parastomal hernia BACK: Back is symmetrical on inspection and there is no deformity, no midline tenderness, no CVA tenderness. SKIN: no rashes and no bruising UPPER EXTREMITIES: upper extremities are grossly normal. FROM, nml pulses b/l. LOWER EXTREMITIES: No pitting edema. FROM, nml pulses b/l. NEURO EXAM: Normal sensorium, cranial nerves II-XII grossly intact, mild dysarthria, no facial droop, no gross weakness of arms, no gross weakness of legs. Gross sensation intact. Course Course 07: Patient states he is feeling markedly improved. Updated on all results. Administered Medications Aspirin (Aspirin 81 Mg Chew) 81 mg PO DAILY RACHEL Stop: 07/30/22 16:29 Last Admin: 07/02/22 08:32 Dose: 81 mg Documented By: Admin: 07/01/22 08:48 Dose: 81 mg Documented By: Admin: 06/30/22 17:36 Dose: 81 mg Documented By: LUPE Diltiazem HCl (Diltiazem Hcl 120 Mg Capcr) 120 mg PO QAM RACHEL Stop: 08/01/22 10:14 Last Admin: 07/02/22 11:24 Dose: 120 mg Documented By: LUPE Iron Sucrose 200 mg/ Sodium (Chloride) 110 mls @ 220 mls/hr IV DAILY RACHEL Stop: 07/05/22 09:29 Last Infusion: 07/02/22 09:36 Dose: 0 mls/hr Documented By: Admin: 07/02/22 08:56 Dose: 220 mls/hr Documented By: Infusion: 07/01/22 12:43 Dose: 0 mls/hr Documented By: Admin: 07/01/22 12:03 Dose: 220 mls/hr Documented By: LUPE Insulin Aspart (Insulin Aspart Per Unit) 0 units SC ACHS RACHEL Stop: 08/01/22 11:29 Last Admin: 07/02/22 16:42 Dose: Not Given Documented By: Admin: 07/02/22 12:39 Dose: 3 units Documented By: LUPE Co-signed By: PASTORA Metoprolol Succinate (Metoprolol Succ 50mg Ext Rel Tab) 100 mg PO QAM RACHEL Stop: 08/01/22 11:59 Last Admin: 07/02/22 11:25 Dose: 100 mg Documented By: LUPE Rivaroxaban (Rivaroxaban 20 Mg Tab) 20 mg PO QDD RACHEL Stop: 08/01/22 16:29 Last Admin: 07/02/22 16:43 Dose: 20 mg Documented By: LUPE Simvastatin (Simvastatin 40 Mg Tab) 40 mg PO PM RACHEL Stop: 08/01/22 20:59 Last Admin: 07/02/22 19:45 Dose: 40 mg Documented By: DAC Discontinued Medications Diphenhydramine HCl (Diphenhydramine 50 Mg/Ml Vial) 12.5 mg IV NOW STA Stop: 06/30/22 04:23 Last Admin: 06/30/22 04:31 Dose: 12.5 mg Documented By: ALBERT Heparin Sodium/Dextrose (Heparin Iv Adult Wt-Based Standard *No* Bolus Protocol) 1 each IV Q15M ONE; Protocol Stop: 06/30/22 10:27 Last Admin: 06/30/22 12:28 Dose: 1 each Documented By: LUPE Sodium Chloride (Nss 1000ml) 1,000 mls @ 200 mls/hr IV .Q5H RACHEL Stop: 07/30/22 04:29 Last Admin: 06/30/22 11:03 Dose: Not Given Documented By: Infusion: 06/30/22 06:13 Dose: 0 mls/hr Documented By: Admin: 06/30/22 04:29 Dose: 200 mls/hr Documented By: ALBERT Acetaminophen (Ofirmev) 1,000 mg in 100 mls @ 400 mls/hr IV NOW STA Stop: 06/30/22 04:37 Last Infusion: 06/30/22 05:11 Dose: 0 mls/hr Documented By: Admin: 06/30/22 04:32 Dose: 400 mls/hr Documented By: ALBERT Sodium Chloride (Nss 1000ml) 1,000 mls @ 125 mls/hr IV .Q8H RACHEL Stop: 07/30/22 07:29 Last Infusion: 06/30/22 11:03 Dose: 0 mls/hr Documented By: Admin: 06/30/22 08:12 Dose: 125 mls/hr Documented By: JEYSON Acetaminophen (Ofirmev) 1,000 mg in 100 mls @ 400 mls/hr IV Q8H PRN PRN Reason: pain or fever Stop: 07/03/22 10:25 Last Infusion: 07/01/22 03:27 Dose: 0 mls/hr Documented By: Admin: 07/01/22 03:09 Dose: 400 mls/hr Documented By: Infusion: 06/30/22 18:10 Dose: 0 mls/hr Documented By: Admin: 06/30/22 17:47 Dose: 400 mls/hr Documented By: LUPE Heparin Sodium/Dextrose (Heparin Sodium/Dextrose) 25,000 units in 500 mls @ 0 mls/hr IV .Q0M RACHEL; Protocol Stop: 07/30/22 12:29 Last Admin: 07/02/22 10:30 Dose: Not Given Documented By: Admin: 07/02/22 10:30 Dose: Not Given Documented By: Titration: 07/02/22 10:11 Dose: 0 units/hr, 0 mls/hr Documented By: CM Co-signed By: SUB Titration: 07/02/22 07:54 Dose: 0 units/hr, 0 mls/hr Documented By: CM Co-signed By: SUB Titration: 07/01/22 19:07 Dose: 1,050 units/hr, 21 mls/hr Documented By: MEJ Co-signed By: CM Admin: 07/01/22 12:03 Dose: 1,050 units/hr, 21 mls/hr Documented By: CM Co-signed By: HLK Titration: 07/01/22 12:03 Dose: 0 units/hr, 0 mls/hr Documented By: CM Co-signed By: HLK Titration: 07/01/22 06:56 Dose: 1,050 units/hr, 21 mls/hr Documented By: PK Co-signed By: CM Titration: 07/01/22 04:36 Dose: 1,050 units/hr, 21 mls/hr Documented By: PK Co-signed By: DIP STAND LOADER Titration: 07/01/22 03:29 Dose: 0 units/hr, 0 mls/hr Documented By: PK Co-signed By: DIP STAND LOADER Titration: 06/30/22 21:12 Dose: 1,200 units/hr, 24 mls/hr Documented By: PK Co-signed By: CF Titration: 06/30/22 20:06 Dose: 0 units/hr, 0 mls/hr Documented By: PK Co-signed By: DIP STAND LOADER Titration: 06/30/22 19:04 Dose: 1,350 units/hr, 27 mls/hr Documented By: PK Co-signed By: CM Admin: 06/30/22 12:25 Dose: 1,350 units/hr, 27 mls/hr Documented By: CM Co-signed By: GLORIA Pantoprazole Sodium 40 mg/ (Syringe) 10 mls @ 5 mls/min IV DAILY@1100 RACHEL Stop: 07/30/22 10:59 Last Admin: 07/02/22 11:24 Dose: 5 mls/min Documented By: Admin: 07/01/22 12:03 Dose: 5 mls/min Documented By: Admin: 06/30/22 11:12 Dose: 5 mls/min Documented By: LUPE Lactated Ringer's (Lr) 1,000 mls @ 70 mls/hr IV .[id number] [facility] Stop: 07/30/22 10:25 Last Infusion: 07/02/22 10:11 Dose: 0 mls/hr Documented By: Admin: 07/02/22 01:51 Dose: 70 mls/hr Documented By: Infusion: 07/02/22 01:31 Dose: 70 mls/hr Documented By: Infusion: 07/01/22 19:00 Dose: 70 mls/hr Documented By: J Admin: 07/01/22 12:12 Dose: 80 mls/hr Documented By: Infusion: 07/01/22 09:33 Dose: 0 mls/hr Documented By: Admin: 06/30/22 21:18 Dose: 80 mls/hr Documented By: Infusion: 06/30/22 21:18 Dose: 80 mls/hr Documented By: Admin: 06/30/22 10:48 Dose: 80 mls/hr Documented By: LUPE Insulin Aspart (Insulin Aspart Per Unit) 0 units SC Q6 RACHEL Stop: 07/30/22 11:59 Last Admin: 07/02/22 06:06 Dose: Not Given Documented By: Admin: 07/02/22 01:48 Dose: Not Given Documented By: Admin: 07/01/22 17:14 Dose: Not Given Documented By: Admin: 07/01/22 12:03 Dose: Not Given Documented By: Admin: 07/01/22 06:03 Dose: Not Given Documented By: Admin: 07/01/22 00:29 Dose: Not Given Documented By: Admin: 06/30/22 17:36 Dose: Not Given Documented By: Admin: 06/30/22 12:28 Dose: Not Given Documented By: LUPE Insulin Human Regular (Novolin-R Insulin Per Unit Charge) 6 units SC NOW STA Stop: 06/30/22 05:01 Last Admin: 06/30/22 05:33 Dose: 6 units Documented By: ALBERT Co-signed By: JERMAINE Ioversol (Optiray 350 100ml) 100 ml IV ONCE ONE Stop: 06/30/22 05:33 Last Admin: 06/30/22 05:32 Dose: 86 ml Documented By: ADI Metoclopramide HCl (Metoclopramide Hcl Inj 5 Mg/Ml 2 Ml Vial) 5 mg IV ONE ONE Stop: 06/30/22 04:23 Last Admin: 06/30/22 04:29 Dose: 5 mg Documented By: ALBERT Metoprolol Tartrate (Metoprolol Tartrate 1 Mg/Ml Vial) 5 mg IV Q6 RACHEL Stop: 07/30/22 10:25 Last Admin: 07/02/22 06:17 Dose: 5 mg Documented By: Admin: 07/02/22 01:49 Dose: 5 mg Documented By: Admin: 07/01/22 17:15 Dose: 5 mg Documented By: Admin: 07/01/22 12:04 Dose: 5 mg Documented By: Admin: 07/01/22 06:06 Dose: 5 mg Documented By: Admin: 07/01/22 00:29 Dose: Not Given Documented By: Admin: 06/30/22 17:37 Dose: 5 mg Documented By: Admin: 06/30/22 12:28 Dose: Not Given Documented By: Admin: 06/30/22 10:53 Dose: 5 mg Documented By: LUPE Ondansetron HCl (Ondansetron 4 Mg Od Tab) Confirm Administered Dose 4 mg .ROUTE .STK-MED ONE Stop: 06/30/22 03:53 Last Admin: 06/30/22 03:59 Dose: 4 mg Documented By: ALBERT Potassium Chloride (Potassium Chloride Crtab 20 Meq Tabcr) 20 meq PO NOW STA Stop: 07/02/22 10:08 Last Admin: 07/02/22 11:24 Dose: 20 meq Documented By: LUPE Medical Decision Making Differential Diagnosis Differential: Gastroenteritis, Food Borne, Esophageal Perforation, , Electrolyte Abnormality, Dehydration, Intraabdominal Infection, UTI/Pyelonephritis, Bowel Obstruction, Biliary Pathology, amongst other pathology entertained. Medical Records Attestation: I reviewed the patient's medical records. Home Medications Current Medication List: was personally reviewed by Laboratory Data Attestation: I reviewed the patient's lab results. Result diagrams: 07/02/22 06:16 07/02/22 06:16 Lab Results 06/30/22 06/30/22 06/30/22 Range/Units 04:00 04:00 04:00 WBC 24.51 H (4.8-10.8) K/ul RBC 5.17 (4.63-6.08) M/uL Hgb 13.5 L (14.0-18.0) g/dl Hct 42.1 (40.1-51.0) % MCV 81.4 (80.0-100.0) fL MCH 26.1 (25.0-34.0) pg MCHC 32.1 (32.0-36.0) g/dL RDW Std Deviation 46.9 H (36.4-46.3) fL RDW Coeff of [place] 15.9 H (11.5-14.5) % Plt Count 421 H (130-400) K/uL MPV 8.8 L (9.4-12.4) fL Immature Gran % (Auto) 1.5 % Neut % (Auto) 88.8 % Lymph % (Auto) 5.0 % [place] % (Auto) 4.5 % Eos % (Auto) 0.0 % Baso % (Auto) 0.2 % Neut # (Auto) 21.77 H (1.4-6.5) K/uL Lymph # (Auto) 1.23 (1.2-3.4) K/uL [place] # (Auto) 1.10 H (0.24-0.82) K/uL Eos # (Auto) 0.00 (0-0.50) K/uL Baso # (Auto) 0.05 (0-0.2) K/uL Immature Gran # (Auto) 0.36 H (0.00-0.02) K/uL Absolute Nucleated RBC 0.02 H (0-0) K/uL Nucleated RBC % (auto) 0.1 % PT 11.9 (9.0-12.0) Seconds INR 1.1 (0.9-1.1) APTT 29.1 (21.0-31.0) Seconds PTT Ratio 1.1 Sodium 136 (136-145) mmol/L Potassium 4.5 (3.5-5.1) mmol/L Chloride 100 (98-107) mmol/L Carbon Dioxide 22 (21-32) mmol/L Anion Gap 14 H (3-11) BUN 28 H (6-23) mg/dl Creatinine 1.48 H (0.6-1.4) mg/dl Est Cr Clr Drug Dosing 39.6 ml/min Est GFR ( Amer) 49.6 ml/min Est GFR (Non-Af Amer) 42.8 ml/min BUN/Creatinine Ratio 18.9 (10-20) Glucose 314 H* (70-99(Fasting)) mg/dl Lactate (0.4-2.0) mmol/L Calcium 9.9 (8.5-10.1) mg/dl Magnesium 2.4 (1.7-2.4) mg/dl Total Bilirubin 0.8 (0.2-1.0) mg/dl AST 22 (13-39) U/L ALT 21 (7-52) U/L Alkaline Phosphatase 65 (34-104) U/L Total Protein 7.8 (6.0-8.3) gm/dl Albumin 4.7 (3.4-5.0) gm/dl Globulin 3.1 (2.5-4.0) gm/dl Albumin/Globulin Ratio 1.5 (0.9-2) Lipase 26 (11-82) U/L SARS-CoV-2, RNA, NAAT (NEGATIVE) 06/30/22 06/30/22 06/30/22 Range/Units 04:24 06:11 08:10 WBC (4.8-10.8) K/ul RBC (4.63-6.08) M/uL Hgb (14.0-18.0) g/dl Hct (40.1-51.0) % MCV (80.0-100.0) fL MCH (25.0-34.0) pg MCHC (32.0-36.0) g/dL RDW Std Deviation (36.4-46.3) fL RDW Coeff of [place] (11.5-14.5) % Plt Count (130-400) K/uL MPV (9.4-12.4) fL Immature Gran % (Auto) % Neut % (Auto) % Lymph % (Auto) % [place] % (Auto) % Eos % (Auto) % Baso % (Auto) % Neut # (Auto) (1.4-6.5) K/uL Lymph # (Auto) (1.2-3.4) K/uL [place] # (Auto) (0.24-0.82) K/uL Eos # (Auto) (0-0.50) K/uL Baso # (Auto) (0-0.2) K/uL Immature Gran # (Auto) (0.00-0.02) K/uL Absolute Nucleated RBC (0-0) K/uL Nucleated RBC % (auto) % PT (9.0-12.0) Seconds INR (0.9-1.1) APTT (21.0-31.0) Seconds PTT Ratio Sodium (136-145) mmol/L Potassium (3.5-5.1) mmol/L Chloride (98-107) mmol/L Carbon Dioxide (21-32) mmol/L Anion Gap (3-11) BUN (6-23) mg/dl Creatinine (0.6-1.4) mg/dl Est Cr Clr Drug Dosing ml/min Est GFR ( Amer) ml/min Est GFR (Non-Af Amer) ml/min BUN/Creatinine Ratio (10-20) Glucose (70-99(Fasting)) mg/dl Lactate 3.8 H* 2.8 H* (0.4-2.0) mmol/L Calcium (8.5-10.1) mg/dl Magnesium (1.7-2.4) mg/dl Total Bilirubin (0.2-1.0) mg/dl AST (13-39) U/L ALT (7-52) U/L Alkaline Phosphatase (34-104) U/L Total Protein (6.0-8.3) gm/dl Albumin (3.4-5.0) gm/dl Globulin (2.5-4.0) gm/dl Albumin/Globulin Ratio (0.9-2) Lipase (11-82) U/L SARS-CoV-2, RNA, NAAT NEGATIVE (NEGATIVE) Imaging Data Radiologist's Impression: CT abdomen and pelvis with contrast: Comparison 01/16/2019. Moderately dilated small bowel left greater than right abdomen with transition point in right lower quadrant, consistent with SBO. Left lower quadrant colostomy. Small hiatal hernia. Small cystic foci bilateral kidneys. 2.2 cm right retroperitoneal cystic structure inferior to the duodenum, similar to prior exam. Arthroplasty right hip. Normal appendix. Radiologist: Ashanti Smith MD MDM Narrative An order was placed for continuous cardiac monitoring. The monitor shows a rate of _70_ with __ rhythm. Patient presents due to concern for SBO which he has had previously. Diarrhea recently although he did start antibiotics from his PCP. Other symptoms more consistent with his prior SBO evolved in the last 24 hours. VS stable. Lasb sent, pt started on meds for nausea and pain as well as IVF and ultimately sent for CT. CT confirmed SBO. Initial lactic acid mildly elevated although was improved on repeat. I feel this is more likely from dehydration and do not suspect evolving ischemic process. Patient and family verbalized understanding of all results and were in agreement with the plan. Case discussed with hospitalist and with surgical PA for consultation for additional evaluation and mgmt. Impression & Plan Nausea & vomiting, SBO (small bowel obstruction), Abdominal pain Discharge Plan Visit Data Chief Complaint: GI Assessment Stated Complaint: PROBLEM WITH BOWELS,HX STROKE ED Provider: Heather Solitario Discharge Problem: Nausea & vomiting, SBO (small bowel obstruction), Abdominal pain Patient Disposition: Admitted As Inpatient Condition: Fair Discharge Instructions Interventions: ED Discharge Assessment Last Done: 06/30/22 10:00
[2022-06-30] MEDS ORDERED: OPTIRAY 350 100ml IV ONE (05:32)
[2022-06-30] MEDS ORDERED: SODIUM CHLORIDE 0.9% 1000ML 1,000 ML IV SCH (07:30)
--- NOTE | 2022-06-30 07:43 | CT Scan Report ---
CT SCAN OF THE ABDOMEN AND PELVIS WITH IV CONTRAST CLINICAL HISTORY: Generalized abdominal pain. Nausea and vomiting. COMPARISON STUDY: Abdominal CT dated 02/02/2019. TECHNIQUE: Following the IV administration of 86 cc of Optiray 350, CT scan of the abdomen and pelvi s is performed from the lung bases to the proximal femora. Images are reviewed in the axial, sagittal , and coronal planes. IV contrast was administered without complication. A dose lowering technique wa s utilized adhering to the principles of ALARA. CT DOSE: 388.65 mGy.cm FINDINGS: Lung bases: The heart is markedly enlarged and without pericardial effusion. The coronary arteries ar e densely calcified. There is a small to moderate hiatal hernia. The lung bases are clear noting biba silar scarring/atelectasis. Liver: The contrast-enhanced liver is normal in size, contour, and attenuation. There is no intrahepa tic biliary ductal dilatation. The hepatic veins and portal veins are patent. Gallbladder: Unremarkable. Spleen: Normal in size and attenuation. Pancreas: Moderately atrophic and grossly unremarkable. Adrenal glands: Unremarkable. Kidneys: The contrast enhanced kidneys demonstrate cortical atrophy and there are without hydronephro sis. The kidneys enhance and excrete symmetrically. Bilateral renal cysts measuring up to 2.2 cm. Add itional subcentimeter cortical hypodensities also likely represent cysts but are too small for defini tive characterization. Abdominal vasculature: There is advanced atherosclerotic calcification and mild ectasia of the abdomi nal aorta. Bowel: There is postsurgical change from left proctocolectomy with a diverting left lower quadrant co lostomy. A Parastomal hernia contains fat and trace fluid. A duodenal diverticulum is incidentally no blanca. Moderate fecal retention is noted in the right colon. The appendix is well-visualized and bandar l. The proximal small bowel loops are distended with air fluid levels. The bowel loops measure up to 3.9 cm in diameter. A transition point is seen in the right lower quadrant on image #375. The distal small bowel is decompressed and the appearance is consistent with a small bowel obstruction. There is trace interloop fluid. No focally thick-walled bowel loops are identified. There is no pneumatosis i ntestinalis or portal venous gas. Peritoneum: There is no intraperitoneal free air or abdominal ascites. A 2.4 cm lobular cystic struct ure in the right retroperitoneum seen on image #258 was also present previously and may represent a l ymphangioma. Lymphadenopathy: None. Pelvic viscera: Evaluation of the pelvis is degraded by streak artifact from a right hip arthroplasty . The prostate gland is surgically absent. The bladder is distended but otherwise normal as imaged. Skeletal structures: The skeletal structures are osteopenic. There is moderate lumbosacral spondylosi s. No lytic or blastic lesions are seen. A right hip arthroplasty is in place. IMPRESSION: 1. Findings are consistent with a small bowel obstruction. A transition point is seen in the right lo wer quadrant and this may be related to adhesions. 2. There is interloop fluid. No focally thick-walled bowel loops are identified. There is no intraper itoneal free air, pneumatosis intestinalis, or portal venous gas. 3. Postsurgical change from proctocolectomy with left lower quadrant colostomy. 4. Marked cardiomegaly. 5. Bladder distention. 6. Additional findings as above. ACT 112: Negative or not required by law. Electronically signed by: Behzad Bradley M.D. 06/30/2022 7:42 AM
--- NOTE | 2022-06-30 08:09 | Surgery Consultation ---
Date of Consultation June 30, 2022 Assessment & Plan (1) Small bowel obstruction: Recurrent, usually resolves within a day or two. Exam is benign and symptoms improved. Can probably hold NGT for now. Will follow. Supervising Physician Co-Signing Physician Notes Patient seen and examined, labs image reviewed, agree with above. 86-year-old male with history of multiple bowel obstructions in the past following colon surgery in 2017, started having pain last night. He recently had a stroke. On exam he is afebrile stable vitals. His abdomen is soft, nontender. There is some air in his colostomy bag but no stool. Films reviewed and agree with the assessment of a small bowel obstruction. We will continue to treat nonoperatively, repeat KUB in the morning, surgery will follow. Okay to restart baby aspirin. History of Present Illness History of Present Illness 86-year-old male with colostomy for colon cancer and multiple small bowel obstructions now presents with abdominal pain that began around 9 PM last night followed by nausea and vomiting. Symptoms improved after medicated in the ED. Last obstruction was about a year ago. He had exploratory laparotomy in 2017 for SBO. Recovering from stroke that occurred about 4 weeks ago Allergies Allergy/AdvReac Type Severity Reaction Status Date / Time tetanus toxoid, adsorbed Allergy Intermediate BLISTERS Verified 06/26/22 09:27 AND EYES SWELLING hydromorphone AdvReac Intermediate HALLUCINATI Verified 06/26/22 09:27 ONS lorazepam AdvReac Intermediate HALLUCINATI Verified 06/26/22 09:27 ONS Home Medications Medication Instructions Recorded Confirmed Type mecobalamin (vitamin B12) 1,000 1,000 mcg PO QPM 07/23/20 06/26/22 History mcg chewable tablet cholecalciferol (vitamin D3) 50 50 mcg PO QAM 12/10/20 06/26/22 History mcg (2,000 unit) capsule nqoihnsg-jxj-zbdyh acid 300 1 tab PO QAM 12/10/20 06/26/22 History mcg-lycopene 600 mcg-lutein 300 mcg tablet (Centrum Silver Men) pantoprazole 40 mg tablet,delayed 40 mg PO DAILY #90 tabs 10/22/21 06/26/22 Rx release rivaroxaban 20 mg tablet (Xarelto) 20 mg PO QAM #90 tabs 12/01/21 06/26/22 Rx glipizide 2.5 mg tablet, extended 2.5 mg PO QAM #90 tabs 01/21/22 06/26/22 Rx release 24 hr metformin 500 mg tablet,extended 500 mg PO QPM #90 tabs 03/23/22 06/26/22 Rx release 24 hr diltiazem HCl 120 mg 120 mg PO DAILY #90 caps 04/02/22 06/26/22 Rx capsule,extended release 24 hr (Cartia XT) lisinopril 2.5 mg tablet 2.5 mg PO DAILY #90 tabs 04/22/22 06/26/22 Rx empagliflozin 10 mg tablet 10 mg PO DAILY #30 tabs 04/28/22 06/26/22 Rx (Jardiance) aluminum hydrox-magnesium carb 95 15 ml PO DAILY PRN 05/27/22 06/26/22 History mg-358 mg/15 mL oral suspension HEARTBURN/INDIGESTION (Gaviscon) wheat dextrin 3 gram/3.5 gram oral 1.5 g PO DAILY 05/27/22 06/26/22 History powder packet (Benefiber Clear Sugar Free(dextrin)) aspirin 81 mg tablet,delayed 81 mg PO DAILY #30 tabs 05/29/22 06/26/22 Rx release (Adult Low Dose Aspirin) levothyroxine 50 mcg tablet 50 mcg PO QAM #90 tabs 06/19/22 06/26/22 Rx glipizide 5 mg tablet, extended 5 mg PO QAM #90 tabs 06/26/22 06/26/22 Rx release 24 hr levofloxacin 750 mg tablet 750 mg PO Q48H #4 tabs 06/26/22 Rx methylprednisolone 4 mg tablets in 4 mg PO .as directed #21 ea 06/26/22 Rx a dose pack metoprolol succinate 100 mg 100 mg PO QAM #90 tabs 06/26/22 06/26/22 Rx tablet,extended release 24 hr simvastatin 40 mg tablet 40 mg PO PM #90 tabs 06/26/22 06/26/22 Rx Patient History Medical History Anemia Atrial fibrillation follows with Dr. 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 Followed by orthopedics. Declined operative management. Small bowel obstruction Squamous cell carcinoma skin of arm Transient ischemic attack (TIA) Surgical History H/O hernia repair History of bowel resection for colon cancer History of cardioversion x2 History of colonoscopy History of colostomy History of esophagogastroduodenoscopy (EGD) 06/2021 Hiatal hernia small, gastritis History of phacoemulsification of cataract of both eyes with intraocular lens implantation History of root canal procedure History of tonsillectomy and adenoidectomy History of total right hip replacement History of wisdom tooth extraction Hx of abdominal surgery bowel obstruction Hx of vasectomy Status post Mohs surgery for basal cell carcinoma Family History Father , age 91 Hypertension Diabetes Mother , age 64 metastatic breast cancer Breast cancer Ovarian cancer Brother Colorectal cancer Other Coronary heart disease No family history of adverse response to anesthesia Denies family history of Prostate cancer Crohn's disease Myocardial infarction Lung cancer Inflammatory bowel disease Social History Smoking Status: Former smoker Tobacco Type: Pipe Age Started Using Tobacco: 22; Age Quit Using Tobacco: 52; Second Hand Exposure: No; Do You Dip or Chew Tobacco: No; Tobacco Cessation Education Requested by Patient: No Hx Alcohol Use: No Hx Substance Use: No Preferred Language: Israeli Communication Ability: Effective Visual Impairment: Diminished Hearing Ability: Normal Bowling Alley Manager Required: No Beliefs That Will Affect Care: None marital status: Current Living Situation: Spouse current occupational 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[employer], [employer] How many Children do You have: 1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 That Helps Us Care for You: No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 Feels Safe at Home: Yes Safety Concerns: Feels Safe At This Time Childhood Exposure to Second-Hand Smoke: Yes (father smoked in home ) caffeine: Yes (drinks coffee daily about half a cup ) Dental Care, Regularly: Yes Physical Activity Frequency: 3-4 Times per Week Physical Activity Frequency Comment: 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 Seatbelt Use: always Sunscreen Use: No (says he does cover up well ) Do you think of yourself as: straight/heterosexual Assistive Devices: Cane Review of Systems Constitutional: no fever and no chills Gastrointestinal: + abdominal pain, + nausea, + vomiting and + diarrhea/loose stools (yesterday x2) Physical Exam Constitutional: WD/WN, vitals as above Respiratory: normal respiratory effort, lungs clear to auscultation Cardiovascular: Rate/Rhythm: regular rate Gastrointestinal (Abdomen): Inspection/Auscultation: + abdominal surgical scar; abdomen not distended Percussion/Palpation: abdomen soft; abdomen nontender Some air, no stool in pouch Results & Data ([facility]) Vital Signs (Past 12 Hours) Vital Signs Temp Pulse Pulse Resp BP BP Pulse Ox 06/30/22 05:36 80 20 130/78 98 06/30/22 03:38 36.5 C 69 24 125/70 99 O2 Del Method 06/30/22 05:36 Room Air 06/30/22 03:38 Room Air PG Care Time/CCT Total # of Minutes Spent Total Time Spent with Patient: Total time spent is greater than 50% in coordination of care (as documented) at patient's floor/unit and/or counseling patient: Coding Level of Care Code 75128 Initial Inpt Care Lvl 1 Diagnoses Small bowel obstruction K56.609
[2022-06-30 09:15] LABS: INR 1.1 (0.9-1.1); Partial Thromboplastin Ratio 1.1; Partial Thromboplastin Time 29.1 Seconds (21.0-31.0); Prothrombin Time 11.9 Seconds (9.0-12.0)
--- NOTE | 2022-06-30 09:17 | History & Physical Report ---
Date of Service June 30, 2022 Assessment & Plan (1) Small bowel obstruction: Plan: With history of colostomy and recurrent SBO's in the past Now presenting with SBO with transition point in the right lower quadrant with interloop edema on imaging, no pneumatosis Nausea/vomiting and abdominal pain are improving and with small amount of gas now in colostomy bag on admission-hold off on NG tube for now but place if symptoms worsen again WBC count elevated 24 but also has been on recent steroid Dosepak for bronchitis. Lactate elevated at 3.8 but now improving to 2.8 with IV fluids. No evidence of sepsis otherwise and blood pressures/heart rate are normal. -Surgery consulted given history of need for lysis of adhesions and recurrent bowel obstructions in the past -Keep n.p.o. 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 (3) CKD (chronic kidney disease): Plan: Renal function slightly worse than baseline likely from mild dehydration with BUN also being elevated. Baseline creatinine 1.2-1.3 Creatinine here today 1.48 -Giving IV fluid hydration -Follow CMP in the morning -Follow urine output -Avoid nephrotoxic medications (4) Anemia: Plan: Hemoglobin stable from previous at 13.5, microcytic Also known to have B12 deficiency but levels checked few months ago were normal Follow CBC -Check iron studies (5) Atrial fibrillation: Plan: Permanent atrial fibrillation Hold p.o. diltiazem and metoprolol -Give scheduled metoprolol 5 Mg IV every 6 hours and can give as needed as needed in between doses -Monitor on telemetry -Starting heparin drip as above especially given recent stroke to replace p.o. Xarelto while n.p.o. (6) B12 deficiency: Plan: As above, recent levels normal Replacement held (7) Colostomy in place: Plan: Noted, for history of colon cancer (8) Diabetes mellitus, type 2: Plan: Hyperglycemic in the ER with blood sugar in the 300s, was given 6 units of regular insulin IV Accu-Cheks every 6 hours while NPO NovoLog supplemental insulin ordered Recent hemoglobin A1c very well controlled at 7.2% Holding home Jardiance, glipizide, metformin (9) GERD (gastroesophageal reflux disease): Plan: Replace p.o. PPI with IV PPI once daily (10) Gout: Plan: No acute issues (11) Hyperlipidemia: Plan: Hold home statin (12) Hypertension: Plan: Blood pressures controlled Holding home p.o. meds and giving IV Lopressor scheduled as above (13) Hypothyroidism: Plan: Hold home levothyroxine while n.p.o. If n.p.o. for more than 3 days, can give IV levothyroxine Recent TSH was normal 1 week ago (14) Peripheral neuropathy: Plan: No acute issues and no medications for this Plan DVT prophylaxis-SCDs, heparin drip Disposition-admit to PCU given need for scheduled IV Lopressor in the setting of being n.p.o. for bowel obstruction. DNR/DNI as discussed with patient with his son at the bedside. His and son are both his decision makers if he is unable to make decisions. History of Present Illness Chief Complaint: Abdominal pain, nausea/vomiting Primary Care Provider: Romulo Barker, This patient is an 86-year-old male with a history of permanent atrial fibrillation on Xarelto, recent ischemic CVA, HTN, DM2, hypothyroidism, GERD, B12 deficiency, hyperlipidemia, and gout who presents to the ER with acute onset of lower abdominal pain and nausea/vomiting. This felt very similar to his previous episodes of bowel obstructions. He has a colostomy that has been in place for 40 years and has required lysis of adhesions in the past for bowel distractions. He reports he was started on levofloxacin and steroids for possible pneumonia or bronchitis about 4 days ago by his PCP and began having some diarrhea and loose stools. He denies any recent fevers or chills. He has a chronic cough which has been no worse than usual. Otherwise was in his normal state of health. In the ER, a CT of the abdomen/pelvis was performed which did indeed show a small obstruction with transition point in the RLQ. He was given Reglan and Benadryl for nausea, IV Tylenol for pain and insulin as well as IV fluids. He was hyperglycemic and had an elevated WBC count of 24,000, as well as an elevated lactate of 3.8 which improved with IV fluid hydration. His vital signs were otherwise normal. Hospitalist service was consulted for admission to the hospital for small bowel obstruction. Allergies Allergy/AdvReac Type Severity Reaction Status Date / Time tetanus toxoid, adsorbed Allergy Intermediate BLISTERS Verified 06/26/22 09:27 AND EYES SWELLING hydromorphone AdvReac Intermediate HALLUCINATI Verified 06/26/22 09:27 ONS lorazepam AdvReac Intermediate HALLUCINATI Verified 06/26/22 09: ONS Home Medications Medication Instructions Recorded Confirmed Type mecobalamin (vitamin B12) 1,000 1,000 mcg PO QPM 07/23/20 06/26/22 History mcg chewable tablet cholecalciferol (vitamin D3) 50 50 mcg PO QAM 12/10/20 06/26/22 History mcg (2,000 unit) capsule odtonawg-pil-kfxly acid 300 1 tab PO QAM 12/10/20 06/26/22 History mcg-lycopene 600 mcg-lutein 300 mcg tablet (Centrum Silver Men) pantoprazole 40 mg tablet,delayed 40 mg PO DAILY #90 tabs 10/22/21 06/26/22 Rx release rivaroxaban 20 mg tablet (Xarelto) 20 mg PO QAM #90 tabs 12/01/21 06/26/22 Rx glipizide 2.5 mg tablet, extended 2.5 mg PO QAM #90 tabs 01/21/22 06/26/22 Rx release 24 hr metformin 500 mg tablet,extended 500 mg PO QPM #90 tabs 03/23/22 06/26/22 Rx release 24 hr diltiazem HCl 120 mg 120 mg PO DAILY #90 caps 04/02/22 06/26/22 Rx capsule,extended release 24 hr (Cartia XT) lisinopril 2.5 mg tablet 2.5 mg PO DAILY #90 tabs 04/22/22 06/26/22 Rx empagliflozin 10 mg tablet 10 mg PO DAILY #30 tabs 09/13/22 11/11/22 Rx (Jardiance) aluminum hydrox-magnesium carb 95 15 ml PO DAILY PRN 05/27/22 06/26/22 History mg-358 mg/15 mL oral suspension HEARTBURN/INDIGESTION (Gaviscon) wheat dextrin 3 gram/3.5 gram oral 1.5 g PO DAILY 05/27/22 06/26/22 History powder packet (Benefiber Clear Sugar Free(dextrin)) aspirin 81 mg tablet,delayed 81 mg PO DAILY #30 tabs 05/29/22 06/26/22 Rx release (Adult Low Dose Aspirin) levothyroxine 50 mcg tablet 50 mcg PO QAM #90 tabs 06/19/22 06/26/22 Rx glipizide 5 mg tablet, extended 5 mg PO QAM #90 tabs 06/26/22 06/26/22 Rx release 24 hr levofloxacin 750 mg tablet 750 mg PO Q48H #4 tabs 06/26/22 Rx methylprednisolone 4 mg tablets in 4 mg PO .as directed #21 ea 06/26/22 Rx a dose pack metoprolol succinate 100 mg 100 mg PO QAM #90 tabs 06/26/22 06/26/22 Rx tablet,extended release 24 hr simvastatin 40 mg tablet 40 mg PO PM #90 tabs 06/26/22 06/26/22 Rx Past Med/Surg History Medical History Anemia Atrial fibrillation follows with Dr. 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 Followed by orthopedics. Declined operative management. Small bowel obstruction Squamous cell carcinoma skin of arm Transient ischemic attack (TIA) Surgical History H/O hernia repair History of bowel resection for colon cancer History of cardioversion x2 History of colonoscopy History of colostomy History of esophagogastroduodenoscopy (EGD) 06/2021 Hiatal hernia small, gastritis History of phacoemulsification of cataract of both eyes with intraocular lens implantation History of root canal procedure History of tonsillectomy and adenoidectomy History of total right hip replacement History of wisdom tooth extraction Hx of abdominal surgery bowel obstruction Hx of vasectomy Status post Mohs surgery for basal cell carcinoma Family History Father , age 91 Hypertension Diabetes Mother , age 64 metastatic breast cancer Breast cancer Ovarian cancer Brother Colorectal cancer Other Coronary heart disease No family history of adverse response to anesthesia Denies family history of Prostate cancer Crohn's disease Myocardial infarction Lung cancer Inflammatory bowel disease Social History Smoking Status: Former smoker Tobacco Type: Pipe Age Started Using Tobacco: 22; Age Quit Using Tobacco: 52; Second Hand Exposure: No; Hx Alcohol Use: No Hx Substance Use: No Preferred Language: Vietnamese Communication Ability: Effective Visual Impairment: Diminished Hearing Ability: Normal Student Services Dean Required: No Beliefs That Will Affect Care: None marital status: Current Living Situation: Spouse current occupational 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, [employer] How many Children do You have: 1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 Feels Safe at Home: Yes Childhood Exposure to Second-Hand Smoke: Yes (father smoked in home ) caffeine: Yes (drinks coffee daily about half a cup ) Dental Care, Regularly: Yes Physical Activity Frequency: 3-4 Times per Week Physical Activity Frequency Comment: 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 Seatbelt Use: always Sunscreen Use: No (says he does cover up well ) Do you think of yourself as: straight/heterosexual Assistive Devices: Cane Review of Systems Review of Systems: All systems reviewed & are unremarkable except as noted in HPI & below Physical Exam Constitutional: WD/WN, vitals as above Eyes: PERRL, conjunctivae normal, anicteric sclerae ENMT: external ear and nose normal, oropharynx normal Neck: trachea midline, no thyromegaly Respiratory: normal respiratory effort, lungs clear to auscultation Cardiovascular: Rate/Rhythm: regular rate and + irregularly irregular Heart Sounds: no murmur Vessels: dorsalis pedis pulses present Extremities: no calf tenderness and no edema Chest (Breasts): Chest: normal inspection of chest Gastrointestinal (Abdomen): Inspection/Auscultation: + hypoactive bowel sounds (Some bowel sounds present); + abdomen abnormal to inspection (Colostomy bag with small amount of gas, no stool) and abdomen not distended Percussion/Palpation: + abdomen tender (Right greater than left lower quadrant without guarding or rebound) and abdomen soft; no guarding Musculoskeletal: Extremities: extremities normal to inspection; no cyanosis and no clubbing Skin: no rashes, warm and dry Neurologic: moves all extremities and awake; no focal motor deficits Speech / Cognition: + expressive aphasia (Occasional) Psychiatric: A+Ox3, euthymic affect Lymphatic: no lymphedema Results & Data Results & Data ([facility]) Vital Signs (Past 12 Hours) Vital Signs Temp Pulse Pulse Resp BP BP Pulse Ox 06/30/22 05:36 80 20 130/78 98 06/30/22 03:38 36.5 C 69 24 125/70 99 O2 Del Method 06/30/22 05:36 Room Air 06/30/22 03:38 Room Air Laboratory Results 06/30/22 06/30/22 06/30/22 Range/Units 08:10 06:11 04:24 WBC (4.8-10.8) K/ul RBC (4.63-6.08) M/uL Hgb (14.0-18.0) g/dl Hct (40.1-51.0) % MCV (80.0-100.0) fL MCH (25.0-34.0) pg MCHC (32.0-36.0) g/dL RDW Std Deviation (36.4-46.3) fL RDW Coeff of Parisa (11.5-14.5) % Plt Count (130-400) K/uL MPV (9.4-12.4) fL Immature Gran % (Auto) % Neut % (Auto) % Lymph % (Auto) % Butts % (Auto) % Eos % (Auto) % Baso % (Auto) % Neut # (Auto) (1.4-6.5) K/uL Lymph # (Auto) (1.2-3.4) K/uL Butts # (Auto) (0.24-0.82) K/uL Eos # (Auto) (0-0.50) K/uL Baso # (Auto) (0-0.2) K/uL Immature Gran # (Auto) (0.00-0.02) K/uL Absolute Nucleated RBC (0-0) K/uL Nucleated RBC % (auto) % PT INR APTT PTT Ratio Sodium (136-145) mmol/L Potassium (3.5-5.1) mmol/L Chloride (98-107) mmol/L Carbon Dioxide (21-32) mmol/L Anion Gap (3-11) BUN (6-23) mg/dl Creatinine (0.6-1.4) mg/dl Est Cr Clr Drug Dosing ml/min Est GFR ( Amer) ml/min Est GFR (Non-Af Amer) ml/min BUN/Creatinine Ratio (10-20) Glucose (70-99(Fasting)) mg/dl Lactate 2.8 H* 3.8 H* (0.4-2.0) mmol/L Calcium (8.5-10.1) mg/dl Magnesium (1.7-2.4) mg/dl Total Bilirubin (0.2-1.0) mg/dl AST (13-39) U/L ALT (7-52) U/L Alkaline Phosphatase (34-104) U/L Total Protein (6.0-8.3) gm/dl Albumin (3.4-5.0) gm/dl Globulin (2.5-4.0) gm/dl Albumin/Globulin Ratio (0.9-2) Lipase (11-82) U/L SARS-CoV-2, RNA, NAAT NEGATIVE (NEGATIVE) 06/30/22 06/30/22 06/30/22 Range/Units 04:00 04:00 04:00 WBC 24.51 H (4.8-10.8) K/ul RBC 5.17 (4.63-6.08) M/uL Hgb 13.5 L (14.0-18.0) g/dl Hct 42.1 (40.1-51.0) % MCV 81.4 (80.0-100.0) fL MCH 26.1 (25.0-34.0) pg MCHC 32.1 (32.0-36.0) g/dL RDW Std Deviation 46.9 H (36.4-46.3) fL RDW Coeff of Parisa 15.9 H (11.5-14.5) % Plt Count 421 H (130-400) K/uL MPV 8.8 L (9.4-12.4) fL Immature Gran % (Auto) 1.5 % Neut % (Auto) 88.8 % Lymph % (Auto) 5.0 % Butts % (Auto) 4.5 % Eos % (Auto) 0.0 % Baso % (Auto) 0.2 % Neut # (Auto) 21.77 H (1.4-6.5) K/uL Lymph # (Auto) 1.23 (1.2-3.4) K/uL Butts # (Auto) 1.10 H (0.24-0.82) K/uL Eos # (Auto) 0.00 (0-0.50) K/uL Baso # (Auto) 0.05 (0-0.2) K/uL Immature Gran # (Auto) 0.36 H (0.00-0.02) K/uL Absolute Nucleated RBC 0.02 H (0-0) K/uL Nucleated RBC % (auto) 0.1 % PT Pending INR Pending APTT Pending PTT Ratio Pending Sodium 136 (136-145) mmol/L Potassium 4.5 (3.5-5.1) mmol/L Chloride 100 (98-107) mmol/L Carbon Dioxide 22 (21-32) mmol/L Anion Gap 14 H (3-11) BUN 28 H (6-23) mg/dl Creatinine 1.48 H (0.6-1.4) mg/dl Est Cr Clr Drug Dosing 39.6 ml/min Est GFR ( Amer) 49.6 ml/min Est GFR (Non-Af Amer) 42.8 ml/min BUN/Creatinine Ratio 18.9 (10-20) Glucose 314 H* (70-99(Fasting)) mg/dl Lactate (0.4-2.0) mmol/L Calcium 9.9 (8.5-10.1) mg/dl Magnesium 2.4 (1.7-2.4) mg/dl Total Bilirubin 0.8 (0.2-1.0) mg/dl AST 22 (13-39) U/L ALT 21 (7-52) U/L Alkaline Phosphatase 65 (34-104) U/L Total Protein 7.8 (6.0-8.3) gm/dl Albumin 4.7 (3.4-5.0) gm/dl Globulin 3.1 (2.5-4.0) gm/dl Albumin/Globulin Ratio 1.5 (0.9-2) Lipase 26 (11-82) U/L SARS-CoV-2, RNA, NAAT (NEGATIVE) Diagnostic Findings Abdomen/Pelvis CT 06/30/22 04:22 CT SCAN OF THE ABDOMEN AND PELVIS WITH IV CONTRAST CLINICAL HISTORY: Generalized abdominal pain. Nausea and vomiting. COMPARISON STUDY: Abdominal CT dated 02/02/2019. TECHNIQUE: Following the IV administration of 86 cc of Optiray 350, CT scan of the abdomen and pelvis is performed from the lung bases to the proximal femora. Images are reviewed in the axial, sagittal, and coronal planes. IV contrast was administered without complication. A dose lowering technique was utilized adhering to the principles of ALARA. CT DOSE: 388.65 mGy.cm FINDINGS: Lung bases: The heart is markedly enlarged and without pericardial effusion. The coronary arteries are densely calcified. There is a small to moderate hiatal hernia. The lung bases are clear noting bibasilar scarring/atelectasis. Liver: The contrast-enhanced liver is normal in size, contour, and attenuation. There is no intrahepatic biliary ductal dilatation. The hepatic veins and portal veins are patent. Gallbladder: Unremarkable. Spleen: Normal in size and attenuation. Pancreas: Moderately atrophic and grossly unremarkable. Adrenal glands: Unremarkable. Kidneys: The contrast enhanced kidneys demonstrate cortical atrophy and there are without hydronephrosis. The kidneys enhance and excrete symmetrically. Bilateral renal cysts measuring up to 2.2 cm. Additional subcentimeter cortical hypodensities also likely represent cysts but are too small for definitive characterization. Abdominal vasculature: There is advanced atherosclerotic calcification and mild ectasia of the abdominal aorta. Bowel: There is postsurgical change from left proctocolectomy with a diverting left lower quadrant colostomy. A Parastomal hernia contains fat and trace fluid. A duodenal diverticulum is incidentally noted. Moderate fecal retention is noted in the right colon. The appendix is well-visualized and normal. The proximal small bowel loops are distended with air fluid levels. The bowel loops measure up to 3.9 cm in diameter. A transition point is seen in the right lower quadrant on image #375. The distal small bowel is decompressed and the appearance is consistent with a small bowel obstruction. There is trace interloop fluid. No focally thick-walled bowel loops are identified. There is no pneumatosis intestinalis or portal venous gas. Peritoneum: There is no intraperitoneal free air or abdominal ascites. A 2.4 cm lobular cystic structure in the right retroperitoneum seen on image #258 was also present previously and may represent a lymphangioma. Lymphadenopathy: None. Pelvic viscera: Evaluation of the pelvis is degraded by streak artifact from a right hip arthroplasty. The prostate gland is surgically absent. The bladder is distended but otherwise normal as imaged. Skeletal structures: The skeletal structures are osteopenic. There is moderate lumbosacral spondylosis. No lytic or blastic lesions are seen. A right hip arthroplasty is in place. IMPRESSION: 1. Findings are consistent with a small bowel obstruction. A transition point is seen in the right lower quadrant and this may be related to adhesions. 2. There is interloop fluid. No focally thick-walled bowel loops are identified. There is no intraperitoneal free air, pneumatosis intestinalis, or portal venous gas. 3. Postsurgical change from proctocolectomy with left lower quadrant colostomy. 4. Marked cardiomegaly. 5. Bladder distention. 6. Additional findings as above. ACT 112: Negative or not required by law. Electronically signed by: Behzad Bradley M.D. 06/30/2022 7:42 AM Code Status & VTE Plan Code Status DNR/DNI VTE Prophylaxis Plan VTE Prophylaxis will be ordered: Yes PG Care Time/CCT Total # of Minutes Spent Total Time Spent with Patient: Total time spent is greater than 50% in coordination of care (as documented) at patient's floor/unit and/or counseling patient: Coding Level of Care Code 15254 Initial Inpt Care Lvl 3 Diagnoses Small bowel obstruction K56.609 CVA (cerebral vascular accident) I63.9 CKD (chronic kidney disease) N18.9 Anemia D64.9 Atrial fibrillation I48.91 B12 deficiency E53.[address] Z93.3 Diabetes mellitus, type 2 E11.9 GERD (gastroesophageal reflux disease) K21.9 Gout M10.9 Hyperlipidemia E78.5 Hypertension I10 Hypothyroidism E03.9 Peripheral neuropathy G62.9
[2022-06-30] MEDS ORDERED: Heparin IV Adult Wt-Based Standard *NO* Bolus Protocol IV ONE (10:26)
[2022-06-30] MEDS ORDERED: GLUCOSE 40% GEL 15 GM TUBE PO PRN (10:26)
[2022-06-30] MEDS ORDERED: DEXTROSE 50% 50 ML SYRINGE IV PRN (10:26)
[2022-06-30] MEDS ORDERED: GLUCOSE 10 TAB/TUBE PO PRN (10:26)
[2022-06-30] MEDS ORDERED: GLUCAGON FOR INJ 1 MG VIAL SQ PRN (10:26)
[2022-06-30] MEDS ORDERED: CARBOHYDRATES FOR HYPOGLYCEMIA PO PRN (10:26)
[2022-06-30] MEDS ORDERED: ONDANSETRON INJ 2 MG/ML 2 ML VIAL IV PRN (10:26)
[2022-06-30] MEDS: LACTATED RINGER'S 1,000 ML IV SCH ×2 (10:48→21:18)
[2022-06-30] MEDS: METOPROLOL TARTRATE 1 MG/ML VIAL IV SCH ×3 (10:53→17:37)
[2022-06-30] MEDS: PANTOprazole 40 MG in SYRINGE 0 ML IV SCH (11:12)
[2022-06-30] MEDS: HEPARIN SODIUM/DEXTROSE 25,000 UNITS/500 ML BAG IV SCH (12:25)
[2022-06-30] MEDS: INSULIN ASPART PER UNIT SC SCH ×2 (12:28→17:36)
[2022-06-30] MEDS: ASPIRIN 81 MG CHEW PO SCH (17:36)
[2022-06-30] MEDS: ACETAMINOPHEN 1,000 MG/100 ML VIAL IV PRN (17:47)
[2022-06-30 19:51] LABS: Partial Thromboplastin Ratio 3.4
[2022-06-30 20:01] LABS: Partial Thromboplastin Time 94.1 Seconds (21.0-31.0)
[2022-07-01] MEDS: METOPROLOL TARTRATE 1 MG/ML VIAL IV SCH ×4 (00:29→17:15)
[2022-07-01] MEDS: INSULIN ASPART PER UNIT SC SCH ×4 (00:29→17:14)
[2022-07-01] MEDS: ACETAMINOPHEN 1,000 MG/100 ML VIAL IV PRN (03:09)
[2022-07-01 03:18] LABS: Basophils # (auto) 0.04 K/uL (0-0.2); Basophils % (auto) 0.4 %; Eosinophils # (auto) 0.03 K/uL (0-0.50); Eosinophils % (auto) 0.3 %; Hematocrit (blood only) 35.5 % (40.1-51.0); Hemoglobin 11.2 g/dl (14.0-18.0); Immature Granulocytes # (auto) 0.16 K/uL (0.00-0.02); Immature Granulocytes % (auto) 1.6 %; Lymphocytes % (auto) 13.6 %; Mean Corpuscular Hgb Conc 31.5 g/dL (32.0-36.0); Mean Corpuscular Volume 82.6 fL (80.0-100.0); Mean Platelet Volume 8.6 fL (9.4-12.4); Monocytes # (auto) 0.81 K/uL (0.24-0.82); Monocytes % (auto) 7.9 %; Neutrophils # (auto) 7.82 K/uL (1.4-6.5); Neutrophils % (auto) 76.2 %; Platelet Count 281 K/uL (130-400); RDW Coefficient of Variation 15.9 % (11.5-14.5); RDW Standard Deviation 47.5 fL (36.4-46.3); White Blood Count 10.26 K/ul (4.8-10.8)
[2022-07-01 03:27] LABS: Partial Thromboplastin Ratio 3.7
[2022-07-01 03:29] LABS: Partial Thromboplastin Time 101.9 Seconds (21.0-31.0)
[2022-07-01 03:33] LABS: Albumin Globulin Ratio 1.5 (0.9-2); Albumin Level 3.5 gm/dl (3.4-5.0); Bilirubin,Total 0.8 mg/dl (0.2-1.0); Calcium 8.4 mg/dl (8.5-10.1); Creatinine Clr Calc Pharmacy 50.5 ml/min; Est GFR (African American) 66.7 ml/min; Est GFR (Non-African American) 57.5 ml/min; Globulin 2.3 gm/dl (2.5-4.0); Magnesium 2.2 mg/dl (1.7-2.4); Phosphorus 3.4 mg/dl (2.5-4.9); Potassium 4.2 mmol/L (3.5-5.1); Total Protein 5.8 gm/dl (6.0-8.3)
[2022-07-01 03:39] LABS: Ferritin 12.7 ng/ml (8-388)
--- NOTE | 2022-07-01 08:34 | XRay Report ---
KUB CLINICAL HISTORY: Small bowel obstruction. FINDINGS: 2 AP, portable, supine abdominal radiographs are correlated with abdominal CT dated 022. There is evidence of persistent small bowel obstruction. Gaseous distention of the small bowel i s similar to previous, with loops measuring up to 4.3 cm. No evidence of intraperitoneal free air is seen on the supine images. There is fecal retention in the right colon. Postoperative changes surgica l clips is noted in the pelvis. There are no abnormal abdominal calcifications. Excreted IV contrast is suggested within the bladder. The skeletal structures are osteopenic but appear intact. There is l umbosacral spondylosis. A right hip arthroplasty is in place. IMPRESSION: Persistent small bowel obstruction. Electronically signed by: Behzad Bradley M.D. 07/01/2022 8:32 AM
[2022-07-01] MEDS: ASPIRIN 81 MG CHEW PO SCH (08:48)
--- NOTE | 2022-07-01 09:38 | Surgery Progress Note ---
Date of Service July 01, 2022 Assessment & Plan (1) Small bowel obstruction: Plan: Patient here with recurrent SBO, history of colon surgery 2017 He is feeling some improvement in symptoms. mild abd pain, no nausea There is gas in ostomy, no stool real output yet KUB today showing persistent SBO Can trial on some clears today and see how he fairs as ostomy bag w/ + gas Admission and Anticipated Discharge Date Admission Date: June 30, 2022 Supervising Physician Co-Signing Physician Notes Patient seen and examined, labs and imaging reviewed, agree with above. Resolving SBO. Is air in the bag and is passing stool through it. Feels much better. Tolerated clear liquid tray. On exam afebrile stable vitals. Abdomen soft, less distended, nontender. Colostomy with air in bag and with firm stool. KUB personally reviewed and interpreted and agree with the assessment of persistent dilated bowel. Clinically his bowel obstruction is improving. We will slowly advance diet to low fiber. Start bowel regimen. Subjective Patient reports feeling some improvement in symptoms. Denies nausea. Still with intermittent abdominal pain, but only taking Tylenol. Some gas in noted in ostomy bag, no real stool output yet. Physical Exam Physical Exam: awake/alert, no distress Gastrointestinal (Abdomen): Percussion/Palpation: + abdomen tender (mild lower abdominal discomfort, mostly under inferior to ostomy ) and abdomen soft Results & Data ([facility]) Vital Signs (Past 12 Hours) Vital Signs Temp Pulse Pulse Resp BP BP Pulse Ox 07/01/22 07:40 75 07/01/22 07:39 36.3 C L 77 18 135/93 97 07/01/22 06:06 83 137/87 07/01/22 03:38 36.6 C 77 18 152/93 H 98 07/01/22 03:36 64 07/01/22 00:29 58 L 105/71 06/30/22 23:36 36.6 C 75 20 105/71 97 O2 Del Method 07/01/22 07:40 07/01/22 07:39 Room Air 07/01/22 06:06 07/01/22 03:38 Room Air 07/01/22 03:36 07/01/22 00:29 06/30/22 23:36 Room Air PG Care Time/CCT Total # of Minutes Spent Total Time Spent with Patient: Total time spent is greater than 50% in coordination of care (as documented) at patient's floor/unit and/or counseling patient: Coding Level of Care Code 70847 Subseq Hosp Care Lvl 1 Diagnoses Small bowel obstruction K56.609
[2022-07-01 10:25] LABS: Partial Thromboplastin Ratio 2.4
[2022-07-01 10:29] LABS: Partial Thromboplastin Time 65.8 Seconds (21.0-31.0)
--- NOTE | 2022-07-01 11:29 | Hospitalist Progress Note ---
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 Lactate elevated at 3.8 but now improved to normal with IV fluids. No evidence of sepsis otherwise and blood pressures/heart rate are normal. KUB 07/01 with persistent SBO but bowel sounds improving, no longer tender, no nausea--> SUrgeyr has advanced diet to clears but I advised him to take this very cautiously -Surgery consulted given history of need for lysis of adhesions and recurrent bowel obstructions in the past -continue maintenance IV fluids with LR at 80 mils per hour, watch volume status -Replaced necessary medications with IV -IV Tylenol as needed for pain given history of hallucinations with opioids -Follow CBC, CMP, mag, Phos in the morning (2) Atrial fibrillation: Plan: Permanent atrial fibrillation Holding p.o. diltiazem and metoprolol Rates go to 170s with any exertion but quickly go back to normal with rest. Sometimes rates in to the 50s with 2 second pauses -continue scheduled metoprolol 5 Mg IV every 6 hours and can give as needed as needed in between doses -once taking po, wll convert back to usual po meds -Monitor on telemetry -continue heparin drip as above especially given recent stroke to replace p.o. Xarelto while n.p.o. 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 PPI with IV PPI once daily while NPO (10) Gout: Plan: No acute issues (11) Hyperlipidemia: Plan: Hold home statin (12) Hypertension: Plan: Blood pressures controlled Holding home p.o. meds and giving IV Lopressor scheduled as above (13) Hypothyroidism: Plan: Hold home levothyroxine while n.p.o. If n.p.o. for more than 3 days, can give IV levothyroxine Recent TSH was normal 1 week ago (14) Peripheral neuropathy: Plan: No acute issues and no medications for this Plan DVT prophylaxis-SCDs, heparin drip Disposition-continued stay on PCU given need for scheduled IV Lopressor in the setting of being n.p.o. for bowel obstruction. DNR/DNI as discussed with patient with his son at the bedside. His and son are both his decision makers if he is unable to make decisions. Updated his son Noam by phone on 07/01 Admission and Anticipated Discharge Date Admission Date: June 30, 2022 Subjective Pt had some abd cramping yesterday evening but was relieved with IV tylenol. Passed a moderate amount of gas into his colostomy this AM but no stool. Denies any current abd pain, no nausea. Tele with Afib with rates in to the 170-180s only with walking to the bathroom which makes him feel a little winded and lightheaded. HR back to the 90s as soon as he sits for a minute. Review of Systems Review of Systems: All systems reviewed & are unremarkable except as noted in HPI & below Physical Exam Constitutional: WD/WN, vitals as above Eyes: + anicteric sclerae Neck: trachea midline, no thyromegaly Respiratory: normal respiratory effort, lungs clear to auscultation Cardiovascular: Rate/Rhythm: regular rate and + irregularly irregular Heart Sounds: no murmur Extremities: no calf tenderness and no edema Chest (Breasts): Chest: normal inspection of chest Gastrointestinal (Abdomen): Inspection/Auscultation: normal bowel sounds; + abdomen abnormal to inspection (Colostomy bag with small amount of gas, no stool) and abdomen not distended Percussion/Palpation: abdomen soft; abdomen nontender Musculoskeletal: Extremities: extremities normal to inspection; no cyanosis and no clubbing Skin: no rashes, warm and dry Neurologic: moves all extremities and awake; no focal motor deficits Speech / Cognition: + expressive aphasia (Occasional) Psychiatric: A+Ox3, euthymic affect Lymphatic: no lymphedema Results & Data Results & Data ([facility]) Vital Signs (Past 12 Hours) Vital Signs Temp Pulse Pulse Resp BP BP Pulse Ox 07/01/22 07:40 75 07/01/22 07:39 36.3 C L 77 18 135/93 97 07/01/22 06:06 83 137/87 07/01/22 03:38 36.6 C 77 18 152/93 H 98 07/01/22 03:36 64 07/01/22 00:29 58 L 105/71 06/30/22 23:36 36.6 C 75 20 105/71 97 O2 Del Method 07/01/22 07:40 07/01/22 07:39 Room Air 07/01/22 06:06 07/01/22 03:38 Room Air 07/01/22 03:36 07/01/22 00:29 06/30/22 23:36 Room Air Laboratory Results 07/01/22 07/01/22 07/01/22 Range/Units 09:30 05:54 02:41 WBC (4.8-10.8) K/ul RBC (4.63-6.08) M/uL Hgb (14.0-18.0) g/dl Hct (40.1-51.0) % MCV (80.0-100.0) fL MCH (25.0-34.0) pg MCHC (32.0-36.0) g/dL RDW Std Deviation (36.4-46.3) fL RDW Coeff of [place] (11.5-14.5) % Plt Count (130-400) K/uL MPV (9.4-12.4) fL Immature Gran % (Auto) % Neut % (Auto) % Lymph % (Auto) % Creek % (Auto) % Eos % (Auto) % Baso % (Auto) % Neut # (Auto) (1.4-6.5) K/uL Lymph # (Auto) (1.2-3.4) K/uL Creek # (Auto) (0.24-0.82) K/uL Eos # (Auto) (0-0.50) K/uL Baso # (Auto) (0-0.2) K/uL Immature Gran # (Auto) (0.00-0.02) K/uL APTT 65.8 H* 101.9 H* (21.0-31.0) Seconds PTT Ratio 2.4 3.7 Sodium (136-145) mmol/L Potassium (3.5-5.1) mmol/L Chloride (98-107) mmol/L Carbon Dioxide (21-32) mmol/L Anion Gap (3-11) BUN (6-23) mg/dl Creatinine (0.6-1.4) mg/dl Est Cr Clr Drug Dosing ml/min Est GFR ( Amer) ml/min Est GFR (Non-Af Amer) ml/min BUN/Creatinine Ratio (10-20) Glucose (70-99(Fasting)) mg/dl POC Glucose 84 (70-99) mg/dl Calcium (8.5-10.1) mg/dl Phosphorus (2.5-4.9) mg/dl Magnesium (1.7-2.4) mg/dl Iron (35-175) mcg/dl TIBC (250-450) mcg/dl Unsaturated IBC (155-355) mcg/dl Transferrin % Sat (20-50) % Ferritin (8-388) ng/ml Total Bilirubin (0.2-1.0) mg/dl AST (13-39) U/L ALT (7-52) U/L Alkaline Phosphatase (34-104) U/L Total Protein (6.0-8.3) gm/dl Albumin (3.4-5.0) gm/dl Globulin (2.5-4.0) gm/dl Albumin/Globulin Ratio (0.9-2) 07/01/22 07/01/22 07/01/22 Range/Units 02:41 02:41 00:13 WBC 10.26 D (4.8-10.8) K/ul RBC 4.30 L (4.63-6.08) M/uL Hgb 11.2 L (14.0-18.0) g/dl Hct 35.5 L (40.1-51.0) % MCV 82.6 (80.0-100.0) fL MCH 26.0 (25.0-34.0) pg MCHC 31.5 L (32.0-36.0) g/dL RDW Std Deviation 47.5 H (36.4-46.3) fL RDW Coeff of Paris[place] 15.9 H (11.5-14.5) % Plt Count 281 (130-400) K/uL MPV 8.6 L (9.4-12.4) fL Immature Gran % (Auto) 1.6 % Neut % (Auto) 76.2 % Lymph % (Auto) 13.6 % Creek % (Auto) 7.9 % Eos % (Auto) 0.3 % Baso % (Auto) 0.4 % Neut # (Auto) 7.82 H (1.4-6.5) K/uL Lymph # (Auto) 1.40 (1.2-3.4) K/uL Creek # (Auto) 0.81 (0.24-0.82) K/uL Eos # (Auto) 0.03 (0-0.50) K/uL Baso # (Auto) 0.04 (0-0.2) K/uL Immature Gran # (Auto) 0.16 H (0.00-0.02) K/uL APTT (21.0-31.0) Seconds PTT Ratio Sodium 137 (136-145) mmol/L Potassium 4.2 (3.5-5.1) mmol/L Chloride 106 (98-107) mmol/L Carbon Dioxide 27 (21-32) mmol/L Anion Gap 4 (3-11) BUN 22 (6-23) mg/dl Creatinine 1.16 D (0.6-1.4) mg/dl Est Cr Clr Drug Dosing 50.5 ml/min Est GFR ( Amer) 66.7 ml/min Est GFR (Non-Af Amer) 57.5 ml/min BUN/Creatinine Ratio 19.0 (10-20) Glucose 81 (70-99(Fasting)) mg/dl POC Glucose 100 H (70-99) mg/dl Calcium 8.4 L (8.5-10.1) mg/dl Phosphorus 3.4 (2.5-4.9) mg/dl Magnesium 2.2 (1.7-2.4) mg/dl Iron 33 L (35-175) mcg/dl TIBC 314 (250-450) mcg/dl Unsaturated IBC 281 (155-355) mcg/dl Transferrin % Sat 11 L (20-50) % Ferritin 12.7 (8-388) ng/ml Total Bilirubin 0.8 (0.2-1.0) mg/dl AST 17 (13-39) U/L ALT 14 (7-52) U/L Alkaline Phosphatase 46 (34-104) U/L Total Protein 5.8 L D (6.0-8.3) gm/dl Albumin 3.5 (3.4-5.0) gm/dl Globulin 2.3 L (2.5-4.0) gm/dl Albumin/Globulin Ratio 1.5 (0.9-2) 06/30/22 06/30/22 06/30/22 Range/Units 18:55 16:34 12:07 WBC (4.8-10.8) K/ul RBC (4.63-6.08) M/uL Hgb (14.0-18.0) g/dl Hct (40.1-51.0) % MCV (80.0-100.0) fL MCH (25.0-34.0) pg MCHC (32.0-36.0) g/dL RDW Std Deviation (36.4-46.3) fL RDW Coeff of [place] (11.5-14.5) % Plt Count (130-400) K/uL MPV (9.4-12.4) fL Immature Gran % (Auto) % Neut % (Auto) % Lymph % (Auto) % Creek % (Auto) % Eos % (Auto) % Baso % (Auto) % Neut # (Auto) (1.4-6.5) K/uL Lymph # (Auto) (1.2-3.4) K/uL Creek # (Auto) (0.24-0.82) K/uL Eos # (Auto) (0-0.50) K/uL Baso # (Auto) (0-0.2) K/uL Immature Gran # (Auto) (0.00-0.02) K/uL APTT 94.1 H* (21.0-31.0) Seconds PTT Ratio 3.4 Sodium (136-145) mmol/L Potassium (3.5-5.1) mmol/L Chloride (98-107) mmol/L Carbon Dioxide (21-32) mmol/L Anion Gap (3-11) BUN (6-23) mg/dl Creatinine (0.6-1.4) mg/dl Est Cr Clr Drug Dosing ml/min Est GFR ( Amer) ml/min Est GFR (Non-Af Amer) ml/min BUN/Creatinine Ratio (10-20) Glucose (70-99(Fasting)) mg/dl POC Glucose 110 H 99 (70-99) mg/dl Calcium (8.5-10.1) mg/dl Phosphorus (2.5-4.9) mg/dl Magnesium (1.7-2.4) mg/dl Iron (35-175) mcg/dl TIBC (250-450) mcg/dl Unsaturated IBC (155-355) mcg/dl Transferrin % Sat (20-50) % Ferritin (8-388) ng/ml Total Bilirubin (0.2-1.0) mg/dl AST (13-39) U/L ALT (7-52) U/L Alkaline Phosphatase (34-104) U/L Total Protein (6.0-8.3) gm/dl Albumin (3.4-5.0) gm/dl Globulin (2.5-4.0) gm/dl Albumin/Globulin Ratio (0.9-2) PG Care Time/CCT Total # of Minutes Spent Total Time Spent with Patient: Total time spent is greater than 50% in coordination of care (as documented) at patient's floor/unit and/or counseling patient: Coding Level of Care Code 55284 Subseq Hosp Care Lvl 2 Diagnoses Small bowel obstruction K56.609 Atrial fibrillation I48.91 Anemia D64.9 CVA (cerebral vascular accident) I63.9 B12 deficiency E53.8 CKD (chronic kidney disease) N18.[address] Z93.3 Diabetes mellitus, type 2 E11.9 GERD (gastroesophageal reflux disease) K21.9 Gout M10.9 Hyperlipidemia E78.5 Hypertension I10 Hypothyroidism E03.9 Peripheral neuropathy G62.9
[2022-07-01] MEDS: HEPARIN SODIUM/DEXTROSE 25,000 UNITS/500 ML BAG IV SCH (12:03)
[2022-07-01] MEDS: PANTOprazole 40 MG in SYRINGE 0 ML IV SCH (12:03)
[2022-07-01] MEDS: IRON SUCROSE 200 MG in 0.9 % SODIUM CHLORIDE 100 ML IV SCH (12:03)
[2022-07-01] MEDS: LACTATED RINGER'S 1,000 ML IV SCH (12:12)
[2022-07-02] MEDS: INSULIN ASPART PER UNIT SC SCH ×5 (01:48→21:53)
[2022-07-02] MEDS: METOPROLOL TARTRATE 1 MG/ML VIAL IV SCH ×2 (01:49→06:17)
[2022-07-02] MEDS: LACTATED RINGER'S 1,000 ML IV SCH (01:51)
[2022-07-02 06:36] LABS: Basophils # (auto) 0.05 K/uL (0-0.2); Basophils % (auto) 0.7 %; Eosinophils % (auto) 2.8 %; Hematocrit (blood only) 36.9 % (40.1-51.0); Hemoglobin 11.8 g/dl (14.0-18.0); Immature Granulocytes # (auto) 0.16 K/uL (0.00-0.02); Immature Granulocytes % (auto) 2.2 %; Lymphocytes # (auto) 0.95 K/uL (1.2-3.4); Lymphocytes % (auto) 13.3 %; Mean Corpuscular Volume 81.5 fL (80.0-100.0); Mean Platelet Volume 8.7 fL (9.4-12.4); Monocytes # (auto) 0.62 K/uL (0.24-0.82); Monocytes % (auto) 8.7 %; Neutrophils # (auto) 5.15 K/uL (1.4-6.5); Neutrophils % (auto) 72.3 %; Platelet Count 269 K/uL (130-400); RDW Coefficient of Variation 15.8 % (11.5-14.5); RDW Standard Deviation 46.9 fL (36.4-46.3); Red Blood Count 4.53 M/uL (4.63-6.08); White Blood Count 7.13 K/ul (4.8-10.8)
[2022-07-02 07:08] LABS: BUN Creatinine Ratio 14.1 (10-20); Calcium 8.3 mg/dl (8.5-10.1); Creatinine Clr Calc Pharmacy 59.2 ml/min; Est GFR (African American) 80.7 ml/min; Est GFR (Non-African American) 69.6 ml/min; Phosphorus 2.9 mg/dl (2.5-4.9); Potassium 3.7 mmol/L (3.5-5.1)
[2022-07-02 07:40] LABS: Partial Thromboplastin Ratio 3.9
[2022-07-02 07:49] LABS: Partial Thromboplastin Time 107.2 Seconds (21.0-31.0)
[2022-07-02] MEDS: ASPIRIN 81 MG CHEW PO SCH (08:32)
--- NOTE | 2022-07-02 08:38 | Surgery Progress Note ---
Date of Service July 02, 2022 Assessment & Plan (1) Small bowel obstruction: Plan: Patient here with recurrent SBO, history of colon surgery 2017 He is clinically feeling better. no pain/nausea/vomiting Having more flatus and now stool in the ostomy Tolerating liquid diet, will advance to low fiber for lunch KUB was previously ordered this AM and read is pending Pending progress possible dispo later today vs jt Admission and Anticipated Discharge Date Admission Date: June 30, 2022 Supervising Physician Co-Signing Physician Notes Patient seen and examined, labs and image reviewed, agree with above. 86-year-old male with small bowel obstruction that appears to be resolving. Gas and stool in his ostomy. Tolerating low fiber diet. On exam afebrile stable vitals, abdomen soft, nontender, nondistended. Colostomy bag with air and stool in it. KUB reviewed, slightly improved stable small bowel dilation. Resolving SBO, patient may be discharged from general surgery standpoint. Subjective Patient is doing well. Tolerating clears and now fulls for breakfast. Denies abdominal pain or nausea. Continues with flatus in bag as well as stool this AM. Physical Exam Physical Exam: awake/alert Gastrointestinal (Abdomen): Percussion/Palpation: abdomen soft; abdomen nontender ostomy with gas and stool in the bag Results & Data ([facility]) Vital Signs (Past 12 Hours) Vital Signs Temp Pulse Pulse Pulse Resp BP Pulse Ox 07/02/22 07:32 36.7 C 71 20 128/85 97 07/02/22 06:17 81 07/02/22 02:17 36.3 C L 16 137/81 98 07/02/22 01:49 83 07/01/22 23:01 36.3 C L 88 18 148/89 H 97 O2 Del Method 07/02/22 07:32 Room Air 07/02/22 06:17 07/02/22 02:17 Room Air 07/02/22 01:49 07/01/22 23:01 Room Air PG Care Time/CCT Total # of Minutes Spent Total Time Spent with Patient: Total time spent is greater than 50% in coordination of care (as documented) at patient's floor/unit and/or counseling patient: Coding Level of Care Code 75312 Subseq Hosp Care Lvl 1 Diagnoses Small bowel obstruction K56.609
[2022-07-02] MEDS: IRON SUCROSE 200 MG in 0.9 % SODIUM CHLORIDE 100 ML IV SCH (08:56)
--- NOTE | 2022-07-02 09:48 | XRay Report ---
KUB CLINICAL HISTORY: Follow-up small bowel obstruction. FINDINGS: An AP, portable, supine abdominal radiograph is compared to study dated 07/01/2022 and shakir elated with abdominal CT dated 06/30/2022. There is evidence of persistent small bowel obstruction. G aseous distention of the small bowel is similar to previous, with loops measuring up to 4 cm. No evid ence of intraperitoneal free air is seen on this supine image. Fecal retention is again seen in the r ight colon. Postoperative changes surgical clips is noted in the pelvis. There are no abnormal abdomi nal calcifications. The skeletal structures are osteopenic but appear intact. There is lumbosacral s pondylosis. A right hip arthroplasty is in place. IMPRESSION: Persistent small bowel obstruction. Electronically signed by: Behzad Bradley M.D. 07/02/2022 9:47 AM
[2022-07-02] MEDS ORDERED: POTASSIUM CHLORIDE CRTAB 20 MEQ TABCR PO STA (10:07)
[2022-07-02] MEDS: HEPARIN SODIUM/DEXTROSE 25,000 UNITS/500 ML BAG IV SCH (10:30)
[2022-07-02] MEDS: dilTIAZem HCL 120 MG CAPCR PO SCH (11:24)
[2022-07-02] MEDS: PANTOprazole 40 MG in SYRINGE 0 ML IV SCH (11:24)
[2022-07-02] MEDS: METOPROLOL SUCC 50MG EXT REL TAB PO SCH (11:25)
[2022-07-02] MEDS ORDERED: RIVAROXABAN 20 MG TAB PO SCH (16:30)
--- NOTE | 2022-07-02 16:39 | Hospitalist Progress Note ---
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 Lactate elevated at 3.8 but then improved to normal with IV fluids. No evidence of sepsis otherwise and blood pressures/heart rate are normal. Leukocytosis then resolved as well KUB 07/01 with persistent SBO but clinically improved and diet advanced to clears KUB 07/02 again persistent SBO but is passing stool, gas, clinically resolved-- > diet advanced to low fiber -Surgery consulted given history of need for lysis of adhesions and recurrent bowel obstructions in the past-management appreciated -dc maintenance IV fluids as is gifty diet -restart home po meds -advised low fiber diet on discharge-consulted [employer] for counseling who saw him on 07/02 -if continues to pass stool and continues to improve with starting low fiber t, will plan to discharge tomorrow on low fiber diet (2) Atrial fibrillation: Plan: Permanent atrial fibrillation Now taking po--> restart home p.o. diltiazem and metoprolol Rates go to 170s with any exertion but quickly go back to normal with rest. Sometimes rates in to the 50s with 2 second pauses--> this should improve with restarting po meds -Monitor on telemetry -dc heparin drip now that is tolerating po and restart home Xarelto (3) Anemia: Plan: Hemoglobin mildly low at 11.8, microcytic Also known to have B12 deficiency but levels checked few months ago were normal Fe deficiency--> transferrin sat low at 11% and ferritin very low at 12 EGD 06/2021 with gastritis; no colonoscopy in many years No obvious bleeding he has ever seen -would not give Fe tabs due to binding effect -give IV Venofer 200mg daily x 3 doses-last dose scheduled for 07/03 AM -f/u outpt but could just be nutritional deficiency rather than occult bleeding -Follow CBC (4) CVA (cerebral vascular accident): Plan: With a 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: Plan: Noted, for history of colon cancer (8) Diabetes mellitus, type 2: Plan: Hyperglycemic in the ER with blood sugar in the 300s, was given 6 units of regular insulin IV Now with controlled glucose Accu-Cheks every 6 hours while NPO NovoLog supplemental insulin ordered Recent hemoglobin A1c very well controlled at 7.2% Holding home Jardiance, glipizide, metformin but can be restarted on discharge (9) GERD (gastroesophageal reflux disease): Plan: dc IV PPI and restart home po Protonix (10) Gout: Plan: No acute issues (11) Hyperlipidemia: Plan: restart home statin (12) Hypertension: Plan: Blood pressures controlled restarting home metoprolol, diltiazem,and lisinopril (13) Hypothyroidism: Plan: restart home po levothyroxine Recent TSH was normal 1 week ago (14) Peripheral neuropathy: Plan: No acute issues and no medications for this Plan DVT prophylaxis-SCDs, heparin drip being converted to Xarelto Disposition-continued stay on PCU but if continues to move bowels and have clinical resolution of SBO, can discharge to home tomorrow DNR/DNI as discussed with patient with his son at the bedside. His and son are both his decision makers if he is unable to make decisions. Updated his son Noam at bedside on 07/02 Admission and Anticipated Discharge Date Admission Date: June 30, 2022 Subjective Pt feeling much better, had a large amount of solid stool come out into his colostomy bag followed then by softer, liquid stool today. Denies any abdominal pain, no nausea. Surgery advanced his diet to low fiber today and he ate that for lunch so far without problems. Is passing a large amount of gas since lunch into his bag. Denies CP, SOB. Tele with Afib, rates 80-90s with rates into the 170s at times. Review of Systems Review of Systems: All systems reviewed & are unremarkable except as noted in HPI & below Physical Exam Constitutional: WD/WN, vitals as above Eyes: + anicteric sclerae Neck: trachea midline, no thyromegaly Respiratory: normal respiratory effort, lungs clear to auscultation Cardiovascular: Rate/Rhythm: regular rate and + irregularly irregular Heart Sounds: no murmur Extremities: no calf tenderness and no edema Chest (Breasts): Chest: normal inspection of chest Gastrointestinal (Abdomen): Inspection/Auscultation: normal bowel sounds; + abdomen abnormal to inspection (Colostomy bag with small amount of gas, small piece of stool) and abdomen not distended Percussion/Palpation: + abdomen tender (mild in LLQ without guarding or rebound) and abdomen soft; no guarding Musculoskeletal: Extremities: extremities normal to inspection; no cyanosis and no clubbing Skin: no rashes, warm and dry Neurologic: moves all extremities and awake; no focal motor deficits Speech / Cognition: + expressive aphasia (Occasional) Psychiatric: A+Ox3, euthymic affect Lymphatic: no lymphedema Results & Data Results & Data ([facility]) Vital Signs (Past 12 Hours) Vital Signs Temp Pulse Pulse Resp BP Pulse Ox O2 Del Method 07/02/22 11:41 36.5 C 81 20 128/80 97 Room Air 07/02/22 07:32 36.7 C 71 20 128/85 97 Room Air 07/02/22 06:17 81 Laboratory Results 07/02/22 07/02/22 07/02/22 Range/Units 16:26 11:29 06:16 WBC (4.8-10.8) K/ul RBC (4.63-6.08) M/uL Hgb (14.0-18.0) g/dl Hct (40.1-51.0) % MCV (80.0-100.0) fL MCH (25.0-34.0) pg MCHC (32.0-36.0) g/dL RDW Std Deviation (36.4-46.3) fL RDW Coeff of [place] (11.5-14.5) % Plt Count (130-400) K/uL MPV (9.4-12.4) fL Immature Gran % (Auto) % Neut % (Auto) % Lymph % (Auto) % [place] % (Auto) % Eos % (Auto) % Baso % (Auto) % Neut # (Auto) (1.4-6.5) K/uL Lymph # (Auto) (1.2-3.4) K/uL [place] # (Auto) (0.24-0.82) K/uL Eos # (Auto) (0-0.50) K/uL Baso # (Auto) (0-0.2) K/uL Immature Gran # (Auto) (0.00-0.02) K/uL APTT 107.2 H* (21.0-31.0) Seconds PTT Ratio 3.9 Sodium (136-145) mmol/L Potassium (3.5-5.1) mmol/L Chloride (98-107) mmol/L Carbon Dioxide (21-32) mmol/L Anion Gap (3-11) BUN (6-23) mg/dl Creatinine (0.6-1.4) mg/dl Est Cr Clr Drug Dosing ml/min Est GFR ( Amer) ml/min Est GFR (Non-Af Amer) ml/min BUN/Creatinine Ratio (10-20) Glucose (70-99(Fasting)) mg/dl POC Glucose 149 H 220 H (70-99) mg/dl Calcium (8.5-10.1) mg/dl Phosphorus (2.5-4.9) mg/dl Magnesium (1.7-2.4) mg/dl 07/02/22 07/02/22 07/02/22 Range/Units 06:16 06:16 05:32 WBC 7.13 (4.8-10.8) K/ul RBC 4.53 L (4.63-6.08) M/uL Hgb 11.8 L (14.0-18.0) g/dl Hct 36.9 L (40.1-51.0) % MCV 81.5 (80.0-100.0) fL MCH 26.0 (25.0-34.0) pg MCHC 32.0 (32.0-36.0) g/dL RDW Std Deviation 46.9 H (36.4-46.3) fL RDW Coeff of [place] 15.8 H (11.5-14.5) % Plt Count 269 (130-400) K/uL MPV 8.7 L (9.4-12.4) fL Immature Gran % (Auto) 2.2 % Neut % (Auto) 72.3 % Lymph % (Auto) 13.3 % [place] % (Auto) 8.7 % Eos % (Auto) 2.8 % Baso % (Auto) 0.7 % Neut # (Auto) 5.15 (1.4-6.5) K/uL Lymph # (Auto) 0.95 L (1.2-3.4) K/uL [place] # (Auto) 0.62 (0.24-0.82) K/uL Eos # (Auto) 0.20 (0-0.50) K/uL Baso # (Auto) 0.05 (0-0.2) K/uL Immature Gran # (Auto) 0.16 H (0.00-0.02) K/uL APTT (21.0-31.0) Seconds PTT Ratio Sodium 138 (136-145) mmol/L Potassium 3.7 (3.5-5.1) mmol/L Chloride 107 (98-107) mmol/L Carbon Dioxide 24 (21-32) mmol/L Anion Gap 7 (3-11) BUN 14 (6-23) mg/dl Creatinine 0.99 (0.6-1.4) mg/dl Est Cr Clr Drug Dosing 59.2 ml/min Est GFR ( Amer) 80.7 ml/min Est GFR (Non-Af Amer) 69.6 ml/min BUN/Creatinine Ratio 14.1 (10-20) Glucose 150 H (70-99(Fasting)) mg/dl POC Glucose 134 H (70-99) mg/dl Calcium 8.3 L (8.5-10.1) mg/dl Phosphorus 2.9 (2.5-4.9) mg/dl Magnesium 2.0 (1.7-2.4) mg/dl 07/02/22 Range/Units 01:44 WBC (4.8-10.8) K/ul RBC (4.63-6.08) M/uL Hgb (14.0-18.0) g/dl Hct (40.1-51.0) % MCV (80.0-100.0) fL MCH (25.0-34.0) pg MCHC (32.0-36.0) g/dL RDW Std Deviation (36.4-46.3) fL RDW Coeff of [place] (11.5-14.5) % Plt Count (130-400) K/uL MPV (9.4-12.4) fL Immature Gran % (Auto) % Neut % (Auto) % Lymph % (Auto) % [place] % (Auto) % Eos % (Auto) % Baso % (Auto) % Neut # (Auto) (1.4-6.5) K/uL Lymph # (Auto) (1.2-3.4) K/uL [place] # (Auto) (0.24-0.82) K/uL Eos # (Auto) (0-0.50) K/uL Baso # (Auto) (0-0.2) K/uL Immature Gran # (Auto) (0.00-0.02) K/uL APTT (21.0-31.0) Seconds PTT Ratio Sodium (136-145) mmol/L Potassium (3.5-5.1) mmol/L Chloride (98-107) mmol/L Carbon Dioxide (21-32) mmol/L Anion Gap (3-11) BUN (6-23) mg/dl Creatinine (0.6-1.4) mg/dl Est Cr Clr Drug Dosing ml/min Est GFR ( Amer) ml/min Est GFR (Non-Af Amer) ml/min BUN/Creatinine Ratio (10-20) Glucose (70-99(Fasting)) mg/dl POC Glucose 134 H (70-99) mg/dl Calcium (8.5-10.1) mg/dl Phosphorus (2.5-4.9) mg/dl Magnesium (1.7-2.4) mg/dl PG Care Time/CCT Total # of Minutes Spent Total Time Spent with Patient: Total time spent is greater than 50% in coordination of care (as documented) at patient's floor/unit and/or counseling patient: Coding Level of Care Code 07424 Subseq Hosp Care Lvl 3 Diagnoses Small bowel obstruction K56.609 Atrial fibrillation I48.91 Anemia D64.9 CVA (cerebral vascular accident) I63.9 B12 deficiency E53.8 CKD (chronic kidney disease) N18.[address] Z93.3 Diabetes mellitus, type 2 E11.9 GERD (gastroesophageal reflux disease) K21.9 Gout M10.9 Hyperlipidemia E78.5 Hypertension I10 Hypothyroidism E03.9 Peripheral neuropathy G62.9
[2022-07-02] MEDS: SIMVASTATIN 40 MG TAB PO SCH (19:45)
[2022-07-03] MEDS: LEVOTHYROXINE SODIUM 50 MCG TABLET PO SCH (05:39)
[2022-07-03 05:57] LABS: Basophils # (auto) 0.04 K/uL (0-0.2); Basophils % (auto) 0.5 %; Eosinophils # (auto) 0.16 K/uL (0-0.50); Eosinophils % (auto) 2.1 %; Hematocrit (blood only) 36.2 % (40.1-51.0); Hemoglobin 11.6 g/dl (14.0-18.0); Immature Granulocytes # (auto) 0.21 K/uL (0.00-0.02); Immature Granulocytes % (auto) 2.8 %; Lymphocytes # (auto) 1.09 K/uL (1.2-3.4); Lymphocytes % (auto) 14.6 %; Mean Corpuscular Hemoglobin 25.8 pg (25.0-34.0); Mean Corpuscular Volume 80.6 fL (80.0-100.0); Mean Platelet Volume 8.7 fL (9.4-12.4); Monocytes # (auto) 0.59 K/uL (0.24-0.82); Monocytes % (auto) 7.9 %; Neutrophils # (auto) 5.36 K/uL (1.4-6.5); Neutrophils % (auto) 72.1 %; Nucleated RBC # (auto) 0.03 K/uL (0-0); Nucleated RBC % (auto) 0.4 %; Platelet Count 267 K/uL (130-400); RDW Coefficient of Variation 15.7 % (11.5-14.5); RDW Standard Deviation 45.5 fL (36.4-46.3); Red Blood Count 4.49 M/uL (4.63-6.08); White Blood Count 7.45 K/ul (4.8-10.8)
[2022-07-03 06:16] LABS: BUN Creatinine Ratio 12.4 (10-20); Calcium 8.6 mg/dl (8.5-10.1); Creatinine Clr Calc Pharmacy 48.4 ml/min; Est GFR (African American) 63.3 ml/min; Est GFR (Non-African American) 54.6 ml/min; Potassium 4.2 mmol/L (3.5-5.1)
[2022-07-03] MEDS: PANTOprazole 40 MG TAB PO SCH (08:11)
[2022-07-03] MEDS: dilTIAZem HCL 120 MG CAPCR PO SCH (08:11)
[2022-07-03] MEDS: lisinopril 2.5 MG TAB PO SCH (08:11)
[2022-07-03] MEDS: METOPROLOL SUCC 50MG EXT REL TAB PO SCH (08:11)
[2022-07-03] MEDS: ASPIRIN 81 MG CHEW PO SCH (08:11)
[2022-07-03] MEDS: IRON SUCROSE 200 MG in 0.9 % SODIUM CHLORIDE 100 ML IV SCH (08:15)
[2022-07-03] MEDS: INSULIN ASPART PER UNIT SC SCH ×3 (08:18→17:58)
[2022-07-03] MEDS ORDERED: ACETAMINOPHEN 325 MG TAB PO PRN (08:25)
--- NOTE | 2022-07-03 10:03 | Electrocardiogram Report ---
Test Reason : Blood Pressure : / mmHG Vent. Rate : 063 BPM Atrial Rate : 326 BPM P-R Int : 000 ms QRS Dur : 156 ms QT Int : 432 ms P-R-T Axes : 000 195 -05 degrees QTc Int : 442 ms Atrial fibrillation Right bundle branch block Inferior infarct (cited on or before 28-MAY-2022) Abnormal ECG When compared with ECG of 28-MAY-2022 08:41, Vent. rate has decreased BY 46 BPM Questionable change in QRS axis QT has shortened Confirmed by Gregg Ruiz ([id number] on 07/03/2022 10:02:41 AM Referred By: REFERRED SELF Confirmed By:Gregg Ruiz
[2022-07-03] MEDS ORDERED: RIVAROXABAN 15 MG TAB PO SCH (16:30)
[2022-07-03] MEDS ORDERED: glipiZIDE 5 MG TAB PO ONE (19:05)
--- NOTE | 2022-07-03 19:07 | Hospitalist Progress Note ---
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 Lactate elevated at 3.8 but then improved to normal with IV fluids. No evidence of sepsis otherwise and blood pressures/heart rate are normal. Leukocytosis then resolved as well KUB 07/01 with persistent SBO but clinically improved and diet advanced to clears KUB 07/02 again persistent SBO but is passing stool, gas, clinically resolved-- > diet advanced to low fiber -Surgery consulted -med management. -restartedhome po meds -advised low fiber diet on discharge-consulted Director Of Social Work for counseling who saw him on 07/02 will plan to discharge tomorrow on low fiber diet Patient was seen late in the evening today ,so could not be discharged. (2) Atrial fibrillation: Plan: Permanent atrial fibrillation Now taking po--> restart home p.o. diltiazem and metoprolol Rates go to 170s with any exertion but quickly go back to normal with rest. Sometimes rates in to the 50s with 2 second pauses--> this should improve with restarting po meds A. fib stableEKG this morning reveals atrial fibrillation with right bundle branch block and ventricular rate rate in the 60s -restared home Xarelto (3) Anemia: Plan: Hemoglobin mildly low at 11.8, microcytic Also known to have B12 deficiency but levels checked few months ago were normal Fe deficiency--> transferrin sat low at 11% and ferritin very low at 12 EGD 06/2021 with gastritis; no colonoscopy in many years No obvious bleeding he has ever seen -would not give Fe tabs due to binding effect -given IV Venofer 200mg daily x 3 doses-last dose scheduled for 07/03 AM -f/u outpt but could just be nutritional deficiency rather than occult bleeding -Follow CBC as outpatient. (4) CVA (cerebral vascular accident): Plan: Discharge home in the morning. I have called son and informed patient. (5) B12 deficiency: Plan: As above, recent levels normal Replacement can be restarted on discharge (6) CKD (chronic kidney disease): Plan: Renal function slightly worse than baseline likely from mild dehydration with BUN also being elevated. 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 Restart in am home meds empagliflozin 5 mg daily, glipizide 2.5 mg daily and metformin 500 mg daily and stop insulin. (9) GERD (gastroesophageal reflux disease): Plan: home po Protonix (10) Gout: Plan: No acute issues (11) Hyperlipidemia: Plan: restarted home statin (12) Hypertension: Plan: Blood pressures controlled on home metoprolol, diltiazem,and lisinopril (13) Hypothyroidism: Plan: restart home po levothyroxine Recent TSH was normal 1 week ago (14) Peripheral neuropathy: Plan: No acute issues and no medications for this Plan DVT prophylaxis-SCDs, heparin drip being converted to Xarelto Disposition-continued stay on PCU but if continues to move bowels and have clinical resolution of SBO, can discharge to home tomorrow DNR/DNI as discussed with patient with his son at the bedside. His and son are both his decision makers if he is unable to make decisions. Updated his son Noam at bedside on 07/02 Admission and Anticipated Discharge Date Admission Date: June 30, 2022 Subjective Seen at 6:20 PM. Patient has done very well. Ambulating in the halls on his own. He is eating a regular diet. He is able to talk with occasional word finding difficulties. He is reading a book and doing well exercises in a workbook for stroke survivors. Denies abdominal pain/nausea/vomiting/depressed mood/confusion. No difficulty swallowing or focal neurological deficit. He states his colostomy output goes up and down and lately has been more than usual. Physical Exam Physical Exam: Pleasant tall male, speech clear with occasional word finding difficulties, provides me a very detailed history of his career when asked. 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 Now lives with his at home. Head and neck moist tongue, anicteric sclerae, no mouth deviation Chest clear to auscultation CVS S1-S2 irregularly irregular telemetry shows atrial fibrillation at 65 Abdomen, left-sided colostomy, nontender abdomen Extremities no edema [employer]IST[employer] normal gait, 5 of 5 all 4 extremities Psych normal affect, intact insight and judgment Results & Data Results & Data ([facility]) Vital Signs (Past 12 Hours) Vital Signs Temp Pulse Resp BP Pulse Ox O2 Del Method 07/03/22 11:32 36.7 C 71 16 124/79 99 Room Air 07/03/22 08:00 36.6 C 66 18 115/69 95 Room Air Laboratory Results No labs today Medications Administered Home Medications Medication Instructions Recorded Confirmed Last Taken mecobalamin (vitamin B12) 1,000 1,000 mcg PO QPM 07/23/20 06/26/22 05/27/22 mcg chewable tablet cholecalciferol (vitamin D3) 50 50 mcg PO QAM 12/10/20 06/26/22 05/27/22 mcg (2,000 unit) capsule rddcocbj-gkk-xqtzt acid 300 1 tab PO QAM 12/10/20 06/26/22 05/27/22 mcg-lycopene 600 mcg-lutein 300 mcg tablet (Centrum Silver Men) pantoprazole 40 mg tablet,delayed 40 mg PO DAILY #90 tabs 10/22/21 06/26/22 05/27/22 release rivaroxaban 20 mg tablet (Xarelto) 20 mg PO QAM #90 tabs 12/01/21 06/26/22 05/27/22 glipizide 2.5 mg tablet, extended 2.5 mg PO QAM #90 tabs 01/21/22 06/26/22 05/27/22 release 24 hr metformin 500 mg tablet,extended 500 mg PO QPM #90 tabs 03/23/22 06/26/22 05/27/22 release 24 hr diltiazem HCl 120 mg 120 mg PO DAILY #90 caps 04/02/22 06/26/22 05/27/22 capsule,extended release 24 hr (Cartia XT) lisinopril 2.5 mg tablet 2.5 mg PO DAILY #90 tabs 04/22/22 06/26/22 05/27/22 empagliflozin 10 mg tablet 10 mg PO DAILY #30 tabs 04/28/22 06/26/22 05/27/22 (Jardiance) aluminum hydrox-magnesium carb 95 15 ml PO DAILY PRN 05/27/22 06/26/22 Unknown mg-358 mg/15 mL oral suspension HEARTBURN/INDIGESTION (Gaviscon) wheat dextrin 3 gram/3.5 gram oral 1.5 g PO DAILY 05/27/22 06/26/22 05/27/22 powder packet (Benefiber Clear Sugar Free(dextrin)) aspirin 81 mg tablet,delayed 81 mg PO DAILY #30 tabs 05/29/22 06/26/22 Unknown release (Adult Low Dose Aspirin) levothyroxine 50 mcg tablet 50 mcg PO QAM #90 tabs 06/19/22 06/26/22 Unknown glipizide 5 mg tablet, extended 5 mg PO QAM #90 tabs 06/26/22 06/26/22 Unknown release 24 hr levofloxacin 750 mg tablet 750 mg PO Q48H #4 tabs 06/26/22 Unknown methylprednisolone 4 mg tablets in 4 mg PO .as directed #21 ea 06/26/22 Unknown a dose pack metoprolol succinate 100 mg 100 mg PO QAM #90 tabs 06/26/22 06/26/22 Unknown tablet,extended release 24 hr simvastatin 40 mg tablet 40 mg PO PM #90 tabs 06/26/22 06/26/22 Unknown Active Medications Generic Name Dose Route Start Last Admin Trade Name Freq PRN Reason Stop Dose Admin Acetaminophen 650 mg 07/03/22 08:25 07/03/22 09:22 Acetaminophen 325 Mg Tab PO 08/02/22 08:24 650 mg Q4H PRN Administration Pain Aspirin 81 mg 06/30/22 16:30 07/03/22 08:11 Aspirin 81 Mg Chew PO 07/30/22 16:29 81 mg DAILY RACHEL Administration Diltiazem HCl 120 mg 07/02/22 10:15 07/03/22 08:11 Diltiazem Hcl 120 Mg Capcr PO 08/01/22 10:14 120 mg QAM RACHEL Administration Iron Sucrose 200 mg/ Sodium 110 mls @ 220 mls/hr 07/01/22 12:00 07/03/22 08:46 Chloride IV 07/05/22 09:29 Infused DAILY RACHEL Infusion Insulin Aspart 0 units 07/02/22 11:30 07/03/22 17:58 Insulin Aspart Per Unit SC 08/01/22 11:29 1 units ACHS RACHEL Administration Levothyroxine Sodium 50 mcg 07/03/22 06:30 07/03/22 05:39 Levothyroxine Sodium 50 Mcg Tablet PO 08/02/22 06:29 50 mcg DAILYBB RACHEL Administration Lisinopril 2.5 mg 07/03/22 09:00 07/03/22 08:11 Lisinopril 2.5 Mg Tab PO 08/02/22 08:59 2.5 mg QAM RACHEL Administration Metoprolol Succinate 100 mg 07/02/22 12:00 07/03/22 08:11 Metoprolol Succ 50mg Ext Rel Tab PO 08/01/22 11:59 100 mg QAM RACHEL Administration Pantoprazole Sodium 40 mg 07/03/22 09:00 07/03/22 08:11 Pantoprazole 40 Mg Tab PO 08/02/22 08:59 40 mg QAM RACHEL Administration Rivaroxaban 15 mg 07/03/22 16:30 07/03/22 17:57 Rivaroxaban 15 Mg Tab PO 08/02/22 16:29 15 mg QDD RACHEL Administration Simvastatin 40 mg 07/02/22 21:00 07/02/22 19:45 Simvastatin 40 Mg Tab PO 08/01/22 20:59 40 mg PM RACHEL Administration PG Care Time/CCT Total # of Minutes Spent Total Time Spent with Patient: Total time spent is greater than 50% in coordination of care (as documented) at patient's floor/unit and/or counseling patient: Coding Level of Care Code 55611 Subseq Hosp Care Lvl 2 Diagnoses Small bowel obstruction K56.609 Atrial fibrillation I48.91 Anemia D64.9 CVA (cerebral vascular accident) I63.9 B12 deficiency E53.8 CKD (chronic kidney disease) N18.[address] Z93.3 Diabetes mellitus, type 2 E11.9 GERD (gastroesophageal reflux disease) K21.9 Gout M10.9 Hyperlipidemia E78.5 Hypertension I10 Hypothyroidism E03.9 Peripheral neuropathy G62.9
[2022-07-03] MEDS ORDERED: Nursing to Pharmacy Communication SCH (20:45)
[2022-07-03] MEDS: SIMVASTATIN 40 MG TAB PO SCH (21:16)
[2022-07-04] MEDS: LEVOTHYROXINE SODIUM 50 MCG TABLET PO SCH (06:16)
[2022-07-04] MEDS: lisinopril 2.5 MG TAB PO SCH (08:08)
[2022-07-04] MEDS: PANTOprazole 40 MG TAB PO SCH (08:08)
[2022-07-04] MEDS: METOPROLOL SUCC 50MG EXT REL TAB PO SCH (08:08)
[2022-07-04] MEDS: ASPIRIN 81 MG CHEW PO SCH (08:08)
[2022-07-04] MEDS ORDERED: RIVAROXABAN 15 MG TAB PO SCH (09:00)
[2022-07-04] MEDS ORDERED: glipiZIDE 5 MG TAB PO ONE (09:00)
[2022-07-04] MEDS: IRON SUCROSE 200 MG in 0.9 % SODIUM CHLORIDE 100 ML IV SCH (09:22)
[2022-07-04 09:28] VITALS: BP 111/50; PULSE 70; TEMP 97.5; O2SAT 99
--- NOTE | 2022-07-04 10:10 | Discharge Summary ---
Date of Service July 04, 2022 Admission HPI Per Admitting Provider This patient is an 86-year-old male with a history of permanent atrial fibrillation on Xarelto, recent ischemic CVA, HTN, DM2, hypothyroidism, GERD, B12 deficiency, hyperlipidemia, and gout who presents to the ER with acute onset of lower abdominal pain and nausea/vomiting. This felt very similar to his previous episodes of bowel obstructions. He has a colostomy that has been in place for 40 years and has required lysis of adhesions in the past for bowel distractions. He reports he was started on levofloxacin and steroids for possible pneumonia or bronchitis about 4 days ago by his PCP and began having some diarrhea and loose stools. He denies any recent fevers or chills. He has a chronic cough which has been no worse than usual. Otherwise was in his normal state of health. In the ER, a CT of the abdomen/pelvis was performed which did indeed show a small obstruction with transition point in the RLQ. He was given Reglan and Benadryl for nausea, IV Tylenol for pain and insulin as well as IV fluids. He was hyperglycemic and had an elevated WBC count of 24,000, as well as an elevated lactate of 3.8 which improved with IV fluid hydration. His vital signs were otherwise normal. Hospitalist service was consulted for admission to the hospital for small bowel obstruction. Principal Diagnosis Recurrent small bowel obstruction Discharge Exam General-alert and oriented x3, no fevers, no chills HEENT-head atraumatic and normocephalic, pupils equal and reactive to light, extraocular muscles intact Neck-no lymphadenopathy or thyromegaly, trachea midline Chest-clear to auscultation percussion. No rales wheezing or rhonchi Cardiac-regular rate and rhythm, normal S1 and S2, no murmurs Abdomen-normal bowel sounds, nontender, no hepatosplenomegaly. Left lower quadrant colostomy bag has air and stool inside Extremities-no cyanosis, clubbing, or edema Neuro-cranial nerves II through XII intact, motor and sensory function within normal limits, strength symmetrical , no focal deficits Psych-normal affect, normal mood Discharge Data Allergies Allergy/AdvReac Type Severity Reaction Status Date / Time tetanus toxoid, adsorbed Allergy Intermediate BLISTERS Verified 06/26/22 09:27 AND EYES SWELLING hydromorphone AdvReac Intermediate HALLUCINATI Verified 06/26/22 09:27 ONS lorazepam AdvReac Intermediate HALLUCINATI Verified 06/26/22 09:27 ONS Consultations 06/30/22 07:27 ED Decision to Admit Stat 06/30/22 07:44 Consult General Surgery Routine Ordered Studies 06/30/22 04:22 CT abd pelvis IV con only Stat Hospital Course (1) Small bowel obstruction: X-rays are probably always abnormal. However he is passing stool and air into the colostomy bag and is currently asymptomatic. Home today, July 04 (2) Atrial fibrillation: Permanent atrial fibrillation. Rate controlled with current medications. He is also on Xarelto (3) Anemia: Stable. He has iron deficiency and is receiving parenteral iron replacement. No active GI bleeding seen (4) CVA (cerebral vascular accident): With associated dysarthria. Stable. (5) B12 deficiency: As above, recent levels normal. Continue replacement therapy at discharge (6) CKD (chronic kidney disease): Stable. Monitor intake and output. Serial labs (7) Colostomy in place: Left lower quadrant area. Functioning colostomy at this time with air and stool present in the bag (8) Diabetes mellitus, type 2: ADA diet. Sliding scale coverage while hospitalized. Continue current medications. Controlled (9) GERD (gastroesophageal reflux disease): Controlled with po Protonix (10) Gout: No acute issues (11) Hyperlipidemia: statin therapy. Low-cholesterol diet (12) Hypertension: Blood pressures controlled on home metoprolol, diltiazem,and lisinopril (13) Hypothyroidism: Continue oral replacement with levothyroxine. Recent TSH was normal 1 week ago (14) Peripheral neuropathy: No acute issues and he takes no medications for this Plan DVT prophylaxis- Xarelto Disposition-discharge to home today, July 04 Total Time Total Time Spent Total Time Spent (In Minutes): 35 minutes Discharge Plan Discharge Items Patient Disposition: Home - Self-Care Reason For Visit: SBO ( recurrent ) Discharge Diagnosis: Recurrent small bowel obstruction Condition on Discharge: Good Activity: Resume your previous activity Non-emergency contact: Primary Care Provider Call non-emergency contact if: your symptoms worsen Follow-up/Referrals: Romulo Barker, [Primary Care Provider] - Diet: Carb Consistent or DM2 and Heart Healthy Addtl Attending Provider Instructions: All medications remain the same Pending Studies at Discharge: No Stand-Alone Forms: [facility], Smoking Cessation Medications and DC Order Prescriptions: New metoprolol succinate 50 mg Tablet Extended Release 24 Hr 100 mg PO QAM Qty: 30 0RF simvastatin 40 mg Tablet 40 mg PO PM Qty: 30 0RF diltiazem HCl [Cardizem CD] 120 mg Capsule,Extended Release 24hr 120 mg PO QPM Qty: 30 0RF lisinopril 2.5 mg Tablet 2.5 mg PO QAM Qty: 30 0RF aspirin [Children's Aspirin] 81 mg Tablet,Chewable 81 mg PO DAILY Qty: 30 0RF Continued Xarelto 20 mg tablet 20 mg PO QAM Qty: 90 3RF glipizide 2.5 mg tablet extended release 24 hr 2.5 mg PO QAM Qty: 90 3RF metformin 500 mg tablet extended release 24 hr 500 mg PO QPM Qty: 90 3RF diltiazem HCl [Cartia XT] 120 mg capsule,extended release 24hr 120 mg PO DAILY Qty: 90 3RF lisinopril 2.5 mg tablet 2.5 mg PO DAILY Qty: 90 3RF Hold Instructions: low nml BP Jardiance 10 mg tablet 10 mg PO DAILY Qty: 30 2RF levothyroxine 50 mcg tablet 50 mcg PO QAM Qty: 90 1RF methylprednisolone 4 mg tablets,dose pack 4 mg PO .as directed Qty: 21 0RF levofloxacin 750 mg tablet 750 mg PO Q48H Qty: 4 0RF pantoprazole 40 mg tablet,delayed release (DR/EC) 40 mg PO DAILY Qty: 90 3RF Benefiber Clear SF (dextrin) 3 gram/3.5 gram powder in packet 1.5 g PO DAILY Rx Instructions: mix into at least 4 oz water or juice before administering mecobalamin (vitamin B12) 1,000 mcg tablet,chewable 1,000 mcg PO QPM Centrum Silver Men 300-600-300 mcg tablet 1 tab PO QAM cholecalciferol (vitamin D3) 50 mcg (2,000 unit) capsule 50 mcg PO QAM metoprolol succinate 100 mg tablet extended release 24 hr 100 mg PO QAM Qty: 90 3RF glipizide 5 mg tablet extended release 24hr 5 mg PO QAM Qty: 90 3RF simvastatin 40 mg tablet 40 mg PO PM Qty: 90 3RF Gaviscon 95-358 mg/15 mL suspension 15 ml PO DAILY PRN (Reason: HEARTBURN/INDIGESTION) aspirin [Adult Low Dose Aspirin] 81 mg tablet,delayed release (DR/EC) 81 mg PO DAILY Qty: 30 0RF Discharge Orders: Discharge Order (Routine); Ordered 07/04/22 Ordered By: Phoenix Loomis Admission Data Admit Date/Time: 06/30/22 08:57 Attending Provider: Phoenix Loomis Admit Provider: Analilia Martinez Primary Care Provider: Romulo Barker Other Providers: Analilia Martinez ; Noam Sandy Coding Level of Care Code D/C DAY MANAGEMENT >30 MINS Diagnoses Small bowel obstruction K56.609 Atrial fibrillation I48.91 Anemia D64.9 CVA (cerebral vascular accident) I63.9 B12 deficiency E53.8 CKD (chronic kidney disease) N18.[address] Z93.3 Diabetes mellitus, type 2 E11.9 GERD (gastroesophageal reflux disease) K21.9 Gout M10.9 Hyperlipidemia E78.5 Hypertension I10 Hypothyroidism E03.9 Peripheral neuropathy G62.9
[2022-07-04] MEDS ORDERED: metFORMIN HCL 500 MG TAB PO SCH (15:30)
[2022-07-04] MEDS ORDERED: dilTIAZem HCL 120 MG CAPCR PO SCH (21:00)
== END 2022-07-04 12:23 | disposition home or self-care (01) | DRG 389 ==
LOC: ED 03:36 → SUATTDRO 08:57 → 4W 08:57

== ENCOUNTER 2023-08-16 00:19 | Inpatient (IN) ==
[2023-08-16] MEDS ORDERED: SODIUM CHLORIDE 0.9% 500 ML IV STA (00:27)
[2023-08-16] MEDS ORDERED: ONDANSETRON INJ 2 MG/ML 2 ML VIAL IV STA (00:27)
--- NOTE | 2023-08-16 00:38 | Emergency Department Note ---
History of Present Illness General Chief complaint: Abdominal Pain Time Seen by Provider: 08/16/23 00:26 History of Present Illness Maximum Pain Intensity: 7 This 87-year-old male with history of recurrent bowel obstruction presents to the ER complaining of severe abdominal pain with no ostomy output for the past few hours w/ concerns for another bowel obstruction. Pain started a few hours ago. Patient has chest pain, dyspnea, fever, chills, flank pain, urinary symptoms or any other medical complaints. Home Medications Medication Instructions Recorded Confirmed Type mecobalamin (vitamin B12) 1,000 1,000 mcg PO QPM 07/23/20 08/16/23 History mcg chewable tablet cholecalciferol (vitamin D3) 50 50 mcg PO QAM 12/10/20 08/16/23 History mcg (2,000 unit) capsule [id number] 300 mcg-K 60 1 tab PO QAM 12/10/20 08/16/23 History mcg-lycop 600 mcg-lutein 300 mcg tablet (Centrum Silver Men) aspirin 81 mg tablet,delayed 81 mg PO DAILY #30 tabs 05/29/22 08/16/23 Rx release (Adult Low Dose Aspirin) rivaroxaban 20 mg tablet (Xarelto) 20 mg PO QAM #90 tabs 11/30/22 08/16/23 Rx metformin 500 mg tablet,extended 500 mg PO QPM #90 tabs 02/12/23 08/16/23 Rx release 24 hr metoprolol succinate 50 mg 75 mg (1.5 x 50 mg) PO DAILY #120 02/17/23 08/16/23 Rx tablet,extended release 24 hr tabs simvastatin 40 mg tablet 40 mg PO PM #90 tabs 03/25/23 08/16/23 Rx diltiazem HCl 120 mg 120 mg PO DAILY #90 caps 04/05/23 08/16/23 Rx capsule,extended release 24 hr (Cartia XT) levothyroxine 50 mcg tablet 50 mcg PO . ABOUT LUNCHTIME #90 08/05/23 08/16/23 Rx tabs empagliflozin 25 mg tablet 25 mg PO DAILY #90 tabs 08/13/23 08/16/23 Rx glipizide 5 mg tablet, extended 5 mg PO QAM 08/16/23 08/16/23 History release 24 hr pantoprazole 40 mg tablet,delayed 40 mg PO BID 08/16/23 08/16/23 History release Allergies Allergy/AdvReac Type Severity Reaction Status Date / Time tetanus toxoid, adsorbed Allergy Intermediate BLISTERS Verified 08/11/23 10:04 AND EYES SWELLING hydromorphone AdvReac Intermediate HALLUCINATI Verified 08/11/23 10:04 ONS lorazepam AdvReac Intermediate HALLUCINATI Verified 08/11/23 10:04 ONS Past Med/Surg History Medical History Hypothyroidism CVA (cerebral vascular accident) CKD (chronic kidney disease) Expressive aphasia Hypertrophy of both inferior nasal turbinates Chronic rhinitis GERD (gastroesophageal reflux disease) Anemia Rotator cuff tear Per MRI 02/2020. Followed by orthopedics. Declined operative management. 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 Diabetes mellitus, type 2 On anticoagulant therapy xarelto daily History of colon cancer 1978 Surgical History H/O hernia repair Hx of abdominal surgery bowel obstruction History of total right hip replacement Hx of vasectomy History of colostomy History of bowel resection for colon cancer History of colonoscopy History of esophagogastroduodenoscopy (EGD) 06/2021 Hiatal hernia small, gastritis Status post Mohs surgery for basal cell carcinoma History of root canal procedure History of wisdom tooth extraction History of tonsillectomy and adenoidectomy History of phacoemulsification of cataract of both eyes with intraocular lens implantation History of cardioversion x2 Family History Father , age 91 Hypertension Diabetes Mother , age 64 metastatic breast cancer Breast cancer Ovarian cancer Brother Colorectal cancer Other Coronary heart disease No family history of adverse response to anesthesia Denies family history of Prostate cancer Crohn's disease Myocardial infarction Lung cancer Inflammatory bowel disease Social History Smoking Status: Former smoker Tobacco Type: Pipe Age Started Using Tobacco: 22; Age Quit Using Tobacco: 52; Second Hand Exposure: No; Do You Dip or Chew Tobacco: No; Hx Alcohol Use: No Hx Substance Use: No Preferred Language: Arabic Communication Ability: Effective Visual Impairment: Diminished Hearing Ability: Normal Cyber Security Engineer Required: No Beliefs That Will Affect Care: None marital status: Current Living Situation: Spouse current occupational 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[employer] How many Children do You have: 1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 Feels Safe at Home: Yes Childhood Exposure to Second-Hand Smoke: Yes (father smoked in home ) Diet: regular caffeine: Yes (drinks coffee daily about half a cup ) Dental Care, Regularly: Yes Physical Activity Frequency: 3-4 Times per Week Physical Activity Frequency Comment: 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 Seatbelt Use: always Sunscreen Use: No (says he does cover up well ) Do you think of yourself as: straight/heterosexual Assistive Devices: Cane Review of Systems A total of 10 systems reviewed and were otherwise negative Physical Exam Vital Signs Vital Signs - 24 hr 08/16/23 00:21 08/16/23 00:54 08/16/23 01:00 Temperature 36.9 C Temperature Source Temporal Artery Scan Pulse Rate 136 H 110 H 104 H Pulse Rhythm Regular Pulse Strength Normal Respiratory Rate 18 29 H Respiratory Effort / Characteristics Non-Labored Spontaneous Respiratory Depth Normal Respiratory Pattern Regular Blood Pressure 126/78 124/90 Blood Pressure Mean 94 101 Blood Pressure Position Sitting Pulse Oximetry 96 Oxygen Delivery Method Room Air Sepsis Recent Fever Within 48 Hours No Sepsis New/Unexplained Change in Mental Status N/A Sepsis Action Taken by Nursing No Action Required 08/16/23 02:00 Temperature Temperature Source Pulse Rate 100 H Pulse Rhythm Pulse Strength Respiratory Rate 29 H Respiratory Effort / Characteristics Respiratory Depth Respiratory Pattern Blood Pressure 127/96 Blood Pressure Mean 106 Blood Pressure Position Pulse Oximetry 95 Oxygen Delivery Method Sepsis Recent Fever Within 48 Hours Sepsis New/Unexplained Change in Mental Status Sepsis Action Taken by Nursing VITALS: Vitals are noted on the nurse's note and reviewed by myself. Vital signs stable. GENERAL: Pleasant male who appears in pain, in no acute distress, nondiaphoretic, well-developed well-nourished. SKIN: Capillary reflex less than 2 seconds. HEENT: Normocephalic. PERRLA. EOMI. Nares patent. Mucous membranes moist. Neck is supple without nuchal rigidity. HEART: Mildly tachycardic rate and rhythm LUNGS: Clear to auscultation bilaterally without wheezes, rales or rhonchi. No retractions or accessory muscle use. ABDOMEN: Positive bowel sounds x 4. Normal tympanic percussion. Soft, tender lower abdomen, ostomy in the left lower quadrant, without masses or organomegaly. Funez sign negative. No guarding or rebound tenderness. No CVA tenderness MUSCULOSKELETAL: No gross musculoskeletal defects. NEURO: Patient was alert and oriented to person place and time. No focal neurological deficits. Course Administered Medications Morphine Sulfate (Morphine Sulfate 4 Mg/Ml 1 Ml Carp\Vial) 4 mg IV Q15M PRN PRN Reason: Pain Stop: 08/30/23 00:26 Last Admin: 08/16/23 01:28 Dose: 4 mg Documented By: Admin: 08/16/23 00:43 Dose: 4 mg Documented By: HUNTER Discontinued Medications Sodium Chloride (Nss) 500 mls @ 999 mls/hr IV .Q31M STA Stop: 08/16/23 00:57 Last Infusion: 08/16/23 01:26 Dose: Infused Documented By: Admin: 08/16/23 00:46 Dose: 999 mls/hr Documented By: HUNTER Ioversol (Optiray 320 500ml) 100 ml IV ONCE ONE Stop: 08/16/23 01:56 Last Admin: 08/16/23 01:55 Dose: 84 ml Documented By: ADI Ondansetron HCl (Ondansetron Inj 2 Mg/Ml 2 Ml Vial) 4 mg IV NOW STA Stop: 08/16/23 00:28 Last Admin: 08/16/23 00:43 Dose: 4 mg Documented By: HUNTER Medical Decision Making Medical Records Attestation: I reviewed the patient's medical records. Home Medications Current Medication List: was personally reviewed by me Laboratory Data Attestation: I reviewed the patient's lab results. 08/16/23 00:45 08/16/23 00:45 Lab Results 08/16/23 08/16/23 Range/Units 00:45 01:13 WBC 14.90 H (4.8-10.8) K/ul RBC 5.10 (4.70-6.10) M/uL Hgb 12.5 L (14.0-18.0) g/dl POC Hgb 7.8 L (14.0-18.0) g/dl Hct 41.4 L (42.0-52.0) % POC Hct 23 L (42-52) % MCV 81.2 (80.0-100.0) fL MCH 24.5 L (25.0-34.0) pg MCHC 30.2 L (32.0-36.0) g/dL RDW Std Deviation 50.9 H (36.4-46.3) fL RDW Coeff of [place] 17.4 H (11.5-14.5) % Plt Count 425 H (130-400) K/uL MPV 8.5 L (9.4-12.4) fL Immature Gran % (Auto) 0.7 % Neut % (Auto) 83.2 % Lymph % (Auto) 7.3 % [place] % (Auto) 7.0 % Eos % (Auto) 1.3 % Baso % (Auto) 0.5 % Neut # (Auto) 12.40 H (1.40-6.50) K/uL Lymph # (Auto) 1.09 L (1.20-3.40) K/uL [place] # (Auto) 1.04 H (0.11-0.59) K/uL Eos # (Auto) 0.19 (0.00-0.50) K/uL Baso # (Auto) 0.07 (0.00-0.20) K/uL Immature Gran # (Auto) 0.11 (0.01-0.20) K/uL POC Sodium 146 H (135-144) mmol/L Sodium 137 (136-145) mmol/L POC Potassium 2.8 L (3.3-5.0) mmol/L Potassium 5.1 (3.5-5.1) mmol/L POC Chloride 115 H (101-112) mmol/L Chloride 103 (98-107) mmol/L Carbon Dioxide 24 (21-32) mmol/L POC Total CO2 13 L (24-31) mmol/L Anion Gap 10 (3-11) POC Anion Gap 21.0 (16-25) mmol/L POC BUN 7 (7-18) mg/dl BUN 14 (6-23) mg/dl Creatinine 1.38 (0.6-1.4) mg/dl POC Creatinine 0.6 (0.6-1.3) mg/dl Est Cr Clr Drug Dosing 40.4 ml/min Est GFR ( Amer) 53.6 ml/min Est GFR (Non-Af Amer) 46.3 ml/min BUN/Creatinine Ratio 10.1 (10-20) Glucose 200 H (70-99(Fasting)) mg/dl POC Glucose (other) 132 H (70-99) mg/dl Lactate 2.5 H* (0.4-2.0) mmol/L Calcium 9.5 (8.6-10.3) mg/dl POC Ioniz Calcium Roc[place]le 0.80 L (1.12-1.32) mmol/l Total Bilirubin 0.7 (0.2-1.0) mg/dl AST 22 (13-39) U/L ALT 23 (7-52) U/L Alkaline Phosphatase 76 (34-104) U/L Troponin I High Sens 10.9 (0-20) pg/ml Total Protein 7.4 (6.0-8.3) gm/dl Albumin 3.9 (3.4-5.0) gm/dl Globulin 3.5 (2.5-4.0) gm/dl Albumin/Globulin Ratio 1.1 (0.9-2) Lipase 28 (11-82) U/L Imaging Data Attestation: I personally reviewed and interpreted this imaging study as follows: Radiologist's Impression: Abdomen/Pelvis CT 08/16/23 00:27 Exam(s): CT ABDOMEN + PELVIS With Contrast IV Amt: 84 ML OPTIRAY 320 EXAM: CT Abdomen and Pelvis With Intravenous Contrast CLINICAL HISTORY: Reason for exam: pain, hx SBO. TECHNIQUE: Axial computed tomography images of the abdomen and pelvis with intravenous contrast. CTDI is 21.71 mGy and DLP is 1009.44 mGy-cm. Automated exposure control was utilized for the study. A dose lowering technique was utilized adhering to the principles of ALARA. CONTRAST: Patient received 84 ML OPTIRAY 320 of IV contrast COMPARISON: CT abdomen pelvis 05/14/2023 FINDINGS: ABDOMEN: Liver: Unremarkable. Gallbladder and bile ducts: Unremarkable. Pancreas: Unremarkable. Spleen: Unremarkable. Adrenals: Unremarkable. Kidneys and ureters: Unremarkable. No obstructing stones. No hydronephrosis. Stomach and bowel: Fluid-filled dilated small bowel loops consistent with obstruction. There is gradual transition from dilated to nondistended within the ileum within which there is fecal material. No pneumatosis or free air. Duodenal diverticulosis. PELVIS: Appendix: No findings to suggest acute appendicitis. Bladder: Unremarkable. Reproductive: Unremarkable as visualized. ABDOMEN and PELVIS: Intraperitoneal space: Trace reactive free fluid. No abscess or free air. Bones/joints: Right hip arthroplasty. Soft tissues: Left lower quadrant colostomy. Parastomal hernia containing fat. Vasculature: Aortobiiliac atherosclerotic calcifications. Lymph nodes: Unremarkable. IMPRESSION: Fluid-filled dilated small bowel loops consistent with obstruction. There is gradual transition from dilated to nondistended within the ileum within which there is fecalized material. No pneumatosis or free air. Electronically signed by: Phuc Zeng MD 08/16/23 02:43 AM MDM Narrative Prior records/ancillary studies reviewed. Triage Nursing notes reviewed. Additional history obtained from family. The patient's history was concerning for abdominal pain. Differential diagnosis: Etiologies such as appendicitis, diverticulitis, PUD, biliary pathology, UTI, pancreatitis, obstruction, mesenteric ischemia, aortic pathology, infections, inflammatory bowel disease, renal colic, as well as others were entertained. Physical examination findings: As above. ER treatment provided: An order was placed for continuous cardiac monitoring. The monitor shows a rate of 60-140 with a sinus rhythm per my Independent interpretation. IV fluids, morphine and Zofran ordered On reassessment the patient felt better. Diagnostics interpreted by me: ECG: Ordered for tachycardia EKG: Irregularly irregular with occasional PVC. Impression A-fib of 105 with occasional PVC independently interpreted myself The labs Independently Interpreted by myself revealed Hyperglycemia without DKA. Lactic 2.5. Leukocytosis. I-STAT most likely is delusional Imaging studies: CT concerning for recurrent bowel obstruction per my independent interpretation. Report was reviewed as above Consultation: A consultation was placed with the hospitalist. The case was discussed and diagnostics were reviewed. The patient was evaluated in the ER for further treatment. Exam and history seem consistent with recurrent bowel obstruction. Patient was placed NPO. He was hydrated as above. Medicine was consulted and case was discussed. Patient be admitted to the medical service for further evaluation and treatment. Patient is agreeable. By the evaluation outlined above emergent etiologies such as appendicitis, diverticulitis, PUD, biliary pathology, UTI, pancreatitis, mesenteric ischemia, aortic pathology, infections, inflammatory bowel disease, renal colic, as well as others were deemed relatively unlikely. The pt informed about the findings as listed above. All questions were answered and pleased with the treatment. The chart was completed utilizing [employer] Speech voice recognition software. Grammatical errors, random word insertions, pronoun errors, and incomplete sentences are an occassional consequence of this system due to software limitations, ambient noise, and hardware issues. Any formal questions or concerns about the content, text, or information contained within the body of this dictation should be directly addressed to the physician dental ceramist assistant for clarification. Impression & Plan SBO (small bowel obstruction) Discharge Plan Visit Data Chief Complaint: Abdominal Pain ED Provider: Heather Solitario ED Midlevel Provider: Kayy Isaac Discharge Problem: SBO (small bowel obstruction) Patient Disposition: Admitted As Inpatient Condition: Fair Forms Stand Alone Forms: [employer] Prescriptions Prescriptions: No Action Xarelto 20 mg tablet 20 mg PO QAM Qty: 90 3RF metformin 500 mg tablet extended release 24 hr 500 mg PO QPM Qty: 90 3RF metoprolol succinate 50 mg tablet extended release 24 hr 75 mg PO DAILY Qty: 120 3RF simvastatin 40 mg tablet 40 mg PO PM Qty: 90 3RF diltiazem HCl [Cartia XT] 120 mg capsule,extended release 24hr 120 mg PO DAILY Qty: 90 3RF levothyroxine 50 mcg tablet 50 mcg PO . ABOUT LUNCHTIME Qty: 90 1RF Rx Instructions: about lunchtime empagliflozin 25 mg tablet 25 mg PO DAILY Qty: 90 3RF mecobalamin (vitamin B12) 1,000 mcg tablet,chewable 1,000 mcg PO QPM Centrum Silver Men 300-600-300 mcg tablet 1 tab PO QAM cholecalciferol (vitamin D3) 50 mcg (2,000 unit) capsule 50 mcg PO QAM aspirin [Adult Low Dose Aspirin] 81 mg tablet,delayed release (DR/EC) 81 mg PO DAILY Qty: 30 0RF glipizide 5 mg tablet extended release 24hr 5 mg PO QAM pantoprazole 40 mg tablet,delayed release (DR/EC) 40 mg PO BID Referrals Referrals: Romulo Barker, [Primary Care Provider] -
[2023-08-16] MEDS: MoRPHine SULFATE 4 MG/ML 1 ML CARP\\VIAL IV PRN ×2 (00:43→01:28)
[2023-08-16 01:21] LABS: Albumin Globulin Ratio 1.1 (0.9-2); Albumin Level 3.9 gm/dl (3.4-5.0); BUN Creatinine Ratio 10.1 (10-20); Bilirubin,Total 0.7 mg/dl (0.2-1.0); Calcium 9.5 mg/dl (8.6-10.3); Creatinine Clr Calc Pharmacy 40.4 ml/min; Est GFR (African American) 53.6 ml/min; Est GFR (Non-African American) 46.3 ml/min; Globulin 3.5 gm/dl (2.5-4.0); Potassium 5.1 mmol/L (3.5-5.1); Total Protein 7.4 gm/dl (6.0-8.3)
[2023-08-16 01:26] LABS: iSTAT Creatinine 0.6 mg/dl (0.6-1.3); iSTAT Hemoglobin 7.8 g/dl (14.0-18.0); iSTAT Ionized Calcium 0.8 mmol/l (1.12-1.32); iSTAT Potassium 2.8 mmol/L (3.3-5.0)
[2023-08-16 01:28] LABS: Troponin I High Sensitivity 10.9 pg/ml (0-20)
[2023-08-16 01:32] LABS: Basophils # (auto) 0.07 K/uL (0.00-0.20); Basophils % (auto) 0.5 %; Eosinophils # (auto) 0.19 K/uL (0.00-0.50); Eosinophils % (auto) 1.3 %; Hematocrit (blood only) 41.4 % (42.0-52.0); Hemoglobin 12.5 g/dl (14.0-18.0); Immature Granulocytes # (auto) 0.11 K/uL (0.01-0.20); Immature Granulocytes % (auto) 0.7 %; Lymphocytes # (auto) 1.09 K/uL (1.20-3.40); Lymphocytes % (auto) 7.3 %; Mean Corpuscular Hemoglobin 24.5 pg (25.0-34.0); Mean Corpuscular Hgb Conc 30.2 g/dL (32.0-36.0); Mean Corpuscular Volume 81.2 fL (80.0-100.0); Mean Platelet Volume 8.5 fL (9.4-12.4); Monocytes # (auto) 1.04 K/uL (0.11-0.59); Neutrophils % (auto) 83.2 %; Platelet Count 425 K/uL (130-400); RDW Coefficient of Variation 17.4 % (11.5-14.5); RDW Standard Deviation 50.9 fL (36.4-46.3)
[2023-08-16] MEDS ORDERED: OPTIRAY 320 500ml IV ONE (01:55)
--- NOTE | 2023-08-16 02:44 | CT Scan Report ---
Exam(s): CT ABDOMEN + PELVIS With Contrast IV Amt: 84 ML OPTIRAY 320 EXAM: CT Abdomen and Pelvis With Intravenous Contrast CLINICAL HISTORY: Reason for exam: pain, hx SBO. TECHNIQUE: Axial computed tomography images of the abdomen and pelvis with intravenous contrast. CTDI is 21.71 mGy and DLP is 1009.44 mGy-cm. Automated exposure control was utilized for the study. A dose lowering technique was utilized adhering to the principles of ALARA. CONTRAST: Patient received 84 ML OPTIRAY 320 of IV contrast COMPARISON: CT abdomen pelvis 05/14/2023 FINDINGS: ABDOMEN: Liver: Unremarkable. Gallbladder and bile ducts: Unremarkable. Pancreas: Unremarkable. Spleen: Unremarkable. Adrenals: Unremarkable. Kidneys and ureters: Unremarkable. No obstructing stones. No hydronephrosis. Stomach and bowel: Fluid-filled dilated small bowel loops consistent with obstruction. There is gradual transition from dilated to nondistended within the ileum within which there is fecal material. No pneumatosis or free air. Duodenal diverticulosis. PELVIS: Appendix: No findings to suggest acute appendicitis. Bladder: Unremarkable. Reproductive: Unremarkable as visualized. ABDOMEN and PELVIS: Intraperitoneal space: Trace reactive free fluid. No abscess or free air. Bones/joints: Right hip arthroplasty. Soft tissues: Left lower quadrant colostomy. Parastomal hernia containing fat. Vasculature: Aortobiiliac atherosclerotic calcifications. Lymph nodes: Unremarkable. IMPRESSION: Fluid-filled dilated small bowel loops consistent with obstruction. There is gradual transition from dilated to nondistended within the ileum within which there is fecalized material. No pneumatosis or free air. Electronically signed by: Phuc Zeng MD 08/16/23 02:43 AM
--- NOTE | 2023-08-16 03:54 | Surgery Consultation ---
Date of Consultation August 16, 2023 Assessment & Plan (1) SBO (small bowel obstruction): I discussed with the treating clinician emergency department the patient is being admitted on the hospitalist service. From surgical perspective we recommend proceeding as follows: Implement n.p.o. status Provide antiemetics if needed Provide IV fluid for hydration Follow serial labs I discussed with the patient and his son who is present at bedside. The patient has had multiple small bowel obstructions as listed in the history of present illness. He has not required any surgical intervention since 2016. At the present time the patient does have a slight leukocytosis and he did have an elevated lactic acid level but he is nontoxic-appearing at this time and is noted to be hemodynamically stable without acute kidney injury. Will therefore try conservative treatment as this has been successful in the past. Will monitor his clinical condition closely with further recommendations to follow. Due to the patient's age, previous abdominal surgeries, and medical comorbidities it would be preferable to treat him in a conservative manner. History of Present Illness Reason for Consultation: Small bowel obstruction History of Present Illness This is an 87-year-old male who presented to the emergency department with abdominal pain. This man has a history of colon cancer in the 1970s. He believes sometime around 1977 he had a colorectal cancer which required surgical intervention but he notes that he had to have a colostomy as he could not have a primary anastomosis. Since the surgery the patient notes that he has had multiple small bowel obstructions. The patient did provide me with a list of his previous obstructions and he did have bowel obstructions in April 2017, May 2017, September 2017, May 2020, April 2021, June 2022, and most recently April 2023. The patient notes that he did require 1 additional abdominal surgeryhe believes during his bowel obstruction in April 2017 he did require exploratory surgery with lysis of adhesions. During his most recent obstruction in April of this year he notes that he did not require surgery and he did not even require NG tube placement. He did present to the emergency department secondary to abdominal pain that began shortly after 3:00 PM on 08/14/2023. The patient notes that he was in his usual state of health and his ostomy appeared to be functioning properly. He did note that he had some loose stool in his ostomy at approximately 3:00 PM and subsidy developed some abdominal pain to the right of his umbilicus thereafter. He denied any palliative or provocative factors and did also not have any radiation of his pain. He then noted that the ostomy output slowed down with very little to no stool in his ostomy bag and very little amount of flatus in the bag. He did feel nauseated but did not have any emesis. He also denied any fevers, shakes, or chills. Since arrival to the hospital the patient has had labs and imaging which independent reviewed. CT scan of the abdomen pelvis showed the patient had some fluid-filled and dilated small bowel loops consistent with small bowel obstruction with a gradual transition point within the ileum. There is some fecalized material near this transition point. There is no pneumatosis or free air. Labs include a CBC were white blood cell count was elevated at 14.9. His hemoglobin and hematocrit were 12.5 and 41.4. Platelet count is 4 and 25,000. Chemistry profile showed sodium is 137 with with a normal potassium. BUN and creatinine are both within the normal range. Patient did have a slight elevation of his lactic acid at 2.5. There is no elevation of his LFTs or lipase. Since arrival to the emergency department the patient did require 1 dose of morphine and the amount of 4 mg. He notes that this markedly improved his abdominal pain. Both the patient and his son (who was present at bedside) noted that there did appear to be some ostomy output developing since his arrival to the emergency department. At the time of my interview the patient was resting comfortably in bed and he was in no distress. Allergies Allergy/AdvReac Type Severity Reaction Status Date / Time tetanus toxoid, adsorbed Allergy Intermediate BLISTERS Verified 08/11/23 10:04 AND EYES SWELLING hydromorphone AdvReac Intermediate HALLUCINATI Verified 08/11/23 10:04 ONS lorazepam AdvReac Intermediate HALLUCINATI Verified 08/11/23 10:04 ONS Home Medications Medication Instructions Recorded Confirmed Type mecobalamin (vitamin B12) 1,000 1,000 mcg PO QPM 07/23/20 08/16/23 History mcg chewable tablet cholecalciferol (vitamin D3) 50 50 mcg PO QAM 12/10/20 08/16/23 History mcg (2,000 unit) capsule [id number] 300 mcg-K 60 1 tab PO QAM 12/10/20 08/16/23 History mcg-lycop 600 mcg-lutein 300 mcg tablet (Centrum Silver Men) aspirin 81 mg tablet,delayed 81 mg PO DAILY #30 tabs 05/29/22 08/16/23 Rx release (Adult Low Dose Aspirin) rivaroxaban 20 mg tablet (Xarelto) 20 mg PO QAM #90 tabs 11/30/22 08/16/23 Rx metformin 500 mg tablet,extended 500 mg PO QPM #90 tabs 02/12/23 08/16/23 Rx release 24 hr metoprolol succinate 50 mg 75 mg (1.5 x 50 mg) PO DAILY #120 02/17/23 08/16/23 Rx tablet,extended release 24 hr tabs simvastatin 40 mg tablet 40 mg PO PM #90 tabs 03/25/23 08/16/23 Rx diltiazem HCl 120 mg 120 mg PO DAILY #90 caps 04/05/23 08/16/23 Rx capsule,extended release 24 hr (Cartia XT) levothyroxine 50 mcg tablet 50 mcg PO . ABOUT LUNCHTIME #90 08/05/23 08/16/23 Rx tabs empagliflozin 25 mg tablet 25 mg PO DAILY #90 tabs 08/13/23 08/16/23 Rx glipizide 5 mg tablet, extended 5 mg PO QAM 08/16/23 08/16/23 History release 24 hr pantoprazole 40 mg tablet,delayed 40 mg PO BID 08/16/23 08/16/23 History release Patient History Medical History (Updated 08/16/23 @ 04:59 by Lolita Pruett DO) Hypothyroidism CVA (cerebral vascular accident) CKD (chronic kidney disease) Expressive aphasia Hypertrophy of both inferior nasal turbinates Chronic rhinitis GERD (gastroesophageal reflux disease) Anemia Rotator cuff tear Per MRI 02/2020. Followed by orthopedics. Declined operative management. 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 Diabetes mellitus, type 2 On anticoagulant therapy xarelto daily History of colon cancer 1978 Surgical History H/O hernia repair Hx of abdominal surgery bowel obstruction History of total right hip replacement Hx of vasectomy History of colostomy History of bowel resection for colon cancer History of colonoscopy History of esophagogastroduodenoscopy (EGD) 06/2021 Hiatal hernia small, gastritis Status post Mohs surgery for basal cell carcinoma History of root canal procedure History of wisdom tooth extraction History of tonsillectomy and adenoidectomy History of phacoemulsification of cataract of both eyes with intraocular lens implantation History of cardioversion x2 Family History Father , age 91 Hypertension Diabetes Mother , age 64 metastatic breast cancer Breast cancer Ovarian cancer Brother Colorectal cancer Other Coronary heart disease No family history of adverse response to anesthesia Denies family history of Prostate cancer Crohn's disease Myocardial infarction Lung cancer Inflammatory bowel disease Social History Smoking Status: Former smoker Tobacco Type: Pipe Age Started Using Tobacco: 22; Age Quit Using Tobacco: 52; Second Hand Exposure: No; Do You Dip or Chew Tobacco: No; Hx Alcohol Use: No Hx Substance Use: No Preferred Language: Kinyarwanda Communication Ability: Effective Visual Impairment: Diminished Hearing Ability: Normal Primary Care Sales Representative Required: No Beliefs That Will Affect Care: None marital status: Current Living Situation: Spouse current occupational 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[employer], [email or web address] How many Children do You have: 1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 Feels Safe at Home: Yes Childhood Exposure to Second-Hand Smoke: Yes (father smoked in home ) Diet: regular caffeine: Yes (drinks coffee daily about half a cup ) Dental Care, Regularly: Yes Physical Activity Frequency: 3-4 Times per Week Physical Activity Frequency Comment: 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 Seatbelt Use: always Sunscreen Use: No (says he does cover up well ) Do you think of yourself as: straight/heterosexual Assistive Devices: Cane Review of Systems Constitutional: no fever and no chills Ear, Nose, Mouth, Throat: no hearing loss Respiratory: no cough and no dyspnea Cardiovascular: no chest pain Gastrointestinal: as per Subjective / HPI Genitourinary: no dysuria Musculoskeletal: no back pain Integumentary: no rash Neurologic: no localized weakness Physical Exam Constitutional: WD/WN, vitals as above Patient is nontoxic-appearing Eyes: no conjunctival abnormality ENMT: Ears: no hearing impairment and no external ear abnormality Mouth: no oropharynx abnormality Neck: trachea midline Respiratory: normal respiratory effort; no respiratory distress and no labored breathing Cardiovascular: Rate/Rhythm: regular rate and regular rhythm Gastrointestinal (Abdomen): Abdomen is minimally distended but overall soft and nonrigid. The patient did have an ostomy to the left of his umbilicus. His ostomy appeared pink and viable. There is a small amount of gas in the collection bag and there is also a small amount of stool protruding from the ostomy orifice at the time of my exam. There was pain noted with palpation just to the right of the umbilicus but there is no rebound tenderness. Musculoskeletal: No calf tenderness Skin: no rashes Neurologic: moves all extremities Psychiatric: A+Ox3, euthymic affect Results & Data Vital Signs (Past 12 Hours) Vital Signs Temp Pulse Resp BP Pulse Ox O2 Del Method 08/16/23 02:00 100 H 29 H 127/96 95 08/16/23 01:00 104 H 29 H 124/90 08/16/23 00:54 110 H 08/16/23 00:21 36.9 C 136 H 18 126/78 96 Room Air PG Care Time/CCT Total # of Minutes Spent Total Time Spent with Patient: Total time spent is greater than 50% in coordination of care (as documented) at patient's floor/unit and/or counseling patient: Coding Level of Care Code 55976 INT INP/OBS CARE 3/75MIN Diagnoses SBO (small bowel obstruction) K56.609
--- NOTE | 2023-08-16 04:17 | History & Physical Report ---
Date of Service August 16, 2023 Assessment & Plan (1) SBO (small bowel obstruction): Plan: 87yo male with history of SBO presenting with acute onset abdominal pain, nausea and decreased output from his colostomy. Symptoms similar to prior episodes of SBO which was confirmed on CT. Patient with mild abdominal tenderness, no distention, no nausea -Admit to medical with telemetry -Maintain NPO status -Gentle hydration with LR at 80mL/hr x 2L -Check electrolytes and replete as needed -Morphine as needed for pain -Zofran as needed for nausea -General surgery consultation appreciated (2) Cough: Plan: Patient with ongoing cough since having Covid-19 3 weeks ago. Now moist sounding. He does have an elevated WBC count at 14.9 as well as elevation of lactate. Saturations are borderline 93% on room air and faint crackles present in left lung -Check CXR to rule out PNA (3) Atrial fibrillation: Plan: Elevated HR presently 103 - stress, pain, possible infection contributing -Continue home Metoprolol -Continue Diltiazem -Continue anticoagulation with Rivaroxaban (4) Hypothyroidism: Plan: Chronic. Last TSH WNL at 2.281 on 03/26/23 -Continue Synthroid (5) CVA (cerebral vascular accident): Plan: Patient with some very mild expressive aphasia as residual from his prior CVA -Continue ASA -Continue Simvastatin (6) Diabetes mellitus, type 2: Plan: Chronic. Last YavE5T=7.4 on 05/15/23. Blood sugar elevated at 200. He is on Metformin and Empagliflozin outpatient -Lantus 5u daily -ISS -Goal blood sugar 110 - 140 F/E/N - LR at 80mL/hr x 2L, monitor electroltyes and replete as needed, NPO for now Ppx - On Rivaroxaban anticoagulation, continue Code - DNR/DNI per discussion with patient and son Dispo - Admit to medical with telemetry History of Present Illness Chief Complaint: abdominal pain Primary Care Provider: DO Amilcar Turner Mikel is an 87yo male with multiple medical comorbidities presenting with abdominal pain, concern for recurrence of SBO. He has a history of prior CVA, AF on Rivaroxaban anticoagulation, prior SBO. Patient with colostomy in place. Around 13:00 he had an episode of diarrhea followed by passage of a small amount of normal stool. He had dinner around 17:00 consisting of cauliflower soup and some zucchini cake. Around 21:00 he developed severe right sided abdominal pain with some nausea. Pain felt similar to his prior SBOs. He has not had any output in his ostomy since then. Additionally, patient with ongoing cough. He had Covid-19 3 weeks ago. He feels that he is recovering but has a persistent cough, now more moist sounding. He denies shortness of breath, chest pain, fever, chills or sweats. In the ER he is afebrile, HD stable ER Course: Morphine NSS Allergies Allergy/AdvReac Type Severity Reaction Status Date / Time tetanus toxoid, adsorbed Allergy Intermediate BLISTERS Verified 08/11/23 10:04 AND EYES SWELLING hydromorphone AdvReac Intermediate HALLUCINATI Verified 08/11/23 10:04 ONS lorazepam AdvReac Intermediate HALLUCINATI Verified 08/11/23 10:04 ONS Home Medications Medication Instructions Recorded Confirmed Type mecobalamin (vitamin B12) 1,000 1,000 mcg PO QPM 07/23/20 08/16/23 History mcg chewable tablet cholecalciferol (vitamin D3) 50 50 mcg PO QAM 12/10/20 08/16/23 History mcg (2,000 unit) capsule [id number] 300 mcg-K 60 1 tab PO QAM 12/10/20 08/16/23 History mcg-lycop 600 mcg-lutein 300 mcg tablet (Centrum Silver Men) aspirin 81 mg tablet,delayed 81 mg PO DAILY #30 tabs 05/29/22 08/16/23 Rx release (Adult Low Dose Aspirin) rivaroxaban 20 mg tablet (Xarelto) 20 mg PO QAM #90 tabs 11/30/22 08/16/23 Rx metformin 500 mg tablet,extended 500 mg PO QPM #90 tabs 02/12/23 08/16/23 Rx release 24 hr metoprolol succinate 50 mg 75 mg (1.5 x 50 mg) PO DAILY #120 02/17/23 08/16/23 Rx tablet,extended release 24 hr tabs simvastatin 40 mg tablet 40 mg PO PM #90 tabs 03/25/23 08/16/23 Rx diltiazem HCl 120 mg 120 mg PO DAILY #90 caps 04/05/23 08/16/23 Rx capsule,extended release 24 hr (Cartia XT) levothyroxine 50 mcg tablet 50 mcg PO . ABOUT LUNCHTIME #90 08/05/23 08/16/23 Rx tabs empagliflozin 25 mg tablet 25 mg PO DAILY #90 tabs 08/13/23 08/16/23 Rx glipizide 5 mg tablet, extended 5 mg PO QAM 08/16/23 08/16/23 History release 24 hr pantoprazole 40 mg tablet,delayed 40 mg PO BID 08/16/23 08/16/23 History release Past Med/Surg History Medical History (Updated 08/16/23 @ 04:59 by Lolita Pruett DO) Hypothyroidism CVA (cerebral vascular accident) CKD (chronic kidney disease) Expressive aphasia Hypertrophy of both inferior nasal turbinates Chronic rhinitis GERD (gastroesophageal reflux disease) Anemia Rotator cuff tear Per MRI 02/2020. Followed by orthopedics. Declined operative management. 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 Diabetes mellitus, type 2 On anticoagulant therapy xarelto daily History of colon cancer 1978 Surgical History H/O hernia repair Hx of abdominal surgery bowel obstruction History of total right hip replacement Hx of vasectomy History of colostomy History of bowel resection for colon cancer History of colonoscopy History of esophagogastroduodenoscopy (EGD) 06/2021 Hiatal hernia small, gastritis Status post Mohs surgery for basal cell carcinoma History of root canal procedure History of wisdom tooth extraction History of tonsillectomy and adenoidectomy History of phacoemulsification of cataract of both eyes with intraocular lens implantation History of cardioversion x2 Family History Father , age 91 Hypertension Diabetes Mother , age 64 metastatic breast cancer Breast cancer Ovarian cancer Brother Colorectal cancer Other Coronary heart disease No family history of adverse response to anesthesia Denies family history of Prostate cancer Crohn's disease Myocardial infarction Lung cancer Inflammatory bowel disease Social History Smoking Status: Former smoker Tobacco Type: Pipe Age Started Using Tobacco: 22; Age Quit Using Tobacco: 52; Second Hand Exposure: No; Do You Dip or Chew Tobacco: No; Hx Alcohol Use: No Hx Substance Use: No Preferred Language: Sami Communication Ability: Effective Visual Impairment: Diminished Hearing Ability: Normal Dock Supervisor Required: No Beliefs That Will Affect Care: None marital status: Current Living Situation: Spouse current occupational 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, [employer] How many Children do You have: 1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 Feels Safe at Home: Yes Childhood Exposure to Second-Hand Smoke: Yes (father smoked in home ) Diet: regular caffeine: Yes (drinks coffee daily about half a cup ) Dental Care, Regularly: Yes Physical Activity Frequency: 3-4 Times per Week Physical Activity Frequency Comment: 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 Seatbelt Use: always Sunscreen Use: No (says he does cover up well ) Do you think of yourself as: straight/heterosexual Assistive Devices: Cane Review of Systems Review of Systems: All systems reviewed & are unremarkable except as noted in HPI & below Physical Exam Physical Exam: General: patient resting comfortably, NAD, non-toxic in appearance, AA&O x 4 Skin: warm, dry, intact, no rashes or lesions HEENT: NC/AT, PERRL, EOMI, anicteric sclera, conjunctiva without injection, external ear normal to inspection and nontender, nares patent, moist mucus membranes, dentition intact, no oropharyngeal lesions, neck supple, trachea midline, no LAD, no thyromegaly, no JVD Heart: +S1/S2, irregularly irregular, no m/r/g Lungs: equal air entry bilaterally, soft crackles at left base, no rhonchi or wheeze Abd: +BS, soft, ND, some tenderness in the RLQ without rebound/gua rding/peritonitis, colostomy in place with no appreciable output, no masses/organomegaly/ascites Ext: warm, 2+ pulses in UE/LE bilaterally, no clubbing/cyanosis or edema Neuro: nonfocal, patient AA&O x 4, speech intact, no facial droop, moving all extremities on command with equal strength 5/5 Results & Data Results & Data Vital Signs (Past 12 Hours) Vital Signs Temp Pulse Resp BP Pulse Ox O2 Del Method 08/16/23 03:30 103 H 16 142/102 H 93 08/16/23 03:00 105 H 30 H 131/102 H 95 08/16/23 02:30 104 H 33 H 129/102 H 92 08/16/23 02:30 129/102 H 08/16/23 02:00 100 H 29 H 127/96 95 08/16/23 01:00 104 H 29 H 124/90 08/16/23 00:54 110 H 08/16/23 00:21 36.9 C 136 H 18 126/78 96 Room Air Laboratory Results Laboratory Results WBC 14.90 K/ul (4.8-10.8) H 08/16/23 00:45 RBC 5.10 M/uL (4.70-6.10) 08/16/23 00:45 Hgb 12.5 g/dl (14.0-18.0) L 08/16/23 00:45 POC Hgb 7.8 g/dl (14.0-18.0) L 08/16/23 01:13 Hct 41.4 % (42.0-52.0) L 08/16/23 00:45 POC Hct 23 % (42-52) L 08/16/23 01:13 MCV 81.2 fL (80.0-100.0) 08/16/23 00:45 MCH 24.5 pg (25.0-34.0) L 08/16/23 00:45 MCHC 30.2 g/dL (32.0-36.0) L 08/16/23 00:45 RDW Std Deviation 50.9 fL (36.4-46.3) H 08/16/23 00:45 RDW Coeff of [place] 17.4 % (11.5-14.5) H 08/16/23 00:45 Plt Count 425 K/uL (130-400) H 08/16/23 00:45 MPV 8.5 fL (9.4-12.4) L 08/16/23 00:45 Immature Gran % (Auto) 0.7 % 08/16/23 00:45 Neut % (Auto) 83.2 % 08/16/23 00:45 Lymph % (Auto) 7.3 % 08/16/23 00:45 [place] % (Auto) 7.0 % 08/16/23 00:45 Eos % (Auto) 1.3 % 08/16/23 00:45 Baso % (Auto) 0.5 % 08/16/23 00:45 Neut # (Auto) 12.40 K/uL (1.40-6.50) H 08/16/23 00:45 Lymph # (Auto) 1.09 K/uL (1.20-3.40) L 08/16/23 00:45 [place] # (Auto) 1.04 K/uL (0.11-0.59) H 08/16/23 00:45 Eos # (Auto) 0.19 K/uL (0.00-0.50) 08/16/23 00:45 Baso # (Auto) 0.07 K/uL (0.00-0.20) 08/16/23 00:45 Immature Gran # (Auto) 0.11 K/uL (0.01-0.20) 08/16/23 00:45 POC Sodium 146 mmol/L (135-144) H 08/16/23 01:13 Sodium 137 mmol/L (136-145) 08/16/23 00:45 POC Potassium 2.8 mmol/L (3.3-5.0) L 08/16/23 01:13 Potassium 5.1 mmol/L (3.5-5.1) 08/16/23 00:45 POC Chloride 115 mmol/L (101-112) H 08/16/23 01:13 Chloride 103 mmol/L (98-107) 08/16/23 00:45 Carbon Dioxide 24 mmol/L (21-32) 08/16/23 00:45 POC Total CO2 13 mmol/L (24-31) L 08/16/23 01:13 Anion Gap 10 (3-11) 08/16/23 00:45 POC Anion Gap 21.0 mmol/L (16-25) 08/16/23 01:13 POC BUN 7 mg/dl (7-18) 08/16/23 01:13 BUN 14 mg/dl (6-23) 08/16/23 00:45 Creatinine 1.38 mg/dl (0.6-1.4) 08/16/23 00:45 POC Creatinine 0.6 mg/dl (0.6-1.3) 08/16/23 01:13 Est Cr Clr Drug Dosing 40.4 ml/min 08/16/23 00:45 Est GFR ( Amer) 53.6 ml/min 08/16/23 00:45 Est GFR (Non-Af Amer) 46.3 ml/min 08/16/23 00:45 BUN/Creatinine Ratio 10.1 (10-20) 08/16/23 00:45 Glucose 200 mg/dl (70-99(Fasting)) H 08/16/23 00:45 POC Glucose (other) 132 mg/dl (70-99) H 08/16/23 01:13 Lactate 2.5 mmol/L (0.4-2.0) H* 08/16/23 00:45 Calcium 9.5 mg/dl (8.6-10.3) 08/16/23 00:45 POC Ioniz Calcium [place] 0.80 mmol/l (1.12-1.32) L 08/16/23 01:13 Total Bilirubin 0.7 mg/dl (0.2-1.0) 08/16/23 00:45 AST 22 U/L (13-39) 08/16/23 00:45 ALT 23 U/L (7-52) 08/16/23 00:45 Alkaline Phosphatase 76 U/L (34-104) 08/16/23 00:45 Troponin I High Sens 10.9 pg/ml (0-20) 08/16/23 00:45 Total Protein 7.4 gm/dl (6.0-8.3) 08/16/23 00:45 Albumin 3.9 gm/dl (3.4-5.0) 08/16/23 00:45 Globulin 3.5 gm/dl (2.5-4.0) 08/16/23 00:45 Albumin/Globulin Ratio 1.1 (0.9-2) 08/16/23 00:45 Lipase 28 U/L (11-82) 08/16/23 00:45 Impressions Abdomen/Pelvis CT 08/16/23 00:27 Exam(s): CT ABDOMEN + PELVIS With Contrast IV Amt: 84 ML OPTIRAY 320 EXAM: CT Abdomen and Pelvis With Intravenous Contrast CLINICAL HISTORY: Reason for exam: pain, hx SBO. TECHNIQUE: Axial computed tomography images of the abdomen and pelvis with intravenous contrast. CTDI is 21.71 mGy and DLP is 1009.44 mGy-cm. Automated exposure control was utilized for the study. A dose lowering technique was utilized adhering to the principles of ALARA. CONTRAST: Patient received 84 ML OPTIRAY 320 of IV contrast COMPARISON: CT abdomen pelvis 05/14/2023 FINDINGS: ABDOMEN: Liver: Unremarkable. Gallbladder and bile ducts: Unremarkable. Pancreas: Unremarkable. Spleen: Unremarkable. Adrenals: Unremarkable. Kidneys and ureters: Unremarkable. No obstructing stones. No hydronephrosis. Stomach and bowel: Fluid-filled dilated small bowel loops consistent with obstruction. There is gradual transition from dilated to nondistended within the ileum within which there is fecal material. No pneumatosis or free air. Duodenal diverticulosis. PELVIS: Appendix: No findings to suggest acute appendicitis. Bladder: Unremarkable. Reproductive: Unremarkable as visualized. ABDOMEN and PELVIS: Intraperitoneal space: Trace reactive free fluid. No abscess or free air. Bones/joints: Right hip arthroplasty. Soft tissues: Left lower quadrant colostomy. Parastomal hernia containing fat. Vasculature: Aortobiiliac atherosclerotic calcifications. Lymph nodes: Unremarkable. IMPRESSION: Fluid-filled dilated small bowel loops consistent with obstruction. There is gradual transition from dilated to nondistended within the ileum within which there is fecalized material. No pneumatosis or free air. Electronically signed by: Phuc Zeng MD 08/16/23 02:43 AM ECG Additional Comments: Study shows AF with RVR, RBBB PG Care Time/CCT Total # of Minutes Spent Total Time Spent with Patient: Total time spent is greater than 50% in coordination of care (as documented) at patient's floor/unit and/or counseling patient: Coding Level of Care Code 46556 INT INP/OBS CARE 2/55MIN Diagnoses SBO (small bowel obstruction) K56.609 Cough R05.9 Atrial fibrillation I48.91 Hypothyroidism E03.9 CVA (cerebral vascular accident) I63.9 Diabetes mellitus, type 2 E11.9
[2023-08-16] MEDS ORDERED: MoRPHine SULFATE 2 MG/ML CARP IV PRN (06:43)
[2023-08-16] MEDS ORDERED: GLUCAGON FOR INJ 1 MG VIAL SQ PRN (06:43)
[2023-08-16] MEDS ORDERED: CARBOHYDRATES FOR HYPOGLYCEMIA PO PRN (06:43)
[2023-08-16] MEDS ORDERED: MoRPHine SULFATE 4 MG/ML 1 ML CARP\\VIAL IV PRN (06:43)
[2023-08-16] MEDS ORDERED: GLUCOSE 10 TAB/TUBE PO PRN (06:43)
[2023-08-16] MEDS ORDERED: GLUCOSE 40% GEL 15 GM TUBE PO PRN (06:43)
[2023-08-16] MEDS ORDERED: DEXTROSE 50% 50 ML SYRINGE IV PRN (06:43)
[2023-08-16] MEDS ORDERED: ONDANSETRON INJ 2 MG/ML 2 ML VIAL IV PRN (06:43)
[2023-08-16] MEDS: LACTATED RINGER'S 1,000 ML IV SCH ×2 (08:01→17:11)
[2023-08-16 08:05] LABS: Magnesium 2.3 mg/dl (1.7-2.4)
--- NOTE | 2023-08-16 08:08 | Hospitalist Progress Note ---
Date of Service August 16, 2023 Assessment & Plan (1) SBO (small bowel obstruction): Plan: Patient with history of abdominal resection and colostomy Copious amounts of diarrhea yesterday. This is resolved. Patient now with flatus in the colostomy bag and small amount of stool Patient has no discharge from the anus. No previous development of fistula Pain is significantly improved No fever (2) Cough: Plan: Nonproductive. Patient initially with signs and symptoms of COVID approximately 3 weeks ago. Continue supportive care (3) COVID-19: Plan: Symptoms began approximately 3 weeks ago. Patient is outside the window for treatment or isolation No indication for steroids at this time Continue supportive care (4) Diabetes mellitus, type 2: Plan: Hemoglobin A1c 7.4% on 05/15/2023. This appears to be his baseline. Home medications include empagliflozin 25 mg p.o. daily and glipizide 5 mg p.o. every morning and metformin 500 mg every afternoon These have been held secondary to the small bowel obstruction. For now, continue with Lantus as well as sliding scale insulin with NovoLog (5) Atrial fibrillation: Plan: Permanent Home medications include rivaroxaban 20 mg p.o. every morning for anticoagulation Also continue diltiazem and metoprolol succinate (6) Iron deficiency: Plan: Previously required Venofer IV infusion Check repeat labs in the morning as [id number] labs are not consistent with serum labs May benefit from IV iron based on those values (7) GERD (gastroesophageal reflux disease): Plan: No acute complaints. Continue with pantoprazole 40 mg p.o. twice daily (8) CVA (cerebral vascular accident): Plan: Patient reports 2 prior strokes. Continue with simvastatin 40 mg p.o. daily, aspirin 81 mg p.o. daily Patient has no acute signs or symptoms of recurrent TIA or stroke Continue to monitor Admission and Anticipated Discharge Date Admission Date: August 16, 2023 Supervising Physician Co-Signing Physician Notes MARISOL Supervision Note: I personally saw and examined the patient. I verified all holloway points and agree with MARISOL [place] with the following exceptions and/or additions: S-pt feelin gbetter, no abd pain, gas and small stool in colostomy bag, no nausea. Tele with rate controlled afib O- Vitals reviewed Gen: [AAOx3, NAD] HEENT: [anicteric sclerae, EOMI] Abd colostomy bag with gas and small amount stool A/P-87 yo male here with h/o Afib, CVA, colon CA, SBOs, here with SBO improving already with conservative measures adv diet to clears, continue IVFs with likely erroneous lab findings--> repeat BMP, CBC now Subjective Attending: Dr. Martinez DO NOT BILL PATIENT WAS ADMITTED AFTER MIDNIGHT. PLEASE REFER TO H&P This is an 87-year-old male who was admitted this morning at approximately 4 AM. Patient was found to have small bowel obstruction after presenting with onset of acute abdominal pain, nausea, decreased output from his colostomy. Patient does not appear to be surgical at this time. Surgery consultation has been placed. Had some SOB on admission with moist cough. Currently 98% on room air. History of COVID-19 on 08/05/2023. Elevated WBC at 14.9 Na+ 146 K+ 2.8 Mag+ 2.3 Also noted that patient is anemia secondary to iron deficiency. Labs 05/15/2023 with Ferritin at 13 (8-388). Iron 34 (35-175). This is his trend since 2019 Patient is improving today. Is a very small amount of solid stool in his colostomy bag. Multiple episodes where he had to empty the colostomy bag of gas. No further diarrhea. Abdominal pain is improving. Patient has no acute complaints. He denies fever. No further nausea or vomiting. Review of Systems 2 Review of Systems: A total of 10 systems was reviewed and is negative other than as listed in the HPI Physical Exam 2 Physical Exam: GENERAL : No acute distress EYES: No icterus, gaze conjugate NOSE: No evidence of epistaxis MOUTH: No lesions or candidiasis NECK: Supple LUNGS: CTA B/L, no wheezes, rales or rhonchi HEART: Regular, rate controlled ABDOMEN: Soft, NT, ND, BS Present. Positive for some abdominal guarding. No leakage around colostomy bag. Very small amount of stool in colostomy bag. EXTREMITIES: No LE edema, pedal pulses intact NEURO: A&OX3 Results & Data Results & Data Vital Signs (Past 12 Hours) Vital Signs Temp Pulse Resp BP Pulse Ox O2 Del Method 08/16/23 07:01 73 08/16/23 06:00 78 21 116/76 98 08/16/23 05:12 85 08/16/23 05:00 80 20 118/73 96 08/16/23 04:00 114 H 27 H 123/74 94 08/16/23 03:30 103 H 16 142/102 H 93 08/16/23 03:00 105 H 30 H 131/102 H 95 08/16/23 02:30 104 H 33 H 129/102 H 92 08/16/23 02:30 129/102 H 08/16/23 02:00 100 H 29 H 127/96 95 08/16/23 01:00 104 H 29 H 124/90 08/16/23 00:54 110 H 08/16/23 00:21 36.9 C 136 H 18 126/78 96 Room Air Laboratory Results Abnormal Labs 08/16/23 08/16/23 08/16/23 00:45 01:13 08:08 WBC 14.90 H Hgb 12.5 L POC Hgb 7.8 L Hct 41.4 L POC Hct 23 L MCH 24.5 L MCHC 30.2 L RDW Std Deviation 50.9 H RDW Coeff of [place] 17.4 H Plt Count 425 H MPV 8.5 L Neut # (Auto) 12.40 H Lymph # (Auto) 1.09 L [place] # (Auto) 1.04 H POC Sodium 146 H POC Potassium 2.8 L POC Chloride 115 H POC Total CO2 13 L Glucose 200 H POC Glucose 134 H POC Glucose (other) 132 H Lactate 2.5 H* POC Ioniz Calcium [place] 0.80 L 08/16/23 00:45 08/16/23 00:45 Diagnostic Findings Abdomen/Pelvis CT 08/16/23 00:27 Exam(s): CT ABDOMEN + PELVIS With Contrast IV Amt: 84 ML OPTIRAY 320 EXAM: CT Abdomen and Pelvis With Intravenous Contrast CLINICAL HISTORY: Reason for exam: pain, hx SBO. TECHNIQUE: Axial computed tomography images of the abdomen and pelvis with intravenous contrast. CTDI is 21.71 mGy and DLP is 1009.44 mGy-cm. Automated exposure control was utilized for the study. A dose lowering technique was utilized adhering to the principles of ALARA. CONTRAST: Patient received 84 ML OPTIRAY 320 of IV contrast COMPARISON: CT abdomen pelvis 05/14/2023 FINDINGS: ABDOMEN: Liver: Unremarkable. Gallbladder and bile ducts: Unremarkable. Pancreas: Unremarkable. Spleen: Unremarkable. Adrenals: Unremarkable. Kidneys and ureters: Unremarkable. No obstructing stones. No hydronephrosis. Stomach and bowel: Fluid-filled dilated small bowel loops consistent with obstruction. There is gradual transition from dilated to nondistended within the ileum within which there is fecal material. No pneumatosis or free air. Duodenal diverticulosis. PELVIS: Appendix: No findings to suggest acute appendicitis. Bladder: Unremarkable. Reproductive: Unremarkable as visualized. ABDOMEN and PELVIS: Intraperitoneal space: Trace reactive free fluid. No abscess or free air. Bones/joints: Right hip arthroplasty. Soft tissues: Left lower quadrant colostomy. Parastomal hernia containing fat. Vasculature: Aortobiiliac atherosclerotic calcifications. Lymph nodes: Unremarkable. IMPRESSION: Fluid-filled dilated small bowel loops consistent with obstruction. There is gradual transition from dilated to nondistended within the ileum within which there is fecalized material. No pneumatosis or free air. Electronically signed by: Phuc Zeng MD 08/16/23 02:43 AM PG Care Time/CCT Total # of Minutes Spent Total Time Spent with Patient: Total time spent is greater than 50% in coordination of care (as documented) at patient's floor/unit and/or counseling patient: Coding Level of Care Code None Diagnoses SBO (small bowel obstruction) K56.609 Cough R05.9 COVID-19 U07.1 Diabetes mellitus, type 2 E11.9 Atrial fibrillation I48.91 Iron deficiency E61.1 GERD (gastroesophageal reflux disease) K21.9 CVA (cerebral vascular accident) I63.9 Comment No charge. Admitted after midnight
[2023-08-16 08:11] LABS: Phosphorus 2.9 mg/dl (2.5-4.9)
[2023-08-16] MEDS: INSULIN ASPART PER UNIT CHARGE SC SCH ×4 (08:12→20:27)
--- NOTE | 2023-08-16 08:50 | XRay Report ---
XR chest 1V portable CLINICAL HISTORY: ?PNA COMPARISON STUDY: Chest radiograph June 26, 2022. FINDINGS: There is no pneumothorax or pleural effusion. There is moderate cardiomegaly. Mild intersti tial thickening. No consolidation is identified. Lung volumes are normal. IMPRESSION: Stable cardiomegaly. Subtle interstitial thickening which favors pulmonary vascular congestion. An in fectious process could appear similar although is considered less likely. No consolidation. ACT 112: Negative or not required by law. Electronically signed by: Sami Tinajero M.D. 08/16/2023 8:48 AM
[2023-08-16] MEDS ORDERED: ASPIRIN 81 MG ECTAB PO SCH (09:00)
[2023-08-16] MEDS ORDERED: dilTIAZem HCL 120 MG CAPCR PO SCH (09:00)
[2023-08-16] MEDS ORDERED: POTASSIUM CHLORIDE / WTR 10 MEQ/100 ML PLCT IV SCH (09:00)
[2023-08-16] MEDS: PANTOprazole 40 MG TAB PO SCH ×2 (09:33→20:31)
[2023-08-16] MEDS: RIVAROXABAN 20 MG TAB PO SCH (09:33)
[2023-08-16] MEDS: METOPROLOL SUCC 25MG EXT REL TAB PO SCH (09:33)
[2023-08-16] MEDS: LANTUS PER UNIT CHARGE SQ SCH (09:36)
[2023-08-16] MEDS ORDERED: LEVOTHYROXINE SODIUM 50 MCG TABLET PO SCH (10:30)
[2023-08-16] MEDS: LEVOTHYROXINE SODIUM 50 MCG TABLET PO SCH (12:48)
--- NOTE | 2023-08-16 14:37 | Electrocardiogram Report ---
Test Reason : Blood Pressure : / mmHG Vent. Rate : 105 BPM Atrial Rate : 000 BPM P-R Int : 000 ms QRS Dur : 140 ms QT Int : 382 ms P-R-T Axes : 000 216 017 degrees QTc Int : 504 ms Atrial fibrillation with rapid ventricular response with premature ventricular or aberrantly conducte d complexes Right bundle branch block Abnormal ECG When compared with ECG of 03-JUL-2022 05:38, Vent. rate has increased BY 42 BPM QT has lengthened Confirmed by Sam Hamm ([id number]) on 08/16/2023 2:36:53 PM Referred By: REFERRED SELF Confirmed By:Sam Hamm
[2023-08-16 16:47] LABS: Appearance Urine Clear (Clear); Bacteria Urine Automated Negative (Negative); Bilirubin Urine Negative (Negative); Blood Urine Negative (Negative); Cast Urine Automated 0 /lpf (0-5); Color Urine Yellow; Glucose Urine UA 3+ (Negative); Ketones Urine Negative (Negative); Leukocyte Esterase Urine Negative (Negative); Nitrite Urine Negative (Negative); Protein Urine 1+ (Negative); RBC Urine Automated 0-4 /hpf (0-4); Specific Gravity Urine > 1.045 (1.000-1.030); Urobilinogen Urine Negative (Negative); WBC Urine Automated 0 /hpf (0-5); pH Urine 6.5 (4.5-7.5)
[2023-08-16] MEDS ORDERED: Nursing to Pharmacy Communication SCH (18:30)
[2023-08-16 19:19] LABS: Basophils # (auto) 0.03 K/uL (0.00-0.20); Basophils % (auto) 0.4 %; Eosinophils # (auto) 0.12 K/uL (0.00-0.50); Eosinophils % (auto) 1.7 %; Hematocrit (blood only) 37.1 % (42.0-52.0); Hemoglobin 11.1 g/dl (14.0-18.0); Immature Granulocytes # (auto) 0.04 K/uL (0.01-0.20); Immature Granulocytes % (auto) 0.6 %; Lymphocytes # (auto) 0.72 K/uL (1.20-3.40); Lymphocytes % (auto) 10.1 %; Mean Corpuscular Hemoglobin 24.8 pg (25.0-34.0); Mean Corpuscular Hgb Conc 29.9 g/dL (32.0-36.0); Mean Corpuscular Volume 82.8 fL (80.0-100.0); Mean Platelet Volume 8.4 fL (9.4-12.4); Monocytes # (auto) 0.63 K/uL (0.11-0.59); Monocytes % (auto) 8.8 %; Neutrophils # (auto) 5.59 K/uL (1.40-6.50); Neutrophils % (auto) 78.4 %; Platelet Count 311 K/uL (130-400); RDW Coefficient of Variation 17.5 % (11.5-14.5); RDW Standard Deviation 52.5 fL (36.4-46.3); Red Blood Count 4.48 M/uL (4.70-6.10); White Blood Count 7.13 K/ul (4.8-10.8)
[2023-08-16 19:32] LABS: BUN Creatinine Ratio 11.6 (10-20); Calcium 8.5 mg/dl (8.6-10.3); Creatinine Clr Calc Pharmacy 43.2 ml/min; Est GFR (African American) 58.2 ml/min; Est GFR (Non-African American) 50.2 ml/min; Magnesium 2.2 mg/dl (1.7-2.4); Potassium 4.6 mmol/L (3.5-5.1)
[2023-08-16] MEDS: SIMVASTATIN 40 MG TAB PO SCH (20:31)
[2023-08-16] MEDS: dilTIAZem HCL 120 MG CAPCR PO SCH (20:31)
[2023-08-16] MEDS: ASPIRIN 81 MG ECTAB PO SCH (20:32)
[2023-08-17 06:40] LABS: Basophils # (auto) 0.04 K/uL (0.00-0.20); Basophils % (auto) 0.6 %; Eosinophils # (auto) 0.21 K/uL (0.00-0.50); Eosinophils % (auto) 3.3 %; Hematocrit (blood only) 34.8 % (42.0-52.0); Hemoglobin 10.4 g/dl (14.0-18.0); Immature Granulocytes # (auto) 0.03 K/uL (0.01-0.20); Immature Granulocytes % (auto) 0.5 %; Lymphocytes % (auto) 10.8 %; Mean Corpuscular Hemoglobin 24.8 pg (25.0-34.0); Mean Corpuscular Hgb Conc 29.9 g/dL (32.0-36.0); Mean Corpuscular Volume 83.1 fL (80.0-100.0); Mean Platelet Volume 8.5 fL (9.4-12.4); Monocytes % (auto) 9.3 %; Neutrophils # (auto) 4.88 K/uL (1.40-6.50); Neutrophils % (auto) 75.5 %; Platelet Count 317 K/uL (130-400); RDW Coefficient of Variation 17.5 % (11.5-14.5); RDW Standard Deviation 53.2 fL (36.4-46.3); Red Blood Count 4.19 M/uL (4.70-6.10); White Blood Count 6.46 K/ul (4.8-10.8)
[2023-08-17 06:47] LABS: BUN Creatinine Ratio 12.7 (10-20); Calcium 8.2 mg/dl (8.6-10.3); Creatinine Clr Calc Pharmacy 47.3 ml/min; Est GFR (African American) 64.8 ml/min; Est GFR (Non-African American) 55.9 ml/min; Magnesium 2.1 mg/dl (1.7-2.4); Potassium 4.3 mmol/L (3.5-5.1)
[2023-08-17] MEDS: INSULIN ASPART PER UNIT CHARGE SC SCH ×4 (09:33→20:09)
[2023-08-17] MEDS: PANTOprazole 40 MG TAB PO SCH ×2 (09:35→20:10)
[2023-08-17] MEDS: METOPROLOL SUCC 25MG EXT REL TAB PO SCH (09:35)
[2023-08-17] MEDS: RIVAROXABAN 20 MG TAB PO SCH (09:35)
[2023-08-17] MEDS: LANTUS PER UNIT CHARGE SQ SCH (09:40)
--- NOTE | 2023-08-17 10:16 | Surgery Progress Note ---
Date of Service August 17, 2023 Assessment & Plan (1) SBO (small bowel obstruction): Plan: Seems to be clinically improving. Will obtain a KUB prior to advancing him to full liquids. He is requesting more to eat. We will advance him to full liquids if his KUB looks improved Admission and Anticipated Discharge Date Admission Date: August 16, 2023 Subjective Patient seen. He is feeling better than at admission. He denies any abdominal pain or nausea. He is getting some gas from his colostomy. He is tolerating clear liquids Physical Exam Constitutional: WD/WN, vitals as above no acute distress and not ill appearing Eyes: PERRL, conjunctivae normal, anicteric sclerae EOM intact bilaterally ENMT: external ear and nose normal, oropharynx normal Ears: no hearing impairment Neck: trachea midline, no thyromegaly Respiratory: normal respiratory effort; no respiratory distress and does not use accessory muscles Cardiovascular: Rate/Rhythm: regular rate and regular rhythm Gastrointestinal (Abdomen): Soft. Nontender nondistended. Stoma with gas output Skin: no rashes, warm and dry Psychiatric: Orientation: alert, oriented x 3 and cooperative Results & Data Vital Signs (Past 12 Hours) Vital Signs Temp Pulse Resp BP Pulse Ox O2 Del Method 08/17/23 07:41 36.5 C 66 18 117/70 94 Room Air 08/17/23 04:26 36.5 C 77 16 111/67 95 Room Air 08/16/23 23:33 36.7 C 69 18 109/64 92 Room Air PG Care Time/CCT Total # of Minutes Spent Total Time Spent with Patient: Total time spent is greater than 50% in coordination of care (as documented) at patient's floor/unit and/or counseling patient: Coding Level of Care Code 44838 SUB INP/OBS CARE 2/35MIN Diagnoses SBO (small bowel obstruction) K56.609
--- NOTE | 2023-08-17 11:13 | XRay Report ---
KUB CLINICAL HISTORY: Small bowel obstruction. COMPARISON STUDY: CT of the abdomen and pelvis August 16, 2023. FINDINGS: Right hip arthroplasty is incidentally noted. There are lower abdominal and pelvic surgical clips. Multiple loops of moderately dilated small bowel are similar to prior CT. No evidence for tan e air although sensitivity is diminished on supine exam. IMPRESSION: Findings consistent with a persistent small bowel obstruction. ACT 112: Negative or not required by law. Electronically signed by: Sami Tinajero M.D. 08/17/2023 11:12 AM
[2023-08-17] MEDS: LEVOTHYROXINE SODIUM 50 MCG TABLET PO SCH (12:27)
--- NOTE | 2023-08-17 16:02 | Hospitalist Progress Note ---
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 Patient initially with signs and symptoms of COVID approximately 3 weeks ago. Continue supportive care (3) COVID-19: Plan: Symptoms began approximately 3 weeks ago. Patient is outside the window for treatment or isolation No indication for steroids at this time Continue supportive care (4) Diabetes mellitus, type 2: Plan: Hemoglobin A1c 7.4% on 05/15/2023. This appears to be his baseline. Home medications include empagliflozin 25 mg p.o. daily and glipizide 5 mg p.o. every morning and metformin 500 mg every afternoon These have been held secondary to the small bowel obstruction. For now, continue with Lantus as well as sliding scale insulin with NovoLog (5) Atrial fibrillation: Plan: Permanent, rate controlled with some bradycardia while sleeping Home medications include rivaroxaban 20 mg p.o. every morning for anticoagulation Also continue diltiazem and metoprolol succinate (6) Iron deficiency: Plan: Previously required Venofer IV infusion Check repeat iron labs in the morning Treat with IV iron if needed Also check B12 and folate (7) GERD (gastroesophageal reflux disease): Plan: No acute complaints. Continue with pantoprazole 40 mg p.o. twice daily (8) CVA (cerebral vascular accident): Plan: Patient reports 2 prior strokes. Continue with simvastatin 40 mg p.o. daily, aspirin 81 mg p.o. daily as well as Xarelto Has some expressive aphasia Continue to monitor Plan Disposition-continued stay Admission and Anticipated Discharge Date Admission Date: August 16, 2023 Subjective Patient feeling fairly well, has no abdominal pain or nausea, tolerating clear liquids. Has had a lot of gas and some liquid stool output throughout the day in his colostomy. He is anxious to advance his diet. No other concerns Telemetry with atrial fibrillation with some occasional 3.5-second pauses while sleeping with rates in the 40s to 70s Physical Exam Constitutional: WD/WN, vitals as above Respiratory: normal respiratory effort; no cough Auscultation: + rhonchi (A few scattered); no crackles and no wheezes Cardiovascular: Rate/Rhythm: regular rate and + irregularly irregular Extremities: no edema Gastrointestinal (Abdomen): Inspection/Auscultation: normal bowel sounds; + abdomen abnormal to inspection (Colostomy bag in place with gas and about 100 and mils of liquid stool) and abdomen not distended Percussion/Palpation: + abdomen tender (Mild in right mid abdomen without guarding or rebound) and abdomen soft Psychiatric: A+Ox3, euthymic affect Results & Data Results & Data Vital Signs (Past 12 Hours) Vital Signs Temp Pulse Pulse Resp BP Pulse Ox O2 Del Method 08/17/23 15:31 36.7 C 80 18 119/81 95 Room Air 08/17/23 15:05 69 08/17/23 11:02 36.5 C 73 16 122/69 94 Room Air 08/17/23 08:00 77 08/17/23 08:00 Room Air 08/17/23 07:41 36.5 C 66 18 117/70 94 Room Air 08/17/23 04:26 36.5 C 77 16 111/67 95 Room Air Laboratory Results CBC, BMP, magnesium reviewed PG Care Time/CCT Total # of Minutes Spent Total Time Spent with Patient: Total time spent is greater than 50% in coordination of care (as documented) at patient's floor/unit and/or counseling patient: Coding Level of Care Code 55911 SUB INP/OBS CARE 2/35MIN Diagnoses SBO (small bowel obstruction) K56.609 Cough R05.9 COVID-19 U07.1 Diabetes mellitus, type 2 E11.9 Atrial fibrillation I48.91 Iron deficiency E61.1 GERD (gastroesophageal reflux disease) K21.9 CVA (cerebral vascular accident) I63.9
[2023-08-17] MEDS: dilTIAZem HCL 120 MG CAPCR PO SCH (20:10)
[2023-08-17] MEDS: SIMVASTATIN 40 MG TAB PO SCH (20:10)
[2023-08-17] MEDS: ASPIRIN 81 MG ECTAB PO SCH (20:11)
[2023-08-18 06:11] LABS: Basophils # (auto) 0.03 K/uL (0.00-0.20); Basophils % (auto) 0.5 %; Eosinophils # (auto) 0.13 K/uL (0.00-0.50); Eosinophils % (auto) 2.2 %; Hematocrit (blood only) 36.4 % (42.0-52.0); Hemoglobin 10.8 g/dl (14.0-18.0); Immature Granulocytes # (auto) 0.03 K/uL (0.01-0.20); Immature Granulocytes % (auto) 0.5 %; Lymphocytes # (auto) 0.59 K/uL (1.20-3.40); Lymphocytes % (auto) 9.8 %; Mean Corpuscular Hemoglobin 24.4 pg (25.0-34.0); Mean Corpuscular Hgb Conc 29.7 g/dL (32.0-36.0); Mean Corpuscular Volume 82.4 fL (80.0-100.0); Mean Platelet Volume 8.1 fL (9.4-12.4); Monocytes # (auto) 0.48 K/uL (0.11-0.59); Neutrophils # (auto) 4.76 K/uL (1.40-6.50); Platelet Count 269 K/uL (130-400); RDW Coefficient of Variation 17.2 % (11.5-14.5); RDW Standard Deviation 51.8 fL (36.4-46.3); Red Blood Count 4.42 M/uL (4.70-6.10); White Blood Count 6.02 K/ul (4.8-10.8)
[2023-08-18 06:29] LABS: Calcium 8.3 mg/dl (8.6-10.3); Creatinine Clr Calc Pharmacy 51.2 ml/min; Est GFR (African American) 71.4 ml/min; Est GFR (Non-African American) 61.6 ml/min; Magnesium 2.1 mg/dl (1.7-2.4); Potassium 4.4 mmol/L (3.5-5.1)
[2023-08-18 06:55] LABS: Folate (Folic Acid),Ser orPlas 21.4 ng/ml (>5.38)
[2023-08-18] MEDS ORDERED: IRON SUCROSE 300 MG in SODIUM CHLORIDE 0.9% 250 ML IV ONE (09:08)
--- NOTE | 2023-08-18 09:13 | Surgery Progress Note ---
Date of Service August 18, 2023 Assessment & Plan (1) SBO (small bowel obstruction): Plan: His x-rays still appear to be partial small bowel obstruction however clinically he is much improved. I think would be okay to go ahead and advance him to full liquids. I would not feel comfortable sending him home yet. If he does okay today and tonight with full liquids we could try low fiber diet tomorrow with discharge expectations. Admission and Anticipated Discharge Date Admission Date: August 16, 2023 Subjective Patient seen. He is feeling much better than his admission. He has no nausea and really no pain. He has only had clear liquids and would like to try more he continues to pass gas and has had some stool in the bag Physical Exam Physical Exam: Alert no acute distress The abdomen is soft nontender distended nontender. Stoma looks good with 1 formed stool in the bag Results & Data Vital Signs (Past 12 Hours) Vital Signs Temp Pulse Pulse Resp BP Pulse Ox O2 Del Method 08/18/23 08:15 36.9 C 69 16 134/79 94 Room Air 08/18/23 07:47 87 08/18/23 03:14 36.5 C 76 18 124/78 96 Room Air 08/17/23 23:30 36.4 C L 84 18 131/80 93 Room Air 08/17/23 22:24 89 PG Care Time/CCT Total # of Minutes Spent Total Time Spent with Patient: Total time spent is greater than 50% in coordination of care (as documented) at patient's floor/unit and/or counseling patient: Coding Level of Care Code 07497 SUB INP/OBS CARE 2/35MIN Diagnoses SBO (small bowel obstruction) K56.609
[2023-08-18] MEDS: RIVAROXABAN 20 MG TAB PO SCH (09:21)
[2023-08-18] MEDS: PANTOprazole 40 MG TAB PO SCH ×2 (09:21→20:43)
[2023-08-18] MEDS: METOPROLOL SUCC 25MG EXT REL TAB PO SCH (09:21)
[2023-08-18] MEDS: INSULIN ASPART PER UNIT CHARGE SC SCH ×4 (09:31→20:41)
--- NOTE | 2023-08-18 09:31 | XRay Report ---
KUB HISTORY: Generalized abdominal pain f/u SBO COMPARISON: KUB August 17, 2023 FINDINGS: There is persistent small bowel distention which is similar to slightly improved from the p rior study with dilated air-filled loops measuring up to 4.5 centers. Surgical clips noted within the lower abdomen and pelvis. No renal calculi. No ureteral calculi. No pneumoperitoneum or pneumatosis . Right hip arthroplasty. Cardiomegaly. No fracture. IMPRESSION: Persistent small bowel obstruction with mildly improved small bowel dilation. ACT 112: Negative or not required by law. The above report was generated using voice recognition software. It may contain grammatical, syntax o r spelling errors. Electronically signed by: Frederic Rodriguez M.D. 08/18/2023 9:29 AM
[2023-08-18] MEDS: LANTUS PER UNIT CHARGE SQ SCH (09:43)
--- NOTE | 2023-08-18 10:05 | Hospitalist Progress Note ---
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 No surgery for RAYMUNDO unless has increasing frequency of SBOs -Follow CBC, BMP and magnesium -Pain control as needed (2) Cough: Plan: Nonproductive. Patient initially with signs and symptoms of COVID approximately 3 weeks ago. Continue supportive care (3) COVID-19: Plan: Symptoms began approximately 3 weeks ago. Patient is outside the window for treatment or isolation No indication for steroids at this time Continue supportive care (4) Diabetes mellitus, type 2: Plan: Hemoglobin A1c 7.4% on 05/15/2023. This appears to be his baseline. Home medications include empagliflozin 25 mg p.o. daily and glipizide 5 mg p.o. every morning and metformin 500 mg every afternoon These have been held secondary to the small bowel obstruction. For now, continue with Lantus as well as sliding scale insulin with NovoLog (5) Atrial fibrillation: Plan: Permanent, rate controlled with some bradycardia while sleeping Home medications include rivaroxaban 20 mg p.o. every morning for anticoagulation Also continue diltiazem and metoprolol succinate (6) Iron deficiency: Plan: Previously required Venofer IV infusion iron labs show ferritin only 24 and trans sat 13% Seen by GI recently and deferred on scopes as per patient preference could be nutritional deficiency-consult Makeup Artist Treat with IV iron today B12 and folate normal, TSH normal in 03/2023 (7) GERD (gastroesophageal reflux disease): Plan: No acute complaints. Continue with pantoprazole 40 mg p.o. twice daily (8) CVA (cerebral vascular accident): Plan: Patient reports 2 prior strokes. Continue with simvastatin 40 mg p.o. daily, aspirin 81 mg p.o. daily as well as Xarelto Has some chronic expressive aphasia Continue to monitor Plan Disposition-continued stay, but improving, possible dc to home tomorrow Admission and Anticipated Discharge Date Admission Date: August 16, 2023 Anticipated date of discharge: 08/19/23 Subjective Feeling well. Passing gas and now solid stool in colostomy bag. No other issues, tolerating full liquids for breakfast Tele Afib rates mostly 70-80s, PVCs Physical Exam Constitutional: WD/WN, vitals as above Respiratory: normal respiratory effort; no cough Auscultation: + rhonchi (A few scattered); no crackles and no wheezes Cardiovascular: Rate/Rhythm: regular rate and + irregularly irregular Extremities: no edema Gastrointestinal (Abdomen): Inspection/Auscultation: normal bowel sounds; + abdomen abnormal to inspection (Colostomy bag in place with gas and solid stool) and abdomen not distended Percussion/Palpation: abdomen soft; abdomen nontender Psychiatric: A+Ox3, euthymic affect Results & Data Results & Data Vital Signs (Past 12 Hours) Vital Signs Temp Pulse Pulse Resp BP Pulse Ox O2 Del Method 08/18/23 08:15 36.9 C 69 16 134/79 94 Room Air 08/18/23 07:47 87 08/18/23 03:14 36.5 C 76 18 124/78 96 Room Air 08/17/23 23:30 36.4 C L 84 18 131/80 93 Room Air 08/17/23 22:24 89 Laboratory Results CBC, Fe studies, BMP reviewed PG Care Time/CCT Total # of Minutes Spent Total Time Spent with Patient: Total time spent is greater than 50% in coordination of care (as documented) at patient's floor/unit and/or counseling patient: Coding Level of Care Code 54850 SUB INP/OBS CARE 2/35MIN Diagnoses SBO (small bowel obstruction) K56.609 Cough R05.9 COVID-19 U07.1 Diabetes mellitus, type 2 E11.9 Atrial fibrillation I48.91 Iron deficiency E61.1 GERD (gastroesophageal reflux disease) K21.9 CVA (cerebral vascular accident) I63.9
[2023-08-18] MEDS: LEVOTHYROXINE SODIUM 50 MCG TABLET PO SCH (12:50)
[2023-08-18] MEDS: ASPIRIN 81 MG ECTAB PO SCH (20:42)
[2023-08-18] MEDS: dilTIAZem HCL 120 MG CAPCR PO SCH (20:42)
[2023-08-18] MEDS: SIMVASTATIN 40 MG TAB PO SCH (20:43)
[2023-08-19 06:04] LABS: Basophils # (auto) 0.04 K/uL (0.00-0.20); Basophils % (auto) 0.7 %; Eosinophils # (auto) 0.13 K/uL (0.00-0.50); Eosinophils % (auto) 2.4 %; Hematocrit (blood only) 35.4 % (42.0-52.0); Hemoglobin 11.1 g/dl (14.0-18.0); Immature Granulocytes # (auto) 0.03 K/uL (0.01-0.20); Immature Granulocytes % (auto) 0.5 %; Lymphocytes # (auto) 0.63 K/uL (1.20-3.40); Lymphocytes % (auto) 11.5 %; Mean Corpuscular Hgb Conc 31.4 g/dL (32.0-36.0); Mean Corpuscular Volume 79.7 fL (80.0-100.0); Mean Platelet Volume 8.2 fL (9.4-12.4); Monocytes # (auto) 0.67 K/uL (0.11-0.59); Monocytes % (auto) 12.2 %; Neutrophils # (auto) 3.99 K/uL (1.40-6.50); Neutrophils % (auto) 72.7 %; Platelet Count 270 K/uL (130-400); RDW Coefficient of Variation 17.1 % (11.5-14.5); RDW Standard Deviation 48.6 fL (36.4-46.3); Red Blood Count 4.44 M/uL (4.70-6.10); White Blood Count 5.49 K/ul (4.8-10.8)
[2023-08-19 06:20] LABS: BUN Creatinine Ratio 9.4 (10-20); Calcium 8.8 mg/dl (8.6-10.3); Creatinine Clr Calc Pharmacy 52.6 ml/min; Est GFR (African American) 73.8 ml/min; Est GFR (Non-African American) 63.7 ml/min; Magnesium 2.1 mg/dl (1.7-2.4); Phosphorus 3.3 mg/dl (2.5-4.9); Potassium 4.3 mmol/L (3.5-5.1)
[2023-08-19] MEDS: PANTOprazole 40 MG TAB PO SCH (08:14)
[2023-08-19] MEDS: METOPROLOL SUCC 25MG EXT REL TAB PO SCH (08:14)
[2023-08-19] MEDS: RIVAROXABAN 20 MG TAB PO SCH (08:14)
--- NOTE | 2023-08-19 08:20 | Surgery Progress Note ---
Date of Service August 19, 2023 Assessment & Plan (1) SBO (small bowel obstruction): Plan: resolving/resolved will advance diet ok for d/c from my standpoint Admission and Anticipated Discharge Date Admission Date: August 16, 2023 Subjective doing well. no pain or nausea. stoma now with normal output Physical Exam Physical Exam: alert. nad abd: soft. nt. nd. stoma with large amount of stool Results & Data Vital Signs (Past 12 Hours) Vital Signs Temp Pulse Pulse Pulse Resp BP Pulse Ox 08/19/23 07:42 83 08/19/23 07:40 36.6 C 78 18 123/78 95 08/19/23 07:16 08/19/23 03:22 36.2 C L 76 18 119/72 95 08/18/23 23:13 36.5 C 87 18 150/70 H 94 08/18/23 22:03 88 08/18/23 20:36 36.5 C 66 18 118/73 94 O2 Del Method 08/19/23 07:42 08/19/23 07:40 Room Air 08/19/23 07:16 Room Air 08/19/23 03:22 Room Air 08/18/23 23:13 Room Air 08/18/23 22:03 08/18/23 20:36 Room Air PG Care Time/CCT Total # of Minutes Spent Total Time Spent with Patient: Total time spent is greater than 50% in coordination of care (as documented) at patient's floor/unit and/or counseling patient: Coding Level of Care Code 20983 SUB INP/OBS CARE 25MIN Diagnoses SBO (small bowel obstruction) K56.609
[2023-08-19] MEDS: LANTUS PER UNIT CHARGE SQ SCH (09:01)
[2023-08-19] MEDS: INSULIN ASPART PER UNIT CHARGE SC SCH ×2 (09:01→12:59)
[2023-08-19] MEDS: LEVOTHYROXINE SODIUM 50 MCG TABLET PO SCH (13:01)
--- NOTE | 2023-08-19 13:43 | Discharge Summary ---
Discharge Summary Date of Service August 19, 2023 Notes For Next Care Provider Medication Changes From Visit None Admission HPI Per Admitting Provider Amilcar Morin is an 87yo male with multiple medical comorbidities presenting with abdominal pain, concern for recurrence of SBO. He has a history of prior CVA, AF on Rivaroxaban anticoagulation, prior SBO. Patient with colostomy in place. Around 13:00 he had an episode of diarrhea followed by passage of a small amount of normal stool. He had dinner around 17:00 consisting of cauliflower soup and some zucchini cake. Around 21:00 he developed severe right sided abdominal pain with some nausea. Pain felt similar to his prior SBOs. He has not had any output in his ostomy since then. Additionally, patient with ongoing cough. He had Covid-19 3 weeks ago. He feels that he is recovering but has a persistent cough, now more moist sounding. He denies shortness of breath, chest pain, fever, chills or sweats. 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 at one point requiring ex lap and RAYMUNDO Clinically much improved despite the fact that repeated KUB remains with distended loops of bowel although slightly improved on 08/18 No NG tube needed Question if he has some degree of chronic ileus explaining his distended bowels on x-ray despite clinical improvement -tolerating low fber diet, has solid stool and gas in colostomy bag -stable for dc to home -continue low fiber diet, drink plenty of water throughout the day, and ambulate frequently to prevent rcurrence -f/u with Surgery as outpt to get established in case needs RAYMUNDO if SBOs become more frequent (2) Cough: Nonproductive.Mostly resolved, residual from COVID a few weeks ago (3) COVID-19: Symptoms began approximately 3 weeks ago. Patient is outside the window for treatment or isolation No indication for steroids at this time (4) Diabetes mellitus, type 2: Hemoglobin A1c 7.4% on 05/15/2023. This appears to be his baseline. Home medications include empagliflozin 25 mg p.o. daily and glipizide 5 mg p.o. every morning and metformin 500 mg every afternoon-resume on discharge treated with basal and bolus insulin while here (5) Atrial fibrillation: Permanent, rate controlled with some bradycardia while sleeping, occasionally Home medications include rivaroxaban 20 mg p.o. every morning for anticoagulation Also continue diltiazem and metoprolol succinate (6) Iron deficiency: Previously required Venofer IV infusion iron labs show ferritin only 24 and trans sat 13% Seen by GI recently and deferred on scopes as per patient preference could be nutritional deficiency-consult Fire Control Technician Treated here with one dose of IV Venofer 300mg and has an appt he thinks for outpt IV iron infusions coming up soon B12 and folate normal, TSH normal in 03/2023 (7) GERD (gastroesophageal reflux disease): No acute complaints. Continue with pantoprazole 40 mg p.o. twice daily (8) CVA (cerebral vascular accident): Patient reports 2 prior strokes. Continue with simvastatin 40 mg p.o. daily, aspirin 81 mg p.o. daily as well as Xarelto Has some chronic expressive aphasia Plan Disposition-much improved, stable for discharge to home, ambulates independently with cane discussed care with son, Noam, at bedside Discharge Exam Constitutional WD/WN, vitals as above Respiratory normal respiratory effort; no respiratory distress and no cough Auscultation: no crackles, no rhonchi and no wheezes Cardiovascular Rate/Rhythm: regular rate and + irregularly irregular Extremities: no edema Gastrointestinal (Abdomen) Inspection/Auscultation: normal bowel sounds; + abdomen abnormal to inspection (Colostomy bag in place with gas and solid stool) and abdomen not distended Percussion/Palpation: abdomen soft; abdomen nontender Psychiatric A+Ox3, euthymic affect Updated Medication List Medication Instructions Recorded Confirmed Type mecobalamin (vitamin B12) 1,000 1,000 mcg PO QPM 07/23/20 08/16/23 History mcg chewable tablet cholecalciferol (vitamin D3) 50 50 mcg PO QAM 12/10/20 08/16/23 History mcg (2,000 unit) capsule [id number] 300 mcg-K 60 1 tab PO QAM 12/10/20 08/16/23 History mcg-lycop 600 mcg-lutein 300 mcg tablet (Centrum Silver Men) aspirin 81 mg tablet,delayed 81 mg PO DAILY #30 tabs 05/29/22 08/16/23 Rx release (Adult Low Dose Aspirin) rivaroxaban 20 mg tablet (Xarelto) 20 mg PO QAM #90 tabs 11/30/22 08/16/23 Rx metformin 500 mg tablet,extended 500 mg PO QPM #90 tabs 02/12/23 08/16/23 Rx release 24 hr metoprolol succinate 50 mg 75 mg (1.5 x 50 mg) PO DAILY #120 02/17/23 08/16/23 Rx tablet,extended release 24 hr tabs simvastatin 40 mg tablet 40 mg PO PM #90 tabs 03/25/23 08/16/23 Rx diltiazem HCl 120 mg 120 mg PO DAILY #90 caps 04/05/23 08/16/23 Rx capsule,extended release 24 hr (Cartia XT) levothyroxine 50 mcg tablet 50 mcg PO . ABOUT LUNCHTIME #90 08/05/23 08/16/23 Rx tabs empagliflozin 25 mg tablet 25 mg PO DAILY #90 tabs 08/13/23 08/16/23 Rx glipizide 5 mg tablet, extended 5 mg PO QAM 08/16/23 08/16/23 History release 24 hr pantoprazole 40 mg tablet,delayed 40 mg PO BID 08/16/23 08/16/23 History release Hospital Stay Data Consultations 08/16/23 03:17 ED Decision to Admit Stat 08/17/23 06:25 Consult General Surgery Routine Diagnostic Imagining Performed 08/16/23 00:27 CT abd pelvis IV con only Stat Pending Results Patient Have Any Pending Studies at Discharge: No Discharge Instructions Given to Patient (Per Discharging Provider) Please make sure to drink plenty of water at home and remain on a low fiber diet. Walking frequently can also help to keep your bowels from blocking. Follow up with Dr. Verdin in his office within 2-3 weeks. You were given a dose of IV iron while you were here, but should keep your previously scheduled visit for an iron infusion later this month as well. It was a pleasure taking care of you and I'm glad you're doing well! Analilia Ibrahim M.D. Total Time Total Time Spent Total Time Spent (In Minutes): 35 min Coding Level of Care Code 13764 INP/OBS DISCH >30 MIN Diagnoses SBO (small bowel obstruction) K56.609 Cough R05.9 COVID-19 U07.1 Diabetes mellitus, type 2 E11.9 Atrial fibrillation I48.91 Iron deficiency E61.1 GERD (gastroesophageal reflux disease) K21.9 CVA (cerebral vascular accident) I63.9
== END 2023-08-19 14:04 | disposition home or self-care (01) | DRG 388 ==
LOC: ED 00:19 → EDINP 04:16 → SUATTDRO 04:16 → 2W 06:43

== ENCOUNTER 2024-04-14 23:46 | Inpatient (IN) ==
--- OUTSIDE RECORDS SUMMARY | 2024-04-14 23:51 | External Medical Summary | Continuity of Care Document ---
Author Name Unknown Organization [facility] [address] Address [address] [id number] Care Team Providers Care Floor Waxer Name Role Phone VidyajodiAndresRomulo Obinna Primary Care Physician [phone] Encounter [facility] [place] [id number] Date(s): 03/06/24 - 03/06/24 [facility] [address] [facility] [address] [place], [place] [id number] Encounter Diagnosis Seborrheic keratoses(Discharge Diagnosis) - 03/06/24 Actinic elastosis(Discharge Diagnosis) - 03/06/24 Encounter for follow-up examination after completed treatment for cancer (Discharge Diagnosis) - 03/06/24 History of basal cell carcinoma of skin(Discharge Diagnosis) - 03/06/24 Discharge Disposition: Home or Self Care Attending Physician: MD Moreno Sara B Referring Physician: MD Moreno Sara B Allergies, Adverse Reactions, Alerts Substance Criticality Severity Reaction Reaction Severity Status HYDROmorphone Hydrochloride hallucinations Active Allergy Not found in Search 1 Active LORazepam hallucinations Activ e 1Old tetneus vaccine Assessment and Plan Extracted from: Title:Dermatology Office Visit Note Author:Clint ozuna MD, Sara B Date:03/06/24 1.Seborrheic keratoses Chronic, within normal limits 2.Actinic elastosis Chronic, not at goal, continue solar protection and call with any new or changing lesions 3.Encounter for follow-up examination after completed treatment for cancer Scars clear call with any new concerns 4.History of basal cell carcinoma of skin Warning signs of skin cancer were reviewed. Sun protection reviewed. Follow-up in 12 months, sooner for any changing or growing lesions or acute concerns. I also recommended monthly self skin exams Medications dilTIAZem Start: 03/15/17 9:32:00 AM EDT, 120 mg =, PO, Daily Start Date: 03/15/17 Status: Ordered famotidine Start: 03/02/23 11:08:00 AM EDT Start Date: 03/02/23 Status: Ordered gabapentin 300 mg oral capsule Start: 04/13/22 11:16:00 AM EDT, 1 cap, PO, Daily, Disp# 90 cap, Take one capsule at night x 3 days,then one capsule twice a day x3 days, then one capsule three times a day, Pharmacy: [facility]/pharmacy #[id number] Start Date: 04/13/22 Status: Ordered glipiZIDE 5 mg oral tablet Start: 12/16/15 9:15:00 AM EDT, 1.5 tab, PO, Daily, 7.5mg total daily Start Date: 12/16/15 Status: Ordered Jardiance 10 mg oral tablet TAKE 1 TABLET BY MOUTH EVERY DAY Start Date: 04/13/22 Status: Ordered levothyroxine 25 mcg (0.025 mg) oral capsule Start: 12/09/20 8:03:00 AM EDT Start Date: 12/09/20 Status: Ordered Lidoderm 5% topical patch Start: 04/14/22 10:19:00 AM EDT, 1 patch, topical, Daily, Disp# 7 patch, Refills: 3, Pharmacy: [facility]/pharmacy #[id number] Start Date: 04/14/22 Stop Date: 05/12/22 Status: Ordered metFORMIN Start: 08/03/18 8:49:00 AM EST, 500 mg =, PO, Daily Start Date: 08/03/18 Status: Ordered metoprolol extended release Start: 03/03/13 11:27:00 AM EDT, 75 mg =, PO, Daily Start Date: 03/03/13 Status: Ordered multivitamin Start: 12/09/20 8:04:00 AM EDT, 1 tab, PO, Daily Start Date: 12/09/20 Status: Ordered Neurontin 100 mg oral capsule Start: 04/14/22 10:18:00 AM EDT, 1 cap, PO, tid, Disp# 27 cap, Refills: 0, After 3 days then take 2 100mg capsules 3 times a day for 3 days then begin 300mgRx, Pharmacy: [facility]/pharmacy #[id number] Start Date: 04/14/22 Stop Date: 04/17/22 Status: Ordered pantoprazole 40 mg oral delayed release tablet TAKE 1 TABLET BY MOUTH EVERY DAY Start Date: 12/01/21 Status: Ordered simvastatin Start: 03/03/13 11:28:00 AM EDT, 40 mg =, PO, qhs Start Date: 03/03/13 Status: Ordered Vitamin B12 Start: 07/09/20 9:20:00 AM EST Start Date: 07/09/20 Status: Ordered Vitamin D3 Start: 12/09/20 8:04:00 AM EDT Start Date: 12/09/20 Status: Ordered Xarelto 20 mg oral tablet Start: 03/15/17 9:32:00 AM EDT, 1 tab, PO, qPM Start Date: 03/15/17 Status: Ordered Mental Status 03/06/24 Barriers to Learning one year None evide nt Mandatory Health Literacy Documentation Yes Health Literacy Communication Barriers N ever Primary Language Uzbek Problem List Condition Confirmation Course Effective Dates Status H ealth Status Informant A FIB Confirmed Active Cellulitis of right forearm Confirmed Active Stroke 1 Confirmed 05/28/22 Active Changing skin lesion Confirmed Active Colon cancer Confirmed 1978 Active Sciatica Confirmed 02/20/05 Active Carotid artery dissection Confirmed Active DJD (degenerative joint disease) 2 Confirmed Active Right rotator cuff tear Confirmed Active S/P hip replacement Confirmed Active Encounter for follow-up examination after completed treatment for cancer Confirmed Active Hiatal hernia Confirmed Active History of basal cell carcinoma of skin Confirmed Active Bowel obstruction Confirmed 06/28/22 Active Left ankle injury Confirmed Active Meralgia paresthetica of right side Confirmed Active Actinic keratoses Confirmed Active Onychomycosis Confirmed Active Osteoarthritis of right wrist Confirmed Active Forearm pain Confirmed Active Left wrist pain Confirmed Active Postherpetic neuralgia Confirmed Active Right hand pain 3 Confirmed Active Seborrheic keratoses Confirmed Active Solar purpura Confirmed Active Right shoulder pain Confirmed Active Actinic elastosis Confirmed Active Right elbow tendinitis Confirmed Active Right shoulder tendinitis Confirmed Active 1Another stroke 12-29-22 2Right hip 3along with wrist Diagnosis Diagnosis Type Effective Dates Health Status Clinical Service Informant History of basal cell carcinoma of skin Discharge Diagnosis 03/06/24 Actinic elastosis Discharge Diagnosis 03/06/24 Encounter for follow-up examination after completed treatment for cancer Discharge Diagnosis 03/06/24 Seborrheic keratoses Discharge Diagnosis 03/06/24 Procedures Procedure Date Related Diagnosis Body Site Status Mohs' micrographic surgery 06/08/23 Completed Bowel 1 05/14/23 Completed Shave biopsy 2 03/02/23 Completed Stroke 12/18/22 Completed Mohs micrographic surgery 07/28/21 Completed Shave biopsy and cauterization of skin 07/14/21 Completed H/O: surgery 2016 Completed Hernia 1999 Completed Hip replacement 1996 Complet ed Radiation therapy care 1980 Co mpleted Colon 5 1978 Completed Tonsillectomy 1950 Completed Cataract Completed H/O: vasectomy Completed Mohs surgery 6 Completed 1blockage 2central chin 3stomach blockage 4Right total 5CA 6around 2013 Social History Social History Type Response Smoking Status Never smoked cigaret melonie Sex Male Sex Representation Male (finding) Dermatology Outpatient Note * MD Tiffanie, Julieta Melton: PERFORM Event Display: Dermatology Outpt Note Authored Date: Chief Complaint skin check- no concerns History of Present Illness The patient is a pleasant 87-year-old male here for skin check. Spot in david today. 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 Also basal cells in the past while he was seeing Dr. Simons on the left forearm, the right nares, and the right dorsal hand in 2014. He also had a bowenoid [place] treated on his right wrist. Spent 5 years in [place] when he was younger. 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 Very careful with the sun protection, especially while golfing, wears long sleeves and hat. [1] Physical Exam Gen: Well appearing patient, no acute distress. Alert and oriented x3. Good mood. Waist up skin exam completed per pt request of face, ears, scalp, hair, lips, neck, chest, back, abdomen, upper extremitites bilaterally including hands and fingers plus legs from upper thighs to ankles.Patient has many seborrheic keratoses. He has actinic elastosis on his face and scalp. Scars are clear without any evidence of recurrent skin cancer. Assessment/Plan 1.Seborrheic keratoses Chronic, within normal limits 2.Actinic elastosis Chronic, not at goal, continue solar protection and call with any new or changing lesions 3.Encounter for follow-up examination after completed treatment for cancer Scars clear call with any new concerns 4.History of basal cell carcinoma of skin Warning signs of skin cancer were reviewed. Sun protection reviewed. Follow-up in 12 months,sooner for any changing or growing lesions or acute concerns. I also recommended monthly self skin exams Problem List/Past Medical History Ongoing A FIB Actinic elastosis Actinic keratoses Bowel obstruction Carotid artery dissection Cellulitis of right forearm Changing skin lesion Colon cancer DJD (degenerative joint disease) Encounter for follow-up examination after completed treatment for cancer Forearm pain Hiatal hernia History of basal cell carcinoma of skin Left ankle injury Left wrist pain Meralgia paresthetica of right side Onychomycosis Osteoarthritis of right wrist Postherpetic neuralgia Right elbow tendinitis Right hand pain Right rotator cuff tear Right shoulder pain Right shoulder tendinitis S/P hip replacement Sciatica Seborrheic keratoses Solar purpura Stroke Procedure/Surgical History Mohs' micrographic surgery| Service Date: 06/08/2023owel| Service Date: 05/14/2023Shave biopsy| Service Date: 03/02/2023Stroke| Service Date: 12/18/2022Mohs micrographic surgery| Service Date: 07/28/2021have biopsy and cauterization of skin| Service Date: 07/14/2021H/O: surgery| Service Date: 2016Hernia| Service Date: 1999Hip replacement| Service Date: 1996Radiation therapy care| Service Date: lon| Service Date: 1978Tonsillectomy| [facility] Medications cholecalciferol(Vitamin D3) cyanocobalamin(Vitamin B12) dilTIAZem, 120 mg, PO, Daily empagliflozin(Jardiance 10 mg oral tablet) famotidine gabapentin(gabapentin 300 mg oral capsule), 300 mg= 1 cap, PO, Daily gabapentin(Neurontin 100 mg oral capsule), 100 mg= 1 cap, PO, tid glipiZIDE(glipiZIDE 5 mg oral tablet), 7.5 mg= 1.5 tab, PO, Daily levothyroxine(levothyroxine 25 mcg (0.025 mg) oral capsule) lidocaine topical(Lidoderm 5% topical patch), 1 patch, topical, Daily, 3 refills metFORMIN, 500 mg, PO, Daily metoprolol(metoprolol extended release), 75 mg, PO, Daily multivitamin, 1 tab, PO, Daily pantoprazole(pantoprazole 40 mg oral delayed release tablet) rivaroxaban(Xarelto 20 mg oral tablet), 20 mg= 1 tab, PO, qPM simvastatin, 40 mg, PO, qhs Allergies Allergy Not found in Search HYDROmorphone Hydrochloridehallucinations LORazepamhallucinations Social History Smoking Status Never smoked cigarettes Family History Family history is unknown [1]Office Visit Note; MD Tiffanie, Julieta Melton 03/02/2023 11:57 EDT Electronic Signature on File Electronically Reviewed/Signed by: Julieta Moreno MD Author Signature Dt/Tm:03/06/2024 10:12 AM Department of Dermatology [facility] Patient Care team information Care Team Personnel Name: DO Barker Brian R Position: Referring Member Role: Primary Care Provider Address: [facility] [address] [place] [address] [place] Care Team Related Persons Name: ISRAEL RAMACHANDRAN"
--- OUTSIDE RECORDS SUMMARY | 2024-04-14 23:51 | External Medical Summary | Continuity of Care Document ---
Author Name Unknown Organization [facility] [address] Address [address] [phone] Care Team Providers Care Buffing Line Set Up Worker Name Role Phone VidyajodiAndresRomulo Obinna Primary Care Physician [phone] Encounter [facility] [place] [id number] Date(s): 03/06/24 - 03/06/24 [facility] [address] [facility] 2 [place], [place] [phone] Encounter Diagnosis Seborrheic keratoses(Discharge Diagnosis) - 03/06/24 [...] one capsule three times a day, Pharmacy: [facility]/pharmacy #[id number] Start Date: 04/13/22 Status: [...] Daily, Disp# 7 patch, Refills: 3, Pharmacy: [facility]/pharmacy #[id number] Start Date: 04/14/22 Stop [...] for 3 days then begin 300mgRx, Pharmacy: [facility]/pharmacy #[id number] Start Date: 04/14/22 Stop [...] Literacy Communication Barriers N ever Primary Language Swedish Problem List Condition Confirmation Course Effective Dates [...] he was younger. 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 Very careful with the sun protection, [...] Date: lon| Service Date: 1978Tonsillectomy| [facility] Medications cholecalciferol(Vitamin D3) cyanocobalamin(Vitamin B12) [...] Referring Member Role: Primary Care Provider Address: [facility] [address] [place] [address] [place] Care Team Related Persons Name: ISRAEL RAMACHANDRAN"
[2024-04-15 00:38] LABS: Basophils # (auto) 0.05 K/uL (0.00-0.20); Basophils % (auto) 0.5 %; Eosinophils # (auto) 0.27 K/uL (0.00-0.50); Eosinophils % (auto) 2.9 %; Hematocrit (blood only) 46.1 % (42.0-52.0); Hemoglobin 15.5 g/dl (14.0-18.0); Immature Granulocytes # (auto) 0.06 K/uL (0.01-0.20); Immature Granulocytes % (auto) 0.6 %; Lymphocytes # (auto) 1.28 K/uL (1.20-3.40); Lymphocytes % (auto) 13.7 %; Mean Corpuscular Hemoglobin 30.1 pg (25.0-34.0); Mean Corpuscular Hgb Conc 33.6 g/dL (32.0-36.0); Mean Corpuscular Volume 89.5 fL (80.0-100.0); Mean Platelet Volume 9.1 fL (9.4-12.4); Monocytes # (auto) 0.86 K/uL (0.11-0.59); Monocytes % (auto) 9.2 %; Neutrophils # (auto) 6.85 K/uL (1.40-6.50); Neutrophils % (auto) 73.1 %; Platelet Count 227 K/uL (130-400); RDW Coefficient of Variation 13.6 % (11.5-14.5); RDW Standard Deviation 44.3 fL (36.4-46.3); Red Blood Count 5.15 M/uL (4.70-6.10); White Blood Count 9.37 K/ul (4.8-10.8)
--- NOTE | 2024-04-15 00:43 | Emergency Department Note ---
Impression & Plan Abdominal pain, SBO (small bowel obstruction) ED Provider Note ED Provider Note NAME: YOEL RAMACHANDRAN AGE:88 SEX: Male : 1935 ARRIVES VIA: Private vehicle INFORMANT: Patient ED PROVIDER(s): Heather Solitario DO CHIEF COMPLAINT: Abdominal pain, concern for SBO HPI: This is an 88-year-old male presents emergency room due to concern for diarrhea and abdominal pain, and decreased output from his colostomy today. Patient states the symptoms are similar to when he has had small bowel obstructions. Patient states he first underwent resection following diagnosis of colon cancer 40 years ago. He states after having surgery secondary to his severe SBO for a lysis of adhesions and years ago he had several recurrent small bowel obstructions, however typically these were able to be conservatively managed in the hospital. Patient states his last bowel obstruction was in August and he felt he had been doing well these last many months. No recent change in diet or medications. No known sick contacts. Patient states yesterday he felt unwell and had a bout of diarrhea. He denies noticing any blood. He states today he began noticing increasing abdominal pain and noticed he had decreased flatus. He states these symptoms are similar to when he has had a bowel obstruction previously. PAST MEDICAL HISTORY:See Below PAST SURGICAL HISTORY:See Below FAMILY HISTORY:See Below SOCIAL HISTORY:See Below HOME MEDICATIONS:See Below ALLERGIES:See Below VITALS:See Below PHYSICAL EXAMINATION: GENERAL: alert, well appearing, well nourished, no distress, non-toxic EYE EXAM: normal conjunctiva, PERRL and EOM's grossly intact OROPHARYNX: no exudate, no erythema, lips, buccal mucosa, and tongue normal and mucous membranes are moist NECK: supple, no nuchal rigidity, no adenopathy, non-tender LUNGS: Clear to auscultation. Normal chest wall mechanics, no w/r/r HEART: no murmurs, S1 normal and S2 normal ABDOMEN: abdomen soft, generalized tenderness with palpation, decreased bowel sounds, colostomy noted left mid abdomen, intestinal mucosa well-appearing and not friable, parastomal hernia noted, large vertical well-healed midline incision consistent with prior surgery, no masses, no rebound or guarding. BACK: Back is symmetrical on inspection and there is no deformity, no midline tenderness, no CVA tenderness. SKIN: no rashes, petechiae, orbruising UPPER EXTREMITIES: upper extremities are grossly normal. FROM, nml pulses b/l. LOWER EXTREMITIES: No pitting edema. FROM, nml pulses b/l. NEURO EXAM: Normal sensorium, cranial nerves II-XII grossly intact, normal speech, no facial droop,nogross weakness of arms, no gross weakness of legs. Gross sensation intact. No ataxia. Vital Signs: reviewed and remarkable Differential Diagnosis: SBO, closed-loop obstruction, GI bleed, viral syndrome, medication ADR, dehydration, NICOLLE, chronic ileus, mass, anastomotic leak, cellulitis, as well as others were considered MEDICAL DECISION MAKING: This is an 88-year-old male with significant past surgical history and multiple prior small bowel obstructions who presents due to concern for possible recurrent bowel obstruction. He was afebrile and vital signs stable. Labs drawn and sent, IV established, patient monitored on telemetry. He was started on IV fluids, and sent for CT imaging. He was initially given IV Tylenol for pain. He was offered additional meds however he declined. He had no other new or evolving symptoms. CT suggestive of early small bowel obstruction without transition point. Case discussed with hospitalist team for additional evaluation and management. Consultation(s): 0400: Discussed with CHRIS Horn resident, for additional evaluation and mgmt. ER Treatment Provided: See below Diagnostics Interpreted By Me: -Cardiac Monitoring: An order was placed for continuous cardiac monitoring. The monitor shows a rate of 55 with sinus bradycardia rhythm. -Laboratory studies: As stated above and show below. -Imaging studies: ct a/p: Dilated small bowel, no perf Triage Nursing Note Reviewed Prior/Outside Records Reviewed Past Med/Surg History Problem List (Updated 04/15/24 @ 06:52 by Heather Solitario DO) SBO (small bowel obstruction) (Acute) Abdominal pain (Acute) Balance disorder History of small bowel obstruction Hypothyroidism CVA (cerebral vascular accident) On anticoagulant therapy xarelto daily Diabetes mellitus, type 2 Hiatal hernia Hypertension Hyperlipidemia Classic migraine Atrial fibrillation Iron deficiency Mitral regurgitation Gout Memory deficits GERD (gastroesophageal reflux disease) Expressive aphasia Abdominal pain (Acute) Medical History (Updated 04/15/24 @ 06:52 by Heather Solitario DO) Cerebellar hemorrhage COVID-19 SBO (small bowel obstruction) CKD (chronic kidney disease) Hypertrophy of both inferior nasal turbinates Chronic rhinitis Anemia Rotator cuff tear Per MRI 02/2020. Followed by orthopedics. Declined operative management. Small bowel obstruction 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 History of colon cancer 1978 Surgical History H/O hernia repair Hx of abdominal surgery History of total right hip replacement Hx of vasectomy History of colostomy History of bowel resection History of colonoscopy History of esophagogastroduodenoscopy (EGD) Status post Mohs surgery for basal cell carcinoma History of root canal procedure History of wisdom tooth extraction History of tonsillectomy and adenoidectomy History of phacoemulsification of cataract of both eyes with intraocular lens implantation History of cardioversion Family History Father Hypertension Diabetes Mother Breast cancer Ovarian cancer Brother Colorectal cancer Other Coronary heart disease No family history of adverse response to anesthesia Denies family history of Prostate cancer Crohn's disease Myocardial infarction Lung cancer Inflammatory bowel disease Social History (Updated 02/29/24 @ 16:07 by Cherelle Collado LPN) Smoking Status: Former smoker Tobacco Type: Pipe Age Started Using Tobacco: 22; Age Quit Using Tobacco: 52; Second Hand Exposure: No; Do You Dip or Chew Tobacco: No; Hx Alcohol Use: No Hx Substance Use: No Preferred Language: British Communication Ability: Effective Visual Impairment: Diminished Hearing Ability: Normal [employer] School Professional Required: No Beliefs That Will Affect Care: None marital status: Current Living Situation: Spouse current occupational 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, [employer] How many Children do You have: 1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 Feels Safe at Home: Yes Childhood Exposure to Second-Hand Smoke: Yes (father smoked in home ) Diet: regular Diet Comment: low fiber caffeine: Yes (drinks coffee daily about half a cup ) Dental Care, Regularly: Yes Physical Activity Frequency: 3-4 Times per Week Physical Activity Frequency Comment: 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 Seatbelt Use: always Sunscreen Use: No (says he does cover up well ) Do you think of yourself as: straight/heterosexual Assistive Devices: Cane and Glasses Allergies Allergies Allergy/AdvReac Type Severity Reaction Status Date / Time tetanus toxoid, adsorbed Allergy Intermediate BLISTERS Verified 04/15/24 02:08 AND EYES SWELLING hydromorphone AdvReac Intermediate HALLUCINATI Verified 04/15/24 02:08 ONS lorazepam AdvReac Intermediate HALLUCINATI Verified 04/15/24 02:08 ONS Home Meds Home Medications Medication Instructions Recorded Confirmed mecobalamin (vitamin B12) 1,000 1,000 mcg PO QPM 07/23/20 04/15/24 mcg chewable tablet cholecalciferol (vitamin D3) 50 50 mcg PO QAM 12/10/20 04/15/24 mcg (2,000 unit) capsule [id number] 300 mcg-K 60 1 tab PO QAM 12/10/20 04/15/24 mcg-lycop 600 mcg-lutein 300 mcg tablet (Centrum Silver Men) glipizide 5 mg tablet, extended 5 mg PO QAM 08/16/23 04/15/24 release 24 hr pantoprazole 40 mg tablet,delayed 40 mg PO BID 08/16/23 04/15/24 release Previous Rx's Medication Instructions Recorded aspirin 81 mg tablet,delayed 81 mg PO DAILY #30 tabs 05/29/22 release (Adult Low Dose Aspirin) metformin 500 mg tablet,extended 500 mg PO QPM #90 tabs 02/12/23 release 24 hr empagliflozin 25 mg tablet 25 mg PO DAILY #90 tabs 08/13/23 rivaroxaban 20 mg tablet (Xarelto) 20 mg PO QAM #90 tabs 10/25/23 metoprolol succinate 50 mg 75 mg (1.5 x 50 mg) PO DAILY #120 01/13/24 tablet,extended release 24 hr tabs levothyroxine 50 mcg tablet 50 mcg PO . ABOUT LUNCHTIME #90 03/28/24 tabs simvastatin 40 mg tablet 40 mg PO PM #90 tabs 03/28/24 diltiazem HCl 120 mg 120 mg PO DAILY #90 caps 04/04/24 capsule,extended release 24 hr (Cartia XT) Results & Data (ED) Vital Signs Vital Signs - 24 hr 04/14/24 23:56 04/15/24 00:12 04/15/24 00:20 Temperature 36.8 C Temperature Source Temporal Artery Scan Pulse Rate 95 H 74 Pulse Rate [Apical] 88 Pulse Rhythm [Apical] Pulse Strength [Apical] Respiratory Rate 18 20 Respiratory Effort / Characteristics Non-Labored Spontaneous Respiratory Depth Normal Normal Respiratory Pattern Regular Blood Pressure 123/82 Blood Pressure [Right Arm] 146/87 H Blood Pressure Mean 95 Blood Pressure Mean [Right Arm] 106 Blood Pressure Position [Right Arm] Sitting Pulse Oximetry 95 96 Oxygen Delivery Method Room Air Room Air Sepsis Recent Fever Within 48 Hours No Sepsis New/Unexplained Change in Mental Status N/A Sepsis Action Taken by Nursing No Action Required 04/15/24 02:00 04/15/24 02:56 04/15/24 04:11 Temperature Temperature Source Pulse Rate 42 L Pulse Rate [Apical] 67 58 L Pulse Rhythm [Apical] Pulse Strength [Apical] Respiratory Rate 18 18 Respiratory Effort / Characteristics Non-Labored Spontaneous Non-Labored Spontaneous Respiratory Depth Normal Normal Respiratory Pattern Regular Regular Blood Pressure Blood Pressure [Right Arm] 125/87 129/79 Blood Pressure Mean Blood Pressure Mean [Right Arm] 99 95 Blood Pressure Position [Right Arm] Sitting Sitting Pulse Oximetry 96 97 Oxygen Delivery Method Room Air Room Air Sepsis Recent Fever Within 48 Hours Sepsis New/Unexplained Change in Mental Status Sepsis Action Taken by Nursing 04/15/24 05:00 Temperature Temperature Source Pulse Rate Pulse Rate [Apical] 76 Pulse Rhythm [Apical] Regular Pulse Strength [Apical] Normal Respiratory Rate 18 Respiratory Effort / Characteristics Non-Labored Spontaneous Respiratory Depth Normal Respiratory Pattern Regular Blood Pressure Blood Pressure [Right Arm] 127/70 Blood Pressure Mean Blood Pressure Mean [Right Arm] 89 Blood Pressure Position [Right Arm] Lying Pulse Oximetry 98 Oxygen Delivery Method Room Air Sepsis Recent Fever Within 48 Hours Sepsis New/Unexplained Change in Mental Status Sepsis Action Taken by Nursing Laboratory Data 04/15/24 00:15 04/15/24 00:15 Lab Results 04/15/24 04/15/24 Range/Units 00:15 01:10 WBC 9.37 (4.8-10.8) K/ul RBC 5.15 (4.70-6.10) M/uL Hgb 15.5 (14.0-18.0) g/dl Hct 46.1 (42.0-52.0) % MCV 89.5 (80.0-100.0) fL MCH 30.1 (25.0-34.0) pg MCHC 33.6 (32.0-36.0) g/dL RDW Std Deviation 44.3 (36.4-46.3) fL RDW Coeff of [place] 13.6 (11.5-14.5) % Plt Count 227 (130-400) K/uL MPV 9.1 L (9.4-12.4) fL Immature Gran % (Auto) 0.6 % Neut % (Auto) 73.1 % Lymph % (Auto) 13.7 % [place] % (Auto) 9.2 % Eos % (Auto) 2.9 % Baso % (Auto) 0.5 % Neut # (Auto) 6.85 H (1.40-6.50) K/uL Lymph # (Auto) 1.28 (1.20-3.40) K/uL [place] # (Auto) 0.86 H (0.11-0.59) K/uL Eos # (Auto) 0.27 (0.00-0.50) K/uL Baso # (Auto) 0.05 (0.00-0.20) K/uL Immature Gran # (Auto) 0.06 (0.01-0.20) K/uL PT 11.3 (9.0-12.0) Seconds INR 1.0 (0.9-1.1) APTT 31 (21-31) Seconds PTT Ratio 1.2 Sodium 139 (136-145) mmol/L Potassium 4.0 (3.5-5.1) mmol/L Chloride 107 (98-107) mmol/L Carbon Dioxide 25 (21-32) mmol/L Anion Gap 7 (3-11) BUN 13 (6-23) mg/dl Creatinine 1.22 (0.6-1.4) mg/dl Est Cr Clr Drug Dosing 44.9 ml/min Est GFR ( Amer) 61.8 ml/min Est GFR (Non-Af Amer) 53.4 ml/min BUN/Creatinine Ratio 10.7 (10-20) Glucose 185 H (70-99(Fasting)) mg/dl Lactate 1.7 (0.4-2.0) mmol/L Calcium 9.0 (8.6-10.3) mg/dl Total Bilirubin 0.5 (0.2-1.0) mg/dl AST 15 (13-39) U/L ALT 9 (7-52) U/L Alkaline Phosphatase 67 (34-104) U/L Total Protein 6.8 (6.0-8.3) gm/dl Albumin 4.1 (3.4-5.0) gm/dl Globulin 2.7 (2.5-4.0) gm/dl Albumin/Globulin Ratio 1.5 (0.9-2) Administered Medications Sodium Chloride (Nss) 1,000 mls @ 170 mls/hr IV .[id number] RACHEL Stop: 04/15/24 15:30 Last Admin: 04/15/24 03:50 Dose: 125 mls/hr Documented By: IDD Discontinued Medications Acetaminophen (Ofirmev) 1,000 mg in 100 mls @ 400 mls/hr IV NOW STA Stop: 04/15/24 00:46 Last Infusion: 04/15/24 01:55 Dose: Infused Documented By: Admin: 04/15/24 01:13 Dose: 400 mls/hr Documented By: POONAM Ioversol (Optiray 320 100ml) 94 ml IV ONCE ONE Stop: 04/15/24 01:29 Last Admin: 04/15/24 01:28 Dose: 94 ml Documented By: JANNIE Ondansetron HCl (Ondansetron Inj 2 Mg/Ml 2 Ml Vial) 4 mg IV NOW STA Stop: 04/15/24 03:44 Last Admin: 04/15/24 03:50 Dose: 4 mg Documented By: ENOCH Imaging Data Radiologist's Impression: Abdomen/Pelvis CT 04/15/24 00:33 Exam(s): CT ABDOMEN + PELVIS With Contrast IV Amt: 94 cc's optiray 320 EXAM: CT Abdomen and Pelvis With Intravenous Contrast CLINICAL HISTORY: Reason for exam: abd pain, poss SBO, hx of same, colostomy. TECHNIQUE: Axial computed tomography images of the abdomen and pelvis with intravenous contrast. CTDI is 26.51 mGy and DLP is 1394.06 mGy-cm. Automated exposure control was utilized for the study. A dose lowering technique was utilized adhering to the principles of ALARA. CONTRAST: Patient received 94 cc's optiray 320 of IV contrast COMPARISON: CT abdomen and pelvis: 08/16/2023 FINDINGS: Lung bases: There is mild chronic lower lobe interstitial thickening and mild subpleural fibrosis.. No mass. No consolidation. Heart: There are coronary artery calcifications. ABDOMEN: Liver: Unremarkable. No mass. Gallbladder and bile ducts: Unremarkable. No calcified stones. No ductal dilation. Pancreas: Unremarkable. No mass. No ductal dilation. Spleen: Unremarkable. No splenomegaly. Adrenals: Unremarkable. No mass. Kidneys and ureters: There are persistent simple bilateral renal cysts. No follow-up required. No hydronephrosis. Stomach and bowel: There is mild small bowel distention with associated fluid levels. There is relative decompression of the terminal ileum. No focal abrupt transition point is noted. An early partial bowel obstruction is a consideration. There is gas and stool noted within the colon. There is a left lower quadrant colostomy. No mucosal thickening. PELVIS: Appendix: No findings to suggest acute appendicitis. Bladder: Unremarkable. No mass. Reproductive: Unremarkable as visualized. ABDOMEN and PELVIS: Intraperitoneal space: Unremarkable. No free air. No significant fluid collection. Bones/joints: No acute fracture. No dislocation. Soft tissues: Unremarkable. Vasculature: There are scattered aortic and branch vessel atherosclerotic calcifications. No aneurysm identified. Lymph nodes: Unremarkable. No enlarged lymph nodes. IMPRESSION: 1. There is mild to moderate small bowel distention with associated air- fluid levels. There is relatively decompressed terminal ileum. No abrupt transition point is noted. There is gas and stool noted throughout the colon. An early partial small bowel obstruction is noted. No high-grade or complete obstruction is noted. 2. No free air or abscess identified. The visualized appendix is within normal limits. Electronically signed by: Cleve Burt MD 04/15/24 03:28 AM Discharge Plan Visit Data Chief Complaint: GI Assessment Stated Complaint: ABD PAIN,?BLOCKAGE ED Provider: Heather Solitario Discharge Problem: Abdominal pain, SBO (small bowel obstruction) Forms Stand Alone Forms: My [facility] obopay Prescriptions Prescriptions: No Action metformin 500 mg tablet extended release 24 hr 500 mg PO QPM Qty: 90 3RF empagliflozin 25 mg tablet 25 mg PO DAILY Qty: 90 3RF Xarelto 20 mg tablet 20 mg PO QAM Qty: 90 3RF metoprolol succinate 50 mg tablet extended release 24 hr 75 mg PO DAILY Qty: 120 3RF simvastatin 40 mg tablet 40 mg PO PM Qty: 90 3RF levothyroxine 50 mcg tablet 50 mcg PO . ABOUT LUNCHTIME Qty: 90 1RF Rx Instructions: about lunchtime diltiazem HCl [Cartia XT] 120 mg capsule,extended release 24hr 120 mg PO DAILY Qty: 90 3RF mecobalamin (vitamin B12) 1,000 mcg tablet,chewable 1,000 mcg PO QPM Centrum Silver Men 300-600-300 mcg tablet 1 tab PO QAM cholecalciferol (vitamin D3) 50 mcg (2,000 unit) capsule 50 mcg PO QAM aspirin [Adult Low Dose Aspirin] 81 mg tablet,delayed release (DR/EC) 81 mg PO DAILY Qty: 30 0RF glipizide 5 mg tablet extended release 24hr 5 mg PO QAM pantoprazole 40 mg tablet,delayed release (DR/EC) 40 mg PO BID Referrals Referrals: Romulo Barker DO [Primary Care Provider] -
[2024-04-15 00:54] LABS: Albumin Globulin Ratio 1.5 (0.9-2); Albumin Level 4.1 gm/dl (3.4-5.0); BUN Creatinine Ratio 10.7 (10-20); Bilirubin,Total 0.5 mg/dl (0.2-1.0); Creatinine Clr Calc Pharmacy 44.9 ml/min; Est GFR (African American) 61.8 ml/min; Est GFR (Non-African American) 53.4 ml/min; Globulin 2.7 gm/dl (2.5-4.0); Total Protein 6.8 gm/dl (6.0-8.3)
[2024-04-15 01:09] LABS: Partial Thromboplastin Ratio 1.2; Partial Thromboplastin Time 31 Seconds (21-31); Prothrombin Time 11.3 Seconds (9.0-12.0)
[2024-04-15] MEDS: ACETAMINOPHEN 1,000 MG/100 ML VIAL IV STA (01:13)
[2024-04-15] MEDS: OPTIRAY 320 100ml IV ONE (01:28)
--- NOTE | 2024-04-15 03:28 | CT Scan Report ---
Exam(s): CT ABDOMEN + PELVIS With Contrast IV Amt: 94 cc's optiray 320 EXAM: CT Abdomen and Pelvis With Intravenous Contrast CLINICAL HISTORY: Reason for exam: abd pain, poss SBO, hx of same, colostomy. TECHNIQUE: Axial computed tomography images of the abdomen and pelvis with intravenous contrast. CTDI is 26.51 mGy and DLP is 1394.06 mGy-cm. Automated exposure control was utilized for the study. A dose lowering technique was utilized adhering to the principles of ALARA. CONTRAST: Patient received 94 cc's optiray 320 of IV contrast COMPARISON: CT abdomen and pelvis: 08/16/2023 FINDINGS: Lung bases: There is mild chronic lower lobe interstitial thickening and mild subpleural fibrosis.. No mass. No consolidation. Heart: There are coronary artery calcifications. ABDOMEN: Liver: Unremarkable. No mass. Gallbladder and bile ducts: Unremarkable. No calcified stones. No ductal dilation. Pancreas: Unremarkable. No mass. No ductal dilation. Spleen: Unremarkable. No splenomegaly. Adrenals: Unremarkable. No mass. Kidneys and ureters: There are persistent simple bilateral renal cysts. No follow-up required. No hydronephrosis. Stomach and bowel: There is mild small bowel distention with associated fluid levels. There is relative decompression of the terminal ileum. No focal abrupt transition point is noted. An early partial bowel obstruction is a consideration. There is gas and stool noted within the colon. There is a left lower quadrant colostomy. No mucosal thickening. PELVIS: Appendix: No findings to suggest acute appendicitis. Bladder: Unremarkable. No mass. Reproductive: Unremarkable as visualized. ABDOMEN and PELVIS: Intraperitoneal space: Unremarkable. No free air. No significant fluid collection. Bones/joints: No acute fracture. No dislocation. Soft tissues: Unremarkable. Vasculature: There are scattered aortic and branch vessel atherosclerotic calcifications. No aneurysm identified. Lymph nodes: Unremarkable. No enlarged lymph nodes. IMPRESSION: 1. There is mild to moderate small bowel distention with associated air- fluid levels. There is relatively decompressed terminal ileum. No abrupt transition point is noted. There is gas and stool noted throughout the colon. An early partial small bowel obstruction is noted. No high-grade or complete obstruction is noted. 2. No free air or abscess identified. The visualized appendix is within normal limits. Electronically signed by: Cleve Burt MD 04/15/24 03:28 AM
[2024-04-15] MEDS: ONDANSETRON INJ 2 MG/ML 2 ML VIAL IV STA (03:50)
[2024-04-15] MEDS: SODIUM CHLORIDE 0.9% 1,000 ML IV SCH (03:50)
--- NOTE | 2024-04-15 03:55 | History & Physical Report ---
Date of Service April 15, 2024 Assessment & Plan (1) History of small bowel obstruction: (2) Hypothyroidism: (3) Diabetes mellitus, type 2: (4) Hypertension: (5) Hyperlipidemia: (6) Atrial fibrillation: (7) Iron deficiency: (8) GERD (gastroesophageal reflux disease): (9) SBO (small bowel obstruction): Acacia Fitzgerald is a 88M w/ PMH of multiple SBOs, hypothyroidism, CVA, DM2, HTN, HLD, A Fib on anticoagulation, iron deficiency anemia. GERD, and gout who presents for evaluation of abdominal pain and is being admitted for SBO. 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 There is relatively decompressed terminal ileum. No abrupt transition point is noted. There is gas and stool noted throughout the colon. An early partial small bowel obstruction is noted. No high-grade or complete obstruction is noted. - Hemodynamically stable, labs unremarkable - Follows with general surgery outpatient Consulted on admission - Admit to med/surg and plan for conservative management at this time NPO 1.5x mIVF (NSS @ 170 cc/hr) Zofran PRN for nausea Tylenol PRN for pain No indication for NGT at this time - Continue ostomy care inpatient Chronic Conditions - HLD: Continue statin - AFib: Continue Xarelto, Diltiazem and Metoprolol - GERD: Continu Pantoprazole - DM2: BSG Q4h while NPO, SSI ordered, home meds held - Hypothyroidism: Continue Levothyroxine - HTN: Continue home antihypertensives FEN: NPO Code status: DNR/DNI DVT ppx: Ambulation / SCD Isolation: None Dispo:Med/Surg History of Present Illness Chief Complaint: Abdominal Pain Primary Care Provider: Romulo Barker DO Fitzgerald is a 88M w/ PMH of multiple SBOs, hypothyroidism, CVA, DM2, HTN, HLD, A Fib on anticoagulation, iron deficiency anemia. GERD, and gout who presents for evaluation of abdominal pain and is being admitted for SBO. Onset: Yesterday had two loose ostomy outputs and subsequently developed abdominal pain and distension Prior: Extensive surgical history, multiple prior SBOs (10+), had prior lysis of adhesions w/ Dr. Santosh Chauhan: Symptoms progressed through the night and patient knew from prior episodes that he was again developing an SBO, in the past he notices a reduction in gas in his ostomy bag whenever he is developing an SBO and this happened prior to arrival Pal/Prov: Has modified his home diet to contain more fluids, soups, and less fiber - which he felt had reduced the frequency of SBOs Reg/Rad: Discomfort/bloating primarily localized to LLQ Quality: Bloating, cramping Sev/Scale: Moderate Treat: None Associated: No fevers, chills, nausea or emesis. No stoma changes. No dysuria or frequency. No headaches or lightheadedness. Allergies Allergy/AdvReac Type Severity Reaction Status Date / Time tetanus toxoid, adsorbed Allergy Intermediate BLISTERS Verified 04/15/24 02:08 AND EYES SWELLING hydromorphone AdvReac Intermediate HALLUCINATI Verified 04/15/24 02:08 ONS lorazepam AdvReac Intermediate HALLUCINATI Verified 04/15/24 02:08 ONS Home Medications Medication Instructions Recorded Confirmed Type mecobalamin (vitamin B12) 1,000 1,000 mcg PO QPM 07/23/20 04/15/24 History mcg chewable tablet cholecalciferol (vitamin D3) 50 50 mcg PO QAM 12/10/20 04/15/24 History mcg (2,000 unit) capsule ihvlqakz-he-[id number] 300 mcg-K 60 1 tab PO QAM 12/10/20 04/15/24 History mcg-lycop 600 mcg-lutein 300 mcg tablet (Centrum Silver Men) aspirin 81 mg tablet,delayed 81 mg PO DAILY #30 tabs 05/29/22 04/15/24 Rx release (Adult Low Dose Aspirin) metformin 500 mg tablet,extended 500 mg PO QPM #90 tabs 02/12/23 04/15/24 Rx release 24 hr empagliflozin 25 mg tablet 25 mg PO DAILY #90 tabs 08/13/23 04/15/24 Rx glipizide 5 mg tablet, extended 5 mg PO QAM 08/16/23 04/15/24 History release 24 hr pantoprazole 40 mg tablet,delayed 40 mg PO BID 08/16/23 04/15/24 History release rivaroxaban 20 mg tablet (Xarelto) 20 mg PO QAM #90 tabs 10/25/23 04/15/24 Rx metoprolol succinate 50 mg 75 mg (1.5 x 50 mg) PO DAILY #120 01/13/24 04/15/24 Rx tablet,extended release 24 hr tabs levothyroxine 50 mcg tablet 50 mcg PO . ABOUT LUNCHTIME #90 03/28/24 04/15/24 Rx tabs simvastatin 40 mg tablet 40 mg PO PM #90 tabs 03/28/24 04/15/24 Rx diltiazem HCl 120 mg 120 mg PO DAILY #90 caps 04/04/24 04/15/24 Rx capsule,extended release 24 hr (Cartia XT) Past Med/Surg History Problem List (Updated 04/15/24 @ 00:43 by Heather Solitario DO) Abdominal pain (Acute) Balance disorder History of small bowel obstruction Hypothyroidism CVA (cerebral vascular accident) On anticoagulant therapy xarelto daily Diabetes mellitus, type 2 Hiatal hernia Hypertension Hyperlipidemia Classic migraine Atrial fibrillation Iron deficiency Mitral regurgitation Gout Memory deficits GERD (gastroesophageal reflux disease) Expressive aphasia Abdominal pain (Acute) Medical History (Updated 04/15/24 @ 00:43 by Heather Solitario DO) Cerebellar hemorrhage COVID-19 SBO (small bowel obstruction) CKD (chronic kidney disease) Hypertrophy of both inferior nasal turbinates Chronic rhinitis Anemia Rotator cuff tear Per MRI 02/2020. Followed by orthopedics. Declined operative management. Small bowel obstruction 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 History of colon cancer 1978 Surgical History H/O hernia repair Hx of abdominal surgery History of total right hip replacement Hx of vasectomy History of colostomy History of bowel resection History of colonoscopy History of esophagogastroduodenoscopy (EGD) Status post Mohs surgery for basal cell carcinoma History of root canal procedure History of wisdom tooth extraction History of tonsillectomy and adenoidectomy History of phacoemulsification of cataract of both eyes with intraocular lens implantation History of cardioversion Family History Father Hypertension Diabetes Mother Breast cancer Ovarian cancer Brother Colorectal cancer Other Coronary heart disease No family history of adverse response to anesthesia Denies family history of Prostate cancer Crohn's disease Myocardial infarction Lung cancer Inflammatory bowel disease Social History (Updated 02/29/24 @ 16:07 by Cherelle Collado LPN) Smoking Status: Former smoker Tobacco Type: Pipe Age Started Using Tobacco: 22; Age Quit Using Tobacco: 52; Second Hand Exposure: No; Do You Dip or Chew Tobacco: No; Hx Alcohol Use: No Hx Substance Use: No Preferred Language: Yoruba Communication Ability: Effective Visual Impairment: Diminished Hearing Ability: Normal 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: No Beliefs That Will Affect Care: None marital status: Current Living Situation: Spouse current occupational 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[employer], [employer] How many Children do You have: 1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 Feels Safe at Home: Yes Childhood Exposure to Second-Hand Smoke: Yes (father smoked in home ) Diet: regular Diet Comment: low fiber caffeine: Yes (drinks coffee daily about half a cup ) Dental Care, Regularly: Yes Physical Activity Frequency: 3-4 Times per Week Physical Activity Frequency Comment: 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 Seatbelt Use: always Sunscreen Use: No (says he does cover up well ) Do you think of yourself as: straight/heterosexual Assistive Devices: Cane and Glasses Physical Exam Physical Exam: Gen: NAD, alert, interactive, pleasant HEENT: Supple, no LAD, no JVD Resp:Non-labored, no wheezing/rhonchi/rales, CTAB CV:bradycardic, regular rhythm, normal S1/S2, no M/R/G Abd: Soft, LLQ distension, mild TTP of LLQ, active bowels, no masses, +ostomy in LLQ - Ostomy: stoma pink, small parastomal h ernia, small stool in collection bag Extr: 2+ dp bilaterally, no edema Skin: No rashes lesions or erythema Results & Data Results & Data Vital Signs (Past 12 Hours) Vital Signs Temp Pulse Pulse Resp BP BP Pulse Ox 04/15/24 02:56 58 L 18 129/79 97 04/15/24 02:00 67 18 125/87 96 04/15/24 00:20 88 20 146/87 H 96 04/15/24 00:12 74 04/14/24 23:56 36.8 C 95 H 18 123/82 95 O2 Del Method 04/15/24 02:56 Room Air 04/15/24 02:00 Room Air 04/15/24 00:20 Room Air 04/15/24 00:12 04/14/24 23:56 Room Air Supervising Physician Co-Signing Physician Notes Attending addendum: I have physically seen this patient, have supervised the medical residents activities, and agree with the H&P unless as otherwise noted. Assessment and Plan: Small bowel obstruction- History of multiple SBO's associated with abdominal surgeries and adhesions N.p.o. except medications Zofran 4 mg IV every 6 hours as needed Acetaminophen 1 g IV every 8 hours as needed for mild pain or fever IV fluids as noted Continue ostomy care consult to wound care Atrial fibrillation- Hold Xarelto Placed on heparin IV Diltiazem/metoprolol with hold parameters Diabetes mellitus- Hold glipizide and empagliflozin Placed on Accu-Cheks with NovoLog SSI as noted GERD- Pantoprazole 40 mg IV daily Resident Activity Tracking Resident Involvement: Resident Care Provided Care Provided: Adult Hospital Medicine
--- NOTE | 2024-04-15 05:27 | Billing Data ---
Date of Service April 15, 2024 Coding Level of Care Code 37898 INT INP/OBS CARE
[2024-04-15] MEDS ORDERED: CARBOHYDRATES FOR HYPOGLYCEMIA PO PRN (09:30)
[2024-04-15] MEDS ORDERED: ACETAMINOPHEN 1,000 MG/100 ML VIAL IV PRN (09:30)
[2024-04-15] MEDS ORDERED: GLUCOSE 10 TAB/TUBE PO PRN (09:30)
[2024-04-15] MEDS ORDERED: ONDANSETRON INJ 2 MG/ML 2 ML VIAL IV PRN (09:30)
[2024-04-15] MEDS ORDERED: DEXTROSE 50% 50 ML SYRINGE IV PRN (09:30)
[2024-04-15] MEDS ORDERED: GLUCAGON FOR INJ 1 MG VIAL SQ PRN (09:30)
[2024-04-15] MEDS ORDERED: GLUCOSE 40% GEL 15 GM TUBE PO PRN (09:30)
[2024-04-15 10:12] LABS: Basophils # (auto) 0.03 K/uL (0.00-0.20); Basophils % (auto) 0.4 %; Eosinophils # (auto) 0.22 K/uL (0.00-0.50); Eosinophils % (auto) 3.3 %; Hematocrit (blood only) 41.9 % (42.0-52.0); Immature Granulocytes # (auto) 0.02 K/uL (0.01-0.20); Immature Granulocytes % (auto) 0.3 %; Lymphocytes # (auto) 0.97 K/uL (1.20-3.40); Lymphocytes % (auto) 14.4 %; Mean Corpuscular Hemoglobin 29.9 pg (25.0-34.0); Mean Corpuscular Hgb Conc 33.4 g/dL (32.0-36.0); Mean Corpuscular Volume 89.3 fL (80.0-100.0); Mean Platelet Volume 8.9 fL (9.4-12.4); Monocytes % (auto) 10.4 %; Neutrophils # (auto) 4.78 K/uL (1.40-6.50); Neutrophils % (auto) 71.2 %; Platelet Count 184 K/uL (130-400); RDW Coefficient of Variation 13.7 % (11.5-14.5); RDW Standard Deviation 44.7 fL (36.4-46.3); Red Blood Count 4.69 M/uL (4.70-6.10); White Blood Count 6.72 K/ul (4.8-10.8)
[2024-04-15] MEDS ORDERED: Nursing to Pharmacy Communication SCH (10:15)
--- NOTE | 2024-04-15 10:26 | Surgery Consultation ---
Date of Consultation April 15, 2024 Assessment & Plan (1) SBO (small bowel obstruction): more of ileus pattern IVF NG if vomiting occurs feels better this AM conservative treatment History of Present Illness Attending Physician: Jluis Mcqueen MD History of Present Illness This is an 88-year-old male admitted with diarrhea, abdominal pain, and decreased output from his colostomy. He has had multiple admissions with small bowel obstructions which resolve conservative management. He began with a bout of diarrhea and then abdominal pain and less ostomy output, Nausea but no vomiting. CT scan with likely ileus related to GI illness. Allergies Allergy/AdvReac Type Severity Reaction Status Date / Time tetanus toxoid, adsorbed Allergy Intermediate BLISTERS Verified 04/15/24 02:08 AND EYES SWELLING hydromorphone AdvReac Intermediate HALLUCINATI Verified 04/15/24 02:08 ONS lorazepam AdvReac Intermediate HALLUCINATI Verified 04/15/24 02:08 ONS Home Medications Medication Instructions Recorded Confirmed Type mecobalamin (vitamin B12) 1,000 1,000 mcg PO QPM 07/23/20 04/15/24 History mcg chewable tablet cholecalciferol (vitamin D3) 50 50 mcg PO QAM 12/10/20 04/15/24 History mcg (2,000 unit) capsule bcdiczid-wv-[id number] 300 mcg-K 60 1 tab PO QAM 12/10/20 04/15/24 History mcg-lycop 600 mcg-lutein 300 mcg tablet (Centrum Silver Men) aspirin 81 mg tablet,delayed 81 mg PO DAILY #30 tabs 05/29/22 04/15/24 Rx release (Adult Low Dose Aspirin) metformin 500 mg tablet,extended 500 mg PO QPM #90 tabs 02/12/23 04/15/24 Rx release 24 hr empagliflozin 25 mg tablet 25 mg PO DAILY #90 tabs 08/13/23 04/15/24 Rx glipizide 5 mg tablet, extended 5 mg PO QAM 08/16/23 04/15/24 History release 24 hr pantoprazole 40 mg tablet,delayed 40 mg PO BID 08/16/23 04/15/24 History release rivaroxaban 20 mg tablet (Xarelto) 20 mg PO QAM #90 tabs 10/25/23 04/15/24 Rx metoprolol succinate 50 mg 75 mg (1.5 x 50 mg) PO DAILY #120 05/30/24 08/31/24 Rx tablet,extended release 24 hr tabs levothyroxine 50 mcg tablet 50 mcg PO . ABOUT LUNCHTIME #90 03/28/24 04/15/24 Rx tabs simvastatin 40 mg tablet 40 mg PO PM #90 tabs 03/28/24 04/15/24 Rx diltiazem HCl 120 mg 120 mg PO DAILY #90 caps 04/04/24 04/15/24 Rx capsule,extended release 24 hr (Cartia XT) Patient History Medical History (Updated 04/15/24 @ 06:52 by Heather Solitario DO) Cerebellar hemorrhage COVID-19 SBO (small bowel obstruction) CKD (chronic kidney disease) Hypertrophy of both inferior nasal turbinates Chronic rhinitis Anemia Rotator cuff tear Per MRI 02/2020. Followed by orthopedics. Declined operative management. Small bowel obstruction 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 History of colon cancer 1978 Surgical History H/O hernia repair Hx of abdominal surgery History of total right hip replacement Hx of vasectomy History of colostomy History of bowel resection History of colonoscopy History of esophagogastroduodenoscopy (EGD) Status post Mohs surgery for basal cell carcinoma History of root canal procedure History of wisdom tooth extraction History of tonsillectomy and adenoidectomy History of phacoemulsification of cataract of both eyes with intraocular lens implantation History of cardioversion Family History Father Hypertension Diabetes Mother Breast cancer Ovarian cancer Brother Colorectal cancer Other Coronary heart disease No family history of adverse response to anesthesia Denies family history of Prostate cancer Crohn's disease Myocardial infarction Lung cancer Inflammatory bowel disease Social History (Updated 02/29/24 @ 16:07 by Cherelle Collado LPN) Smoking Status: Former smoker Tobacco Type: Pipe Age Started Using Tobacco: 22; Age Quit Using Tobacco: 52; Second Hand Exposure: No; Do You Dip or Chew Tobacco: No; Hx Alcohol Use: No Hx Substance Use: No Preferred Language: Persian Communication Ability: Effective Visual Impairment: Diminished Hearing Ability: Normal 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: No Beliefs That Will Affect Care: None marital status: Current Living Situation: Spouse current occupational 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, [employer] How many Children do You have: 1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 Feels Safe at Home: Yes Childhood Exposure to Second-Hand Smoke: Yes (father smoked in home ) Diet: regular Diet Comment: low fiber caffeine: Yes (drinks coffee daily about half a cup ) Dental Care, Regularly: Yes Physical Activity Frequency: 3-4 Times per Week Physical Activity Frequency Comment: 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 Seatbelt Use: always Sunscreen Use: No (says he does cover up well ) Do you think of yourself as: straight/heterosexual Assistive Devices: Cane and Glasses Review of Systems Constitutional: no fever and no chills Eyes: no problem reported Ear, Nose, Mouth, Throat: no problem reported Respiratory: no cough and no dyspnea Cardiovascular: no chest pain Gastrointestinal: + abdominal pain, + nausea and + change in bowel habits; no vomiting Genitourinary: no dysuria Musculoskeletal: no back pain Integumentary: no problem reported Neurologic: + generalized weakness; no localized wea kness Psychiatric: no behavioral changes Hematologic / Lymphatic: no easy bleeding and no easy bruising Physical Exam Constitutional: + thin Eyes: PERRL, conjunctivae normal, anicteric sclerae ENMT: external ear and nose normal, oropharynx normal Neck: trachea midline Respiratory: normal respiratory effort, lungs clear to auscultation Cardiovascular: RRR, no murmur, no edema Gastrointestinal (Abdomen): Inspection/Auscultation: abdomen normal to inspection, + abdomen distended and normal bowel sounds Percussion/Palpation: abdomen soft; abdomen nontender, no guarding and abdomen not rigid ostomy pink and patent Musculoskeletal: Head/Neck/Chest: normocephalic and head atraumatic Skin: no rashes, warm and dry Results & Data Vital Signs (Past 12 Hours) Vital Signs Temp Pulse Pulse Resp BP BP Pulse Ox 04/15/24 09:04 74 16 127/79 04/15/24 08:54 74 16 88 L 04/15/24 08:20 84 04/15/24 08:03 61 17 127/79 04/15/24 07:00 83 18 04/15/24 05:00 76 18 127/70 98 04/15/24 04:11 42 L 04/15/24 02:56 58 L 18 129/79 97 04/15/24 02:00 67 18 125/87 96 04/15/24 00:20 88 20 146/87 H 96 04/15/24 00:12 74 04/14/24 23:56 36.8 C 95 H 18 123/82 95 O2 Del Method 04/15/24 09:04 04/15/24 08:54 04/15/24 08:20 04/15/24 08:03 04/15/24 07:00 04/15/24 05:00 Room Air 04/15/24 04:11 04/15/24 02:56 Room Air 04/15/24 02:00 Room Air 04/15/24 00:20 Room Air 04/15/24 00:12 04/14/24 23:56 Room Air Diagnostic Findings Exam(s): CT ABDOMEN + PELVIS With Contrast IV Amt: 94 cc's optiray 320 EXAM: CT Abdomen and Pelvis With Intravenous Contrast CLINICAL HISTORY: Reason for exam: abd pain, poss SBO, hx of same, colostomy. TECHNIQUE: Axial computed tomography images of the abdomen and pelvis with intravenous contrast. CTDI is 26.51 mGy and DLP is 1394.06 mGy-cm. Automated exposure control was utilized for the study. A dose lowering technique was utilized adhering to the principles of ALARA. CONTRAST: Patient received 94 cc's optiray 320 of IV contrast COMPARISON: CT abdomen and pelvis: 08/16/2023 FINDINGS: Lung bases: There is mild chronic lower lobe interstitial thickening and mild subpleural fibrosis.. No mass. No consolidation. Heart: There are coronary artery calcifications. ABDOMEN: Liver: Unremarkable. No mass. Gallbladder and bile ducts: Unremarkable. No calcified stones. No ductal dilation. Pancreas: Unremarkable. No mass. No ductal dilation. Spleen: Unremarkable. No splenomegaly. Adrenals: Unremarkable. No mass. Kidneys and ureters: There are persistent simple bilateral renal cysts. No follow-up required. No hydronephrosis. Stomach and bowel: There is mild small bowel distention with associated fluid levels. There is relative decompression of the terminal ileum. No focal abrupt transition point is noted. An early partial bowel obstruction is a consideration. There is gas and stool noted within the colon. There is a left lower quadrant colostomy. No mucosal thickening. PELVIS: Appendix: No findings to suggest acute appendicitis. Bladder: Unremarkable. No mass. Reproductive: Unremarkable as visualized. ABDOMEN and PELVIS: Intraperitoneal space: Unremarkable. No free air. No significant fluid collection. Bones/joints: No acute fracture. No dislocation. Soft tissues: Unremarkable. Vasculature: There are scattered aortic and branch vessel atherosclerotic calcifications. No aneurysm identified. Lymph nodes: Unremarkable. No enlarged lymph nodes. IMPRESSION: 1. There is mild to moderate small bowel distention with associated air- fluid levels. There is relatively decompressed terminal ileum. No abrupt transition point is noted. There is gas and stool noted throughout the colon. An early partial small bowel obstruction is noted. No high-grade or complete obstruction is noted. 2. No free air or abscess identified. The visualized appendix is within normal limits.
[2024-04-15 10:39] LABS: Partial Thromboplastin Ratio 1.2; Partial Thromboplastin Time 32 Seconds (21-31); Prothrombin Time 11.2 Seconds (9.0-12.0)
[2024-04-15] MEDS: INSULIN ASPART PER UNIT CHARGE SC SCH (10:43)
[2024-04-15] MEDS: CHOLECALCIFEROL 25 MCG (1000 UNITS) TAB PO SCH (10:46)
[2024-04-15] MEDS: CEROVITE ADV FORMULA TAB PO SCH (10:46)
[2024-04-15] MEDS: ASPIRIN 81 MG ECTAB PO SCH (10:46)
[2024-04-15] MEDS: METOPROLOL SUCC 25MG EXT REL TAB PO SCH (10:46)
[2024-04-15] MEDS: PANTOprazole 40 MG TAB PO SCH (10:47)
[2024-04-15] MEDS: LEVOTHYROXINE SODIUM 50 MCG TABLET PO SCH (11:07)
[2024-04-15] MEDS: Heparin IV Adult Wt-Based Standard *NO* INITIAL Bolus Protocol IV STA (11:07)
[2024-04-15] MEDS: HEPARIN SODIUM/DEXTROSE 25,000 UNITS/500 ML BAG IV SCH (11:07)
--- NOTE | 2024-04-15 12:01 | History & Physical Bridge Note ---
Date of Service April 15, 2024 History & Physical Bridge Note I have examined the patient, reviewed the History & Physical and in the interval since the performance of the History & Physical I have noted the following changes of clinical significance: no changes noted 88yo M admitted early this AM with SBO. Seen by general surgery, recommending nonop/conservative management. Continue with NPO status, IVF, pain control and antiemetics. NGT if pt begins vomiting. Recommend ambulation. On examination, belly is soft, air is noted in his LLQ ostomy bag. No stool output. Nontender. Lungs are CTAB and heart is RRR. Follow up labs in AM. Appreciate assistance of general surgery. Dr. Espitia updated on plan. Supervising Physician Co-Signing Physician Notes Attending Attestation - Chart reviewed, care plan d/w MARISOL Hobson. I agree with her bridge note documentation. Richard Espitia MD
[2024-04-15] MEDS: dilTIAZem HCL 120 MG CAPCR PO SCH (12:26)
[2024-04-15 17:44] LABS: ANTI-Xa, UFH(UnfractionatedHep 0.67 IU/ml (0.3-0.7)
[2024-04-15] MEDS: SIMVASTATIN 40 MG TAB PO SCH (20:16)
[2024-04-15] MEDS: CYANOCOBALAMIN (B-12) 500 MCG TABLET PO SCH (20:16)
[2024-04-16 06:49] LABS: ANTI-Xa, UFH(UnfractionatedHep 0.84 IU/ml (0.3-0.7)
[2024-04-16 07:50] LABS: Hematocrit (blood only) 43.9 % (42.0-52.0); Hemoglobin 14.2 g/dl (14.0-18.0); Mean Corpuscular Hemoglobin 29.5 pg (25.0-34.0); Mean Corpuscular Hgb Conc 32.3 g/dL (32.0-36.0); Mean Corpuscular Volume 91.3 fL (80.0-100.0); Mean Platelet Volume 8.8 fL (9.4-12.4); Platelet Count 174 K/uL (130-400); RDW Coefficient of Variation 13.6 % (11.5-14.5); Red Blood Count 4.81 M/uL (4.70-6.10); White Blood Count 6.04 K/ul (4.8-10.8)
[2024-04-16 08:07] LABS: BUN Creatinine Ratio 9.7 (10-20); Calcium 8.4 mg/dl (8.6-10.3); Creatinine Clr Calc Pharmacy 58.9 ml/min; Est GFR (African American) 85.9 ml/min; Est GFR (Non-African American) 74.1 ml/min; Potassium 4.2 mmol/L (3.5-5.1)
[2024-04-16] MEDS: SODIUM CHLORIDE 0.9% 1,000 ML IV SCH (09:18)
--- NOTE | 2024-04-16 09:27 | Surgery Progress Note ---
Date of Service April 16, 2024 Assessment & Plan (1) SBO (small bowel obstruction): Plan: begin clears ambulate IVF Admission and Anticipated Discharge Date Admission Date: April 15, 2024 Subjective abdominal pain improved some ileostomy function Review of Systems Constitutional: no fever and no chills Respiratory: no cough and no dyspnea Cardiovascular: no chest pain Gastrointestinal: + abdominal pain and + change in bowel h abits; no nausea and no vomiting Genitourinary: no dysuria Neurologic: no localized weakness and no generalized weakness Psychiatric: no behavioral changes Physical Exam Constitutional: WD/WN, vitals as above Respiratory: normal respiratory effort, lungs clear to auscultation Cardiovascular: RRR, no murmur, no edema Gastrointestinal (Abdomen): Inspection/Auscultation: abdomen normal to inspection and normal bowel sounds; abdomen not distended Percussion/Palpation: abdomen soft; abdomen nontender, no guarding and abdomen not rigid ostomy with some output Skin: no rashes, warm and dry Results & Data Vital Signs (Past 12 Hours) Vital Signs Temp Pulse Resp BP Pulse Ox O2 Del Method 04/16/24 07:41 36.4 C L 73 16 148/94 H 96 Room Air
[2024-04-16] MEDS ORDERED: Nursing to Pharmacy Communication SCH (09:45)
[2024-04-16] MEDS: INSULIN ASPART PER UNIT CHARGE SC SCH (12:16)
--- NOTE | 2024-04-16 15:56 | Hospitalist Progress Note ---
Date of Service April 16, 2024 Assessment & Plan (1) History of small bowel obstruction: (2) Hypothyroidism: (3) Diabetes mellitus, type 2: (4) Hypertension: (5) Hyperlipidemia: (6) Atrial fibrillation: (7) Iron deficiency: (8) GERD (gastroesophageal reflux disease): (9) SBO (small bowel obstruction): Acacia Fitzgerald is a 88M w/ PMH of multiple SBOs, hypothyroidism, CVA, DM2, HTN, HLD, A Fib on anticoagulation, iron deficiency anemia. GERD, and gout who presents for evaluation of abdominal pain and is being admitted for SBO. 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 There is relatively decompressed terminal ileum. No abrupt transition point is noted. There is gas and stool noted throughout the colon. An early partial small bowel obstruction is noted. No high-grade or complete obstruction is noted. - Hemodynamically stable, labs unremarkable -Surgery on board Patient has been conservatively managed. Patient feels better today. Has bowel movements. He is hungry. Started on a clear liquid diet Chronic Conditions - HLD: Continue statin - AFib: Continue Diltiazem and Metoprolol. On heparin drip - GERD: Continu Pantoprazole - DM2: BSG Q4h while NPO, SSI ordered, home meds held - Hypothyroidism: Continue Levothyroxine - HTN: Continue home antihypertensives Code status: DNR/DNI DVT ppx: Heparin drip Isolation: None Dispo:Med/Surg Admission and Anticipated Discharge Date Admission Date: April 15, 2024 Subjective Patient feels better today. His belly is less distended. No abdominal pain. He is very hungry. Review of Systems Review of Systems: All systems reviewed & are unremarkable except as noted in Subjective Physical Exam Physical Exam: General: Awake, conversant Heart: S1, S2/regular rate and rhythm, no murmur rubs or gallops Lungs: Clear to auscultation bilaterally. Normal effort Abdomen: Soft/nontender/nondistended. Active bowel sounds. Abdomen is not distended. Colostomy bag in place. No hepatosplenomegaly Extremities: No clubbing/cyanosis. No edema Behavior: Appropriate, cooperative Results & Data Results & Data Vital Signs (Past 12 Hours) Vital Signs Temp Pulse Resp BP Pulse Ox O2 Del Method 04/16/24 15:13 36.4 C L 75 16 139/94 96 Room Air 04/16/24 07:41 36.4 C L 73 16 148/94 H 96 Room Air 04/16/24 07:30 Room Air Laboratory Results Abnormal lab results 04/16/24 04/16/24 04/16/24 Range/Units 05:46 07:35 11:43 MPV 8.8 L (9.4-12.4) fL Heparin Anti-Xa, Unfract 0.84 H* (0.3-0.7) IU/ml BUN/Creatinine Ratio 9.7 L (10-20) POC Glucose 117 H (70-99) mg/dl Calcium 8.4 L (8.6-10.3) mg/dl PG Care Time/CCT Total # of Minutes Spent Total Time Spent with Patient: Total time spent is greater than 50% in coordination of care (as documented) at patient's floor/unit and/or counseling patient: Coding Level of Care Code 09088 SUB INP/OBS CARE 2/35MIN Diagnoses History of small bowel obstruction Z87.19 Hypothyroidism E03.9 Diabetes mellitus, type 2 E11.9 Hypertension I10 Hyperlipidemia E78.5 Atrial fibrillation I48.91 Iron deficiency E61.1 GERD (gastroesophageal reflux disease) K21.9 SBO (small bowel obstruction) K56.609
[2024-04-16] MEDS: dilTIAZem HCL 120 MG CAPCR PO SCH (20:07)
--- NOTE | 2024-04-17 06:47 | Surgery Progress Note ---
Date of Service April 17, 2024 Assessment & Plan (1) SBO (small bowel obstruction): Plan: advance to fulls ambulate Admission and Anticipated Discharge Date Admission Date: April 15, 2024 Subjective a little more confused this AM no pain Review of Systems Constitutional: no fever and no chills Respiratory: no cough and no dyspnea Cardiovascular: no chest pain Gastrointestinal: no abdominal pain, no nausea and no vomiting Genitourinary: no dysuria Integumentary: no problem reported Neurologic: no localized weakness and no generalized weakness Psychiatric: no behavioral changes Physical Exam Constitutional: WD/WN, vitals as above ENMT: external ear and nose normal, oropharynx normal Respiratory: normal respiratory effort, lungs clear to auscultation Cardiovascular: RRR, no murmur, no edema Gastrointestinal (Abdomen): Inspection/Auscultation: abdomen normal to inspection and normal bowel sounds; abdomen not distended Percussion/Palpation: abdomen soft; abdomen nontender, no guarding and abdomen not rigid ostomy with gas Musculoskeletal: Head/Neck/Chest: normocephalic and head atraumatic Results & Data Vital Signs (Past 12 Hours) Vital Signs Temp Pulse Resp BP Pulse Ox O2 Del Method 04/16/24 20:09 36.4 C L 73 18 139/91 96 Room Air
[2024-04-17 07:10] LABS: Basophils # (auto) 0.04 K/uL (0.00-0.20); Basophils % (auto) 0.7 %; Eosinophils # (auto) 0.19 K/uL (0.00-0.50); Eosinophils % (auto) 3.3 %; Hematocrit (blood only) 41.8 % (42.0-52.0); Hemoglobin 14.1 g/dl (14.0-18.0); Immature Granulocytes # (auto) 0.02 K/uL (0.01-0.20); Immature Granulocytes % (auto) 0.3 %; Lymphocytes # (auto) 0.89 K/uL (1.20-3.40); Lymphocytes % (auto) 15.5 %; Mean Corpuscular Hemoglobin 29.8 pg (25.0-34.0); Mean Corpuscular Hgb Conc 33.7 g/dL (32.0-36.0); Mean Corpuscular Volume 88.4 fL (80.0-100.0); Mean Platelet Volume 9.1 fL (9.4-12.4); Monocytes # (auto) 0.58 K/uL (0.11-0.59); Monocytes % (auto) 10.1 %; Neutrophils # (auto) 4.04 K/uL (1.40-6.50); Neutrophils % (auto) 70.1 %; Platelet Count 187 K/uL (130-400); RDW Coefficient of Variation 13.5 % (11.5-14.5); RDW Standard Deviation 43.8 fL (36.4-46.3); Red Blood Count 4.73 M/uL (4.70-6.10); White Blood Count 5.76 K/ul (4.8-10.8)
[2024-04-17 07:24] LABS: ANTI-Xa, UFH(UnfractionatedHep 0.54 IU/ml (0.3-0.7)
[2024-04-17 07:25] LABS: BUN Creatinine Ratio 10.1 (10-20); Calcium 8.6 mg/dl (8.6-10.3); Creatinine Clr Calc Pharmacy 55.3 ml/min; Est GFR (African American) 79.6 ml/min; Est GFR (Non-African American) 68.7 ml/min; Potassium 3.7 mmol/L (3.5-5.1)
--- NOTE | 2024-04-17 08:35 | CT Scan Report ---
HEAD CT NONCONTRAST CT DOSE: 663.26 mGy.cm HISTORY: difficulty getting words out, eval for stroke TECHNIQUE: Multiaxial CT images of the head were performed without the use of intravenous contrast. A utomated exposure control was utilized for this study. A dose lowering technique was utilized adheri ng to the principles of ALARA. Comparison: Brain MRI 12/17/2022. Findings: The paranasal sinuses and mastoid air cells are clear. The calvarium and skull base are int act. There is no mass, hematoma, midline shift, acute infarct. White matter hypodensity is nonspecifi c but suggestive of microvascular ischemic change. The ventricles and sulci demonstrate mild age-rela blanca involutional changes. Old left parietal infarct again noted. Impression: No significant change compared to the prior study. No acute intracranial abnormality. ACT 112: Negative or not required by law. Electronically signed by: Guillermo Mccollum M.D. 04/17/2024 8:32 AM
[2024-04-17] MEDS ORDERED: PHARMACIST DISCHARGE MED REC CONSULT PRN (09:02)
[2024-04-17] MEDS: OPTIRAY 320 125ml IV ONE (09:37)
--- NOTE | 2024-04-17 09:51 | CT Scan Report ---
HEAD & NECK CTA HISTORY: expressive phasia worse, stroke eval TECHNIQUE: Multiaxial CT images of the head were performed following the intravenous administration o f contrast to evaluate the major cerebral vessels. Multiaxial CT images of the neck were also perform ed following the intravenous administration of contrast to evaluate the major cervical vessels. 3D/RI P images were also obtained. Sagittal and coronal reformats were reviewed. A dose lowering technique was utilized adhering to the principles of ALARA. COMPARISON: Head CT 04/17/2024. Head and neck CTA 05/28/2022. FINDINGS: There is no mass, hematoma, midline shift, or acute infarct. Visualized intracranial internal carotid arteries, distal vertebral arteries, and basilar artery are widely patent. There is no significant s tenosis, occlusion, or aneurysm seen within the bilateral ACAs or bellman captain. Mild multifocal narrowing wit hin the distal left MCA branch, unchanged. The right MCA is widely patent. Moderate calcified plaque within the bilateral carotid siphons, unchanged.. The major dural venous sinuses are patent. The aortic arch and proximal great vessels are widely patent. There is no significant stenosis or o cclusion identified within the bilateral common carotid, internal carotid, or vertebral arteries. Sta ble short segment dissection within the proximal right internal carotid artery. IMPRESSION: 1. Mild multifocal narrowing within the distal left MCA branch, unchanged. Otherwise, no significant stenosis, occlusion, or aneurysm within the [place]. 2. No significant stenosis or occlusion identified within the carotid or vertebral arteries. 3. 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 ACT 112: Negative or not required by law. Electronically signed by: Guillermo Mccollum M.D. 04/17/2024 9:49 AM
--- NOTE | 2024-04-17 09:51 | CT Scan Report ---
HEAD & NECK CTA HISTORY: expressive phasia worse, stroke eval TECHNIQUE: Multiaxial CT images of the head were performed following the intravenous administration o f contrast to evaluate the major cerebral vessels. Multiaxial CT images of the neck were also perform ed following the intravenous administration of contrast to evaluate the major cervical vessels. 3D/RI P images were also obtained. Sagittal and coronal reformats were reviewed. A dose lowering technique was utilized adhering to the principles of ALARA. COMPARISON: Head CT 04/17/2024. Head and neck CTA 05/28/2022. FINDINGS: There is no mass, hematoma, midline shift, or acute infarct. Visualized intracranial internal carotid arteries, distal vertebral arteries, and basilar artery are widely patent. There is no significant s tenosis, occlusion, or aneurysm seen within the bilateral ACAs or nat instructor. Mild multifocal narrowing wit hin the distal left MCA branch, unchanged. The right MCA is widely patent. Moderate calcified plaque within the bilateral carotid siphons, unchanged.. The major dural venous sinuses are patent. The aortic arch and proximal great vessels are widely patent. There is no significant stenosis or o cclusion identified within the bilateral common carotid, internal carotid, or vertebral arteries. Sta ble short segment dissection within the proximal right internal carotid artery. IMPRESSION: 1. Mild multifocal narrowing within the distal left MCA branch, unchanged. Otherwise, no significant stenosis, occlusion, or aneurysm within the [place]. 2. No significant stenosis or occlusion identified within the carotid or vertebral arteries. 3. 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 ACT 112: Negative or not required by law. Electronically signed by: Guillermo Mccollum M.D. 04/17/2024 9:49 AM
--- NOTE | 2024-04-17 09:57 | Neurology Consultation ---
Date of Consultation April 17, 2024 Assessment & Plan (1) CVA (cerebral vascular accident): (2) Wernicke's aphasia: (3) H/O: stroke with residual effects: Plan 88-year-old male with a history of a left posterior MCA/parietal lobe infarct occurring in May 2022 presenting with aphasia. Subsequently identified small microhemorrhage within the left cerebellum in December 2023. He has continued to have difficulty with residual aphasia related to his previous stroke and was discharged from speech therapy this past December. He currently exhibits impairment of comprehension, naming, repetition, and reading. He makes paraphasic errors and neologisms. He does not have an associated hemiparesis. His signs and symptoms seem consistent with a Wernicke's aphasia (receptive aphasia). At this point, I am uncertain to what extent is observed aphasia is actually new. He could be experiencing some recrudescence of symptoms related to his chronic left parietal stroke. On the other hand, I am unable to completely exclude another acute left MCA distribution infarct. Would recommend a noncontrast brain MRI. CTA of the head and neck revealed no significant stenosis or occlusion within the carotid or vertebral arteries. 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 He has chronic multifocal narrowing within the distal left MCA branch that is unchanged as well. This lesion would not be amenable to specific intervention. This patient does have a history of atrial fibrillation for which he has been on Xarelto. He is also prescribed aspirin 81 mg/day which is appropriate in light of the intracranial stenosis. Both of these medications are appropriate. The small left cerebellar microhemorrhage identified on MRI done this past December is not a contraindication to combined use of these medications. Further, there is no evidence of acute hemorrhage on recent CT of the head. Patient may continue with aspirin 81 mg/day and heparin drip. Xarelto may be restarted at the discretion of the surgical and hospitalist team depending on the status of his small bowel obstruction. He may continue with Zocor at the current dosage. Other than modestly elevated triglycerides, a lipid panel from this past July looked very good, LDL was 23 at that time. Agree with speech therapy consultation. (He was discharged from outpatient speech therapy this past December.) Please call with any questions. History of Present Illness Reason for Consultation: aphasia Requesting Physician: Magaly Attending Physician: Maira Lopez MD History of Present Illness The patient is an 88-year-old male with a history of atrial fibrillation, on Xarelto, diabetes mellitus, hypertension, hyperlipidemia, migraine, acute left parietal lobe infarct in May 2022 with associated aphasia, small left cerebellar microhemorrhage identified on subsequent MRI in December 2022, history of multiple abdominal surgeries, adhesions, admitted with recurrent small bowel obstruction on April 15. I was contacted this morning by the hospitalist physician as patient exhibited altered mental status, difficulty with word finding, associated frustration this morning. A CT of the head was negative for hemorrhage or obvious acute process. The chronic left parietal lobe infarct is observed. CTA of the head and neck reveals unchanged multifocal narrowing within the distal left MCA branch as well as a chronic short segment dissection within the proximal right internal carotid artery. The patient has a significant receptive aphasia this morning and is unable to elaborate on his current symptoms. See examination below for further details. I see that he had been participating with outpatient speech therapy earlier this year, was discharged this past December, in the context of residual aphasia related to his previous stroke. Allergies Allergy/AdvReac Type Severity Reaction Status Date / Time tetanus toxoid, adsorbed Allergy Intermediate BLISTERS Verified 04/15/24 02:08 AND EYES SWELLING hydromorphone AdvReac Intermediate HALLUCINATI Verified 04/15/24 02:08 ONS lorazepam AdvReac Intermediate HALLUCINATI Verified 04/15/24 02:08 ONS Home Medications Medication Instructions Recorded Confirmed Type mecobalamin (vitamin B12) 1,000 1,000 mcg PO QPM 07/23/20 04/15/24 History mcg chewable tablet cholecalciferol (vitamin D3) 50 50 mcg PO QAM 12/10/20 04/15/24 History mcg (2,000 unit) capsule [id number] 300 mcg-K 60 1 tab PO QAM 12/10/20 04/15/24 History mcg-lycop 600 mcg-lutein 300 mcg tablet (Centrum Silver Men) aspirin 81 mg tablet,delayed 81 mg PO DAILY #30 tabs 05/29/22 04/15/24 Rx release (Adult Low Dose Aspirin) metformin 500 mg tablet,extended 500 mg PO QPM #90 tabs 02/12/23 04/15/24 Rx release 24 hr empagliflozin 25 mg tablet 25 mg PO DAILY #90 tabs 08/13/23 04/15/24 Rx glipizide 5 mg tablet, extended 5 mg PO QAM 08/16/23 04/15/24 History release 24 hr pantoprazole 40 mg tablet,delayed 40 mg PO BID 08/16/23 04/15/24 History release rivaroxaban 20 mg tablet (Xarelto) 20 mg PO QAM #90 tabs 10/25/23 04/15/24 Rx metoprolol succinate 50 mg 75 mg (1.5 x 50 mg) PO DAILY #120 01/13/24 04/15/24 Rx tablet,extended release 24 hr tabs levothyroxine 50 mcg tablet 50 mcg PO . ABOUT LUNCHTIME #90 03/28/24 04/15/24 Rx tabs simvastatin 40 mg tablet 40 mg PO PM #90 tabs 03/28/24 04/15/24 Rx diltiazem HCl 120 mg 120 mg PO DAILY #90 caps 04/04/24 04/15/24 Rx capsule,extended release 24 hr (Cartia XT) Patient History Medical History Cerebellar hemorrhage COVID-19 SBO (small bowel obstruction) CKD (chronic kidney disease) Hypertrophy of both inferior nasal turbinates Chronic rhinitis Anemia Rotator cuff tear Per MRI 02/2020. Followed by orthopedics. Declined operative management. Small bowel obstruction 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 History of colon cancer 1978 Surgical History H/O hernia repair Hx of abdominal surgery bowel obstruction History of total right hip replacement Hx of vasectomy History of colostomy History of bowel resection for colon cancer History of colonoscopy History of esophagogastroduodenoscopy (EGD) 06/2021 Hiatal hernia small, gastritis Status post Mohs surgery for basal cell carcinoma History of root canal procedure History of wisdom tooth extraction History of tonsillectomy and adenoidectomy History of phacoemulsification of cataract of both eyes with intraocular lens implantation History of cardioversion x2 Family History Father , age 91 Hypertension Diabetes Mother , age 64 metastatic breast cancer Breast cancer Ovarian cancer Brother Colorectal cancer Other Coronary heart disease No family history of adverse response to anesthesia Denies family history of Prostate cancer Crohn's disease Myocardial infarction Lung cancer Inflammatory bowel disease Social History Smoking Status: Former smoker Tobacco Type: Pipe Age Started Using Tobacco: 22; Age Quit Using Tobacco: 52; Second Hand Exposure: No; Do You Dip or Chew Tobacco: No; Hx Alcohol Use: No Hx Substance Use: No Preferred Language: Occitan Communication Ability: Effective Visual Impairment: Diminished Hearing Ability: Normal 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 Required: No Beliefs That Will Affect Care: None marital status: Current Living Situation: Spouse current occupational 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, [employer] How many Children do You have: 1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 Feels Safe at Home: Yes Childhood Exposure to Second-Hand Smoke: Yes (father smoked in home ) Diet: regular Diet Comment: low fiber caffeine: Yes (drinks coffee daily about half a cup ) Dental Care, Regularly: Yes Physical Activity Frequency: 3-4 Times per Week Physical Activity Frequency Comment: 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 Seatbelt Use: always Sunscreen Use: No (says he does cover up well ) Do you think of yourself as: straight/heterosexual Assistive Devices: Cane and Glasses Review of Systems Review of Systems: Unobtainable due to cognitive status Exam (Neuro) Constitutional: well developed; no acute distress Eyes: normal visual ness by confrontation, PERRL and EOM intact bilaterally; no nystagmus Neurologic: Attention: Span Intact and Concentration Intact Language: negative Naming Objects or Repeating Phrases Speech Fluency: Limited Comprehension Speech Aphasia: Wernicke's Aphasia (Patient exhibits impaired repetition, naming, and reading. He makes paraphasic errors and neologisms.) Cranial Nerves: Normal II, III, IV, , V, VII, VIII, IX, X, XI and XII Motor Strength: Normal Lower Extremities and Normal Upper Extremities Motor Tone: Normal Lower Extremities and Normal Upper Extremities Muscle Bulk/Involuntary Movements: No Involuntary Movements; negative Muscle Atrophy Sensation: Light Touch Intact, Pain/Temperature Intact, Vibration Intact and Proprioception Intact Coordination: Normal; negative Limited Balance, Finger-Nose Abnormal or Heel-[place] Abnormal Deep Tendon Reflexes: Rt Triceps: 2+, Lt Triceps: 2+, Rt Biceps: 2+, Lt Biceps: 2+, Rt Brachioradialis: 2+, Lt Brachioradialis: 2+, Rt Patellar: 2+, Lt Patellar: 2+, Rt Ankle: 1+ and Lt Ankle: 1+ Gait: Normal Station and Gait Results & Data Vital Signs (Past 12 Hours) Vital Signs Temp Pulse Resp BP Pulse Ox O2 Del Method 04/17/24 07:51 36.8 C 72 20 155/83 H 98 Room Air 04/17/24 07:15 Room Air Laboratory Results WBC 5.76, hemoglobin 14.1, hematocrit 41.8, MCV 88.4, platelet count 187, sodium 139, potassium 3.7, BUN 10, creatinine 0.99, glucose 123, calcium 8.6. Lipid panel from July 2023 reviewed. Triglycerides 175, cholesterol 96, LDL 23, VLDL 35, HDL 38. Vitamin B12 level from February 2024 was 567, a TSH was 1.99. Diagnostic Findings I independently reviewed the previous brain MRIs done in May 2022 in December 2022, as well as the recent CT of the head and CTA of the head and neck done this morning. Imaging is as described in the HPI. An electrocardiogram completed yesterday revealed atrial fibrillation with rapid ventricular response. An echocardiogram completed May 2022 revealed normal left ventricular size and systolic function, no regional wall motion abnormalities, severe biatrial dilation, sclerotic aortic valve, moderate mitral regurgitation, moderate tricuspid regurgitation, mild pulmonary hypertension. Coding Level of Care Code 68379 INT INP/OBS CARE 3/75MIN Diagnoses CVA (cerebral vascular accident) I63.9 Wernicke's aphasia F80.2 H/O: stroke with residual effects I69.30 Time Spent (min) 90 Comment Total time includes patient contact, chart review, counseling, note preparation
--- NOTE | 2024-04-17 14:30 | Hospitalist Progress Note ---
Date of Service April 17, 2024 Assessment & Plan (1) History of small bowel obstruction: (2) Hypothyroidism: (3) Diabetes mellitus, type 2: (4) Hypertension: (5) Hyperlipidemia: (6) Atrial fibrillation: (7) Iron deficiency: (8) GERD (gastroesophageal reflux disease): (9) SBO (small bowel obstruction): Acacia Fitzgerald is a 88M w/ PMH of multiple SBOs, hypothyroidism, CVA, DM2, HTN, HLD, A Fib on anticoagulation, iron deficiency anemia. GERD, and gout who presents for evaluation of abdominal pain and is being admitted for SBO. 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 He has a history of aphasia and has difficulty bringing up the right words. However this morning his aphasia was worse and he also had some confusion. Head CT negative CTA head and neck revealed no significant stenosis or occlusion within the carotid or vertebral arteries. 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 Neurology consulted MRI brain ordered, pending Continue aspirin. Xarelto has been switched to heparin drip due to bowel obstruction. Continue for now. No bleed in head CT. 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 There is relatively decompressed terminal ileum. No abrupt transition point is noted. There is gas and stool noted throughout the colon. An early partial small bowel obstruction is noted. No high-grade or complete obstruction is noted. - Hemodynamically stable, labs unremarkable -Surgery on board Patient has been conservatively managed. Continues to feel better. Advance to full liquid diet Chronic Conditions - HLD: Continue statin - AFib: Continue Diltiazem and Metoprolol. On heparin drip - GERD: Continu Pantoprazole - DM2: home meds held - Hypothyroidism: Continue Levothyroxine - HTN: Continue home antihypertensives Code status: DNR/DNI DVT ppx: Heparin drip Isolation: None Dispo:Med/Surg Admission and Anticipated Discharge Date Admission Date: April 15, 2024 Subjective I was called by the nurse this morning. Nurse was concerned about worsening aphasia and some confusion. I ordered a stat head CT which came back negative. Evaluated the patient. Patient indeed had a change from yesterday and was a little more aphasic. However during my encounter, I noticed that he gained some fluency in his speech although he was still struggling to get the right words out. He has not been sleeping well in the hospital. He has not had any bowel movements yet. However his belly is not painful or distended anymore. Review of Systems Review of Systems: All systems reviewed & are unremarkable except as noted in Subjective Physical Exam Physical Exam: General: Awake, conversant Heart: S1, S2/regular rate and rhythm, no murmur rubs or gallops Lungs: Clear to auscultation bilaterally. Normal effort Abdomen: Soft/nontender/nondistended. Active bowel sounds. Abdomen is not distended. Colostomy bag in place. No hepatosplenomegaly Extremities: No clubbing/cyanosis. No edema Behavior: Appropriate, cooperative Results & Data Results & Data Vital Signs (Past 12 Hours) Vital Signs Temp Pulse Resp BP Pulse Ox O2 Del Method 04/17/24 07:51 36.8 C 72 20 155/83 H 98 Room Air 04/17/24 07:15 Room Air Laboratory Results Abnormal lab results 04/16/24 04/17/24 04/17/24 Range/Units 20:05 06:30 07:19 Hct 41.8 L (42.0-52.0) % MPV 9.1 L (9.4-12.4) fL Lymph # (Auto) 0.89 L (1.20-3.40) K/uL Glucose 123 H (70-99(Fasting)) mg/dl POC Glucose 113 H 100 H (70-99) mg/dl 04/17/24 Range/Units 11:28 Hct (42.0-52.0) % MPV (9.4-12.4) fL Lymph # (Auto) (1.20-3.40) K/uL Glucose (70-99(Fasting)) mg/dl POC Glucose 207 H (70-99) mg/dl Diagnostic Findings Head CT 04/17/24 07:[address] DOSE: 663.26 mGy.cm HISTORY: difficulty getting words out, eval for stroke TECHNIQUE: Multiaxial CT images of the head were performed without the use of intravenous contrast. Automated exposure control was utilized for this study. A dose lowering technique was utilized adhering to the principles of ALARA. Comparison: Brain MRI 12/17/2022. Findings: The paranasal sinuses and mastoid air cells are clear. The calvarium and skull base are intact. There is no mass, hematoma, midline shift, acute infarct. White matter hypodensity is nonspecific but suggestive of microvascular ischemic change. The ventricles and sulci demonstrate mild age-related involutional changes. Old left parietal infarct again noted. Impression: No significant change compared to the prior study. No acute intracranial abnormality. ACT 112: Negative or not required by law. Electronically signed by: Guillermo Mccollum M.D. 04/17/2024 8:32 AM Head CTA 04/17/24 08:47 HEAD & NECK CTA HISTORY: expressive phasia worse, stroke eval TECHNIQUE: Multiaxial CT images of the head were performed following the intravenous administration of contrast to evaluate the major cerebral vessels. Multiaxial CT images of the neck were also performed following the intravenous administration of contrast to evaluate the major cervical vessels. 3D/MIP images were also obtained. Sagittal and coronal reformats were reviewed. A dose lowering technique was utilized adhering to the principles of ALARA. COMPARISON: Head CT 04/17/2024. Head and neck CTA 05/28/2022. FINDINGS: There is no mass, hematoma, midline shift, or acute infarct. Visualized intracranial internal carotid arteries, distal vertebral arteries, and basilar artery are widely patent. There is no significant stenosis, occlusion, or aneurysm seen within the bilateral ACAs or crew attendant. Mild multifocal narrowing within the distal left MCA branch, unchanged. The right MCA is widely patent. Moderate calcified plaque within the bilateral carotid siphons, unchanged.. The major dural venous sinuses are patent. The aortic arch and proximal great vessels are widely patent. There is no significant stenosis or occlusion identified within the bilateral common carotid, internal carotid, or vertebral arteries. Stable short segment dissection within the proximal right internal carotid artery. IMPRESSION: 1. Mild multifocal narrowing within the distal left MCA branch, unchanged. Otherwise, no significant stenosis, occlusion, or aneurysm within the [place]. 2. No significant stenosis or occlusion identified within the carotid or vertebral arteries. 3. 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 ACT 112: Negative or not required by law. Electronically signed by: Guillermo Mccollum M.D. 04/17/2024 9:49 AM Neck CTA 04/17/24 08:48 HEAD & NECK CTA HISTORY: expressive phasia worse, stroke eval TECHNIQUE: Multiaxial CT images of the head were performed following the intravenous administration of contrast to evaluate the major cerebral vessels. Multiaxial CT images of the neck were also performed following the intravenous administration of contrast to evaluate the major cervical vessels. 3D/MIP images were also obtained. Sagittal and coronal reformats were reviewed. A dose lowering technique was utilized adhering to the principles of ALARA. COMPARISON: Head CT 04/17/2024. Head and neck CTA 05/28/2022. FINDINGS: There is no mass, hematoma, midline shift, or acute infarct. Visualized intracranial internal carotid arteries, distal vertebral arteries, and basilar artery are widely patent. There is no significant stenosis, occlusion, or aneur ysm seen within the bilateral ACAs or crew attendant. Mild multifocal narrowing within the distal left MCA branch, unchanged. The right MCA is widely patent. Moderate calcified plaque within the bilateral carotid siphons, unchanged.. The major dural venous sinuses are patent. The aortic arch and proximal great vessels are widely patent. There is no significant stenosis or occlusion identified within the bilateral common carotid, internal carotid, or vertebral arteries. Stable short segment dissection within the proximal right internal carotid artery. IMPRESSION: 1. Mild multifocal narrowing within the distal left MCA branch, unchanged. Otherwise, no significant stenosis, occlusion, or aneurysm within the [place]. 2. No significant stenosis or occlusion identified within the carotid or vertebral arteries. 3. 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 ACT 112: Negative or not required by law. Electronically signed by: Guillermo Mccollum M.D. 04/17/2024 9:49 AM PG Care Time/CCT Total # of Minutes Spent Total Time Spent with Patient: Total time spent is greater than 50% in coordination of care (as documented) at patient's floor/unit and/or counseling patient: Coding Level of Care Code 13814 SUB INP/OBS CARE 2/35MIN Diagnoses History of small bowel obstruction Z87.19 Hypothyroidism E03.9 Diabetes mellitus, type 2 E11.9 Hypertension I10 Hyperlipidemia E78.5 Atrial fibrillation I48.91 Iron deficiency E61.1 GERD (gastroesophageal reflux disease) K21.9 SBO (small bowel obstruction) K56.609
--- NOTE | 2024-04-17 15:25 | Magnetic Resonance Report ---
Brain MRI WITHOUT CONTRAST HISTORY: expressive phasia worse, stroke eval TECHNIQUE: Multiplanar multisequence MRI of the brain was performed without the use of contrast. COMPARISON STUDY: Brain MRI 12/17/2022. FINDINGS: There is no mass, hematoma, midline shift, or acute infarct. The paranasal sinuses are clark r. The mastoid air cells are clear. The ventricles and sulci demonstrate mild age-related involutiona l changes. Scattered foci of T2 hyperintensity seen within the periventricular and subcortical white matter are nonspecific but suggestive of mild microvascular ischemic changes. The major vascular flow voids at the skull base are well-maintained. Old left parietal lobe infarct again noted. Prior bilat eral lens replacement. Subcentimeter focus of susceptibility artifact again noted within the left cer ebellar hemisphere. This remains unchanged. This may represent a punctate focus of calcification. IMPRESSION: No significant change compared to the prior study. No acute intracranial abnormality. ACT 112: Negative or not required by law. Electronically signed by: Guillermo Mccollum M.D. 04/17/2024 3:22 PM
--- NOTE | 2024-04-17 16:45 | XCELERA ---
[id number]
[2024-04-18 06:47] LABS: BUN Creatinine Ratio 8.8 (10-20); Calcium 8.6 mg/dl (8.6-10.3); Est GFR (African American) 67.1 ml/min; Est GFR (Non-African American) 57.9 ml/min; Potassium 3.5 mmol/L (3.5-5.1)
[2024-04-18 07:45] LABS: Estimated Average Glucose 160 mg/dl; Hemoglobin A1C 7.2 % (4.5-5.6)
--- NOTE | 2024-04-18 08:58 | Surgery Progress Note ---
Date of Service April 18, 2024 Assessment & Plan (1) SBO (small bowel obstruction): Plan: continue full liquids for this am ambulate one time dose of miralax continue medical management Dr. Cortez has seen and examined patient. Admission and Anticipated Discharge Date Admission Date: April 15, 2024 Subjective feeling good tolerating full liquids, wants more very small bowel movement, gas in colostomy no abdominal pain or bloating no n,v Physical Exam Constitutional: WD/WN, vitals as above cooperative and comfortable; no acute distress and not ill appearing Respiratory: normal respiratory effort; no respiratory distress Gastrointestinal (Abdomen): Inspection/Auscultation: + visible herniation (parastomal hernia, soft, nontender) and + abdominal surgical scar (midline laparotomy); abdomen not distended Percussion/Palpation: abdomen soft; abdomen nontender, no guarding, abdomen not rigid and abdomen not firm LLQ ostomy with gas and small formed stool, ostomy pink and prolapsed (baseline), no necrosis Skin: no rashes, warm and dry Psychiatric: A+Ox3, euthymic affect Results & Data Vital Signs (Past 12 Hours) Vital Signs Temp Pulse Resp BP Pulse Ox O2 Del Method 04/18/24 07:13 36.6 C 70 18 121/76 96 Room Air 04/18/24 07:10 Room Air Laboratory Results 04/18/24 04/18/24 04/17/24 Range/Units 07:46 05:55 20:48 Heparin Anti-Xa, Unfract 0.50 (0.3-0.7) IU/ml Sodium 138 (136-145) mmol/L Potassium 3.5 (3.5-5.1) mmol/L Chloride 106 (98-107) mmol/L Carbon Dioxide 27 (21-32) mmol/L Anion Gap 5 (3-11) BUN 10 (6-23) mg/dl Creatinine 1.14 (0.6-1.4) mg/dl Est Cr Clr Drug Dosing 48.0 ml/min Est GFR ( Amer) 67.1 ml/min Est GFR (Non-Af Amer) 57.9 ml/min BUN/Creatinine Ratio 8.8 L (10-20) Glucose 135 H (70-99(Fasting)) mg/dl POC Glucose 132 H 159 H (70-99) mg/dl Estimat Average Glucose 160 mg/dl Hemoglobin A1c 7.2 H (4.5-5.6) % Calcium 8.6 (8.6-10.3) mg/dl Triglycerides 93 (0-150) mg/dl Cholesterol 92 (0-200) mg/dl LDL Cholesterol, Calc 27 mg/dl VLDL Cholesterol, Calc 19 (0-30) mg/dl HDL Cholesterol 46 mg/dl Cholesterol/HDL Ratio 2.0 (0-5) 04/17/24 04/17/24 Range/Units 16:33 11:28 Heparin Anti-Xa, Unfract (0.3-0.7) IU/ml Sodium (136-145) mmol/L Potassium (3.5-5.1) mmol/L Chloride (98-107) mmol/L Carbon Dioxide (21-32) mmol/L Anion Gap (3-11) BUN (6-23) mg/dl Creatinine (0.6-1.4) mg/dl Est Cr Clr Drug Dosing ml/min Est GFR ( Amer) ml/min Est GFR (Non-Af Amer) ml/min BUN/Creatinine Ratio (10-20) Glucose (70-99(Fasting)) mg/dl POC Glucose 151 H 207 H (70-99) mg/dl Estimat Average Glucose mg/dl Hemoglobin A1c (4.5-5.6) % Calcium (8.6-10.3) mg/dl Triglycerides (0-150) mg/dl Cholesterol (0-200) mg/dl LDL Cholesterol, Calc mg/dl VLDL Cholesterol, Calc (0-30) mg/dl HDL Cholesterol mg/dl Cholesterol/HDL Ratio (0-5)
[2024-04-18] MEDS: POLYETHYLENE (MIRALAX) 17 GM PACK PO STA (10:05)
--- NOTE | 2024-04-18 16:06 | Hospitalist Progress Note ---
Date of Service April 18, 2024 Assessment & Plan (1) History of small bowel obstruction: (2) Hypothyroidism: (3) Diabetes mellitus, type 2: (4) Hypertension: (5) Hyperlipidemia: (6) Atrial fibrillation: (7) Iron deficiency: (8) GERD (gastroesophageal reflux disease): (9) SBO (small bowel obstruction): Acacia Fitzgerald is a 88M w/ PMH of multiple SBOs, hypothyroidism, CVA, DM2, HTN, HLD, A Fib on anticoagulation, iron deficiency anemia. GERD, and gout who presents for evaluation of abdominal pain and is being admitted for SBO. 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 He has a history of aphasia and has difficulty bringing up the right words. However on 04/17 his aphasia was worse and he also had some confusion. Head CT negative CTA head and neck revealed no significant stenosis or occlusion within the carotid or vertebral arteries. 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 MRI brain negative Echocardiogram unremarkable Neurology consulted This is most likely not a stroke but rather an exacerbation of his previous aphasia due to lack of sleep/stress/anxiety Continue aspirin. Will switch back to Xarelto tonight. Xarelto dose has been reduced to 15 mg daily due to lower GFR Continue Zocor Lipid panel reviewed. Fairly controlled. A1c 7.2. Speech consulted Small Bowel Obstruction Hx of multople abdominal surgeries/ostomy in LLQ - Patient w/ history of multiple SBOs (10+) a/w extensive abdominal surgeries/adhesions - Presented d/t increasing abdominal cramping/change in ostomy output, no nausea/emesis/fever - CTAP: There is mild to moderate small bowel distention with associated air- fluid levels. There is relatively decompressed terminal ileum. No abrupt transition point is noted. There is gas and stool noted throughout the colon. An early partial small bowel obstruction is noted. No high-grade or complete obstruction is noted. - Hemodynamically stable, labs unremarkable -Surgery on board Patient has been conservatively managed. Continues to feel better. Continue full liquid diet. MiraLAX ordered. Patient has been encouraged to ambulate. Chronic Conditions - HLD: Continue statin - AFib: Continue Diltiazem and Metoprolol. On heparin drip - GERD: Continu Pantoprazole - DM2: home meds held. A1c 7.2. - Hypothyroidism: Continue Levothyroxine - HTN: Continue home antihypertensives Code status: DNR/DNI DVT ppx: Heparin drip, to be switched to Xarelto tonight Admission and Anticipated Discharge Date Admission Date: April 15, 2024 Subjective Patient feels better today. Aphasia is back to baseline. Has not had a bowel movement yet. Still on a full liquid diet. No worsened abdominal pain. Review of Systems Review of Systems: All systems reviewed & are unremarkable except as noted in Subjective Physical Exam Physical Exam: General: Awake, conversant Heart: S1, S2/regular rate and rhythm, no murmur rubs or gallops Lungs: Clear to auscultation bilaterally. Normal effort Abdomen: Soft/nontender/nondistended. Active bowel sounds. Abdomen is not distended. Colostomy bag in place. No hepatosplenomegaly Extremities: No clubbing/cyanosis. No edema Behavior: Appropriate, cooperative Results & Data Results & Data Vital Signs (Past 12 Hours) Vital Signs Temp Pulse Resp BP Pulse Ox O2 Del Method 04/18/24 15:21 36.8 C 83 18 130/79 95 Room Air 04/18/24 07:13 36.6 C 70 18 121/76 96 Room Air 04/18/24 07:10 Room Air Laboratory Results Abnormal lab results 04/17/24 04/17/24 04/18/24 Range/Units 16:33 20:48 05:55 BUN/Creatinine Ratio 8.8 L (10-20) Glucose 135 H (70-99(Fasting)) mg/dl POC Glucose 151 H 159 H (70-99) mg/dl Hemoglobin A1c 7.2 H (4.5-5.6) % 04/18/24 04/18/24 Range/Units 07:46 11:32 BUN/Creatinine Ratio (10-20) Glucose (70-99(Fasting)) mg/dl POC Glucose 132 H 166 H (70-99) mg/dl Hemoglobin A1c (4.5-5.6) % PG Care Time/CCT Total # of Minutes Spent Total Time Spent with Patient: Total time spent is greater than 50% in coordination of care (as documented) at patient's floor/unit and/or counseling patient: Coding Level of Care Code 52171 SUB INP/OBS CARE 2/35MIN Diagnoses History of small bowel obstruction Z87.19 Hypothyroidism E03.9 Diabetes mellitus, type 2 E11.9 Hypertension I10 Hyperlipidemia E78.5 Atrial fibrillation I48.91 Iron deficiency E61.1 GERD (gastroesophageal reflux disease) K21.9 SBO (small bowel obstruction) K56.609
[2024-04-18] MEDS: RIVAROXABAN 15 MG TAB PO SCH (16:38)
[2024-04-18 19:24] VITALS: O2SAT 97
--- NOTE | 2024-04-19 08:13 | Surgery Progress Note ---
Date of Service April 19, 2024 Assessment & Plan (1) SBO (small bowel obstruction): Plan: resolved advance to regular diet okay from surg standpoint for discharge Discussed with Dr. Cortez who agrees with above. Admission and Anticipated Discharge Date Admission Date: April 15, 2024 Subjective feeling well had multiple soft/loose bowel movements starting last night after drinking prune juice no abdominal pain, n,v hungry Physical Exam Constitutional: WD/WN, vitals as above cooperative and comfortable; no acute distress and not ill appearing Respiratory: normal respiratory effort; no respiratory distress and no labored breathing Gastrointestinal (Abdomen): Inspection/Auscultation: abdomen normal to inspection and + visible herniation (parastomal hernia , soft nontender); abdomen not distended Percussion/Palpation: abdomen soft; abdomen nontender, no guarding and abdomen not rigid LLQ colostomy with soft/loose brown stool Skin: no rashes, warm and dry Psychiatric: A+Ox3, euthymic affect Results & Data Vital Signs (Past 12 Hours) Vital Signs O2 Del Method 04/19/24 07:35 Room Air Laboratory Results 04/19/24 04/19/24 04/18/24 Range/Units 07:51 07:33 19:53 Sodium 140 (136-145) mmol/L Potassium 3.8 (3.5-5.1) mmol/L Chloride 107 (98-107) mmol/L Carbon Dioxide 27 (21-32) mmol/L Anion Gap 6 (3-11) BUN 10 (6-23) mg/dl Creatinine 1.17 (0.6-1.4) mg/dl Est Cr Clr Drug Dosing 46.8 ml/min Est GFR ( Amer) 65.0 ml/min Est GFR (Non-Af Amer) 56.1 ml/min BUN/Creatinine Ratio 8.5 L (10-20) Glucose 126 H (70-99(Fasting)) mg/dl POC Glucose 112 H 125 H (70-99) mg/dl Calcium 8.9 (8.6-10.3) mg/dl 04/18/24 04/18/24 Range/Units 16:25 11:32 Sodium (136-145) mmol/L Potassium (3.5-5.1) mmol/L Chloride (98-107) mmol/L Carbon Dioxide (21-32) mmol/L Anion Gap (3-11) BUN (6-23) mg/dl Creatinine (0.6-1.4) mg/dl Est Cr Clr Drug Dosing ml/min Est GFR ( Amer) ml/min Est GFR (Non-Af Amer) ml/min BUN/Creatinine Ratio (10-20) Glucose (70-99(Fasting)) mg/dl POC Glucose 122 H 166 H (70-99) mg/dl Calcium (8.6-10.3) mg/dl
[2024-04-19 08:23] VITALS: RESP 24; TEMP 97.3
[2024-04-19 08:34] LABS: BUN Creatinine Ratio 8.5 (10-20); Calcium 8.9 mg/dl (8.6-10.3); Creatinine Clr Calc Pharmacy 46.8 ml/min; Est GFR (Non-African American) 56.1 ml/min; Potassium 3.8 mmol/L (3.5-5.1)
[2024-04-19 09:21] VITALS: BP 111/64; PULSE 64
--- NOTE | 2024-04-19 10:50 | Discharge Summary ---
Date of Service April 19, 2024 Admission HPI Per Admitting Provider Amilcar is a 88M w/ PMH of multiple SBOs, hypothyroidism, CVA, DM2, HTN, HLD, A Fib on anticoagulation, iron deficiency anemia. GERD, and gout who presents for evaluation of abdominal pain and is being admitted for SBO. Onset: Yesterday had two loose ostomy outputs and subsequently developed abdominal pain and distension Prior: Extensive surgical history, multiple prior SBOs (10+), had prior lysis of adhesions w/ Dr. Frost Prog: Symptoms progressed through the night and patient knew from prior episodes that he was again developing an SBO, in the past he notices a reduction in gas in his ostomy bag whenever he is developing an SBO and this happened prior to arrival Pal/Prov: Has modified his home diet to contain more fluids, soups, and less fiber - which he felt had reduced the frequency of SBOs Reg/Rad: Discomfort/bloating primarily localized to LLQ Quality: Bloating, cramping Sev/Scale: Moderate Treat: None Associated: No fevers, chills, nausea or emesis. No stoma changes. No dysuria or frequency. No headaches or lightheadedness. Admission Exam Per Admitting Provider Gen: NAD, alert, interactive, pleasant HEENT: Supple, no LAD, no JVD Resp:Non-labored, no wheezing/rhonchi/rales, CTAB CV:bradycardic, regular rhythm, normal S1/S2, no M/R/G Abd: Soft, LLQ distension, mild TTP of LLQ, active bowels, no masses, +ostomy in LLQ - Ostomy: stoma pink, small parastomal hernia, small stool in collection bagExtr : 2+ dp bilaterally, no edema Skin: No rashes lesions or erythema Principal Diagnosis Small bowel obstruction Acute stroke has been ruled out Discharge Exam General: Awake, conversant Heart: S1, S2/regular rate and rhythm, no murmur rubs or gallops Lungs: Clear to auscultation bilaterally. Normal effort Abdomen: Soft/nontender/nondistended. Active bowel sounds. Abdomen is not distended. Colostomy bag in place with stool in it. No hepatosplenomegaly Extremities: No clubbing/cyanosis. No edema Behavior: Appropriate, cooperative Discharge Data Allergies Allergy/AdvReac Type Severity Reaction Status Date / Time tetanus toxoid, adsorbed Allergy Intermediate BLISTERS Verified 04/15/24 02:08 AND EYES SWELLING hydromorphone AdvReac Intermediate HALLUCINATI Verified 04/15/24 02:08 ONS lorazepam AdvReac Intermediate HALLUCINATI Verified 04/15/24 02:08 ONS Consultations 04/15/24 03:44 ED Decision to Admit Stat 04/15/24 09:30 Consult General Surgery Routine 04/17/24 08:49 Consult Neurology Routine Ordered Studies 04/15/24 00:33 CT abd pelvis IV con only Stat 04/17/24 07:[address] [CT head/brain wo con] Stat 04/17/24 08:47 CTA head w con [CT angio head w con] Stat 04/17/24 08:48 CTA neck with con [CT angio neck with con] Stat 04/17/24 12:01 MRI Brain [MR brain wo con] Stat Hospital Course (1) History of small bowel obstruction: (2) Hypothyroidism: (3) Diabetes mellitus, type 2: (4) Hypertension: (5) Hyperlipidemia: (6) Atrial fibrillation: (7) Iron deficiency: (8) GERD (gastroesophageal reflux disease): (9) SBO (small bowel obstruction): Acacia Fitzgerald is a 88M w/ PMH of multiple SBOs, hypothyroidism, CVA, DM2, HTN, HLD, A Fib on anticoagulation, iron deficiency anemia. GERD, and gout who presents for evaluation of abdominal pain and is being admitted for SBO. 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 There is relatively decompressed terminal ileum. No abrupt transition point is noted. There is gas and stool noted throughout the colon. An early partial small bowel obstruction is noted. No high-grade or complete obstruction is noted. -Surgery on board Patient has been conservatively managed. Continues to feel better. Patient tolerated a solid diet. He had a bowel movement. Deemed stable for discharge Surgery cleared the patient for discharge tomorrow Aphasia Patient woke up on 04/17 with worsened aphasia and increased confusion. 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 He has a history of aphasia and has difficulty bringing up the right words. Head CT negative CTA head and neck revealed no significant stenosis or occlusion within the carotid or vertebral arteries. 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 MRI brain negative Echocardiogram unremarkable Neurology consulted This is most likely not a stroke but rather an exacerbation of his previous aphasia due to lack of sleep/stress/anxiety Continue aspirin. Switched back to Xarelto. Xarelto dose has been reduced to 15 mg daily due to lower GFR Continue Zocor Lipid panel reviewed. Fairly controlled. A1c 7.2. Chronic Conditions - HLD: Continue statin - AFib: Continue Diltiazem and Metoprolol. On heparin drip - GERD: Continu Pantoprazole - DM2: home meds held. A1c 7.2. - Hypothyroidism: Continue Levothyroxine - HTN: Continue home antihypertensives Discharge to home today Total Time Total Time Spent Total Time Spent (In Minutes): 35 Discharge Plan Discharge Items Patient Disposition: Home - Self-Care Reason For Visit: SMALL BOWEL OBSTRUCTION Discharge Diagnosis: Small bowel obstruction Activity: Resume your previous activity Non-emergency contact: Primary Care Provider Call non-emergency contact if: you have any medication questions and your symptoms worsen Follow-up/Referrals: Romulo Barker DO [Primary Care Provider] - 04/27/24 2:00 pm Diet: Heart Healthy Addtl Attending Provider Instructions: Advised to follow-up with PCP in 1 week Pending Studies at Discharge: No Stand-Alone Forms: My [facility] Medications and DC Order Prescriptions: New Xarelto 15 mg Tablet 15 mg PO QDD 30 Days Qty: 30 0RF Continued metformin 500 mg tablet extended release 24 hr 500 mg PO QPM Qty: 90 3RF empagliflozin 25 mg tablet 25 mg PO DAILY Qty: 90 3RF metoprolol succinate 50 mg tablet extended release 24 hr 75 mg PO DAILY Qty: 120 3RF simvastatin 40 mg tablet 40 mg PO PM Qty: 90 3RF levothyroxine 50 mcg tablet 50 mcg PO . ABOUT LUNCHTIME Qty: 90 1RF Rx Instructions: about lunchtime diltiazem HCl [Cartia XT] 120 mg capsule,extended release 24hr 120 mg PO DAILY Qty: 90 3RF mecobalamin (vitamin B12) 1,000 mcg tablet,chewable 1,000 mcg PO QPM Centrum Silver Men 300-600-300 mcg tablet 1 tab PO QAM cholecalciferol (vitamin D3) 50 mcg (2,000 unit) capsule 50 mcg PO QAM aspirin [Adult Low Dose Aspirin] 81 mg tablet,delayed release (DR/EC) 81 mg PO DAILY Qty: 30 0RF glipizide 5 mg tablet extended release 24hr 5 mg PO QAM pantoprazole 40 mg tablet,delayed release (DR/EC) 40 mg PO BID Discontinued Xarelto 20 mg tablet 20 mg PO QAM Qty: 90 3RF Discharge Orders: Discharge Order (Routine); Ordered 04/19/24 Ordered By: Maira Garcia/Other Patient Handouts: Managing Type 2 Diabetes Admission Data Admit Date/Time: 04/15/24 04:43 Attending Provider: Maira Lopez Admit Provider: Justina Bone Primary Care Provider: Romulo Barker Other Providers: Jluis Mcqueen; Bo Fuentes; Jayesh Liu; Antonio Cameron; Talat Verdin; Noam Sandy; Ann Bolden; Vinnie Rose; Kannan Cook; Yane Hansen; Christopher Parmar; Romulo Castro Other Interventions: Discharge Summary Assessment (RN) Last Done: 04/19/24 11:26
== END 2024-04-19 12:03 | disposition home or self-care (01) | DRG 390 ==
LOC: SUATTDRO → ED 23:46 → SUATTDRO 04-15 04:43 → 3N 04-15 04:43

== ENCOUNTER 2024-08-04 20:02 | Observation (INO) ==
[2024-08-04 20:54] LABS: Basophils # (auto) 0.07 K/uL (0.00-0.20); Basophils % (auto) 0.6 %; Eosinophils # (auto) 0.38 K/uL (0.00-0.50); Eosinophils % (auto) 3.4 %; Hematocrit (blood only) 48.1 % (42.0-52.0); Hemoglobin 15.8 g/dl (14.0-18.0); Immature Granulocytes # (auto) 0.06 K/uL (0.01-0.20); Immature Granulocytes % (auto) 0.5 %; Lymphocytes # (auto) 1.42 K/uL (1.20-3.40); Lymphocytes % (auto) 12.7 %; Mean Corpuscular Hemoglobin 29.4 pg (25.0-34.0); Mean Corpuscular Hgb Conc 32.8 g/dL (32.0-36.0); Mean Corpuscular Volume 89.4 fL (80.0-100.0); Mean Platelet Volume 8.7 fL (9.4-12.4); Monocytes # (auto) 1.06 K/uL (0.11-0.59); Monocytes % (auto) 9.5 %; Neutrophils # (auto) 8.19 K/uL (1.40-6.50); Neutrophils % (auto) 73.3 %; Platelet Count 242 K/uL (130-400); RDW Coefficient of Variation 13.9 % (11.5-14.5); RDW Standard Deviation 44.7 fL (36.4-46.3); Red Blood Count 5.38 M/uL (4.70-6.10); White Blood Count 11.18 K/ul (4.8-10.8)
[2024-08-04 21:09] LABS: Albumin Globulin Ratio 1.6 (0.9-2); Albumin Level 4.5 gm/dl (3.4-5.0); BUN Creatinine Ratio 10.3 (10-20); Bilirubin,Total 0.7 mg/dl (0.2-1.0); Calcium 9.5 mg/dl (8.6-10.3); Creatinine Clr Calc Pharmacy 40.3 ml/min; Globulin 2.8 gm/dl (2.5-4.0); Potassium 4.5 mmol/L (3.5-5.1); Total Protein 7.3 gm/dl (6.0-8.3)
[2024-08-04 21:15] LABS: Troponin I High Sensitivity 10.4 pg/ml (0-20)
[2024-08-04 21:17] LABS: INR 1.1 (0.9-1.1)
--- NOTE | 2024-08-04 21:33 | Emergency Department Note ---
Impression & Plan Small bowel obstruction due to adhesions, On anticoagulant therapy, Atrial fibrillation, Fall from standing, Abrasion of right ear ED Provider Note NAME: YOEL RAMACHANDRAN AGE: 88 SEX: M : 1935 ARRIVES VIA: Walk-In INFORMANT: Patient ED PROVIDER(S): Ac Espinoza MD CHIEF COMPLAINT: Abdominal pain, nausea and vomiting PLAN: Disposition: Admit MEDICAL DECISION MAKING: The patient is a pleasant 88-year-old gentleman with a past medical history of colostomy remotely, history of recurrent small bowel obstruction secondary to adhesions, atrial fibrillation on Xarelto, hypertension, hyperlipidemia, diabetes, GERD who presents to the emergency department via walk-in accompanied by son for evaluation of worsening abdominal pain since this afternoon in the setting of the patient waking this morning and noticing there was no gas or output into his colostomy bag. Patient reports he did eat a meal and approximately an hour later began having creasing pain. He denies vomiting but reports continued nausea. He denies any fevers, chills, cough, congestion. Of note, the patient's son reports that he just became aware tonight that his father reports having 2 falls over the past couple of days where he lost his balance. The patient was able to get up on his own and has been ambulating without difficulty. He has bruising and linear abrasion of the right ear. On my evaluation the patient is uncomfortable, afebrile heart in the 90s and blood pressure 160s/90s and vital signs otherwise stable. He appears clinically dry. Abdomen is mildly distended but soft. He exhibits generalized abdominal discomfort without discrete tenderness. His colostomy bag is decompressed without gas or output. Ecchymosis of the right ear/auricle with 3 cm linear abrasion of the auricle. There is no auricular hematoma. EKG without overt acute ischemia. WBC and platelets within normal limits. H/H similar to prior. Platelets within normal limits. Chemistry without metabolic acidosis. Lactic acid 1.5, within normal limits. LFTs unremarkable. High-sensitivity troponin 10.4, within normal limits. Lipase is not elevated. UA without convincing evidence of infection. CT of the head, C-spine, chest and abdomen pelvis were performed given the patient's fall in the setting of being on Xarelto. CT imaging was negative for acute traumatic findings. However evidence of small bowel obstruction is described. Nasogastric tube was ordered and case was reviewed with general surgery, Gary Liu general surgery [facility] with Dr. Verdin, general surgery. Upon reassessment the patient was reporting that he had subsequently passed gas into his colostomy bag and felt significantly improved. Thus NG tube was deferred. Appreciate consultation and recommendations. Recommend admission to medicine service for continued supportive care. Case was discussed with Dr. Mcqueen [facility] hospitalist, who will evaluate the patient for admission. Further management per admitting team. Triage Nursing notes reviewed and agree them. Prior/external medical records reviewed Vital Signs: reviewed Differential diagnosis: Gastroenteritis, food borne illness, infections, appendicitis, diverticulitis, inflammatory bowel disease, obstruction, GI bleed, biliary pathology, volvulus, as well as other pathologies. ER treatment provided: See below. Diagnostics interpreted by me: ECG: Atrial fibrillation, 71 bpm, no ectopy, right bundle branch block, T wave abnormality, no overt ST elevation or depression, QTc 456, QRS 148. Cardiac Monitoring: An order for continuous cardiac monitoring was placed and demonstrated Atrial fibrillation, 71 bpm, no ectopy. Laboratory studies: See below Imaging studies: See below Consultation(s): Gary Liu general surgery NAN[facility] with Dr. Verdin, general surgery Dr. Mcqueen [facility] hospitalist HPI: The patient is a pleasant 88-year-old gentleman with a past medical history of colostomy remotely, history of recurrent small bowel obstruction secondary to adhesions, atrial fibrillation on Xarelto, hypertension, hyperlipidemia, diabetes, GERD who presents to the emergency department via walk-in accompanied by son for evaluation of worsening abdominal pain since this afternoon in the setting of the patient waking this morning and noticing there was no gas or output into his colostomy bag. Patient reports he did eat a meal and approximately an hour later began having creasing pain. He denies vomiting but reports continued nausea. He denies any fevers, chills, cough, congestion. Of note, the patient's son reports that he just became aware tonight that his father reports having 2 falls over the past couple of days where he lost his balance. The patient was able to get up on his own and has been ambulating without difficulty. He has bruising and linear abrasion of the right ear. ROS: See above HPI for pertinent positives & negatives. A total of 10 systems reviewed and were otherwise negative. VITALS:See Below PHYSICAL EXAMINATION: GENERAL: Awake, alert, uncomfortable-appearing, in no distress HENT: Normocephalic, atraumatic. Ecchymosis of the right ear/auricle with 3 cm linear abrasion of the auricle. There is no auricular hematoma. Oropharynx with dry mucous membranes. EYES: Normal conjunctiva. Sclera non-icteric. NECK: Supple. No nuchal rigidity. FROM. No JVD. RESPIRATORY: Clear to auscultation. CARDIAC: Regular rate, irregular rhythm. Extremities warm and well perfused. Pulses equal. ABDOMEN: Mild distention but soft. Generalized abdominal discomfort without discrete tenderness to palpation. No rebound or guarding. Left lower quadrant colostomy site is decompressed without output or gas. MUSCULOSKELETAL: Chest examination reveals no tenderness. The back is symmetrical on inspection without obvious abnormality. There is no CVA tenderness to palpation. No joint edema. LOWER EXTREMITIES: Calves are equal size bilaterally and non-tender. No edema. No discoloration. NEURO: Normal sensorium. No sensory or motor deficits noted. SKIN: No rash or jaundice noted. Ac Espinoza MD Past Med/Surg History Problem List (Updated 08/05/24 @ 07:33 by Ac Espinoza MD) Abrasion of right ear (Acute) Fall from standing (Acute) Small bowel obstruction due to adhesions (Acute) CHLOE (iron deficiency anemia) Hypertension Atrial fibrillation (Acute) Mitral regurgitation On anticoagulant therapy (Acute) xarelto daily H/O: stroke with residual effects Expressive aphasia Memory deficits Balance disorder History of small bowel obstruction Hypothyroidism Diabetes mellitus, type 2 Hyperlipidemia Gout GERD (gastroesophageal reflux disease) Medical History Wernicke's aphasia CVA (cerebral vascular accident) Classic migraine Hiatal hernia Cerebellar hemorrhage CKD (chronic kidney disease) Hypertrophy of both inferior nasal turbinates Chronic rhinitis Rotator cuff tear Per MRI 02/2020. Followed by orthopedics. Declined operative management. 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 History of colon cancer 1978 Surgical History H/O hernia repair Hx of abdominal surgery bowel obstruction History of total right hip replacement Hx of vasectomy History of colostomy History of bowel resection for colon cancer History of colonoscopy History of esophagogastroduodenoscopy (EGD) 06/2021 Hiatal hernia small, gastritis Status post Mohs surgery for basal cell carcinoma History of root canal procedure History of wisdom tooth extraction History of tonsillectomy and adenoidectomy History of phacoemulsification of cataract of both eyes with intraocular lens implantation History of cardioversion x2 Family History Father , age 91 Hypertension Diabetes Mother , age 64 metastatic breast cancer Breast cancer Ovarian cancer Brother Colorectal cancer Other Coronary heart disease No family history of adverse response to anesthesia Denies family history of Prostate cancer Crohn's disease Myocardial infarction Lung cancer Inflammatory bowel disease Social History Smoking Status: Former smoker Tobacco Type: Pipe Age Started Using Tobacco: 22; Age Quit Using Tobacco: 52; Second Hand Exposure: Yes; Do You Dip or Chew Tobacco: No; Tobacco Cessation Education Requested by Patient: No Hx Alcohol Use: No Hx Substance Use: No Preferred Language: Japanese Communication Ability: Effective Visual Impairment: Diminished Hearing Ability: Normal Solid Center Winder Required: No Beliefs That Will Affect Care: None marital status: Current Living Situation: Spouse Current Living Situation Comment: lives in home with , son lives in area and helps current occupational 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, [employer] How many Children do You have: 1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 That Helps Us Care for You: No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 Feels Safe at Home: Yes Safety Concerns: Feels Safe At This Time Childhood Exposure to Second-Hand Smoke: Yes (father smoked in home ) Diet: regular Diet Comment: low fiber caffeine: Yes (drinks coffee daily about half a cup ) Dental Care, Regularly: Yes Physical Activity Frequency: 3-4 Times per Week Physical Activity Frequency Comment: 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 Seatbelt Use: always Sunscreen Use: No (says he does cover up well ) Do you think of yourself as: straight/heterosexual Assistive Devices: Cane and Glasses Allergies Allergies Allergy/AdvReac Type Severity Reaction Status Date / Time tetanus toxoid, adsorbed Allergy Intermediate BLISTERS Verified 07/06/24 10:59 AND EYES SWELLING hydromorphone AdvReac Intermediate HALLUCINATI Verified 07/06/24 10:59 ONS lorazepam AdvReac Intermediate HALLUCINATI Verified 07/06/24 10:59 ONS Home Meds Home Medications Medication Instructions Recorded Confirmed mecobalamin (vitamin B12) 1,000 1,000 mcg PO QPM 07/23/20 08/05/24 mcg chewable tablet cholecalciferol (vitamin D3) 50 50 mcg PO QAM 12/10/20 08/05/24 mcg (2,000 unit) capsule [id number] 300 mcg-K 60 1 tab PO QAM 12/10/20 08/05/24 mcg-lycop 600 mcg-lutein 300 mcg tablet (Centrum Silver Men) pantoprazole 40 mg tablet,delayed 40 mg PO BID 08/16/23 08/05/24 release Previous Rx's Medication Instructions Recorded aspirin 81 mg tablet,delayed 81 mg PO DAILY #30 tabs 05/29/22 release (Adult Low Dose Aspirin) empagliflozin 25 mg tablet 25 mg PO DAILY #90 tabs 08/13/23 metoprolol succinate 50 mg 75 mg (1.5 x 50 mg) PO DAILY #120 01/13/24 tablet,extended release 24 hr tabs levothyroxine 50 mcg tablet 50 mcg PO . ABOUT LUNCHTIME #90 03/28/24 tabs simvastatin 40 mg tablet 40 mg PO PM #90 tabs 03/28/24 diltiazem HCl 120 mg 120 mg PO DAILY #90 caps 04/04/24 capsule,extended release 24 hr (Cartia XT) metformin 500 mg tablet,extended 500 mg PO QPM #90 tabs 05/03/24 release 24 hr rivaroxaban 15 mg tablet (Xarelto) 15 mg PO QDD 1 month #90 tabs 05/09/24 glipizide 5 mg tablet, extended 5 mg PO QAM #90 tabs 06/26/24 release 24 hr Results & Data (ED) Vital Signs Vital Signs - 24 hr 08/04/24 20:14 08/04/24 20:29 08/04/24 20:32 Temperature 36.2 C L Temperature Source Temporal Artery Scan Pulse Rate 98 H 72 Pulse Rate [Finger] 71 Pulse Rhythm Regular Respiratory Rate 19 18 Respiratory Effort / Characteristics Non-Labored Respiratory Depth Normal Blood Pressure 169/93 H Blood Pressure [Left Arm] 151/92 H Blood Pressure Mean 118 Blood Pressure Mean [Left Arm] 111 Pulse Oximetry 97 Oxygen Delivery Method Sepsis Recent Fever Within 48 Hours No Sepsis New/Unexplained Change in Mental Status No Sepsis Action Taken by Nursing No Action Required 08/04/24 20:32 08/04/24 22:06 08/04/24 23:00 Temperature Temperature Source Pulse Rate 88 73 Pulse Rate [Finger] 73 Pulse Rhythm Regular Respiratory Rate 18 22 18 Respiratory Effort / Characteristics Respiratory Depth Blood Pressure 120/94 Blood Pressure [Left Arm] 165/99 H Blood Pressure Mean 100 Blood Pressure Mean [Left Arm] 121 Pulse Oximetry 97 97 94 Oxygen Delivery Method Room Air Room Air Room Air Sepsis Recent Fever Within 48 Hours Sepsis New/Unexplained Change in Mental Status Sepsis Action Taken by Nursing 08/04/24 23:00 08/05/24 00:00 08/05/24 00:56 Temperature Temperature Source Pulse Rate 78 90 73 Pulse Rate [Finger] Pulse Rhythm Respiratory Rate 20 20 Respiratory Effort / Characteristics Respiratory Depth Blood Pressure 120/94 144/80 H Blood Pressure [Left Arm] Blood Pressure Mean 100 89 Blood Pressure Mean [Left Arm] Pulse Oximetry 94 95 Oxygen Delivery Method Room Air Room Air Sepsis Recent Fever Within 48 Hours Sepsis New/Unexplained Change in Mental Status Sepsis Action Taken by Nursing 08/05/24 01:00 Temperature Temperature Source Pulse Rate 76 Pulse Rate [Finger] Pulse Rhythm Respiratory Rate 20 Respiratory Effort / Characteristics Respiratory Depth Blood Pressure 133/83 Blood Pressure [Left Arm] Blood Pressure Mean 120 Blood Pressure Mean [Left Arm] Pulse Oximetry 94 Oxygen Delivery Method Room Air Sepsis Recent Fever Within 48 Hours Sepsis New/Unexplained Change in Mental Status Sepsis Action Taken by Nursing Laboratory Data Attestation: I reviewed the patient's lab results. 08/05/24 05:33 08/05/24 05:33 Lab Results 08/04/24 08/04/24 08/04/24 Range/Units 20:34 20:44 Unknown WBC 11.18 H (4.8-10.8) K/ul RBC 5.38 (4.70-6.10) M/uL Hgb 15.8 (14.0-18.0) g/dl Hct 48.1 (42.0-52.0) % MCV 89.4 (80.0-100.0) fL MCH 29.4 (25.0-34.0) pg MCHC 32.8 (32.0-36.0) g/dL RDW Std Deviation 44.7 (36.4-46.3) fL RDW Coeff of [place] 13.9 (11.5-14.5) % Plt Count 242 (130-400) K/uL MPV 8.7 L (9.4-12.4) fL Immature Gran % (Auto) 0.5 % Neut % (Auto) 73.3 % Lymph % (Auto) 12.7 % Kane % (Auto) 9.5 % Eos % (Auto) 3.4 % Baso % (Auto) 0.6 % Neut # (Auto) 8.19 H (1.40-6.50) K/uL Lymph # (Auto) 1.42 (1.20-3.40) K/uL Kane # (Auto) 1.06 H (0.11-0.59) K/uL Eos # (Auto) 0.38 (0.00-0.50) K/uL Baso # (Auto) 0.07 (0.00-0.20) K/uL Immature Gran # (Auto) 0.06 (0.01-0.20) K/uL PT 12.0 (9.0-12.0) Seconds INR 1.1 (0.9-1.1) Sodium 136 (136-145) mmol/L Potassium 4.5 (3.5-5.1) mmol/L Chloride 101 (98-107) mmol/L Carbon Dioxide 28 (21-32) mmol/L Anion Gap 7 (3-11) BUN 14 (6-23) mg/dl Creatinine 1.36 (0.6-1.4) mg/dl Est Cr Clr Drug Dosing 40.3 ml/min eGFR 50.68 BUN/Creatinine Ratio 10.3 (10-20) Glucose 195 H (70-99(Fasting)) mg/dl Lactate 1.5 (0.4-2.0) mmol/L Calcium 9.5 (8.6-10.3) mg/dl Total Bilirubin 0.7 (0.2-1.0) mg/dl AST 16 (13-39) U/L ALT 10 (7-52) U/L Alkaline Phosphatase 79 (34-104) U/L Troponin I High Sens 10.4 (0-20) pg/ml Total Protein 7.3 (6.0-8.3) gm/dl Albumin 4.5 (3.4-5.0) gm/dl Globulin 2.8 (2.5-4.0) gm/dl Albumin/Globulin Ratio 1.6 (0.9-2) Lipase 29 (11-82) U/L Urine Color Yellow Urine Appearance Clear (Clear) Urine pH 6.5 (4.5-7.5) Ur Specific [place] > 1.045 H (1.000-1.030) Urine Protein 1+ H (Negative) Urine Glucose (UA) 3+ H (Negative) Urine Ketones 1+ H (Negative) Urine Blood 2+ H (Negative) Urine Nitrite Negative (Negative) Urine Bilirubin Negative (Negative) Urine Urobilinogen Negative (Negative) Ur Leukocyte Esterase Negative (Negative) Urine WBC (Auto) 0-5 (0-5) /hpf Urine RBC (Auto) >20 H (0-2) /hpf U Hyaline Cast (Auto) 0-2 (0-2) /lpf U Epithel Cells (Auto) 0-2 (0-2) /hpf Urine Bacteria (Auto) None Seen (None Seen) Administered Medications Sodium Chloride (Nss) 1,000 mls @ 80 mls/hr IV .[id number] [facility] Stop: 08/06/24 04:52 Last Admin: 08/05/24 04:15 Dose: 80 mls/hr Documented By: LINDA Insulin Aspart (Insulin Aspart Per Unit Charge) 0 units SC Q6 RACHEL Stop: 09/04/24 05:59 Last Admin: 08/05/24 05:58 Dose: Not Given Documented By: LINDA Discontinued Medications Sodium Chloride (Nss) 1,000 mls @ 999 mls/hr IV .Q1H1M ONE Stop: 08/04/24 22:31 Last Infusion: 08/04/24 23:00 Dose: Infused Documented By: Admin: 08/04/24 21:58 Dose: 999 mls/hr Documented By: CHRISTOPHER Acetaminophen (Ofirmev) 1,000 mg in 100 mls @ 400 mls/hr IV NOW STA Stop: 08/04/24 21:45 Last Infusion: 08/04/24 23:00 Dose: Infused Documented By: Admin: 08/04/24 21:59 Dose: 400 mls/hr Documented By: CHRISTOPHER Piperacillin Sod/Tazobactam Sod (Zosyn) 4.5 gm in 100 mls @ 200 mls/hr IV NOW STA; Protocol Stop: 08/05/24 04:42 Last Admin: 08/05/24 04:46 Dose: 200 mls/hr Documented By: LINDA Ioversol (Optiray 320 100ml) 90 ml IV ONCE ONE Stop: 08/04/24 21:46 Last Admin: 08/04/24 21:46 Dose: 90 ml Documented By: YOVANI Morphine Sulfate (Morphine Sulfate 2 Mg/Ml Carp) 2 mg IV NOW STA Stop: 08/04/24 21:32 Last Admin: 08/04/24 21:36 Dose: 2 mg Documented By: CHRISTOPHER Ondansetron HCl (Ondansetron Inj 2 Mg/Ml 2 Ml Vial) 4 mg IV NOW STA Stop: 08/04/24 21:32 Last Admin: 08/04/24 21:36 Dose: 4 mg Documented By: CHRISTOPHER Imaging Data Radiologist's Impression: Abdomen/Pelvis CT 08/04/24 20:28 Exam(s): CT ABDOMEN + PELVIS With Contrast IV Amt: 90 cc opti 320 EXAM: CT Abdomen and Pelvis With Intravenous Contrast CLINICAL HISTORY: Abdominal Pain. TECHNIQUE: Axial computed tomography images of the abdomen and pelvis with intravenous contrast. CTDI is 37 mGy and DLP is 1184 mGy-cm. Automated exposure control was utilized for the study. A dose lowering technique was utilized adhering to the principles of ALARA. CONTRAST: Patient received 90 cc opti 320 of IV contrast COMPARISON: CT abdomen and pelvis 04/15/2024. FINDINGS: Lung bases: Unremarkable. No mass. No consolidation. ABDOMEN: Liver: Unremarkable. No mass. Gallbladder and bile ducts: Cholelithiasis. No ductal dilation. Pancreas: Unremarkable. No mass. No ductal dilation. Spleen: Unremarkable. No splenomegaly. Adrenals: Unremarkable. No mass. Kidneys and ureters: Simple appearing bilateral renal cysts are present, no follow up is needed. The kidneys are otherwise unremarkable. No hydronephrosis. Stomach and bowel: Small bowel obstruction with fecalization of the more distal bowel. A transition point in the left mid abdomen is noted. No mucosal thickening. PELVIS: Appendix: Normal appendix. Bladder: Unremarkable. No mass. Reproductive: Unremarkable as visualized. ABDOMEN and PELVIS: Intraperitoneal space: Unremarkable. No free air. No significant fluid collection. Bones/joints: There are degenerative changes of the spine. No acute fracture. There is a right hip prosthesis. No dislocation. Soft tissues: There is a small fat-containing hernia of the left lateral abdominal wall. Small bilateral fat-containing inguinal hernias. There is a left lower quadrant colostomy with a small amount of fluid within the hernia sac. Vasculature: Mild atherosclerosis. No abdominal aortic aneurysm. Lymph nodes: Unremarkable. No enlarged lymph nodes. IMPRESSION: 1. Small bowel obstruction with fecalization of the more distal bowel. A transition point in the left mid abdomen is noted. This most consistent with acute on chronic small bowel obstruction. 2. Cholelithiasis. 3. There is a left lower quadrant colostomy with a small amount of fluid within the hernia sac. This is nonspecific. Electronically signed by: Casi Elam MD 08/05/24 00:[address] 08/04/24 21:31 Exam(s): CT C SPINE EXAM: CT Cervical Spine Without Intravenous Contrast CLINICAL HISTORY: Injury. TECHNIQUE: Axial computed tomography images of the cervical spine without intravenous contrast. CTDI is 37 mGy and DLP is 1184 mGy-cm. Automated exposure control was utilized for the study. A dose lowering technique was utilized adhering to the principles of ALARA. COMPARISON: No relevant prior studies available. FINDINGS: Vertebrae: Mild degenerative endplate changes are noted. No acute finding of the cervical spine. Discs/spinal canal/neural foramina: No acute findings. No spinal canal stenosis. Soft tissues: Unremarkable. IMPRESSION: No acute finding of the cervical spine. Electronically signed by: Casi Elam MD 08/05/24 00:[address] 08/04/24 21:31 Exam(s): CT CHEST With Contrast IV Amt: 90 cc opti 320 EXAM: CT Chest With Intravenous Contrast CLINICAL HISTORY: Fall. TECHNIQUE: Axial computed tomography images of the chest with intravenous contrast. CTDI is 37 mGy and DLP is 1184 mGy-cm. Automated exposure control was utilized for the study. A dose lowering technique was utilized adhering to the principles of ALARA. CONTRAST: Patient received 90 cc opti 320 of IV contrast COMPARISON: No relevant prior studies available. FINDINGS: Lungs: Interseptal thickening at the periphery of the lungs is concerning for interstitial lung disease. No mass. No pulmonary embolus. No consolidation. Pleural space: Unremarkable. No pneumothorax. No significant effusion. Heart: Coronary artery calcifications are present. No cardiomegaly. No significant pericardial effusion. Bones/joints: Degenerative changes are noted. No acute fracture. No dislocation. Soft tissues: Unremarkable. Vasculature: There is dilation of the pulmonary arteries. The main pulmonary artery measures 4.6 cm. Mild atherosclerosis. Lymph nodes: Unremarkable. No enlarged lymph nodes. IMPRESSION: 1. No pulmonary embolus. 2. There is dilation of the pulmonary arteries. This is concerning for pulmonary artery hypertension. 3. Interseptal thickening at the periphery of the lungs is concerning for interstitial lung disease. Cannot exclude pulmonary edema. Electronically signed by: Casi Elam MD 08/05/24 00:[address] 08/04/24 21:31 Exam(s): CT HEAD Without Contrast EXAM: CT Head Without Intravenous Contrast CLINICAL HISTORY: Fall. TECHNIQUE: Axial computed tomography images of the head/brain without intravenous contrast. CTDI is 37 mGy and DLP is 1184 mGy-cm. Automated exposure control was utilized for the study. A dose lowering technique was utilized adhering to the principles of ALARA. COMPARISON: No relevant prior studies available. FINDINGS: Brain: No intracranial hemorrhage, mass-effect or midline shift. No abnormal extra axial fluid. No evidence of acute infarct. Mild periventricular white matter hypodensities are most consistent with chronic microangiopathy. There is encephalomalacia of the left parietal lobe. Ventricles: Unremarkable. No ventriculomegaly. Bones/joints: Unremarkable. No acute fracture. Soft tissues: Unremarkable. Sinuses: Unremarkable as visualized. No acute sinusitis. Mastoid air cells: Unremarkable as visualized. No mastoid effusion. IMPRESSION: No acute intracranial finding. Electronically signed by: Casi Elam MD 08/05/24 00:36 AM Discharge Plan Visit Data Chief Complaint: Abdominal Pain Stated Complaint: ABDOMINAL PAIN ED Provider: Ac Espinoza Discharge Problem: Small bowel obstruction due to adhesions, On anticoagulant therapy, Atrial fibrillation, Fall from standing, Abrasion of right ear Patient Disposition: Admitted As Inpatient Discharge Instructions Interventions: ED Discharge Assessment Last Done: 08/05/24 03:34 Discharge Problem: Atrial fibrillation Qualifiers: Atrial fibrillation type: unspecified Qualified Code(s): I48.91 - Unspecified atrial fibrillation Fall from standing Qualifiers: Encounter type: initial encounter Qualified Code(s): W19.XXXA - Unspecified fall, initial encounter Abrasion of right ear Qualifiers: Encounter type: initial encounter Qualified Code(s): S00.411A - Abrasion of right ear, initial encounter
[2024-08-04] MEDS: ONDANSETRON INJ 2 MG/ML 2 ML VIAL IV STA (21:36)
[2024-08-04] MEDS: MoRPHine SULFATE 2 MG/ML CARP IV STA (21:36)
[2024-08-04] MEDS: OPTIRAY 320 100ml IV ONE (21:46)
[2024-08-04] MEDS: SODIUM CHLORIDE 0.9% 1,000 ML IV ONE (21:58)
[2024-08-04] MEDS: ACETAMINOPHEN 1,000 MG/100 ML VIAL IV STA (21:59)
[2024-08-04 22:16] LABS: Appearance Urine Clear (Clear); Bacteria Urine Automated None Seen (None Seen); Bilirubin Urine Negative (Negative); Blood Urine 2+ (Negative); Cast Urine Automated 0-2 /lpf (0-2); Color Urine Yellow; Epithelial Cell Urine Auto 0-2 /hpf (0-2); Glucose Urine UA 3+ (Negative); Ketones Urine 1+ (Negative); Leukocyte Esterase Urine Negative (Negative); Nitrite Urine Negative (Negative); Protein Urine 1+ (Negative); RBC Urine Automated >20 /hpf (0-2); Specific Gravity Urine > 1.045 (1.000-1.030); Urobilinogen Urine Negative (Negative); WBC Urine Automated 0-5 /hpf (0-5); pH Urine 6.5 (4.5-7.5)
--- NOTE | 2024-08-05 00:20 | CT Scan Report ---
Exam(s): CT ABDOMEN + PELVIS With Contrast IV Amt: 90 cc opti 320 EXAM: CT Abdomen and Pelvis With Intravenous Contrast CLINICAL HISTORY: Abdominal Pain. TECHNIQUE: Axial computed tomography images of the abdomen and pelvis with intravenous contrast. CTDI is 37 mGy and DLP is 1184 mGy-cm. Automated exposure control was utilized for the study. A dose lowering technique was utilized adhering to the principles of ALARA. CONTRAST: Patient received 90 cc opti 320 of IV contrast COMPARISON: CT abdomen and pelvis 04/15/2024. FINDINGS: Lung bases: Unremarkable. No mass. No consolidation. ABDOMEN: Liver: Unremarkable. No mass. Gallbladder and bile ducts: Cholelithiasis. No ductal dilation. Pancreas: Unremarkable. No mass. No ductal dilation. Spleen: Unremarkable. No splenomegaly. Adrenals: Unremarkable. No mass. Kidneys and ureters: Simple appearing bilateral renal cysts are present, no follow up is needed. The kidneys are otherwise unremarkable. No hydronephrosis. Stomach and bowel: Small bowel obstruction with fecalization of the more distal bowel. A transition point in the left mid abdomen is noted. No mucosal thickening. PELVIS: Appendix: Normal appendix. Bladder: Unremarkable. No mass. Reproductive: Unremarkable as visualized. ABDOMEN and PELVIS: Intraperitoneal space: Unremarkable. No free air. No significant fluid collection. Bones/joints: There are degenerative changes of the spine. No acute fracture. There is a right hip prosthesis. No dislocation. Soft tissues: There is a small fat-containing hernia of the left lateral abdominal wall. Small bilateral fat-containing inguinal hernias. There is a left lower quadrant colostomy with a small amount of fluid within the hernia sac. Vasculature: Mild atherosclerosis. No abdominal aortic aneurysm. Lymph nodes: Unremarkable. No enlarged lymph nodes. IMPRESSION: 1. Small bowel obstruction with fecalization of the more distal bowel. A transition point in the left mid abdomen is noted. This most consistent with acute on chronic small bowel obstruction. 2. Cholelithiasis. 3. There is a left lower quadrant colostomy with a small amount of fluid within the hernia sac. This is nonspecific. Electronically signed by: Casi Elam MD 08/05/24 00:18 AM
--- NOTE | 2024-08-05 00:25 | CT Scan Report ---
Exam(s): CT C SPINE EXAM: CT Cervical Spine Without Intravenous Contrast CLINICAL HISTORY: Injury. TECHNIQUE: Axial computed tomography images of the cervical spine without intravenous contrast. CTDI is 37 mGy and DLP is 1184 mGy-cm. Automated exposure control was utilized for the study. A dose lowering technique was utilized adhering to the principles of ALARA. COMPARISON: No relevant prior studies available. FINDINGS: Vertebrae: Mild degenerative endplate changes are noted. No acute finding of the cervical spine. Discs/spinal canal/neural foramina: No acute findings. No spinal canal stenosis. Soft tissues: Unremarkable. IMPRESSION: No acute finding of the cervical spine. Electronically signed by: Casi Elam MD 08/05/24 00:24 AM
--- NOTE | 2024-08-05 00:31 | CT Scan Report ---
Exam(s): CT CHEST With Contrast IV Amt: 90 cc opti 320 EXAM: CT Chest With Intravenous Contrast CLINICAL HISTORY: Fall. TECHNIQUE: Axial computed tomography images of the chest with intravenous contrast. CTDI is 37 mGy and DLP is 1184 mGy-cm. Automated exposure control was utilized for the study. A dose lowering technique was utilized adhering to the principles of ALARA. CONTRAST: Patient received 90 cc opti 320 of IV contrast COMPARISON: No relevant prior studies available. FINDINGS: Lungs: Interseptal thickening at the periphery of the lungs is concerning for interstitial lung disease. No mass. No pulmonary embolus. No consolidation. Pleural space: Unremarkable. No pneumothorax. No significant effusion. Heart: Coronary artery calcifications are present. No cardiomegaly. No significant pericardial effusion. Bones/joints: Degenerative changes are noted. No acute fracture. No dislocation. Soft tissues: Unremarkable. Vasculature: There is dilation of the pulmonary arteries. The main pulmonary artery measures 4.6 cm. Mild atherosclerosis. Lymph nodes: Unremarkable. No enlarged lymph nodes. IMPRESSION: 1. No pulmonary embolus. 2. There is dilation of the pulmonary arteries. This is concerning for pulmonary artery hypertension. 3. Interseptal thickening at the periphery of the lungs is concerning for interstitial lung disease. Cannot exclude pulmonary edema. Electronically signed by: Casi Elam MD 08/05/24 00:30 AM
--- NOTE | 2024-08-05 00:36 | CT Scan Report ---
Exam(s): CT HEAD Without Contrast EXAM: CT Head Without Intravenous Contrast CLINICAL HISTORY: Fall. TECHNIQUE: Axial computed tomography images of the head/brain without intravenous contrast. CTDI is 37 mGy and DLP is 1184 mGy-cm. Automated exposure control was utilized for the study. A dose lowering technique was utilized adhering to the principles of ALARA. COMPARISON: No relevant prior studies available. FINDINGS: Brain: No intracranial hemorrhage, mass-effect or midline shift. No abnormal extra axial fluid. No evidence of acute infarct. Mild periventricular white matter hypodensities are most consistent with chronic microangiopathy. There is encephalomalacia of the left parietal lobe. Ventricles: Unremarkable. No ventriculomegaly. Bones/joints: Unremarkable. No acute fracture. Soft tissues: Unremarkable. Sinuses: Unremarkable as visualized. No acute sinusitis. Mastoid air cells: Unremarkable as visualized. No mastoid effusion. IMPRESSION: No acute intracranial finding. Electronically signed by: Casi Elam MD 08/05/24 00:36 AM
--- NOTE | 2024-08-05 01:26 | Surgery Consultation ---
Date of Consultation August 05, 2024 Assessment & Plan (1) History of small bowel obstruction: I discussed with the treating emergency room physician and the patient is being admitted on the hospital service. From surgery perspective we recommend the following: Patient has had multiple small bowel obstructions in the past requiring surgical intervention underlying one of them. The patient's most recent several small bowel obstructions did require nothing other than conservative management. At the present time the patient is normotensive without tachycardia or fever. He does not appear toxic and is not in acute kidney injury and also does not have an elevated lactic acid and therefore I feel conservative measures are warranted at this time Would recommend keeping the patient n.p.o. consideration be given to advancing his diet beginning with clear liquids as his symptoms improve Would recommend hydrating with IV fluids Antiemetics to be provided if needed I did discuss with the patient the possibility of an NG tube at the present time he wishes to hold off on this. I did discuss with him that if he has worsening of his abdominal exam or any emesis ensues this modality will need to be reconsidered Additional recommendations be forthcoming based on his clinical course as it unfolds Addendum (5:20 AM) Patient revisited at the bedside. Since arrival to the floor he notes that he continues to have both gas and stool output from his ostomy and he feels notably improved from what was noted at time of admission. He has not had any nausea or vomiting. No fevers noted. He denies any worsening abdominal pain. Will continue with the plan as outlined above with additional recommendations to follow based on his clinical course as it unfolds as above. currently feeling well. stoma started functioning. solid brown stool. no abd pain or nausea. primarily concerned with hematuria...urology consulted will advance to clears. pt known to me...surgical intervention would be last resort. History of Present Illness Reason for Consultation: Small bowel obstruction History of Present Illness This is an 88-year-old male who has been admitted to [facility] multiple times secondary to small bowel obstruction. The patient's most recent admission to the hospital was in April of this year at which time the patient had a small bowel obstruction that was treated successfully in a conservative manner without surgery. Prior to April the patient's most recent admission for small bowel obstruction was in August 2023 and again was treated conservative manner. It is nowhere the mention the patient was seen as outpatient by Dr. Colin Verdin of [facility] physician group general surgery in September of this year secondary to his recurrent small bowel obstructions and it was felt that as his small bowel obstructions normally resolve in a conservative manner surgery should be reserved for last resort due to his a dvanced age and multiple medical comorbidities. Patient presented to the emergency department today as he developed some generalized abdominal pain at approximately 3:00 PM on 08/04/2024. The patient says that he did not have any fevers, shakes, or chills. He had nausea without any emesis. He does note that he has had 2 abdominal surgeriesapproximately 40 years ago he had a colon resection secondary to colon cancer and he does have a colostomy secondary to this. Approximate 5 to 6 years ago he did have surgical intervention for a small bowel obstruction. He does note that his most recent output from his colostomy prior to admission was at approximate 9:00 AM when he had some stool output. Since arrival to the emergency department the patient has had labs and imaging which I independent reviewed. A head CT scan that showed no acute intracranial process. A CT scan of the chest showed concern for interstitial lung disease but no pulmonary emboli or pneumonia was present. Cervical spine CT scan showed no acute findings in the cervical spine. CT scan of the abdomen pelvis that showed concern for small bowel obstruction with some fecalization of the more distal small bowel. The transition point was identified left mid abdomen. Labs included a CBC were white blood cell count had a slight elevation 11.1. Hemoglobin and hematocrit as well as platelet count were normal. Coagulation studies were normal. Chemistry profile showed sodium and potassium as well as the BUN and creatinine were normal. He did have a lactic acid level that was nonelevated at 1.5. A urinalysis was not indicative of infection. Since arrival to the emergency department patient has a his abdominal pain has improved merely with hydration measures. He has noted some considerable gas output from his ostomy and his symptomatology has improved. Allergies Allergy/AdvReac Type Severity Reaction Status Date / Time tetanus toxoid, adsorbed Allergy Intermediate BLISTERS Verified 07/06/24 10:59 AND EYES SWELLING hydromorphone AdvReac Intermediate HALLUCINATI Verified 07/06/24 10:59 ONS lorazepam AdvReac Intermediate HALLUCINATI Verified 07/06/24 10:59 ONS Home Medications Medication Instructions Recorded Confirmed Type mecobalamin (vitamin B12) 1,000 1,000 mcg PO QPM 07/23/20 08/05/24 History mcg chewable tablet cholecalciferol (vitamin D3) 50 50 mcg PO QAM 12/10/20 08/05/24 History mcg (2,000 unit) capsule [id number] 300 mcg-K 60 1 tab PO QAM 12/10/20 08/05/24 History mcg-lycop 600 mcg-lutein 300 mcg tablet (Centrum Silver Men) aspirin 81 mg tablet,delayed 81 mg PO DAILY #30 tabs 05/29/22 08/05/24 Rx release (Adult Low Dose Aspirin) empagliflozin 25 mg tablet 25 mg PO DAILY #90 tabs 08/13/23 08/05/24 Rx pantoprazole 40 mg tablet,delayed 40 mg PO BID 08/16/23 08/05/24 History release metoprolol succinate 50 mg 75 mg (1.5 x 50 mg) PO DAILY #120 01/13/24 08/05/24 Rx tablet,extended release 24 hr tabs levothyroxine 50 mcg tablet 50 mcg PO . ABOUT LUNCHTIME #90 03/28/24 08/05/24 Rx tabs simvastatin 40 mg tablet 40 mg PO PM #90 tabs 03/28/24 08/05/24 Rx diltiazem HCl 120 mg 120 mg PO DAILY #90 caps 04/04/24 08/05/24 Rx capsule,extended release 24 hr (Cartia XT) metformin 500 mg tablet,extended 500 mg PO QPM #90 tabs 05/03/24 08/05/24 Rx release 24 hr rivaroxaban 15 mg tablet (Xarelto) 15 mg PO QDD 1 month #90 tabs 05/09/24 Rx glipizide 5 mg tablet, extended 5 mg PO QAM #90 tabs 06/26/24 08/05/24 Rx release 24 hr Patient History Medical History Wernicke's aphasia CVA (cerebral vascular accident) Classic migraine Hiatal hernia Cerebellar hemorrhage CKD (chronic kidney disease) Hypertrophy of both inferior nasal turbinates Chronic rhinitis Rotator cuff tear Per MRI 02/2020. Followed by orthopedics. Declined operative management. 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 History of colon cancer 1978 Surgical History H/O hernia repair Hx of abdominal surgery bowel obstruction History of total right hip replacement Hx of vasectomy History of colostomy History of bowel resection for colon cancer History of colonoscopy History of esophagogastroduodenoscopy (EGD) 06/2021 Hiatal hernia small, gastritis Status post Mohs surgery for basal cell carcinoma History of root canal procedure History of wisdom tooth extraction History of tonsillectomy and adenoidectomy History of phacoemulsification of cataract of both eyes with intraocular lens implantation History of cardioversion x2 Family History Father , age 91 Hypertension Diabetes Mother , age 64 metastatic breast cancer Breast cancer Ovarian cancer Brother Colorectal cancer Other Coronary heart disease No family history of adverse response to anesthesia Denies family history of Prostate cancer Crohn's disease Myocardial infarction Lung cancer Inflammatory bowel disease Social History Smoking Status: Former smoker Tobacco Type: Pipe Age Started Using Tobacco: 22; Age Quit Using Tobacco: 52; Second Hand Exposure: Yes; Do You Dip or Chew Tobacco: No; Tobacco Cessation Education Requested by Patient: No Hx Alcohol Use: No Hx Substance Use: No Preferred Language: Welsh Communication Ability: Effective Visual Impairment: Diminished Hearing Ability: Normal Editor Map Required: No Beliefs That Will Affect Care: None marital status: Current Living Situation: Spouse Current Living Situation Comment: lives in home with , son lives in area and helps current occupational 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[employer], [employer] How many Children do You have: 1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 That Helps Us Care for You: No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 Feels Safe at Home: Yes Safety Concerns: Feels Safe At This Time Childhood Exposure to Second-Hand Smoke: Yes (father smoked in home ) Diet: regular Diet Comment: low fiber caffeine: Yes (drinks coffee daily about half a cup ) Dental Care, Regularly: Yes Physical Activity Frequency: 3-4 Times per Week Physical Activity Frequency Comment: 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 Seatbelt Use: always Sunscreen Use: No (says he does cover up well ) Do you think of yourself as: straight/heterosexual Assistive Devices: Cane and Glasses Review of Systems Review of Systems: All systems reviewed & are unremarkable except as noted in HPI & below Physical Exam Constitutional: WD/WN, vitals as above Eyes: no conjunctival abnormality ENMT: Ears: no hearing impairment and no external ear abnormality Mouth: no oropharynx abnormality Neck: trachea midline Respiratory: normal respiratory effort; no respiratory distress and no labored breathing Cardiovascular: Rate/Rhythm: regular rate and regular rhythm Gastrointestinal (Abdomen): Abdomen has mild distention noted. At the time of my interview it was nonrigid and did not have any tenderness to palpation. There was some slight tympany noted. There is no rebound tenderness or guarding. The patient has an ostomy in the left lower quadrant of his abdomen which is pink and viable. There is a very small amount of stool in the collection bag but there is considerable amount of air in the collection bag. Musculoskeletal: No calf tenderness Skin: no rashes Neurologic: moves all extremities Results & Data Vital Signs (Past 12 Hours) Vital Signs Temp Pulse Pulse Resp BP BP Pulse Ox 08/05/24 00:56 73 08/05/24 00:00 90 20 144/80 H 95 08/04/24 23:00 78 20 120/94 94 08/04/24 23:00 73 18 120/94 94 08/04/24 22:06 73 22 165/99 H 97 08/04/24 20:32 88 18 97 08/04/24 20:32 71 18 151/92 H 97 08/04/24 20:29 72 08/04/24 20:14 36.2 C L 98 H 19 169/93 H O2 Del Method 08/05/24 00:56 08/05/24 00:00 Room Air 08/04/24 23:00 Room Air 08/04/24 23:00 Room Air 08/04/24 22:06 Room Air 08/04/24 20:32 Room Air 08/04/24 20:32 08/04/24 20:29 08/04/24 20:14 PG Care Time/CCT Total # of Minutes Spent Total Time Spent with Patient: Total time spent is greater than 50% in coordination of care (as documented) at patient's floor/unit and/or counseling patient: Coding Level of Care Code 93450 INT INP/OBS CARE MIN Diagnoses History of small bowel obstruction Z87.19
--- NOTE | 2024-08-05 01:49 | History & Physical Report ---
Date of Service August 05, 2024 Assessment & Plan (1) Small bowel obstruction due to adhesions: (2) Atrial fibrillation: (3) On anticoagulant therapy: (4) H/O: stroke with residual effects: (5) Expressive aphasia: (6) Memory deficits: (7) Balance disorder: (8) History of small bowel obstruction: (9) Hypertension: (10) Diabetes mellitus, type 2: Plan Recurrent small bowel obstruction, likely secondary to adhesions/presence of ostomy left lower quadrant- CT scan notes transition point in left mid abdomen NPO except a few ice chips Hold on NG tube at this time Zofran 4 mg IV every 6 hours as needed Pantoprazole 40 mg IV daily Acetaminophen 1 g IV every 8 hours as needed for mild pain or fever Zosyn 4.5 g IV every 8 hours Morphine sulfate 2 mg IV every 3 hours as needed for moderate to severe pain Status post 1 L normal saline bolus from the ED Continue NSS at 80 mL/h x 2 L General Surgery consult Atrial fibrillation/hypertension/chronic anticoagulation- N.p.o. including holding Xarelto, aspirin, diltiazem and metoprolol succinate Hydralazine 10 mg IV every 4 hours as needed for systolic blood pressure greater than 160 If he remains n.p.o., may decide to start heparin infusion at that time to replace Xarelto Diabetes mellitus- Hold empagliflozin, glipizide, metformin Placed on Accu-Cheks with NovoLog SSI Check hemoglobin A1c Acute kidney injury superimposed on CKD- Creatinine 1.36, with base 1.19 IV fluids as noted above Recheck laboratories in a.m. History of Present Illness Chief Complaint: The patient presents to the emergency department with acute onset of abdominal pain in the midepigastric and left lower quadrant area over his ostomy since about 10:00 this morning. Primary Care Provider: Romulo Barker DO The patient is an 88-year-old male with a past medical history including hypertension, atrial fibrillation, 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 The patient presents to the emergency department with symptoms similar to previous small bowel obstructions. He reports distention over his ostomy and increasing air developed since 10:00 this morning. He denies associated fevers or chills, but does notice generalized fatigue. He has had some nausea but has not vomited Allergies Allergy/AdvReac Type Severity Reaction Status Date / Time tetanus toxoid, adsorbed Allergy Intermediate BLISTERS Verified 07/06/24 10:59 AND EYES SWELLING hydromorphone AdvReac Intermediate HALLUCINATI Verified 07/06/24 10:59 ONS lorazepam AdvReac Intermediate HALLUCINATI Verified 07/06/24 10:59 ONS Home Medications Medication Instructions Recorded Confirmed Type mecobalamin (vitamin B12) 1,000 1,000 mcg PO QPM 07/23/20 08/05/24 History mcg chewable tablet cholecalciferol (vitamin D3) 50 50 mcg PO QAM 12/10/20 08/05/24 History mcg (2,000 unit) capsule [id number] 300 mcg-K 60 1 tab PO QAM 12/10/20 08/05/24 History mcg-lycop 600 mcg-lutein 300 mcg tablet (Centrum Silver Men) aspirin 81 mg tablet,delayed 81 mg PO DAILY #30 tabs 05/29/22 08/05/24 Rx release (Adult Low Dose Aspirin) empagliflozin 25 mg tablet 25 mg PO DAILY #90 tabs 08/13/23 08/05/24 Rx pantoprazole 40 mg tablet,delayed 40 mg PO BID 08/16/23 08/05/24 History release metoprolol succinate 50 mg 75 mg (1.5 x 50 mg) PO DAILY #120 01/13/24 08/05/24 Rx tablet,extended release 24 hr tabs levothyroxine 50 mcg tablet 50 mcg PO . ABOUT LUNCHTIME #90 03/28/24 08/05/24 Rx tabs simvastatin 40 mg tablet 40 mg PO PM #90 tabs 03/28/24 08/05/24 Rx diltiazem HCl 120 mg 120 mg PO DAILY #90 caps 04/04/24 08/05/24 Rx capsule,extended release 24 hr (Cartia XT) metformin 500 mg tablet,extended 500 mg PO QPM #90 tabs 05/03/24 08/05/24 Rx release 24 hr rivaroxaban 15 mg tablet (Xarelto) 15 mg PO QDD 1 month #90 tabs 05/09/24 08/05/24 Rx glipizide 5 mg tablet, extended 5 mg PO QAM #90 tabs 06/26/24 08/05/24 Rx release 24 hr Past Med/Surg History Problem List (Updated 08/05/24 @ 04:27 by Jluis Mcqueen MD) Small bowel obstruction due to adhesions CHLOE (iron deficiency anemia) Hypertension Atrial fibrillation Mitral regurgitation On anticoagulant therapy xarelto daily H/O: stroke with residual effects Expressive aphasia Memory deficits Balance disorder History of small bowel obstruction Hypothyroidism Diabetes mellitus, type 2 Hyperlipidemia Gout GERD (gastroesophageal reflux disease) Medical History Wernicke's aphasia CVA (cerebral vascular accident) Classic migraine Hiatal hernia Cerebellar hemorrhage CKD (chronic kidney disease) Hypertrophy of both inferior nasal turbinates Chronic rhinitis Rotator cuff tear Per MRI 02/2020. Followed by orthopedics. Declined operative management. 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 History of colon cancer 1978 Surgical History H/O hernia repair Hx of abdominal surgery bowel obstruction History of total right hip replacement Hx of vasectomy History of colostomy History of bowel resection for colon cancer History of colonoscopy History of esophagogastroduodenoscopy (EGD) 06/2021 Hiatal hernia small, gastritis Status post Mohs surgery for basal cell carcinoma History of root canal procedure History of wisdom tooth extraction History of tonsillectomy and adenoidectomy History of phacoemulsification of cataract of both eyes with intraocular lens implantation History of cardioversion x2 Family History Father , age 91 Hypertension Diabetes Mother , age 64 metastatic breast cancer Breast cancer Ovarian cancer Brother Colorectal cancer Other Coronary heart disease No family history of adverse response to anesthesia Denies family history of Prostate cancer Crohn's disease Myocardial infarction Lung cancer Inflammatory bowel disease Social History Smoking Status: Former smoker Tobacco Type: Pipe Age Started Using Tobacco: 22; Age Quit Using Tobacco: 52; Second Hand Exposure: Yes; Do You Dip or Chew Tobacco: No; Tobacco Cessation Education Requested by Patient: No Hx Alcohol Use: No Hx Substance Use: No Preferred Language: Eritrean Communication Ability: Effective Visual Impairment: Diminished Hearing Ability: Normal Housecleaner Floor Required: No Beliefs That Will Affect Care: None marital status: Current Living Situation: Spouse Current Living Situation Comment: lives in home with , son lives in area and helps current occupational 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[employer], [employer] How many Children do You have: 1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 That Helps Us Care for You: No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 Feels Safe at Home: Yes Safety Concerns: Feels Safe At This Time Childhood Exposure to Second-Hand Smoke: Yes (father smoked in home ) Diet: regular Diet Comment: low fiber caffeine: Yes (drinks coffee daily about half a cup ) Dental Care, Regularly: Yes Physical Activity Frequency: 3-4 Times per Week Physical Activity Frequency Comment: 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 Seatbelt Use: always Sunscreen Use: No (says he does cover up well ) Do you think of yourself as: straight/heterosexual Assistive Devices: Cane and Glasses Review of Systems Review of Systems: The patient denies chest pain, palpitations, shortness of breath, dyspnea on exertion, cough, lower extremity swelling, sore throat, fevers, chills, sweats, vomiting, blood in stool, dysuria, urinary frequency or urgency, lightheadedness, dizziness, headache, loss of consciousness, rash, focal or generalized weakness, numbness or tingling in arms or legs, generalized arthralgias or myalgias, back or neck pain, or night sweats. The review of systems is otherwise negative other than for that already noted above, and at least 10 systems have been reviewed. Physical Exam Physical Exam: The patient is awake, alert and oriented 3, well developed and well nourished, has slow speech with intermittent pauses while gathering his thoughts, lying in bed and in no acute distress. HEENT--PERRL, EOMI, mucous membranes and oropharynx mildly dry. Neck--supple. No JVD. No bruits. Thyroid normal, trachea midline, no adenopathy. Heart--normal S1 and S2. No murmurs, rubs or gallops. Lungs--clear bilaterally, no respiratory distress, no accessory muscle use. Abdomen--normal bowel sounds and soft. Left lower quadrant ostomy bag mild AR without stool Extremities--no cyanosis or clubbing. No edema. Dermatologic--normal skin turgor, normal color, no abnormal lymph nodes, no rash. Neurologic--cranial nerves II through XII grossly intact. Rheumatologic--normal range of motion. Psychiatric--normal affect. Results & Data Results & Data Vital Signs (Past 12 Hours) Vital Signs Temp Pulse Pulse Resp BP BP Pulse Ox 08/05/24 01:00 76 20 133/83 94 08/05/24 00:56 73 08/05/24 00:00 90 20 144/80 H 95 08/04/24 23:00 78 20 120/94 94 08/04/24 23:00 73 18 120/94 94 08/04/24 22:06 73 22 165/99 H 97 08/04/24 20:32 88 18 97 08/04/24 20:32 71 18 151/92 H 97 08/04/24 20:29 72 08/04/24 20:14 36.2 C L 98 H 19 169/93 H O2 Del Method 08/05/24 01:00 Room Air 08/05/24 00:56 08/05/24 00:00 Room Air 08/04/24 23:00 Room Air 08/04/24 23:00 Room Air 08/04/24 22:06 Room Air 08/04/24 20:32 Room Air 08/04/24 20:32 08/04/24 20:29 08/04/24 20:14 Laboratory Results Laboratory Results WBC 11.18 K/ul (4.8-10.8) H 08/04/24 20:34 RBC 5.38 M/uL (4.70-6.10) 08/04/24 20:34 Hgb 15.8 g/dl (14.0-18.0) 08/04/24 20:34 Hct 48.1 % (42.0-52.0) 08/04/24 20:34 MCV 89.4 fL (80.0-100.0) 08/04/24 20:34 MCH 29.4 pg (25.0-34.0) 08/04/24 20:34 MCHC 32.8 g/dL (32.0-36.0) 08/04/24 20:34 RDW Std Deviation 44.7 fL (36.4-46.3) 08/04/24 20:34 RDW Coeff of [place] 13.9 % (11.5-14.5) 08/04/24 20:34 Plt Count 242 K/uL (130-400) 08/04/24 20:34 MPV 8.7 fL (9.4-12.4) L 08/04/24 20:34 Immature Gran % (Auto) 0.5 % 08/04/24 20:34 Neut % (Auto) 73.3 % 08/04/24 20:34 Lymph % (Auto) 12.7 % 08/04/24 20:34 [place] % (Auto) 9.5 % 08/04/24 20:34 Eos % (Auto) 3.4 % 08/04/24:34 Baso % (Auto) 0.6 % 08/04/24 20:34 Neut # (Auto) 8.19 K/uL (1.40-6.50) H 08/04/24 20:34 Lymph # (Auto) 1.42 K/uL (1.20-3.40) 08/04/24 20:34 [place] # (Auto) 1.06 K/uL (0.11-0.59) H 08/04/24 20:34 Eos # (Auto) 0.38 K/uL (0.00-0.50) 08/04/24 20:34 Baso # (Auto) 0.07 K/uL (0.00-0.20) 08/04/24 20:34 Immature Gran # (Auto) 0.06 K/uL (0.01-0.20) 08/04/24 20:34 PT 12.0 Seconds (9.0-12.0) 08/04/24 20:34 INR 1.1 (0.9-1.1) 08/04/24 20:34 Sodium 136 mmol/L (136-145) 08/04/24 20:34 Potassium 4.5 mmol/L (3.5-5.1) 08/04/24 20:34 Chloride 101 mmol/L (98-107) 08/04/24 20:34 Carbon Dioxide 28 mmol/L (21-32) 08/04/24 20:34 Anion Gap 7 (3-11) 08/04/24 20:34 BUN 14 mg/dl (6-23) 08/04/24 20:34 Creatinine 1.36 mg/dl (0.6-1.4) 08/04/24 20:34 Est Cr Clr Drug Dosing 40.3 ml/min 08/04/24 20:34 eGFR 50.68 08/04/24 20:34 BUN/Creatinine Ratio 10.3 (10-20) 08/04/24 20:34 Glucose 195 mg/dl (70-99(Fasting)) H 08/04/24 20:34 POC Glucose 138 mg/dl (70-99) H 08/05/24 04:14 Lactate 1.5 mmol/L (0.4-2.0) 08/04/24 20:44 Calcium 9.5 mg/dl (8.6-10.3) 08/04/24 20:34 Total Bilirubin 0.7 mg/dl (0.2-1.0) 08/04/24 20:34 AST 16 U/L (13-39) 08/04/24 20:34 ALT 10 U/L (7-52) 08/04/24 20:34 Alkaline Phosphatase 79 U/L (34-104) 08/04/24 20:34 Troponin I High Sens 10.4 pg/ml (0-20) 08/04/24 20:34 Total Protein 7.3 gm/dl (6.0-8.3) 08/04/24 20:34 Albumin 4.5 gm/dl (3.4-5.0) 08/04/24 20:34 Globulin 2.8 gm/dl (2.5-4.0) 08/04/24 20:34 Albumin/Globulin Ratio 1.6 (0.9-2) 08/04/24 20:34 Lipase 29 U/L (11-82) 08/04/24 20:34 Urine Color Yellow 08/04/24 Unknown Urine Appearance Clear (Clear) 08/04/24 Unknown Urine pH 6.5 (4.5-7.5) 08/04/24 Unknown Ur Specific [place] > 1.045 (1.000-1.030) H 08/04/24 Unknown Urine Protein 1+ (Negative) H 08/04/24 Unknown Urine Glucose (UA) 3+ (Negative) H 08/04/24 Unknown Urine Ketones 1+ (Negative) H 08/04/24 Unknown Urine Blood 2+ (Negative) H 08/04/24 Unknown Urine Nitrite Negative (Negative) 08/04/24 Unknown Urine Bilirubin Negative (Negative) 08/04/24 Unknown Urine Urobilinogen Negative (Negative) 08/04/24 Unknown Ur Leukocyte Esterase Negative (Negative) 08/04/24 Unknown Urine WBC (Auto) 0-5 /hpf (0-5) 08/04/24 Unknown Urine RBC (Auto) >20 /hpf (0-2) H 08/04/24 Unknown U Hyaline Cast (Auto) 0-2 /lpf (0-2) 08/04/24 Unknown U Epithel Cells (Auto) 0-2 /hpf (0-2) 08/04/24 Unknown Urine Bacteria (Auto) None Seen (None Seen) 08/04/24 Unknown Impressions Abdomen/Pelvis CT 08/04/24 20:28 Exam(s): CT ABDOMEN + PELVIS With Contrast IV Amt: 90 cc opti 320 EXAM: CT Abdomen and Pelvis With Intravenous Contrast CLINICAL HISTORY: Abdominal Pain. TECHNIQUE: Axial computed tomography images of the abdomen and pelvis with intravenous contrast. CTDI is 37 mGy and DLP is 1184 mGy-cm. Automated exposure control was utilized for the study. A dose lowering technique was utilized adhering to the principles of ALARA. CONTRAST: Patient received 90 cc opti 320 of IV contrast COMPARISON: CT abdomen and pelvis 04/15/2024. FINDINGS: Lung bases: Unremarkable. No mass. No consolidation. ABDOMEN: Liver: Unremarkable. No mass. Gallbladder and bile ducts: Cholelithiasis. No ductal dilation. Pancreas: Unremarkable. No mass. No ductal dilation. Spleen: Unremarkable. No splenomegaly. Adrenals: Unremarkable. No mass. Kidneys and ureters: Simple appearing bilateral renal cysts are present, no follow up is needed. The kidneys are otherwise unremarkable. No hydronephrosis. Stomach and bowel: Small bowel obstruction with fecalization of the more distal bowel. A transition point in the left mid abdomen is noted. No mucosal thickening. PELVIS: Appendix: Normal appendix. Bladder: Unremarkable. No mass. Reproductive: Unremarkable as visualized. ABDOMEN and PELVIS: Intraperitoneal space: Unremarkable. No free air. No significant fluid collection. Bones/joints: There are degenerative changes of the spine. No acute fracture. There is a right hip prosthesis. No dislocation. Soft tissues: There is a small fat-containing hernia of the left lateral abdominal wall. Small bilateral fat-containing inguinal hernias. There is a left lower quadrant colostomy with a small amount of fluid within the hernia sac. Vasculature: Mild atherosclerosis. No abdominal aortic aneurysm. Lymph nodes: Unremarkable. No enlarged lymph nodes. IMPRESSION: 1. Small bowel obstruction with fecalization of the more distal bowel. A transition point in the left mid abdomen is noted. This most consistent with acute on chronic small bowel obstruction. 2. Cholelithiasis. 3. There is a left lower quadrant colostomy with a small amount of fluid within the hernia sac. This is nonspecific. Electronically signed by: Casi Elam MD 08/05/24 00:[address] 08/04/24 21:31 Exam(s): CT C SPINE EXAM: CT Cervical Spine Without Intravenous Contrast CLINICAL HISTORY: Injury. TECHNIQUE: Axial computed tomography images of the cervical spine without intravenous contrast. CTDI is 37 mGy and DLP is 1184 mGy-cm. Automated exposure control was utilized for the study. A dose lowering technique was utilized adhering to the principles of ALARA. COMPARISON: No relevant prior studies available. FINDINGS: Vertebrae: Mild degenerative endplate changes are noted. No acute finding of the cervical spine. Discs/spinal canal/neural foramina: No acute findings. No spinal canal stenosis. Soft tissues: Unremarkable. IMPRESSION: No acute finding of the cervical spine. Electronically signed by: Casi Elam MD 08/05/24 00:[address] 08/04/24 21:31 Exam(s): CT CHEST With Contrast IV Amt: 90 cc opti 320 EXAM: CT Chest With Intravenous Contrast CLINICAL HISTORY: Fall. TECHNIQUE: Axial computed tomography images of the chest with intravenous contrast. CTDI is 37 mGy and DLP is 1184 mGy-cm. Automated exposure control was utilized for the study. A dose lowering technique was utilized adhering to the principles of ALARA. CONTRAST: Patient received 90 cc opti 320 of IV contrast COMPARISON: No relevant prior studies available. FINDINGS: Lungs: Interseptal thickening at the periphery of the lungs is concerning for interstitial lung disease. No mass. No pulmonary embolus. No consolidation. Pleural space: Unremarkable. No pneumothorax. No significant effusion. Heart: Coronary artery calcifications are present. No cardiomegaly. No significant pericardial effusion. Bones/joints: Degenerative changes are noted. No acute fracture. No dislocation. Soft tissues: Unremarkable. Vasculature: There is dilation of the pulmonary arteries. The main pulmonary artery measures 4.6 cm. Mild atherosclerosis. Lymph nodes: Unremarkable. No enlarged lymph nodes. IMPRESSION: 1. No pulmonary embolus. 2. There is dilation of the pulmonary arteries. This is concerning for pulmonary artery hypertension. 3. Interseptal thickening at the periphery of the lungs is concerning for interstitial lung disease. Cannot exclude pulmonary edema. Electronically signed by: Casi Elam MD 08/05/24 00:[address] 08/04/24 21:31 Exam(s): CT HEAD Without Contrast EXAM: CT Head Without Intravenous Contrast CLINICAL HISTORY: Fall. TECHNIQUE: Axial computed tomography images of the head/brain without intravenous contrast. CTDI is 37 mGy and DLP is 1184 mGy-cm. Automated exposure control was utilized for the study. A dose lowering technique was utilized adhering to the principles of ALARA. COMPARISON: No relevant prior studies available. FINDINGS: Brain: No intracranial hemorrhage, mass-effect or midline shift. No abnormal extra axial fluid. No evidence of acute infarct. Mild periventricular white matter hypodensities are most consistent with chronic microangiopathy. There is encephalomalacia of the left parietal lobe. Ventricles: Unremarkable. No ventriculomegaly. Bones/joints: Unremarkable. No acute fracture. Soft tissues: Unremarkable. Sinuses: Unremarkable as visualized. No acute sinusitis. Mastoid air cells: Unremarkable as visualized. No mastoid effusion. IMPRESSION: No acute intracranial finding. Electronically signed by: Casi Elam MD 08/05/24 00:36 AM Code Status & VTE Plan Code Status DNR/DNI VTE Prophylaxis Plan VTE Prophylaxis will be ordered: Yes PG Care Time/CCT Total # of Minutes Spent Total Time Spent with Patient: Total time spent is greater than 50% in coordination of care (as documented) at patient's floor/unit and/or counseling patient: Coding Level of Care Code 77703 INT INP/OBS CARE 3/75MIN Diagnoses Small bowel obstruction due to adhesions K56.50 Atrial fibrillation I48.91 On anticoagulant therapy Z79.01 H/O: stroke with residual effects I69.30 Expressive aphasia R47.01 Memory deficits R41.3 Balance disorder R26.89 History of small bowel obstruction Z87.19 Hypertension I10 Diabetes mellitus, type 2 E11.9
[2024-08-05] MEDS ORDERED: CARBOHYDRATES FOR HYPOGLYCEMIA PO PRN (03:53)
[2024-08-05] MEDS ORDERED: DEXTROSE 50% 50 ML SYRINGE IV PRN (03:53)
[2024-08-05] MEDS ORDERED: ACETAMINOPHEN 1,000 MG/100 ML VIAL IV PRN (03:53)
[2024-08-05] MEDS ORDERED: ONDANSETRON INJ 2 MG/ML 2 ML VIAL IV PRN ×2 (03:53)
[2024-08-05] MEDS ORDERED: hydrALAZINE HCL 20 MG/ML VIAL IV PRN (03:53)
[2024-08-05] MEDS ORDERED: GLUCAGON FOR INJ 1 MG VIAL SQ PRN (03:53)
[2024-08-05] MEDS ORDERED: GLUCOSE 40% GEL 15 GM TUBE PO PRN (03:53)
[2024-08-05] MEDS ORDERED: GLUCOSE 10 TAB/TUBE PO PRN (03:53)
[2024-08-05] MEDS ORDERED: MoRPHine SULFATE 2 MG/ML CARP IV PRN (03:53)
[2024-08-05] MEDS: SODIUM CHLORIDE 0.9% 1,000 ML IV SCH (04:15)
[2024-08-05] MEDS: 4.5GM X1 IV STA (04:46)
[2024-08-05] MEDS: INSULIN ASPART PER UNIT CHARGE SC SCH ×2 (05:58→17:04)
[2024-08-05 06:03] LABS: Basophils # (auto) 0.05 K/uL (0.00-0.20); Basophils % (auto) 0.7 %; Eosinophils # (auto) 0.17 K/uL (0.00-0.50); Eosinophils % (auto) 2.3 %; Hematocrit (blood only) 41.1 % (42.0-52.0); Hemoglobin 13.4 g/dl (14.0-18.0); Immature Granulocytes # (auto) 0.05 K/uL (0.01-0.20); Immature Granulocytes % (auto) 0.7 %; Lymphocytes # (auto) 0.87 K/uL (1.20-3.40); Lymphocytes % (auto) 11.7 %; Mean Corpuscular Hemoglobin 29.2 pg (25.0-34.0); Mean Corpuscular Hgb Conc 32.6 g/dL (32.0-36.0); Mean Corpuscular Volume 89.5 fL (80.0-100.0); Mean Platelet Volume 8.9 fL (9.4-12.4); Monocytes % (auto) 10.8 %; Neutrophils % (auto) 73.8 %; Platelet Count 185 K/uL (130-400); RDW Standard Deviation 45.6 fL (36.4-46.3); Red Blood Count 4.59 M/uL (4.70-6.10); White Blood Count 7.44 K/ul (4.8-10.8)
[2024-08-05 06:34] LABS: Albumin Globulin Ratio 1.4 (0.9-2); Albumin Level 3.4 gm/dl (3.4-5.0); BUN Creatinine Ratio 11.1 (10-20); Bilirubin,Total 0.7 mg/dl (0.2-1.0); Calcium 8.3 mg/dl (8.6-10.3); Creatinine Clr Calc Pharmacy 46.8 ml/min; Globulin 2.4 gm/dl (2.5-4.0); Magnesium 2.1 mg/dl (1.7-2.4); Potassium 4.2 mmol/L (3.5-5.1); Total Protein 5.8 gm/dl (6.0-8.3)
--- NOTE | 2024-08-05 07:55 | Hospitalist Progress Note ---
Date of Service August 05, 2024 Assessment & Plan (1) Small bowel obstruction due to adhesions: Plan: NPO, IV fluids, can likely advance to clear liquids but awaiting surgery to see today, will restart PO meds as long as tolerating liquids I do not see and indication for IV Zosyn therefore this is discontinued Consult general surgery (2) Hematuria: Plan: Last took Xarelto 12/20 AM Consult urology (3) Diabetes mellitus, type 2: Plan: HbA1C 7.6 Holding PO meds Continue Novolog: --Goal BSG Range: Low 120_mg/dL, High 160_mg/dL --Correction Factor: 50_mg/dL/unit --Carbohydrate ratio = _20_ g/unit --BSGs ACHS if eating, q6h if npo (4) H/O: stroke with residual effects: (5) Atrial fibrillation: (6) On anticoagulant therapy: (7) Expressive aphasia: (8) Memory deficits: (9) Balance disorder: (10) History of small bowel obstruction: (11) Hypertension: Plan VTE Prophyalxis - plan to restart Xarelto on hematuria resolves Diet - NPO Disposition - continue on med/surg Admission and Anticipated Discharge Date Admission Date: August 05, 2024 Subjective Started having hematuria this morning. Urinating otherwise normally without dysuria. No prior history of hematuria. No history of recent catheterization. No kidney stone pain. He notes his colostomy has started to work better. No nausea or abdominal pain. Physical Exam Constitutional: WD/WN, vitals as above Respiratory: normal respiratory effort, lungs clear to auscultation Cardiovascular: Rate/Rhythm: regular rate and + irregularly irregular Gastrointestinal (Abdomen): normal bowel sounds, soft, nontender, no hepatosplenomegaly Results & Data Results & Data Vital Signs (Past 12 Hours) Vital Signs Temp Pulse Pulse Resp BP BP Pulse Ox 08/05/24 07:25 36.5 C 69 119/73 96 08/05/24 03:40 36.6 C 75 17 147/92 H 95 08/05/24 03:33 84 18 124/90 95 08/05/24 03:00 75 20 124/90 93 08/05/24 02:00 87 20 131/86 95 08/05/24 01:00 76 20 133/83 94 08/05/24 00:56 73 08/05/24 00:00 90 20 144/80 H 95 08/04/24 23:00 78 20 120/94 94 08/04/24 23:00 73 18 120/94 94 08/04/24 22:06 73 22 165/99 H 97 08/04/24 20:32 88 18 97 08/04/24 20:32 71 18 151/92 H 97 08/04/24 20:29 72 08/04/24 20:14 36.2 C L 98 H 19 169/93 H O2 Del Method 08/05/24 07:25 Room Air 08/05/24 03:40 Room Air 08/05/24 03:33 Room Air 08/05/24 03:00 Room Air 08/05/24 02:00 Room Air 08/05/24 01:00 Room Air 08/05/24 00:56 08/05/24 00:00 Room Air 08/04/24 23:00 Room Air 08/04/24 23:00 Room Air 08/04/24 22:06 Room Air 08/04/24 20:32 Room Air 08/04/24 20:32 08/04/24 20:29 08/04/24 20:14 PG Care Time/CCT Total # of Minutes Spent Total Time Spent with Patient: Total time spent is greater than 50% in coordination of care (as documented) at patient's floor/unit and/or counseling patient: Coding Level of Care Code None Diagnoses Small bowel obstruction due to adhesions K56.50 Hematuria R31.9 Diabetes mellitus, type 2 E11.9 H/O: stroke with residual effects I69.30 Atrial fibrillation I48.91 Atrial fibrillation type: unspecified On anticoagulant therapy Z79.01 Expressive aphasia R47.01 Memory deficits R41.3 Balance disorder R26.89 History of small bowel obstruction Z87.19 Hypertension I10 Comment no billing code as admitted to the same day (5) Atrial fibrillation Atrial fibrillation type: unspecified Qualified Code(s): I48.91 - Unspecified atrial fibrillation
[2024-08-05] MEDS: PANTOprazole 40 MG/10 ML SYR IV SCH (08:15)
[2024-08-05 08:29] LABS: Estimated Average Glucose 171 mg/dl; Hemoglobin A1C 7.6 % (4.5-5.6)
[2024-08-05 09:53] LABS: Appearance Urine Cloudy (Clear); Bilirubin Urine Negative (Negative); Blood Urine 1+ (Negative); Color Urine Red; Glucose Urine UA 2+ (Negative); Ketones Urine Negative (Negative); Leukocyte Esterase Urine Negative (Negative); Nitrite Urine Negative (Negative); Protein Urine 2+ (Negative); Urobilinogen Urine Negative (Negative); pH Urine 7.5 (4.5-7.5)
[2024-08-05 10:00] LABS: Epithelial Cell Urine 0-2 /hpf (0-2); RBC Urine >20 /hpf (0-2); WBC Urine >50 /hpf (0-5)
[2024-08-05] MEDS ORDERED: PIPERACILLIN/TAZOBACTAM 4.5 GM/100 ML BAG IV SCH (10:00)
[2024-08-05 10:01] LABS: Bacteria Urine None Seen (None Seen)
--- NOTE | 2024-08-05 12:44 | Electrocardiogram Report ---
Test Reason : Blood Pressure : */* mmHG Vent. Rate : 71 BPM Atrial Rate : * BPM P-R Int : * ms QRS Dur : 148 ms QT Int : 420 ms P-R-T Axes : * 174 -16 degrees QTcB Int : 456 ms Atrial fibrillation Right bundle branch block T wave abnormality, consider inferior ischemia Abnormal ECG When compared with ECG of 16-Aug-2023 00:35, No significant change was found Confirmed by Landen Gaviria ([id number]) on 08/05/2024 12:44:32 PM Referred By: REFERRED SELF Confirmed By: Landne Gaviria
--- NOTE | 2024-08-05 14:30 | Urology Consultation ---
Date of Consultation August 05, 2024 Assessment & Plan (1) Small bowel obstruction due to adhesions: (2) Hematuria: Plan Very modest hematuriaself-limited in the setting of anticoagulation and [address] reviewed and discussed We discussed the differential diagnosis list I would plan for cystoscopy as an outpatient to complete his workup but no further intervention required during this hospitalization Please contact us if there are further issues while he is inpatient History of Present Illness Attending Physician: Richard Campbell MD History of Present Illness 88-year-old gentleman with a history of multiple CVAs currently on Xarelto who experienced several falls prior to admission He additionally has a diverting colostomy and had low output and a cramping type discomfort of his right lower quadrantsymptoms consistent with prior SBO After arrival he experienced hematuria x 2 with clearing of his urine after the initial experience of blood in the beginning portion of his stream He has no dysuria and he feels he is emptying his bladder completely He has had a CT since arrival Personally reviewed the imagingdoes not appear to have any kidney stones, he has numerous small renal cysts which all appear benign, no perinephric hemorrhage, no evidence of bleeding into the collecting system His bladder is relatively distended but otherwise unremarkable Has a relatively small prostate with a few small prostatic calcifications He is entirely hemodynamically stable and comfortable appearing on initial evaluation Denies any new symptoms and reports that his colostomy has been quite productive since arrival in the hospital he reports a history of anemia but currently has a hemoglobin of 13.4 Creatinine 1.17 He does not have a catheter in place and has been voiding spontaneously His UA was relatively unremarkable with some microscopic evidence of blood Allergies Allergy/AdvReac Type Severity Reaction Status Date / Time tetanus toxoid, adsorbed Allergy Intermediate BLISTERS Verified 07/06/24 10:59 AND EYES SWELLING hydromorphone AdvReac Intermediate HALLUCINATI Verified 07/06/24 10:59 ONS lorazepam AdvReac Intermediate HALLUCINATI Verified 07/06/24 10:59 ONS Home Medications Medication Instructions Recorded Confirmed Type mecobalamin (vitamin B12) 1,000 1,000 mcg PO QPM 07/23/20 08/05/24 History mcg chewable tablet cholecalciferol (vitamin D3) 50 50 mcg PO QAM 12/10/20 08/05/24 History mcg (2,000 unit) capsule crnemrog-no-zyymi 300 mcg-K 60 1 tab PO QAM 12/10/20 08/05/24 History mcg-lycop 600 mcg-lutein 300 mcg tablet (Centrum Silver Men) aspirin 81 mg tablet,delayed 81 mg PO DAILY #30 tabs 05/29/22 08/05/24 Rx release (Adult Low Dose Aspirin) empagliflozin 25 mg tablet 25 mg PO DAILY #90 tabs 08/13/23 08/05/24 Rx pantoprazole 40 mg tablet,delayed 40 mg PO BID 08/16/23 08/05/24 History release metoprolol succinate 50 mg 75 mg (1.5 x 50 mg) PO DAILY #120 01/13/24 08/05/24 Rx tablet,extended release 24 hr tabs levothyroxine 50 mcg tablet 50 mcg PO . ABOUT LUNCHTIME #90 03/28/24 08/05/24 Rx tabs simvastatin 40 mg tablet 40 mg PO PM #90 tabs 03/28/24 08/05/24 Rx diltiazem HCl 120 mg 120 mg PO DAILY #90 caps 04/04/24 08/05/24 Rx capsule,extended release 24 hr (Cartia XT) metformin 500 mg tablet,extended 500 mg PO QPM #90 tabs 05/03/24 08/05/24 Rx release 24 hr rivaroxaban 15 mg tablet (Xarelto) 15 mg PO QDD 1 month #90 tabs 05/09/24 08/05/24 Rx glipizide 5 mg tablet, extended 5 mg PO QAM #90 tabs 06/26/24 08/05/24 Rx release 24 hr Patient History Medical History Wernicke's aphasia CVA (cerebral vascular accident) Classic migraine Hiatal hernia Cerebellar hemorrhage CKD (chronic kidney disease) Hypertrophy of both inferior nasal turbinates Chronic rhinitis Rotator cuff tear Per MRI 02/2020. Followed by orthopedics. Declined operative management. 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 History of colon cancer 1978 Surgical History H/O hernia repair Hx of abdominal surgery bowel obstruction History of total right hip replacement Hx of vasectomy History of colostomy History of bowel resection for colon cancer History of colonoscopy History of esophagogastroduodenoscopy (EGD) 06/2021 Hiatal hernia small, gastritis Status post Mohs surgery for basal cell carcinoma History of root canal procedure History of wisdom tooth extraction History of tonsillectomy and adenoidectomy History of phacoemulsification of cataract of both eyes with intraocular lens implantation History of cardioversion x2 Family History Father , age 91 Hypertension Diabetes Mother , age 64 metastatic breast cancer Breast cancer Ovarian cancer Brother Colorectal cancer Other Coronary heart disease No family history of adverse response to anesthesia Denies family history of Prostate cancer Crohn's disease Myocardial infarction Lung cancer Inflammatory bowel disease Social History Smoking Status: Former smoker Tobacco Type: Pipe Age Started Using Tobacco: 22; Age Quit Using Tobacco: 52; Second Hand Exposure: Yes; Do You Dip or Chew Tobacco: No; Tobacco Cessation Education Requested by Patient: No Hx Alcohol Use: No Hx Substance Use: No Preferred Language: Ukrainian Communication Ability: Effective Visual Impairment: Diminished Hearing Ability: Normal Buckle Stapler Required: No Beliefs That Will Affect Care: None marital status: Current Living Situation: Spouse Current Living Situation Comment: lives in home with , son lives in area and helps current occupational 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[employer], [employer] How many Children do You have: 1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 That Helps Us Care for You: No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 Feels Safe at Home: Yes Safety Concerns: Feels Safe At This Time Childhood Exposure to Second-Hand Smoke: Yes (father smoked in home ) Diet: regular Diet Comment: low fiber caffeine: Yes (drinks coffee daily about half a cup ) Dental Care, Regularly: Yes Physical Activity Frequency: 3-4 Times per Week Physical Activity Frequency Comment: 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 Seatbelt Use: always Sunscreen Use: No (says he does cover up well ) Do you think of yourself as: straight/heterosexual Assistive Devices: Cane and Glasses Review of Systems Review of Systems: The patient denies chest pain, palpitations, shortness of breath, dyspnea on exertion, cough, lower extremity swelling, sore throat, fevers, chills, sweats, vomiting, blood in stool, dysuria, urinary frequency or urgency, lightheadedness, dizziness, headache, loss of consciousness, rash, focal or generalized weakness, numbness or tingling in arms or legs, generalized arthralgias or myalgias, back or neck pain, or night sweats. The review of systems is otherwise negative other than for that already noted above, and at least 10 systems have been reviewed. Physical Exam Constitutional: well developed and well nourished Neck: neck nontender Respiratory: normal respiratory effort; no respiratory distress and does not use accessory muscles Cardiovascular: Rate/Rhythm: regular rate Vessels: radial pulses present Extremities: no edema Gastrointestinal (Abdomen): Inspection/Auscultation: abdomen normal to inspection (colostomy productive) Percussion/Palpation: abdomen soft; abdomen nontender and no guarding Musculoskeletal: Head/Neck/Chest: normocephalic and head atraumatic Extremities: extremities normal to inspection Skin: no rashes and no lesions Trauma: no evidence of skin trauma Neurologic: awake; not obtunded Speech / Cognition: normal speech Motor/Sensory: no tremor Psychiatric: Orientation: alert and oriented x 3 Genitourinary: no CVA tenderness Lymphatic: no lymphadenopathy Results & Data Vital Signs (Past 12 Hours) Vital Signs Temp Pulse Pulse Resp BP BP Pulse Ox 08/05/24 07:25 36.5 C 69 119/73 96 08/05/24 03:40 36.6 C 75 17 147/92 H 95 08/05/24 03:33 84 18 124/90 95 08/05/24 03:00 75 20 124/90 93 O2 Del Method 08/05/24 07:25 Room Air 08/05/24 03:40 Room Air 08/05/24 03:33 Room Air 08/05/24 03:00 Room Air PG Care Time/CCT Total # of Minutes Spent Total Time Spent with Patient: Total time spent is greater than 50% in coordination of care (as documented) at patient's floor/unit and/or counseling patient: Coding Level of Care Code 98192 IN/OBS CONSULT LVL 4,60M Diagnoses Small bowel obstruction due to adhesions K56.50 Hematuria R31.9
[2024-08-05] MEDS: METOPROLOL SUCC 25MG EXT REL TAB PO SCH (14:50)
[2024-08-05] MEDS: dilTIAZem HCL 120 MG CAPCR PO SCH (14:53)
[2024-08-05] MEDS ORDERED: SIMVASTATIN 40 MG TAB PO SCH (21:00)
[2024-08-05] MEDS: PANTOprazole 40 MG TAB PO SCH (22:01)
--- NOTE | 2024-08-06 05:08 | Surgery Progress Note ---
Date of Service August 06, 2024 Assessment & Plan (1) History of small bowel obstruction: Plan: Patient has been admitted on the hospitalist service. From a surgical perspective we recommend the following: Appears of this patient's small bowel obstruction has resolved with conservative measures (bowel rest and hydration) The patient has been advanced to clear liquids yesterday which she is tolerating; consideration can be given to advancing patient's diet further Mobilize as able Patient noted he had some hematuria and he has been evaluated by urology for this issue; consideration is being given for cystoscopy as an outpatient Check a.m. labs when available as above. pt feeling well. stoma functioning will advance diet d/c planning Admission and Anticipated Discharge Date Admission Date: August 05, 2024 Subjective Patient is resting comfortably in bed. He denies any nausea or vomiting and denies any abdominal pain. He notes that his ostomy is not functioning almost normally with a considerable more amount of stool output. Physical Exam Gastrointestinal (Abdomen): Abdomen is markedly less distended than what was noted during yesterday's exam and at time of admission. There is no pain noted with palpation. Ostomy noted to have a fair amount of brown stool in the collection bag. Results & Data Vital Signs (Past 12 Hours) Vital Signs Temp Pulse Resp BP Pulse Ox O2 Del Method 08/05/24 20:00 36.5 C 72 18 127/77 98 Room Air PG Care Time/CCT Total # of Minutes Spent Total Time Spent with Patient: Total time spent is greater than 50% in coordination of care (as documented) at patient's floor/unit and/or counseling patient: Coding Level of Care Code 26234 SUB INP/OBS CARE 25MIN Diagnoses History of small bowel obstruction Z87.19
[2024-08-06] MEDS: LEVOTHYROXINE SODIUM 50 MCG TABLET PO SCH (05:41)
[2024-08-06 06:41] LABS: Hemoglobin 13.4 g/dl (14.0-18.0); Mean Corpuscular Hemoglobin 29.5 pg (25.0-34.0); Mean Corpuscular Hgb Conc 32.7 g/dL (32.0-36.0); Mean Corpuscular Volume 90.1 fL (80.0-100.0); Platelet Count 196 K/uL (130-400); RDW Coefficient of Variation 14.2 % (11.5-14.5); RDW Standard Deviation 46.5 fL (36.4-46.3); Red Blood Count 4.55 M/uL (4.70-6.10); White Blood Count 6.71 K/ul (4.8-10.8)
[2024-08-06 06:59] LABS: BUN Creatinine Ratio 10.5 (10-20); Calcium 8.2 mg/dl (8.6-10.3); Creatinine Clr Calc Pharmacy 52.1 ml/min; Potassium 4.3 mmol/L (3.5-5.1)
[2024-08-06 07:56] VITALS: RESP 15; TEMP 97.7; O2SAT 98
[2024-08-06 11:40] VITALS: BP 130/82; PULSE 71
--- NOTE | 2024-08-06 16:01 | Discharge Summary ---
Discharge Summary Date of Service August 06, 2024 Principal Dx & Hospital Course #1 = Principal Diagnosis (1) Small bowel obstruction due to adhesions: Amilcar Morin is an 88 year old male admitted to [facility] from August 04-2023 due to abdominal pain. He was diagnosed with small bowel obstruction that resolved with NPO status and IV fluids with slow re- introduction of low fiber diet. He should continue on low fiber diet on discharge. He also developed hematuria without dysuria. Urine culture currently shows no growth. His Xarelto was held but given stroke while temporarily holding Xarelto previously for a colonoscopy he was advised to go back on this as soon as his hematuria starts clearing up. He was reviewed by urology and will follow up for consideration of cystoscopy as outpatient. (2) Hematuria: (3) Diabetes mellitus, type 2: (4) H/O: stroke with residual effects: (5) Atrial fibrillation: (6) On anticoagulant therapy: (7) Expressive aphasia: (8) Memory deficits: (9) Balance disorder: (10) History of small bowel obstruction: (11) Hypertension: Notes For Next Care Provider Follow up final urine culture result Make sure he goes back on Xarelto at the earliest opportunity Medication Changes From Visit Holding Xarelto - patient should restart himself as blood in urine improves Admission HPI Per Admitting Provider The patient is an 88-year-old male with a past medical history including hypertension, atrial fibrillation, 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 The patient presents to the emergency department with symptoms similar to previous small bowel obstructions. He reports distention over his ostomy and increasing air developed since 10:00 this morning. He denies associated fevers or chills, but does notice generalized fatigue. He has had some nausea but has not vomited Discharge Exam Constitutional WD/WN, vitals as above Respiratory normal respiratory effort, lungs clear to auscultation Cardiovascular Rate/Rhythm: regular rate and + irregularly irregular Gastrointestinal (Abdomen) normal bowel sounds, soft, nontender, no hepatosplenomegaly Discharge Plan Discharge Items Patient Disposition: Home - Self-Care Reason For Visit: SBO Discharge Diagnosis: Small bowel obstruction Hematuria Activity: Resume your previous activity Non-emergency contact: Primary Care Provider Call non-emergency contact if: you have any medication questions and your symptoms worsen Follow-up/Referrals: Tad Stevenson MD [Physician] - (hematuria) Romulo Barker DO [Primary Care Provider] - Diet: Low Fiber Addtl Attending Provider Instructions: You were admitted to [facility] from August 04-2023 due to abdominal pain. You were diagnosed with small bowel obstruction that resolved with reduction in diet. Please continue on low fiber diet on discharge. You also developed hematuria. Urine culture currently shows no growth. Recommend holding your Xarelto but restarting once this starts to improve. Please follow up with urology. If you do not hear from the office in the next week recommend calling for an appointment. Pending Studies at Discharge: No Stand-Alone Forms: My [facility], Smoking Cessation Medications and DC Order Prescriptions: Continued empagliflozin 25 mg tablet 25 mg PO DAILY Qty: 90 3RF metoprolol succinate 50 mg tablet extended release 24 hr 75 mg PO DAILY Qty: 120 3RF simvastatin 40 mg tablet 40 mg PO PM Qty: 90 3RF levothyroxine 50 mcg tablet 50 mcg PO . ABOUT LUNCHTIME Qty: 90 1RF Rx Instructions: about lunchtime diltiazem HCl [Cartia XT] 120 mg capsule,extended release 24hr 120 mg PO DAILY Qty: 90 3RF metformin 500 mg tablet extended release 24 hr 500 mg PO QPM Qty: 90 3RF glipizide 5 mg tablet extended release 24hr 5 mg PO QAM Qty: 90 3RF mecobalamin (vitamin B12) 1,000 mcg tablet,chewable 1,000 mcg PO QPM Centrum Silver Men 300-600-300 mcg tablet 1 tab PO QAM cholecalciferol (vitamin D3) 50 mcg (2,000 unit) capsule 50 mcg PO QAM aspirin [Adult Low Dose Aspirin] 81 mg tablet,delayed release (DR/EC) 81 mg PO DAILY Qty: 30 0RF pantoprazole 40 mg tablet,delayed release (DR/EC) 40 mg PO BID Held Xarelto 15 mg tablet 15 mg PO QDD 30 Days Qty: 90 3RF Hold Instructions: Resume on 08/07/24. Restart once hematuria resolving Discharge Orders: Discharge Order (Routine); Ordered 12/22/24 Ordered By: Richard Garcia/Other Patient Handouts: Small Bowel Obstruction, Falls Prevent Adjust Living Space Admission Data Admit Date/Time: 08/05/24 01:48 Attending Provider: Richard Campbell Admit Provider: Jluis Mcqueen Primary Care Provider: Romulo Barker Other Providers: Jluis Mcqueen; Talat Verdin; Tad Stevenson Other Interventions: Discharge Summary Assessment (RN) Last Done: 08/06/24 15:39 Hospital Stay Data Consultations 08/05/24 01:03 ED Decision to Admit Stat 08/05/24 05:25 Consult General Surgery Routine 08/05/24 09:50 Consult Urology Routine Diagnostic Imagining Performed 08/04/24 20:28 CT abd pelvis IV con only Stat 08/04/24 21:31 CT cervical spine wo con Stat CT chest diagnostic w con Stat CT head/brain wo con Stat Pending Results Patient Have Any Pending Studies at Discharge: No Discharge Instructions Given to Patient (Per Discharging Provider) You were admitted to [facility] from August 04-2023 due to abdominal pain. You were diagnosed with small bowel obstruction that resolved with reduction in diet. Please continue on low fiber diet on discharge. You also developed hematuria. Urine culture currently shows no growth. Recommend holding your Xarelto but restarting once this starts to improve. Please follow up with urology. If you do not hear from the office in the next week recommend calling for an appointment. Total Time Total Time Spent Total Time Spent (In Minutes): 35 Coding Level of Care Code 33147 INP/OBS DISCH >30 MIN Diagnoses Small bowel obstruction due to adhesions K56.50 Hematuria R31.9 Diabetes mellitus, type 2 E11.9 H/O: stroke with residual effects I69.30 Atrial fibrillation I48.91 Atrial fibrillation type: unspecified On anticoagulant therapy Z79.01 Expressive aphasia R47.01 Memory deficits R41.3 Balance disorder R26.89 History of small bowel obstruction Z87.19 Hypertension I10
--- NOTE | 2024-08-07 10:05 | Coding Query ---
To promote full compliance with coding requirements relating to patient care, provider participation is requested in all cases of remote inpatient coder uncertainty. Please assist us with the question(s) below: Coding Question(s): The diagnosis(es) below was documented in the H&P, and then was contradicted on the Surgical Consultation, then subsequently fell off all further documentation. Please indicate if it is still a possible diagnosis or ruled out. Physician's Response(s): ACUTE KIDNEY INJURY ( x ) Diagnosed and POA ( ) Ruled out ( ) Other (please specify) MTDD
== END 2024-08-06 16:41 | disposition home or self-care (01) | DRG 389 ==
LOC: ED 20:02 → 3E 08-05 01:48 → INTOOBSV 08-05 01:48 → SUATTDRO 08-05 01:48 → 3E 08-05 03:34

== ENCOUNTER 2024-08-07 16:29 | Observation (INO) ==
[2024-08-07 17:30] LABS: Basophils # (auto) 0.06 K/uL (0.00-0.20); Basophils % (auto) 0.6 %; Eosinophils # (auto) 0.02 K/uL (0.00-0.50); Eosinophils % (auto) 0.2 %; Hematocrit (blood only) 44.5 % (42.0-52.0); Hemoglobin 14.6 g/dl (14.0-18.0); Immature Granulocytes # (auto) 0.05 K/uL (0.01-0.20); Immature Granulocytes % (auto) 0.5 %; Lymphocytes # (auto) 0.73 K/uL (1.20-3.40); Mean Corpuscular Hemoglobin 29.1 pg (25.0-34.0); Mean Corpuscular Hgb Conc 32.8 g/dL (32.0-36.0); Mean Corpuscular Volume 88.8 fL (80.0-100.0); Monocytes # (auto) 0.58 K/uL (0.11-0.59); Monocytes % (auto) 5.6 %; Neutrophils # (auto) 8.93 K/uL (1.40-6.50); Neutrophils % (auto) 86.1 %; Platelet Count 259 K/uL (130-400); RDW Coefficient of Variation 14.3 % (11.5-14.5); RDW Standard Deviation 45.1 fL (36.4-46.3); Red Blood Count 5.01 M/uL (4.70-6.10); White Blood Count 10.37 K/ul (4.8-10.8)
[2024-08-07 17:37] LABS: Appearance Urine Turbid (Clear); Bilirubin Urine Negative (Negative); Blood Urine 3+ (Negative); Color Urine Red; Glucose Urine UA 3+ (Negative); Ketones Urine Trace (Negative); Leukocyte Esterase Urine Negative (Negative); Nitrite Urine Negative (Negative); Protein Urine 3+ (Negative); Specific Gravity Urine 1.025 (1.000-1.030); Urobilinogen Urine Negative (Negative)
[2024-08-07 17:41] LABS: Alanine Aminotransferase 10 U/L (7-52); Albumin Globulin Ratio 1.8 (0.9-2); Albumin Level 4.6 gm/dl (3.4-5.0); Alkaline Phosphatase 71 U/L (34-104); Anion Gap 12 (3-11); Aspartate Aminotransferase 18 U/L (13-39); BUN Creatinine Ratio 11.8 (10-20); Bilirubin,Total 0.8 mg/dl (0.2-1.0); Blood Urea Nitrogen 15 mg/dl (6-23); Calcium 9.8 mg/dl (8.6-10.3); Carbon Dioxide 21 mmol/L (21-32); Chloride 106 mmol/L (98-107); Globulin 2.5 gm/dl (2.5-4.0); Glucose 206 mg/dl (70-99(Fasting)); Potassium 4.4 mmol/L (3.5-5.1); Sodium 139 mmol/L (136-145); Total Protein 7.1 gm/dl (6.0-8.3)
[2024-08-07 17:45] LABS: Bacteria Urine None Seen (None Seen); Epithelial Cell Urine 0-2 /hpf (0-2); RBC Urine >20 /hpf (0-2); WBC Urine 0-5 /hpf (0-5)
[2024-08-07 17:56] LABS: Partial Thromboplastin Ratio 1.1; Partial Thromboplastin Time 29 Seconds (21-31); Prothrombin Time 10.9 Seconds (9.0-12.0)
--- NOTE | 2024-08-07 18:07 | Emergency Department Note ---
Impression & Plan Acute urinary retention, Hematuria, Bladder spasm ED Provider Note NAME: YOEL RAMACHANDRAN AGE: 88 SEX: M : 1935 ARRIVES VIA: Walk-In INFORMANT: [Patient][son] ED PROVIDER(S): [Behzad De León MD] CHIEF COMPLAINT: Urinary symptoms HISTORY OF PRESENT ILLNESS: The patient is an 88-year-old male who was admitted to our hospital and discharged just yesterday. He left the hospital after having a bowel obstruction which cleared spontaneously. During his hospitalization, he was found to have some blood in his urine. His Xarelto was put on hold. He was seen by urology and has an outpatient appointment pending. Today, the patient was having some difficulty making his urine. He was urinating quite frequently, he did not seem to be emptying his bladder. He then began having increased pain because he could not urinate. When seen in the ED, he had a large amount of urine by bladder scan, a Deleon catheter was placed. Currently, there is 1200 cc of urine in the Deleon bag, it is bloody in appearance. The patient feels markedly improved since the catheter has been placed. The patient has not had cough or cold or congestion. No fever. He did vomit once today. He does take aspirin, he has been holding his Xarelto as noted above. PMHx/PSHx/Social Hx: See Below PHYSICAL EXAM: GENERAL: Patient is in no acute distress. HEENT: No acute trauma, normocephalic atraumatic, mucous membranes moist, no nasal congestion. NECK: No stridor, no adenopathy, no meningismus, trachea is midline. LUNGS: Clear to auscultation bilaterally, no wheeze, no rhonchi, breath sounds equal. HEART: Irregular rhythm, no obvious murmur. Normal rate. ABDOMEN: Soft, nontender, no peritonitis. Colostomy on the left with stool and air in the bag. Deleon catheter has been placed with bloody urine in the bag. EXTREMITIES: No cyanosis, full range of motion of all the joints without pain or difficulty. NEUROLOGIC: Oriented x 3, no acute motor or sensory deficits, no focal weakness. SKIN: No jaundice, no diaphoresis. DIFFERENTIAL DIAGNOSIS: Hematuria, malignancy, coagulopathy, anemia, UTI, among others. EMERGENCY DEPARTMENT PROCEDURES: Bladder scan showed around 840 cc, significant retention. MEDICAL DECISION MAKING: There is no leukocytosis or worrisome anemia. There is a normal platelet count. No coagulopathy. No renal failure or significant electrolyte abnormality. No concerning liver enzyme elevation. Urinalysis shows hematuria, no obvious infection. Abdominal and pelvis CT did not show any acute urinary obstruction. The bladder was thickened and the Deleon catheter was in proper place. The patient had presented with difficulty with his urination. He was found to be retaining urine by bladder scan. A Deleon catheter was placed. His urine was markedly bloody. During the patient stay, he began having some bladder spasm. He was given IV morphine, oral Pyridium and IV Zofran, he was given some IV Tylenol. He received IV ceftriaxone as antibiotic coverage. He was given a 500 cc saline bolus for hydration purposes. Patient is not comfortable with discharge, his family is not comfortable. He is concerned about the hematuria as well as his pain. He just left the hospital yesterday and is back already today. I did speak with the case management team. The on-call hospitalist was consulted. At this point, the cause for the hematuria is unclear. Prior/Outside records/notes reviewed: Discharge summary note from 08/06/2024 describing his presentation, hospital course and plan at discharge. Imaging/x-ray results per my interpretation: Chronic Medical/Social conditions affecting care: Advanced age. Care/Management discussed with: Case management, the on-call hospitalist. Level of care consideration(s): After review of the information above and other included data: --I believe the patient requires escalation of care to admission DISPOSITION: Admission Past Med/Surg History Problem List Bladder spasm (Acute) Hematuria (Acute) Acute urinary retention (Acute) Hematuria Abrasion of right ear (Acute) Fall from standing (Acute) Small bowel obstruction due to adhesions (Acute) CHLOE (iron deficiency anemia) Hypertension Atrial fibrillation (Acute) Mitral regurgitation On anticoagulant therapy (Acute) xarelto daily H/O: stroke with residual effects Expressive aphasia Memory deficits Balance disorder History of small bowel obstruction Hypothyroidism Diabetes mellitus, type 2 Hyperlipidemia Gout GERD (gastroesophageal reflux disease) Medical History Wernicke's aphasia CVA (cerebral vascular accident) Classic migraine Hiatal hernia Cerebellar hemorrhage CKD (chronic kidney disease) Hypertrophy of both inferior nasal turbinates Chronic rhinitis Rotator cuff tear Per MRI 02/2020. Followed by orthopedics. Declined operative management. 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 History of colon cancer 1978 Surgical History H/O hernia repair Hx of abdominal surgery bowel obstruction History of total right hip replacement Hx of vasectomy History of colostomy History of bowel resection for colon cancer History of colonoscopy History of esophagogastroduodenoscopy (EGD) 06/2021 Hiatal hernia small, gastritis Status post Mohs surgery for basal cell carcinoma History of root canal procedure History of wisdom tooth extraction History of tonsillectomy and adenoidectomy History of phacoemulsification of cataract of both eyes with intraocular lens implantation History of cardioversion x2 Family History Father , age 91 Hypertension Diabetes Mother , age 64 metastatic breast cancer Breast cancer Ovarian cancer Brother Colorectal cancer Other Coronary heart disease No family history of adverse response to anesthesia Denies family history of Prostate cancer Crohn's disease Myocardial infarction Lung cancer Inflammatory bowel disease Social History Smoking Status: Former smoker Tobacco Type: Pipe Age Started Using Tobacco: 22; Age Quit Using Tobacco: 52; Second Hand Exposure: No; Do You Dip or Chew Tobacco: No; Hx Alcohol Use: No Hx Substance Use: No Preferred Language: Mongolian Communication Ability: Effective Visual Impairment: No Limitations Hearing Ability: Normal Horticulture Instructor Required: No Beliefs That Will Affect Care: None marital status: Current Living Situation: Spouse Current Living Situation Comment: lives in home with , son lives in area and helps current occupational 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[employer], [employer] How many Children do You have: 1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 Feels Safe at Home: Yes Childhood Exposure to Second-Hand Smoke: Yes (father smoked in home ) Diet: regular Diet Comment: low fiber caffeine: Yes (drinks coffee daily about half a cup ) Dental Care, Regularly: Yes Physical Activity Frequency: 3-4 Times per Week Physical Activity Frequency Comment: 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 Seatbelt Use: always Sunscreen Use: No (says he does cover up well ) Do you think of yourself as: straight/heterosexual Assistive Devices: Cane and Glasses Allergies Allergies Allergy/AdvReac Type Severity Reaction Status Date / Time tetanus toxoid, adsorbed Allergy Intermediate BLISTERS Verified 07/06/24 10:59 AND EYES SWELLING hydromorphone AdvReac Intermediate HALLUCINATI Verified 07/06/24 10:59 ONS lorazepam AdvReac Intermediate HALLUCINATI Verified 07/06/24 10:59 ONS Home Meds Home Medications Medication Instructions Recorded Confirmed mecobalamin (vitamin B12) 1,000 1,000 mcg PO QPM 07/23/20 08/07/24 mcg chewable tablet cholecalciferol (vitamin D3) 50 50 mcg PO QAM 12/10/20 08/07/24 mcg (2,000 unit) capsule [id number] 300 mcg-K 60 1 tab PO QAM 12/10/20 08/07/24 mcg-lycop 600 mcg-lutein 300 mcg tablet (Centrum Silver Men) pantoprazole 40 mg tablet,delayed 40 mg PO BID 08/16/23 08/07/24 release Previous Rx's Medication Instructions Recorded aspirin 81 mg tablet,delayed 81 mg PO DAILY #30 tabs 05/29/22 release (Adult Low Dose Aspirin) empagliflozin 25 mg tablet 25 mg PO DAILY #90 tabs 08/13/23 metoprolol succinate 50 mg 75 mg (1.5 x 50 mg) PO DAILY #120 01/13/24 tablet,extended release 24 hr tabs levothyroxine 50 mcg tablet 50 mcg PO . ABOUT LUNCHTIME #90 03/28/24 tabs simvastatin 40 mg tablet 40 mg PO PM #90 tabs 03/28/24 diltiazem HCl 120 mg 120 mg PO DAILY #90 caps 04/04/24 capsule,extended release 24 hr (Cartia XT) metformin 500 mg tablet,extended 500 mg PO QPM #90 tabs 05/03/24 release 24 hr rivaroxaban 15 mg tablet (Xarelto) 15 mg PO QDD 1 month #90 tabs 05/09/24 glipizide 5 mg tablet, extended 5 mg PO QAM #90 tabs 06/26/24 release 24 hr Results & Data (ED) Vital Signs Vital Signs - 24 hr 08/07/24 16:32 08/07/24 17:00 08/07/24 17:10 Temperature 36.5 C Temperature Source Temporal Artery Scan Pulse Rate 101 H Pulse Rate [Apical] 90 Respiratory Rate 19 20 Respiratory Effort / Characteristics Non-Labored Spontaneous Non-Labored Spontaneous Respiratory Depth Normal Normal Blood Pressure 159/103 H 155/104 H Blood Pressure [Left Arm] 155/104 H Blood Pressure Mean 121 118 Blood Pressure Mean [Left Arm] 121 Blood Pressure Position Sitting Pulse Oximetry 95 95 Oxygen Delivery Method Room Air Room Air Sepsis Recent Fever Within 48 Hours No Sepsis New/Unexplained Change in Mental Status No Sepsis Action Taken by Nursing No Action Required 08/07/24 17:21 08/07/24 17:26 08/07/24 17:30 Temperature Temperature Source Pulse Rate 84 84 108 H Pulse Rate [Apical] Respiratory Rate 28 H 22 Respiratory Effort / Characteristics Respiratory Depth Blood Pressure 134/79 Blood Pressure [Left Arm] Blood Pressure Mean 97 Blood Pressure Mean [Left Arm] Blood Pressure Position Pulse Oximetry 97 97 Oxygen Delivery Method Room Air Room Air Sepsis Recent Fever Within 48 Hours Sepsis New/Unexplained Change in Mental Status Sepsis Action Taken by Nursing 08/07/24 18:00 08/07/24 18:06 08/07/24 18:12 Temperature Temperature Source Pulse Rate 93 H 93 H Pulse Rate [Apical] Respiratory Rate 22 Respiratory Effort / Characteristics Respiratory Depth Blood Pressure 144/97 H Blood Pressure [Left Arm] Blood Pressure Mean 98 Blood Pressure Mean [Left Arm] Blood Pressure Position Pulse Oximetry 98 97 Oxygen Delivery Method Room Air Room Air Sepsis Recent Fever Within 48 Hours Sepsis New/Unexplained Change in Mental Status Sepsis Action Taken by Nursing 08/07/24 18:42 08/07/24 18:43 Temperature Temperature Source Pulse Rate 78 Pulse Rate [Apical] Respiratory Rate Respiratory Effort / Characteristics Respiratory Depth Blood Pressure 144/87 H Blood Pressure [Left Arm] Blood Pressure Mean 106 Blood Pressure Mean [Left Arm] Blood Pressure Position Pulse Oximetry Oxygen Delivery Method Sepsis Recent Fever Within 48 Hours Sepsis New/Unexplained Change in Mental Status Sepsis Action Taken by Usp Medications Current Medication List: was personally reviewed by me Laboratory Data Attestation: I reviewed the patient's lab results. 08/07/24 20:16 08/07/24 16:50 Lab Results 08/07/24 08/07/24 Range/Units 16:50 20:16 WBC 10.37 (4.8-10.8) K/ul RBC 5.01 (4.70-6.10) M/uL Hgb 14.6 13.2 L (14.0-18.0) g/dl Hct 44.5 39.9 L (42.0-52.0) % MCV 88.8 (80.0-100.0) fL MCH 29.1 (25.0-34.0) pg MCHC 32.8 (32.0-36.0) g/dL RDW Std Deviation 45.1 (36.4-46.3) fL RDW Coeff of Parisa 14.3 (11.5-14.5) % Plt Count 259 (130-400) K/uL MPV 9.0 L (9.4-12.4) fL Immature Gran % (Auto) 0.5 % Neut % (Auto) 86.1 % Lymph % (Auto) 7.0 % Kidder % (Auto) 5.6 % Eos % (Auto) 0.2 % Baso % (Auto) 0.6 % Neut # (Auto) 8.93 H (1.40-6.50) K/uL Lymph # (Auto) 0.73 L (1.20-3.40) K/uL Kidder # (Auto) 0.58 (0.11-0.59) K/uL Eos # (Auto) 0.02 (0.00-0.50) K/uL Baso # (Auto) 0.06 (0.00-0.20) K/uL Immature Gran # (Auto) 0.05 (0.01-0.20) K/uL PT 10.9 (9.0-12.0) Seconds INR 1.0 (0.9-1.1) APTT 29 (21-31) Seconds PTT Ratio 1.1 Sodium 139 (136-145) mmol/L Potassium 4.4 (3.5-5.1) mmol/L Chloride 106 (98-107) mmol/L Carbon Dioxide 21 (21-32) mmol/L Anion Gap 12 H (3-11) BUN 15 (6-23) mg/dl Creatinine 1.27 (0.6-1.4) mg/dl Est Cr Clr Drug Dosing Not Reportable eGFR 55.02 BUN/Creatinine Ratio 11.8 (10-20) Glucose 206 H (70-99(Fasting)) mg/dl Calcium 9.8 (8.6-10.3) mg/dl Total Bilirubin 0.8 (0.2-1.0) mg/dl AST 18 (13-39) U/L ALT 10 (7-52) U/L Alkaline Phosphatase 71 (34-104) U/L Total Protein 7.1 (6.0-8.3) gm/dl Albumin 4.6 (3.4-5.0) gm/dl Globulin 2.5 (2.5-4.0) gm/dl Albumin/Globulin Ratio 1.8 (0.9-2) Urine Color Red Urine Appearance Turbid A (Clear) Urine pH 7.0 (4.5-7.5) Ur Specific [place] 1.025 (1.000-1.030) Urine Protein 3+ H (Negative) Urine Glucose (UA) 3+ H (Negative) Urine Ketones Trace H (Negative) Urine Blood 3+ H (Negative) Urine Nitrite Negative (Negative) Urine Bilirubin Negative (Negative) Urine Urobilinogen Negative (Negative) Ur Leukocyte Esterase Negative (Negative) Urine RBC >20 H (0-2) /hpf Urine WBC 0-5 (0-5) /hpf Ur Epithelial Cells 0-2 (0-2) /hpf Urine Bacteria None Seen (None Seen) Blood Type A Positive Antibody Screen NEGATIVE Administered Medications Sodium Chloride (Nss) 1,000 mls @ 80 mls/hr IV .[id number] RACHEL Stop: 08/08/24 08:59 Last Admin: 08/07/24 20:47 Dose: 80 mls/hr Documented By: QUEENIE Pantoprazole Sodium (Pantoprazole 40 Mg Tab) 40 mg PO BID RACHEL Stop: 09/06/24 22:15 Last Admin: 08/07/24 22:41 Dose: 40 mg Documented By: HM Simvastatin (Simvastatin 40 Mg Tab) 40 mg PO PM RACHEL Stop: 09/06/24 22:15 Last Admin: 08/07/24 22:41 Dose: 40 mg Documented By: HM Discontinued Medications Sodium Chloride (Nss) 500 mls @ 999 mls/hr IV .Q31M ONE Stop: 08/07/24 19:41 Last Infusion: 08/07/24 20:00 Dose: Infused Documented By: Admin: 08/07/24 19:26 Dose: 999 mls/hr Documented By: HÉCTOR Ceftriaxone Sodium (Rocephin) 2,000 mg in 50 mls @ 100 mls/hr IV NOW STA Stop: 08/07/24 19:40 Last Infusion: 08/07/24 20:00 Dose: Infused Documented By: Admin: 08/07/24 19:27 Dose: 100 mls/hr Documented By: HÉCTOR Acetaminophen (Ofirmev) 1,000 mg in 100 mls @ 400 mls/hr IV NOW STA Stop: 08/07/24 19:59 Last Infusion: 08/07/24 20:30 Dose: Infused Documented By: Admin: 08/07/24 19:52 Dose: 400 mls/hr Documented By: QUEENIE Ioversol (Optiray 320 100ml) 94 ml IV ONCE ONE Stop: 08/07/24 18:37 Last Admin: 08/07/24 18:36 Dose: 94 ml Documented By: YOVANI Morphine Sulfate (Morphine Sulfate 2 Mg/Ml Carp) 2 mg IV NOW STA Stop: 08/07/24 19:46 Last Admin: 08/07/24 19:53 Dose: 2 mg Documented By: QUEENIE Ondansetron HCl (Ondansetron Inj 2 Mg/Ml 2 Ml Vial) 4 mg IV NOW STA Stop: 08/07/24 19:46 Last Admin: 08/07/24 19:53 Dose: 4 mg Documented By: QUEENIE Phenazopyridine HCl (Phenazopyridine Hcl 200 Mg Tab) 200 mg PO NOW STA Stop: 08/07/24 19:46 Last Admin: 08/07/24 19:52 Dose: 200 mg Documented By: QUEENIE Imaging Data Radiologist's Impression: Abdomen/Pelvis CT 08/07/24 17:39 EXAM: CT Abdomen and Pelvis With Intravenous Contrast INDICATION: Hematuria. Pain. Recent hospital admission for blockage. TECHNIQUE: Axial computed tomography images of the abdomen and pelvis with intravenous contrast. Sagittal and coronal reformatted images were created and reviewed. This CT exam was performed using one or more of the following dose reduction techniques: automated exposure control, adjustment of the mA and/or kV according to patient size, and/or use of iterative reconstruction technique. CONTRAST: 94ml of Optiray 320 was administered intravenously. COMPARISON: 08/04/2024 FINDINGS: Limitations: None. Lung bases: No abnormality noted. Pleural space: Increased small right pleural effusion. Heart: Stable cardiomegaly. Mediastinum: No abnormality noted. ABDOMEN: Liver: No abnormality noted. Gallbladder and bile ducts: No calcified stones or surrounding fluid. Pancreas: Homogeneous enhancement. No mass, inflammation or ductal dilation. Spleen: No significant abnormality noted. Adrenals: No significant abnormality noted. Kidneys and ureters: Simple bilateral renal cysts noted. No follow-up necessary. No stones or hydronephrosis. Stomach and bowel: Left lower quadrant colostomy with parastomal hernia again noted now only containing stool-filled colon. Moderate amounts of stool throughout the colon. Collapsed stomach suboptimally assessed. No gross gastric abnormality. Small bowel distention resolved. There is minimal thickening of a loop in the midline of the mid pelvis. Hyperdense contents within the small bowel loop at the level of the parastomal hernia. PELVIS: Appendix: Well seen and appears normal. Bladder: Urinary bladder is mildly dilated and contains a catheter with balloon inflated in the lumen. Small amounts of hyperdense material in the bladder typical of blood. There may be mild thickening. No evident mass. Reproductive: No abnormalities noted. Subperitoneal space: Stable presacral soft tissue scarring and clips. ABDOMEN and PELVIS: Intraperitoneal space: No free air. No significant fluid collection. Bones/joints: Degenerative changes in the spine. No acute abnormality.. Vasculature: Atherosclerotic calcification of the aorta and branches. No aneurysm. Lymph nodes: Enlarged 2 cm short axis dimension node anterior to the IVC is unchanged. IMPRESSION: 1. Small bowel distention resolved. There is minimal thickening of a loop in the midline of the mid pelvis. Hyperdense contents within the small bowel loop at the level of the parastomal hernia. Conceivably, this could reflect ingested contents or hemorrhage. 2. Mildly distended bladder which appears likely minimally inflamed. Deleon catheter in good position. There is a small blood clot in the bladder lumen. 3. No hydronephrosis. ACT 112: Negative or not required by law. Electronically signed by Dena Zacarias 08-07-2024 6:57 PM Discharge Plan Visit Data Chief Complaint: Urinary Symptoms Stated Complaint: BLOOD IN BLADDER, PAIN IN BLADDER, GROIN ED Provider: Behzad De León Discharge Problem: Acute urinary retention, Hematuria, Bladder spasm Patient Disposition: Admitted As Inpatient Condition: Fair Discharge Instructions Interventions: ED Discharge Assessment Last Done: 08/07/24 22:32 Discharge Problem: Hematuria Qualifiers: Hematuria type: gross Qualified Code(s): R31.0 - Gross hematuria
[2024-08-07] MEDS: OPTIRAY 320 100ml IV ONE (18:36)
--- NOTE | 2024-08-07 18:57 | CT Scan Report ---
EXAM: CT Abdomen and Pelvis With Intravenous Contrast INDICATION: Hematuria. Pain. Recent hospital admission for blockage. TECHNIQUE: Axial computed tomography images of the abdomen and pelvis with intravenous contrast. Sagittal and coronal reformatted images were created and reviewed. This CT exam was performed using one or more of the following dose reduction techniques: automated exposure control, adjustment of the mA and/or kV according to patient size, and/or use of iterative reconstruction technique. CONTRAST: 94ml of Optiray 320 was administered intravenously. COMPARISON: 08/04/2024 FINDINGS: Limitations: None. Lung bases: No abnormality noted. Pleural space: Increased small right pleural effusion. Heart: Stable cardiomegaly. Mediastinum: No abnormality noted. ABDOMEN: Liver: No abnormality noted. Gallbladder and bile ducts: No calcified stones or surrounding fluid. Pancreas: Homogeneous enhancement. No mass, inflammation or ductal dilation. Spleen: No significant abnormality noted. Adrenals: No significant abnormality noted. Kidneys and ureters: Simple bilateral renal cysts noted. No follow-up necessary. No stones or hydronephrosis. Stomach and bowel: Left lower quadrant colostomy with parastomal hernia again noted now only containing stool-filled colon. Moderate amounts of stool throughout the colon. Collapsed stomach suboptimally assessed. No gross gastric abnormality. Small bowel distention resolved. There is minimal thickening of a loop in the midline of the mid pelvis. Hyperdense contents within the small bowel loop at the level of the parastomal hernia. PELVIS: Appendix: Well seen and appears normal. Bladder: Urinary bladder is mildly dilated and contains a catheter with balloon inflated in the lumen. Small amounts of hyperdense material in the bladder typical of blood. There may be mild thickening. No evident mass. Reproductive: No abnormalities noted. Subperitoneal space: Stable presacral soft tissue scarring and clips. ABDOMEN and PELVIS: Intraperitoneal space: No free air. No significant fluid collection. Bones/joints: Degenerative changes in the spine. No acute abnormality.. Vasculature: Atherosclerotic calcification of the aorta and branches. No aneurysm. Lymph nodes: Enlarged 2 cm short axis dimension node anterior to the IVC is unchanged. IMPRESSION: 1. Small bowel distention resolved. There is minimal thickening of a loop in the midline of the mid pelvis. Hyperdense contents within the small bowel loop at the level of the parastomal hernia. Conceivably, this could reflect ingested contents or hemorrhage. 2. Mildly distended bladder which appears likely minimally inflamed. Deleon catheter in good position. There is a small blood clot in the bladder lumen. 3. No hydronephrosis. ACT 112: Negative or not required by law. Electronically signed by Dena Zacarias 08-07-2024 6:57 PM
[2024-08-07] MEDS: SODIUM CHLORIDE 0.9% 500 ML IV ONE (19:26)
[2024-08-07] MEDS: cefTRIAXone SODIUM 2,000 MG/50 ML BAG IV STA (19:27)
[2024-08-07] MEDS: PHENAZOPYRIDINE HCL 200 MG TAB PO STA (19:52)
[2024-08-07] MEDS: ACETAMINOPHEN 1,000 MG/100 ML VIAL IV STA (19:52)
[2024-08-07] MEDS: ONDANSETRON INJ 2 MG/ML 2 ML VIAL IV STA (19:53)
[2024-08-07] MEDS: MoRPHine SULFATE 2 MG/ML CARP IV STA (19:53)
--- NOTE | 2024-08-07 20:45 | History & Physical Report ---
Date of Service August 07, 2024 Assessment & Plan (1) Bladder spasm: (2) Gross hematuria: (3) Acute urinary retention: (4) Small bowel obstruction due to adhesions: (5) Atrial fibrillation: (6) H/O: stroke with residual effects: (7) Expressive aphasia: (8) Diabetes mellitus, type 2: Plan Bladder spasm/gross hematuria/urinary retention- Symptoms improved with placement of Deleon catheter, which drained 1200 cc of bloody urine Continue Deleon catheter Status post normal saline 500 mL bolus from the ED, placed on NSS at 80 mL/h x 1 L Follow urine culture and sensitivity Empiric ceftriaxone 2 g IV daily Zofran 4 mg IV every 6 hours as needed Morphine sulfate 2 mg IV every 3 hours as needed from severe pain Improvement with creatinine 2 mg p.o. now, and placed 3 times daily as needed Consult urology, who is presently irrigating Deleon catheter Patient has been off Xarelto for 3 days and will remain off for now Patient did take his last dose of aspirin 3 days ago as well If persistent bleeding after attempted irrigation by urology, will place on DDAVP Recent small bowel obstruction due to adhesions- CT shows resolution of dilated bowel loops For now maintain n.p.o. except medications, for possible more aggressive urologic procedure if needed Diabetes mellitus- Hold glipizide, metformin and empagliflozin Placed on Accu-Cheks with NovoLog SSI Atrial fibrillation/hypertension- Hold Xarelto as noted above Continue diltiazem and metoprolol succinate with hold parameters History of CVA with residual expressive aphasia- Patient is at his baseline at this time History of Present Illness Chief Complaint: The patient presented to the emergency department after developing more significant gross blood in his urine, severe pelvic cramping and pain, and decreased ability to urinate. Primary Care Provider: Romulo Barker DO The patient is a 88-year-old male with past medical history including iron deficiency anemia, hypertension, atrial fibrillation, history of stroke with residual expressive aphasia, memory dysfunction, balance disorder, diabetes mellitus, GERD, gout. He was recently admitted to [facility] from 08/05- 08/06/2024 with small bowel obstruction which resolved spontaneously. He was noted to have had a small amount of blood in his urine transiently, and had his Xarelto and temporarily held. He was discharged on 08/06, and today, 08/07, developed more significant gross hematuria, severe bladder spasms, and inability to produce urine. He had a Deleon catheter placed in the emergency department, which had immediately drained out almost 1200 cc of bloody urine. He was then referred for evaluation for admission. He and his son reports that he had fallen a few times, and was concerned that trauma may have contributed to the blood in his urine. Allergies Allergy/AdvReac Type Severity Reaction Status Date / Time tetanus toxoid, adsorbed Allergy Intermediate BLISTERS Verified 07/06/24 10:59 AND EYES SWELLING hydromorphone AdvReac Intermediate HALLUCINATI Verified 07/06/24 10:59 ONS lorazepam AdvReac Intermediate HALLUCINATI Verified 07/06/24 10:59 ONS Home Medications Medication Instructions Recorded Confirmed Type mecobalamin (vitamin B12) 1,000 1,000 mcg PO QPM 07/23/20 08/07/24 History mcg chewable tablet cholecalciferol (vitamin D3) 50 50 mcg PO QAM 12/10/20 08/07/24 History mcg (2,000 unit) capsule [id number] 300 mcg-K 60 1 tab PO QAM 12/10/20 08/07/24 History mcg-lycop 600 mcg-lutein 300 mcg tablet (Centrum Silver Men) aspirin 81 mg tablet,delayed 81 mg PO DAILY #30 tabs 05/29/22 08/07/24 Rx release (Adult Low Dose Aspirin) empagliflozin 25 mg tablet 25 mg PO DAILY #90 tabs 08/13/23 08/07/24 Rx pantoprazole 40 mg tablet,delayed 40 mg PO BID 08/16/23 08/07/24 History release metoprolol succinate 50 mg 75 mg (1.5 x 50 mg) PO DAILY #120 01/13/24 08/07/24 Rx tablet,extended release 24 hr tabs levothyroxine 50 mcg tablet 50 mcg PO . ABOUT LUNCHTIME #90 03/28/24 08/07/24 Rx tabs simvastatin 40 mg tablet 40 mg PO PM #90 tabs 03/28/24 08/07/24 Rx diltiazem HCl 120 mg 120 mg PO DAILY #90 caps 04/04/24 08/07/24 Rx capsule,extended release 24 hr (Cartia XT) metformin 500 mg tablet,extended 500 mg PO QPM #90 tabs 05/03/24 08/07/24 Rx release 24 hr rivaroxaban 15 mg tablet (Xarelto) 15 mg PO QDD 1 month #90 tabs 05/09/24 08/07/24 Rx glipizide 5 mg tablet, extended 5 mg PO QAM #90 tabs 06/26/24 08/07/24 Rx release 24 hr Past Med/Surg History Problem List (Updated 08/08/24 @ 02:26 by Jluis Mcqueen MD) Gross hematuria Bladder spasm (Acute) Hematuria (Acute) Acute urinary retention (Acute) Hematuria Abrasion of right ear (Acute) Fall from standing (Acute) Small bowel obstruction due to adhesions (Acute) CHLOE (iron deficiency anemia) Hypertension Atrial fibrillation (Acute) Mitral regurgitation On anticoagulant therapy (Acute) xarelto daily H/O: stroke with residual effects Expressive aphasia Memory deficits Balance disorder History of small bowel obstruction Hypothyroidism Diabetes mellitus, type 2 Hyperlipidemia Gout GERD (gastroesophageal reflux disease) Medical History Wernicke's aphasia CVA (cerebral vascular accident) Classic migraine Hiatal hernia Cerebellar hemorrhage CKD (chronic kidney disease) Hypertrophy of both inferior nasal turbinates Chronic rhinitis Rotator cuff tear Per MRI 02/2020. Followed by orthopedics. Declined operative management. 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 History of colon cancer 1978 Surgical History H/O hernia repair Hx of abdominal surgery bowel obstruction History of total right hip replacement Hx of vasectomy History of colostomy History of bowel resection for colon cancer History of colonoscopy History of esophagogastroduodenoscopy (EGD) 06/2021 Hiatal hernia small, gastritis Status post Mohs surgery for basal cell carcinoma History of root canal procedure History of wisdom tooth extraction History of tonsillectomy and adenoidectomy History of phacoemulsification of cataract of both eyes with intraocular lens implantation History of cardioversion x2 Family History Father , age 91 Hypertension Diabetes Mother , age 64 metastatic breast cancer Breast cancer Ovarian cancer Brother Colorectal cancer Other Coronary heart disease No family history of adverse response to anesthesia Denies family history of Prostate cancer Crohn's disease Myocardial infarction Lung cancer Inflammatory bowel disease Social History Smoking Status: Former smoker Tobacco Type: Pipe Age Started Using Tobacco: 22; Age Quit Using Tobacco: 52; Second Hand Exposure: No; Do You Dip or Chew Tobacco: No; Hx Alcohol Use: No Hx Substance Use: No Preferred Language: Irish Communication Ability: Effective Visual Impairment: No Limitations Hearing Ability: Normal Wash Plant 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 Required: No Beliefs That Will Affect Care: None marital status: Current Living Situation: Spouse Current Living Situation Comment: lives in home with , son lives in area and helps current occupational 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, [employer] How many Children do You have: 1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 Feels Safe at Home: Yes Childhood Exposure to Second-Hand Smoke: Yes (father smoked in home ) Diet: regular Diet Comment: low fiber caffeine: Yes (drinks coffee daily about half a cup ) Dental Care, Regularly: Yes Physical Activity Frequency: 3-4 Times per Week Physical Activity Frequency Comment: 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 Seatbelt Use: always Sunscreen Use: No (says he does cover up well ) Do you think of yourself as: straight/heterosexual Assistive Devices: Cane and Glasses Review of Systems Review of Systems: The patient denies chest pain, palpitations, shortness of breath, dyspnea on exertion, cough, lower extremity swelling, sore throat, fevers, chills, sweats, nausea, vomiting, diarrhea , constipation, blood in stool, lightheadedness, dizziness, headache, memory loss, loss of consciousness, rash, focal or generalized weakness, numbness or tingling in arms or legs, generalized arthralgias or myalgias, back or neck pain, or night sweats. The review of systems is otherwise negative other than for that already noted above, and at least 10 systems have been reviewed. Physical Exam Physical Exam: The patient is awake, alert and oriented 3, well developed and well nourished, normocephalic and atraumatic, lying in bed and in episodic moderate distress secondary to bladder spasms HEENT--PERRL, EOMI, mucous membranes and oropharynx dry. Neck--supple. No JVD. No bruits. Thyroid normal, trachea midline, no adenopathy. Heart--normal S1 and S2. No murmurs, rubs or gallops. Lungs--clear bilaterally, no respiratory distress, no accessory muscle use. Abdomen--normal bowel sounds and soft. Nondistended. Initial suprapubic tenderness, relieved after placement of Deleon catheter Extremities--no cyanosis or clubbing. No edema. Dermatologic--normal skin turgor, normal color, no abnormal lymph nodes, no rash. Neurologic--cranial nerves II through XII grossly intact. Rheumatologic--normal range of motion. Psychiatric--normal affect. Results & Data Results & Data Vital Signs (Past 12 Hours) Vital Signs Temp Pulse Pulse Resp BP BP Pulse Ox 08/07/24 18:43 144/87 H 08/07/24 18:42 78 08/07/24 18:12 93 H 22 97 08/07/24 18:06 93 H 98 08/07/24 18:00 144/97 H 08/07/24 17:30 108 H 22 134/79 97 08/07/24 17:26 84 08/07/24 17:21 84 28 H 97 08/07/24 17:10 90 20 155/104 H 95 08/07/24 17:00 155/104 H 08/07/24 16:32 36.5 C 101 H 19 159/103 H 95 O2 Del Method 08/07/24 18:43 08/07/24 18:42 08/07/24 18:12 Room Air 08/07/24 18:06 Room Air 08/07/24 18:00 08/07/24 17:30 Room Air 08/07/24 17:26 08/07/24 17:21 Room Air 08/07/24 17:10 Room Air 08/07/24 17:00 08/07/24 16:32 Room Air Laboratory Results Laboratory Results WBC 10.37 K/ul (4.8-10.8) 08/07/24 16:50 RBC 5.01 M/uL (4.70-6.10) 08/07/24 16:50 Hgb 13.2 g/dl (14.0-18.0) L 08/07/24 20:16 Hct 39.9 % (42.0-52.0) L 08/07/24 20:16 MCV 88.8 fL (80.0-100.0) 08/07/24 16:50 MCH 29.1 pg (25.0-34.0) 08/07/24 16:50 MCHC 32.8 g/dL (32.0-36.0) 08/07/24 16:50 RDW Std Deviation 45.1 fL (36.4-46.3) 08/07/24 16:50 RDW Coeff of [place] 14.3 % (11.5-14.5) 08/07/24 16:50 Plt Count 259 K/uL (130-400) 08/07/24 16:50 MPV 9.0 fL (9.4-12.4) L 08/07/24 16:50 Immature Gran % (Auto) 0.5 % 08/07/24 16:50 Neut % (Auto) 86.1 % 08/07/24 16:50 Lymph % (Auto) 7.0 % 08/07/24 16:50 [place] % (Auto) 5.6 % 08/07/24 16:50 Eos % (Auto) 0.2 % 08/07/24 16:50 Baso % (Auto) 0.6 % 08/07/24 16:50 Neut # (Auto) 8.93 K/uL (1.40-6.50) H 08/07/24 16:50 Lymph # (Auto) 0.73 K/uL (1.20-3.40) L 08/07/24 16:50 Band[place] # (Auto) 0.58 K/uL (0.11-0.59) 08/07/24 16:50 Eos # (Auto) 0.02 K/uL (0.00-0.50) 08/07/24 16:50 Baso # (Auto) 0.06 K/uL (0.00-0.20) 08/07/24 16:50 Immature Gran # (Auto) 0.05 K/uL (0.01-0.20) 08/07/24 16:50 PT 10.9 Seconds (9.0-12.0) 08/07/24 16:50 INR 1.0 (0.9-1.1) 08/07/24 16:50 APTT 29 Seconds (21-31) 08/07/24 16:50 PTT Ratio 1.1 08/07/24 16:50 Sodium 139 mmol/L (136-145) 08/07/24 16:50 Potassium 4.4 mmol/L (3.5-5.1) 08/07/24 16:50 Chloride 106 mmol/L (98-107) 08/07/24 16:50 Carbon Dioxide 21 mmol/L (21-32) 08/07/24 16:50 Anion Gap 12 (3-11) H 08/07/24 16:50 BUN 15 mg/dl (6-23) 08/07/24 16:50 Creatinine 1.27 mg/dl (0.6-1.4) 08/07/24 16:50 Est Cr Clr Drug Dosing Not Reportable 08/07/24 16:50 eGFR 55.02 08/07/24 16:50 BUN/Creatinine Ratio 11.8 (10-20) 08/07/24 16:50 Glucose 206 mg/dl (70-99(Fasting)) H 08/07/24 16:50 POC Glucose 159 mg/dl (70-99) H 08/08/24 02:05 Calcium 9.8 mg/dl (8.6-10.3) 08/07/24 16:50 Total Bilirubin 0.8 mg/dl (0.2-1.0) 08/07/24 16:50 AST 18 U/L (13-39) 08/07/24 16:50 ALT 10 U/L (7-52) 08/07/24 16:50 Alkaline Phosphatase 71 U/L (34-104) 08/07/24 16:50 Total Protein 7.1 gm/dl (6.0-8.3) 08/07/24 16:50 Albumin 4.6 gm/dl (3.4-5.0) 08/07/24 16:50 Globulin 2.5 gm/dl (2.5-4.0) 08/07/24 16:50 Albumin/Globulin Ratio 1.8 (0.9-2) 08/07/24 16:50 Urine Color Red 08/07/24 16:50 Urine Appearance Turbid (Clear) A 08/07/24 16:50 Urine pH 7.0 (4.5-7.5) 08/07/24 16:50 Ur Specific [place] 1.025 (1.000-1.030) 08/07/24 16:50 Urine Protein 3+ (Negative) H 08/07/24 16:50 Urine Glucose (UA) 3+ (Negative) H 08/07/24 16:50 Urine Ketones Trace (Negative) H 08/07/24 16:50 Urine Blood 3+ (Negative) H 08/07/24 16:50 Urine Nitrite Negative (Negative) 08/07/24 16:50 Urine Bilirubin Negative (Negative) 08/07/24 16:50 Urine Urobilinogen Negative (Negative) 08/07/24 16:50 Ur Leukocyte Esterase Negative (Negative) 08/07/24 16:50 Urine RBC >20 /hpf (0-2) H 08/07/24 16:50 Urine WBC 0-5 /hpf (0-5) 08/07/24 16:50 Ur Epithelial Cells 0-2 /hpf (0-2) 08/07/24 16:50 Urine Bacteria None Seen (None Seen) 08/07/24 16:50 Blood Type A Positive 08/07/24 20:16 Antibody Screen NEGATIVE 08/07/24 20:16 Impressions Abdomen/Pelvis CT 08/07/24 17:39 EXAM: CT Abdomen and Pelvis With Intravenous Contrast INDICATION: Hematuria. Pain. Recent hospital admission for blockage. TECHNIQUE: Axial computed tomography images of the abdomen and pelvis with intravenous contrast. Sagittal and coronal reformatted images were created and reviewed. This CT exam was performed using one or more of the following dose reduction techniques: automated exposure control, adjustment of the mA and/or kV according to patient size, and/or use of iterative reconstruction technique. CONTRAST: 94ml of Optiray 320 was administered intravenously. COMPARISON: 08/04/2024 FINDINGS: Limitations: None. Lung bases: No abnormality noted. Pleural space: Increased small right pleural effusion. Heart: Stable cardiomegaly. Mediastinum: No abnormality noted. ABDOMEN: Liver: No abnormality noted. Gallbladder and bile ducts: No calcified stones or surrounding fluid. Pancreas: Homogeneous enhancement. No mass, inflammation or ductal dilation. Spleen: No significant abnormality noted. Adrenals: No significant abnormality noted. Kidneys and ureters: Simple bilateral renal cysts noted. No follow-up necessary. No stones or hydronephrosis. Stomach and bowel: Left lower quadrant colostomy with parastomal hernia again noted now only containing stool-filled colon. Moderate amounts of stool throughout the colon. Collapsed stomach suboptimally assessed. No gross gastric abnormality. Small bowel distention resolved. There is minimal thickening of a loop in the midline of the mid pelvis. Hyperdense contents within the small bowel loop at the level of the parastomal hernia. PELVIS: Appendix: Well seen and appears normal. Bladder: Urinary bladder is mildly dilated and contains a catheter with balloon inflated in the lumen. Small amounts of hyperdense material in the bladder typical of blood. There may be mild thickening. No evident mass. Reproductive: No abnormalities noted. Subperitoneal space: Stable presacral soft tissue scarring and clips. ABDOMEN and PELVIS: Intraperitoneal space: No free air. No significant fluid collection. Bones/joints: Degenerative changes in the spine. No acute abnormality.. Vasculature: Atherosclerotic calcification of the aorta and branches. No aneurysm. Lymph nodes: Enlarged 2 cm short axis dimension node anterior to the IVC is unchanged. IMPRESSION: 1. Small bowel distention resolved. There is minimal thickening of a loop in the midline of the mid pelvis. Hyperdense contents within the small bowel loop at the level of the parastomal hernia. Conceivably, this could reflect ingested contents or hemorrhage. 2. Mildly distended bladder which appears likely minimally inflamed. Deleon catheter in good position. There is a small blood clot in the bladder lumen. 3. No hydronephrosis. ACT 112: Negative or not required by law. Electronically signed by Dena Zacarias 08-07-2024 6:57 PM Code Status & VTE Plan Code Status DNR/DNI VTE Prophylaxis Plan VTE Prophylaxis will be ordered: Yes PG Care Time/CCT Total # of Minutes Spent Total Time Spent with Patient: Total time spent is greater than 50% in coordination of care (as documented) at patient's floor/unit and/or counseling patient: Coding Level of Care Code 38734 INT INP/OBS CARE 3/75MIN Diagnoses Bladder spasm N32.89 Gross hematuria R31.0 Acute urinary retention R33.8 Small bowel obstruction due to adhesions K56.50 Atrial fibrillation I48.91 Atrial fibrillation type: unspecified H/O: stroke with residual effects I69.30 Expressive aphasia R47.01 Diabetes mellitus, type 2 E11.9 (5) Atrial fibrillation Atrial fibrillation type: unspecified Qualified Code(s): I48.91 - Unspecified atrial fibrillation
[2024-08-07] MEDS: SODIUM CHLORIDE 0.9% 1,000 ML IV SCH (20:47)
[2024-08-07 21:01] LABS: Hematocrit (blood only) 39.9 % (42.0-52.0); Hemoglobin 13.2 g/dl (14.0-18.0)
--- NOTE | 2024-08-07 21:05 | Urology Consultation ---
Date of Consultation August 07, 2024 Assessment & Plan (1) Hematuria: Patient is being admitted on the hospitalist service. From a urologic perspective we recommend the following: Recommend holding antiplatelets and anticoagulants During my visit with the patient he was complaining of some intermittent bladder spasms and is Deleon catheter was only draining a small amount of blood- tinged urine. I therefore have the nurses perform a bladder scan which identified the patient had an excess of 800 cc of urine in his bladder. I therefore flushed and irrigated the patient's Deleon catheter manually at bedside. I did not really retrieve anything in the way of blood clots but after flushing irrigating the catheter multiple times it then began to drain a large amount of blood-tinged urine which actually began to clear up once it started draining. After this maneuver in excess of 1 L of urine was retrieved and patient noted symptomatic relief would recommend making the patient n.p.o. after midnight tonight. He will be reevaluated by our dayshift urology team to determine if cystoscopy should be performed in the hospital or if this can be deferred until outpatient timing If patient's Deleon catheter does stop draining or becomes clogged manual flushing and irrigation by nursing staff can be employed Would recommend following serial labs Additional recommendations will be forthcoming based on his clinical course as unfolds History of Present Illness Reason for Consultation: Hematuria History of Present Illness This is an 88-year-old male who is known to [facility] urology. The patient was recently admitted to the hospital from 08/05/2024 through 08/06/2024. During this admission the patient was treated for small bowel obstruction that resolved spontaneously with conservative management. During this admission the patient was noted to have some hematuria. He does take Xarelto as an outpatient for history of atrial fibrillation and this medication was held. He notes that his most recent dose of this medication was prior to his admission to the hospital previously mentioned. During a for mentioned hospitalization he was seen in consultation by urology and is felt the patient can be discharged home and hematuria workup including office cystoscopy can be performed as an outpatient. Since being discharged home the patient notes that he has had some hematuria. He has been voiding frequently only small amounts and then he reached a point when he was having a great deal of difficulty urinating and had a great deal of suprapubic discomfort so he therefore presented to the emergency department. In the emergency department the patient was bladder scanned for a large amount of urine and Deleon catheter was placed in approximate 1200 cc of bloody urine was obtained and the patient noted symptomatic relief from this. Relevant diagnostic studies were reviewed and patient did have a CT scan of the abdomen pelvis performed today. This showed the patient had a dilated urinary bladder with a small amount of hyperdense material typical in appearance for blood clots. There are no evidence of bladder masses. There is no evidence of nephrolithiasis or hydronephrosis. Labs today include CBC were white blood cell count and platelet count were normal. His hemoglobin was within the normal range as was his hematocrit. Chemistry profile showed sodium and potassium were normal. His BUN and creatinine were also normal. Coagulation studies were normal. Urinalysis did show turbid urine but it was not indicative of infection. At the time of my interview he was resting comfortably in bed he was in no distress but was complaining of some intermittent bladder spasms. Allergies Allergy/AdvReac Type Severity Reaction Status Date / Time tetanus toxoid, adsorbed Allergy Intermediate BLISTERS Verified 07/06/24 10:59 AND EYES SWELLING hydromorphone AdvReac Intermediate HALLUCINATI Verified 07/06/24 10:59 ONS lorazepam AdvReac Intermediate HALLUCINATI Verified 07/06/24 10:59 ONS Home Medications Medication Instructions Recorded Confirmed Type mecobalamin (vitamin B12) 1,000 1,000 mcg PO QPM 07/23/20 08/07/24 History mcg chewable tablet cholecalciferol (vitamin D3) 50 50 mcg PO QAM 12/10/20 08/07/24 History mcg (2,000 unit) capsule avfcahji-qi-zkyke 300 mcg-K 60 1 tab PO QAM 12/10/20 08/07/24 History mcg-lycop 600 mcg-lutein 300 mcg tablet (Centrum Silver Men) aspirin 81 mg tablet,delayed 81 mg PO DAILY #30 tabs 05/29/22 08/07/24 Rx release (Adult Low Dose Aspirin) empagliflozin 25 mg tablet 25 mg PO DAILY #90 tabs 08/13/23 08/07/24 Rx pantoprazole 40 mg tablet,delayed 40 mg PO BID 08/16/23 08/07/24 History release metoprolol succinate 50 mg 75 mg (1.5 x 50 mg) PO DAILY #120 01/13/24 08/07/24 R x tablet,extended release 24 hr tabs levothyroxine 50 mcg tablet 50 mcg PO . ABOUT LUNCHTIME #90 03/28/24 08/07/24 Rx tabs simvastatin 40 mg tablet 40 mg PO PM #90 tabs 03/28/24 08/07/24 Rx diltiazem HCl 120 mg 120 mg PO DAILY #90 caps 04/04/24 08/07/24 Rx capsule,extended release 24 hr (Cartia XT) metformin 500 mg tablet,extended 500 mg PO QPM #90 tabs 05/03/24 08/07/24 Rx release 24 hr rivaroxaban 15 mg tablet (Xarelto) 15 mg PO QDD 1 month #90 tabs 05/09/24 08/07/24 Rx glipizide 5 mg tablet, extended 5 mg PO QAM #90 tabs 06/26/24 08/07/24 Rx release 24 hr Patient History Medical History Wernicke's aphasia CVA (cerebral vascular accident) Classic migraine Hiatal hernia Cerebellar hemorrhage CKD (chronic kidney disease) Hypertrophy of both inferior nasal turbinates Chronic rhinitis Rotator cuff tear Per MRI 02/2020. Followed by orthopedics. Declined operative management. 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 History of colon cancer 1978 Surgical History H/O hernia repair Hx of abdominal surgery bowel obstruction History of total right hip replacement Hx of vasectomy History of colostomy History of bowel resection for colon cancer History of colonoscopy History of esophagogastroduodenoscopy (EGD) 06/2021 Hiatal hernia small, gastritis Status post Mohs surgery for basal cell carcinoma History of root canal procedure History of wisdom tooth extraction History of tonsillectomy and adenoidectomy History of phacoemulsification of cataract of both eyes with intraocular lens i mplantation History of cardioversion x2 Family History Father , age 91 Hypertension Diabetes Mother , age 64 metastatic breast cancer Breast cancer Ovarian cancer Brother Colorectal cancer Other Coronary heart disease No family history of adverse response to anesthesia Denies family history of Prostate cancer Crohn's disease Myocardial infarction Lung cancer Inflammatory bowel disease Social History Smoking Status: Never smoker Tobacco Type: Pipe Age Started Using Tobacco: 22; Age Quit Using Tobacco: 52; Second Hand Exposure: Yes; Do You Dip or Chew Tobacco: No; Hx Alcohol Use: No Hx Substance Use: No Preferred Language: Maltese Communication Ability: Effective Visual Impairment: No Limitations Hearing Ability: Normal Engravings Polisher Required: No Beliefs That Will Affect Care: None marital status: Current Living Situation: Spouse Current Living Situation Comment: lives in home with , son lives in area and helps current occupational 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[employer], [email or web address] How many Children do You have: 1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 Feels Safe at Home: Yes Childhood Exposure to Second-Hand Smoke: Yes (father smoked in home ) Diet: regular Diet Comment: low fiber caffeine: Yes (drinks coffee daily about half a cup ) Dental Care, Regularly: Yes Physical Activity Frequency: 3-4 Times per Week Physical Activity Frequency Comment: 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 Seatbelt Use: always Sunscreen Use: No (says he does cover up well ) Do you think of yourself as: straight/heterosexual Assistive Devices: Cane and Glasses Review of Systems Review of Systems: All systems reviewed & are unremarkable except as noted in HPI & below Physical Exam Constitutional: WD/WN, vitals as above Eyes: no conjunctival abnormality ENMT: Ears: no hearing impairment and no external ear abnormality Mouth: no oropharynx abnormality Neck: trachea midline Respiratory: normal respiratory effort; no respiratory distress and no labored breathing Cardiovascular: Rate/Rhythm: regular rate and regular rhythm Gastrointestinal (Abdomen): Abdomen is soft without distention. There is no rebound tenderness or guarding. Patient did have some suprapubic discomfort with palpation Musculoskeletal: No calf tenderness Skin: no rashes Neurologic: moves all extremities Genitourinary: Patient is noted to have a Deleon catheter in place. Is draining a small amount of blood-tinged urine. Results & Data Vital Signs (Past 12 Hours) Vital Signs Temp Pulse Pulse Resp BP BP Pulse Ox 08/07/24 20:40 82 18 151/99 H 97 08/07/24 18:43 144/87 H 08/07/24 18:42 78 08/07/24 18:12 93 H 22 97 08/07/24 18:06 93 H 98 08/07/24 18:00 144/97 H 08/07/24 17:30 108 H 22 134/79 97 08/07/24 17:26 84 08/07/24 17:21 84 28 H 97 08/07/24 17:10 90 20 155/104 H 95 08/07/24 17:00 155/104 H 08/07/24 16:32 36.5 C 101 H 19 159/103 H 95 O2 Del Method 08/07/24 20:40 Room Air 08/07/24 18:43 08/07/24 18:42 08/07/24 18:12 Room Air 08/07/24 18:06 Room Air 08/07/24 18:00 08/07/24 17:30 Room Air 08/07/24 17:26 08/07/24 17:21 Room Air 08/07/24 17:10 Room Air 08/07/24 17:00 08/07/24 16:32 Room Air PG Care Time/CCT Total # of Minutes Spent Total Time Spent with Patient: Total time spent is greater than 50% in coordination of care (as documented) at patient's floor/unit and/or counseling patient: Coding Level of Care Code 88599 INT INP/OBS CARE 3/75MIN Diagnoses Hematuria R31.9
[2024-08-07] MEDS ORDERED: GLUCOSE 10 TAB/TUBE PO PRN (22:16)
[2024-08-07] MEDS ORDERED: GLUCOSE 40% GEL 15 GM TUBE PO PRN (22:16)
[2024-08-07] MEDS ORDERED: GLUCAGON FOR INJ 1 MG VIAL SQ PRN (22:16)
[2024-08-07] MEDS ORDERED: DEXTROSE 50% 50 ML SYRINGE IV PRN (22:16)
[2024-08-07] MEDS ORDERED: CARBOHYDRATES FOR HYPOGLYCEMIA PO PRN (22:16)
[2024-08-07] MEDS ORDERED: ACETAMINOPHEN 325 MG TAB PO PRN (22:16)
[2024-08-07] MEDS ORDERED: MoRPHine SULFATE 2 MG/ML CARP IV PRN (22:16)
[2024-08-07] MEDS ORDERED: ONDANSETRON INJ 2 MG/ML 2 ML VIAL IV PRN (22:16)
[2024-08-07] MEDS: PANTOprazole 40 MG TAB PO SCH (22:41)
[2024-08-07] MEDS: SIMVASTATIN 40 MG TAB PO SCH (22:41)
[2024-08-08] MEDS: INSULIN ASPART PER UNIT CHARGE SC SCH (02:06)
[2024-08-08] MEDS: LEVOTHYROXINE SODIUM 50 MCG TABLET PO SCH (05:50)
[2024-08-08] MEDS ORDERED: PHENAZOPYRIDINE HCL 200 MG TAB PO PRN (06:00)
[2024-08-08] MEDS: D5W AND 1/2NSS 1,000 ML IV SCH (06:14)
[2024-08-08 06:41] LABS: Basophils # (auto) 0.04 K/uL (0.00-0.20); Basophils % (auto) 0.5 %; Eosinophils # (auto) 0.13 K/uL (0.00-0.50); Eosinophils % (auto) 1.5 %; Hematocrit (blood only) 35.9 % (42.0-52.0); Hemoglobin 11.8 g/dl (14.0-18.0); Immature Granulocytes # (auto) 0.04 K/uL (0.01-0.20); Immature Granulocytes % (auto) 0.5 %; Lymphocytes # (auto) 1.12 K/uL (1.20-3.40); Mean Corpuscular Hemoglobin 29.4 pg (25.0-34.0); Mean Corpuscular Hgb Conc 32.9 g/dL (32.0-36.0); Mean Corpuscular Volume 89.5 fL (80.0-100.0); Monocytes # (auto) 0.95 K/uL (0.11-0.59); Neutrophils # (auto) 6.32 K/uL (1.40-6.50); Neutrophils % (auto) 73.5 %; Platelet Count 199 K/uL (130-400); RDW Coefficient of Variation 14.3 % (11.5-14.5); RDW Standard Deviation 46.5 fL (36.4-46.3); Red Blood Count 4.01 M/uL (4.70-6.10)
[2024-08-08 07:05] LABS: Albumin Level 3.5 gm/dl (3.4-5.0); BUN Creatinine Ratio 11.4 (10-20); Calcium 8.6 mg/dl (8.6-10.3); Creatinine Clr Calc Pharmacy 52.1 ml/min; Magnesium 2.2 mg/dl (1.7-2.4); Phosphorus 3.2 mg/dl (2.5-4.9); Potassium 3.6 mmol/L (3.5-5.1)
[2024-08-08] MEDS: dilTIAZem HCL 120 MG CAPCR PO SCH (08:04)
[2024-08-08] MEDS: METOPROLOL SUCC 25MG EXT REL TAB PO SCH (08:05)
--- NOTE | 2024-08-08 09:20 | Urology Progress Note ---
Date of Service August 08, 2024 Assessment & Plan (1) Gross hematuria: (2) Acute urinary retention: Plan: Follow-up of gross hematuria, acute urinary retention Labs todaycreatinine 1.05, WBC 8.6, hemoglobin 11.8 Catheter required irrigation last night Deleon patent and draining appropriately at present Urine is clear orange color due to Pyridium, no hematuria or clots visualized during exam Okay to gently hand irrigate catheter as needed for catheter obs truction/suprapubic discomfort Recommend maintain catheter for approximately 1 week for bladder rest No acute intervention today, patient can resume diet from perspective Keep outpatient cystoscopy as scheduled to finalize hematuria workup Can arrange outpatient voiding trial next week will sign off, please contact our service with questions or concerns Admission and Anticipated Discharge Date Admission Date: August 07, 2024 Subjective Patient seen and examined at bedside this morning. He is awake and resting in bed. His catheter was irrigated by urology JUNE last night. Patient reports it was irrigated by nursing overnight. No suprapubic discomfort at present. Deleon patent and draining. No additional complaints. Review of Systems Constitutional: as per Subjective / HPI Genitourinary: + as per Subjective / HPI Physical Exam Constitutional: no acute distress Respiratory: normal respiratory effort; no respiratory distress and no labored breathing Gastrointestinal (Abdomen): Inspection/Auscultation: abdomen normal to inspection Musculoskeletal: Head/Neck/Chest: normocephalic Neurologic: moves all extremities and awake Psychiatric: Orientation: alert and oriented x 3 Genitourinary: Deleon patent and draining clear orange urine Results & Data Vital Signs (Past 12 Hours) Vital Signs Temp Pulse Pulse Pulse Resp BP BP 08/08/24 07:41 56 L 08/08/24 07:33 36.6 C 62 18 105/55 L 08/08/24 03:54 36.5 C 69 18 120/63 08/07/24 22:52 36.7 C 63 16 138/71 08/07/24 22:32 80 18 Pulse Ox O2 Del Method 08/08/24 07:41 08/08/24 07:33 95 Room Air 08/08/24 03:54 96 Room Air 08/07/24 22:52 96 Room Air 08/07/24 22:32 98 Room Air PG Care Time/CCT Total # of Minutes Spent Total Time Spent with Patient: Total time spent is greater than 50% in coordination of care (as documented) at patient's floor/unit and/or counseling patient: Coding Level of Care Code 28362 SUB INP/OBS CARE 09/09MIN Diagnoses Gross hematuria R31.0 Acute urinary retention R33.8
--- NOTE | 2024-08-08 15:15 | Hospitalist Progress Note ---
Date of Service August 08, 2024 Assessment & Plan (1) Bladder spasm: Plan: With urinary retention. Deleon catheter is now in place. Appreciate urology consultation and recommendations. Deleon catheter will remain in place at the time of discharge and he will follow-up with urology as an outpatient and probably undergo outpatient cystoscopy (2) Gross hematuria: Plan: Present on admission. Now resolved (3) Acute urinary retention: Plan: Present on admission. Deleon catheter has been placed. Appreciate urology consultation and recommendations (4) Small bowel obstruction due to adhesions: Plan: I counted for recent hospitalization from August 05 through August 06. Nonsurgical treatment performed and obstruction spontaneously resolved (5) Atrial fibrillation: Plan: Chronic. Xarelto was temporarily on hold. Xarelto will be restarted at discharge. Several prolonged RR to RR intervals noted although the patient remains asymptomatic. Metoprolol dosage has been decreased. Heart monitor will be ordered at discharge (6) H/O: stroke with residual effects: Plan: Stable. Continue current medical management (7) Diabetes mellitus, type 2: Plan: ADA diet. Sliding scale coverage as needed. Continue current medical management Plan Hopeful discharge to home tomorrowAugust 09, with Deleon catheter in place and heart monitor Admission and Anticipated Discharge Date Admission Date: August 07, 2024 Subjective Alert and oriented. Urology consultation noted. Deleon catheter will remain in place at discharge and outpatient cystoscopy will be completed. Hematuria has resolved. Xarelto remains on hold for now and will be restarted at discharge. He has chronic atrial fibrillation with several prolonged RR to RR intervals per nursing. He remains asymptomatic. Metoprolol dosage has been decreased. Hopefully he can go home tomorrow, August 09 Review of Systems 2 Review of Systems: Constitutionalno fever or chills ENTno blurred vision, no double vision, no epistaxis, no sore throat Respiratoryno cough, no wheezing, no shortness of breath Cardiacno palpitations, no chest pain, no syncope Alphonso nausea, vomiting, diarrhea, melena, hematochezia GUFoley catheter now in place. Hematuria has resolved Musculoskeletalno joint pain, no muscle tenderness Skinno bruising, no rashes, no pruritus Neurono isolated weakness, no paresthesia, no weakness Psychno depression, no anxiety Physical Exam 2 Physical Exam: General-alert and oriented x3, no fever, no chills HEENT-head atraumatic and normocephalic, pupils equal and reactive to light, extraocular muscles intact Neck-no lymphadenopathy or thyromegaly, trachea midline Chest-clear to auscultation. No rales, wheezing or rhonchi Cardiac-irregular rhythm. Controlled rate. Normal S1 and S2 Abdomen-normal bowel sounds, no hepatosplenomegaly GUFoley catheter is now in place. Soldier-colored urine from the Pyridium. No gross hematuria Extremities-no cyanosis, clubbing, or edema Neuro-cranial nerves II through XII intact, motor and sensory function within normal limits, strength symmetrical, no focal deficits Psych-normal affect, normal mood Results & Data Results & Data Vital Signs (Past 12 Hours) Vital Signs Temp Pulse Pulse Pulse Resp BP BP 08/08/24 14:55 36.7 C 53 L 18 105/65 08/08/24 11:04 36.6 C 76 18 113/65 08/08/24 07:41 56 L 08/08/24 07:33 36.6 C 62 18 105/55 L 08/08/24 03:54 36.5 C 69 18 120/63 Pulse Ox O2 Del Method 08/08/24 14:55 98 Room Air 08/08/24 11:04 95 Room Air 08/08/24 07:41 08/08/24 07:33 95 Room Air 08/08/24 03:54 96 Room Air Laboratory Results 08/08/24 06:18 08/08/24 06:18 PG Care Time/CCT Total # of Minutes Spent Total Time Spent with Patient: Total time spent is greater than 50% in coordination of care (as documented) at patient's floor/unit and/or counseling patient: Coding Level of Care Code 95882 SUB INP/OBS CARE 3/50MIN Diagnoses Bladder spasm N32.89 Gross hematuria R31.0 Acute urinary retention R33.8 Small bowel obstruction due to adhesions K56.50 Atrial fibrillation I48.91 Atrial fibrillation type: unspecified H/O: stroke with residual effects I69.30 Diabetes mellitus, type 2 E11.9 (5) Atrial fibrillation Atrial fibrillation type: unspecified Qualified Code(s): I48.91 - Unspecified atrial fibrillation
[2024-08-08] MEDS: cefTRIAXone SODIUM 2,000 MG/50 ML BAG IV SCH (19:47)
[2024-08-09 06:12] LABS: Basophils # (auto) 0.05 K/uL (0.00-0.20); Basophils % (auto) 0.6 %; Eosinophils # (auto) 0.21 K/uL (0.00-0.50); Eosinophils % (auto) 2.6 %; Hematocrit (blood only) 37.6 % (42.0-52.0); Hemoglobin 12.4 g/dl (14.0-18.0); Immature Granulocytes # (auto) 0.04 K/uL (0.01-0.20); Immature Granulocytes % (auto) 0.5 %; Lymphocytes # (auto) 0.98 K/uL (1.20-3.40); Lymphocytes % (auto) 12.3 %; Mean Corpuscular Hemoglobin 29.5 pg (25.0-34.0); Mean Corpuscular Volume 89.3 fL (80.0-100.0); Mean Platelet Volume 8.8 fL (9.4-12.4); Monocytes # (auto) 0.72 K/uL (0.11-0.59); Neutrophils # (auto) 5.97 K/uL (1.40-6.50); Platelet Count 186 K/uL (130-400); RDW Coefficient of Variation 14.5 % (11.5-14.5); Red Blood Count 4.21 M/uL (4.70-6.10); White Blood Count 7.97 K/ul (4.8-10.8)
[2024-08-09 06:42] LABS: BUN Creatinine Ratio 10.2 (10-20); Calcium 8.7 mg/dl (8.6-10.3); Creatinine Clr Calc Pharmacy 50.7 ml/min; Potassium 4.3 mmol/L (3.5-5.1)
[2024-08-09] MEDS: METOPROLOL SUCC 25MG EXT REL TAB PO SCH (08:12)
[2024-08-09] MEDS ORDERED: Nursing to Pharmacy Communication SCH (09:00)
--- NOTE | 2024-08-09 10:38 | Discharge Summary ---
Discharge Summary Date of Service August 09, 2024 Principal Dx & Hospital Course #1 = Principal Diagnosis (1) Bladder spasm: With urinary retention. Deleon catheter is now in place. Appreciate urology consultation and recommendations. Deleon catheter will remain in place at the time of discharge and he will follow-up with urology as an outpatient and probably undergo outpatient cystoscopy (2) Gross hematuria: Present on admission. Now resolved (3) Acute urinary retention: Present on admission. Deleon catheter has been placed. Appreciate urology consultation and recommendations (4) Small bowel obstruction due to adhesions: recent hospitalization from August 05 through August 06. Nonsurgical treatment performed and obstruction spontaneously resolved (5) Atrial fibrillation: Chronic. Xarelto was held during this hospital stay. It will be restarted tomorrow, August 10. Several prolonged R to R intervals noted although the patient remains asymptomatic. Metoprolol dosage has been decreased. Heart monitor will be ordered at discharge (6) H/O: stroke with residual effects: Stable. Continue current medical management (7) Diabetes mellitus, type 2: ADA diet. Sliding scale coverage as needed. Continue current medical management Plan Home today, August 09, with Deleon catheter in place. Metoprolol dosage has been decreased Admission HPI Per Admitting Provider The patient is a 88-year-old male with past medical history including iron deficiency anemia, hypertension, atrial fibrillation, history of stroke with residual expressive aphasia, memory dysfunction, balance disorder, diabetes mellitus, GERD, gout. He was recently admitted to [facility] from 08/05- 08/06/2024 with small bowel obstruction which resolved spontaneously. He was no blanca to have had a small amount of blood in his urine transiently, and had his Xarelto and temporarily held. He was discharged on 08/06, and today, 08/07, developed more significant gross hematuria, severe bladder spasms, and inability to produce urine. He had a Deleon catheter placed in the emergency department, which had immediately drained out almost 1200 cc of bloody urine. He was then referred for evaluation for admission. He and his son reports that he had fallen a few times, and was concerned that trauma may have contributed to the blood in his urine. Discharge Exam General-alert and oriented x3, no fever, no chills HEENT-head atraumatic and normocephalic, pupils equal and reactive to light, extraocular muscles intact Neck-no lymphadenopathy or thyromegaly, trachea midline Chest-clear to auscultation. No rales, wheezing or rhonchi Cardiac-irregular rhythm. Controlled rate. Normal S1 and S2 Abdomen-normal bowel sounds, no hepatosplenomegaly GUFoley catheter is now in place. Ascension-colored urine from the Pyridium. No gross hematuria Extremities-no cyanosis, clubbing, or edema Neuro-cranial nerves II through XII intact, motor and sensory function within normal limits, strength symmetrical, no focal deficits Psych-normal affect, normal mood Discharge Plan Discharge Items Patient Disposition: Home - Self-Care Reason For Visit: GROSS HEMATURIA Discharge Diagnosis: Urinary retention with hematuria Condition on Discharge: Good Activity: Resume your previous activity Non-emergency contact: Primary Care Provider Call non-emergency contact if: you have any medication questions and your symptoms worsen Follow-up/Referrals: Romulo Barker DO [Primary Care Provider] - Diet: Carb Consistent or DM2 and Heart Healthy Addtl Attending Provider Instructions: Deleon catheter remains in place. Follow-up with urology as soon as possible. Restart Xarelto tomorrow, August 10. Metoprolol dosage has been decreased. A new prescription has been sent to your pharmacy Pending Studies at Discharge: No Stand-Alone Forms: My [facility] Thotz, Smoking Cessation Medications and DC Order Prescriptions: New metoprolol succinate 25 mg Tablet Extended Release 24 Hr 25 mg PO DAILY Qty: 30 0RF Continued empagliflozin 25 mg tablet 25 mg PO DAILY Qty: 90 3RF simvastatin 40 mg tablet 40 mg PO PM Qty: 90 3RF levothyroxine 50 mcg tablet 50 mcg PO . ABOUT LUNCHTIME Qty: 90 1RF Rx Instructions: about lunchtime diltiazem HCl [Cartia XT] 120 mg capsule,extended release 24hr 120 mg PO DAILY Qty: 90 3RF metformin 500 mg tablet extended release 24 hr 500 mg PO QPM Qty: 90 3RF glipizide 5 mg tablet extended release 24hr 5 mg PO QAM Qty: 90 3RF mecobalamin (vitamin B12) 1,000 mcg tablet,chewable 1,000 mcg PO QPM Centrum Silver Men 300-600-300 mcg tablet 1 tab PO QAM cholecalciferol (vitamin D3) 50 mcg (2,000 unit) capsule 50 mcg PO QAM Xarelto 15 mg tablet 15 mg PO QDD 30 Days Qty: 90 3RF Hold Instructions: Resume on 08/07/24. Restart once hematuria resolving aspirin [Adult Low Dose Aspirin] 81 mg tablet,delayed release (DR/EC) 81 mg PO DAILY Qty: 30 0RF pantoprazole 40 mg tablet,delayed release (DR/EC) 40 mg PO BID Discontinued metoprolol succinate 50 mg tablet extended release 24 hr 75 mg PO DAILY Qty: 120 3RF Discharge Orders: Discharge Order (Routine); Ordered 08/09/24 Ordered By: Phoenix Loomis Admission Data Admit Date/Time: 08/07/24 20:34 Attending Provider: Phoenix Loomis Admit Provider: Jluis Mcqueen Primary Care Provider: Romulo Barker Other Providers: Jluis Mcqueen Hospital Stay Data Consultations 08/07/24 19:12 ED Decision to Admit Stat 08/07/24 20:24 Consult Urology Routine Diagnostic Imagining Performed 08/07/24 17:39 CT abd pelvis IV con only Stat Pending Results Patient Have Any Pending Studies at Discharge: No Discharge Instructions Given to Patient (Per Discharging Provider) Deleon catheter remains in place. Follow-up with urology as soon as possible. Restart Xarelto tomorrow, August 10. Metoprolol dosage has been decreased. A new prescription has been sent to your pharmacy Total Time Total Time Spent Total Time Spent (In Minutes): 45 minutes Coding Level of Care Code 31737 INP/OBS DISCH >30 MIN Diagnoses Bladder spasm N32.89 Gross hematuria R31.0 Acute urinary retention R33.8 Small bowel obstruction due to adhesions K56.50 Atrial fibrillation I48.91 Atrial fibrillation type: unspecified H/O: stroke with residual effects I69.30 Diabetes mellitus, type 2 E11.9
[2024-08-09 11:12] VITALS: BP 131/78; RESP 20; TEMP 97.9; O2SAT 97
[2024-08-09 11:21] VITALS: PULSE 69
[2024-08-09] MEDS ORDERED: INSULIN ASPART PER UNIT CHARGE SC SCH (11:30)
== END 2024-08-09 12:00 | disposition home or self-care (01) ==
LOC: ED 16:29 → 2N 16:29 → SUATTDRO 20:34 → 2N 22:32

== ENCOUNTER 2025-04-08 23:58 | Inpatient (IN) ==
--- NOTE | 2025-04-09 00:16 | Emergency Department Note ---
Impression & Plan SBO (small bowel obstruction) Admission ED Provider Note HPI: History obtained from patient. The patient is a 89-year-old gentleman with history of atrial fibrillation, currently on Xarelto, history of colon cancer status postresection several decades ago, currently with an ostomy, presents the emergency department with chief complaint of abdominal pain and concern for bowel obstruction. Patient states he has had issues similar to this in the past. Patient states he is still getting some gas and output in his ostomy bag therefore he thinks he only has a partial obstruction at this point. On arrival here to the ED the patient is tachycardic but otherwise hemodynamically stable. Patient denies any vomiting. ROS: - Per HPI Differential Diagnosis: Small bowel obstruction, perforated viscus, diverticulitis, acute colitis, acute pancreatitis, acute gastritis, amongst other potential pathologies. *Outpatient medications and allergy history reviewed. PE: General: Alert HEENT: Normocephalic, trachea midline Eyes: Extraocular eye movement is intact, no scleral erythema Pulmonary: Clear to auscultation bilaterally, no wheezing Cardio: Regular rate and irregular rhythm GI: Abdomen is soft to palpation, there is tenderness to palpation with mild distention, ostomy in place to the left lower quadrant with a small amount of stool output and gas : No suprapubic tenderness MSK: No evidence of trauma or malformation of the extremities, no edema Skin: No evidence of rash Neuro: Alert, no focal deficits Psychiatric: Cooperative INDEPENDENT INTERPRETATIONS: monitoring tech: (As interpreted by myself): - An order was placed for continuous cardiac monitoring - Patient was noted to be in atrial fibrillation with a rate of 75 EKG: (As interpreted by myself): Rate: 104 Rhythm: Atrial fibrillation Intervals: Within normal limits ST changes: No ST elevation Time: 0016 Interventions provided in ED: - IV morphine, IV Zofran, IV fluid bolus Medical Decision Making: IV was established and lab work obtained. Lab work shows no leukocytosis, hemoglobin is normal, platelet count is normal, CMP does not show any evidence of any critical findings. Lactic acid is normal. CT imaging of the abdomen and pelvis was obtained with IV contrast that shows evidence of small bowel obstruction without an obvious transition point per the interpreting radiologist. On my reassessment the patient states he feels improved from previous but is still having some pain despite IV morphine and IV Zofran here. General surgery was consulted, patient was evaluated at the bedside, plan will be for admission to the hospitalist service. [facility] hospitalist service was consulted and the patient was placed for admission to the service of Dr. Mcqueen. Consultants/Discussions held with other healthcare providers: - Hospitalist, Dr. Mcqueen - General Surgery, Dr. Dmitry Isaac/Jayesh Liu PA-C Disposition discussion held by myself with: - Patient Diagnosis: 1. Small bowel obstruction, acute 2. History of colon cancer, status postresection and ostomy Disposition: Admission Jason Dee DO Emergency Medicine Past Med/Surg History Problem List (Updated 04/09/25 @ 03:00 by Jason Dee DO) SBO (small bowel obstruction) (Acute) Interstitial lung disease Esophageal dysphagia Dyspnea Dysphagia SBO (small bowel obstruction) (Acute) Gross hematuria Bladder spasm (Acute) Hematuria (Acute) Acute urinary retention (Acute) Hematuria Abrasion of right ear (Acute) Fall from standing (Acute) CHLOE (iron deficiency anemia) H/O: stroke with residual effects Balance disorder History of small bowel obstruction Expressive aphasia GERD (gastroesophageal reflux disease) Memory deficits Hypothyroidism Gout Mitral regurgitation Hyperlipidemia Diabetes mellitus, type 2 Medical History Mitral regurgitation Hx of gout H/O balance disorder due to iron deficiency causing weakness Dyspnea hx, feels its associated with his low iron and weakness Hx of hyperlipidemia History of hypothyroidism CHLOE (iron deficiency anemia) "gets infusions from janeth gomez" History of dysphagia Diabetes mellitus, type 2 Atrial fibrillation f/u janeth harden cardio Hypertension On anticoagulant therapy xarelto daily Wernicke's aphasia CVA (cerebral vascular accident) hx, 05/27/22-Wernicke's aphasia Classic migraine hx Hiatal hernia Cerebellar hemorrhage hx CKD (chronic kidney disease) Hypertrophy of both inferior nasal turbinates Chronic rhinitis Rotator cuff tear Per MRI 02/2020. Followed by orthopedics. Declined operative management. Colostomy in place Peripheral neuropathy Transient ischemic attack (TIA) hx, 12/18/22 B12 deficiency History of anesthesia reaction had hallucinations 02/2017 w/procedure with dr. 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 History of colon cancer 1978 Surgical History H/O hernia repair Hx of abdominal surgery bowel obstruction History of total right hip replacement Hx of vasectomy History of colostomy History of bowel resection for colon cancer History of colonoscopy History of esophagogastroduodenoscopy (EGD) 06/2021 Hiatal hernia small, gastritis Status post Mohs surgery for basal cell carcinoma History of root canal procedure History of wisdom tooth extraction History of tonsillectomy and adenoidectomy History of phacoemulsification of cataract of both eyes with intraocular lens implantation History of cardioversion x2, most recent was years ago Family History Father , age 91 Hypertension Diabetes Mother , age 64 metastatic breast cancer Breast cancer Ovarian cancer Brother Colorectal cancer Other Coronary heart disease No family history of adverse response to anesthesia Denies family history of Prostate cancer Crohn's disease Myocardial infarction Lung cancer Inflammatory bowel disease Social History Smoking Status: Never smoker Tobacco Type: Pipe Age Started Using Tobacco: 22; Age Quit Using Tobacco: 52; Second Hand Exposure: Yes (hx); Do You Dip or Chew Tobacco: No; Hx Alcohol Use: Yes (none since 2020) Alcohol type: wine Hx Substance Use: No Preferred Language: Czech Communication Ability: Effective Visual Impairment: No Limitations Hearing Ability: Normal National Insurance Officer Required: No Beliefs That Will Affect Care: None marital status: Current Living Situation: Spouse Current Living Situation Comment: lives with , son lives close by current occupational 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, [employer] How many Children do You have: 1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 Feels Safe at Home: Yes Childhood Exposure to Second-Hand Smoke: Yes (father smoked in home ) Diet: regular Diet Comment: low fiber caffeine: Yes (drinks coffee daily about half a cup ) Dental Care, Regularly: Yes Physical Activity Frequency: 3-4 Times per Week Physical Activity Frequency Comment: 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 Seatbelt Use: always Sunscreen Use: No (says he does cover up well ) Do you think of yourself as: straight/heterosexual Assistive Devices: Cane Allergies Allergies Allergy/AdvReac Type Severity Reaction Status Date / Time tetanus toxoid, adsorbed Allergy Intermediate BLISTERS Verified 04/05/25 13:49 AND EYES SWELLING hydromorphone AdvReac Intermediate HALLUCINATI Verified 04/05/25 13:49 ONS lorazepam AdvReac Intermediate HALLUCINATI Verified 04/05/25 13:49 ONS Home Meds Home Medications Medication Instructions Recorded Confirmed mecobalamin (vitamin B12) 1,000 1,000 mcg PO QPM 07/23/20 04/09/25 mcg chewable tablet cholecalciferol (vitamin D3) 50 50 mcg PO QAM 12/10/20 04/09/25 mcg (2,000 unit) capsule [id number] 300 mcg-K 60 1 tab PO QPM 12/10/20 04/09/25 mcg-lycop 600 mcg-lutein 300 mcg tablet (Centrum Silver Men) ferrous sulfate 325 mg (65 mg 325 mg PO HS 09/29/24 04/09/25 iron) tablet lactobacillus combination no.9 4 4,000 mmu cells PO QPM 03/06/25 04/09/25 billion cell capsule (Adult 50 Plus Probiotic) aspirin 81 mg tablet,delayed 81 mg PO HS 03/08/25 04/09/25 release (Adult Low Dose Aspirin) empagliflozin 25 mg tablet 25 mg PO QPM 03/08/25 04/09/25 metoprolol succinate 50 mg 50 mg PO QAM 03/08/25 04/09/25 tablet,extended release 24 hr rivaroxaban 15 mg tablet (Xarelto) 15 mg PO QDD 03/08/25 04/09/25 simvastatin 40 mg tablet 40 mg PO HS 03/08/25 04/09/25 Saccharomyces boulardii 250 mg 250 mg PO QAM 03/23/25 04/09/25 capsule (Florastor) Previous Rx's Medication Instructions Recorded metformin 500 mg tablet,extended 500 mg PO QPM #90 tabs 05/03/24 release 24 hr glipizide 5 mg tablet, extended 5 mg PO QAM #90 tabs 06/26/24 release 24 hr pantoprazole 40 mg tablet,delayed 40 mg PO BID #180 tabs 08/21/24 release diltiazem HCl 120 mg 120 mg PO HS #90 caps 03/26/25 capsule,extended release 24 hr (Cartia XT) levothyroxine 50 mcg tablet 50 mcg PO QPM #90 tabs 03/28/25 Results & Data (ED) Vital Signs Vital Signs - 24 hr 04/09/25 00:01 04/09/25 00:07 04/09/25 00:18 Temperature 36.8 C Temperature Source Temporal Artery Scan Pulse Rate 124 H Respiratory Rate 20 Respiratory Effort / Characteristics Non-Labored Spontaneous Non-Labored Respiratory Depth Normal Normal Respiratory Pattern Regular Blood Pressure 123/88 Blood Pressure Mean 99 Blood Pressure Position Sitting Pulse Oximetry 97 95 Oxygen Delivery Method Room Air Room Air Sepsis Recent Fever Within 48 Hours No Sepsis New/Unexplained Change in Mental Status No Sepsis Action Taken by Nursing No Action Required 04/09/25 00:19 Temperature Temperature Source Pulse Rate 67 Respiratory Rate Respiratory Effort / Characteristics Respiratory Depth Respiratory Pattern Blood Pressure Blood Pressure Mean Blood Pressure Position Pulse Oximetry Oxygen Delivery Method Sepsis Recent Fever Within 48 Hours Sepsis New/Unexplained Change in Mental Status Sepsis Action Taken by Nursing Laboratory Data 04/09/25 00:18 04/09/25 00:18 Lab Results 04/09/25 Range/Units 00:18 WBC 8.14 (4.8-10.8) K/ul RBC 5.41 (4.70-6.10) M/uL Hgb 15.9 (14.0-18.0) g/dl Hct 49.0 (42.0-52.0) % MCV 90.6 (80.0-100.0) fL MCH 29.4 (25.0-34.0) pg MCHC 32.4 (32.0-36.0) g/dL RDW Std Deviation 53.4 H (36.4-46.3) fL RDW Coeff of [place] 16.6 H (11.5-14.5) % Plt Count 243 (130-400) K/uL MPV 8.7 L (9.4-12.4) fL Immature Gran % (Auto) 1.2 % Neut % (Auto) 74.2 % Lymph % (Auto) 12.3 % [place] % (Auto) 8.7 % Eos % (Auto) 2.6 % Baso % (Auto) 1.0 % Neut # (Auto) 6.04 (1.40-6.50) K/uL Lymph # (Auto) 1.00 L (1.20-3.40) K/uL [place] # (Auto) 0.71 H (0.11-0.59) K/uL Eos # (Auto) 0.21 (0.00-0.50) K/uL Baso # (Auto) 0.08 (0.00-0.20) K/uL Immature Gran # (Auto) 0.10 (0.01-0.20) K/uL Sodium 137 (136-145) mmol/L Potassium 4.4 (3.5-5.1) mmol/L Chloride 102 (98-107) mmol/L Carbon Dioxide 28 (21-32) mmol/L Anion Gap 7 (3-11) BUN 18 (6-23) mg/dl Creatinine 1.14 (0.6-1.4) mg/dl Est Cr Clr Drug Dosing 44.7 ml/min eGFR 62.25 BUN/Creatinine Ratio 15.8 (10-20) Glucose 176 H (70-99(Fasting)) mg/dl Lactate 1.5 (0.4-2.0) mmol/L Calcium 10.2 (8.6-10.3) mg/dl Total Bilirubin 0.7 (0.2-1.0) mg/dl AST 33 (13-39) U/L ALT 29 (7-52) U/L Alkaline Phosphatase 80 (34-104) U/L Total Protein 8.2 (6.0-8.3) gm/dl Albumin 4.1 (3.4-5.0) gm/dl Globulin 4.1 H (2.5-4.0) gm/dl Albumin/Globulin Ratio 1.0 (0.9-2) Lipase 36 (11-82) U/L Administered Medications Sodium Chloride (Nss) 1,000 mls @ 150 mls/hr IV .Q6H40M ONE Stop: 04/09/25 09:06 Last Admin: 04/09/25 02:41 Dose: 150 mls/hr Documented By: HÉCTOR Discontinued Medications Sodium Chloride (Nss) 500 mls @ 999 mls/hr IV .Q31M STA Stop: 04/09/25 00:37 Last Infusion: 04/09/25 01:32 Dose: Infused Documented By: Admin: 04/09/25 00:28 Dose: 999 mls/hr Documented By: HUNTER Ioversol (Optiray 320 100ml) 100 ml IV ONCE ONE Stop: 04/09/25 01:16 Last Admin: 04/09/25 01:15 Dose: 93 ml Documented By: ADI Morphine Sulfate (Morphine Sulfate 4 Mg/Ml 1 Ml Carp\\Vial) 4 mg IV NOW STA Stop: 04/09/25 00:17 Last Admin: 04/09/25 00:27 Dose: 4 mg Documented By: HUNTER Morphine Sulfate (Morphine Sulfate 4 Mg/Ml 1 Ml Carp\\Vial) 4 mg IV NOW STA Stop: 04/09/25 01:31 Last Admin: 04/09/25 01:34 Dose: 4 mg Documented By: HUNTER Ondansetron HCl (Ondansetron Inj 2 Mg/Ml 2 Ml Vial) 4 mg IV NOW STA Stop: 04/09/25 00:17 Last Admin: 04/09/25 00:27 Dose: 4 mg Documented By: HUNTER Imaging Data Radiologist's Impression: Abdomen/Pelvis CT 04/09/25 00:16 EXAM: CT abd pelvis IV con only CLINICAL HISTORY: Abdominal pain, eval for small bowel obstruction TECHNIQUE: Contiguous axial images were obtained from the level of the diaphragm to the pubic symphysis with intravenous contrast. Coronal and sagittal reconstructions were likewise performed and indicated to increase the sensitivity for detecting clinically relevant pathology. If IV contrast material had not been administered, the likelihood of detecting abnormalities relevant to the patient's condition would have been substantially decreased. CT scan was performed according to ALARA (as low as reasonable achievable). COMPARISON: MAR 2303/2025 14:25:54 BUYER INTERN FINDINGS: Cardiomegaly Mild right pleural effusion with basal subsegmental collapse of right lower lobes are seen. Multiple atelectatic bands are noted in the bilateral basal segments. Diffuse interlobular septal thickening are noted involving bilateral lungs - sequelae of previous infection. The liver is normal in size and attenuation. No focal liver lesions are seen. There is no intra or extrahepatic biliary ductal dilatation. Hepatic vasculature is patent. The gallbladder shows intraluminal density - microlithiasis. No cholecystitis. The spleen, pancreas, and adrenal glands are unremarkable. The kidneys are normal in size and attenuation. There is no hydronephrosis or perinephric fat stranding. No renal calculi or renal masses are identified. Few simple cortical cyst are noted in both kidneys -stable. The ureters are normal in caliber and no ureteral calculi are seen. The bladder is normal in contour. Pelvic viscera are unremarkable. Evidence of multiple dilated small bowel loops are noted involving mid and lower quadrant of abdomen with maximum diameter measures about 4.2 cm showing internal air fluid level - suggest possibility of small bowel obstruction. No obvious acute transition point seen. Abdominal and pelvic vasculature is patent. No adenopathy or fluid collections are seen. No aggressive appearing osseous lesions are identified. Lower quadrant colostomy status with parastomal large bowel hernia without obvious incarceration. IMPRESSION: 1. Evidence of multiple dilated small bowel loops are noted involving mid and lower quadrant of abdomen with maximum diameter measures about 4.2 cm showing internal air fluid level - suggest possibility of small bowel obstruction. No obvious acute transition point seen.-new finding. 2. Lower quadrant colostomy status with parastomal large bowel hernia without obvious incarceration.-stable. 3. Cardiomegaly-stable. 4. Mild right pleural effusion with basal subsegmental collapse of right lower lobes are seen.-stable. 5. Multiple atelectatic bands are noted in the bilateral basal segments.-stable. 6. Diffuse interlobular septal thickening are noted involving bilateral lungs - sequelae of previous infection.-stable. 7. 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 Electronically signed by Savage Mendez 04-09-2025 02:21 AM Discharge Plan Visit Data Chief Complaint: Abdominal Pain Stated Complaint: ABD PAIN ED Provider: Jason Dee Discharge Problem: SBO (small bowel obstruction) Patient Disposition: Admitted As Inpatient Condition: Fair Forms Stand Alone Forms: [facility] Prescriptions Prescriptions: No Action metformin 500 mg tablet extended release 24 hr 500 mg PO QPM Qty: 90 3RF Patient Comments: w/dinner glipizide 5 mg tablet extended release 24hr 5 mg PO QAM Qty: 90 3RF pantoprazole 40 mg tablet,delayed release (DR/EC) 40 mg PO BID Qty: 180 3RF diltiazem HCl [Cartia XT] 120 mg capsule,extended release 24hr 120 mg PO HS Qty: 90 3RF levothyroxine 50 mcg tablet 50 mcg PO QPM Qty: 90 3RF Rx Instructions: about lunchtime last TSH 03/23/25 1.833 mecobalamin (vitamin B12) 1,000 mcg tablet,chewable 1,000 mcg PO QPM Centrum Silver Men 300-600-300 mcg tablet 1 tab PO QPM cholecalciferol (vitamin D3) 50 mcg (2,000 unit) capsule 50 mcg PO QAM Adult 50 Plus Probiotic 4 billion cell capsule 4,000 mmu cells PO QPM Rx Instructions: administer with a meal ferrous sulfate 325 mg (65 mg iron) tablet 325 mg PO HS Saccharomyces boulardii [Florastor] 250 mg Capsule 250 mg PO QAM metoprolol succinate 50 mg tablet extended release 24 hr 50 mg PO QAM aspirin [Adult Low Dose Aspirin] 81 mg tablet,delayed release (DR/EC) 81 mg PO HS simvastatin 40 mg tablet 40 mg PO HS Xarelto 15 mg tablet 15 mg PO QDD Rx Instructions: must administer with evening meal empagliflozin 25 mg tablet 25 mg PO QPM Referrals Referrals: Romulo Barker DO [Primary Care Provider] -
[2025-04-09] MEDS: MoRPHine SULFATE 4 MG/ML 1 ML CARP\\VIAL IV STA ×2 (00:27→01:34)
[2025-04-09] MEDS: ONDANSETRON INJ 2 MG/ML 2 ML VIAL IV STA (00:27)
[2025-04-09] MEDS: SODIUM CHLORIDE 0.9% 500 ML IV STA (00:28)
[2025-04-09 00:37] LABS: Hematocrit (blood only) 49.0 % (42.0-52.0); Hemoglobin 15.9 g/dl (14.0-18.0); Immature Granulocytes # (auto) 0.10 K/uL (0.01-0.20); Immature Granulocytes % (auto) 1.2 %; Mean Corpuscular Hemoglobin 29.4 pg (25.0-34.0); Mean Corpuscular Volume 90.6 fL (80.0-100.0); Platelet Count 243 K/uL (130-400); RDW Standard Deviation 53.4 fL (36.4-46.3); Red Blood Count 5.41 M/uL (4.70-6.10); White Blood Count 8.14 K/ul (4.8-10.8)
--- NOTE | 2025-04-09 00:49 | Surgery Consultation ---
Date of Consultation April 09, 2025 Assessment & Plan (1) SBO (small bowel obstruction): I evaluated the patient in room B11 at the request of the emergency department physician. There is concern the patient has a recurrent small bowel obstruction. The treating emergency room physician has ordered a CT scan of the abdomen pelvis for further evaluation we will await the results of this If the patient does have a small bowel obstruction we recommend the following: Implement n.p.o. status Hydrate with IV fluids I did discuss with the patient the utilization of an NG tube if he does have a small bowel obstruction. He notes that he is fairly intolerant to these and has a great deal of difficulty having these placed and has requested that since his small bowel obstructions in the past have resolved with conservative measures without the use of an NG tube that we hold on this modality. I think this is reasonable but did inform the patient if he has worsening of his abdominal exam or if nausea and vomiting ensue we may need to rethink the use of this modality and he expresses understanding Additional recommendations with based on his clinical course as unfolds and results of CT scan as it is completed At the time of my exam the patient is nontoxic-appearinghe did not have signs of peritonitis, he was noted to be normotensive without tachycardia or fever, or leukocytosis. He also does not have an elevated lactic acid level. As most of his small bowel obstructions have resolved in the past conservatively we will implement conservative measures as outlined above Addendum: Results of patient's CT scan have been returned. Patient has multiple dilated loops of small bowel in the mid and lower quadrant of the abdomen with an internal air-fluid levelinterpreting radiologist did not identify an obvious transition point but this raises the concern of possible small bowel obstruction. Patient revisited at bedside. Clinically, the patient appears similar to how he appeared in the emergency department. He does not report any new or worsening abdominal pain and continues to not have any nausea or vomiting. He also notes that since admission he has had only a small amount of gas in his ostomy but no stool output. Will continue with plan as outlined above. The patient has had multiple admissions for small bowel obstructions, it is resolving with conservative measures to hopefully we will be able to again resolve his issue with conservative/nonsurgical management. Supervising Physician Co-Signing Physician Notes I have seen and examined this patient this am. He feels roughly the same but does not a small amount of gas in his colostomy bag. Dr. Rose will continue follow up of the surgical service tomorrow. History of Present Illness Reason for Consultation: Concern for small bowel obstruction History of Present Illness This is an 89-year-old male who is known to [facility] physician group general surgery. The patient has had admissions in the past for small bowel obstructions. This patient has a history of underlying colon cancer which was diagnosed in . Sometime around 1977 the patient had surgical intervention where patient had part of his colon resected and he had a colostomy put in place. Since his surgery patient has multiple small bowel obstructions requiring abdominal surgery in April 2017 where the patient had exploratory surgery with lysis of adhesions. Patient's most recent admission to the hospital for a small bowel obstruction was in January of this year where the patient was successfully treated with conservative measures. He presented to the emergency department this evening secondary to abdominal nika n that began at approximate 10:00 PM the evening of 04/08/2025. Patient has some minor/generalized abdominal pain without radiation or modifying factors. He did report some nausea without vomiting. He reports that his ostomy was working completely normal earlier on 04/08/2025 but later in the evening he noted decreased output and now has minimal output with only a small amount of gas. Since arrival to the emergency department he has had labs which I independently reviewed. CBC revealed white blood cell count, hemoglobin, hematocrit, and platelet count were normal. Chemistry profile has been ordered and is pending. He did have a lactic acid level that was not elevated at 1.5. At the time of my interview he was resting comfortably in bed he was in no distress Allergies Allergy/AdvReac Type Severity Reaction Status Date / Time tetanus toxoid, adsorbed Allergy Intermediate BLISTERS Verified 04/05/25 13:49 AND EYES SWELLING hydromorphone AdvReac Intermediate HALLUCINATI Verified 04/05/25 13:49 ONS lorazepam AdvReac Intermediate HALLUCINATI Verified 04/05/25 13:49 ONS Home Medications Medication Instructions Recorded Confirmed Type mecobalamin (vitamin B12) 1,000 1,000 mcg PO QPM 07/23/20 04/09/25 History mcg chewable tablet cholecalciferol (vitamin D3) 50 50 mcg PO QAM 12/10/20 04/09/25 History mcg (2,000 unit) capsule lbphivuv-[id number] 300 mcg-K 60 1 tab PO QPM 12/10/20 04/09/25 History mcg-lycop 600 mcg-lutein 300 mcg tablet (Centrum Silver Men) metformin 500 mg tablet,extended 500 mg PO QPM #90 tabs 05/03/24 04/09/25 Rx release 24 hr glipizide 5 mg tablet, extended 5 mg PO QAM #90 tabs 06/26/24 04/09/25 Rx release 24 hr pantoprazole 40 mg tablet,delayed 40 mg PO BID #180 tabs 08/21/24 04/09/25 Rx release ferrous sulfate 325 mg (65 mg 325 mg PO HS 09/29/24 04/09/25 History iron) tablet lactobacillus combination no.9 4 4,000 mmu cells PO QPM 03/06/25 04/09/25 History billion cell capsule (Adult 50 Plus Probiotic) aspirin 81 mg tablet,delayed 81 mg PO HS 03/08/25 04/09/25 History release (Adult Low Dose Aspirin) empagliflozin 25 mg tablet 25 mg PO QPM 03/08/25 04/09/25 History metoprolol succinate 50 mg 50 mg PO QAM 03/08/25 04/09/25 History tablet,extended release 24 hr rivaroxaban 15 mg tablet (Xarelto) 15 mg PO QDD 03/08/25 04/09/25 History simvastatin 40 mg tablet 40 mg PO HS 03/08/25 04/09/25 History Saccharomyces boulardii 250 mg 250 mg PO QAM 03/23/25 04/09/25 History capsule (Florastor) diltiazem HCl 120 mg 120 mg PO HS #90 caps 03/26/25 04/09/25 Rx capsule,extended release 24 hr (Cartia XT) levothyroxine 50 mcg tablet 50 mcg PO QPM #90 tabs 03/28/25 04/09/25 Rx Patient History Medical History Mitral regurgitation Hx of gout H/O balance disorder due to iron deficiency causing weakness Dyspnea hx, feels its associated with his low iron and weakness Hx of hyperlipidemia History of hypothyroidism CHLOE (iron deficiency anemia) "gets infusions from janeth gomez" History of dysphagia Diabetes mellitus, type 2 Atrial fibrillation f/u janeth harden cardio Hypertension On anticoagulant therapy xarelto daily Wernicke's aphasia CVA (cerebral vascular accident) hx, 05/27/22-Wernicke's aphasia Classic migraine hx Hiatal hernia Cerebellar hemorrhage hx CKD (chronic kidney disease) Hypertrophy of both inferior nasal turbinates Chronic rhinitis Rotator cuff tear Per MRI 02/2020. Followed by orthopedics. Declined operative management. Colostomy in place Peripheral neuropathy Transient ischemic attack (TIA) hx, 12/18/22 B12 deficiency History of anesthesia reaction had hallucinations 02/2017 w/procedure with dr. 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 History of colon cancer 1978 Surgical History H/O hernia repair Hx of abdominal surgery bowel obstruction History of total right hip replacement Hx of vasectomy History of colostomy History of bowel resection for colon cancer History of colonoscopy History of esophagogastroduodenoscopy (EGD) 06/2021 Hiatal hernia small, gastritis Status post Mohs surgery for basal cell carcinoma History of root canal procedure History of wisdom tooth extraction History of tonsillectomy and adenoidectomy History of phacoemulsification of cataract of both eyes with intraocular lens implantation History of cardioversion x2, most recent was years ago Family History Father , age 91 Hypertension Diabetes Mother , age 64 metastatic breast cancer Breast cancer Ovarian cancer Brother Colorectal cancer Other Coronary heart disease No family history of adverse response to anesthesia Denies family history of Prostate cancer Crohn's disease Myocardial infarction Lung cancer Inflammatory bowel disease Social History Smoking Status: Former smoker Tobacco Type: Pipe Age Started Using Tobacco: 22; Age Quit Using Tobacco: 52; Second Hand Exposure: Yes (hx); Do You Dip or Chew Tobacco: No; Hx Alcohol Use: No Hx Substance Use: No Preferred Language: Czech Communication Ability: Effective Visual Impairment: No Limitations Hearing Ability: Normal Jig Boring Machine Set Up Operator Required: No Beliefs That Will Affect Care: None marital status: Current Living Situation: Spouse Current Living Situation Comment: lives with , son lives close by current occupational 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[employer] How many Children do You have: 1 other: Retired 2001 Feels Safe at Home: Yes Safety Concerns: Feels Safe At This Time Childhood Exposure to Second-Hand Smoke: Yes (father smoked in home ) Diet: regular Diet Comment: low fiber caffeine: Yes (drinks coffee daily about half a cup ) Dental Care, Regularly: Yes Physical Activity Frequency: 3-4 Times per Week Physical Activity Frequency Comment: 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 Seatbelt Use: always Sunscreen Use: No (says he does cover up well ) Do you think of yourself as: straight/heterosexual Assistive Devices: Cane Review of Systems Review of Systems: All systems reviewed & are unremarkable except as noted in HPI & below Physical Exam Constitutional: + thin; no acute distress Eyes: no conjunctival abnormality ENMT: Ears: no hearing impairment and no external ear abnormality Mouth: no oropharynx abnormality Neck: trachea midline Respiratory: normal respiratory effort; no respiratory distress and no labored breathing Cardiovascular: Rate/Rhythm: regular rate and regular rhythm Gastrointestinal (Abdomen): At the time of my exam the patient's abdomen had minimal distention but was overall soft and nonrigid. There is no rebound tenderness, guarding, or signs of peritonitis. Patient did have a slight/minimal amount of tenderness with palpation just to the right of the umbilicus. He had a colostomy on the left side of his abdomen which appeared pink and viable. There is a small amount of soft/liquidy stool which was brown in color in the collection bag and a small amount of gas noted in the collection bag. Musculoskeletal: No calf tenderness Skin: no rashes Neurologic: moves all extremities Results & Data Vital Signs (Past 12 Hours) Vital Signs Temp Pulse Resp BP Pulse Ox O2 Del Method 04/09/25 00:19 67 04/09/25 00:18 95 Room Air 04/09/25 00:01 36.8 C 124 H 20 123/88 97 Room Air PG Care Time/CCT Total # of Minutes Spent Total Time Spent with Patient: Total time spent is greater than 50% in coordination of care (as documented) at patient's floor/unit and/or counseling patient: Coding Level of Care Code 98535 INT INP/OBS CARE 3/75MIN Diagnoses SBO (small bowel obstruction) K56.609
[2025-04-09 00:56] LABS: Alanine Aminotransferase 29.0 U/L (7-52); Albumin Globulin Ratio 1.0 (0.9-2); Alkaline Phosphatase 80.0 U/L (34-104); Anion Gap 7.0 (3-11); Bilirubin,Total 0.7 mg/dl (0.2-1.0); Blood Urea Nitrogen 18.0 mg/dl (6-23); Calcium 10.2 mg/dl (8.6-10.3); Carbon Dioxide 28.0 mmol/L (21-32); Chloride 102.0 mmol/L (98-107); Creatinine Clr Calc Pharmacy 44.7 ml/min; Globulin 4.1 gm/dl (2.5-4.0); Glucose 176.0 mg/dl (70-99(Fasting)); Lipase 36.0 U/L (11-82); Potassium 4.4 mmol/L (3.5-5.1); Sodium 137.0 mmol/L (136-145); Total Protein 8.2 gm/dl (6.0-8.3)
[2025-04-09] MEDS: OPTIRAY 320 100ml IV ONE (01:15)
--- NOTE | 2025-04-09 02:21 | CT Scan Report ---
EXAM: CT abd pelvis IV con only CLINICAL HISTORY: Abdominal pain, eval for small bowel obstruction TECHNIQUE: Contiguous axial images were obtained from the level of the diaphragm to the pubic symphysis with intravenous contrast. Coronal and sagittal reconstructions were likewise performed and indicated to increase the sensitivity for detecting clinically relevant pathology. If IV contrast material had not been administered, the likelihood of detecting abnormalities relevant to the patient's condition would have been substantially decreased. CT scan was performed according to ALARA (as low as reasonable achievable). COMPARISON: MAR 2303/2025 14:25:54 METAL SOLDERER FINDINGS: Cardiomegaly Mild right pleural effusion with basal subsegmental collapse of right lower lobes are seen. Multiple atelectatic bands are noted in the bilateral basal segments. Diffuse interlobular septal thickening are noted involving bilateral lungs - sequelae of previous infection. The liver is normal in size and attenuation. No focal liver lesions are seen. There is no intra or extrahepatic biliary ductal dilatation. Hepatic vasculature is patent. The gallbladder shows intraluminal density - microlithiasis. No cholecystitis. The spleen, pancreas, and adrenal glands are unremarkable. The kidneys are normal in size and attenuation. There is no hydronephrosis or perinephric fat stranding. No renal calculi or renal masses are identified. Few simple cortical cyst are noted in both kidneys -stable. The ureters are normal in caliber and no ureteral calculi are seen. The bladder is normal in contour. Pelvic viscera are unremarkable. Evidence of multiple dilated small bowel loops are noted involving mid and lower quadrant of abdomen with maximum diameter measures about 4.2 cm showing internal air fluid level - suggest possibility of small bowel obstruction. No obvious acute transition point seen. Abdominal and pelvic vasculature is patent. No adenopathy or fluid collections are seen. No aggressive appearing osseous lesions are identified. Lower quadrant colostomy status with parastomal large bowel hernia without obvious incarceration. IMPRESSION: 1. Evidence of multiple dilated small bowel loops are noted involving mid and lower quadrant of abdomen with maximum diameter measures about 4.2 cm showing internal air fluid level - suggest possibility of small bowel obstruction. No obvious acute transition point seen.-new finding. 2. Lower quadrant colostomy status with parastomal large bowel hernia without obvious incarceration.-stable. 3. Cardiomegaly-stable. 4. Mild right pleural effusion with basal subsegmental collapse of right lower lobes are seen.-stable. 5. Multiple atelectatic bands are noted in the bilateral basal segments.-stable. 6. Diffuse interlobular septal thickening are noted involving bilateral lungs - sequelae of previous infection.-stable. 7. 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 Electronically signed by Savage Mendez 04-09-2025 02:21 AM
[2025-04-09] MEDS: SODIUM CHLORIDE 0.9% 1,000 ML IV ONE (02:41)
--- NOTE | 2025-04-09 03:06 | History & Physical Report ---
Date of Service April 09, 2025 Assessment & Plan (1) SBO (small bowel obstruction): (2) Atrial fibrillation: (3) Interstitial lung disease: (4) Diabetes mellitus, type 2: Plan The patient is an 89-year-old male with a past medical history including small bowel obstructions, ILD, esophageal dysphagia, bladder spasm, stroke with residual effects, balance disorder, hypothyroidism, gout, hyperlipidemia, and diabetes mellitus type 2. He reports that his left lower quadrant ostomy has had less air in it over the past 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 CT also notes atelectasis bilaterally. From the ED patient received the following: Normal saline 500 mL bolus, morphine 4 mg IV x 2, and Zofran 4 mg IV. The patient was then referred to the medical admitting hospitalist service for medical admission. Recurrent small bowel obstruction- Symptoms are similar to previous episodes NPO Status post 500 mL normal saline bolus in the ED, morphine 4 mg IV x 2, Zofran 4 mg IV Acetaminophen 1 g IV every 8 hours as needed for mild pain or fever Morphine 2 mg IV every 3 hours as needed for moderate to severe pain Zofran 4 mg IV every 6 hours as needed Protonix 40 mg IV twice daily Zosyn 4.5 g IV every 8 hours LR at 80 mL/h General Surgery consult Left lower quadrant ostomy/large bowel hernia unchanged- As noted on CT scan Diabetes mellitus- Hold glipizide, metformin and empagliflozin Placed on Accu-Cheks with NovoLog SSI Check hemoglobin A1c Atrial fibrillation/hypertension- Hold oral diltiazem 120 mg at bedtime and metoprolol succinate [address] on Lopressor 2.5 mg IV every 4 hours with hold parameters Hold aspirin for Last dose of Xarelto was at 9 AM on 04/08 Start heparin drip low-dose without bolus at 9 AM on 04/09. PT/INR/PTT have been added to the emergency department laboratories Hyperlipidemia- Holding simvastatin while n.p.o. GERD- Changing pantoprazole from 40 mg p.o. to IV twice daily Atelectasis- DuoNebs every 2 hours as needed Incentive spirometry every 4 hours while awake CIWA History of Present Illness Chief Complaint: The patient presents to the emergency department with development of generalized abdominal pain earlier in the day today that persisted, similar to previous small bowel obstructions. Primary Care Provider: Romulo Barker DO The patient is an 89-year-old male with a past medical history including small bowel obstructions, ILD, esophageal dysphagia, bladder spasm, stroke with residual effects, balance disorder, hypothyroidism, gout, hyperlipidemia, and diabetes mellitus type 2. He reports that his left lower quadrant ostomy has had less air in it over the past 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 CT also notes atelectasis bilaterally. From the ED patient received the following: Normal saline 500 mL bolus, morphine 4 mg IV x 2, and Zofran 4 mg IV. The patient was then referred to the medical admitting hospitalist service for medical admission Allergies Allergy/AdvReac Type Severity Reaction Status Date / Time tetanus toxoid, adsorbed Allergy Intermediate BLISTERS Verified 04/05/25 13:49 AND EYES SWELLING hydromorphone AdvReac Intermediate HALLUCINATI Verified 04/05/25 13:49 ONS lorazepam AdvReac Intermediate HALLUCINATI Verified 04/05/25 13:49 ONS Home Medications Medication Instructions Recorded Confirmed Type mecobalamin (vitamin B12) 1,000 1,000 mcg PO QPM 07/23/20 04/09/25 History mcg chewable tablet cholecalciferol (vitamin D3) 50 50 mcg PO QAM 12/10/20 04/09/25 History mcg (2,000 unit) capsule [id number] 300 mcg-K 60 1 tab PO QPM 12/10/20 04/09/25 History mcg-lycop 600 mcg-lutein 300 mcg tablet (Centrum Silver Men) metformin 500 mg tablet,extended 500 mg PO QPM #90 tabs 05/03/24 04/09/25 Rx release 24 hr glipizide 5 mg tablet, extended 5 mg PO QAM #90 tabs 06/26/24 04/09/25 Rx release 24 hr pantoprazole 40 mg tablet,delayed 40 mg PO BID #180 tabs 08/21/24 04/09/25 Rx release ferrous sulfate 325 mg (65 mg 325 mg PO HS 09/29/24 04/09/25 History iron) tablet lactobacillus combination no.9 4 4,000 mmu cells PO QPM 03/06/25 04/09/25 History billion cell capsule (Adult 50 Plus Probiotic) aspirin 81 mg tablet,delayed 81 mg PO HS 03/08/25 04/09/25 History release (Adult Low Dose Aspirin) empagliflozin 25 mg tablet 25 mg PO QPM 03/08/25 04/09/25 History metoprolol succinate 50 mg 50 mg PO QAM 03/08/25 04/09/25 History tablet,extended release 24 hr rivaroxaban 15 mg tablet (Xarelto) 15 mg PO QDD 03/08/25 04/09/25 History simvastatin 40 mg tablet 40 mg PO HS 03/08/25 04/09/25 History Saccharomyces boulardii 250 mg 250 mg PO QAM 03/23/25 04/09/25 History capsule (Florastor) diltiazem HCl 120 mg 120 mg PO HS #90 caps 03/26/25 04/09/25 Rx capsule,extended release 24 hr (Cartia XT) levothyroxine 50 mcg tablet 50 mcg PO QPM #90 tabs 03/28/25 04/09/25 Rx Past Med/Surg History Problem List (Updated 04/09/25 @ 03:00 by Jason Dee DO) SBO (small bowel obstruction) (Acute) Interstitial lung disease Esophageal dysphagia Dyspnea Dysphagia SBO (small bowel obstruction) (Acute) Gross hematuria Bladder spasm (Acute) Hematuria (Acute) Acute urinary retention (Acute) Hematuria Abrasion of right ear (Acute) Fall from standing (Acute) CHLOE (iron deficiency anemia) H/O: stroke with residual effects Balance disorder History of small bowel obstruction Expressive aphasia GERD (gastroesophageal reflux disease) Memory deficits Hypothyroidism Gout Mitral regurgitation Hyperlipidemia Diabetes mellitus, type 2 Medical History Mitral regurgitation Hx of gout H/O balance disorder due to iron deficiency causing weakness Dyspnea hx, feels its associated with his low iron and weakness Hx of hyperlipidemia History of hypothyroidism CHLOE (iron deficiency anemia) "gets infusions from janeth gomez" History of dysphagia Diabetes mellitus, type 2 Atrial fibrillation f/u janeth harden cardio Hypertension On anticoagulant therapy xarelto daily Wernicke's aphasia CVA (cerebral vascular accident) hx, 05/27/22-Wernicke's aphasia Classic migraine hx Hiatal hernia Cerebellar hemorrhage hx CKD (chronic kidney disease) Hypertrophy of both inferior nasal turbinates Chronic rhinitis Rotator cuff tear Per MRI 02/2020. Followed by orthopedics. Declined operative management. Colostomy in place Peripheral neuropathy Transient ischemic attack (TIA) hx, 12/18/22 B12 deficiency History of anesthesia reaction had hallucinations 02/2017 w/procedure with dr. 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 History of colon cancer 1979 Surgical History H/O hernia repair Hx of abdominal surgery bowel obstruction History of total right hip replacement Hx of vasectomy History of colostomy History of bowel resection for colon cancer History of colonoscopy History of esophagogastroduodenoscopy (EGD) 06/2021 Hiatal hernia small, gastritis Status post Mohs surgery for basal cell carcinoma History of root canal procedure History of wisdom tooth extraction History of tonsillectomy and adenoidectomy History of phacoemulsification of cataract of both eyes with intraocular lens implantation History of cardioversion x2, most recent was years ago Family History Father , age 91 Hypertension Diabetes Mother , age 64 metastatic breast cancer Breast cancer Ovarian cancer Brother Colorectal cancer Other Coronary heart disease No family history of adverse response to anesthesia Denies family history of Prostate cancer Crohn's disease Myocardial infarction Lung cancer Inflammatory bowel disease Social History Smoking Status: Never smoker Tobacco Type: Pipe Age Started Using Tobacco: 22; Age Quit Using Tobacco: 52; Second Hand Exposure: Yes (hx); Do You Dip or Chew Tobacco: No; Hx Alcohol Use: Yes (none since 2020) Alcohol type: wine Hx Substance Use: No Preferred Language: Vietnamese Communication Ability: Effective Visual Impairment: No Limitations Hearing Ability: Normal Lead Caster Required: No Beliefs That Will Affect Care: None marital status: Current Living Situation: Spouse Current Living Situation Comment: lives with , son lives close by current occupational 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[employer], [employer] How many Children do You have: 1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 Feels Safe at Home: Yes Childhood Exposure to Second-Hand Smoke: Yes (father smoked in home ) Diet: regular Diet Comment: low fiber caffeine: Yes (drinks coffee daily about half a cup ) Dental Care, Regularly: Yes Physical Activity Frequency: 3-4 Times per Week Physical Activity Frequency Comment: 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 Seatbelt Use: always Sunscreen Use: No (says he does cover up well ) Do you think of yourself as: straight/heterosexual Assistive Devices: Cane Review of Systems Review of Systems: The patient denies chest pain, palpitations, shortness of breath, dyspnea on exertion, cough, lower extremity swelling, sore throat, fevers, chills, sweats, nausea, vomiting, blood in urine or stool, dysuria, urinary frequency or urgency, lightheadedness, dizziness, headache, memory loss, loss of consciousness, rash, abnormal bruising or bleeding, imbalance, focal or generalized weakness, numbness or tingling in arms or legs, generalized arthralgias or myalgias, back or neck pain, or night sweats. The review of systems is otherwise negative other than for that already noted above, and at least 10 systems have been reviewed. Physical Exam Physical Exam: The patient is awake, alert and oriented 3, well developed and well nourished, normocephalic and atraumatic, lying in bed and in no acute distress. HEENT--PERRL, EOMI, mucous membranes and oropharynx mildly dry. Neck--supple. No JVD. No bruits. Thyroid normal, trachea midline, no adenopathy. Heart--normal S1 and S2. No murmurs, rubs or gallops. Lungs--clear bilaterally, no respiratory distress, no accessory muscle use. Abdomen--decreased bowel sounds. Mildly firm. Nondistended. Left lower quadrant ostomy bag with small amount of stool and air Extremities--no cyanosis or clubbing. No edema. Dermatologic--normal skin turgor, normal color, no abnormal lymph nodes, no rash. Neurologic--cranial nerves II through XII grossly intact. Rheumatologic--normal range of motion. Psychiatric--normal affect. Results & Data Results & Data Vital Signs (Past 12 Hours) Vital Signs Temp Pulse Resp BP Pulse Ox O2 Del Method 04/09/25 02:30 87 20 111/75 91 04/09/25 00:19 67 04/09/25 00:18 95 Room Air 04/09/25 00:01 36.8 C 124 H 20 123/88 97 Room Air Laboratory Results Laboratory Results WBC 8.14 K/ul (4.8-10.8) 04/09/25 00:18 RBC 5.41 M/uL (4.70-6.10) 04/09/25 00:18 Hgb 15.9 g/dl (14.0-18.0) 04/09/25 00:18 Hct 49.0 % (42.0-52.0) 04/09/25 00:18 MCV 90.6 fL (80.0-100.0) 04/09/25 00:18 MCH 29.4 pg (25.0-34.0) 04/09/25 00:18 MCHC 32.4 g/dL (32.0-36.0) 04/09/25 00:18 RDW Std Deviation 53.4 fL (36.4-46.3) H 04/09/25 00:18 RDW Coeff of [place] 16.6 % (11.5-14.5) H 04/09/25 00:18 Plt Count 243 K/uL (130-400) 04/09/25 00:18 MPV 8.7 fL (9.4-12.4) L 04/09/25 00:18 Immature Gran % (Auto) 1.2 % 04/09/25 00:18 Neut % (Auto) 74.2 % 04/09/25 00:18 Lymph % (Auto) 12.3 % 04/09/25 00:18 [place] % (Auto) 8.7 % 04/09/25 00:18 Eos % (Auto) 2.6 % 04/09/25 00:18 Baso % (Auto) 1.0 % 04/09/25 00:18 Neut # (Auto) 6.04 K/uL (1.40-6.50) 04/09/25 00:18 Lymph # (Auto) 1.00 K/uL (1.20-3.40) L 04/09/25 00:18 [place] # (Auto) 0.71 K/uL (0.11-0.59) H 04/09/25 00:18 Eos # (Auto) 0.21 K/uL (0.00-0.50) 04/09/25 00:18 Baso # (Auto) 0.08 K/uL (0.00-0.20) 04/09/25 00:18 Immature Gran # (Auto) 0.10 K/uL (0.01-0.20) 04/09/25 00:18 PT 11.0 Seconds (9.0-12.0) 04/09/25 00:18 INR 1.0 (0.9-1.1) 04/09/25 00:18 APTT 33 Seconds (21-31) H 04/09/25 00:18 PTT Ratio 1.2 04/09/25 00:18 Sodium 137 mmol/L (136-145) 04/09/25 00:18 Potassium 4.4 mmol/L (3.5-5.1) 04/09/25 00:18 Chloride 102 mmol/L (98-107) 04/09/25 00:18 Carbon Dioxide 28 mmol/L (21-32) 04/09/25 00:18 Anion Gap 7 (3-11) 04/09/25 00:18 BUN 18 mg/dl (6-23) 04/09/25 00:18 Creatinine 1.14 mg/dl (0.6-1.4) 04/09/25 00:18 Est Cr Clr Drug Dosing 44.7 ml/min 04/09/25 00:18 eGFR 62.25 04/09/25 00:18 BUN/Creatinine Ratio 15.8 (10-20) 04/09/25 00:18 Glucose 176 mg/dl (70-99(Fasting)) H 04/09/25 00:18 Lactate 1.5 mmol/L (0.4-2.0) 04/09/25 00:18 Calcium 10.2 mg/dl (8.6-10.3) 04/09/25 00:18 Total Bilirubin 0.7 mg/dl (0.2-1.0) 04/09/25 00:18 AST 33 U/L (13-39) 04/09/25 00:18 ALT 29 U/L (7-52) 04/09/25 00:18 Alkaline Phosphatase 80 U/L (34-104) 04/09/25 00:18 Total Protein 8.2 gm/dl (6.0-8.3) 04/09/25 00:18 Albumin 4.1 gm/dl (3.4-5.0) 04/09/25 00:18 Globulin 4.1 gm/dl (2.5-4.0) H 04/09/25 00:18 Albumin/Globulin Ratio 1.0 (0.9-2) 04/09/25 00:18 Lipase 36 U/L (11-82) 04/09/25 00:18 Impressions Abdomen/Pelvis CT 04/09/25 00:16 EXAM: CT abd pelvis IV con only CLINICAL HISTORY: Abdominal pain, eval for small bowel obstruction TECHNIQUE: Contiguous axial images were obtained from the level of the diaphragm to the pubic symphysis with intravenous contrast. Coronal and sagittal reconstructions were likewise performed and indicated to increase the sensitivity for detecting clinically relevant pathology. If IV contrast material had not been administered, the likelihood of detecting abnormalities relevant to the patient's condition would have been substantially decreased. CT scan was performed according to ALARA (as low as reasonable achievable). 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 Multiple atelectatic bands are noted in the bilateral basal segments. Diffuse interlobular septal thickening are noted involving bilateral lungs - sequelae of previous infection. The liver is normal in size and attenuation. No focal liver lesions are seen. There is no intra or extrahepatic biliary ductal dilatation. Hepatic vasculature is patent. The gallbladder shows intraluminal density - microlithiasis. No cholecystitis. The spleen, pancreas, and adrenal glands are unremarkable. The kidneys are normal in size and attenuation. There is no hydronephrosis or perinephric fat stranding. No renal calculi or renal masses are identified. Few simple cortical cyst are noted in both kidneys -stable. The ureters are normal in caliber and no ureteral calculi are seen. The bladder is normal in contour. Pelvic viscera are unremarkable. Evidence of multiple dilated small bowel loops are noted involving mid and lower quadrant of abdomen with maximum diameter measures about 4.2 cm showing internal air fluid level - suggest possibility of small bowel obstruction. No obvious acute transition point seen. Abdominal and pelvic vasculature is patent. No adenopathy or fluid collections are seen. No aggressive appearing osseous lesions are identified. Lower quadrant colostomy status with parastomal large bowel hernia without obvious incarceration. IMPRESSION: 1. Evidence of multiple dilated small bowel loops are noted involving mid and lower quadrant of abdomen with maximum diameter measures about 4.2 cm showing internal air fluid level - suggest possibility of small bowel obstruction. No obvious acute transition point seen.-new finding. 2. Lower quadrant colostomy status with parastomal large bowel hernia without obvious incarceration.-stable. 3. Cardiomegaly-stable. 4. Mild right pleural effusion with basal subsegmental collapse of right lower lobes are seen.-stable. 5. Multiple atelectatic bands are noted in the bilateral basal segments.-stable. 6. Diffuse interlobular septal thickening are noted involving bilateral lungs - sequelae of previous infection.-stable. 7. 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 Electronically signed by Savage Mendez 04-09-2025 02:21 AM Code Status & VTE Plan Code Status DNR/DNI VTE Prophylaxis Plan VTE Prophylaxis will be ordered: Yes PG Care Time/CCT Total # of Minutes Spent Total Time Spent with Patient: Total time spent is greater than 50% in coordination of care (as documented) at patient's floor/unit and/or counseling patient: Coding Level of Care Code 85516 INT INP/OBS CARE 3MIN Diagnoses SBO (small bowel obstruction) K56.609 Atrial fibrillation I48.91 Atrial fibrillation type: unspecified Interstitial lung disease J84.9 Diabetes mellitus, type 2 E11.9 (2) Atrial fibrillation Atrial fibrillation type: unspecified Qualified Code(s): I48.91 - Unspecified atrial fibrillation
[2025-04-09 03:15] LABS: INR 1.0 (0.9-1.1); Partial Thromboplastin Time 33 Seconds (21-31); Prothrombin Time 11.0 Seconds (9.0-12.0)
[2025-04-09] MEDS ORDERED: MoRPHine SULFATE 4 MG/ML 1 ML CARP\\VIAL IV PRN (03:31)
[2025-04-09] MEDS ORDERED: ACETAMINOPHEN 1000 MG/100 ML IV IV PRN (04:09)
[2025-04-09] MEDS ORDERED: CARBOHYDRATES FOR HYPOGLYCEMIA PO PRN (04:09)
[2025-04-09] MEDS ORDERED: GLUCAGON FOR INJ 1 MG VIAL SQ PRN (04:09)
[2025-04-09] MEDS ORDERED: GLUCOSE 10 TAB/TUBE PO PRN (04:09)
[2025-04-09] MEDS ORDERED: GLUCOSE 40% GEL 15 GM TUBE PO PRN (04:09)
[2025-04-09] MEDS ORDERED: ONDANSETRON INJ 2 MG/ML 2 ML VIAL IV PRN (04:09)
[2025-04-09] MEDS ORDERED: DEXTROSE 50% 50 ML SYRINGE IV PRN (04:09)
[2025-04-09] MEDS: PIPERACILLIN/TAZOBACTAM 4.5 GM/100 ML BAG IV ONE (04:52)
[2025-04-09] MEDS: LACTATED RINGER'S 1,000 ML IV SCH (04:52)
[2025-04-09] MEDS: INSULIN ASPART PER UNIT CHARGE SC SCH (06:08)
[2025-04-09 07:10] LABS: INR 1.0 (0.9-1.1); Prothrombin Time 11.2 Seconds (9.0-12.0)
[2025-04-09 08:06] LABS: Hematocrit (blood only) 40.4 % (42.0-52.0); Hemoglobin 13.2 g/dl (14.0-18.0); Immature Granulocytes # (auto) 0.08 K/uL (0.01-0.20); Immature Granulocytes % (auto) 1.1 %; Mean Corpuscular Hemoglobin 29.7 pg (25.0-34.0); Mean Corpuscular Volume 90.8 fL (80.0-100.0); Platelet Count 188 K/uL (130-400); RDW Standard Deviation 54.2 fL (36.4-46.3); Red Blood Count 4.45 M/uL (4.70-6.10); White Blood Count 7.04 K/ul (4.8-10.8)
[2025-04-09 08:12] LABS: Partial Thromboplastin Time 32 Seconds (21-31)
[2025-04-09 08:48] LABS: Appearance Urine Clear (Clear); Bacteria Urine Automated None Seen (None Seen); Cast Urine Automated 0-2 /lpf (0-2); Epithelial Cell Urine Auto 0-2 /hpf (0-2); Glucose Urine UA 3+ (Negative); RBC Urine Automated 0-2 /hpf (0-2); WBC Urine Automated 0-5 /hpf (0-5)
[2025-04-09] MEDS: PIPERACILLIN/TAZOBACTAM 4.5 GM/100 ML BAG IV SCH (08:54)
[2025-04-09] MEDS: PANTOprazole 40 MG/10 ML SYR IV SCH (08:54)
[2025-04-09] MEDS ORDERED: Heparin IV Adult Wt-Based Low-Dose *NO* INITIAL Bolus Protocol IV SCH (09:00)
[2025-04-09] MEDS: HEPARIN 25000 UNIT/500 ML D5W 25,000 UNITS/500 ML BAG IV SCH (09:00)
[2025-04-09] MEDS: ALBUT/IPRATROP 3MG/0.5MG NEB 3 ML VIAL NEB PRN (09:33)
[2025-04-09 10:36] LABS: Hemoglobin A1C 7.1 % (4.5-5.6)
[2025-04-09 15:59] LABS: ANTI-Xa, UFH(UnfractionatedHep 0.28 IU/ml (0.3-0.7)
[2025-04-09] MEDS: MoRPHine SULFATE 2 MG/ML CARP IV PRN (17:13)
[2025-04-09 22:22] LABS: ANTI-Xa, UFH(UnfractionatedHep 0.31 IU/ml (0.3-0.7)
[2025-04-10 07:10] LABS: Hematocrit (blood only) 39.9 % (42.0-52.0); Hemoglobin 12.7 g/dl (14.0-18.0); Immature Granulocytes # (auto) 0.02 K/uL (0.01-0.20); Immature Granulocytes % (auto) 0.4 %; Mean Corpuscular Hemoglobin 29.1 pg (25.0-34.0); Mean Corpuscular Volume 91.5 fL (80.0-100.0); Platelet Count 167 K/uL (130-400); RDW Standard Deviation 55.0 fL (36.4-46.3); Red Blood Count 4.36 M/uL (4.70-6.10); White Blood Count 4.62 K/ul (4.8-10.8)
[2025-04-10 07:37] LABS: Alanine Aminotransferase 14.0 U/L (7-52); Albumin Globulin Ratio 1.1 (0.9-2); Alkaline Phosphatase 59.0 U/L (34-104); Anion Gap 6.0 (3-11); Bilirubin,Total 0.8 mg/dl (0.2-1.0); Blood Urea Nitrogen 14.0 mg/dl (6-23); Calcium 8.6 mg/dl (8.6-10.3); Carbon Dioxide 28.0 mmol/L (21-32); Chloride 105.0 mmol/L (98-107); Creatinine Clr Calc Pharmacy 46.5 ml/min; Globulin 2.7 gm/dl (2.5-4.0); Glucose 88.0 mg/dl (70-99(Fasting)); Magnesium 2.1 mg/dl (1.7-2.4); Potassium 4.3 mmol/L (3.5-5.1); Sodium 139.0 mmol/L (136-145); Total Protein 5.7 gm/dl (6.0-8.3)
[2025-04-10 07:45] LABS: ANTI-Xa, UFH(UnfractionatedHep 0.29 IU/ml (0.3-0.7)
[2025-04-10 07:52] LABS: INR 1.0 (0.9-1.1); Partial Thromboplastin Time 49 Seconds (21-31); Prothrombin Time 11.2 Seconds (9.0-12.0)
--- NOTE | 2025-04-10 09:56 | Hospitalist Progress Note ---
Date of Service April 10, 2025 Assessment & Plan (1) SBO (small bowel obstruction): (2) Atrial fibrillation: (3) Interstitial lung disease: (4) Diabetes mellitus, type 2: Plan The patient is an 89-year-old male with a past medical history including small bowel obstructions, ILD, esophageal dysphagia, bladder spasm, stroke with residual effects, balance disorder, hypothyroidism, gout, hyperlipidemia, and diabetes mellitus type 2. He reports that his left lower quadrant ostomy has had less air in it over the past 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 CT also notes atelectasis bilaterally. From the ED patient received the following: Normal saline 500 mL bolus, morphine 4 mg IV x 2, and Zofran 4 mg IV. The patient was then referred to the medical admitting hospitalist service for medical admission. Recurrent small bowel obstruction- Symptoms are similar to previous episodes Although he has passed some gas Will continue NPO continue Acetaminophen 1 g IV every 8 hours as needed for mild pain or fever Morphine 2 mg IV every 3 hours as needed for moderate to severe pain Zofran 4 mg IV every 6 hours as needed Protonix 40 mg IV twice daily Zosyn 4.5 g IV every 8 hours LR at 80 mL/h General Surgery consult Left lower quadrant ostomy/large bowel hernia unchanged- As noted on CT scan Diabetes mellitus- Hold glipizide, metformin and empagliflozin Placed on Accu-Cheks with NovoLog SSI Check hemoglobin A1c Atrial fibrillation/hypertension- Hold oral diltiazem 120 mg at bedtime and metoprolol succinate [address] on Lopressor 2.5 mg IV every 4 hours with hold parameters Hold aspirin for Last dose of Xarelto was at 9 AM on 04/08 Start heparin drip low-dose without bolus at 9 AM on 04/09. PT/INR/PTT have been added to the emergency department laboratories Hyperlipidemia- Holding simvastatin while n.p.o. GERD- Changing pantoprazole from 40 mg p.o. to IV twice daily Iron Def Anemia Was supposed to get iron infusion today outpatient will order venofer Atelectasis- DuoNebs every 2 hours as needed Incentive spirometry every 4 hours while awake [facility] Admission and Anticipated Discharge Date Admission Date: April 09, 2025 Subjective patient seen and examined, said he passed gas, but from experience, his bowel obstruction is not yet resolved Review of Systems Review of Systems: All systems reviewed are negative, apart from the ones contained in the history. Physical Exam Physical Exam: The patient is awake, alert and oriented 3, well developed and well nourished, normocephalic and atraumatic, lying in bed and in no acute distress. HEENT--PERRL, EOMI, mucous membranes and oropharynx mildly dry. Neck--supple. No JVD. No bruits. Thyroid normal, trachea midline, no adenopathy. Heart--normal S1 and S2. No murmurs, rubs or gallops. Lungs--clear bilaterally, no respiratory distress, no accessory muscle use. Abdomen--decreased bowel sounds. Mildly firm. Nondistended. Left lower quadrant ostomy bag with small amount of stool and air Extremities--no cyanosis or clubbing. No edema. Dermatologic--normal skin turgor, normal color, no abnormal lymph nodes, no rash. Neurologic--cranial nerves II through XII grossly intact. Rheumatologic--normal range of motion. Psychiatric--normal affect. Results & Data Results & Data Vital Signs (Past 12 Hours) Vital Signs Temp Pulse Pulse Resp BP BP Pulse Ox 04/10/25 08:00 80 04/10/25 07:15 85 16 94 04/10/25 07:02 97.9 F 77 20 104/70 92 04/10/25 04:23 102 H 04/10/25 02:33 97.7 F 84 20 109/65 93 04/09/25 22:38 97.7 F 92 H 18 97/60 L 93 O2 Del Method 04/10/25 08:00 04/10/25 07:15 Room Air 04/10/25 07:02 Room Air 04/10/25 04:23 04/10/25 02:33 Room Air 04/09/25 22:38 Room Air PG Care Time/CCT Total # of Minutes Spent Total Time Spent with Patient: Total time spent is greater than 50% in coordination of care (as documented) at patient's floor/unit and/or counseling patient: Coding Level of Care Code 76822 SUB INP/OBS CARE 2/35MIN Diagnoses SBO (small bowel obstruction) K56.609 Atrial fibrillation I48.91 Atrial fibrillation type: unspecified Interstitial lung disease J84.9 Diabetes mellitus, type 2 E11.9 Time Spent (min) 35 (2) Atrial fibrillation Atrial fibrillation type: unspecified Qualified Code(s): I48.91 - Unspecified atrial fibrillation
[2025-04-10] MEDS: IRON SUCROSE 300 MG in SODIUM CHLORIDE 0.9% 250 ML IV ONE (11:11)
--- NOTE | 2025-04-10 11:55 | Surgery Progress Note ---
Date of Service April 10, 2025 Assessment & Plan (1) SBO (small bowel obstruction): Plan: He does have a little bit of flatus in his bag Will keep him n.p.o. for today, no plans for any operative intervention If he does not have meaningful return of bowel function by tomorrow, we will proceed with a p.o. contrast study in hopes this can be therapeutic Surgical follow-up Admission and Anticipated Discharge Date Admission Date: April 09, 2025 Subjective Patient seen and examined. Abdominal pain improved. Has some flatus in his o stomy bag, no stool. Afebrile. Review of Systems Constitutional: no fever and no chills Respiratory: no cough and no dyspnea Cardiovascular: no chest pain and no dyspnea on exertion Gastrointestinal: + abdominal pain and + constipation; no nausea and no vomiting Genitourinary: no dysuria or no nocturia Integumentary: no skin ulcer and no erythema Psychiatric: no behavioral changes and no depression Physical Exam Constitutional: WD/WN, vitals as above Eyes: PERRL, conjunctivae normal, anicteric sclerae ENMT: external ear and nose normal, oropharynx normal Respiratory: normal respiratory effort, lungs clear to auscultation Cardiovascular: RRR, no murmur, no edema Gastrointestinal (Abdomen): Inspection/Auscultation: abdomen normal to inspection; abdomen not distended Percussion/Palpation: abdomen soft and + hernia (Parastomal); abdomen nontender and no guarding Musculoskeletal: no cyanosis or clubbing, extremities motor strength 5/5 Psychiatric: A+Ox3, euthymic affect Results & Data Vital Signs (Past 12 Hours) Vital Signs Temp Pulse Pulse Resp BP BP Pulse Ox 04/10/25 10:36 36.4 C L 99 H 18 110/61 94 04/10/25 08:00 80 04/10/25 07:15 85 16 94 04/10/25 07:02 36.6 C 77 20 104/70 92 04/10/25 04:23 102 H 04/10/25 02:33 36.5 C 84 20 109/65 93 O2 Del Method 04/10/25 10:36 Room Air 04/10/25 08:00 04/10/25 07:15 Room Air 04/10/25 07:02 Room Air 04/10/25 04:23 04/10/25 02:33 Room Air PG Care Time/CCT Total # of Minutes Spent Total Time Spent with Patient: Total time spent is greater than 50% in coordination of care (as documented) at patient's floor/unit and/or counseling patient: Coding Level of Care Code 28583 SUB INP/OBS CARE 09/09MIN Diagnoses SBO (small bowel obstruction) K56.609
[2025-04-10 14:55] LABS: ANTI-Xa, UFH(UnfractionatedHep 0.33 IU/ml (0.3-0.7)
[2025-04-10] MEDS: METOPROLOL TARTRATE 1 MG/ML VIAL IV PRN (20:05)
[2025-04-11 06:03] LABS: Hematocrit (blood only) 42.6 % (42.0-52.0); Hemoglobin 13.4 g/dl (14.0-18.0); Immature Granulocytes # (auto) 0.04 K/uL (0.01-0.20); Immature Granulocytes % (auto) 0.9 %; Mean Corpuscular Hemoglobin 28.9 pg (25.0-34.0); Mean Corpuscular Volume 92.0 fL (80.0-100.0); Platelet Count 169 K/uL (130-400); RDW Standard Deviation 54.9 fL (36.4-46.3); Red Blood Count 4.63 M/uL (4.70-6.10); White Blood Count 4.25 K/ul (4.8-10.8)
[2025-04-11 06:22] LABS: Alanine Aminotransferase 14.0 U/L (7-52); Albumin Globulin Ratio 1.1 (0.9-2); Alkaline Phosphatase 60.0 U/L (34-104); Anion Gap 7.0 (3-11); Bilirubin,Total 0.7 mg/dl (0.2-1.0); Blood Urea Nitrogen 11.0 mg/dl (6-23); Calcium 8.9 mg/dl (8.6-10.3); Carbon Dioxide 28.0 mmol/L (21-32); Chloride 107.0 mmol/L (98-107); Creatinine Clr Calc Pharmacy 46.5 ml/min; Globulin 2.9 gm/dl (2.5-4.0); Glucose 85.0 mg/dl (70-99(Fasting)); Magnesium 2.2 mg/dl (1.7-2.4); Potassium 4.2 mmol/L (3.5-5.1); Sodium 142.0 mmol/L (136-145); Total Protein 6.1 gm/dl (6.0-8.3)
[2025-04-11 06:23] LABS: ANTI-Xa, UFH(UnfractionatedHep 0.32 IU/ml (0.3-0.7)
[2025-04-11 06:28] LABS: INR 1.1 (0.9-1.1); Partial Thromboplastin Time 67 Seconds (21-31); Prothrombin Time 11.4 Seconds (9.0-12.0)
--- NOTE | 2025-04-11 10:06 | Surgery Progress Note ---
Date of Service April 11, 2025 Assessment & Plan (1) SBO (small bowel obstruction): Plan: He tolerated clear liquid diet this morning and is started to have ostomy function Can advance his diet as tolerated, he can likely be discharged later today versus tomorrow Surgery will sign off at this time, please call with any questions or concerns Admission and Anticipated Discharge Date Admission Date: April 09, 2025 Subjective Patient seen and examined. Denies abdominal pain. He started having ostomy output. Denies nausea and vomiting. Review of Systems Constitutional: no fever and no chills Respiratory: no cough and no dyspnea Cardiovascular: no chest pain and no dyspnea on exertion Gastrointestinal: no abdominal pain, no nausea, no vomiting and no c onstipation Genitourinary: no dysuria or no nocturia Integumentary: no skin ulcer and no erythema Psychiatric: no behavioral changes and no depression Physical Exam Constitutional: WD/WN, vitals as above Eyes: PERRL, conjunctivae normal, anicteric sclerae ENMT: external ear and nose normal, oropharynx normal Respiratory: normal respiratory effort, lungs clear to auscultation Cardiovascular: RRR, no murmur, no edema Gastrointestinal (Abdomen): Inspection/Auscultation: abdomen normal to inspection; abdomen not distended Percussion/Palpation: abdomen soft and + hernia (Parastomal); abdomen nontender and no guarding Musculoskeletal: no cyanosis or clubbing, extremities motor strength 5/5 Psychiatric: A+Ox3, euthymic affect Results & Data Vital Signs (Past 12 Hours) Vital Signs Temp Pulse Pulse Resp BP BP Pulse Ox 04/11/25 08:00 85 04/11/25 07:53 118 H 04/11/25 07:38 155 H 130/83 04/11/25 07:19 73 16 94 04/11/25 03:29 36.4 C L 95 H 22 120/80 94 04/10/25 22:53 36.5 C 99 H 18 117/70 94 O2 Del Method 04/11/25 08:00 04/11/25 07:53 04/11/25 07:38 04/11/25 07:19 Room Air 04/11/25 03:29 Room Air 04/10/25 22:53 Room Air PG Care Time/CCT Total # of Minutes Spent Total Time Spent with Patient: Total time spent is greater than 50% in coordination of care (as documented) at patient's floor/unit and/or counseling patient: Coding Level of Care Code 98436 SUB INP/OBS CARE 09/09MIN Diagnoses SBO (small bowel obstruction) K56.609
[2025-04-11] MEDS ORDERED: Nursing to Pharmacy Communication SCH (10:15)
[2025-04-11 11:40] VITALS: PULSE 88; RESP 20; TEMP 97.7; O2SAT 95
[2025-04-11] MEDS: INSULIN ASPART PER UNIT CHARGE SC SCH (12:00)
--- NOTE | 2025-04-11 13:24 | Discharge Summary ---
Date of Service April 11, 2025 Admission HPI Per Admitting Provider The patient is an 89-year-old male with a past medical history including small bowel obstructions, ILD, esophageal dysphagia, bladder spasm, stroke with residual effects, balance disorder, hypothyroidism, gout, hyperlipidemia, and diabetes mellitus type 2. He reports that his left lower quadrant ostomy has had less air in it over the past 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 CT also notes atelectasis bilaterally. From the ED patient received the following: Normal saline 500 mL bolus, morphine 4 mg IV x 2, and Zofran 4 mg IV. The patient was then referred to the medical admitting hospitalist service for medical admission Admission Exam (Per Admitting) Constitutional WD/WN, vitals as above + thin; no acute distress Eyes PERRL, conjunctivae normal, anicteric sclerae no conjunctival abnormality ENMT external ear and nose normal, oropharynx normal Ears: no hearing impairment and no external ear abnormality Mouth: no oropharynx abnormality Neck trachea midline Respiratory normal respiratory effort, lungs clear to auscultation normal respiratory effort; no respiratory distress and no labored breathing Cardiovascular RRR, no murmur, no edema Rate/Rhythm: regular rate and regular rhythm Gastrointestinal (Abdomen) Inspection/Auscultation: abdomen normal to inspection; abdomen not distended Percussion/Palpation: abdomen soft and + hernia (Parastomal); abdomen nontender and no guarding Musculoskeletal no cyanosis or clubbing, extremities motor strength 5/5 Skin no rashes Neurologic moves all extremities Psychiatric A+Ox3, euthymic affect Discharge Data Consultations 04/09/25 02:27 Consult General Surgery Routine 04/09/25 02:33 ED Decision to Admit Stat Hospital Course (1) SBO (small bowel obstruction): (2) Atrial fibrillation: (3) Interstitial lung disease: (4) Diabetes mellitus, type 2: Plan The patient is an 89-year-old male with a past medical history including small bowel obstructions, ILD, esophageal dysphagia, bladder spasm, stroke with residual effects, balance disorder, hypothyroidism, gout, hyperlipidemia, and diabetes mellitus type 2. He reports that his left lower quadrant ostomy has had less air in it over the past 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 CT also notes atelectasis bilaterally. From the ED patient received the following: Normal saline 500 mL bolus, morphine 4 mg IV x 2, and Zofran 4 mg IV. The patient was then referred to the medical admitting hospitalist service for medical admission. Recurrent small bowel obstruction- Symptoms are similar to previous episodes Now resolved Passed gas and had a BM Discharge home Diabetes mellitus- Hold glipizide, metformin and empagliflozin Placed on Accu-Cheks with NovoLog SSI Check hemoglobin A1c Atrial fibrillation/hypertension- Resume home meds Hyperlipidemia- Holding simvastatin while n.p.o. GERD- Changing pantoprazole from 40 mg p.o. to IV twice daily Iron Def Anemia Was supposed to get iron infusion today outpatient will order venofer Atelectasis- DuoNebs every 2 hours as needed Incentive spirometry every 4 hours while awake MINA Coding Level of Care Code 31892 INP/OBS DISCH >30 MIN Diagnoses SBO (small bowel obstruction) K56.609 Atrial fibrillation I48.91 Atrial fibrillation type: unspecified Interstitial lung disease J84.9 Diabetes mellitus, type 2 E11.9 Time Spent (min) 35
[2025-04-11 13:41] VITALS: BP 109/65
--- NOTE | 2025-04-12 21:25 | Electrocardiogram Report ---
Test Reason : Blood Pressure : */* mmHG Vent. Rate : 104 BPM Atrial Rate : * BPM P-R Int : * ms QRS Dur : 140 ms QT Int : 364 ms P-R-T Axes : * 204 -9 degrees QTcB Int : 478 ms Poor data quality, interpretation may be adversely affected Atrial fibrillation with rapid ventricular response with premature ventricular or aberrantly conducte d complexes Right bundle branch block Anterior infarct , age undetermined Abnormal ECG When compared with ECG of 23-Mar-2025 14:05, Anterior infarct is now Present Confirmed by Lior Lee ([id number]) on 04/12/2025 9:25:04 PM Referred By: REFERRED SELF Confirmed By: Lior Lee
--- NOTE | 2025-04-12 21:25 | Electrocardiogram Report ---
Test Reason : Blood Pressure : */* mmHG Vent. Rate : 116 BPM Atrial Rate : * BPM P-R Int : * ms QRS Dur : 146 ms QT Int : 376 ms P-R-T Axes : * 197 -19 degrees QTcB Int : 522 ms Atrial fibrillation with rapid ventricular response with premature ventricular or aberrantly conducte d complexes Right bundle branch block Cannot rule out Inferior infarct , age undetermined Abnormal ECG When compared with ECG of 09-Apr-2025 00:16, Criteria for Anterior infarct are no longer Present Confirmed by Lior Lee ([id number]) on 04/12/2025 9:25:42 PM Referred By: REFERRED SELF Confirmed By: Lior Lee
== END 2025-04-11 14:22 | disposition home or self-care (01) | DRG 389 ==
LOC: SUATTDRO → ED 23:58 → 2S 04-09 03:05

== ENCOUNTER 2025-05-17 02:20 | Inpatient (IN) ==
--- NOTE | 2025-05-17 02:43 | Emergency Department Note ---
Impression & Plan SBO (small bowel obstruction) Admission ED Provider Note HPI: History obtained from patient. The patient is a 89-year-old gentleman with history of type 2 diabetes, recurrent small bowel obstruction, history of colon cancer status post partial bowel resection with ostomy, presents the emergency department with chief complaint of diminished output from his ostomy bag with intermittent abdominal cramping. Patient states he is concerned that he might have another small bowel obstruction. Patient has had these recurrently in the past, he states they usually resolve without surgical intervention. On arrival here to the ED the patient is hemodynamically stable, he otherwise appears to be in no acute distress. ROS: - Per HPI Differential Diagnosis: Viral gastroenteritis, small bowel obstruction, perforated viscus, constipation, amongst other potential pathologies. *Outpatient medications and allergy history reviewed. PE: General: Alert, frail-appearing HEENT: Normocephalic, trachea midline Eyes: Extraocular eye movement is intact, no scleral erythema Pulmonary: Clear to auscultation bilaterally, no wheezing Cardio: Regular rate and rhythm GI: Abdomen is soft to palpation, there is mild tenderness in the lower abdomen to palpation, ostomy is present in the left lower quadrant of the abdomen with gas and a small amount of stool present : No suprapubic tenderness MSK: No evidence of trauma or malformation of the extremities, no edema Skin: No evidence of rash Neuro: Alert, no focal deficits Psychiatric: Cooperative INDEPENDENT INTERPRETATIONS: alarm security or surveillance monitor: (As interpreted by myself): - An order was placed for continuous cardiac monitoring - Patient was noted to be in atrial fibrillation with a rate of 75 Interventions provided in ED: - IV fluid bolus, IV morphine, IV Zofran Medical Decision Making: IV was established and lab work obtained, patient was placed on satellite project site monitor. Lab work shows no leukocytosis, hemoglobin is normal, platelet count is normal, CMP does not show any evidence of any critical findings, lactic acid is within normal limits, urinalysis shows 3+ glucose but no evidence of infection. CT imaging of the abdomen was obtained and does suggest small bowel obstruction without an obvious transition point. This appears to be consistent with previous imaging when the patient was admitted for SBO. Patient states he feels improved following 2 rounds of morphine, he is still having some mild abdominal discomfort. He will require admission for observation and symptomatic management as well as n.p.o. status. Previously his obstructions have resolved without surgical intervention. He has not had any active vomiting, therefore will forego NG tube placement. General surgery consultation was placed. [facility] hospitalist service was consulted for admission and the patient was placed for admission in stable condition. Patient was in agreement to this plan. Consultants/Discussions held with other healthcare providers: - Hospitalist, Dr. Pruett - General Surgery, Dr. Cortez Disposition discussion held by myself with: - Patient Diagnosis: 1. Small bowel obstruction, acute 2. History of recurrent bowel obstructions 3. History of partial bowel resection status post ostomy placement Disposition: Admission Jason Dee DO Emergency Medicine Past Med/Surg History Problem List (Updated 05/17/25 @ 06:40 by Jason Dee DO) SBO (small bowel obstruction) (Acute) Bronchiectasis Interstitial lung disease Dyspnea SBO (small bowel obstruction) (Acute) Fall from standing (Acute) CHLOE (iron deficiency anemia) H/O: stroke with residual effects Balance disorder History of small bowel obstruction Expressive aphasia GERD (gastroesophageal reflux disease) Memory deficits Hypothyroidism Gout Mitral regurgitation Hyperlipidemia Diabetes mellitus, type 2 Medical History (Updated 05/17/25 @ 06:40 by Jason Dee DO) Gross hematuria Esophageal dysphagia SBO (small bowel obstruction) Mitral regurgitation Hx of gout H/O balance disorder due to iron deficiency causing weakness Dyspnea hx, feels its associated with his low iron and weakness Hx of hyperlipidemia History of hypothyroidism CHLOE (iron deficiency anemia) "gets infusions from janeth gomez" History of dysphagia Diabetes mellitus, type 2 Atrial fibrillation f/u janeth harden cardio Hypertension On anticoagulant therapy xarelto daily Wernicke's aphasia CVA (cerebral vascular accident) hx, 05/27/22-Wernicke's aphasia Classic migraine hx Hiatal hernia Cerebellar hemorrhage hx CKD (chronic kidney disease) Hypertrophy of both inferior nasal turbinates Chronic rhinitis Rotator cuff tear Per MRI 02/2020. Followed by orthopedics. Declined operative management. Colostomy in place Peripheral neuropathy Transient ischemic attack (TIA) hx, 12/18/22 B12 deficiency History of anesthesia reaction had hallucinations 02/2017 w/procedure with dr. 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 History of colon cancer 1978 Surgical History H/O hernia repair Hx of abdominal surgery bowel obstruction History of total right hip replacement Hx of vasectomy History of colostomy History of bowel resection for colon cancer History of colonoscopy History of esophagogastroduodenoscopy (EGD) 06/2021 Hiatal hernia small, gastritis Status post Mohs surgery for basal cell carcinoma History of root canal procedure History of wisdom tooth extraction History of tonsillectomy and adenoidectomy History of phacoemulsification of cataract of both eyes with intraocular lens implantation History of cardioversion x2, most recent was years ago Family History Father , age 91 Hypertension Diabetes Mother , age 64 metastatic breast cancer Breast cancer Ovarian cancer Brother Colorectal cancer Other Coronary heart disease No family history of adverse response to anesthesia Denies family history of Prostate cancer Crohn's disease Myocardial infarction Lung cancer Inflammatory bowel disease Social History Smoking Status: Never smoker Tobacco Type: Pipe Age Started Using Tobacco: 22; Age Quit Using Tobacco: 52; Second Hand Exposure: Yes (hx); Do You Dip or Chew Tobacco: No; Hx Alcohol Use: No Hx Substance Use: No Preferred Language: Palestinian Communication Ability: Effective Visual Impairment: No Limitations Hearing Ability: Normal Sheeting Puller Required: No Beliefs That Will Affect Care: None marital status: Current Living Situation: Spouse Current Living Situation Comment: lives with , son lives close by current occupational 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, [employer] How many Children do You have: 1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 Feels Safe at Home: Yes Childhood Exposure to Second-Hand Smoke: Yes (father smoked in home ) Diet: regular Diet Comment: low fiber caffeine: Yes (drinks coffee daily about half a cup ) Dental Care, Regularly: Yes Physical Activity Frequency: 3-4 Times per Week Physical Activity Frequency Comment: says he is a tub tender/ play golf Seatbelt Use: always Sunscreen Use: No (says he does cover up well ) Do you think of yourself as: straight/heterosexual Assistive Devices: Cane Allergies Allergies Allergy/AdvReac Type Severity Reaction Status Date / Time tetanus toxoid, adsorbed Allergy Intermediate BLISTERS Verified 05/17/25 02:50 AND EYES SWELLING hydromorphone AdvReac Intermediate HALLUCINATI Verified 05/17/25 02:50 ONS lorazepam AdvReac Intermediate HALLUCINATI Verified 05/17/25 02:50 ONS Home Meds Home Medications Medication Instructions Recorded Confirmed mecobalamin (vitamin B12) 1,000 1,000 mcg PO QPM 07/23/20 05/17/25 mcg chewable tablet cholecalciferol (vitamin D3) 50 50 mcg PO QAM 12/10/20 05/17/25 mcg (2,000 unit) capsule [id number] 300 mcg-K 60 1 tab PO QPM 12/10/20 05/17/25 mcg-lycop 600 mcg-lutein 300 mcg tablet (Centrum Silver Men) ferrous sulfate 325 mg (65 mg 325 mg PO HS 09/29/24 05/17/25 iron) tablet lactobacillus combination no.9 4 4,000 mmu cells PO QPM 03/06/25 05/17/25 billion cell capsule (Adult 50 Plus Probiotic) aspirin 81 mg tablet,delayed 81 mg PO HS 03/08/25 05/17/25 release (Adult Low Dose Aspirin) empagliflozin 25 mg tablet 25 mg PO QPM 03/08/25 05/17/25 metoprolol succinate 50 mg 50 mg PO QAM 03/08/25 05/17/25 tablet,extended release 24 hr rivaroxaban 15 mg tablet (Xarelto) 15 mg PO QAM 03/08/25 05/17/25 Saccharomyces boulardii 250 mg 250 mg PO QAM 03/23/25 05/17/25 capsule (Florastor) Previous Rx's Medication Instructions Recorded metformin 500 mg tablet,extended 500 mg PO QPM #90 tabs 05/03/24 release 24 hr glipizide 5 mg tablet, extended 5 mg PO QAM #90 tabs 06/26/24 release 24 hr pantoprazole 40 mg tablet,delayed 40 mg PO BID #180 tabs 08/21/24 release diltiazem HCl 120 mg 120 mg PO HS #90 caps 03/26/25 capsule,extended release 24 hr (Cartia XT) levothyroxine 50 mcg tablet 50 mcg PO QPM #90 tabs 03/28/25 simvastatin 40 mg tablet 40 mg PO HS #90 tabs 04/12/25 ipratropium 0.5 mg-albuterol 3 mg 3 ml inhalation Q8H use with 04/18/25 (2.5 mg base)/3 mL nebulization nebulizer 2 to 3 times daily #180 soln mL Flutter Valve #1 ea 04/19/25 nebulizer accessories #1 ea 04/19/25 nebulizer and compressor #1 ea 04/19/25 Results & Data (ED) Vital Signs Vital Signs - 24 hr 05/17/25 02:23 05/17/25 02:55 05/17/25 02:55 Temperature 36.5 C Temperature Source Temporal Artery Scan Pulse Rate 101 H Pulse Rate [Apical] 80 Respiratory Rate 20 19 Respiratory Effort / Characteristics Respiratory Depth Respiratory Pattern Blood Pressure 126/89 Blood Pressure [Right Arm] 126/79 Blood Pressure Mean 101 Blood Pressure Mean [Right Arm] 94 Pulse Oximetry 96 98 98 Oxygen Delivery Method Room Air Room Air Oxygen Flow Rate Sepsis Recent Fever Within 48 Hours No Sepsis New/Unexplained Change in Mental Status No Sepsis Action Taken by Nursing No Action Required 05/17/25 03:46 05/17/25 05:00 05/17/25 06:00 Temperature Temperature Source Temporal Artery Scan Pulse Rate 77 Pulse Rate [Apical] 82 78 Respiratory Rate 18 17 Respiratory Effort / Characteristics Non-Labored Spontaneous Non-Labored Spontaneous Respiratory Depth Normal Normal Respiratory Pattern Regular Regular Blood Pressure Blood Pressure [Right Arm] 126/78 106/72 Blood Pressure Mean Blood Pressure Mean [Right Arm] 94 83 Pulse Oximetry 96 98 Oxygen Delivery Method Room Air Nasal Cannula Oxygen Flow Rate 2 Sepsis Recent Fever Within 48 Hours Sepsis New/Unexplained Change in Mental Status Sepsis Action Taken by Nursing Laboratory Data 05/17/25 02:35 05/17/25 02:35 Lab Results 05/17/25 05/17/25 05/17/25 Range/Units 02:35 03:19 05:02 WBC 9.99 (4.8-10.8) K/ul RBC 5.12 (4.70-6.10) M/uL Hgb 15.5 (14.0-18.0) g/dl Hct 47.5 (42.0-52.0) % MCV 92.8 (80.0-100.0) fL MCH 30.3 (25.0-34.0) pg MCHC 32.6 (32.0-36.0) g/dL RDW Std Deviation 54.8 H (36.4-46.3) fL RDW Coeff of [place] 16.1 H (11.5-14.5) % Plt Count 251 (130-400) K/uL MPV 8.8 L (9.4-12.4) fL Immature Gran % (Auto) 1.2 % Neut % (Auto) 76.5 % Lymph % (Auto) 9.0 % [place] % (Auto) 9.6 % Eos % (Auto) 2.7 % Baso % (Auto) 1.0 % Neut # (Auto) 7.64 H (1.40-6.50) K/uL Lymph # (Auto) 0.90 L (1.20-3.40) K/uL [place] # (Auto) 0.96 H (0.11-0.59) K/uL Eos # (Auto) 0.27 (0.00-0.50) K/uL Baso # (Auto) 0.10 (0.00-0.20) K/uL Immature Gran # (Auto) 0.12 (0.01-0.20) K/uL Sodium 137 (136-145) mmol/L Potassium 4.3 (3.5-5.1) mmol/L Chloride 102 (98-107) mmol/L Carbon Dioxide 28 (21-32) mmol/L Anion Gap 7 (3-11) BUN 19 (6-23) mg/dl Creatinine 1.13 (0.6-1.4) mg/dl Est Cr Clr Drug Dosing 36.5 ml/min eGFR 62.91 BUN/Creatinine Ratio 16.8 (10-20) Glucose 151 H (70-99(Fasting)) mg/dl Lactate 1.0 (0.4-2.0) mmol/L Calcium 9.8 (8.6-10.3) mg/dl Total Bilirubin 0.7 (0.2-1.0) mg/dl AST 21 (13-39) U/L ALT 17 (7-52) U/L Alkaline Phosphatase 80 (34-104) U/L Total Protein 7.7 (6.0-8.3) gm/dl Albumin 4.2 (3.4-5.0) gm/dl Globulin 3.5 (2.5-4.0) gm/dl Albumin/Globulin Ratio 1.2 (0.9-2) Lipase 21 (11-82) U/L Urine Color Yellow Urine Appearance Clear (Clear) Urine pH 6.0 (4.5-7.5) Ur Specific [place] > 1.045 H (1.000-1.030) Urine Protein Trace H (Negative) Urine Glucose (UA) 3+ H (Negative) Urine Ketones Negative (Negative) Urine Blood Negative (Negative) Urine Nitrite Negative (Negative) Urine Bilirubin Negative (Negative) Urine Urobilinogen Negative (Negative) Ur Leukocyte Esterase Negative (Negative) Urine WBC (Auto) 0-5 (0-5) /hpf Urine RBC (Auto) 0-2 (0-2) /hpf U Hyaline Cast (Auto) 0-2 (0-2) /lpf U Epithel Cells (Auto) 0-2 (0-2) /hpf Urine Bacteria (Auto) None Seen (None Seen) Urine Comment Administered Medications Discontinued Medications Sodium Chloride (Nss) 500 mls @ 999 mls/hr IV .Q31M STA Stop: 05/17/25 03:02 Last Infusion: 05/17/25 03:50 Dose: Infused Documented By: abl Admin: 05/17/25 03:05 Dose: 999 mls/hr Documented By: abl Ioversol (Optiray 320 100ml) 94 ml IV ONCE ONE Stop: 05/17/25 04:12 Last Admin: 05/17/25 04:15 Dose: 94 ml Documented By: SH Morphine Sulfate (Morphine Sulfate 4 Mg/Ml 1 Ml Carp\\Vial) 4 mg IV NOW STA Stop: 05/17/25 03:09 Last Admin: 05/17/25 03:16 Dose: 4 mg Documented By: abl Morphine Sulfate (Morphine Sulfate 4 Mg/Ml 1 Ml Carp\\Vial) 4 mg IV NOW STA Stop: 05/17/25 05:53 Last Admin: 05/17/25 05:57 Dose: 4 mg Documented By: BRYCE Ondansetron HCl (Ondansetron Inj 2 Mg/Ml 2 Ml Vial) 4 mg IV NOW STA Stop: 05/17/25 03:09 Last Admin: 05/17/25 03:17 Dose: 4 mg Documented By: abl Imaging Data Radiologist's Impression: Abdomen/Pelvis CT 05/17/25 02:41 EXAM: CT abd pelvis IV con only CLINICAL HISTORY: Abdominal pain, eval for SBO TECHNIQUE: Contiguous axial images were obtained from the level of the diaphragm to the pubic symphysis with intravenous contrast. Coronal and sagittal reconstructions were likewise performed and indicated to increase the sensitivity for detecting clinically relevant pathology. If IV contrast material had not been administered, the likelihood of detecting abnormalities relevant to the patient's condition would have been substantially decreased. The CT scan was performed according to ALARA (as low as reasonably achievable). COMPARISON: 00:16:00 ONION TIER. FINDINGS: Moderate fluid collection is noted in the right pleural cavity with enhancing pleural thickening; the possibility of infective etiology is likely. Multiple interlobular and intralobular septal thickening with superimposed ground-glass haze are noted in both lungs, likely sequelae of prior infection. The liver is normal in size and attenuation. No focal liver lesions are seen. There is no intrahepatic or extrahepatic biliary ductal dilatation. Hepatic vasculature is patent. The gallbladder shows microlithiasis without cholecystitis. The spleen, pancreas, and adrenal glands are unremarkable. The kidneys are normal in size and attenuation. There is no hydronephrosis or perinephric fat stranding. No renal calculi or renal masses are identified. The ureters are normal in caliber, and no ureteral calculi are seen. The bladder is normal in contour. Pelvic viscera are unremarkable. Evidence of multiple dilated small bowel loops is noted in the left side of the mid and lower quadrant of the abdomen, with a maximum diameter measuring up to 4 cm, suggestive of small bowel obstruction. At present, no obvious acute transition point is seen, with tapered narrowing and collapse of yellow is seen. This may suggest the possibility of ileus. Left lower quadrant ileostomy status with small parastomal hernia. No obvious localized complication. Large bowel appears decompressed. No imaging evidence of appendicitis. Abdominal and pelvic vasculature is patent. No adenopathy or fluid collections are seen in abdomen. No aggressive appearing osseous lesions are identified. IMPRESSION: Moderate fluid collection is noted in the right pleural cavity with CT-enhancing pleural thickening; possibility of infective etiology is likely. Stable. Multiple interlobular and intralobular septal thickening with superimposed ground-glass haze are noted in both lungs, likely sequelae of prior infection. Stable. Evidence of multiple dilated small bowel loops is noted in the left side of the mid and lower quadrant of the abdomen, with a maximum diameter measuring up to 4 cm, suggestive of small bowel obstruction. At present, no obvious acute transition point is seen, with tapered narrowing and collapse of yellow is seen. May suggest the possibility of ileus. Stable. Left lower quadrant ileostomy status with small parastomal hernia. No obvious localized complication. Stable. Large bowel appears decompressed. Stable. Uncomplicated cholelithiasis. Stable. No other new interval abnormality since prior study. Electronically signed by Savage Mendez 05-17-2025 06:29 AM Discharge Plan Visit Data Chief Complaint: GI Assessment Stated Complaint: THINKS HAVE BLOCKAGE IN BOWEL ED Provider: Jason Dee Discharge Problem: SBO (small bowel obstruction) Patient Disposition: Admitted As Inpatient Condition: Fair Forms Stand Alone Forms: My [facility] [employer] Prescriptions Prescriptions: No Action metformin 500 mg tablet extended release 24 hr 500 mg PO QPM Qty: 90 3RF Patient Comments: w/dinner glipizide 5 mg tablet extended release 24hr 5 mg PO QAM Qty: 90 3RF pantoprazole 40 mg tablet,delayed release (DR/EC) 40 mg PO BID Qty: 180 3RF diltiazem HCl [Cartia XT] 120 mg capsule,extended release 24hr 120 mg PO HS Qty: 90 3RF levothyroxine 50 mcg tablet 50 mcg PO QPM Qty: 90 3RF Rx Instructions: about lunchtime last TSH 03/23/25 1.833 simvastatin 40 mg tablet 40 mg PO HS Qty: 90 3RF (DME) nebulizer accessories Misc See Rx Instructions .Route Qty: 1 0RF Rx Instructions: As directed (DME) nebulizer and compressor Device See Rx Instructions .Route Qty: 1 0RF Rx Instructions: As directed (DME) Flutter Valve Device See Rx Instructions .Route Qty: 1 0RF Rx Instructions: As directed mecobalamin (vitamin B12) 1,000 mcg tablet,chewable 1,000 mcg PO QPM Centrum Silver Men 300-600-300 mcg tablet 1 tab PO QPM cholecalciferol (vitamin D3) 50 mcg (2,000 unit) capsule 50 mcg PO QAM Adult 50 Plus Probiotic 4 billion cell capsule 4,000 mmu cells PO QPM Rx Instructions: administer with a meal ferrous sulfate 325 mg (65 mg iron) tablet 325 mg PO HS ipratropium-albuterol 0.5 mg-3 mg(2.5 mg base)/3 mL solution for nebulization 3 ml inhalation Q8H Qty: 180 4RF Saccharomyces boulardii [Florastor] 250 mg Capsule 250 mg PO QAM metoprolol succinate 50 mg tablet extended release 24 hr 50 mg PO QAM aspirin [Adult Low Dose Aspirin] 81 mg tablet,delayed release (DR/EC) 81 mg PO HS Xarelto 15 mg tablet 15 mg PO QAM Rx Instructions: must administer with evening meal empagliflozin 25 mg tablet 25 mg PO QPM Referrals Referrals: Romulo Barker DO [Primary Care Provider] -
[2025-05-17] MEDS: SODIUM CHLORIDE 0.9% 500 ML IV STA (03:05)
[2025-05-17 03:10] LABS: Hematocrit (blood only) 47.5 % (42.0-52.0); Hemoglobin 15.5 g/dl (14.0-18.0); Immature Granulocytes # (auto) 0.12 K/uL (0.01-0.20); Immature Granulocytes % (auto) 1.2 %; Mean Corpuscular Hemoglobin 30.3 pg (25.0-34.0); Mean Corpuscular Volume 92.8 fL (80.0-100.0); Platelet Count 251 K/uL (130-400); RDW Standard Deviation 54.8 fL (36.4-46.3); Red Blood Count 5.12 M/uL (4.70-6.10); White Blood Count 9.99 K/ul (4.8-10.8)
[2025-05-17] MEDS: MoRPHine SULFATE 4 MG/ML 1 ML CARP\\VIAL IV STA ×2 (03:16→05:57)
[2025-05-17] MEDS: ONDANSETRON INJ 2 MG/ML 2 ML VIAL IV STA (03:17)
[2025-05-17 03:27] LABS: Alanine Aminotransferase 17.0 U/L (7-52); Albumin Globulin Ratio 1.2 (0.9-2); Albumin Level 4.2 gm/dl (3.4-5.0); Alkaline Phosphatase 80.0 U/L (34-104); Anion Gap 7.0 (3-11); Bilirubin,Total 0.7 mg/dl (0.2-1.0); Blood Urea Nitrogen 19.0 mg/dl (6-23); Calcium 9.8 mg/dl (8.6-10.3); Carbon Dioxide 28.0 mmol/L (21-32); Chloride 102.0 mmol/L (98-107); Creatinine Clr Calc Pharmacy 36.5 ml/min; Globulin 3.5 gm/dl (2.5-4.0); Glucose 151.0 mg/dl (70-99(Fasting)); Lipase 21.0 U/L (11-82); Potassium 4.3 mmol/L (3.5-5.1); Sodium 137.0 mmol/L (136-145); Total Protein 7.7 gm/dl (6.0-8.3)
[2025-05-17] MEDS: OPTIRAY 320 100ml IV ONE (04:15)
[2025-05-17 05:22] LABS: Appearance Urine Clear (Clear); Bacteria Urine Automated None Seen (None Seen); Cast Urine Automated 0-2 /lpf (0-2); Epithelial Cell Urine Auto 0-2 /hpf (0-2); Glucose Urine UA 3+ (Negative); RBC Urine Automated 0-2 /hpf (0-2); WBC Urine Automated 0-5 /hpf (0-5)
--- NOTE | 2025-05-17 06:30 | CT Scan Report ---
EXAM: CT abd pelvis IV con only CLINICAL HISTORY: Abdominal pain, eval for SBO TECHNIQUE: Contiguous axial images were obtained from the level of the diaphragm to the pubic symphysis with intravenous contrast. Coronal and sagittal reconstructions were likewise performed and indicated to increase the sensitivity for detecting clinically relevant pathology. If IV contrast material had not been administered, the likelihood of detecting abnormalities relevant to the patient's condition would have been substantially decreased. The CT scan was performed according to ALARA (as low as reasonably achievable). COMPARISON: 00:16:00 SHERIFF. FINDINGS: Moderate fluid collection is noted in the right pleural cavity with enhancing pleural thickening; the possibility of infective etiology is likely. Multiple interlobular and intralobular septal thickening with superimposed ground-glass haze are noted in both lungs, likely sequelae of prior infection. The liver is normal in size and attenuation. No focal liver lesions are seen. There is no intrahepatic or extrahepatic biliary ductal dilatation. Hepatic vasculature is patent. The gallbladder shows microlithiasis without cholecystitis. The spleen, pancreas, and adrenal glands are unremarkable. The kidneys are normal in size and attenuation. There is no hydronephrosis or perinephric fat stranding. No renal calculi or renal masses are identified. The ureters are normal in caliber, and no ureteral calculi are seen. The bladder is normal in contour. Pelvic viscera are unremarkable. Evidence of multiple dilated small bowel loops is noted in the left side of the mid and lower quadrant of the abdomen, with a maximum diameter measuring up to 4 cm, suggestive of small bowel obstruction. At present, no obvious acute transition point is seen, with tapered narrowing and collapse of yellow is seen. This may suggest the possibility of ileus. Left lower quadrant ileostomy status with small parastomal hernia. No obvious localized complication. Large bowel appears decompressed. No imaging evidence of appendicitis. Abdominal and pelvic vasculature is patent. No adenopathy or fluid collections are seen in abdomen. No aggressive appearing osseous lesions are identified. IMPRESSION: Moderate fluid collection is noted in the right pleural cavity with CT-enhancing pleural thickening; possibility of infective etiology is likely. Stable. Multiple interlobular and intralobular septal thickening with superimposed ground-glass haze are noted in both lungs, likely sequelae of prior infection. Stable. Evidence of multiple dilated small bowel loops is noted in the left side of the mid and lower quadrant of the abdomen, with a maximum diameter measuring up to 4 cm, suggestive of small bowel obstruction. At present, no obvious acute transition point is seen, with tapered narrowing and collapse of yellow is seen. May suggest the possibility of ileus. Stable. Left lower quadrant ileostomy status with small parastomal hernia. No obvious localized complication. Stable. Large bowel appears decompressed. Stable. Uncomplicated cholelithiasis. Stable. No other new interval abnormality since prior study. Electronically signed by Savage Mendez 05-17-2025 06:29 AM
--- NOTE | 2025-05-17 07:20 | History & Physical Report ---
Date of Service May 17, 2025 Assessment & Plan (1) SBO (small bowel obstruction): Plan Small bowel obstruction NPO, IV fluids, historically resolves with conservative management Pain control with acetaminophen 1st line, Toradol 2nd line, Morphine try to avoid but 3rd line Ondansetron for nausea Will defer NG tube as no current nausea/vomiting T2DM Hold PO meds BSG q6h while NPO then ACHS Insulin as needed for correction Permanent atrial fibrillation Rate controlled, will continue his usual diltiazem and metoprolol GERD Continue pantoprazole Hypothyroidism TSH normal in March Continue his usual levothyroxine dosing VTE Prophylaxis - Xarelto Disposition - admit to med/surg History of Present Illness Chief Complaint: Abdominal pain Primary Care Provider: Romulo Barker DO Amilcar Morin is an 89 year old male who presents to the ER with abdominal pain. He has a significant history of colon cancer with partial bowel resection and ostomy with recurrent bowel obstructions and feels this is similar. He has had diminished output from his ostomy with abdominal cramping. Historically these bowel obstruction resolve with conservative measures. Allergies Allergy/AdvReac Type Severity Reaction Status Date / Time tetanus toxoid, adsorbed Allergy Intermediate BLISTERS Verified 05/17/25 02:50 AND EYES SWELLING hydromorphone AdvReac Intermediate HALLUCINATI Verified 05/17/25 02:50 ONS lorazepam AdvReac Intermediate HALLUCINATI Verified 05/17/25 02:50 ONS Home Medications Medication Instructions Recorded Confirmed Type mecobalamin (vitamin B12) 1,000 1,000 mcg PO QPM 07/23/20 05/17/25 History mcg chewable tablet cholecalciferol (vitamin D3) 50 50 mcg PO QAM 12/10/20 05/17/25 History mcg (2,000 unit) capsule [id number] 300 mcg-K 60 1 tab PO QPM 12/10/20 05/17/25 History mcg-lycop 600 mcg-lutein 300 mcg tablet (Centrum Silver Men) metformin 500 mg tablet,extended 500 mg PO QPM #90 tabs 05/03/24 05/17/25 Rx release 24 hr glipizide 5 mg tablet, extended 5 mg PO QAM #90 tabs 06/26/24 05/17/25 Rx release 24 hr pantoprazole 40 mg tablet,delayed 40 mg PO BID #180 tabs 08/21/24 05/17/25 Rx release ferrous sulfate 325 mg (65 mg 325 mg PO HS 09/29/24 05/17/25 History iron) tablet lactobacillus combination no.9 4 4,000 mmu cells PO QPM 03/06/25 05/17/25 History billion cell capsule (Adult 50 Plus Probiotic) aspirin 81 mg tablet,delayed 81 mg PO HS 03/08/25 05/17/25 History release (Adult Low Dose Aspirin) empagliflozin 25 mg tablet 25 mg PO QPM 03/08/25 05/17/25 History metoprolol succinate 50 mg 50 mg PO QAM 03/08/25 05/17/25 History tablet,extended release 24 hr rivaroxaban 15 mg tablet (Xarelto) 15 mg PO QAM 03/08/25 05/17/25 History Saccharomyces boulardii 250 mg 250 mg PO QAM 03/23/25 05/17/25 History capsule (Florastor) diltiazem HCl 120 mg 120 mg PO HS #90 caps 03/26/25 05/17/25 Rx capsule,extended release 24 hr (Cartia XT) levothyroxine 50 mcg tablet 50 mcg PO QPM #90 tabs 03/28/25 05/17/25 Rx simvastatin 40 mg tablet 40 mg PO HS #90 tabs 04/12/25 05/17/25 Rx ipratropium 0.5 mg-albuterol 3 mg 3 ml inhalation Q8H use with 04/18/25 05/17/25 Rx (2.5 mg base)/3 mL nebulization nebulizer 2 to 3 times daily #180 soln mL Flutter Valve #1 ea 04/19/25 Rx nebulizer accessories #1 ea 04/19/25 Rx nebulizer and compressor #1 ea 04/19/25 Rx Past Med/Surg History Problem List (Updated 05/17/25 @ 09:42 by Amilcar Cortez MD) Ileus SBO (small bowel obstruction) (Acute) Bronchiectasis Interstitial lung disease Dyspnea SBO (small bowel obstruction) (Acute) Fall from standing (Acute) CHLOE (iron deficiency anemia) H/O: stroke with residual effects Balance disorder History of small bowel obstruction Expressive aphasia GERD (gastroesophageal reflux disease) Memory deficits Hypothyroidism Gout Mitral regurgitation Hyperlipidemia Diabetes mellitus, type 2 Medical History (Updated 05/17/25 @ 09:42 by Amilcar Cortez MD) Gross hematuria Esophageal dysphagia SBO (small bowel obstruction) Mitral regurgitation Hx of gout H/O balance disorder due to iron deficiency causing weakness Dyspnea hx, feels its associated with his low iron and weakness Hx of hyperlipidemia History of hypothyroidism CHLOE (iron deficiency anemia) "gets infusions from janeth gomez" History of dysphagia Diabetes mellitus, type 2 Atrial fibrillation f/u janeth harden cardio Hypertension On anticoagulant therapy xarelto daily Wernicke's aphasia CVA (cerebral vascular accident) hx, 05/27/22-Wernicke's aphasia Classic migraine hx Hiatal hernia Cerebellar hemorrhage hx CKD (chronic kidney disease) Hypertrophy of both inferior nasal turbinates Chronic rhinitis Rotator cuff tear Per MRI 02/2020. Followed by orthopedics. Declined operative management. Colostomy in place Peripheral neuropathy Transient ischemic attack (TIA) hx, 12/18/22 B12 deficiency History of anesthesia reaction had hallucinations 02/2017 w/procedure with dr. 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 History of colon cancer 1979 Surgical History H/O hernia repair Hx of abdominal surgery bowel obstruction History of total right hip replacement Hx of vasectomy History of colostomy History of bowel resection for colon cancer History of colonoscopy History of esophagogastroduodenoscopy (EGD) 06/2021 Hiatal hernia small, gastritis Status post Mohs surgery for basal cell carcinoma History of root canal procedure History of wisdom tooth extraction History of tonsillectomy and adenoidectomy History of phacoemulsification of cataract of both eyes with intraocular lens implantation History of cardioversion x2, most recent was years ago Family History Father , age 91 Hypertension Diabetes Mother , age 64 metastatic breast cancer Breast cancer Ovarian cancer Brother Colorectal cancer Other Coronary heart disease No family history of adverse response to anesthesia Denies family history of Prostate cancer Crohn's disease Myocardial infarction Lung cancer Inflammatory bowel disease Social History Smoking Status: Former smoker Tobacco Type: Pipe Age Started Using Tobacco: 22; Age Quit Using Tobacco: 52; Second Hand Exposure: Yes (hx); Do You Dip or Chew Tobacco: No; Hx Alcohol Use: No Hx Substance Use: No Preferred Language: [place] Communication Ability: Effective Visual Impairment: No Limitations Hearing Ability: Normal News Writer Required: No Beliefs That Will Affect Care: None marital status: Current Living Situation: Alone and Spouse Current Living Situation Comment: lives with , son lives close by current occupational 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, [employer] How many Children do You have: 1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 Feels Safe at Home: Yes Childhood Exposure to Second-Hand Smoke: Yes (father smoked in home ) Diet: regular Diet Comment: low fiber caffeine: Yes (drinks coffee daily about half a cup ) Dental Care, Regularly: Yes Physical Activity Frequency: 3-4 Times per Week Physical Activity Frequency Comment: 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 Seatbelt Use: always Sunscreen Use: No (says he does cover up well ) Do you think of yourself as: straight/heterosexual Assistive Devices: Cane Review of Systems Review of Systems: All systems reviewed & are unremarkable except as noted in HPI & below Physical Exam Constitutional: well developed; + not well nourished and no acute distress Respiratory: normal respiratory effort, lungs clear to auscultation Cardiovascular: Rate/Rhythm: regular rate and + irregularly irregular Heart Sounds: no murmur Extremities: normal capillary refill; no pedal edema Gastrointestinal (Abdomen): Inspection/Auscultation: + abdomen abnormal to inspection (ostomy with brown stool (reports there before abdominal pain)) and abdomen not distended Percussion/Palpation: + abdomen tender (generalized on palpation) and abdomen soft; no guarding and abdomen not rigid Results & Data Results & Data Vital Signs (Past 12 Hours) Vital Signs Temp Pulse Pulse Resp BP BP Pulse Ox 05/17/25 06:00 78 17 106/72 98 05/17/25 05:00 82 18 126/78 96 05/17/25 03:46 77 05/17/25 02:55 98 05/17/25 02:55 80 19 126/79 98 05/17/25 02:23 36.5 C 101 H 20 126/89 96 O2 Del Method O2 Flow Rate 05/17/25 06:00 Nasal Cannula 2 05/17/25 05:00 Room Air 05/17/25 03:46 05/17/25 02:55 05/17/25 02:55 Room Air 05/17/25 02:23 Room Air Laboratory Results Abnormal lab results None Diagnostic Findings CT abd pelvis IV con only CLINICAL HISTORY: Abdominal pain, eval for SBO TECHNIQUE: Contiguous axial images were obtained from the level of the diaphragm to the pubic symphysis with intravenous contrast. Coronal and sagittal reconstructions were likewise performed and indicated to increase the sensitivity for detecting clinically relevant pathology. If IV contrast material had not been administered, the likelihood of detecting abnormalities relevant to the patient's condition would have been substantially decreased. The CT scan was performed according to ALARA (as low as reasonably achievable). 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 FINDINGS: Moderate fluid collection is noted in the right pleural cavity with enhancing pleural thickening; the possibility of infective etiology is likely. Multiple interlobular and intralobular septal thickening with superimposed ground-glass haze are noted in both lungs, likely sequelae of prior infection. The liver is normal in size and attenuation. No focal liver lesions are seen. There is no intrahepatic or extrahepatic biliary ductal dilatation. Hepatic vasculature is patent. The gallbladder shows microlithiasis without cholecystitis. The spleen, pancreas, and adrenal glands are unremarkable. The kidneys are normal in size and attenuation. There is no hydronephrosis or perinephric fat stranding. No renal calculi or renal masses are identified. The ureters are normal in caliber, and no ureteral calculi are seen. The bladder is normal in contour. Pelvic viscera are unremarkable. Evidence of multiple dilated small bowel loops is noted in the left side of the mid and lower quadrant of the abdomen, with a maximum diameter measuring up to 4 cm, suggestive of small bowel obstruction. At present, no obvious acute transition point is seen, with tapered narrowing and collapse of yellow is seen. This may suggest the possibility of ileus. Left lower quadrant ileostomy status with small parastomal hernia. No obvious localized complication. Large bowel appears decompressed. No imaging evidence of appendicitis. Abdominal and pelvic vasculature is patent. No adenopathy or fluid collections are seen in abdomen. No aggressive appearing osseous lesions are identified. IMPRESSION: Moderate fluid collection is noted in the right pleural cavity with CT-enhancing pleural thickening; possibility of infective etiology is likely. Stable. Multiple interlobular and intralobular septal thickening with superimposed ground-glass haze are noted in both lungs, likely sequelae of prior infection. Stable. Evidence of multiple dilated small bowel loops is noted in the left side of the mid and lower quadrant of the abdomen, with a maximum diameter measuring up to 4 cm, suggestive of small bowel obstruction. At present, no obvious acute transition point is seen, with tapered narrowing and collapse of yellow is seen. May suggest the possibility of ileus. Stable. Left lower quadrant ileostomy status with small parastomal hernia. No obvious localized complication. Stable. Large bowel appears decompressed. Stable. Uncomplicated cholelithiasis. Stable. No other new interval abnormality since prior study. Medications Administered ER Medications Given: Normal saline 500ml bolus Morphine 4mg IV x2 Ondansetron 4mg IV ECG Rate (beats per minute): 85 Rhythm: atrial fibrillation Findings: + RBBB Comparison ECG Date: from (April 10, 2025) Change: the following changes noted (TWI no longer evident in anterior leads) Code Status & VTE Plan Code Status DNR/DNI VTE Prophylaxis Plan VTE Prophylaxis will be ordered: Yes PG Care Time/CCT Total # of Minutes Spent Total Time Spent with Patient: Total time spent is greater than 50% in coordination of care (as documented) at patient's floor/unit and/or counseling patient: Coding Level of Care Code 75045 INT INP/OBS CARE 3/75MIN Diagnoses SBO (small bowel obstruction) K56.609
[2025-05-17] MEDS: LACTATED RINGER'S 1,000 ML IV SCH (07:50)
--- NOTE | 2025-05-17 09:41 | Surgery Consultation ---
Date of Consultation May 17, 2025 Assessment & Plan (1) Ileus: IVF ambulate NG if N/V develop NPO for now; likely advance diet in AM History of Present Illness History of Present Illness This is a 89YO with multiple recurrent small bowel obstructions s/p resection of rectal CA and permanent diverting ostomy who came to ED diminished output from his ostomy bag with intermittent abdominal cramping. Patient has had these recurrently in the past, he states they usually resolve without surgical intervention. On arrival here to the ED the patient is hemodynamically stable, he otherwise appears to be in no acute distress. CT scan shows ileus versus partial SBO. There is more air and stool in bag. Allergies Allergy/AdvReac Type Severity Reaction Status Date / Time tetanus toxoid, adsorbed Allergy Intermediate BLISTERS Verified 05/17/25 02:50 AND EYES SWELLING hydromorphone AdvReac Intermediate HALLUCINATI Verified 05/17/25 02:50 ONS lorazepam AdvReac Intermediate HALLUCINATI Verified 05/17/25 02:50 ONS Home Medications Medication Instructions Recorded Confirmed Type mecobalamin (vitamin B12) 1,000 1,000 mcg PO QPM 07/23/20 05/17/25 History mcg chewable tablet cholecalciferol (vitamin D3) 50 50 mcg PO QAM 12/10/20 05/17/25 History mcg (2,000 unit) capsule sdusalps-[id number]-naxit 300 mcg-K 60 1 tab PO QPM 12/10/20 05/17/25 History mcg-lycop 600 mcg-lutein 300 mcg tablet (Centrum Silver Men) metformin 500 mg tablet,extended 500 mg PO QPM #90 tabs 05/03/24 05/17/25 Rx release 24 hr glipizide 5 mg tablet, extended 5 mg PO QAM #90 tabs 06/26/24 05/17/25 Rx release 24 hr pantoprazole 40 mg tablet,delayed 40 mg PO BID #180 tabs 08/21/24 05/17/25 Rx release ferrous sulfate 325 mg (65 mg 325 mg PO HS 09/29/24 05/17/25 History iron) tablet lactobacillus combination no.9 4 4,000 mmu cells PO QPM 03/06/25 05/17/25 History billion cell capsule (Adult 50 Plus Probiotic) aspirin 81 mg tablet,delayed 81 mg PO HS 03/08/25 05/17/25 History release (Adult Low Dose Aspirin) empagliflozin 25 mg tablet 25 mg PO QPM 03/08/25 05/17/25 History metoprolol succinate 50 mg 50 mg PO QAM 03/08/25 05/17/25 History tablet,extended release 24 hr rivaroxaban 15 mg tablet (Xarelto) 15 mg PO QAM 03/08/25 05/17/25 History Saccharomyces boulardii 250 mg 250 mg PO QAM 03/23/25 05/17/25 History capsule (Florastor) diltiazem HCl 120 mg 120 mg PO HS #90 caps 03/26/25 05/17/25 Rx capsule,extended release 24 hr (Cartia XT) levothyroxine 50 mcg tablet 50 mcg PO QPM #90 tabs 03/28/25 05/17/25 Rx simvastatin 40 mg tablet 40 mg PO HS #90 tabs 04/12/25 05/17/25 Rx ipratropium 0.5 mg-albuterol 3 mg 3 ml inhalation Q8H use with 04/18/25 05/17/25 Rx (2.5 mg base)/3 mL nebulization nebulizer 2 to 3 times daily #180 soln mL Flutter Valve #1 ea 04/19/25 Rx nebulizer accessories #1 ea 04/19/25 Rx nebulizer and compressor #1 ea 04/19/25 Rx Patient History Medical History (Updated 05/17/25 @ 09:42 by Amilcar Cortez MD) Gross hematuria Esophageal dysphagia SBO (small bowel obstruction) Mitral regurgitation Hx of gout H/O balance disorder due to iron deficiency causing weakness Dyspnea hx, feels its associated with his low iron and weakness Hx of hyperlipidemia History of hypothyroidism CHLOE (iron deficiency anemia) "gets infusions from janeth gomez" History of dysphagia Diabetes mellitus, type 2 Atrial fibrillation f/u janeth harden cardio Hypertension On anticoagulant therapy xarelto daily Wernicke's aphasia CVA (cerebral vascular accident) hx, 05/27/22-Wernicke's aphasia Classic migraine hx Hiatal hernia Cerebellar hemorrhage hx CKD (chronic kidney disease) Hypertrophy of both inferior nasal turbinates Chronic rhinitis Rotator cuff tear Per MRI 02/2020. Followed by orthopedics. Declined operative management. Colostomy in place Peripheral neuropathy Transient ischemic attack (TIA) hx, 12/18/22 B12 deficiency History of anesthesia reaction had hallucinations 02/2017 w/procedure with dr. tirado Osteoarthritis History of yellow fever many years ago, while in [place] 1950's Squamous cell carcinoma skin of arm Basal cell carcinoma (BCC) of face History of colon cancer 1978 Surgical History H/O hernia repair Hx of abdominal surgery bowel obstruction History of total right hip replacement Hx of vasectomy History of colostomy History of bowel resection for colon cancer History of colonoscopy History of esophagogastroduodenoscopy (EGD) 06/2021 Hiatal hernia small, gastritis Status post Mohs surgery for basal cell carcinoma History of root canal procedure History of wisdom tooth extraction History of tonsillectomy and adenoidectomy History of phacoemulsification of cataract of both eyes with intraocular lens implantation History of cardioversion x2, most recent was years ago Family History Father , age 91 Hypertension Diabetes Mother , age 64 metastatic breast cancer Breast cancer Ovarian cancer Brother Colorectal cancer Other Coronary heart disease No family history of adverse response to anesthesia Denies family history of Prostate cancer Crohn's disease Myocardial infarction Lung cancer Inflammatory bowel disease Social History Smoking Status: Never smoker Tobacco Type: Pipe Age Started Using Tobacco: 22; Age Quit Using Tobacco: 52; Second Hand Exposure: Yes (hx); Do You Dip or Chew Tobacco: No; Hx Alcohol Use: No Hx Substance Use: No Preferred Language: Serbian Communication Ability: Effective Visual Impairment: No Limitations Hearing Ability: Normal 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 Farm Equipment Required: No Beliefs That Will Affect Care: None marital status: Current Living Situation: Spouse Current Living Situation Comment: lives with , son lives close by current occupational 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[employer], [employer] How many Children do You have: 1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 Feels Safe at Home: Yes Childhood Exposure to Second-Hand Smoke: Yes (father smoked in home ) Diet: regular Diet Comment: low fiber caffeine: Yes (drinks coffee daily about half a cup ) Dental Care, Regularly: Yes Physical Activity Frequency: 3-4 Times per Week Physical Activity Frequency Comment: 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 Seatbelt Use: always Sunscreen Use: No (says he does cover up well ) Do you think of yourself as: straight/heterosexual Assistive Devices: Cane Review of Systems Constitutional: no fever and no chills Respiratory: no cough and no dyspnea Cardiovascular: no chest pain Gastrointestinal: + abdominal pain and + nausea; no vomiti ng Genitourinary: no dysuria Integumentary: no problem reported Neurologic: no localized weakness and no generalized weakness Psychiatric: no behavioral changes Hematologic / Lymphatic: no easy bleeding and no easy bruising Physical Exam Constitutional: WD/WN, vitals as above Eyes: no scleral abnormality Neck: trachea midline Respiratory: normal respiratory effort, lungs clear to auscultation Cardiovascular: RRR, no murmur, no edema Gastrointestinal (Abdomen): Inspection/Auscultation: abdomen normal to inspection, + abdomen distended and normal bowel sounds Percussion/Palpation: + abdomen tender and abdomen soft; no guarding and abdomen not rigid Musculoskeletal: Head/Neck/Chest: normocephalic and head atraumatic Skin: no rashes, warm and dry Results & Data Vital Signs (Past 12 Hours) Vital Signs Temp Pulse Pulse Resp BP BP Pulse Ox 05/17/25 08:07 75 05/17/25 08:00 84 16 117/79 99 05/17/25 06:00 78 17 106/72 98 05/17/25 05:00 82 18 126/78 96 05/17/25 03:46 77 05/17/25 02:55 98 05/17/25 02:55 80 19 126/79 98 05/17/25 02:23 36.5 C 101 H 20 126/89 96 O2 Del Method O2 Flow Rate 05/17/25 08:07 05/17/25 08:00 Room Air 05/17/25 06:00 Nasal Cannula 2 05/17/25 05:00 Room Air 05/17/25 03:46 05/17/25 02:55 05/17/25 02:55 Room Air 05/17/25 02:23 Room Air Diagnostic Findings EXAM: CT abd pelvis IV con only CLINICAL HISTORY: Abdominal pain, eval for SBO TECHNIQUE: Contiguous axial images were obtained from the level of the diaphragm to the pubic symphysis with intravenous contrast. Coronal and sagittal reconstructions were likewise performed and indicated to increase the sensitivity for detecting clinically relevant pathology. If IV contrast material had not been administered, the likelihood of detecting abnormalities relevant to the patient's condition would have been substantially decreased. The CT scan was performed according to ALARA (as low as reasonably achievable). 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 FINDINGS: Moderate fluid collection is noted in the right pleural cavity with enhancing pleural thickening; the possibility of infective etiology is likely. Multiple interlobular and intralobular septal thickening with superimposed ground-glass haze are noted in both lungs, likely sequelae of prior infection. The liver is normal in size and attenuation. No focal liver lesions are seen. There is no intrahepatic or extrahepatic biliary ductal dilatation. Hepatic vasculature is patent. The gallbladder shows microlithiasis without cholecystitis. The spleen, pancreas, and adrenal glands are unremarkable. The kidneys are normal in size and attenuation. There is no hydronephrosis or perinephric fat stranding. No renal calculi or renal masses are identified. The ureters are normal in caliber, and no ureteral calculi are seen. The bladder is normal in contour. Pelvic viscera are unremarkable. Evidence of multiple dilated small bowel loops is noted in the left side of the mid and lower quadrant of the abdomen, with a maximum diameter measuring up to 4 cm, suggestive of small bowel obstruction. At present, no obvious acute transition point is seen, with tapered narrowing and collapse of yellow is seen. This may suggest the possibility of ileus. Left lower quadrant ileostomy status with small parastomal hernia. No obvious localized complication. Large bowel appears decompressed. No imaging evidence of appendicitis. Abdominal and pelvic vasculature is patent. No adenopathy or fluid collections are seen in abdomen. No aggressive appearing osseous lesions are identified. IMPRESSION: Moderate fluid collection is noted in the right pleural cavity with CT-enhancing pleural thickening; possibility of infective etiology is likely. Stable. Multiple interlobular and intralobular septal thickening with superimposed ground-glass haze are noted in both lungs, likely sequelae of prior infection. Stable. Evidence of multiple dilated small bowel loops is noted in the left side of the mid and lower quadrant of the abdomen, with a maximum diameter measuring up to 4 cm, suggestive of small bowel obstruction. At present, no obvious acute transition point is seen, with tapered narrowing and collapse of yellow is seen. May suggest the possibility of ileus. Stable. Left lower quadrant ileostomy status with small parastomal hernia. No obvious localized complication. Stable. Large bowel appears decompressed. Stable. Uncomplicated cholelithiasis. Stable. No other new interval abnormality since prior study.
[2025-05-17] MEDS ORDERED: MoRPHine SULFATE 2 MG/ML CARP IV PRN (11:38)
[2025-05-17] MEDS ORDERED: KETOROLAC TROMETHAMINE 15 MG/ML VIAL IV PRN (11:38)
[2025-05-17] MEDS ORDERED: MoRPHine SULFATE 4 MG/ML 1 ML CARP\\VIAL IV PRN (11:38)
[2025-05-17] MEDS ORDERED: ONDANSETRON INJ 2 MG/ML 2 ML VIAL IV PRN (11:38)
[2025-05-17] MEDS ORDERED: ACETAMINOPHEN 1,000 MG/100 ML VIAL IV PRN (11:38)
[2025-05-17] MEDS: RIVAROXABAN 15 MG TAB PO SCH (13:01)
[2025-05-17] MEDS: METOPROLOL SUCC 50MG EXT REL TAB PO SCH (13:01)
[2025-05-17] MEDS ORDERED: GLUCAGON FOR INJ 1 MG VIAL SQ PRN (18:02)
[2025-05-17] MEDS ORDERED: GLUCOSE 40% GEL 15 GM TUBE PO PRN (18:02)
[2025-05-17] MEDS ORDERED: GLUCOSE 10 TAB/TUBE PO PRN (18:02)
[2025-05-17] MEDS ORDERED: CARBOHYDRATES FOR HYPOGLYCEMIA PO PRN (18:02)
--- NOTE | 2025-05-17 18:11 | Electrocardiogram Report ---
Test Reason : Blood Pressure : */* mmHG Vent. Rate : 85 BPM Atrial Rate : * BPM P-R Int : * ms QRS Dur : 148 ms QT Int : 404 ms P-R-T Axes : * 245 -15 degrees QTcB Int : 480 ms Atrial fibrillation with premature ventricular or aberrantly conducted complexes Right bundle branch block Abnormal ECG When compared with ECG of 10-Apr-2025 15:20, T wave inversion no longer evident in Anterior leads Confirmed by Tad Patel ([id number]) on 05/17/2025 6:11:08 PM Referred By: REFERRED SELF Confirmed By: Tad Patel
[2025-05-17] MEDS ORDERED: Nursing to Pharmacy Communication SCH (19:30)
[2025-05-17] MEDS: ALBUT/IPRATROP 3MG/0.5MG NEB 3 ML VIAL INH SCH (20:40)
[2025-05-17] MEDS ORDERED: INSULIN ASPART PER UNIT CHARGE SC SCH (21:00)
[2025-05-17] MEDS: SIMVASTATIN 40 MG TAB PO SCH (21:02)
[2025-05-17] MEDS: ASPIRIN 81 MG ECTAB PO SCH (21:02)
[2025-05-17] MEDS: DEXTROSE 50% 50 ML SYRINGE IV PRN (23:43)
[2025-05-18] MEDS: INSULIN ASPART PER UNIT CHARGE SC SCH (00:03)
[2025-05-18] MEDS: LEVOTHYROXINE SODIUM 50 MCG TABLET PO SCH (05:51)
[2025-05-18] MEDS: D5W AND LACTATED RINGERS 1,000 ML IV SCH (06:09)
--- NOTE | 2025-05-18 08:44 | Surgery Progress Note ---
Date of Service May 18, 2025 Assessment & Plan (1) SBO (small bowel obstruction): Plan: resolved SBO advance diet as tolerated Admission and Anticipated Discharge Date Admission Date: May 17, 2025 Subjective passing stool thru ostomy Review of Systems Constitutional: no fever and no chills Respiratory: no dyspnea Cardiovascular: no chest pain Gastrointestinal: no abdominal pain, no nausea, no vomiting and no change in bowel habits Neurologic: no localized weakness Psychiatric: no behavioral changes Physical Exam Respiratory: normal respiratory effort Cardiovascular: Rate/Rhythm: regular rate and regular rhythm Gastrointestinal (Abdomen): Inspection/Auscultation: abdomen normal to inspection and normal bowel sounds; abdomen not distended Percussion/Palpation: abdomen soft; abdomen nontender ostomy pink and patent Musculoskeletal: Head/Neck/Chest: normocephalic and head atraumatic Results & Data Vital Signs (Past 12 Hours) Vital Signs Temp Pulse Resp BP BP Pulse Ox O2 Del Method 05/18/25 07:59 36.4 C L 95 H 18 122/77 92 Room Air 05/18/25 07:31 71 18 91 Room Air 05/17/25 23:38 36.4 C L 69 16 91/51 L 95 Room Air 05/17/25 21:08 74 101/65 05/17/25 21:00 36.4 C L 78 18 99/63 L 95 Room Air 05/17/25 20:55 Room Air
--- NOTE | 2025-05-18 16:44 | Hospitalist Progress Note ---
Date of Service May 18, 2025 Assessment & Plan (1) SBO (small bowel obstruction): Plan Small bowel obstruction Full liquids, stop IV fluids, historically resolves with conservative management Pain control with acetaminophen 1st line, Toradol 2nd line, Morphine try to a void but 3rd line Ondansetron for nausea Will defer NG tube as no current nausea/vomiting If doing well tomorrow likely discharge T2DM Hold PO meds BSG q6h while NPO then ACHS Insulin as needed for correction Permanent atrial fibrillation Rate controlled, will continue his usual diltiazem and metoprolol Continue Xarelto for stroke risk reduction GERD Continue pantoprazole Hypothyroidism TSH normal in March Continue his usual levothyroxine dosing VTE Prophylaxis - Xarelto Disposition - admit to med/surg Admission and Anticipated Discharge Date Admission Date: May 17, 2025 Subjective Improved abdominal pain. Stool in ostomy Physical Exam Constitutional: well developed; + not well nourished and no acute distress Respiratory: normal respiratory effort, lungs clear to auscultation Cardiovascular: Rate/Rhythm: regular rate and + irregularly irregular Heart Sounds: no murmur Extremities: normal capillary refill; no pedal edema Gastrointestinal (Abdomen): Inspection/Auscultation: + abdomen abnormal to inspection (ostomy empty (reports after bowel movement) and abdomen not distended Percussion/Palpation: abdomen soft; abdomen nontender, no guarding and abdomen not rigid Results & Data Results & Data Vital Signs (Past 12 Hours) Vital Signs Temp Pulse Resp BP Pulse Ox O2 Del Method 05/18/25 15:56 36.6 C 88 17 117/77 92 Room Air 05/18/25 07:59 36.4 C L 95 H 18 122/77 92 Room Air 05/18/25 07:31 71 18 91 Room Air PG Care Time/CCT Total # of Minutes Spent Total Time Spent with Patient: Total time spent is greater than 50% in coordination of care (as documented) at patient's floor/unit and/or counseling patient: Coding Level of Care Code 76869 SUB INP/OBS CARE 2/35MIN Diagnoses SBO (small bowel obstruction) K56.609
[2025-05-18] MEDS: ALBUT/IPRATROP 3MG/0.5MG NEB 3 ML VIAL ONE (21:10)
[2025-05-18] MEDS: ALBUT/IPRATROP 3MG/0.5MG NEB 3 ML VIAL INH SCH (21:12)
[2025-05-19 07:18] VITALS: TEMP 97.9
[2025-05-19 07:26] VITALS: RESP 18; O2SAT 95
[2025-05-19] MEDS: INSULIN ASPART PER UNIT CHARGE SC SCH (08:59)
--- NOTE | 2025-05-19 09:23 | Discharge Summary ---
Discharge Summary Date of Service May 19, 2025 Principal Dx & Hospital Course #1 = Principal Diagnosis (1) SBO (small bowel obstruction): Plan Amilcar Morin is an 89 year old male admitted to [facility] from May 172024 due to abdominal pain. He was diagnosed with small bowel obstruction treated with nothing to eat and intravenous fluids. His diet was slowly reintroduced and now tolerating a normal diet. Recommend going back to clear liquids if your pain returns. Please continue to hold your glipizide until your appetite returns to normal as this risks having low glucose levels. Notes For Next Care Provider No routine follow up required Medication Changes From Visit None Admission HPI Per Admitting Provider Amilcar Morin is an 89 year old male who presents to the ER with abdominal pain. He has a significant history of colon cancer with partial bowel resection and ostomy with recurrent bowel obstructions and feels this is similar. He has had diminished output from his ostomy with abdominal cramping. Historically these bowel obstruction resolve with conservative measures. Discharge Exam Constitutional well developed; + not well nourished and no acute distress Respiratory normal respiratory effort, lungs clear to auscultation Cardiovascular Rate/Rhythm: regular rate and + irregularly irregular Heart Sounds: no murmur Extremities: normal capillary refill; no pedal edema Gastrointestinal (Abdomen) Inspection/Auscultation: abdomen normal to inspection; abdomen not distended Percussion/Palpation: abdomen soft; abdomen nontender, no guarding and abdomen not rigid Discharge Plan Discharge Items Patient Disposition: Home - Self-Care Reason For Visit: SMALL BOWEL OBSTRUCTION Discharge Diagnosis: Small bowel obstruction Condition on Discharge: Fair Activity: Resume your previous activity Non-emergency contact: Primary Care Provider Call non-emergency contact if: you have any medication questions and your symptoms worsen Follow-up/Referrals: Romulo Barker, [Primary Care Provider] - Diet: Regular Addtl Attending Provider Instructions: You were admitted to [facility] from May 172024 due to abdominal pain. You were diagnosed with small bowel obstruction treated with nothing to eat and intravenous fluids. You are now tolerating a normal diet, recommend going back to clear liquids if your pain returns. Please continue to hold your glipizide until your appetite returns to normal as this risks having low glucose levels. Pending Studies at Discharge: No Stand-Alone Forms: My [facility], Smoking Cessation Medications and DC Order Prescriptions: Continued metformin 500 mg tablet extended release 24 hr 500 mg PO QPM Qty: 90 3RF Patient Comments: w/dinner glipizide 5 mg tablet extended release 24hr 5 mg PO QAM Qty: 90 3RF pantoprazole 40 mg tablet,delayed release (DR/EC) 40 mg PO BID Qty: 180 3RF diltiazem HCl [Cartia XT] 120 mg capsule,extended release 24hr 120 mg PO HS Qty: 90 3RF levothyroxine 50 mcg tablet 50 mcg PO QPM Qty: 90 3RF Rx Instructions: about lunchtime last TSH 03/23/25 1.833 simvastatin 40 mg tablet 40 mg PO HS Qty: 90 3RF (DME) nebulizer accessories Misc See Rx Instructions .Route Qty: 1 0RF Rx Instructions: As directed (DME) nebulizer and compressor Device See Rx Instructions .Route Qty: 1 0RF Rx Instructions: As directed (DME) Flutter Valve Device See Rx Instructions .Route Qty: 1 0RF Rx Instructions: As directed mecobalamin (vitamin B12) 1,000 mcg tablet,chewable 1,000 mcg PO QPM Centrum Silver Men 300-600-300 mcg tablet 1 tab PO QPM cholecalciferol (vitamin D3) 50 mcg (2,000 unit) capsule 50 mcg PO QAM Adult 50 Plus Probiotic 4 billion cell capsule 4,000 mmu cells PO QPM Rx Instructions: administer with a meal ferrous sulfate 325 mg (65 mg iron) tablet 325 mg PO HS ipratropium-albuterol 0.5 mg-3 mg(2.5 mg base)/3 mL solution for nebulization 3 ml inhalation Q8H Qty: 180 4RF Saccharomyces boulardii [Florastor] 250 mg Capsule 250 mg PO QAM metoprolol succinate 50 mg tablet extended release 24 hr 50 mg PO QAM aspirin [Adult Low Dose Aspirin] 81 mg tablet,delayed release (DR/EC) 81 mg PO HS Xarelto 15 mg tablet 15 mg PO QAM Rx Instructions: must administer with evening meal empagliflozin 25 mg tablet 25 mg PO QPM Discharge Orders: Discharge Order (Routine); Ordered 05/19/25 Ordered By: Richard Campbell Admission Data Admit Date/Time: 05/17/25 07:16 Attending Provider: Richard Campbell Admit Provider: Richard Campbell Primary Care Provider: Romulo Barker Other Providers: Amilcar Cortez; Lolita Pruett Other Interventions: Discharge Summary Assessment (RN) Last Done: 05/19/25 09:53 Hospital Stay Data Consultations 05/17/25 06:36 Consult General Surgery Routine 05/17/25 06:40 ED Decision to Admit Stat Diagnostic Imagining Performed 05/17/25 02:41 CT Abd and Pelvis [CT abd pelvis IV con only] Stat Pending Results Patient Have Any Pending Studies at Discharge: No Discharge Instructions Given to Patient (Per Discharging Provider) You were admitted to [facility] from May 17 - 2024 due to abdominal pain. You were diagnosed with small bowel obstruction treated with nothing to eat and intravenous fluids. You are now tolerating a normal diet, recommend going back to clear liquids if your pain returns. Please continue to hold your glipizide until your appetite returns to normal as this risks having low glucose levels. Total Time Total Time Spent Total Time Spent (In Minutes): 25 Total Time Includes: Examination of the Patient, Discharge Planning and Medication Reconciliation Coding Level of Care Code 44034 IN/OBS DISCH 30 MIN/LESS Diagnoses SBO (small bowel obstruction) K56.609
[2025-05-19 09:55] VITALS: BP 117/62; PULSE 67
== END 2025-05-19 10:54 | disposition home or self-care (01) | DRG 389 ==
LOC: ED 02:20 → EDINP 07:16 → 3E 11:02